=== PATIENT | female | born 1965 | race Caucasian/White ===

== ENCOUNTER 2024-09-30 13:30 | Inpatient (IN) ==
--- NOTE | 2024-09-30 13:38 | Emergency Department Note ---
Impression & Plan Recurrent carcinoma of endometrium, Ambulatory dysfunction, Candidal intertrigo, Colovaginal fistula ED Provider Note NAME: JULISA CHAVEZ AGE: 59 SEX: F : 1965 ARRIVES VIA: Walk-In INFORMANT: Patient, , daughter ED PROVIDER(S): James Chavez MD CHIEF COMPLAINT: Outpatient referral, weight gain, history of endometrial cancer MEDICAL DECISION MAKING: Patient presents due to concern for weakness fatigue and weight gain. IV was established and blood work was obtained. Reported bowel or bladder incontinence but this has been ongoing. The patient denies any current back pain he does not have any saddle anesthesia. The patient is able to move the bilateral lower extremities. CT abdomen pelvis as well as chest were performed and additional lumbar spine. Patient's blood work shows a white count of 10.8 with a hemoglobin of 9.9. The patient's platelet count is unremarkable. Kidney function with a creatinine 1.68. LFTs unremarkable. Urinalysis that showed concern for the possibility of infection. Patient was ordered IV Zosyn in light of the patient's CT abdomen pelvis which does show a colovaginal fistula. Also nonspecific wall thickening of the rectum with possible proctitis. Also hyperdense focus noted within the bladder which could be stone versus a lesion. I did inform the patient the patient's family bedside. Patient's lumbar CT negative. I did consider escalation of care and offered admission. After further discussion they would prefer inpatient care as they do not believe they are able to take care of her at home. There was to be discussion tomorrow about some additional in-home care/home health. I did speak the on-call hospitalist Harmony Branes PA-C and the patient was admitted by Dr. Valverde. Discussion w/ other healthcare providers: Harmony Barnes PA-C and Dr. Valverde inpatient medicine service Prior /Outside records reviewed: I reviewed part of a radiation treatment summary from [facility] dated from January 07, 2024. Patient with a history of stage I FIGO grade [id number] moderately differentiated adenocarcinoma of the endometrium status post ARISTEO/BSO with a local recurrence status post 3 cycles of chemo at that time. Patient had been seen by Dr. Raya at that time. Review of the patient's impression and plan from earlier today notes that the patient is on Lenvima and Keytruda should consider restaging stands and is established with palliative care as well as with urogynecology. They do believe the patient may have development of ascites and has had declining kidney function with a most recent creatinine 1.8. Patient also with reported bowel and bladder incontinence which has progressively gotten worse. Differential diagnosis: Infection, dehydration, metabolic abnormality, hypo/hyperglycemia, electrolyte imbalance, anemia, UTI, pneumonia, thyroid dysfunction among others were considered. Diagnostics, as interpreted by me: ECG: Normal sinus rhythm, rate of 75, normal intervals, normal axis no ST elevations, Q waves noted anteriorly. Cardiac monitoring: An order was placed for continuous cardiac monitoring. The monitor shows a rate of 77 with sinus rhythm. Patient was placed on pulse oximetry Medical decision rules: None Imaging studies: I informally interpreted the patient's chest x-ray does not show obvious pneumonia or pneumothorax with formal report to follow. HPI: Patient presents due to concern for outpatient referral secondary to weight gain lethargy shortness of breath. Patient does have a known history of endometrial carcinoma currently on Keytruda which she initiated about a week prior. Patient reports that she has had about a 20 pound weight gain in the last month. Patient was seen in the outpatient setting and then referred here for further evaluation and treatment after being seen by oncology today. Patient denies any chest pains but does have shortness of breath. The patient denies any falls or trauma. Family also reports that they were recently seen and placed on medication for fungal rash. Patient has noticed that she has had some skin breakdown to her abdominal and inguinal creases. Patient has had decreased mobility. PAST MEDICAL HISTORY: See Below PAST SURGICAL HISTORY: See Below SOCIAL HISTORY: See Below HOME MEDICATIONS: See Below ALLERGIES: See Below VITALS: See Below PHYSICAL EXAMINATION: GENERAL: NAD, non-toxic. Wearing glasses. EYE EXAM: Normal conjunctiva. PERRL, no anisocoria and EOM's grossly intact w/o pain. OROPHARYNX: Moist mucus membranes, grossly normal dentition. NECK: Trachea midline, no stridor. Supple, no nuchal rigidity, no adenopathy, non-tender. No signs of meningismus. FROM of the neck with good chin to chest and neck extension. LUNGS: Clear to auscultation. Normal chest wall mechanics. HEART: NSR, no MRG. ABDOMEN: Abdomen soft, right upper quadrant and epigastric pain, no lower abdominal pain, no masses, no rebound or guarding. BACK: No CVA TTP. SKIN: Significant intertriginous and moist rash noted over the folds of the lower pannus as well as the groin. UPPER EXTREMITIES: Upper extremities are grossly normal. LOWER EXTREMITIES: Grossly normal, no edema. NEURO EXAM: A&O x3, cranial nerves II-XII grossly intact, normal speech, moves all 4 extremities. Past Med/Surg History Problem List (Updated 09/30/24 @ 19:42 by James Chavez MD) Fecal incontinence Urinary incontinence Acute kidney injury superimposed on stage 3a chronic kidney disease Colovaginal fistula (Acute) Candidal intertrigo (Acute) Ambulatory dysfunction (Acute) Recurrent carcinoma of endometrium (Acute) Visual hallucinations Abnormal CT of the abdomen Hydroureteronephrosis Constipation Medical History Port-A-Cath in place Pseudotumor cerebri Iron deficiency anemia Stress incontinence Degenerative disc disease, cervical History of panic disorder Recurrent major depressive disorder hx Prediabetes per s record Hx of iron deficiency anemia Dyslipidemia Nausea and vomiting after administration of anesthetic agent w/ first Anxiety and depression History of endometrial cancer Diagnosed 12/28/21 Recurrence diagnosed on 08/06/23 Hx of migraines Sleep apnea non compliant w/device Blood in stool currently, "had been taking 10-200mg tablets per day until 06/21/23" Hypothyroidism Hypertension Restless legs syndrome Surgical History H/O tubal ligation Hx of arthroscopic knee surgery Bilateral H/O esophagogastroduodenoscopy History of arthroscopy of both knees Hx of section x2 Hx of colonoscopy [place] teeth removed Hx of total hysterectomy with removal of both tubes and ovaries laparoscopic 02/19/22 Family History Mother , in her 70s MVA (motor vehicle accident) Cancer "Throat cancer" - had larynx removed; Hypertension Father , in his 70s Myocardial infarction Prostate cancer Brother No problems noted. Brother No problems noted. Brother No problems noted. Sister No problems noted. Sister Lupus Daughter No problems noted. 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 How many Children do You have: 2 Feels Safe at Home: Yes Diet: regular caffeine: No during the past year weight has: remained stable Assistive Devices: Glasses Allergies Allergies Allergy/AdvReac Type Severity Reaction Status Date / Time gabapentin Allergy hallucinations, Verified 10/02/23 08:49 tachycardia, "arms started flying" Home Meds Home Medications Medication Instructions Recorded Confirmed ibuprofen 200 mg capsule 400 mg PO Q6H PRN Pain 06/24/23 09/30/24 lisinopril 5 mg tablet 5 mg PO QAM 06/24/23 09/30/24 docusate sodium 100 mg capsule 100 mg PO BID PRN Constipation 10/02/23 09/30/24 levothyroxine 200 mcg capsule 200 mcg PO QAM 10/02/23 09/30/24 nystatin 100,000 unit/gram topical 1 applic topical DAILY PRN Other 10/02/23 09/30/24 powder nystatin-triamcinolone 100,000 1 applic topical BID PRN Other 10/02/23 09/30/24 unit/g-0.1 % topical cream ondansetron HCl 8 mg tablet 8 mg PO Q8H PRN n/v 10/02/23 09/30/24 prochlorperazine maleate 10 mg 10 mg PO Q6H PRN n/v 10/02/23 09/30/24 tablet (Compazine) ropinirole 2 mg tablet 3 mg PO TID 10/02/23 09/30/24 B12 1 tab PO DAILY 09/30/24 09/30/24 Dilaudid 2 mg PO Q4H PRN Breakthrough Pain, 09/30/24 09/30/24 Severe clonazepam 0.5 mg tablet 0.5 - 1 mg PO HS 09/30/24 09/30/24 lenvatinib 20 mg/day (10 mg x 2) 20 mg PO DAILY 09/30/24 09/30/24 capsule (Lenvima) nortriptyline 50 mg capsule 50 mg PO HS 09/30/24 09/30/24 oxybutynin chloride 10 mg 20 mg PO DAILY 09/30/24 09/30/24 tablet,extended release 24 hr polyethylene glycol 3350 17 gram 17 g PO DAILY 09/30/24 09/30/24 oral powder packet (Miralax) urea 20 % topical cream 1 applic topical DAILY 09/30/24 09/30/24 Results & Data (ED) Vital Signs Vital Signs - 24 hr 09/30/24 13:32 09/30/24 14:36 09/30/24 14:36 Temperature 36.8 C Temperature Source Oral Pulse Rate 82 Pulse Rate from SpO2 Sensor Respiratory Rate 18 Blood Pressure 142/86 H 156/117 H 156/117 H Blood Pressure Mean 104 123 123 Pulse Oximetry 92 Oxygen Delivery Method Room Air Sepsis Recent Fever Within 48 Hours No Sepsis New/Unexplained Change in Mental Status No Sepsis Action Taken by Nursing No Action Required 09/30/24 14:36 09/30/24 14:36 09/30/24 14:36 Temperature Temperature Source Pulse Rate Pulse Rate from SpO2 Sensor Respiratory Rate Blood Pressure 156/117 H 156/117 H 156/117 H Blood Pressure Mean 123 123 123 Pulse Oximetry Oxygen Delivery Method Sepsis Recent Fever Within 48 Hours Sepsis New/Unexplained Change in Mental Status Sepsis Action Taken by Nursing 09/30/24 14:36 09/30/24 14:36 09/30/24 14:36 Temperature Temperature Source Pulse Rate Pulse Rate from SpO2 Sensor Respiratory Rate Blood Pressure 156/117 H 156/117 H 156/117 H Blood Pressure Mean 123 123 123 Pulse Oximetry Oxygen Delivery Method Sepsis Recent Fever Within 48 Hours Sepsis New/Unexplained Change in Mental Status Sepsis Action Taken by Nursing 09/30/24 14:36 09/30/24 14:36 09/30/24 14:36 Temperature Temperature Source Pulse Rate Pulse Rate from SpO2 Sensor Respiratory Rate Blood Pressure 156/117 H 156/117 H 156/117 H Blood Pressure Mean 123 123 123 Pulse Oximetry Oxygen Delivery Method Sepsis Recent Fever Within 48 Hours Sepsis New/Unexplained Change in Mental Status Sepsis Action Taken by Nursing 09/30/24 14:36 09/30/24 14:36 09/30/24 14:36 Temperature Temperature Source Pulse Rate Pulse Rate from SpO2 Sensor Respiratory Rate Blood Pressure 156/117 H 156/117 H 156/117 H Blood Pressure Mean 123 123 123 Pulse Oximetry Oxygen Delivery Method Sepsis Recent Fever Within 48 Hours Sepsis New/Unexplained Change in Mental Status Sepsis Action Taken by Nursing 09/30/24 14:36 09/30/24 14:36 09/30/24 14:36 Temperature Temperature Source Pulse Rate Pulse Rate from SpO2 Sensor Respiratory Rate Blood Pressure 156/117 H 156/117 H 156/117 H Blood Pressure Mean 123 123 123 Pulse Oximetry Oxygen Delivery Method Sepsis Recent Fever Within 48 Hours Sepsis New/Unexplained Change in Mental Status Sepsis Action Taken by Nursing 09/30/24 14:36 09/30/24 14:36 09/30/24 14:36 Temperature Temperature Source Pulse Rate Pulse Rate from SpO2 Sensor Respiratory Rate Blood Pressure 156/117 H 156/117 H 156/117 H Blood Pressure Mean 123 123 123 Pulse Oximetry Oxygen Delivery Method Sepsis Recent Fever Within 48 Hours Sepsis New/Unexplained Change in Mental Status Sepsis Action Taken by Nursing 09/30/24 14:36 09/30/24 14:36 09/30/24 14:41 Temperature Temperature Source Pulse Rate 69 Pulse Rate from SpO2 Sensor Respiratory Rate Blood Pressure 156/117 H 156/117 H Blood Pressure Mean 123 123 Pulse Oximetry Oxygen Delivery Method Sepsis Recent Fever Within 48 Hours Sepsis New/Unexplained Change in Mental Status Sepsis Action Taken by Nursing 09/30/24 14:42 09/30/24 15:00 09/30/24 15:05 Temperature Temperature Source Pulse Rate 76 92 H Pulse Rate from SpO2 Sensor 76 77 Respiratory Rate 27 H 24 Blood Pressure Blood Pressure Mean Pulse Oximetry 91 91 Oxygen Delivery Method Room Air Sepsis Recent Fever Within 48 Hours Sepsis New/Unexplained Change in Mental Status Sepsis Action Taken by Nursing 09/30/24 15:33 09/30/24 15:36 09/30/24 15:36 Temperature Temperature Source Pulse Rate 65 Pulse Rate from SpO2 Sensor 76 Respiratory Rate 22 Blood Pressure 120/85 120/85 Blood Pressure Mean 100 100 Pulse Oximetry 90 Oxygen Delivery Method Sepsis Recent Fever Within 48 Hours Sepsis New/Unexplained Change in Mental Status Sepsis Action Taken by Nursing 09/30/24 15:36 09/30/24 15:36 09/30/24 15:36 Temperature Temperature Source Pulse Rate 69 Pulse Rate from SpO2 Sensor 74 Respiratory Rate 23 Blood Pressure 120/85 120/85 Blood Pressure Mean 100 100 Pulse Oximetry 91 Oxygen Delivery Method Sepsis Recent Fever Within 48 Hours Sepsis New/Unexplained Change in Mental Status Sepsis Action Taken by Nursing 09/30/24 15:36 09/30/24 15:36 09/30/24 15:36 Temperature Temperature Source Pulse Rate Pulse Rate from SpO2 Sensor Respiratory Rate Blood Pressure 120/85 120/85 120/85 Blood Pressure Mean 100 100 100 Pulse Oximetry Oxygen Delivery Method Sepsis Recent Fever Within 48 Hours Sepsis New/Unexplained Change in Mental Status Sepsis Action Taken by Nursing 09/30/24 15:48 09/30/24 16:00 09/30/24 16:00 Temperature Temperature Source Pulse Rate 66 Pulse Rate from SpO2 Sensor 72 Respiratory Rate 19 Blood Pressure 137/81 137/81 Blood Pressure Mean 124 124 Pulse Oximetry 95 Oxygen Delivery Method Sepsis Recent Fever Within 48 Hours Sepsis New/Unexplained Change in Mental Status Sepsis Action Taken by Nursing 09/30/24 16:00 09/30/24 16:00 09/30/24 16:00 Temperature Temperature Source Pulse Rate Pulse Rate from SpO2 Sensor Respiratory Rate Blood Pressure 137/81 137/81 137/81 Blood Pressure Mean 124 124 124 Pulse Oximetry Oxygen Delivery Method Sepsis Recent Fever Within 48 Hours Sepsis New/Unexplained Change in Mental Status Sepsis Action Taken by Nursing 09/30/24 16:00 09/30/24 16:03 09/30/24 16:24 Temperature Temperature Source Pulse Rate 55 L 67 Pulse Rate from SpO2 Sensor 73 74 Respiratory Rate 24 16 Blood Pressure 137/81 129/80 Blood Pressure Mean 124 96 Pulse Oximetry 91 91 Oxygen Delivery Method Sepsis Recent Fever Within 48 Hours Sepsis New/Unexplained Change in Mental Status Sepsis Action Taken by Nursing 09/30/24 16:33 09/30/24 16:57 09/30/24 17:00 Temperature Temperature Source Pulse Rate 57 L 75 Pulse Rate from SpO2 Sensor 74 75 Respiratory Rate 24 28 H Blood Pressure 148/92 H Blood Pressure Mean 99 Pulse Oximetry 91 91 Oxygen Delivery Method Sepsis Recent Fever Within 48 Hours Sepsis New/Unexplained Change in Mental Status Sepsis Action Taken by Nursing 09/30/24 17:00 09/30/24 17:00 09/30/24 17:03 Temperature Temperature Source Pulse Rate 72 Pulse Rate from SpO2 Sensor 78 Respiratory Rate 27 H Blood Pressure 148/92 H 148/92 H Blood Pressure Mean 99 99 Pulse Oximetry 90 Oxygen Delivery Method Sepsis Recent Fever Within 48 Hours Sepsis New/Unexplained Change in Mental Status Sepsis Action Taken by [facility] Medications Current Medication List: was personally reviewed by me Laboratory Data Attestation: I reviewed the patient's lab results. 09/30/24 15:31 09/30/24 15:31 Lab Results 09/30/24 09/30/24 Range/Units 14:30 15:31 WBC 10.81 H (4.8-10.8) K/ul RBC 3.94 L (4.20-5.40) M/uL Hgb 9.9 L (12.0-16.0) g/dl Hct 32.4 L (37.0-47.0) % MCV 82.2 (80.0-100.0) fL MCH 25.1 (25.0-34.0) pg MCHC 30.6 L (32.0-36.0) g/dL RDW Std Deviation 54.3 H (36.4-46.3) fL RDW Coeff of Rodri 18.6 H (11.5-14.5) % Plt Count 268 (130-400) K/uL MPV 8.6 L (9.4-12.4) fL Immature Gran % (Auto) 0.6 % Neut % (Auto) 83.4 % Lymph % (Auto) 4.9 % [place] % (Auto) 10.2 % Eos % (Auto) 0.6 % Baso % (Auto) 0.3 % Neut # (Auto) 9.02 H (1.40-6.50) K/uL Lymph # (Auto) 0.53 L (1.20-3.40) K/uL [place] # (Auto) 1.10 H (0.11-0.59) K/uL Eos # (Auto) 0.07 (0.00-0.50) K/uL Baso # (Auto) 0.03 (0.00-0.20) K/uL Immature Gran # (Auto) 0.06 (0.01-0.20) K/uL PT 11.4 (9.0-12.0) Seconds INR 1.1 (0.9-1.1) Sodium 138 (136-145) mmol/L Potassium 4.8 (3.5-5.1) mmol/L Chloride 104 (98-107) mmol/L Carbon Dioxide 27 (21-32) mmol/L Anion Gap 7 (3-11) BUN 26 H (6-23) mg/dl Creatinine 1.68 H (0.6-1.2) mg/dl Est Cr Clr Drug Dosing Not Reportable eGFR 34.82 BUN/Creatinine Ratio 15.5 (10-20) Glucose 103 H (70-99(Fasting)) mg/dl Calcium 9.1 (8.6-10.3) mg/dl Magnesium 2.2 (1.7-2.4) mg/dl Total Bilirubin 0.7 (0.2-1.0) mg/dl AST 20 (13-39) U/L ALT 22 (7-52) U/L Alkaline Phosphatase 97 (34-104) U/L Total Protein 6.9 (6.0-8.3) gm/dl Albumin 3.5 (3.4-5.0) gm/dl Globulin 3.4 (2.5-4.0) gm/dl Albumin/Globulin Ratio 1.0 (0.9-2) TSH 2.832 (0.300-4.500) uIu/ml Urine Color Yellow Urine Appearance Cloudy A (Clear) Urine pH 5.5 (4.5-7.5) Ur Specific [place] 1.018 (1.000-1.030) Urine Protein 1+ H (Negative) Urine Glucose (UA) Negative (Negative) Urine Ketones Trace H (Negative) Urine Blood 2+ H (Negative) Urine Nitrite Negative (Negative) Urine Bilirubin Negative (Negative) Urine Urobilinogen Negative (Negative) Ur Leukocyte Esterase 3+ H (Negative) Urine WBC (Auto) >50 H (0-5) /hpf Urine RBC (Auto) 11-20 H (0-2) /hpf U Hyaline Cast (Auto) 3-5 H (0-2) /lpf U Epithel Cells (Auto) 6-10 H (0-2) /hpf Urine Bacteria (Auto) 3+ H (None Seen) Administered Medications Discontinued Medications Piperacillin Sod/Tazobactam Sod (Zosyn) 4.5 gm in 100 mls @ 200 mls/hr IV NOW ONE; Protocol Stop: 09/30/24 16:23 Last Infusion: 09/30/24 16:56 Dose: Infused Documented By: Admin: 09/30/24 16:24 Dose: 200 mls/hr Documented By: BS Imaging Data Radiologist's Impression: Abdomen/Pelvis CT 09/30/24 14:05 CT chest diagnostic wo con, CT abd pelvis wo con CLINICAL HISTORY: 59 years-old Female with SOB. Acute shortness of breath with history of endometrial carcinoma TECHNIQUE: Multiaxial CT images of the chest, abdomen and pelvis were performed without contrast. A dose lowering technique was utilized adhering to the principles of ALARA. COMPARISON: CT lumbar spine same day FINDINGS: CT CHEST: Unremarkable thyroid. Right IJ [id number] catheter distal tip terminates in the inferior SVC. Trace pericardial effusion. No lymphadenopathy. No pneumothorax, pleural effusion or airspace consolidation. Mild bibasilar atelectasis. Calcified granuloma of the left lower lobe. Central airways are patent. Unremarkable soft tissues. No acute fracture or destructive bone lesion. CT ABDOMEN AND PELVIS: No pneumatosis or pneumoperitoneum. Unremarkable spleen, pancreas and adrenal glands. Mildly distended gallbladder. Liver is within normal limits. Unremarkable left kidney. Moderate right-sided hydroureteronephrosis with dilation of the right ureter extending to the UVJ. No obstructing calculus or lesion identified. Decompressed urinary bladder with wall thickening. Hyperdense focus within the midline lower urinary bladder measures 1.4 cm. Atherosclerosis of the abdominal aorta. No pathologically enlarged lymph nodes. No bowel obstruction. Hysterectomy. Air-filled tract extending vaginal cuff towards the sigmoid colon image 28 series 7. Rectal wall thickening with perirectal stranding. Moderate fecal retention. Marked soft tissues. No acute or destructive bone lesion. IMPRESSION: 1. Moderate right-sided hydroureteronephrosis without obstructing stone or lesion identified. 2. Hyperdense focus within the dependent urinary bladder may represent a stone versus a mucosal lesion. Findings could be correlated with cystoscopy. 3. Prior hysterectomy with colovaginal fistula. 4. Nonspecific wall thickening of the rectum with perirectal stranding may represent a nonspecific proctitis. 5. No bowel obstruction or pneumoperitoneum. 6. No acute intrathoracic abnormality. ACT 112: Negative or not required by law. Electronically signed by: Sathya Gupta M.D. 09/30/2024 3:[address] 09/30/24 14:05 CT chest diagnostic wo con, CT abd pelvis wo con CLINICAL HISTORY: 59 years-old Female with SOB. Acute shortness of breath with history of endometrial carcinoma TECHNIQUE: Multiaxial CT images of the chest, abdomen and pelvis were performed without contrast. A dose lowering technique was utilized adhering to the principles of ALARA. COMPARISON: CT lumbar spine same day FINDINGS: CT CHEST: Unremarkable thyroid. Right IJ [id number] catheter distal tip terminates in the inferior SVC. Trace pericardial effusion. No lymphadenopathy. No pneumothorax, pleural effusion or airspace consolidation. Mild bibasilar atelectasis. Calcified granuloma of the left lower lobe. Central airways are patent. Unremarkable soft tissues. No acute fracture or destructive bone lesion. CT ABDOMEN AND PELVIS: No pneumatosis or pneumoperitoneum. Unremarkable spleen, pancreas and adrenal glands. Mildly distended gallbladder. Liver is within normal limits. Unremarkable left kidney. Moderate right-sided hydroureteronephrosis with dilation of the right ureter extending to the UVJ. No obstructing calculus or lesion identified. Decompressed urinary bladder with wall thickening. Hyperdense focus within the midline lower urinary bladder measures 1.4 cm. Atherosclerosis of the abdominal aorta. No pathologically enlarged lymph nodes. No bowel obstruction. Hysterectomy. Air-filled tract extending vaginal cuff towards the sigmoid colon image 28 series 7. Rectal wall thickening with perirectal stranding. Moderate fecal retention. Marked soft tissues. No acute or destructive bone lesion. IMPRESSION: 1. Moderate right-sided hydroureteronephrosis without obstructing stone or lesion identified. 2. Hyperdense focus within the dependent urinary bladder may represent a stone versus a mucosal lesion. Findings could be correlated with cystoscopy. 3. Prior hysterectomy with colovaginal fistula. 4. Nonspecific wall thickening of the rectum with perirectal stranding may represent a nonspecific proctitis. 5. No bowel obstruction or pneumoperitoneum. 6. No acute intrathoracic abnormality. ACT 112: Negative or not required by law. Electronically signed by: Sathya Gupta M.D. 09/30/2024 3:04 PM Chest X-Ray 09/30/24 14:05 XR chest 1V portable CLINICAL HISTORY: weakness COMPARISON STUDY: Chest CT earlier today FINDINGS: Stable right chest port. Stable mild cardiomegaly without pulmonary vascular congestion. No effusion, consolidation, or pneumothorax. IMPRESSION: No acute findings. ACT 112: Negative or not required by law. Electronically signed by: Kirby Avila M.D. 09/30/2024 3:[address] 09/30/24 14:25 CT lumbar spine wo con CLINICAL HISTORY: endometrial cancer/mass; incontinence COMPARISON STUDY: 07/22/2023. FINDINGS: There is attenuation artifact due to habitus. There is osteopenia. There is moderate degenerative disc disease at L4-5 and L5-S1. There is minimal grade 1 anterolisthesis of L4 on 5. No fracture seen. No severe central canal or neural foraminal narrowing seen. IMPRESSION: 1. No lumbar spine fracture seen. 2. Lower lumbar degenerative changes without severe central canal or neuroforaminal narrowing. ACT 112: Negative or not required by law. Electronically signed by: Kirby Avila M.D. 09/30/2024 2:55 PM Discharge Plan Visit Data Chief Complaint: Referred by Doctor Stated Complaint: ONCOLOGY REFERED ED Provider: James Chavez Discharge Problem: Recurrent carcinoma of endometrium, Ambulatory dysfunction, Candidal intertrigo, Colovaginal fistula Forms Stand Alone Forms: [employer] Prescriptions Prescriptions: No Action nystatin 100,000 unit/gram powder 1 applic topical DAILY PRN (Reason: Other) nystatin-triamcinolone 100,000-0.1 unit/g-% cream 1 applic topical BID PRN (Reason: Other) ropinirole 2 mg tablet 3 mg PO TID levothyroxine 200 mcg capsule 200 mcg PO QAM ondansetron HCl 8 mg tablet 8 mg PO Q8H PRN (Reason: n/v) prochlorperazine maleate [Compazine] 10 mg tablet 10 mg PO Q6H PRN (Reason: n/v) docusate sodium 100 mg capsule 100 mg PO BID PRN (Reason: Constipation) ibuprofen 200 mg Capsule 400 mg PO Q6H PRN (Reason: Pain) lisinopril 5 mg Tablet 5 mg PO QAM B12 1 tab PO DAILY oxybutynin chloride 10 mg Tablet Extended Release 24hr 20 mg PO DAILY urea 20 % Cream 1 applic TOPICAL DAILY Rx Instructions: Apply topically to affected area 2 times a day. Apply topically to hands and feet twice daily - Topical. clonazepam 0.5 mg Tablet 0.5 - 1 mg PO HS Rx Instructions: administer 30 minutes before bedtime nortriptyline 50 mg Capsule 50 mg PO HS Lenvima 20 mg/day (10 mg x 2) Capsule 20 mg PO DAILY Dilaudid 2 mg tablet 2 mg PO Q4H PRN (Reason: Breakthrough Pain, Severe) Rx Instructions: Take 1 Tablet by mouth every 4 hours as needed for Pain, Severe. polyethylene glycol 3350 [Miralax] 17 gram Powder In Packet 17 g PO DAILY Referrals Referrals: Lashawn Becker MD [Primary Care Provider] -
--- NOTE | 2024-09-30 14:56 | CT Scan Report ---
CT lumbar spine wo con CLINICAL HISTORY: endometrial cancer/mass; incontinence COMPARISON STUDY: 07/22/2023. FINDINGS: There is attenuation artifact due to habitus. There is osteopenia. There is moderate degene rative disc disease at L4-5 and L5-S1. There is minimal grade 1 anterolisthesis of L4 on 5. No fractu re seen. No severe central canal or neural foraminal narrowing seen. IMPRESSION: 1. No lumbar spine fracture seen. 2. Lower lumbar degenerative changes without severe central canal or neuroforaminal narrowing. ACT 112: Negative or not required by law. Electronically signed by: Kirby Avila M.D. 09/30/2024 2:55 PM
--- NOTE | 2024-09-30 15:06 | CT Scan Report ---
CT chest diagnostic wo con, CT abd pelvis wo con CLINICAL HISTORY: 59 years-old Female with SOB. Acute shortness of breath with history of endometria l carcinoma TECHNIQUE: Multiaxial CT images of the chest, abdomen and pelvis were performed without contrast. A dose lowering technique was utilized adhering to the principles of ALARA. COMPARISON: CT lumbar spine same day FINDINGS: CT CHEST: Unremarkable thyroid. Right IJ [id number] catheter distal tip terminates in the inferior SVC. Trace pericardial effusion. No lymphadenopathy. No pneumothorax, pleural effusion or airspace c onsolidation. Mild bibasilar atelectasis. Calcified granuloma of the left lower lobe. Central airways are patent. Unremarkable soft tissues. No acute fracture or destructive bone lesion. CT ABDOMEN AND PELVIS: No pneumatosis or pneumoperitoneum. Unremarkable spleen, pancreas and adrenal glands. Mildly distended gallbladder. Liver is within normal limits. Unremarkable left kidney. Modera te right-sided hydroureteronephrosis with dilation of the right ureter extending to the UVJ. No obstr ucting calculus or lesion identified. Decompressed urinary bladder with wall thickening. Hyperdense f ocus within the midline lower urinary bladder measures 1.4 cm. Atherosclerosis of the abdominal aorta . No pathologically enlarged lymph nodes. No bowel obstruction. Hysterectomy. Air-filled tract extending vaginal cuff towards the sigmoid colon image 28 series 7. Rectal wall thickening with perirectal stranding. Moderate fecal retention. Marke d soft tissues. No acute or destructive bone lesion. IMPRESSION: 1. Moderate right-sided hydroureteronephrosis without obstructing stone or lesion identified. 2. Hyperdense focus within the dependent urinary bladder may represent a stone versus a mucosal lesio n. Findings could be correlated with cystoscopy. 3. Prior hysterectomy with colovaginal fistula. 4. Nonspecific wall thickening of the rectum with perirectal stranding may represent a nonspecific pr octitis. 5. No bowel obstruction or pneumoperitoneum. 6. No acute intrathoracic abnormality. ACT 112: Negative or not required by law. Electronically signed by: Sathya Gupta M.D. 09/30/2024 3:04 PM
[2024-09-30 15:20] LABS: Appearance Urine Cloudy (Clear); Bacteria Urine Automated 3+ (None Seen); Bilirubin Urine Negative (Negative); Blood Urine 2+ (Negative); Color Urine Yellow; Glucose Urine UA Negative (Negative); Ketones Urine Trace (Negative); Leukocyte Esterase Urine 3+ (Negative); Nitrite Urine Negative (Negative); Protein Urine 1+ (Negative); Specific Gravity Urine 1.018 (1.000-1.030); Urobilinogen Urine Negative (Negative); WBC Urine Automated >50 /hpf (0-5); pH Urine 5.5 (4.5-7.5)
--- NOTE | 2024-09-30 15:29 | XRay Report ---
XR chest 1V portable CLINICAL HISTORY: weakness COMPARISON STUDY: Chest CT earlier today FINDINGS: Stable right chest port. Stable mild cardiomegaly without pulmonary vascular congestion. No effusion, consolidation, or pneumothorax. IMPRESSION: No acute findings. ACT 112: Negative or not required by law. Electronically signed by: Kirby Avila M.D. 09/30/2024 3:27 PM
[2024-09-30 15:46] LABS: Basophils # (auto) 0.03 K/uL (0.00-0.20); Basophils % (auto) 0.3 %; Eosinophils # (auto) 0.07 K/uL (0.00-0.50); Eosinophils % (auto) 0.6 %; Hematocrit (blood only) 32.4 % (37.0-47.0); Hemoglobin 9.9 g/dl (12.0-16.0); Immature Granulocytes # (auto) 0.06 K/uL (0.01-0.20); Immature Granulocytes % (auto) 0.6 %; Lymphocytes # (auto) 0.53 K/uL (1.20-3.40); Lymphocytes % (auto) 4.9 %; Mean Corpuscular Hemoglobin 25.1 pg (25.0-34.0); Mean Corpuscular Hgb Conc 30.6 g/dL (32.0-36.0); Mean Corpuscular Volume 82.2 fL (80.0-100.0); Mean Platelet Volume 8.6 fL (9.4-12.4); Monocytes % (auto) 10.2 %; Neutrophils # (auto) 9.02 K/uL (1.40-6.50); Neutrophils % (auto) 83.4 %; Platelet Count 268 K/uL (130-400); RDW Coefficient of Variation 18.6 % (11.5-14.5); RDW Standard Deviation 54.3 fL (36.4-46.3); Red Blood Count 3.94 M/uL (4.20-5.40); White Blood Count 10.81 K/ul (4.8-10.8)
[2024-09-30 16:10] LABS: Alanine Aminotransferase 22 U/L (7-52); Albumin Level 3.5 gm/dl (3.4-5.0); Alkaline Phosphatase 97 U/L (34-104); Anion Gap 7 (3-11); Aspartate Aminotransferase 20 U/L (13-39); BUN Creatinine Ratio 15.5 (10-20); Bilirubin,Total 0.7 mg/dl (0.2-1.0); Blood Urea Nitrogen 26 mg/dl (6-23); Calcium 9.1 mg/dl (8.6-10.3); Carbon Dioxide 27 mmol/L (21-32); Chloride 104 mmol/L (98-107); Globulin 3.4 gm/dl (2.5-4.0); Glucose 103 mg/dl (70-99(Fasting)); Magnesium 2.2 mg/dl (1.7-2.4); Potassium 4.8 mmol/L (3.5-5.1); Sodium 138 mmol/L (136-145); Total Protein 6.9 gm/dl (6.0-8.3)
[2024-09-30 16:23] LABS: INR 1.1 (0.9-1.1); Prothrombin Time 11.4 Seconds (9.0-12.0)
[2024-09-30 16:24] LABS: Thyroid Stimulating Hormone 2.832 uIu/ml (0.300-4.500)
[2024-09-30] MEDS: PIPERACILLIN/TAZOBACTAM 4.5 GM/100 ML BAG IV ONE (16:24)
--- NOTE | 2024-09-30 17:12 | History & Physical Report ---
Date of Service September 30, 2024 Assessment & Plan (1) Hydroureteronephrosis: (2) Ambulatory dysfunction: (3) Abnormal CT of the abdomen: (4) Recurrent carcinoma of endometrium: Plan: Lissette valentino 59y/o F with PMHx significant for hypothyroidism, HLD, HTN, prediabetes, CHON with intolerance to CPAP, vitamin B deficiency, vitamin D deficiency, severe obesity, recurrent endometrial cancer, iron deficiency anemia, CKD stage IIIa, urge incontinence of urine, restless leg syndrome, cervical DDD, pseudotumor cerebri syndrome, depression, anxiety and persistent insomnia who presented to the ED via referral by her outpatient oncologist for evaluation multiple complaints including increased generalized weakness, decrease in overall mobility, SOB, weight gain and worsening candidal intertrigo beneath her abdominal folds. Known recurrent endometrial cancer. Follows with Dr. Wilson of [facility] Hematology/Oncology. First diagnosed in December 2021 and she underwent robotic assisted total laparoscopic hysterectomy with bilateral salpingo-oophorectomy and bilateral sentinel pelvic lymph node dissection with pathology consistent with endometrioid adenocarcinoma. Postoperatively patient required no further treatment up until she experienced an episode of rectal bleeding and had a colonoscopy done in June 2023 which revealed ulcerated mucosa with stigmata of recent bleeding present in the sigmoid colon. Biopsy was positive for atypical glands most consistent with metastatic carcinoma of endometrial origin. Had both chest CT and CTAP done in July 2023 which revealed a heterogenous masslike enlargement of the uterus which extended to the endocervical canal highly concerning for neoplasm. The mass was noted to be inseparable from the urinary bladder anteriorly and sigmoid colon posteriorly subsequently raising concern for invasion. Core biopsy from the masses was positive for metastatic carcinoma favoring endometrial adenocarcinoma. She completed 3 cycles of chemotherapy including combination of Taxol and carboplatin and also completed radiation therapy. Postradiation therapy she received 3 cycles of single agent carboplatin. Because of neuropathy the Taxol was omitted. She received last dose of chemotherapy on 03/10/2024. Had subsequent follow-up CT chest and CTAP in August 2024 which revealed a mass that appeared to involve the vaginal cuff, posterior aspect of the urinary bladder and inferior aspect of the sigmoid colon measuring approximately 5.7 x 3.9 x 3.4 cm, previously 5.3 x 3.4 x 3.1 cm. Mass presumably reflects the patient's known recurrent endometrial cancer. Also noted new moderate right and mild left hydroureteronephrosis secondary to the mass. It was also noted that there was air present within the vaginal cuff which is nonspecific but raises the possibility of a colovaginal fistula. She is currently on a chemotherapy regimen consisting of Lenvima and Keytruda. Currently on day 14 of the Lenvima. Received dose of Keytruda today. Now with progressively worsening generalized weakness over the past month with significant decline in her overall mobility and 20lb weight gain. Recently saw [facility] Medicine yesterday. Started on fentanyl patch for long-acting pain relief and PRN oral Dilaudid 2mg every 4 hours for breakthrough pain. Repeat CTAP today with moderate right-sided hydroureteronephrosis without obstructing stone or lesion however there is noted hyperdense focus within the d ependent urinary bladder which may represent a stone versus mucosal lesion. Appreciate urology consult regarding this. Will keep patient NPO after midnight in anticipation for possible urological intervention tomorrow. UA appears infected with 3+ LE, >50 WBC and 3+ bacteria. CTAP also raise concern for nonspecific wall thickening of the rectum with perirectal stranding which may represent a nonspecific proctitis. Will ultimately cover with IV Zosyn plus po doxycycline for now. Follow urine and blood cultures. Bladder scan QS. Obtain PT/OT evaluations. (5) Visual hallucinations: Plan: Daughter endorses that she has been having some visual hallucinations over the past 2 weeks in addition to a "hard time coming up with words" occasionally. Given known recurrence of endometrial cancer, will obtain brain MRI with and without contrast to rule out the possibility of possible brain metastasis. (6) Acute kidney injury superimposed on stage 3a chronic kidney disease: Plan: Patient noted to have an TIMMY with Cr of 1.68 on admission in the setting of above postobstructive uropathy. Baseline Cr ~1.3-1.5 per chart review. Urology consult pending. Will ultimately hold off on IVF for now and repeat BMP in the AM. Avoid nephrotoxic medications when able. Renally dose medications when able. (7) Candidal intertrigo: Plan: Worsening candidal intertrigo beneath her abdominal folds/pannus - noted that previous clotrimazole cream has been ineffective. Appreciate wound care consult. Will obtain wound culture of this area. Give dose of oral fluconazole now. Continue topical coverage with nystatin powder and miconazole cream. (8) Colovaginal fistula: Plan: Noted on above imaging. Will need outpatient follow-up regarding this. Could possibly be contributing to contamination on UA and subsequent urine culture results. (9) Fecal incontinence: Plan: Lumbar spine CT with no evidence of fracture. Noted lower lumbar degenerative changes however no evidence of severe central canal or neuroforaminal narrowing to explain etiology of fecal incontinence. Denies any saddle anesthesia. 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 Other Chronic Medical Conditions: Hypothyroidism - TSH WNL. Continue levothyroxine. RLS - Continue ropinirole. LEFTY/Depression - Continue Klonopin HS to alleviate anxiety. Can also continue nortriptyline. HTN - Continue lisinopril with routine BP monitoring. DVT Prophylaxis: SCDs/TEDs for now in anticipation for possible urological procedure as per above. Code Status: FULL CODE PCP: Lashawn Becker MD Disposition: Admit to med/telemetry for further inpatient evaluation and management. Patient seen in collaboration with Dr. Valverde. Please see addendum. I spent a total of 65 minutes coordinating, documenting, and providing care for this patient excluding time spent in the performance of separately billed services or time spent by another provider/QHP. This included personally reviewing all current laboratories and imaging studies, medical reconciliation, outpatient chart review and discussion with specialists. This chart was completed in part utilizing Speech Voice Recognition Software. Grammatical errors, random word insertions, pronoun errors, and incomplete sentences are an occasional consequence of this system due to software limitations, ambient noise, and hardware issues. Any formal questions or concerns about the content, text, or information contained within the body of this dictation should be directly addressed to the provider for clarification. History of Present Illness Chief Complaint: Referred by julianne Heme/Onc: Increased Weakness, SOB, Weight Gain and Wound on Right Abdomen Primary Care Provider: Lashawn Becker MD Lissette Chavez a 59y/o F with PMHx significant for hypothyroidism, HLD, HTN, prediabetes, CHON with intolerance to CPAP, vitamin B deficiency, vitamin D deficiency, severe obesity, recurrent endometrial cancer, iron deficiency anemia, CKD stage IIIa, urge incontinence of urine, restless leg syndrome, cervical DDD, pseudotumor cerebri syndrome, depression, anxiety and persistent insomnia who presented to the ED via referral by her outpatient oncologist for evaluation multiple complaints including increased generalized weakness, decrease in overall mobility, SOB, weight gain and worsening candidal intertrigo beneath her abdominal folds. History obtained from the patient, daughter at bedside and associated chart review. Known recurrent endometrial cancer. Follows with Dr. Wilson of [facility] Hematology/Oncology. First diagnosed in December 2021 and she underwent robotic assisted total laparoscopic hysterectomy with bilateral salpingo-oophorectomy and bilateral sentinel pelvic lymph node dissection with pathology consistent with endometrioid adenocarcinoma. Postoperatively patient required no further treatment up until she experienced an episode of rectal bleeding and had a colonoscopy done in June 2023 which revealed ulcerated mucosa with stigmata of recent bleeding present in the sigmoid colon. Biopsy was positive for atypical glands most consistent with metastatic carcinoma of endometrial origin. Had both chest CT and CTAP done in July 2023 which revealed a heterogenous masslike enlargement of the uterus which extended to the endocervical canal highly concerning for neoplasm. The mass was noted to be inseparable from the urinary bladder anteriorly and sigmoid colon posteriorly subsequently raising c oncern for invasion. Core biopsy from the masses was positive for metastatic carcinoma favoring endometrial adenocarcinoma. She completed 3 cycles of chemotherapy including combination of Taxol and carboplatin and also completed radiation therapy. Postradiation therapy she received 3 cycles of single agent carboplatin. Because of neuropathy the Taxol was omitted. She received last dose of chemotherapy on 03/10/2024. Had subsequent follow-up CT chest and CTAP in August 2024 which revealed a mass that appeared to involve the vaginal cuff, posterior aspect of the urinary bladder and inferior aspect of the sigmoid colon measuring approximately 5.7 x 3.9 x 3.4 cm, previously 5.3 x 3.4 x 3.1 cm. Mass presumably reflects the patient's known recurrent endometrial cancer. Also noted new moderate right and mild left hydroureteronephrosis secondary to the mass. It was also noted that there was air present within the vaginal cuff which is nonspecific but raises the possibility of a colovaginal fistula. She is currently on a chemotherapy regimen consisting of Lenvima and Keytruda. Currently on day 14 of the Lenvima. Received dose of Keytruda today. Progressively worsening generalized weakness over the past month with significant decline in her overall mobility. Patient unable to walk even a few steps without significant assistance and feeling short of breath. Has been using a walker at home however can barely stand without assistance. Approximate weight gain of about 20 pounds in the last month or so. Also with worsening candidal intertrigo beneath her abdominal folds/pannus - noted that previous clotrimazole cream has been ineffective. Patient has been using nystatin powder without much improvement unfortunately and has a lot of pain with palpation of this area. Recently saw [facility] yesterday. Started on fentanyl patch for long-acting pain relief and PRN oral Dilaudid 2mg every 4 hours for breakthrough pain. Daughter endorses that she has been having some visual hallucinations over the past 2 weeks in addition to a "hard time coming up with words" occasionally. Also with bowel and urinary incontinence. Endorses that she now needs to wear incontinence briefs. No urinary burning or discomfort however did note hematuria today. Allergies Allergy/AdvReac Type Severity Reaction Status Date / Time gabapentin Allergy hallucinations, Verified 10/02/23 08:49 tachycardia, "arms started flying" Home Medications Medication Instructions Recorded Confirmed Type ibuprofen 200 mg capsule 400 mg PO Q6H PRN Pain 06/24/23 09/30/24 History lisinopril 5 mg tablet 5 mg PO QAM 06/24/23 09/30/24 History docusate sodium 100 mg capsule 100 mg PO BID PRN Constipation 10/02/23 09/30/24 History levothyroxine 200 mcg capsule 200 mcg PO QAM 10/02/23 09/30/24 History nystatin 100,000 unit/gram topical 1 applic topical DAILY PRN Other 10/02/23 09/30/24 History powder nystatin-triamcinolone 100,000 1 applic topical BID PRN Other 10/02/23 09/30/24 History unit/g-0.1 % topical cream ondansetron HCl 8 mg tablet 8 mg PO Q8H PRN n/v 10/02/23 09/30/24 History prochlorperazine maleate 10 mg 10 mg PO Q6H PRN n/v 10/02/23 09/30/24 History tablet (Compazine) ropinirole 2 mg tablet 3 mg PO TID 10/02/23 09/30/24 History B12 1 tab PO DAILY 09/30/24 09/30/24 History Dilaudid 2 mg PO Q4H PRN Breakthrough Pain, 09/30/24 09/30/24 History Severe clonazepam 0.5 mg tablet 0.5 - 1 mg PO HS 09/30/24 09/30/24 History lenvatinib 20 mg/day (10 mg x 2) 20 mg PO DAILY 09/30/24 09/30/24 History capsule (Lenvima) nortriptyline 50 mg capsule 50 mg PO HS 09/30/24 09/30/24 History oxybutynin chloride 10 mg 20 mg PO DAILY 09/30/24 09/30/24 History tablet,extended release 24 hr polyethylene glycol 3350 17 gram 17 g PO DAILY 09/30/24 09/30/24 History oral powder packet (Miralax) urea 20 % topical cream 1 applic topical DAILY 09/30/24 09/30/24 History Past Med/Surg History Problem List (Updated 09/30/24 @ 19:42 by James Chavez MD) Fecal incontinence Urinary incontinence Acute kidney injury superimposed on stage 3a chronic kidney disease Colovaginal fistula (Acute) Candidal intertrigo (Acute) Ambulatory dysfunction (Acute) Recurrent carcinoma of endometrium (Acute) Visual hallucinations Abnormal CT of the abdomen Hydroureteronephrosis Constipation Medical History Port-A-Cath in place Pseudotumor cerebri Iron deficiency anemia Stress incontinence Degenerative disc disease, cervical History of panic disorder Recurrent major depressive disorder hx Prediabetes per [facility] record Hx of iron deficiency anemia Dyslipidemia Nausea and vomiting after administration of anesthetic agent w/ first Anxiety and depression History of endometrial cancer Diagnosed 12/28/21 Recurrence diagnosed on 08/06/23 Hx of migraines Sleep apnea non compliant w/device Blood in stool currently, "had been taking 10-200mg tablets per day until 06/21/23" Hypothyroidism Hypertension Restless legs syndrome Surgical History H/O tubal ligation Hx of arthroscopic knee surgery Bilateral H/O esophagogastroduodenoscopy History of arthroscopy of both knees Hx of section x2 Hx of colonoscopy [place] teeth removed Hx of total hysterectomy with removal of both tubes and ovaries laparoscopic 02/19/22 Family History Mother , in her 70s MVA (motor vehicle accident) Cancer "Throat cancer" - had larynx removed; Hypertension Father , in his 70s Myocardial infarction Prostate cancer Brother No problems noted. Brother No problems noted. Brother No problems noted. Sister No problems noted. Sister Lupus Daughter No problems noted. 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 Physical Exam Physical Exam: Please refer to Dr. Valverde's addendum for physical examination findings. Results & Data Results & Data Vital Signs (Past 12 Hours) Vital Signs Temp Pulse Resp BP Pulse Ox O2 Del Method 09/30/24 16:33 57 L 24 91 09/30/24 16:24 67 16 129/80 91 09/30/24 16:03 55 L 24 91 09/30/24 16:00 137/81 09/30/24 16:00 137/81 09/30/24 16:00 137/81 09/30/24 16:00 137/81 09/30/24 16:00 137/81 09/30/24 16:00 137/81 09/30/24 15:48 66 19 95 09/30/24 15:36 120/85 09/30/24 15:36 120/85 09/30/24 15:36 120/85 09/30/24 15:36 120/85 09/30/24 15:36 120/85 09/30/24 15:36 69 23 91 09/30/24 15:36 120/85 09/30/24 15:36 120/85 09/30/24 15:33 65 22 90 09/30/24 15:05 Room Air 09/30/24 15:00 92 H 24 91 09/30/24 14:42 76 27 H 91 09/30/24 14:41 69 09/30/24 14:36 156/117 H 09/30/24 14:36 156/117 H 09/30/24 14:36 156/117 H 09/30/24 14:36 156/117 H 09/30/24 14:36 156/117 H 09/30/24 14:36 156/117 H 09/30/24 14:36 156/117 H 09/30/24 14:36 156/117 H 09/30/24 14:36 156/117 H 09/30/24 14:36 156/117 H 09/30/24 14:36 156/117 H 09/30/24 14:36 156/117 H 09/30/24 14:36 156/117 H 09/30/24 14:36 156/117 H 09/30/24 14:36 156/117 H 09/30/24 14:36 156/117 H 09/30/24 14:36 156/117 H 09/30/24 14:36 156/117 H 09/30/24 14:36 156/117 H 09/30/24 14:36 156/117 H 09/30/24 14:36 156/117 H 09/30/24 14:36 156/117 H 09/30/24 13:32 36.8 C 82 18 142/86 H 92 Room Air Laboratory Results Short CBC 09/30/24 Range/Units 15:31 WBC 10.81 H (4.8-10.8) K/ul Hgb 9.9 L (12.0-16.0) g/dl Hct 32.4 L (37.0-47.0) % Plt Count 268 (130-400) K/uL BMP 09/30/24 15:31 Sodium 138 Potassium 4.8 Chloride 104 Carbon Dioxide 27 BUN 26 H Creatinine 1.68 H Glucose 103 H Calcium 9.1 Liver Function 09/30/24 Range/Units 15:31 Total Bilirubin 0.7 (0.2-1.0) mg/dl AST 20 (13-39) U/L ALT 22 (7-52) U/L Alkaline Phosphatase 97 (34-104) U/L Albumin 3.5 (3.4-5.0) gm/dl Urine 09/30/24 Range/Units 14:30 Urine Color Yellow Urine Appearance Cloudy A (Clear) Urine pH 5.5 (4.5-7.5) Ur Specific [place] 1.018 (1.000-1.030) Urine Protein 1+ H (Negative) Urine Glucose (UA) Negative (Negative) Diagnostic Findings Abdomen/Pelvis CT 09/30/24 14:05 CT chest diagnostic wo con, CT abd pelvis wo con CLINICAL HISTORY: 59 years-old Female with SOB. Acute shortness of breath with history of endometrial carcinoma TECHNIQUE: Multiaxial CT images of the chest, abdomen and pelvis were performed without contrast. A dose lowering technique was utilized adhering to the principles of ALARA. COMPARISON: CT lumbar spine same day FINDINGS: CT CHEST: Unremarkable thyroid. Right IJ Upaiwo-a-[id number] catheter distal tip terminates in the inferior SVC. Trace pericardial effusion. No lymphadenopathy. No pneumothorax, pleural effusion or airspace consolidation. Mild bibasilar atelectasis. Calcified granuloma of the left lower lobe. Central airways are patent. Unremarkable soft tissues. No acute fracture or destructive bone lesion. CT ABDOMEN AND PELVIS: No pneumatosis or pneumoperitoneum. Unremarkable spleen, pancreas and adrenal glands. Mildly distended gallbladder. Liver is within normal limits. Unremarkable left kidney. Moderate right-sided hydroureteronep hrosis with dilation of the right ureter extending to the UVJ. No obstructing calculus or lesion identified. Decompressed urinary bladder with wall thickening. Hyperdense focus within the midline lower urinary bladder measures 1.4 cm. Atherosclerosis of the abdominal aorta. No pathologically enlarged lymph nodes. No bowel obstruction. Hysterectomy. Air-filled tract extending vaginal cuff towards the sigmoid colon image 28 series 7. Rectal wall thickening with perirectal stranding. Moderate fecal retention. Marked soft tissues. No acute or destructive bone lesion. IMPRESSION: 1. Moderate right-sided hydroureteronephrosis without obstructing stone or lesion identified. 2. Hyperdense focus within the dependent urinary bladder may represent a stone versus a mucosal lesion. Findings could be correlated with cystoscopy. 3. Prior hysterectomy with colovaginal fistula. 4. Nonspecific wall thickening of the rectum with perirectal stranding may represent a nonspecific proctitis. 5. No bowel obstruction or pneumoperitoneum. 6. No acute intrathoracic abnormality. ACT 112: Negative or not required by law. Electronically signed by: Sathya Gupta M.D. 09/30/2024 3:[address] 09/30/24 14:05 CT chest diagnostic wo con, CT abd pelvis wo con CLINICAL HISTORY: 59 years-old Female with SOB. Acute shortness of breath with history of endometrial carcinoma TECHNIQUE: Multiaxial CT images of the chest, abdomen and pelvis were performed without contrast. A dose lowering technique was utilized adhering to the principles of ALARA. COMPARISON: CT lumbar spine same day FINDINGS: CT CHEST: Unremarkable thyroid. Right IJ Tiseig-r-Wzdl catheter distal tip terminates in the inferior SVC. Trace pericardial effusion. No lymphadenopathy. No pneumothorax, pleural effusion or airspace consolidation. Mild bibasilar atelectasis. Calcified granuloma of the left lower lobe. Central airways are patent. Unremarkable soft tissues. No acute fracture or destructive bone lesion. CT ABDOMEN AND PELVIS: No pneumatosis or pneumoperitoneum. Unremarkable spleen, pancreas and adrenal glands. Mildly distended gallbladder. Liver is within normal limits. Unremarkable left kidney. Moderate right-sided hydroureteronephrosis with dilation of the right ureter extending to the UVJ. No obstructing calculus or lesion identified. Decompressed urinary bladder with wall thickening. Hyperdense focus within the midline lower urinary bladder measures 1.4 cm. Atherosclerosis of the abdominal aorta. No pathologically enlarged lymph nodes. No bowel obstruction. Hysterectomy. Air-filled tract extending vaginal cuff towards the sigmoid colon image 28 series 7. Rectal wall thickening with perirectal stranding. Moderate fecal retention. Marked soft tissues. No acute or destructive bone lesion. IMPRESSION: 1. Moderate right-sided hydroureteronephrosis without obstructing stone or lesion identified. 2. Hyperdense focus within the dependent urinary bladder may represent a stone versus a mucosal lesion. Findings could be correlated with cystoscopy. 3. Prior hysterectomy with colovaginal fistula. 4. Nonspecific wall thickening of the rectum with perirectal stranding may represent a nonspecific proctitis. 5. No bowel obstruction or pneumoperitoneum. 6. No acute intrathoracic abnormality. ACT 112: Negative or not required by law. Electronically signed by: Sathya Gupta M.D. 09/30/2024 3:04 PM Chest X-Ray 09/30/24 14:05 XR chest 1V portable CLINICAL HISTORY: weakness COMPARISON STUDY: Chest CT earlier today FINDINGS: Stable right chest port. Stable mild cardiomegaly without pulmonary vascular congestion. No effusion, consolidation, or pneumothorax. IMPRESSION: No acute findings. ACT 112: Negative or not required by law. Electronically signed by: Kirby Avila M.D. 09/30/2024 3:[address] 09/30/24 14:25 CT lumbar spine wo con CLINICAL HISTORY: endometrial cancer/mass; incontinence COMPARISON STUDY: 07/22/2023. FINDINGS: There is attenuation artifact due to habitus. There is osteopenia. There is moderate degenerative disc disease at L4-5 and L5-S1. There is minimal grade 1 anterolisthesis of L4 on 5. No fracture seen. No severe central canal or neural foraminal narrowing seen. IMPRESSION: 1. No lumbar spine fracture seen. 2. Lower lumbar degenerative changes without severe central canal or neuroforaminal narrowing. ACT 112: Negative or not required by law. Electronically signed by: Kirby Avila M.D. 09/30/2024 2:55 PM Medications Administered Discontinued Medications Piperacillin Sod/Tazobactam Sod (Zosyn) 4.5 gm in 100 mls @ 200 mls/hr IV NOW ONE; Protocol Stop: 09/30/24 16:23 Last Infusion: 09/30/24 16:56 Dose: Infused Documented By: Admin: 09/30/24 16:24 Dose: 200 mls/hr Documented By: USHA Code Status & VTE Plan Code Status FULL CODE Supervising Physician Co-Signing Physician Notes Patient is a 59-year-old female with history of recurrent endometrial cancer, hypothyroidism, CHON intolerant to CPAP, CKD stage III and other medical problems presents with history of generalized weakness, ambulatory dysfunction, abdominal wound with erythema, minimal discharge and intermittent confusion with hallucinations. History also obtained from patient's daughter at bedside. Patient gained about 20 pounds over 1 month duration. Patient has been having urinary and bowel incontinence. Patient also admits to have hematuria. Please review HPI for complete details of presentation. I personally reviewed blood work and imaging studies. Urinalysis suggestive of possible UTI. CT abdomen showed moderate white hydroureteronephrosis, hyperdense focus within urinary bladder suggestive of possible stone versus mucosal lesion, colovaginal fistula, thickening of rectum with perirectal stranding. Physical Exam: Vitals signs as noted above General Appearance: Morbidly obese, no apparent distress Head: normocephalic, Atraumatic Eyes: normal inspection, EOMI Neck: supple, Trachea midline Respiratory/Chest: Normal breath sounds, CTA, No accessory muscle use Cardiovascular: S1, S2, No murmur Abdomen/GI:Soft, Non tender, Bowel sounds present Extremities/Musculoskeletal:normal inspection, nonpitting edema Neurologic/Psych:AAOX3, grossly no focal neurological deficits Skin: normal color, warm,+ abdominal folds with erythema, small wounds, tenderness Obstructive uropathy Hydroureteronephrosis Likely due to malignancy H/O recurrent endometrial cancer Bowel and bladder incontinence Colovaginal fistula Abdominal wall cellulitis/wound/Brigette intertrigo Suspected UTI Chronic anemia CKD stage III Obstructive uropathy likely due to metastatic disease Consulted urology Bladder scan every shift Empirically started on antibiotics Blood cultures obtained 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 I have reviewed the advanced practitioner's documentation on the date of service referred in note and agree with plan. Patient's care is coordinated with Harmony Price PA-C. Please refer to the documentation above for details of patient's presentation and for discussion of other issues. I spent a total [id number] coordinating, documenting, and providing care for this patient excluding time spent in the performance of separately billed services or time spent by another provider/QHP. (9) Fecal incontinence Fecal incontinence type: unspecified Qualified Code(s): R15.9 - Full incontinence of feces
[2024-09-30] MEDS ORDERED: DOCUSATE SODIUM 100 MG CAP PO PRN (18:58)
[2024-09-30] MEDS: GADOBUTROL 65ML VIAL IV ONE (20:25)
[2024-09-30] MEDS ORDERED: ACETAMINOPHEN 325 MG TAB PO PRN (21:11)
[2024-09-30] MEDS ORDERED: POLYETHYLENE (MIRALAX) 17 GM PACK PO PRN (21:11)
[2024-09-30] MEDS ORDERED: MAGNESIUM HYDROXIDE SUSP 30 ML UDC PO PRN (21:11)
[2024-09-30] MEDS: Patient's HEIGHT &/or WEIGHT Needed STA (21:13)
[2024-09-30] MEDS: NORTRIPTYLINE HCL 25 MG CAP PO SCH (22:33)
[2024-09-30] MEDS: rOPINIRole HCL 1 MG TABLET PO SCH (22:34)
[2024-09-30] MEDS: clonazePAM 0.5 MG TAB PO SCH (22:35)
[2024-09-30] MEDS: PIPERACILLIN/TAZOBACTAM 4.5 GM/100 ML BAG IV SCH (22:36)
[2024-09-30] MEDS: MICONAZOLE NITRATE 2% CR 30 GM TUBE EXT SCH (22:36)
[2024-09-30] MEDS: NYSTATIN POWDER 15GM BTL EXT SCH (22:36)
[2024-09-30] MEDS: DOXYCYCLINE HYCLATE 100 MG CAP PO SCH (22:36)
[2024-09-30] MEDS: FLUCONAZOLE 50 MG TAB PO STA (22:45)
--- NOTE | 2024-09-30 23:16 | Magnetic Resonance Report ---
Exam(s): MRI HEAD W/WO Contrast IV Amt: 15 gadavist EXAM: MR Head Without and With Intravenous Contrast CLINICAL HISTORY: Reason for exam: Hallucinations, endometrial CA. TECHNIQUE: Magnetic resonance images of the head/brain without and with intravenous contrast in multiple planes. CONTRAST: Patient received 15 gadavist of IV contrast COMPARISON: No relevant prior studies available. FINDINGS: Brain: There is a tiny acute ischemic injury within the left cerebellum and left frontal lobe without evidence of hemorrhagic transformation possible tiny subacute ischemic injury in the right parietal lobe. Remote ischemic injury of the left cerebellum. There is abnormal leptomeningeal enhancement within the sulci of the left frontal lobe the dural venous sinuses are patent. Minimal nonspecific white matter changes. The flow voids at the base the brain are intact. No mass. No hemorrhage. Ventricles: Unremarkable. No ventriculomegaly. Bones/joints: There is loss of normal T1 bright bone marrow signal within the clivus and proximal cervical spine. No acute fracture. Sinuses: Unremarkable as visualized. No acute sinusitis. Mastoid air cells: Unremarkable as visualized. No mastoid effusion. Orbits: Unremarkable as visualized. IMPRESSION: There are 2 tiny foci of acute ischemic injury within the left cerebellum and left frontal lobe without evidence of hemorrhagic transformation concerning for embolic phenomena. 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 Communications: Verify Receipt Electronically signed by: Jazmyn Byres MD 09/30/24 23:15 PM
[2024-09-30] MEDS ORDERED: PHARMACIST DISCHARGE MED REC CONSULT PRN (23:35)
[2024-10-01] MEDS: ASPIRIN 81 MG CHEW PO STA (00:45)
[2024-10-01] MEDS: HYDROmorphone HCL 2 MG TAB PO PRN (00:45)
--- OUTSIDE RECORDS SUMMARY | 2024-10-01 03:22 | External Medical Summary | Summary of Care ---
Author Name Unknown Organization [facility] Address [address] [place] [address] Phone [phone] Care Team Providers Care Software Designer Name Role Phone Lashawn Mejia MD Primary Care Prov ider Reason for Referral * Evaluate & Treat - Unlimited Visits (Within 10 days (routine)) - Authorized Specialty Diagnoses / Procedures Referred By Radha santana Referred To Contact HOME CARE / Home Care Diagnoses Cancer related pain Endometrial cancer (HCC) Merced Way MD [address] [place] [address] Phone: tel: fax: Referral ID Status Reason Start Date Expiration Date Visits Requested Visits Authorized [id number] Authorized Specialty Services Required 09/29/2024 [id number] Question Answer Referral Priority Within 10 days (routine) Where should this appointment be scheduled? [facility] Comments Documentation of Eizp-pa-Hxlz Encounter Addendum Patient Name: Lissette CARY I certify that this patient is under my care and that I, or a nurse practitioner or physician's assistant tennis professional working with me, had a [id number] encounter that meets the physician qycp-sw-wrlp encounter requirements with this patient on: 09/29/2024 The encounter with the patient was in whole, or in part, for the following medical condition, which is the primary reason for home health care (List medical condition): Wound under abdomen, Endometrial CA, Ambulatory dysfunction I certify that, based on my findings, the following services are medically necessary home health services: Nursing, Physical Therapy, and Wound Care, and bath aide To provide the following care/treatments: (All hospitalists not following the patient after discharge should complete this section): Wound care Eval and tx, PT, OT eval and tx, Nursing assessment Primary Care Physician to follow home care plan of care after discharge: Lashawn Becker MD My clinical findings support the need for the above services because: Pt has recurrent endometrial cancer, worsening functional status, Further, I certify that my clinical findings support that this patient is homebound (i.e. Absences from home require considerable and taxing effort and are for medical reasons or christian services or infrequently or of short duration when for other reason) because: Has worsening ambulatory issues with cancer and pain. Physician Signature: Date of Signature: Physician Printed Name: Merced Way MD Reason for Visit * Reason Comments Consultation Endometrial Cancer * Evaluate & Treat - Unlimited Visits (Within 10 days (routine)) - Authorized Specialty Diagnoses / Procedures Referred By Radha t Referred To Contact Hospice and Palliative Medicine / Palliative Medicine Diagnoses Endometrial cancer (HCC) Flaquita Dumont MD [address] [place] [address] Phone: tel: fax: Referral ID Status Reason Start Date Expiration Date Visits Requested Visits Authorized [id number] Authorized Specialty Services Required 08/17/2024 [id number] Encounter Details Date Type Department Care Team (Late st Contact Info) Description 09/29/2024 9:00 AM EDT Office Visit Palliative Medicine [facility] [address] [place] [address] MD [address] [place] [address] [place] Torres [id number] Cancer related pain*; Constipation due to pain medication; Urge incontinence of urine; Endometrial cancer (HCC) Allergies Active Allergy Reactions Criticality Noted Date Comments Gabapentin Neuro complications (Please comment),Tachycardia 02/06/2023 Hallucinations documented as of this encounter (statuses as of 09/29/2024) Medications Levothyroxine Sodium 200 MCG Oral Tablet (Levoxyl)Indicatio ns:Acquired hypothyroidism Take 1 Tablet by mouth daily first thing in the morning. (at least 30 min prior to breakfast or other meds) 90 Tablet 1 01/01/20 24 Active buPROPion HCl ER (XL) 150 MG Oral Tablet Extended Release 24 Hour (Wellbutrin XL) Take 1 Tablet by mouth in the morning. 30 Tablet 5 04/28/20 24 Active Additional Information Patient not taking.Reported on 09/29/2024 rOPINIRole HCl 3 MG Oral TabletIndications: Restless legs syndrome Take 1 Tablet by mouth in the morning and 1 Tablet at noon and 1 Tablet in the evening and 1 Tablet before bedtime. 120 Tablet 3 08/20/19 25 Active clonazePAM 0.5 MG Oral Tablet (KlonoPIN)Indicati ons:RLS (restless legs syndrome) Take 1-2 tablets per mouth at bedtime. 60 Tablet 2 08/26/19 25 Active Lisinopril 5 MG Oral Tablet (Prinivil)Indicati ons:HTN, goal below 140/90 Take 1 Tablet by mouth in the morning. 90 Tablet 1 08/27/19 25 Active Ondansetron HCl 8 MG Oral Tablet (Zofran)Indication s:Endometrial cancer (HCC) Take 1 Tablet by mouth in the morning. 1 hour prior to administration of oral chemotherapy. 30 Tablet 3 08/30/19 25 Active Prochlorperazine Maleate 10 MG Oral Tablet (Compazine)Indicat ions:Endometrial cancer (HCC) Take 1 Tablet by mouth every 6 hours as needed for Nausea. 30 Tablet 3 08/30/19 25 Active Urea 20 % External Cream (Urea 20 Intensive Hydrating)Indicati ons:Endometrial cancer (HCC) Apply topically to affected area 2 times a day. Apply topically to hands and feet twice daily 228 g 3 08/30/19 25 Active Lenvatinib (20 MG Daily Dose) 2 x 10 MG Oral Capsule Therapy Pack (Lenvima 20 MG Daily Dose)Indications:E ndometrial cancer (HCC) Take 20 mg by mouth in the morning. 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 30 Capsule 5 09/02/19 25 Active oxyBUTYnin Chloride ER 10 MG Oral Tablet Extended Release 24 Hour (Ditropan XL)Indications:Urg e incontinence of urine,Urinary urgency,Nocturia Take 1 Tablet by mouth in the morning. 30 Tablet 11 09/03/19 25 Active oxyCODONE-Acetamin ophen 5-325 MG Oral Tablet (Percocet)Indicati ons:Endometrial cancer (HCC) Take 1 Tablet by mouth every 4 hours as needed for Pain, Moderate. 60 Tablet 09/14/19 25 Active Cefpodoxime Proxetil 200 MG Oral Tablet TAKE ONE TABLET BY MOUTH EVERY TWELVE HOURS FOR SEVEN DAYS 09/21/19 25 Active Clotrimazole 1 % External Cream (Lotrimin) APPLY TO THE AFFECTED AREA(S) TWICE DAILY 09/21/19 25 Active Fluconazole 150 MG Oral Tablet (Diflucan) TAKE ONE TABLET BY MOUTH NOW FOR ONE DOSE 09/21/19 25 Active Nystatin 984545 UNIT/GM External CreamIndications:Y east dermatitis Apply topically to affected area 2 times a day. To affacted area for two weeks. 30 g 2 09/28/19 25 Active Additional Information Patient not taking.Reported on 09/29/2024 Nystatin PowderIndications: Yeast dermatitis Apply to rash under skin folds twice daily 1 Each 3 09/28/19 25 Active Ketoconazole 2 % External Shampoo (Nizoral)Indicatio ns:Yeast dermatitis Apply topically to affected area every 3 days for 28 days. Shampoo twice a week 120 mL 1 09/28/19 25 025 Active fentaNYL 12 MCG/HR Transdermal Patch 72 Hour (Duragesic)Indicat ions:Cancer related pain Place 1 Patch over 72 hours topically on the skin every 3 days. 5 Patch 09/30/19 25 Active Polyethylene Glycol 3350 17 GM Oral Packet (Miralax)Indicatio ns:Constipation due to pain medication Take 1 Packet by mouth in the morning. 14 Each 09/30/19 25 Active Senna 8.6 MG Oral TabletIndications: Constipation due to pain medication Take 1 Tablet by mouth at bedtime. 09/30/19 25 Active HYDROmorphone HCl 2 MG Oral Tablet (Dilaudid)Indicati ons:Cancer related pain Take 1 Tablet by mouth every 4 hours as needed for Pain, Severe. 60 Tablet 09/30/19 25 Active documented as of this encounter (statuses as of 09/29/2024) Active Problems Problem Noted Date Diagnosed Date Encounter for antineoplastic chemotherapy 2023 Vulvar irritation 05/12/2023 Overview (05/12/2023): BIOPSY (05/06/2023) -- BENIGN A. Skin, right vulva, biopsy: Benign mature sebaceous glands with minimal inflammation. Negative for dysplasia and malignancy. Comment: The findings are non-specific, although sebaceous hyperplasia was considered. Clinical correlation is required to determine if the biopsy if inbound sales representative. B. Skin, left vulva, biopsy: Mild perifollicular lymphocytic inflammation with rare eosinophils. Negative for dysplasia and malignancy. Comment: A GMS stain for fungal elements is negative and multiple deeper levels were reviewed. The histologic findings are non-specific. The folliculocentric inflammatory infiltrate could represent folliculitis. There is no definitive evidence of lichen sclerosus. Clinical correlation is required. Class 3 severe obesity due t o excess calories with serious comorbidity and body mass index (BMI) of 50.0 to 59.9 in adult 12/25/2022 Chronic kidney disease, stage 3a 09/16/2022 Overview: Per CKD protocol Endometrial cancer 01/01/2022 Cancer Staging:Clinical stage from 02/19/2022:FIGO Stage IA(cT1a, cN0(sn), cM0) - Signed by Keegan Triplett MD on 02/22/2022 Moderate episode of recurrent major depressive d isorder 09/21/2020 Hypertension goal BP (blood pressure) < 140/90 0 09/21/2020 Prediabetes 01/20/2016 Iron deficiency anemia 02/25/2015 DDD (degenerative disc disease), cervical 2014 Overview (12/17/2014): mild DDD C5-6 and C6-7 CHON (obstructive sleep apnea) 01/03/2012 Overview (01/03/2012): Mild on PSG , AHI 8.0 Severe on PSG 01/2010, AHI 41.0, RDI 41 Urge incontinence of urine 12/05/2011 Dyslipidemia, goal LDL below 100 09/21/2010 Other allergic rhinitis 02/15/2009 Overview (04/29/2017): ICD-10 update of inactive term Restless legs syndrome 02/06/2007 ABN LIVER FUNCTION STUDY 08/22/2004 Persistent insomnia 05/04/2004 Panic disorder 05/06/2003 Anxiety state 05/06/2003 Acquired hypothyroidism 01/12/2003 Pseudotumor cerebri syndrome 03/30/2001 Vitamin B deficiency Vitamin D deficiency Female stress incontinence documented as of this encounter (statuses as of 09/29/2024) Resolved Problems Problem Noted Date Diagnosed Date Resolved Date Class 3 severe obesity in adult 01/01/2022 09/18/2022 Overview (01/01/2022): 51 Obesity, morbid (more than 1 00 lbs over ideal weight or BMI > 40) 08/24/2015 04/10/2017 Overview: Per Obesity protocol #1 Other iron deficiency anemia 03/27/2011 01/04/2013 Overview (04/07/2017): ICD-10 update of inactive term Adult body mass index 50.0-59.9 09/21/2010 01/16/2023 Obesity, morbid (more than 1 00 lbs over ideal weight or BMI > 40) 10/03/2009 09/21/2010 Overview (09/25/2015): Per Obesity Taxonomy ICD-10 update of inactive term EXTRAPYRAMIDAL DIS NEC 09/30/200509/27 Restless leg syndrome 09/30/20052006 ADVANCE DIRECTIVE INFORMATION 06/05/2005 05/10/2024 Overview (06/05/2005): No, Advance Directive brochure given to patient at prior appointment. Morbid obesity, BMI not known 05/04/2004 10/03/2009 Overview (10/03/2009): Per Obesity Taxonomy Obstructive sleep apnea of adult 02/16/2015 documented as of this encounter (statuses as of 09/29/2024) Immunizations Name Administration Dates Next Due Seasonal Influenza Vac., MDV, IM, 0.5 mL (Fluzon e) 05/14/2010 TDAP, Age 7 and older, IM (Adacel) 03/25/2008 documented as of this encounter Social History Tobacco Use Types Packs/Day Years Used Date Smoking Tobacco: Never Smokeless Tobacco: Never Alcohol Use Standard Drinks/Week Comments Yes 0 (1 standard drink = 0.6 oz pur e alcohol) occassional: very intermittent Hunger Vital Sign Answer Date Recorded Within the past 12 months, y ou worried that your food would run out before you got the money to buy more. Never true 04/27/20 24 Within the past 12 months, t he food you bought just didn't last and you didn't have money to get more. Never true 04/27/2024 Childcare Answer Date Recorded Do you feel overwhelmed with taking care of a child, family member or friend? No 04/27/2024 Does your family need help f inding childcare? (Household - for ages 0-17 years) Not on file 04/27/2024 Clothing Answer Date Recorded Have you been unable to get clothing when it was really needed? Yes 04/27/2024 Is your family able to get c lothes or diapers when needed? (Household - for ages 0-17 years) Not on file 04/27/2024 Personal Safety Answer Date Recorded Do you feel unsafe or have concerns for your saf ety? No 04/27/2024 Do you have concerns for you r family's safety? (Household - for ages 0-17 years) Not on file 04/27/2024 Utilities Answer Date Recorded Do you have trouble paying y our heating, water, or electric bill? No 04/27/2024 Is your family able to pay t he heat, water, or electric bill? (Household - for ages 0-17 years) Not on file 04/27/2024 Does your family have access to good internet? (Household - for ages 0-17 years) Not on file 04/27/2024 Employment Status Answer Date Recorded Are you unemployed or without regular income? No 04/27/2024 Does the household have a re lar source of income? (Household - for ages 0-17 years) Not on file 04/27/2024 Social Connections Answer Date Recorded How often do you feel lonely or isolated from those around you? Sometimes 04/27/2024 Financial Resource Strain Answer Date R ecorded Do you have any trouble payi ng for your medications, or do you think you might in the future? No 04/27/2024 Does your family have troubl e paying for medicine? (Household - for ages 0-17 years) Not on file 04/27/2024 Transportation Needs Answer Date Record ed Do you have trouble getting a ride to medical visits or work? (Adult - for ages 18 years and over) Not on file 04/27/2024 Does your family have a hard time getting a ride to doctors visits? (Household - for ages 0-17 years) Not on file 04/27/2024 Has lack of transportation k ept you from medical appointments, meetings, work, or from getting things needed for daily living? Check all that apply. No 04/27/2024 Do you (or your family) have trouble finding or paying for a ride (transportation)? (Household - for ages 0-17 years) Not on file 04/27/2024 Housing Stability Answer Date Recorded Do you currently live in a s helter or have no steady place to sleep at night? No 04/27/2024 Do you think you are at risk of becoming homeless? (Adult - for ages 18 years and over) Not on file 04/27/2024 Does your family worry about paying for your home or becoming homeless? (Household - for ages 0-17 years) Not on file 1 Are you homeless or worried that you might be in the future? No 04/27/2024 Are you (or your family) adriana eless or worried that you might be in the future? (Household - for ages 0-17 years) Not on file Food Insecurity Answer Date Recorded Do you need food for this week? No 04/27/2024 Are you able to get enough f ood for your family? (Household - for ages 0-17 years) Not on file 04/27/2024 Does your family need food t his week? (Household - for ages 0-17 years) Not on file 04/27/2024 Do you always have enough fo od for your family? (Household - for ages 0-17 years) Not on file 04/27/2024 Food Insecurity Answer Date Recorded Within the past 12 months, y ou worried that your food would run out before you got the money to buy more. Never true 04/27/20 24 Within the past 12 months, t he food you bought just didn't last and you didn't have money to get more. Never true 04/27/2024 Do you need food for this week? 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 Not on file Not on file Not on file documented as of this encounter Last Filed Vital Signs Vital Sign Reading Time Taken Comments Blood Pressure 129/85 09/29/2024 8:46 AM EDT Pulse 84 09/29/2024 8:46 AM EDT Temperature 36.8 C (98.3 F) 09/29/2024 8:46 AM ED T Respiratory Rate 16 09/29/2024 8:46 AM EDT Oxygen Saturation 92% 09/29/2024 8:46 AM EDT Inhaled Oxygen Concentration - - Weight - - Height - - Body Mass Index - - documented in this encounter Patient Instructions * Patient Instructions* Deepika Iverson LPN - 09/29/2024 8:45 AM EDT Our Palliative Medicine Clinic is available Friday through Friday during business hours, so we are unavailable on weekends and holidays. Please ensure that you request refills early in the week as itmay take 1-2 days for them to be addressed and filled, for authorizations to be approved, or for the pharmacy to order them if needed. You can contact our office at [phone], which is our clinic in [place], or you can message us on Xeko. If you have an emergency outside of these hours, we recommend calling your primary care clinic, Oncology office, or going to the ER if you have a medical emergency. documented in this encounter Progress Notes * Merced Way MD - 09/29/2024 8:57 AM EDT Images from the original note were not included. Palliative Medicine Outpatient Consult Note [facility] Palliative Medicine Outreach [address] [place] [address] Name: Lissette CARY Date: 09/29/2024 Referring Provider: Flaquita Dumont MD Reason for Consult: Goals of care; Pain and symptom management Patient accompanied by and daughter, history obtained from all 3. HPI: Lissette CARY is a 59 year old female with a primary diagnosis of endometrial cancer, withsuspected spread to the bladder and colon/rectum, as well as depression, significant mal infection, chronic urinary stress incontinence. She was initially diagnosed in 2021, went through surgery,and then later had chemo and thought she was in remission. Follow up CT scans showed a mass had increased in size and is pushing on the bladder. She met with Dr dumont in Aug and plan is to continue Keytruda and oral chemo. Referred to pallitaive care for pain management. Met with family today. They did go get a second opinion in [place], and the team there agreed with her tx plan. She has been struggling with pain, confusion, worsening rash under her breast, and poor appetite. Daughter works at a shelter and wondering about getting more help in the home. She does not have HH or any aides currently. Will be getting an evaluation from [facility] on Friday. Palliative symptoms: Pain: Located at: All over, in pelvis Currently taking: Percocet 5-325 q4h PRN, taking 2x/day, feels that's not helping much Quality: heavy Severity: 01/13 Duration: Constant Timing: Worse with movement Context: Known endometrial mass Modifying factors: nothing improves it, worse with movement Associated sx: cries in pain, emotional over it Nausea/Vomiting: no Appetite: POOR - limited overall - 3 pierogies last night, protein shake - for dinner, had a waffle/shake as well Constipation: just started moving again Confusion: YES - hallucinating - over last 2 weeks - talks to people who aren't there, she's not sure who it is. Grandson goes to visit, she called him by wrong name Sleep issues: YES - napping 45 min at a time, wakes up when wet herself Dyspnea: w/walking Mood issues: Yelling at /daugther a lot, Feels depressed over all the unknown Falls: no Other: Functional Status: - Palliative Performance Scale: 50% - Activities of Daily Living: (bolded items indicate areas of independence) 07/12 BADL (transfer, toilet, continence, bathe, dress self, feed self) 07/13 IADL (meds, transport, telephone, shop, housekeeping, meal prep, money management) - Ambulates: walking w/walker SHx: Family Support: Lives with , daughter Kimberly helps out a lot, grandson also helps Prior employment: [employer] Spiritual practice: Brother is a preacher, doesn't go to baptist Favorite activities: Used to love crafting, going for rides Smoking history: No PHYSICAL EXAMINATION: Constitutional: BP 129/85 (BP Site: Left Arm, BP Position: Sitting, BP Cuff Size: Large) | Pulse 84| Temp 36.8 C (98.3 F) (Tympanic) | Resp 16 | SpO2 92% , no acute distress HENT: normocephalic, atraumatic. Eyes: anicteric, sclera and conjunctiva normal. Neck: no stridor Chest: normal respiratory effort Abdominal: nondistended Extremities: no edema Neuro: alert, oriented to person, place, and time Psych: normal mood and affect Data Review: External notes reviewed: - Reviewed notes from Dr Dumont on 08/30, plan was to f/u in September, continue Venofer tx - Reviewed notes from [facility], Urogyn, she increased her Oxybutynin to 10mg daily Lab / Imaging Results: Cr 1.83, elevated, on 09/19/24 Information obtained from and daughter for collateral history Discussion with other team members: I discussed patient with Oncology team Decision-making Capacity: Does Patient have Decisional Capacity? y Does Patient have a Healthcare Agent? Y, /daughter Discussion with Patient & Family: Met with patient and family Introduced role of Outpatient Palliative Medicine team and reviewed symptoms as above. Reviewed patient's/family's understanding of current medical situation. They are confused about prognosis. Reviewed different levels of in home care, they are open to HH at this time. Introduced hospice care, but she is not eligible at this time. She would like to get a sense of prognosis first. Advanced Care Planning: Deferred ASSESSMENT/PLAN: Lissette CARY is a/an 59 year old female referred for consultation to Palliative Medicine with the primary diagnosis of: Recurrent endometrial CA, s/p hysterectomy, with persistent mass Bilateral hydronephrosis from above mass Cancer related pain Stress urinary incontinence Mal infection Ambulatory dysfunction Goals of care - obtain prognosis, improve function Recommendations: At this time, she is ok with continuing cancer directed therapy. She would however like to get a more clear prognosis if available. Will msg Oncology. For pain, will add fentanyl patch 12.5mcg/hr for long acting pain relief, and Dilaudid 2mg q4h PRN breakthrough pain. Controlled substance agreement reviewed and completed, signed by myself and patient. Copy given to patient and kept in office records. I have reviewed the patients controlled substance dispensing history in the Prescription Drug Monitoring Program in compliance with the [facility] regulations before prescribing a controlled substance. For bowels, Miralax daily and Senna 1-2 tab at night. HH referral today. Will discuss BH/SW referral at next visit. Follow up in 1-2 weeks, nurse call in 1 weeks. Pt is able to do video visits. Next visit with me. Thank you for this consult. We appreciate the opportunity to take part in the care of your patient. Note routed back to referring provider Flaquita Dumont MD and PCP Lashawn Becker MD I spent a total of 61 minutes on the date of service in preparation, delivery, and documentation ofthe care provided to Lissette CARY excluding any time spent in the performance of separately billed services. Merced Way MD [facility] Palliative Medicine [phone] * Selin Brown LPN - 09/29/2024 8:51 AM EDT Patient identifed by name and birthdate Do you have any concerns about pain management for today's visit? Yes. Patient instructed to discuss pain concerns with provider during the visit today Living Will or Advance Directive for Health Care as noted on the problem list. [facility] is a way you can talk to your provider on line through e-mail. Would you like to sign up? I can activate it for you? ALREADY ACTIVE Filed Vitals: 09/29/24 0846 BP: 129/85 Pulse: 84 Resp: 16 Temp: 36.8 C (98.3 F) TempSrc: Tympanic SpO2: 92% Patient was instructed to not get up on the exam table/exam chair until directed and assisted by their provider; patient is to remain seated in the chair/ wheelchair/ exam table/ exam chair for fall prevention and safety reasons. Patient is aware to have assistance to step down off exam table/exam chair with personnel. Patient voiced full comprehension of instructions. documented in this encounter Plan of Treatment Upcoming Encounters Date Type Department Care Team (Late st Contact Info) Description 09/30/2024 8:30 AM EDT Laboratory Laboratory State [facility] Stark [address] [place] [phone] Luis Ponce [address] [place] [phone] 09/30/2024 9:00 AM EDT Office Visit Hematology/Oncology [facility] [address] [phone] Belinda Christianson CRNP [address] [place], [place] [address] [address] 09/30/2024 9:30 AM EDT Hem/Onc Treatment Hematology/Oncology Treatment, [place] [address] [place] [phone] Rosario, Chair [address] Hem On[facility] Scen[facility] [address] [place] [address] 10/01/2024 9:00 AM EDT Scheduled Telephone Palliative Medicine, [facility] [address] [facility] 5th [place] [address] Ct, Nurse Palliative Medicine [facility] 5th [address] [place] [address] 10/06/2024 9:45 AM EDT Pharmacy Pharmacy Hematology Oncology [facility] [address] [place] [address] [facility] [place] Hem/Onc [address] [place] [address] 11/30/2024 9:00 AM EDT Office Visit Sleep Disorders Ctr [facility] [place] [address] [place] [phone] Silvia Holt CRNP [address] [place] [address] 02/09/2025 9:00 AM EDT Office Visit Family Medicine [address] [phone] Lashawn Mejia MD [address] [place] [address] [place] [phone] 03/02/2025 10:40 AM EDT Telemedicine Neurology [facility] [place] [address] [place] [phone] Clif Mckeon MD [address] [place] [address] Scheduled Procedures Name Priority Associated Diagnoses Date/Ti me SIGMOIDOSCOPY FLEXIBLE DIAGNOSTIC Recall Endometrial cancer (HCC) Scheduled Referrals Name Type Priority Associated Diagnoses Orde r Schedule HOME HEALTH REFERRAL OP Referral Within 10 days (routine) Cancer related pain Endometrial cancer (HCC) Ordered: 09/29/2024 Health Maintenance Due Date Last Done Comments COVID-19 Vaccine (#1) 1970 Hepatitis B Vaccine (1 of 3 - 19+ 3-dose series) 01/31/1984 Pneumococcal Vaccine: 50+ Years (1 of 2 - PCV) 01/31/1984 Cologuard 2010 Fecal Occult Blood Test 2010 Sigmoidoscopy 2010 Depression Monitoring 09/12/2016 09/13/2015 DTap/Tdap Vaccines (2 - Td or Tdap) 03/25/2018 03/25/2008 Mammogram 03/02/2021 03/02/2020, 09/04, 09/06/2011, Additional history exists PAP SMEAR-ANNUAL AGES 18-100 12/28/2022 12/28/2021, 12/05/2011, 12/05/2011, Additional history exists Albumin/Creatinine Ratio 12/26/2023 023, 12/14/2020, 10/21/2007 CKD PHOS USE SMARTSET 70962 12/26/20232 07/2022, 01/16/2016, 02/16/2015, Additional history exists HbA1c 12/26/2023 12/25/2022, 07/0 07/2021, 12/14/2020, Additional history exists Influenza Vaccine (FLU shot) (#1) 2024 05/14/2010 GFR 03/22/2025 09/19/2024, 03/0 09/2024, 08/30/2024, Additional history exists TSH 08/30/2025 08/30/2024, 03/07, 02/06/2023, Additional history exists CKD HGB USE SMARTSET 62282 09/19/202509/19, 09/13/2024, 09/13/2024, Additional history exists Lipid Panel 01/04/2027 01/04/2022, 09/04, 06/01/2016, Additional history exists Colonoscopy 07/13/2034 07/13/2024, 01/2025, 07/03/2023, Additional history exists Colorectal Cancer Screening 07/13/2034 Diabetic Eye Exam Discontinued 10/03/2020, , 10/24/2009, Additional history exists HPV (Gardasil) Vaccine Aged Out No lo nger eligible based on patient's age to complete this topic MENINGOCOCCAL (MENACTRA/MENVEO) Aged Out No longer eligible based on patient's age to complete this topic Meningitis B Vaccine (Bexsero/Trumemba) Aged Out No longer eligible based on patient's age to complete this topic Zoster Vaccines Discontinued documented as of this encounter Medical Devices Implanted Type Area Hardware Design Engineer Device Identifier Shelf Expiration Date Model / Serial / Lot Port Implant W8f Poly Cath - [id number] Implanted:Qty : 1 on 09/05/2023 by Orville Zendejas MD at [facility] Right: Chest CR BARD : PERIPHERAL VASCULAR [id number] 06/05/2024 [id number] / / [id number] documented as of this encounter Visit Diagnoses Diagnosis Cancer related pain- Primary Neoplasm related pain (acute) (chronic) Constipation due to pain medication Other constipation Urge incontinence of urine Urge incontinence Endometrial cancer (HCC) Malignant neoplasm of corpus uteri, except isthmus documented in this encounter Advance Directives * Full Code (Latest Code Status on File) Date Activated Date Inactivated Comments 02/19/2022 1:10 PM 02/19/2022 8:22 PM This order r eflects the patients wishes and were consensually agreed upon. Question Answer Comments Discussion of Advance Directives occurred with: Not Discussed Care Teams Software Designer Relationship Specialty Start Date End Date Lashawn Mejia MD [address] [place] [address] [place] [id number] PCP - General Family Medicine 09/22/20 documented as of this encounter"
--- OUTSIDE RECORDS SUMMARY | 2024-10-01 03:22 | External Medical Summary | Summary of Care ---
Author Name Unknown Organization [facility] Address [address] [place] [address] Phone [phone] Care Team Providers Care Help Desk Analyst Name Role Phone Lashawn Mejia MD Primary Care Prov ider Reason for Visit * Reason Comments Acute Encounter Details Date Type Department Care Team (Late st Contact Info) Description 09/27/2024 2:40 PM EDT Office Visit Family Medicine [address] [phone] Lashawn Mejia MD [address] [place] [phone] Acute cystitis with hematuria*; Yeast dermatitis; Moderate episode of recurrent major depressive disorder (HCC); Class 3 severe obesity due to excess calories with serious comorbidity and body mass index (BMI) of 50.0 to 59.9 in adult ([facility]); Chronic kidney disease, stage 3a ([facility]); Endometrial cancer ([facility]); Female stress incontinence; Urge incontinence of urine Allergies Active Allergy Reactions Criticality Noted Date Comments Gabapentin Neuro complications (Please comment),Tachycardia 02/06/2023 Hallucinations documented as of this encounter (statuses as of 09/28/2024) Medications Levothyroxine Sodium 200 MCG Oral Tablet (Levoxyl)Indicati ons:Acquired hypothyroidism Take 1 Tablet by mouth daily first thing in the morning. (at least 30 min prior to breakfast or other meds) 90 Tablet 1 024 Active buPROPion HCl ER (XL) 150 MG Oral Tablet Extended Release 24 Hour (Wellbutrin XL) Take 1 Tablet by mouth in the morning. 30 Tablet 5 024 Active rOPINIRole HCl 3 MG Oral TabletIndications :Restless legs syndrome Take 1 Tablet by mouth in the morning and 1 Tablet at noon and 1 Tablet in the evening and 1 Tablet before bedtime. 120 Tablet 3 025 Active clonazePAM 0.5 MG Oral Tablet (KlonoPIN)Indicat ions:RLS (restless legs syndrome) Take 1-2 tablets per mouth at bedtime. 60 Tablet 2 025 Active Lisinopril 5 MG Oral Tablet (Prinivil)Indicat ions:HTN, goal below 140/90 Take 1 Tablet by mouth in the morning. 90 Tablet 1 025 Active Ondansetron HCl 8 MG Oral Tablet (Zofran)Indicatio ns:Endometrial cancer (HCC) Take 1 Tablet by mouth in the morning. 1 hour prior to administration of oral chemotherapy. 30 Tablet 3 025 Active Prochlorperazine Maleate 10 MG Oral Tablet (Compazine)Indica tions:Endometrial cancer (HCC) Take 1 Tablet by mouth every 6 hours as needed for Nausea. 30 Tablet 025 Active Urea 20 % External Cream (Urea 20 Intensive Hydrating)Indicat ions:Endometrial cancer (HCC) Apply topically to affected area 2 times a day. Apply topically to hands and feet twice daily 228 g 025 Active Lenvatinib (20 MG Daily Dose) 2 x 10 MG Oral Capsule Therapy Pack (Lenvima 20 MG Daily Dose)Indications: Endometrial cancer (HCC) Take 20 mg by mouth in the morning. 60 Each 025 Active Nortriptyline HCl 50 MG Oral Capsule (Pamelor)Indicati ons:Chemotherapy- induced peripheral neuropathy (HCC) Take 1 Capsule by mouth at bedtime. 30 Capsule 5 025 Active oxyBUTYnin Chloride ER 10 MG Oral Tablet Extended Release 24 Hour (Ditropan XL)Indications:Ur ge incontinence of urine,Urinary urgency,Nocturia Take 1 Tablet by mouth in the morning. 30 Tablet 11 025 Active oxyCODONE-Acetami nophen 5-325 MG Oral Tablet (Percocet)Indicat ions:Endometrial cancer (HCC) Take 1 Tablet by mouth every 4 hours as needed for Pain, Moderate. 60 Tablet 025 Active Cefpodoxime Proxetil 200 MG Oral Tablet TAKE ONE TABLET BY MOUTH EVERY TWELVE HOURS FOR SEVEN DAYS 025 Active Clotrimazole 1 % External Cream (Lotrimin) APPLY TO THE AFFECTED AREA(S) TWICE DAILY 025 Active Fluconazole 150 MG Oral Tablet (Diflucan) TAKE ONE TABLET BY MOUTH NOW FOR ONE DOSE 025 Active Nystatin 486415 UNIT/GM External CreamIndications: Yeast dermatitis Apply topically to affected area 2 times a day. To affacted area for two weeks. 30 g 2 025 Active Nystatin PowderIndications :Yeast dermatitis Apply to rash under skin folds twice daily 1 Each 3 025 Active Ketoconazole 2 % External Shampoo (Nizoral)Indicati ons:Yeast dermatitis Apply topically to affected area every 3 days for 28 days. Shampoo twice a week 120 mL 1 025 2024 Active Ondansetron HCl 8 MG Oral TabletIndications :Endometrial cancer (HCC) Take 1 Tablet by mouth every 8 hours as needed for Nausea. 30 Tablet 024 2024 Disconti nued(Pat ient preferen ce/disco ntinuati on) Lidocaine-Priloca ine 2.5-2.5 % External Cream (Emla)Indications :Endometrial cancer (HCC) APPLY TO SKIN OVER MEDIPORT & COVER 1HR PRIOR TO ACCESSING. 30 g 1 024 2024 Disconti nued(Pat ient preferen ce/disco ntinuati on) Hydrocortisone Acetate 25 MG Rectal Suppository (Anusol HC) Administer 1 Suppository into the rectum at bedtime. 12 Suppository 3 025 2024 Disconti nued(Pat ient preferen ce/disco ntinuati on) documented as of this encounter (statuses as of 09/28/2024) Active Problems Problem Noted Date Diagnosed Date Encounter for antineoplastic chemotherapy 2023 Vulvar irritation 05/12/2023 Overview (05/12/2023): BIOPSY (05/06/2023) -- BENIGN A. Skin, right vulva, biopsy: Benign mature sebaceous glands with minimal inflammation. Negative for dysplasia and malignancy. Comment: The findings are non-specific, although sebaceous hyperplasia was considered. Clinical correlation is required to determine if the biopsy if loan servicing representative. B. Skin, left vulva, biopsy: Mild [...] as of this encounter (statuses as of 09/28/2024) Resolved Problems Problem Noted Date Diagnosed Date [...] as of this encounter (statuses as of 09/28/2024) Immunizations Name Administration Dates Next Due Seasonal [...] 04/27/2024 Does the household have a re gular source of income? 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 file Not on file Not on file documented as of this encounter Last Filed Vital Signs Vital Sign Reading Time Taken Comments Blood Pressure 134/78 09/27/2024 2:06 PM EDT Pulse 68 09/27/2024 2:06 PM EDT Temperature 36.2 C (97.1 F) 09/27/2024 2:06 PM ED T Respiratory Rate 16 09/27/2024 2:06 PM EDT Oxygen Saturation - - Inhaled Oxygen Concentration - - Weight 155.1 kg (342 lb) 09/27/2024 2:06 PM EDT Height - - Body Mass Index 60.6 07/13/2024 8:31 AM EST documented in this encounter Progress Notes * Piero Cano, Lashawn Becker MD - 09/27/2024 2:13 PM EDT Images from the original note were not included. Subjective Lissette CHAVEZ is a 59 year old female that presents for Acute History of Present Illness The patient, with a history of endometrial cancer treated with Lenvima, presents for follow-up after a recent ER visit for a skin yeast infection and a urinary tract infection. She reports that the skin infection, located in her skin folds, has not improved despite treatment with oral antifungals and topical creams. She describes the rash as 'disgusting' and 'gross,' and it is causing significant discomfort. She was unaware of the urinary tract infection as she had no symptoms such as dysuria. The patient also reports urinary incontinence, which she finds distressing and embarrassing. She has been prescribed oxybutynin by a urologist, but it has not been effective even after the dose was doubled. She also mentions significant weight gain over the past year and a half, which she believes is contributing to her health issues. She expresses frustration and distress over her declining health and quality of life. Objective BP 134/78 | Pulse 68 | Temp 97.1 F (36.2 C) | Resp 16 | Wt (!) 342 lb (155.1 kg) | BMI 60.60 kg/m | BSA 2.63 m Physical Exam SKIN: Large pendulous breasts and large pannus. Right breast fold with erythematous dermatitis. Pannus fold skin erythematous, consistent with mal infection, with open sores. Skin appears sore and wet. Results Assessment and Plan Assessment & Plan Intertrigo with Mal infection Persistent intertrigo with Mal infection exacerbated by moisture and skin folds. Previous clotrimazole ineffective. Nystatin considered more effective. Significant discomfort and hygiene difficulty. - Prescribe nystatin powder for abdominal skin fold. - Prescribe antifungal cream for under breasts. - Instruct on hygiene: wash daily, dry thoroughly, use business department chair with no heat before powder. - Prescribe antifungal shampoo for body wash in affected areas. - Advise follow-up if no improvement, consider wound clinic referral. Urinary incontinence Chronic stress incontinence exacerbated by obesity and possibly previous C- sections. Previous oxybutynin ineffective. Frequent episodes impact quality of life and contribute to skin issues. Discussedsling procedure feasibility. - Discuss with urogynecologist further management options, including sling procedure. Endometrial cancer Endometrial cancer with suspected spread to bladder and colon/rectum. Currently on Lenvima. Weight gain and mobility issues possibly related to treatment. No association between Lenvima and candidiasis. Discussed prognosis and goals of care with oncology team. - Coordinate with oncology team to clarify prognosis and goals of care. - Discuss potential weight loss options to improve quality of life. Depression Ongoing depression, not under psychiatric care. Significant distress related to health conditions and quality of life. - Encourage discussion of mental health with palliative care team during upcoming appointment. General Health Maintenance Significant weight increase contributing to health issues. Discussed potential benefits of weight loss for overall health improvement. Concerns about invasive procedures due to current health status. - Discuss weight loss options, including medication and less invasive surgical options. Follow-up Overwhelmed with appointments, prefers phone communication for follow-up. - Call after coordinating with healthcare team to discuss overall plan and new information. Wrap-Up I spent a total of 30-39 minutes (exact time 32 mins) on the date of service in preparation, delivery, and documentation of the care provided to Lissette CHAVEZ excluding any time spent in the performance of separately billed services. Text in this note was generated using an ambient documentation service. I discussed the use of a device to record and summarize our discussion today. All persons present during the encounter consented to its use. documented in this encounter Nursing Notes * Mariposa Cuevas RN - 09/27/2024 2:05 PM EDT Pt was in [facility] 09/19/24 for yeast infection in folds of abdomen and under breasts, given cream for this, but it is not helping. Pt was also told she has a UTI, given antibiotic for 7 days, she will finish up today She does not know the name of the medication documented in this encounter Plan of Treatment Upcoming Encounters Date Type Department Care Team (Late st Contact Info) Description 09/29/2024 9:00 AM EDT Office Visit Palliative [facility] [phone] MD [address] [place] [id number] 09/30/2024 8:30 AM EDT Laboratory Laboratory [address] [place] [phone] [facility] Lab [address] [place] [address] 09/30/2024 9:00 AM EDT Office Visit Hematology/Oncology [address] [place] [phone] Belinda Christianson CRNP [address] [place] [address] 09/30/2024 9:30 AM EDT Hem/Onc Treatment Hematology/Oncology Treatment, [place] [address] [place] [address] Rosario, Chair [address] Hem Onc Scenery [address] [facility] [address] 10/06/2024 9:45 AM EDT Pharmacy Pharmacy Hematology Oncology [facility] [address] [place] [address] [facility] Hem/Onc [address] [place] [address] 11/30/2024 9:00 AM EDT [facility] [address] [place] [phone] Silvia Holt CRNP [address] [place] [address] 02/09/2025 9:00 AM EDT Office Visit Family Medicine [address] [phone] Lashawn Mejia MD [address] [place] [address] [place] [phone] 03/02/2025 10:40 AM EDT Telemedicine Neurology [address] [place] [phone] Clif Mckeon MD [address] [place], [place] [phone] Scheduled Procedures Name Priority Associated Diagnoses Date/Ti me SIGMOIDOSCOPY FLEXIBLE DIAGNOSTIC Recall Endometrial cancer (HCC) Health Maintenance Due Date Last Done Comments [...] 023, 12/14/2020, 10/21/2007 CKD PHOS USE SMARTSET 69588 12/26/2023 062 07/2022, 01/16/2016, 02/16/2015, Additional history exists HbA1c 12/26/2023 12/25/2022, 07/0 07/2021, 12/14/2020, Additional history exists Influenza Vaccine (FLU shot) (#1) 2024 05/14/2010 GFR 03/22/2025 09/19/2024, 03/0 09/2024, 08/30/2024, Additional history exists TSH 08/30/2025 08/30/2024, 03/07, 02/06/2023, Additional history exists CKD HGB USE SMARTSET 57042 09/19/202509/19, 09/13/2024, 09/13/2024, Additional history exists Lipid [...] this encounter Medical Devices Implanted Type Area Engineering Technician Parking Device Identifier Shelf Expiration Date Model / Serial / Lot Port Implant W8f Poly Cath - [id number] Implanted:Qty : 1 on 09/05/2023 by Orville Zendejas MD at [facility] Right: Chest CR BARD : PERIPHERAL VASCULAR [id number] 06/05/2024 [id number] / [id number] documented as of this encounter Visit Diagnoses Diagnosis Acute cystitis with hematuria- Primary Acute cystitis Yeast dermatitis Candidiasis of skin and nails Moderate episode of recurrent major depressive disorder (HCC) Class 3 severe obesity due to excess calories with serious comorbidity and body mass index (BMI) of 50.0 to 59.9 in adult (HCC) Chronic kidney disease, stage 3a (HCC) Endometrial cancer (HCC) Malignant neoplasm of corpus uteri, except isthmus Female stress incontinence Urge incontinence of urine Urge incontinence documented in this encounter Advance Directives * Full Code (Latest Code Status on File) Date Activated Date Inactivated Comments 02/19/2022 1:10 PM 02/19/2022 8:22 PM This order r eflects the patients wishes and were consensually agreed upon. Question Answer Comments Discussion of Advance Directives occurred with: Not Discussed Care Teams Help Desk Analyst Relationship Specialty Start Date End Date Lashawn Mejia MD [address] [place] [address] [place] [phone] PCP - General Family Medicine 09/22/20 documented as of this encounter"
--- OUTSIDE RECORDS SUMMARY | 2024-10-01 03:22 | External Medical Summary | Summary of Care ---
Author Name Unknown Organization [facility] Address [address] [place] [address] Phone [phone] Care Team Providers Care Inventory Assistant Name Role Phone Lashawn Mejia MD Primary Care Prov ider Reason for Visit * Reason Comments Outpatient Testing Encounter Details Date Type Department Care Team (Late st Contact Info) Description 09/30/2024 8:30 AM EDT Laboratory Laboratory [facility] [place] [address] [place] [phone] [place], Lab Scenery [address] [place] [address] Anemia due to chronic blood loss; Endometrial cancer (HCC) Allergies Active Allergy Reactions Criticality Noted Date Comments Gabapentin Neuro complications (Please comment),Tachycardia 02/06/2023 Hallucinations documented as of this encounter (statuses as of 09/30/2024) Medications Levothyroxine Sodium 200 MCG Oral Tablet [...] to administration of oral chemotherapy. 30 Tablet 08/30/19 25 Active Prochlorperazine Maleate 10 MG Oral Tablet (Compazine)Indicat ions:Endometrial cancer (HCC) Take 1 Tablet by mouth every 6 hours as needed for Nausea. 30 Tablet 08/30/19 25 Active Urea 20 % External Cream (Urea 20 Intensive Hydrating)Indicati ons:Endometrial cancer (HCC) Apply topically to affected area 2 times a day. Apply topically to hands and feet twice daily 228 g 08/30/19 25 Active Lenvatinib (20 MG Daily Dose) 2 x 10 MG Oral Capsule Therapy Pack (Lenvima 20 MG Daily Dose)Indications:E ndometrial cancer (HCC) Take 20 mg by mouth in the morning. 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 30 Capsule 09/02/19 25 Active oxyBUTYnin Chloride ER 10 [...] TO THE AFFECTED AREA(S) TWICE DAILY 09/21/19 Active Fluconazole 150 MG Oral Tablet (Diflucan) TAKE ONE TABLET BY MOUTH NOW FOR ONE DOSE 09/21/19 Active Nystatin 234650 UNIT/GM External CreamIndications:Y east dermatitis Apply topically to affected area 2 times a day. To affacted area for two weeks. 30 g 2 09/28/19 25 Active Additional Information Patient not taking.Reported on 09/29/2024 Nystatin PowderIndications: Yeast dermatitis Apply to rash under skin folds twice daily 1 Each 3 09/28/19 Active Ketoconazole 2 % External Shampoo (Nizoral)Indicatio [...] as of this encounter (statuses as of 09/30/2024) Active Problems Problem Noted Date Diagnosed Date Encounter for antineoplastic chemotherapy 2023 Vulvar irritation 05/12/2023 Overview (05/12/2023): BIOPSY (05/06/2023) -- BENIGN A. Skin, right vulva, biopsy: Benign mature sebaceous glands with minimal inflammation. Negative for dysplasia and malignancy. Comment: The findings are non-specific, although sebaceous hyperplasia was considered. Clinical correlation is required to determine if the biopsy if business center representative. B. 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 Not on file Not on file documented as of this encounter Plan of Treatment Upcoming Encounters Date Type Department Care Team (Late st Contact Info) Description 09/30/2024 9:00 AM EDT Office Visit Hematology/Oncology [facility] [place] [address] [place] [phone] Belinda Christianson CRNP [address] [place] [address] Arrived 09/30/2024 9:30 AM EDT Hem/Onc Treatment Hematology/Oncology Treatment, [place] [address] [place] [phone] Rosario, Chair 11 Hem Onc Scenery 200 [facility] [place] [address] Arrived 10/01/2024 9:00 AM EDT Scheduled Telephone Palliative Medicine, [facility] [address] [facility] 5th [place] [address] [place], Nurse Palliative Medicine [facility] 5th [facility] [address] 10/06/2024 9:45 AM EDT Pharmacy Pharmacy Hematology Oncology [place] [address] [place] [address] [facility], [facility] Hem/Onc [address] [place] [address] 11/30/2024 9:00 AM EDT Office Visit Sleep Disorders Ctr Jett Belcher [place] [address] [place] [phone] Silvia Holt CRNP [address] [place] [address] 02/09/2025 9:00 AM EDT Office Visit Family Medicine [address] [place] [phone] Lashawn Mejia MD [address] [place] [address] [place] [address] 03/02/2025 10:40 AM EDT Telemedicine Neurology [address] [place] [phone] Clif Mckeon MD [address] [place] [address] Pending Results Name Type Priority Associated Diagnoses Date /Time TSH WITH FREE T4 IF INDICATED Lab STAT Endometrial cancer (HCC) 09/30/2024 8:20 AM EDT COMPREHENSIVE METABOLIC PANEL Lab STAT Endometrial cancer (HCC) 09/30/2024 8:20 AM EDT Scheduled Procedures Name Priority Associated Diagnoses Date/Ti [...] 023, 12/14/2020, 10/21/2007 CKD PHOS USE SMARTSET 32637 12/26/2023 0607/2022, 01/16/2016, 02/16/2015, Additional history exists HbA1c 12/26/2023 12/25/2022, 07/0 07/2021, 12/14/2020, Additional history exists Influenza Vaccine (FLU shot) (#1) 2024 05/14/2010 GFR 03/22/2025 09/19/2024, 030 09/2024, 08/30/2024, Additional history exists TSH 08/30/2025 08/30/2024, 03/07, 02/06/2023, Additional history exists CKD HGB USE SMARTSET 22717 09/30/202509/30, 09/30/2024, 09/19/2024, Additional history exists Lipid Panel 01/04/2027 01/04/2022, [...] this encounter Medical Devices Implanted Type Area Forest And Conservation Worker Device Identifier Shelf Expiration Date Model / Serial / Lot Port Implant W8f Poly Cath - [id number] Implanted:Qty : 1 on 09/05/2023 by Orville Zendejas MD at OR [facility] Right: Chest CR BARD : PERIPHERAL VASCULAR [id number] 06/05/2024 [id number] / / [id number] documented as of this encounter Procedures Procedure Name Priority Date/Time Associated Diagnosis Comments DIFFERENTIAL, AUTOMATED STAT 09/30/2024 8:20 AM EDT Anemia due to chronic blood loss CBC STAT 09/30/2024 8:20 AM EDT Anemia due to chronic blood loss CBC STAT 09/30/2024 8:20 AM EDT Anemia due to chronic blood loss documented in this encounter Results * (ABNORMAL) DIFFERENTIAL, AUTOMATED (09/30/2024 8:20 AM EDT) WBC 13.16(H) 4.00 - 10.80 K/uL 09/30/2024 8:29 AM EDT LAB[facility]ATORY [facility] 56-02 Neutrophils % 85.9(H) 40.0 - 75.0 % 09/30/2024 8:29 AM EDT [facility] [place] 56-02 Lymphocytes % 4.3(L) 18.0 - 42.0 % 09/30/2024 8:29 AM EDT [facility] [place] 56-02 Monocytes % 9.2 1.0 - 11.0 % 09/30/2024 8:29 AM EDT [facility] [place] 56-02 Eosinophils % 0.4 0.0 - 6.0 % 09/30/2024 8:29 AM EDT [facility] 56-02 Basophils % 0.2 0.0 - 2.0 % 09/30/2024 8:29 AM EDT [facility] [place] 56-02 Absolute Neutrophils 11.31(H) 1.80 - 7.70 K/uL 09/30/2024 8:29 AM EDT [facility] 56-02 Absolute Lymphocytes 0.57(L) 1.00 - 4.80 K/ul 09/30/2024 8:29 AM EDT [facility] [place] 56-02 Absolute Monocytes 1.21(H) 0.00 - 1.10 K/uL 09/30/2024 8:29 AM EDT [facility] 56-02 Absolute Eosinophils 0.05 0.00 - 0.70 K/uL 09/30/2024 8:29 AM EDT [facility] [place] 56-02 Absolute Basophils 0.02 0.00 - 0.20 K/uL 09/30/2024 8:29 AM EDT [facility] [place] 56-02 Blood Venous blood specimen / Unknown Venipuncture / Unknown 09/30/2024 8:20 AM EDT 09/30/2024 8:20 AM EDT us Lali MCKEON LAB BLOOD ORDERABLES Nemo l Result [facility] [address] [place], [place] [id number] * (ABNORMAL) CBC (09/30/2024 8:20 AM EDT) WBC 13.16(H) 4.00 - 10.80 K/uL 09/30/2024 8:29 AM EDT [facility] 56 RBC 4.14 3.85 - 5.15 M/uL 09/30/2024 8:29 AM EDT [address] HGB 10.5(L) 12.0 - 15.3 g/dL 09/30/2024 8:29 AM EDT [facility] HCT 34.8(L) 36.0 - 45.2 % 09/30/2024 8:29 AM EDT [facility] 56 MCV 84.1 81.5 - 97.5 fL 09/30/2024 8:29 AM EDT [facility] 56 MCH 25.4 27.0 - 34.0 pg 09/30/2024 8:29 AM EDT [facility] 56 MCHC 30.2 32.0 - 36.0 g/dL 09/30/2024 8:29 AM EDT [facility] 56 RDW 18.8 11.5 - 15.5 % 09/30/2024 8:29 AM EDT [facility] 56 PLT 312 140 - 400 K/uL 09/30/2024 8:29 AM EDT [facility] 56 MPV 8.8 6.6 - 11.1 fL 09/30/2024 8:29 AM EDT [facility] 56 Blood Venous blood specimen / Unknown Venipuncture / Unknown 09/30/2024 8:20 AM EDT 09/30/2024 8:20 AM EDT us Lali MCKEON LAB BLOOD ORDERABLES Nemo l Result [facility] 56-02 [address] [facility] [place] [address] documented in this encounter Visit Diagnoses Diagnosis Anemia due to chronic blood loss Iron deficiency anemia secondary to blood loss (chronic) Endometrial cancer (HCC) Malignant neoplasm of corpus uteri, except isthmus documented in this encounter Advance Directives * Full Code (Latest Code Status on File) Date Activated Date Inactivated Comments 02/19/2022 1:10 PM 02/19/2022 8:22 PM This order r eflects the patients wishes and were consensually agreed upon. Question Answer Comments Discussion of Advance Directives occurred with: Not Discussed Care Teams Inventory Assistant Relationship Specialty Start Date End Date Lashawn Mejia MD [address] [place] [address] [place] [address] PCP - General Family Medicine 09/22/20 documented as of this encounter
--- OUTSIDE RECORDS SUMMARY | 2024-10-01 03:22 | External Medical Summary ---
Author Name Unknown Address Unknown Organization K09:[facility] [place] [address] Laboratory Report Ordering Provider Test Date Status MEÑO QUAN 09/30/2024 08:20:22 Final Observation Date Value Abnormality Reference (Units ) Status SYNC LEUKOCYTES IN BLOOD BY AUTOMATED COUNT 09/30/2024 08:20:22 13.16 Above high normal 4.00-10.80 (K/uL) Final Segs 09/30/2024 08:20:22 85.9 Above high normal 40.0-75.0 (%) Final Lymphs % 09/30/2024 08:20:22 4.3 Below low normal 18.0-42.0 (%) Final Monos 09/30/2024 08:20:22 9.2 1.0-11.0 (%) Final Eosinophils 09/30/2024 08:20:22 0.4 0.0-6.0 (%) Final Basos 09/30/2024 08:20:22 0.2 0.0-2.0 (%) Final Absolute Segs 09/30/2024 08:20:22 11.31 Above high normal 1.80-7.70 (K/uL) Final Lymphs, absolute 09/30/2024 08:20:22 0.57 Below low normal 1.00-4.80 (K/ul) Final Monos, Abs 09/30/2024 08:20:22 1.21 Above high normal 0.00-1.10 (K/uL) Final Eos, Abs 09/30/2024 08:20:22 0.05 0.00-0.70 (K/uL) Final Basos, Abs 09/30/2024 08:20:22 0.02 0.00-0.20 (K/uL) Final Performing Location [facility] [place] [address]
--- OUTSIDE RECORDS SUMMARY | 2024-10-01 03:22 | External Medical Summary | Summary of Care ---
Author Name Unknown Organization [facility] Address [address] [place] [address] Phone [phone] Care Team Providers Care Agency Cashier Name Role Phone Lashawn Mejia MD Primary Care Prov ider Reason for Visit * Reason Onset Date Comments Outpatient Testing 09/30/2024 Her2 Encounter Details Date Type Department Care Team (Late st Contact Info) Description 09/30/2024 Telephone Hematology/Oncology Treatment, [place] [address] [place] [address] Belinda Christianson CRNP [address] [place] [address] Outpatient Testing (Her2) Allergies Active Allergy Reactions Criticality Noted Date [...] Active Additional Information Patient not taking.Reported on 09/30/2024 rOPINIRole HCl 3 MG Oral TabletIndications :Restless legs syndrome Take 1 Tablet by mouth in the morning and 1 Tablet at noon and 1 Tablet in the evening and 1 Tablet before bedtime. 120 Tablet 08/20/19 25 Active clonazePAM 0.5 MG Oral Tablet (KlonoPIN)Indicat ions:RLS (restless legs syndrome) Take 1-2 tablets per mouth at bedtime. 60 Tablet 2 08/26/19 25 Active Lisinopril 5 MG Oral Tablet (Prinivil)Indicat [...] bedtime. 30 Capsule 5 09/02/19 25 Active oxyCODONE-Acetami nophen 5-325 MG Oral Tablet (Percocet)Indicat ions:Endometrial cancer (HCC) Take 1 Tablet by mouth every 4 hours as needed for Pain, Moderate. 60 Tablet 09/14/19 25 Active Additional Information Patient not taking.Reported on 09/30/2024 Cefpodoxime Proxetil 200 MG Oral Tablet TAKE ONE TABLET BY MOUTH EVERY TWELVE HOURS FOR SEVEN DAYS 09/21/19 25 Active Clotrimazole 1 % External Cream (Lotrimin) APPLY TO THE AFFECTED AREA(S) TWICE DAILY 09/21/19 25 Active Fluconazole 150 MG Oral Tablet (Diflucan) TAKE ONE TABLET BY MOUTH NOW FOR ONE DOSE 09/21/19 25 Active Nystatin PowderIndications :Yeast dermatitis Apply to rash under skin folds twice daily 1 Each 3 09/28/19 25 Active Ketoconazole 2 % External Shampoo (Nizoral)Indicati ons:Yeast dermatitis Apply topically to affected area every 3 days for 28 days. Shampoo twice a week 120 mL 1 09/28/19 25 025 Active fentaNYL 12 MCG/HR Transdermal Patch 72 Hour (Duragesic)Indica tions:Cancer related pain Place 1 Patch over 72 hours topically on the skin every 3 days. 5 Patch 09/30/19 25 Active Polyethylene Glycol 3350 17 GM Oral Packet (Miralax)Indicati ons:Constipation due to pain medication Take 1 Packet by mouth in the morning. 14 Each 09/30/19 25 Active Senna 8.6 MG Oral TabletIndications :Constipation due to pain medication Take 1 Tablet by mouth at bedtime. 09/30/19 25 Active HYDROmorphone HCl 2 MG Oral Tablet (Dilaudid)Indicat ions:Cancer related pain Take 1 Tablet by mouth every 4 hours as needed for Pain, Severe. 60 Tablet 09/30/19 25 Active oxyBUTYnin Chloride ER 10 MG Oral Tablet Extended Release 24 Hour (Ditropan XL)Indications:Ur ge incontinence of urine,Urinary urgency,Nocturia Take 1 Tablet by mouth in the morning. 30 Tablet 11 09/03/19 25 025 Disconti nued(Ref ill) documented as of this encounter (statuses as [...] required to determine if the biopsy if outside sales representative. B. 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 Order placed, message sent to pathology. documented in this encounter Plan of Treatment Upcoming Encounters Date Type Department Care Team (Late st Contact Info) Description 10/01/2024 9:00 AM EDT Scheduled Telephone Palliative Medicine, [facility] [address] [facility] 5th [place] [address] [place], Nurse Palliative Medicine [address] [address] 10/06/2024 9:45 AM EDT Pharmacy Pharmacy Hematology Oncology [facility] [address] [place] [address] [facility], [facility] Hem/Onc [address] [place] [address] 11/30/2024 9:00 AM EDT Office Visit Sleep Disorders Ctr [facility] [address] [place] [phone] Silvia Holt CRNP [address] [place] [address] 02/09/2025 9:00 AM EDT Office Visit Family Medicine [address] [place] [phone] Lashawn Mejia MD [address] [place] [address] [place] [address] 03/02/2025 10:40 AM EDT Telemedicine Neurology [address] [place] [phone] Clif Mckeon MD [address] [place] [address] Pending Results Name Type Priority Associated Diagnoses Date /Time ANATOMIC PATHOLOGY (BM/SURGICAL/CYTOLOGY) ADD ON REQUEST Lab Routine Endometrial cancer (HCC) 09/30/2024 10:39 AM EDT Scheduled Procedures Name Priority Associated [...] 023, 12/14/2020, 10/21/2007 CKD PHOS USE SMARTSET 77589 12/26/2023 06/2 07/2022, 01/16/2016, 02/16/2015, Additional history exists HbA1c 12/26/2023 12/25/2022, 07/0 07/2021, 12/14/2020, Additional history exists Influenza Vaccine (FLU shot) (#1) 2024 05/14/2010 GFR 04/02/2025 09/30/2024, 09/04, 09/06/2024, Additional history exists TSH 08/30/2025 08/30/2024, 03/07, 02/06/2023, Additional history exists CKD HGB USE SMARTSET 85200 09/30/202509/30, 09/30/2024, 09/19/2024, Additional history exists Lipid [...] this encounter Medical Devices Implanted Type Area Gore Seamer Device Identifier Shelf Expiration Date Model / Serial / Lot Port Implant W8f Poly Cath - [id number] Implanted:Qty : 1 on 09/05/2023 by Orville Zendejas MD at OR [facility] Right: Chest CR BARD : PERIPHERAL VASCULAR [id number] 06/05/2024 [id number] / / [id number] documented as of this encounter Visit Diagnoses Diagnosis Endometrial cancer (HCC)- Primary Malignant neoplasm of corpus uteri, except isthmus documented in this encounter Advance Directives * Full Code (Latest Code Status on File) Date Activated Date Inactivated Comments 02/19/2022 1:10 PM 02/19/2022 8:22 PM This order r eflects the patients wishes and were consensually agreed upon. Question Answer Comments Discussion of Advance Directives occurred with: Not Discussed Care Teams Agency Cashier Relationship Specialty Start Date End Date Lashawn Mejia MD [address] [place] [address] [place] [address] PCP - General Family Medicine 09/22/20 documented as of this encounter
--- OUTSIDE RECORDS SUMMARY | 2024-10-01 03:22 | External Medical Summary | Summary of Care ---
Author Name Unknown Organization [facility] Address [address] [place] [address] Phone [phone] Care Team Providers Care Dental Internship Name Role Phone Lashawn Mejia MD Primary Care Prov ider Reason for Visit * Reason Onset Date Comments Palliative Care Follow-up 09/29/2024 Encounter Details Date Type Department Care Team (Late st Contact Info) Description 09/29/2024 Telephone Palliative Medicine, [address] 5th [place] [address] MD [address] [place] [address] Palliative Care Follow-up Allergies Active Allergy Reactions Criticality Noted Date [...] needed for Pain, Moderate. 60 Tablet 09/14/19 Active Cefpodoxime Proxetil 200 MG Oral Tablet TAKE ONE TABLET BY MOUTH EVERY TWELVE HOURS FOR SEVEN DAYS 09/21/19 Active Clotrimazole 1 % External Cream (Lotrimin) APPLY TO THE AFFECTED AREA(S) TWICE DAILY 09/21/19 Active Fluconazole 150 MG Oral Tablet (Diflucan) TAKE ONE TABLET BY MOUTH NOW FOR ONE DOSE 09/21/19 Active Nystatin 217851 UNIT/GM External CreamIndications:Y east dermatitis Apply topically [...] required to determine if the biopsy if manufacturers representative. B. Skin, left vulva, biopsy: Mild [...] encounter Miscellaneous Notes * Telephone Encounter - Deepika Iverson LPN - 09/29/2024 1:35 PM EDT Call back from [facility] They do not accept patient's insurance Call to [facility] They do not service patient's area Call to [facility] [phone] They do service patients area and are able to provide all the needs on the referral All info faxed to them at [phone] * Telephone Encounter - Deepika Iverson LPN - 09/29/2024 10:54 AM EDT Call to [facility] [phone] They do service patients area However, unsure if they will be able to provide all disciplines that order is requesting She is asking we fax everything to them, and caddie supervisor will review and let us know either way Referral, notes, insurance info, and demographics faxed to [facility] at [phone] documented in this encounter Plan of Treatment Upcoming Encounters Date Type Department Care Team (Late st Contact Info) Description 09/30/2024 8:30 AM EDT Laboratory Laboratory [facility] [place] [address] [place] [address] [phone] Luis Pnoce [address] [place] [address] 09/30/2024 9:00 AM EDT Office Visit Hematology/Oncology [facility] [place] [address] [place] [phone] Belinda Christianson CRNP [address] [place] [address] 09/30/2024 9:30 AM EDT Hem/Onc Treatment Hematology/Oncology Treatment, [place] [address] [facility] [place] [address] [place], Chair 11 Hem Onc [address] [place] [address] 10/01/2024 9:00 AM EDT Scheduled Telephone Palliative Medicine, [facility] 400 [facility] 5th Floor [place] [address] [place], Nurse Palliative Medicine [facility] 5th [address] [place] [address] 10/06/2024 9:45 AM EDT Pharmacy Pharmacy Hematology Oncology [place] [address] [place] [address] [facility] Hem/Onc [facility] [place] [address] 11/30/2024 9:00 AM EDT Office Visit Sleep Disorders Ctr Jett Belcher [place] [address] [place] [phone] Silvia Holt CRNP [address] [place] [address] 02/09/2025 9:00 AM EDT Office Visit Family Medicine [address] [place] [phone] Lashawn Mejia MD [address] [place] [address] [place] [address] 03/02/2025 10:40 AM EDT Telemedicine Neurology [address] [place] [phone] Clif Mckeon MD [address] [facility] [place] [address] Scheduled Procedures Name Priority Associated Diagnoses Date/Ti [...] 023, 12/14/2020, 10/21/2007 CKD PHOS USE SMARTSET 33933 12/26/2023 06/2 07/2022, 01/16/2016, 02/16/2015, Additional history exists HbA1c 12/26/2023 12/25/2022, 07/0 07/2021, 12/14/2020, Additional history exists Influenza Vaccine (FLU shot) (#1) 2024 05/14/2010 GFR 03/22/2025 09/19/2024, 03/0 09/2024, 08/30/2024, Additional history exists TSH 08/30/2025 08/30/2024, 03/07, 02/06/2023, Additional history exists CKD HGB USE SMARTSET 35361 09/19/202509/19, 09/13/2024, 09/13/2024, Additional history exists Lipid [...] this encounter Medical Devices Implanted Type Area Manager Quality Systems Device Identifier Shelf Expiration Date Model / Serial / Lot Port Implant W8f Poly Cath - [id number] Implanted:Qty : 1 on 09/05/2023 by Orville Zendejas MD at [facility] Right: Chest CR BARD : PERIPHERAL VASCULAR [id number] 06/05/2024 [id number] / / [id number] documented as of this encounter Advance Directives * Full Code (Latest Code Status on File) Date Activated Date Inactivated Comments 02/19/2022 1:10 PM 02/19/2022 8:22 PM This order r eflects the patients wishes and were consensually agreed upon. Question Answer Comments Discussion of Advance Directives occurred with: Not Discussed Care Teams Dental Internship Relationship Specialty Start Date End Date Lashawn Mejia MD [address] [place] [address] [place] [address] PCP - General Family Medicine 09/22/20 documented as of this encounter
--- OUTSIDE RECORDS SUMMARY | 2024-10-01 03:22 | External Medical Summary ---
Author Name Unknown Address Unknown Organization K09:[facility] [address] [place] [address] Laboratory Report Ordering Provider Test Date Status BROCK BURNHAM 09/30/2024 08:20:22 Final Observation Date Value Abnormality Reference (Units ) Status BUN 09/30/2024 08:20:22 27 Above high normal 6-20 (mg/dL) Final Creatinine 09/30/2024 08:20:22 1.8 Above high normal 0.5-1.0 (mg/dL) Final Glomerular filtration rate/1.73 sq M.predicted [Volume Rate/Area] in Serum, Plasma or Blood by Creatinine-based formula (CKD-EPI) 09/30/2024 08:20:22 32 Below low normal >=60 (mL/min) Final eGFR is calculated based on the CKD-EPI 2020 equation. Sodium 09/30/2024 08:20:22 136 135-146 (m mol/L) Final Potassium 09/30/2024 08:20:22 4.6 3.5-5.1 (m mol/L) Final Cl 09/30/2024 08:20:22 100 98-107 (mm ol/L) Final CO2 09/30/2024 08:20:22 24 22-32 (mmo l/L) Final Anion gap 09/30/2024 08:20:22 12 7-15 (mmol /L) Final Glucose 09/30/2024 08:20:22 107 70-120 (mg /dL) Final Albumin 09/30/2024 08:20:22 3.6 Below low normal 3.8 -5.0 (g/dL) Final AST (Aspartate aminotransferase) 09/30/2024 08:20:22 28 10-35 (U/L) Fin al Alk Phos 09/30/2024 08:20:22 126 35-130 (U/ L) Final Bilirubin, Total 09/30/2024 08:20:22 0.6 <=1 .2 (mg/dL) Final Calcium 09/30/2024 08:20:22 9.6 8.4-10.2 ( mg/dL) Final Protein 09/30/2024 08:20:22 7.4 6.0-8.3 (g /dL) Final ALT (Alanine aminotransferase) 09/30/2024 08:20:22 28 10-35 (U/L) Fermin burden Performing Location [facility] [address] [place] [address]
--- OUTSIDE RECORDS SUMMARY | 2024-10-01 03:22 | External Medical Summary | Summary of Care ---
Author Name Unknown Organization [facility] Address [address] [place] [address] Phone [phone] Care Team Providers Care Inspector Bullet Slugs Name Role Phone Lashawn Mejia MD Primary Care Prov ider Reason for Visit * Reason Onset Date Comments Palliative Care Follow-up 09/29/2024 Encounter Details Date Type Department Care Team (Late st Contact Info) Description 09/29/2024 Telephone Palliative Medicine, [address] 5th [place] [address] MD [address] [place] [address] Palliative Care Follow-up Allergies Active Allergy [...] NOW FOR ONE DOSE 09/21/19 Active Nystatin [id number] UNIT/GM External CreamIndications:Y east dermatitis Apply topically [...] required to determine if the biopsy if manufacturer's service representative. B. 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 Not on file Not on file documented as of this encounter Miscellaneous Notes * Telephone Encounter - Deepika Iverson LPN - 09/29/2024 1:35 PM EDT Call back from [facility] They do not accept patient's insurance Call to [facility] They do not service patient's area Call to [facility] [phone] They do service patients area and are able to provide all the needs on the referral All info faxed to them at [phone] * Telephone Encounter - Deepika Iverson LPN - 09/29/2024 10:54 AM EDT Call to [facility] [phone] They do service patients area However, unsure if they will be able to provide all disciplines that order is requesting She is asking we fax everything to them, and supervisor continuous weld pipe mill will review and let us know either way Referral, notes, insurance info, and demographics faxed to [facility] at [phone] documented in this encounter Plan of Treatment Upcoming Encounters Date Type Department Care Team (Late st Contact Info) Description 09/30/2024 8:30 AM EDT Laboratory Laboratory [place] Amy Stark [address] [place] [phone] Luis Ponce [address] [place] [address] 09/30/2024 9:00 AM EDT Office Visit Hematology/Oncology [place] [facility] Stark [address] [phone] Belinda Christianson CRNP [address] [place] [address] 09/30/2024 9:30 AM EDT Hem/Onc Treatment Hematology/Oncology Treatment, [place] [address] [facility] [place] [address] Park, Chair 11 Hem Onc [place] [address] [place] [address] 10/01/2024 9:00 AM EDT Scheduled Telephone Palliative Medicine, [facility] [address] [facility] 5th Floor [place] [address] Sc, Nurse Palliative Medicine [facility] 5th [address] [place] [address] 10/06/2024 9:45 AM EDT Pharmacy Pharmacy Hematology Oncology [place] [address] [place] [address] [facility] Hem/[place]c [place] [address] 11/30/2024 9:00 AM EDT Office Visit Sleep Disorders Ctr Jett Belcher [place] [address] [place] [phone] Silvia Holt CRNP [address] [place] [address] 02/09/2025 9:00 AM EDT Office Visit Family Medicine [address] [place] [phone] Lashawn Mejia MD [address] [place] [address] [place] [address] 03/02/2025 10:40 AM EDT Telemedicine Neurology T[address] [place] [phone] Clif Mckeon MD [address] [facility] [place] [address] Scheduled Procedures Name Priority [...] 023, 12/14/2020, 10/21/2007 CKD PHOS USE SMARTSET 02790 12/26/2023 06/2 07/2022, 01/16/2016, 02/16/2015, Additional history exists HbA1c 12/26/2023 12/25/2022, 07/0 07/2021, 12/14/2020, Additional history exists Influenza Vaccine (FLU shot) (#1) 2024 05/14/2010 GFR 03/22/2025 09/19/2024, 03/0 09/2024, 08/30/2024, Additional history exists TSH 08/30/2025 08/30/2024, 03/07, 02/06/2023, Additional history exists CKD HGB USE SMARTSET 65379 09/19/202509/19, 09/13/2024, 09/13/2024, Additional history exists Lipid [...] this encounter Medical Devices Implanted Type Area [employer] Specialist Device Identifier Shelf Expiration Date Model / Serial / Lot Port Implant W8f Poly Cath - [id number] Implanted:Qty : 1 on 09/05/2023 by Orville Zendejas MD at [facility] Right: Chest CR BARD : PERIPHERAL VASCULAR [id number] 06/05/2024 [id number] / / [id number] documented as of this encounter Advance Directives * Full Code (Latest Code Status on File) Date Activated Date Inactivated Comments 02/19/2022 1:10 PM 02/19/2022 8:22 PM This order r eflects the patients wishes and were consensually agreed upon. Question Answer Comments Discussion of Advance Directives occurred with: Not Discussed Care Teams Inspector Bullet Slugs Relationship Specialty Start Date End Date Lashawn Mejia MD [address] [place] [address] [place] [address] PCP - General Family Medicine 09/22/20 documented as of this encounter
--- OUTSIDE RECORDS SUMMARY | 2024-10-01 03:22 | External Medical Summary ---
Author Name Unknown Address Unknown Organization K09:[facility] [address] Laboratory Report Ordering Provider Test Date Status MEÑO QUAN 09/30/2024 08:20:22 Final Observation Date Value Abnormality Reference (Units ) Status WBC, Total 09/30/2024 08:20:22 13.16 Above high normal 4 .00-10.80 (K/uL) Final RBC 09/30/2024 08:20:22 4.14 3.85-5.15 (M/uL) Final Hemoglobin 09/30/2024 08:20:22 10.5 Below low normal 12 .0-15.3 (g/dL) Final HCT 09/30/2024 08:20:22 34.8 Below low normal 36. 0-45.2 (%) Final MCV 09/30/2024 08:20:22 84.1 81.5-97.5 (fL) Final MCH 09/30/2024 08:20:22 25.4 27.0-34.0 (pg) Final MCHC 09/30/2024 08:20:22 30.2 32.0-36.0 (g/dL) Final RDW 09/30/2024 08:20:22 18.8 11.5-15.5 (%) Final Platelets 09/30/2024 08:20:22 312 140-400 (K /uL) Final MPV 09/30/2024 08:20:22 8.8 6.6-11.1 ( fL) Final Performing Location [facility] [place] [address]
--- OUTSIDE RECORDS SUMMARY | 2024-10-01 03:23 | External Medical Summary | Summary of Care ---
Author Name Unknown Organization [facility] Address [address] [place] [address] Phone [phone] Care Team Providers Care Solid Waste Disposal Manager Name Role Phone Lashawn Mejia MD Primary Care Prov ider Encounter Details Date Type Department Care Team (Late st Contact Info) Description 09/19/2024 Result Scan Unspecified Department <No scans attached> Allergies Active Allergy Reactions Criticality Noted Date Comments Gabapentin Neuro complications (Please comment),Tachycardia 02/06/2023 Hallucinations documented as of this encounter (statuses as of 09/22/2024) Medications Ondansetron HCl 8 MG Oral TabletIndications :Endometrial cancer (HCC) Take 1 Tablet by mouth every 8 hours as needed for Nausea. 30 Tablet Active Additional Information Patient not taking.Reported on 07/13/2024 Lidocaine-Priloca ine 2.5-2.5 % External Cream (Emla)Indications :Endometrial cancer (HCC) APPLY TO SKIN OVER MEDIPORT & COVER 1HR PRIOR TO ACCESSING. 30 g 1 Active Additional Information Patient not taking.Reported on 07/13/2024 Levothyroxine Sodium 200 MCG Oral Tablet (Levoxyl)Indicati ons:Acquired hypothyroidism Take 1 Tablet by mouth daily first thing in the morning. (at least 30 min prior to breakfast or other meds) 90 Tablet 1 Active buPROPion HCl ER (XL) 150 MG Oral Tablet Extended Release 24 Hour (Wellbutrin XL) Take 1 Tablet by mouth in the morning. 30 Tablet 5 024 Active Additional Information Patient not taking.Reported on 07/13/2024 Hydrocortisone Acetate 25 MG Rectal Suppository (Anusol HC) Administer 1 Suppository into the rectum at bedtime. 12 Suppository 3 025 Active Additional Information Patient not taking.Reported on 08/27/2024 rOPINIRole HCl 3 MG Oral TabletIndications :Restless [...] as needed for Nausea. 30 Tablet 3 025 Active Urea 20 % External Cream (Urea 20 Intensive Hydrating)Indicat ions:Endometrial cancer (HCC) Apply topically to affected area 2 times a day. Apply topically to hands and feet twice daily 228 g 3 025 Active Lenvatinib (20 MG Daily Dose) [...] for Pain, Moderate. 60 Tablet 025 Active documented as of this encounter (statuses as of 09/22/2024) Active Problems Problem Noted Date Diagnosed Date Encounter for antineoplastic chemotherapy 2023 Vulvar irritation 05/12/2023 Overview (05/12/2023): BIOPSY (05/06/2023) -- BENIGN A. Skin, right vulva, biopsy: Benign mature sebaceous glands with minimal inflammation. Negative for dysplasia and malignancy. Comment: The findings are non-specific, although sebaceous hyperplasia was considered. Clinical correlation is required to determine if the biopsy if field service representative. B. 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 Not on file documented as of this encounter Plan of Treatment Upcoming Encounters Date Type Department Care Team (Late st Contact Info) Description 09/27/2024 9:45 AM EDT Pharmacy Pharmacy Hematology Oncology [address] [address] Gm, [facility] Hem/Onc [address] [place] [address] 09/29/2024 9:00 AM EDT Office Visit Palliative Medicine [place] [address] [place] [phone] MD [address] [place] [address] [place] [address] 09/30/2024 8:30 AM EDT Laboratory Laboratory [place] [address] [place] [phone] Luis Ponce [place] [address] [place] [address] 09/30/2024 9:00 AM EDT Office Visit Hematology/Oncology [facility] [place] [address] [place] [phone] Belinda Christianson CRNP [address] [place], [place] [phone] 09/30/2024 9:30 AM EDT Hem/Onc Treatment Hematology/Oncology Treatment, [place] [address] [place] [phone] Rosario, Chair 11 Hem Onc [facility] [address] [facility] [place] [address] 11/30/2024 9:00 AM EDT Office Visit Sleep Disorders Ctr [facility] [place] [address] [facility] [place] [phone] Silvia Holt CRNP [address] [place] [facility] [address] 02/09/2025 9:00 AM EDT Office Visit Family [address] [phone] Lashawn Mejia MD [address] [place] [address] [place] [address] 03/02/2025 10:40 AM EDT Telemedicine Neurology [address] [place] [phone] Clif Mckeon MD [address] [facility] [place] [address] Scheduled Procedures Name [...] 023, 12/14/2020, 10/21/2007 CKD PHOS USE SMARTSET 07361 12/26/202312/06, 01/16/2016, 02/16/2015, Additional history exists HbA1c 12/26/2023 12/25/2022, 070 07/2021, 12/14/2020, Additional history exists Influenza Vaccine (FLU shot) (#1) 2024 05/14/2010 GFR 03/22/2025 09/19/2024, 03/0 09/2024, 08/30/2024, Additional history exists TSH 08/30/2025 08/30/2024, 03/07, 02/06/2023, Additional history exists CKD HGB USE SMARTSET 09693 09/19/202509/19, 09/13/2024, 09/13/2024, Additional history exists Lipid [...] this encounter Medical Devices Implanted Type Area [employer] Planter Device Identifier Shelf Expiration Date Model / Serial / Lot Port Implant W8f Poly Cath - [id number] Implanted:Qty : 1 on 09/05/2023 by Orville Zendejas MD at [facility] Right: Chest CR BARD : PERIPHERAL VASCULAR [id number] 06/05/2024 [id number] / / [id number] documented as of this encounter Procedures Procedure Name Priority Date/Time Associated Diagnosis Comments OUTSIDE LAB RESULTS 09/19/2024 documented in this encounter Results * OUTSIDE LAB RESULTS (09/19/2024) 09/19/2024 us No Physician Data Unknown LABORATORY Final Result documented in this encounter Advance Directives * Full Code (Latest Code Status on File) Date Activated Date Inactivated Comments 02/19/2022 1:10 PM 02/19/2022 8:22 PM This order r eflects the patients wishes and were consensually agreed upon. Question Answer Comments Discussion of Advance Directives occurred with: Not Discussed Care Teams Solid Waste Disposal Manager Relationship Specialty Start Date End Date Lashawn Mejia MD [address] [place] [address] [place] [phone] PCP - General Family Medicine 09/22/20 documented as of this encounter
--- OUTSIDE RECORDS SUMMARY | 2024-10-01 03:23 | External Medical Summary | Summary of Care ---
Author Name Unknown Organization [facility] Address [address] [place] [address] Phone [phone] Care Team Providers Care Tank Farm Operator Name Role Phone Lashawn Mejia MD Primary Care Prov ider Reason for Visit * Reason Comments Chemotherapy C1/D1 - Keytruda IV Therapy Venofer 07/10 * Episode Based Medications (Routine) - Authorized Specialty Diagnoses / Procedures Referred By Contac t Referred To Contact Diagnoses Encounter for antineoplastic chemotherapy Endometrial cancer (HCC) Procedures IN INJ PEMBROLIZUMAB Flaquita Wilson MD [address] [place] [phone] Phone: tel: fax: Hematology/Oncology Treatment, [address] [address] Phone: tel: fax: Referral ID Status Reason Start Date Expiration Date V isits Requested Visits Authorized [id number] Authorized 08/19/2024 02/14/[phone] Encounter Details Date Type Department Care Team (Latest Contact Info) Description 08/30/2024 10:00 AM EST Hem/Onc Treatment Hematology/Oncolog y Treatment, [address] [address] Rosario, Chair 2 Hem On[address] [place] [address] Encounter for antineoplastic chemotherapy*; Endometrial cancer (HCC); Iron deficiency anemia due to chronic blood loss Allergies Active Allergy Reactions Criticality Noted Date Comments Gabapentin Neuro complications (Please comment),Tachycardia 02/06/2023 Hallucinations documented as of this encounter (statuses as of 09/15/2024) Medications Ondansetron HCl 8 MG Oral TabletIndications :Endometrial cancer (HCC) Take 1 Tablet by mouth every 8 hours as needed for Nausea. 30 Tablet 08/26/19 24 Active Additional Information Patient not taking.Reported on 07/13/2024 Lidocaine-Priloca ine 2.5-2.5 % External Cream (Emla)Indications :Endometrial cancer (HCC) APPLY TO SKIN OVER MEDIPORT & COVER 1HR PRIOR TO ACCESSING. 30 g 1 09/08/19 24 Active Additional Information Patient not taking.Reported [...] the rectum at bedtime. 12 Suppository 3 07/21/19 25 Active Additional Information Patient not taking.Reported [...] morning. 90 Tablet 1 08/27/19 25 Active Nortriptyline HCl 25 MG Oral Capsule (Pamelor)Indicati ons:Chemotherapy- induced peripheral neuropathy (HCC) Take 1 Capsule by mouth at bedtime. Do not start before May 06, 2024. 30 Capsule 5 05/06/20 24 025 Disconti nued(Med ication/ Dose Changed) oxyBUTYnin Chloride ER 5 MG Oral Tablet Extended Release 24 Hour (Ditropan XL) Take 1 Tablet by mouth in the morning. 30 Tablet 11 07/01/20 24 025 Disconti nued(Med ication/ Dose Changed) oxyCODONE-Acetami nophen 5-325 MG Oral Tablet (Percocet)Indicat ions:Endometrial cancer (HCC) Take 1 Tablet by mouth every 4 hours as needed for Pain, Moderate. 60 Tablet 08/26/19 25 025 Disconti nued(Ref ill) documented as of this encounter (statuses as of 09/15/2024) Active Problems Problem Noted Date Diagnosed Date Encounter for antineoplastic chemotherapy 2023 Vulvar irritation 05/12/2023 Overview (05/12/2023): BIOPSY (05/06/2023) -- BENIGN A. Skin, right vulva, biopsy: Benign mature sebaceous glands with minimal inflammation. Negative for dysplasia and malignancy. Comment: The findings are non-specific, although sebaceous hyperplasia was considered. Clinical correlation is required to determine if the biopsy if sales training representative. B. 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 Not on file Not on file documented as of this encounter Last Filed Vital Signs Vital Sign Reading Time Taken Comments Blood Pressure 115/74 08/30/2024 10:01 AM EST Pulse 90 08/30/2024 10:01 AM EST Temperature 36.4 C (97.6 F) 08/30/2024 10:[address] Respiratory Rate 18 08/30/2024 10:01 AM EST Oxygen Saturation 93% 08/30/2024 10:01 AM EST Inhaled Oxygen Concentration - - Weight 147.4 kg (325 lb) 08/30/2024 10:01 AM EST Height - - Body Mass Index 57.59 07/13/2024 8:31 AM EST documented in this encounter Nursing Notes * Tia Camp RN - 08/30/2024 3:46 PM EST Goals: Patient will remain free from injury. Possible barriers to meeting goals: ambulating with IV pole Stability of the patient: Moderately stable - low risk of patient condition declining or worsening Summary regarding today's goals: Met: pt remained free of harm today Patient tolerated treatment well without any acute issues or problems. Patient left facility in stable condition and denied any further needs. * Tia Camp RN - 08/30/2024 11:36 AM EST Chair 10. Port accessed without difficulty. Blood return noted with second 10 ml NSS flush. Patient presents today for first cycle of Keytruda. Patient was educated about establishing IV access, giving premeds, taking PRN home medications, process of getting medication from pharmacy, layoutof treatment room, use of call krishna, etc. Patient communicated understanding and denied any furtherquestions, concerns, needs. Patient had previously had chemo in the past, then had been coming here for port flushes. Patient here with today. Hgb 8.4 Cr 1.5. Labs reviewed with Dr. Wilson - patient states she has been eating a drinking well, feels she drinksa lot of water daily and meets at least 64 oz daily. Patient on lisinopril but had been on the samedose for several years. Patient does have vaginal bleeding and has noticed more clots coming out lately. Hgb started down trending in the last 4 weeks and 8.4 is lowest it has been. Cr has usually been slightly elevated but more elevated now. Ferritin and iron levels have been checked in the last 4weeks or so - per Dr. Wilson, will order 4 doses of Venofer once per week. Pt to receive 1st Venoferinfusion today while here for Keytruda. Will proceed with Keytruda tx as well today. Will recheck CBCD and BMP with port access before next week's Venofer. Chemotherapy/Immunotherapy agents: KEYTRUDA Consent for chemotherapy drug treatment complete, dated, and signed? yes, date - 08/17/2024 Treatment lab parameters met? Yes Has treatment weight changed > than 10%? No Treatment preauthorized? Yes VITALS Filed Vitals: 08/30/24 1001 BP: 115/74 Pulse: 90 Resp: 18 Temp: 36.4 C (97.6 F) TempSrc: Tympanic SpO2: 93% Weight: (!) 147.4 kg (325 lb) BP Readings from Last 2 Encounters: 08/30/24 115/74 08/17/24 117/80 Pulse Readings from Last 2 Encounters: 08/30/24 90 08/17/24 84 Resp Readings from Last 2 Encounters: 08/30/24 18 08/17/24 16 SpO2 Readings from Last 2 Encounters: 08/30/24 93% 08/17/24 94% Temp Readings from Last 2 Encounters: 08/30/24 36.4 C (97.6 F) (Tympanic) 08/17/24 36.5 C (97.7 F) (Tympanic) Urine protein: N/A Patient education completed for treatment? Yes Blood transfusion consent signed and complete? NA Return appointment scheduled? Yes Patient had provider visit today? No - If no provider visit must complete Pretreatment Assessment Functional Status: Functional status at today's visit: Restricted in physically strenuous activity but ambulatory and able to carry out work on a light orsedentary nature, e.g. light house work, office work The drug name, dose, infusion volume, rate and route of administration, expiration date and time, appearance and physical integrity of the drug and rate set on the pump and sequencing of drug administration (as applicable) were verified by me and second sign-in RN. Patient was assessed for symptoms or adverse side effects during treatment. Patient Education: Patient instructed on use of heat and massage functions where applicable. Patient shown how to operate the heat function of the chair and to alert nursing staff if the chair feels too warm. Patient instructed on the risk of potential cole while using the heat function. PRE-TREATMENT ASSESSMENT: NEURO: numbness or tingling: baseline now from previous chemo tx CV/RESP: denies symptoms GI/: denies symptoms OTHER: denies any additional symptoms PAIN: 0 Safety and Risk for Injury Patient will remain free from injury. Ensure appropriate safety devices are available. Provide and maintain safe environment. documented in this encounter Plan of Treatment Upcoming Encounters Date Type Department Care Team (Late st Contact Info) Description 09/15/2024 7:45 AM EDT Telemedicine Genetics HemOnc, [facility] [address] [facility] [place] [address] Tessa Padilla, [place] [address] [address] 09/16/2024 9:45 AM EDT Pharmacy Pharmacy Hematology Oncology [address] [address] c, [facility] Hem/Onc [address] [place] [address] 09/20/2024 7:50 AM EDT Laboratory Laboratory [facility] [place] [address] [facility] [place] [address] Rosario, Lab [address] [place] [address] 09/20/2024 8:30 AM EDT Office Visit Hematology/Oncology [facility] [place] [address] [facility] [place] [address] Belinda Christianson CRNP 400 [place] [address] 09/20/2024 9:00 AM EDT Hem/Onc Treatment [facility], [place] [facility] [address] Rosario, Chair 6 Hem Onc [address] [place] [address] 09/29/2024 9:00 AM EDT Office Visit Palliative Medicine [facility] [address] [place] [address] MD 400 [facility] [place] [address] 11/30/2024 9:00 AM EDT Office Visit Sleep Disorders Ctr [facility] [address] [place] [phone] Silvia Holt CRNP [address] [place] [address] 02/09/2025 9:00 AM EDT Office Visit Family Medicine [address] [phone] Lashawn Mejia MD [address] [place] [address] 03/02/2025 10:40 AM EDT Telemedicine Neurology [facility] [place] [address] [place] [address] Clif Mckeon MD [address] [place] [address] Scheduled Procedures Name Priority Associated Diagnoses [...] 023, 12/14/2020, 10/21/2007 CKD PHOS USE SMARTSET 31420 12/26/202312/06, 01/16/2016, 02/16/2015, Additional history exists HbA1c 12/26/2023 12/25/2022, 0707/2021, 12/14/2020, Additional history exists Influenza Vaccine (FLU shot) (#1) 2024 05/14/2010 GFR 03/09/2025 09/06/2024, 08/08, 08/17/2024, Additional history exists TSH 08/30/2025 08/30/2024, 03/07, 02/06/2023, Additional history exists CKD HGB USE SMARTSET 96641 09/13/202509/13, 09/13/2024, 09/06/2024, Additional history exists Lipid Panel 01/04/2027 01/04/2022, [...] this encounter Medical Devices Implanted Type Area Neurosurgery Spine Physician Device Identifier Shelf Expiration Date Model / Serial / Lot Port Implant W8f Poly Cath - [id number] Implanted:Qty : 1 on 09/05/2023 by Orville Zendejas MD at [facility] Right: Chest CR BARD : PERIPHERAL VASCULAR [id number] 06/05/2024 [id number] / / [id number] documented as of this encounter Visit Diagnoses Diagnosis Encounter for antineoplastic chemotherapy- Primary Endometrial cancer (HCC) Malignant neoplasm of corpus uteri, except isthmus Iron deficiency anemia due to chronic blood loss Iron deficiency anemia secondary to blood loss (chronic) documented in this encounter Administered Medications Inactive Administered Medications - up to 3 most recent administrations Medication Order MAR Action Action Date Dose Rate Site Iron Sucrose (Venofer) 300 mg in NSS 250 mL ivpb 300 mg, IV Piggyback, ONCE, 1 dose, On Fri08/30/24 at 1245, Administer over 90 MinutesIndications:Endometri al cancer (HCC),Iron deficiency anemia due to chronic blood loss Start Infusion 08/30/2024 11:49 AM EST 300 mg 180 mL/hr NSS infusion Intravenous, at 50 mL/hr, PRN, Starting on Fri08/30/24 at 1130, Until Fri08/30/24 at 2009, Maintenance lineIndications:Encounter for antineoplastic chemotherapy,Endometrial cancer (HCC) Start Infusion 08/30/2024 10:40 AM EST 50 mL/hr Pembrolizumab (Keytruda) 200 mg in NSS 100 mL infusion 200 mg, IV Piggyback, ONCE, 1 dose, On Fri08/30/24 at 1130, Administer over 30 Minutes, Infuse through 0.2 micron filter.Indications:Encounter for antineoplastic chemotherapy,Endometrial cancer (HCC) Start Infusion 08/30/2024 11:14 AM EST 200 mg 226 mL/hr sodium chloride 0.9 % flush/inj 20 mL 20 mL, IV Push, PRN IV Flush and Lock, Starting on Fri08/30/24 at 1021, Until Fri08/30/24 at 2009, Do not flush if lock, PICC, or central line not in place; IV infusing or unable to flush. For midlines and central lines. For IV Flush and Lock, IVAD is flushed with a total of 20 mL Normal Saline, 10 mL of Normal Saline Flush with 10 mL of Normal Saline acting as IV LOCK.Indications:Encounter for antineoplastic chemotherapy,Endometrial cancer (HCC) Given 08/30/2024 1:34 PM EST 20 mL documented in this encounter Advance Directives * Full Code (Latest Code Status on File) Date Activated Date Inactivated Comments 02/19/2022 1:10 PM 02/19/2022 8:22 PM This order reflects the patients wishes and were consensually agreed upon. Question Answer Comments Discussion of Advance Directives occurred with: Not Discussed Care Teams Tank Farm Operator Relationship Specialty Start Date End Date Lashawn Mejia MD [address] [place] [address] [place] [id number] PCP - General Family Medicine 09/22/20 documented as of this encounter
--- OUTSIDE RECORDS SUMMARY | 2024-10-01 03:23 | External Medical Summary | Summary of Care ---
Author Name Unknown Organization [facility] Address [address] [place] [address] Phone [phone] Care Team Providers Care Surveillance Systems Analyst Name Role Phone Lashawn Mejia MD Primary Care Prov ider Encounter Details Date Type Department Care Team (Late st Contact Info) Description 09/20/2024 Orders Only Family Medicine [address] [phone] Lashawn Mejia MD [address] [place] [address] Allergies Active Allergy Reactions Criticality Noted Date Comments Gabapentin Neuro complications (Please comment),Tachycardia 02/06/2023 Hallucinations documented as of this encounter (statuses as of 09/20/2024) Medications Ondansetron HCl 8 MG Oral TabletIndications :Endometrial cancer (HCC) Take 1 Tablet by mouth every 8 hours as needed for Nausea. 30 Tablet 024 Active Additional Information Patient not taking.Reported on 07/13/2024 Lidocaine-Priloca ine 2.5-2.5 % External Cream (Emla)Indications :Endometrial cancer (HCC) APPLY TO SKIN OVER MEDIPORT & COVER 1HR PRIOR TO ACCESSING. 30 g 1 024 Active Additional Information Patient not taking.Reported [...] mouth in the morning. 60 Each 5 025 Active Nortriptyline HCl 50 MG Oral [...] as of this encounter (statuses as of 09/20/2024) Active Problems Problem Noted Date Diagnosed Date Encounter for antineoplastic chemotherapy 2023 Vulvar irritation 05/12/2023 Overview (05/12/2023): BIOPSY (05/06/2023) -- BENIGN A. Skin, right vulva, biopsy: Benign mature sebaceous glands with minimal inflammation. Negative for dysplasia and malignancy. Comment: The findings are non-specific, although sebaceous hyperplasia was considered. Clinical correlation is required to determine if the biopsy if enrollment representative. B. 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 Not on file documented as of this encounter Plan of Treatment Upcoming Encounters Date Type Department Care Team (Late st Contact Info) Description 09/27/2024 9:45 AM EDT Pharmacy Pharmacy Hematology Oncology [place] [address] [place] [address] [facility], [facility] Hem/Onc [address] [place] [address] 09/29/2024 9:00 AM EDT Office Visit Palliative Medicine [facility] [address] [place] [address] MD [address] [place] [address] [place] [address] 09/30/2024 8:30 AM EDT Laboratory Laboratory [facility] [address] [place] [address] Rosario, Lab [facility] 200 [facility] [place] [address] 09/30/2024 9:00 AM EDT Office Visit Hematology/Oncology [facility] [address] [place] [phone] Belinda Christianson CRNP 400 [facility] [place] [phone] 09/30/2024 9:30 AM EDT Hem/Onc Treatment [facility]ematology[facility] [address] Rosario, Chair 11 Hem Onc [facility] 200 [facility] [place] [address] 11/30/2024 9:00 AM EDT Office Visit [facility] [phone] Silvia Holt CRNP 132 [facility] [place] [address] 02/09/2025 9:00 AM EDT Office Visit Family [address] [phone] Lashawn Mejia MD [address] [place] [address] [place] [address] 03/02/2025 10:40 AM EDT Telemedicine Neurology [address] [place], [place] [address] Clif Mckeon MD [address] [facility] [place] [id number] Scheduled Procedures Name Priority Associated Diagnoses Date/Ti [...] 023, 12/14/2020, 10/21/2007 CKD PHOS USE SMARTSET 87592 12/26/2023 06/2 07/2022, 01/16/2016, 02/16/2015, Additional history exists HbA1c 12/26/2023 12/25/2022, 07/0 07/2021, 12/14/2020, Additional history exists Influenza Vaccine (FLU shot) (#1) 2024 05/14/2010 GFR 03/22/2025 09/19/2024, 03/0 09/2024, 08/30/2024, Additional history exists TSH 08/30/2025 08/30/2024, 03/07, 02/06/2023, Additional history exists CKD HGB USE SMARTSET 71168 09/19/202509/19, 09/13/2024, 09/13/2024, Additional history exists Lipid Panel 01/04/2027 01/04/2022, 09/04, 06/01/2016, Additional history exists Colonoscopy 07/13/2034 07/13/2024, 01/0 01/2025, 07/03/2023, Additional history exists Colorectal Cancer [...] this encounter Medical Devices Implanted Type Area Tin Flipper Device Identifier Shelf Expiration Date Model / Serial / Lot Port Implant W8f Poly Cath - [id number] Implanted:Qty : 1 on 09/05/2023 by Orville Zendejas MD at [facility] Right: Chest CR BARD : PERIPHERAL VASCULAR [id number] 06/05/2024 [id number] / / [id number] documented as of this encounter Procedures Procedure Name Priority Date/Time Associated Diagnosis Comments CHEMISTRY-OUTSIDE Routine 09/19/2024 documented in this encounter Results * (ABNORMAL) CHEMISTRY-OUTSIDE (09/19/2024) Not all results display below - see scan for full detail OUTSIDE LAB (SEE SCANNED REPORT) Comment:SEE SCAN - CBC, UA, CMP CREATININE 1.83(A) 0.55 - 1.02 MG/DL OUTSIDE LAB (SEE SCANNED REPORT) EGFR 31 ML/MIN OUTSIDE LA B (SEE SCANNED REPORT) POTASSIUM 4.3 3.5 - 5.1 MMOL/L OUTSIDE LAB (SEE SCANNED REPORT) GLUCOSE 104 70 - 110 MG/DL OUTSIDE LAB (SEE SCANNED REPORT) HOURS FASTING OUTSID E LAB (SEE SCANNED REPORT) TRIGLYCERIDES-OUT SIDE LAB OUTSIDE LAB (SEE SCANNED REPORT) CHOLESTEROL-OUTSI DE LAB OUTSIDE LAB (SEE SCANNED REPORT) HDL-OUTSIDE LAB OUTS AMY LAB (SEE SCANNED REPORT) CHOL/HDL RATIO-OUTSIDE LAB OUTSIDE LA B (SEE SCANNED REPORT) LDL (CALCULATED)-OUTS AMY LAB OUTSIDE LAB (SEE SCANNED REPORT) LDL (DIRECT MEASURE)-OUTSIDE LAB OUTSIDE LAB (SEE SCANNED REPORT) HEMOGLOBIN, D5L-YPXDAEE LAB OUTSIDE LAB (SEE SCANNED REPORT) PHOSPHORUS-OUTSID E LAB OUTSIDE LAB (SEE SCANNED REPORT) PTH-OUTSIDE LAB OUTS AMY LAB (SEE SCANNED REPORT) MICROALBUMIN RATIO-OUTSIDE LAB OUTSIDE LA B (SEE SCANNED REPORT) PROTEIN, UA-OUTSIDE LAB OUTSIDE LAB (SEE SCANNED REPORT) HGB 9.4(A) 12.0 - 16.0 G/DL OUTSIDE LAB (SEE SCANNED REPORT) 09/19/2024 us History Per Patient LABORATORY Final Result OUTSIDE LAB (SEE SCANNED REPORT) documented in this encounter Advance Directives * Full Code (Latest Code Status on File) Date Activated Date Inactivated Comments 02/19/2022 1:10 PM 02/19/2022 8:22 PM This order r eflects the patients wishes and were consensually agreed upon. Question Answer Comments Discussion of Advance Directives occurred with: Not Discussed Care Teams Surveillance Systems Analyst Relationship Specialty Start Date End Date Lashawn Mejia MD [address] [place] [address] [place] [phone] PCP - General Family Medicine 09/22/20 documented as of this encounter
--- OUTSIDE RECORDS SUMMARY | 2024-10-01 03:23 | External Medical Summary | Summary of Care ---
Author Name Unknown Organization [facility] Address [address] [place] [address] Phone [phone] Care Team Providers Care Telephone Installer Name Role Phone Lashawn Mejia MD Primary Care Prov ider Encounter Details Date Type Department Care Team (Late st Contact Info) Description 09/21/2024 Orders Only Hematology/Oncology [facility] [place] [address] [place] [phone] Flaquita Wilson MD [address] [place] [address] Allergies Active Allergy Reactions Criticality Noted Date Comments Gabapentin Neuro complications (Please comment),Tachycardia 02/06/2023 Hallucinations documented as of this encounter (statuses as of 09/21/2024) Medications Ondansetron HCl 8 MG Oral TabletIndications [...] as of this encounter (statuses as of 09/21/2024) Active Problems Problem Noted Date Diagnosed Date Encounter for antineoplastic chemotherapy 2023 Vulvar irritation 05/12/2023 Overview (05/12/2023): BIOPSY (05/06/2023) -- BENIGN A. Skin, right vulva, biopsy: Benign mature sebaceous glands with minimal inflammation. Negative for dysplasia and malignancy. Comment: The findings are non-specific, although sebaceous hyperplasia was considered. Clinical correlation is required to determine if the biopsy if sales representative printing. B. 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 Not on file documented as of this encounter Plan of Treatment Upcoming Encounters Date Type Department Care Team (Late st Contact Info) Description 09/27/2024 9:45 AM EDT Pharmacy Pharmacy Hematology Oncology [place] [address] [place] [address] Gm, [facility] Hem/Onc [address] [place] [address] 09/29/2024 9:00 AM EDT Office Visit Palliative Medicine [facility] [address] [place] [address] MD [address] [place] [address] [place] [address] 09/30/2024 8:30 AM EDT Laboratory Laboratory [facility] [address] [place] [address] Rosario, Lab Scenery 200 [facility] [place] [address] 09/30/2024 9:00 AM EDT Office Visit Hematology/Oncology [facility] [address] [facility] [phone] Belinda Christianson CRNP 400 [facility] [place] [phone] 09/30/2024 9:30 AM EDT Hem/Onc Treatment Hematology/Oncology [facility] 200 [place] [address] Rosario, Chair 11 Hem Onc [facility] 200 [facility] [place] [phone] 11/30/2024 9:00 AM EDT Office Visit [facility] Disorders Ctr [facility] [place] [facility] [phone] Silvia Holt CRNP 132 [facility] [address] 02/09/2025 9:00 AM EDT Office Visit Family Medicine [address] [phone] Lashawn Mejia MD [address] [place] [address] [place] [address] 03/02/2025 10:40 AM EDT Telemedicine Neurology [address] [place] [phone] Clif Mckeon MD 100 [address] [facility] [place] [address] Scheduled Procedures Name Priority Associated Diagnoses Date/Ti [...] 023, 12/14/2020, 10/21/2007 CKD PHOS USE SMARTSET 22706 12/26/2023 06/2 07/2022, 01/16/2016, 02/16/2015, Additional history exists HbA1c 12/26/2023 12/25/2022, 07/0 07/2021, 12/14/2020, Additional history exists Influenza Vaccine (FLU shot) (#1) 2024 05/14/2010 GFR 03/22/2025 09/19/2024, 03/0 09/2024, 08/30/2024, Additional history exists TSH 08/30/2025 08/30/2024, 03/07, 02/06/2023, Additional history exists CKD HGB USE SMARTSET 35161 09/19/202509/19, 09/13/2024, 09/13/2024, Additional history exists Lipid [...] this encounter Medical Devices Implanted Type Area Polygraph Examiner Device Identifier Shelf Expiration Date Model / Serial / Lot Port Implant W8f Poly Cath - [id number] Implanted:Qty : 1 on 09/05/2023 by Orville Zendejas MD at [facility] Right: Chest CR BARD : PERIPHERAL VASCULAR [id number] 06/05/2024 [id number] / / [id number] documented as of this encounter Advance Directives * Full Code (Latest Code Status on File) Date Activated Date Inactivated Comments 02/19/2022 1:10 PM 02/19/2022 8:22 PM This order r eflects the patients wishes and were consensually agreed upon. Question Answer Comments Discussion of Advance Directives occurred with: Not Discussed Care Teams Telephone Installer Relationship Specialty Start Date End Date Lashawn Mejia MD [address] [place] [address] [place] [address] PCP - General Family Medicine 09/22/20 documented as of this encounter
--- OUTSIDE RECORDS SUMMARY | 2024-10-01 03:23 | External Medical Summary | Summary of Care ---
Author Name Unknown Organization [facility] Address [address] [place] [address] Phone [phone] Care Team Providers Care Payroll Machine Operator Name Role Phone Lashawn Mejia MD Primary Care Prov ider Reason for Visit * Reason Comments Medication Management Encounter Details Date Type Department Care Team (Late st Contact Info) Description 09/16/2024 9:45 AM EDT Pharmacy Pharmacy Hematology Oncology [facility] [address] [place] [address] [facility], [facility] Hem/Onc [address] [place] [address] Endometrial cancer (HCC)* Allergies Active Allergy Reactions Criticality Noted Date Comments Gabapentin Neuro complications (Please comment),Tachycardia 02/06/2023 Hallucinations documented as of this encounter (statuses as of 09/16/2024) Medications Ondansetron HCl 8 MG Oral TabletIndications [...] as of this encounter (statuses as of 09/16/2024) Active Problems Problem Noted Date Diagnosed Date Encounter for antineoplastic chemotherapy 2023 Vulvar irritation 05/12/2023 Overview (05/12/2023): BIOPSY (05/06/2023) -- BENIGN A. Skin, right vulva, biopsy: Benign mature sebaceous glands with minimal inflammation. Negative for dysplasia and malignancy. Comment: The findings are non-specific, although sebaceous hyperplasia was considered. Clinical correlation is required to determine if the biopsy if renewals representative. B. Skin, left vulva, biopsy: Mild [...] as of this encounter (statuses as of 09/16/2024) Resolved Problems Problem Noted Date Diagnosed Date [...] as of this encounter (statuses as of 09/16/2024) Immunizations Name Administration Dates Next Due Seasonal [...] money to buy more. Never true 04/27/20 Within the past 12 months, t he [...] on file documented as of this encounter Progress Notes * Dinorah Garcia, [place] [facility] - 09/16/2024 2:42 PM EDT MEDICATION THERAPY MANAGEMENT LENVATINIB TREATMENT PROGRESS NOTE Lissette CARY [id number] Patient Phone Numbers [employer] [phone] Preferred Lab: [facility] or [facility] Specialty Pharmacy: [facility] Specialty Communication: Spoke to: Patient Treatment: Medication: Lenvatinib (Lenvima) Indication/Staging/Diagnosis Code: endometrial cancer / C54.1 Dose: 20mg daily Administration: +/- food Start Date: 09/13/24 Primary Assistant Portfolio Manager/Oncologist: Dr. Steve Additional Therapy: Pembrolizumab - started 08/30/24 Supportive Care Meds: Ondansetron Prochlorperazine Prophylactic Meds: Urea cream Relevant Chronic Medications: Category Medications Pertinent Notes Antihypertensives Lisinopril 5mg daily Per PCP Thyroid Levothyroxine 200mcg daily Per PCP Treatment History: 2021: ARISTEO and BSO 09/2023-03/2024: Paclitaxel/Carboplatin/RT Treatment Dose Adjustment/Hold History: N/A Interval History: Confirms start date as above Reports decreased BP since starting treatment. States lowest value 112/70. States HR increases on occasion Confirms applying urea cream and denies HFS Reports constipation resolved with docusate Confirms taking ondansetron before lenvatinib. Reports breakthrough nausea but denies additional antiemetic use. States she has decreased appetite due to nausea Reports increased urination/urgency and bladder incontinence Per MyG 09/15/24, pt to complete urinalysis If negative will increase oxybutinin ER to 15mg daily Continues to endorse rash under breasts resolved with Neosporin or A&D ointment No other concerns Changes to medication list since last visit? No Drug interaction assessment: Treatment plan and current medication list evaluated for drug-drug interactions. No clinically significant drug interaction identified Assessment and Plan: Advised pt to continue BP monitoring and contact PCP if BP < 100/60 or elevated HR accompanied by dizziness. Pt states she will keep log and discuss at upcoming OV Continue urea cream for HFS ppx Re-educated pt on ondansetron-induced constipation. Advised pt to change morning antiemetic to prochlorperazine and use ondansetron if needed for breakthrough nausea Advised pt it is not good to have unintended weight loss due to nausea and important to take something for breakthrough nausea Advised pt to continue docusate as needed for constipation Pt replied with understanding Advised pt bladder incontinence unreported side effect of lenvatinib. Encouraged pt to complete UA and follow up with PCP Continue current treatment for rash under breasts Continue current treatment Repeat labs with OV Assessment of compliance: compliant Assessment of adverse effects attributed to drug therapy: HTN - absent Edema- absent Hand-foot syndrome - absent Diarrhea -absent Nausea/Vomiting - present Stomatitis - absent Dose adjustment needed based on lab or adverse drug reaction? No Follow up: 09/20 OV/labs; 09/27 MTM Dinorah Garcia, PharmD, BCOP Clinical Pharmacist, [facility] Oral Chemotherapy [facility] 09/16/2024, 3:17 PM Monitoring Parameters: Estimated CrCl Serum creatinine: 1.4 mg/dL (H) 09/06/24 1438 Estimated creatinine clearance: 61.7 mL/min (A) Hepatitis panel Latest Reference Range & Units 08/27/23 13:52 Hepatitis B Surface Antigen Negative Negative Hepatitis B Surface Antibody, Quantitative mIU/mL <3.5 HEPATITIS B SURFACE ANTIBODY Rpt Hepatitis B Surface Antibody, Interpretation NOT immune to Hepatitis B Virus Hepatitis B Surface Antibody, Qualitative Negative Hepatitis B Core Antibodies IgG and IgM Negative Negative test N/A - ARISTEO and BSO 2021 Suggested lab monitoring Suggested lab monitoring: LFTs baseline, q2wk x 2mo, then qmo; TSH/BMP/renal fxn (including Ca) qmo; Proteinuria baseline, then q3- 4mo; BP baseline, 1 week of initiation, q2wk x 2 mo, then qmo; EKG (in patients with congenital long QTc, CHF, bradyarrhythmias, or concurrent QT prolonging meds) BP Readings from Last 3 Encounters: 09/13/24 116/78 09/06/24 112/76 08/30/24 115/74 Date QTc 01/10/23 334 ms Date LVEF 09/29/20 55% Treatment Parameters Pertinent labs: N/A Time Spent on Encounter: 21 - 25 minutes Encounter Group: Oncology Encounter Interventions Item Category: Oral Chemotherapy Lenvatinib Problem/Rationale: Safety: Needs additional monitoring - Medication Requires monitoring Pharmacist Intervention(s): Non-pharmacological intervention provided and Toxicity monitoring Magnitude of Intervention: Monitoring with direction (Level 1) Second Item Second Item Category: Topicals Urea Problem/Rationale: Effectiveness: Needs additional monitoring - Medication Requires monitoring Pharmacist Intervention(s): Toxicity monitoring Magnitude of Intervention: Monitoring with direction (Level 1) Third Item Third Item Category: Anti-Emetic Ondansetron Problem/Rationale: Safety: Adverse medication event - Undesirable effect Pharmacist Intervention(s): Medication held and Toxicity monitoring Magnitude of Intervention: Modification of medications for symtomatic patients (Level 3) Fourth Item Fourth Item Category: Anti-Emetic Prochlorperazine Problem/Rationale: Indication: Needs additional medication therapy - Untreated condition Education: Re-education Pharmacist Intervention(s): Education provided, Medication resumed, and Toxicity monitoring Magnitude of Intervention: Modification of medications for symtomatic patients (Level 3) documented in this encounter Plan of Treatment Upcoming Encounters Date Type Department Care Team (Late st Contact Info) Description 09/20/2024 7:50 AM EDT Laboratory Laboratory [facility] 200 [facility] [place] [facility] [place] [phone] Rosario Lab [facility] 200 [facility] [place] [address] 09/20/2024 8:30 AM EDT Office Visit Hematology/Oncology [facility] [place] 200 [facility] [place] [phone] Belinda Christianson CRNP [facility] [place] [address] 09/20/2024 9:00 AM EDT Hem/Onc Treatment Hematology/[facility]cology Treatment, [place] 200 [facility] [phone] Rosario, Chair 6 Hem On[address] [place] [phone] 09/27/2024 9:45 AM EDT Pharmacy Pharmacy Hematology Oncology [place] [address] [place] [address] [facility], [facility] Hem/Onc [address] [place] [address] 09/29/2024 9:00 AM EDT Office Visit Palliative Medicine [facility] [place] [facility] [phone] MD 400 [facility] [place] [address] 11/30/2024 9:00 AM EDT Office Visit Sleep Disorders Ctr Jett Belcher [place] 132 [facility] [place] [phone] Silvia Holt CRNP [address] [place] [address] 02/09/2025 9:00 AM EDT Office Visit Family Medicine [address] [place] [phone] Lashawn Mejia MD [address] [place] [address] [place] [address] 03/02/2025 10:40 AM EDT Telemedicine Neurology [place] [place] [address] [place] [phone] Clif Mckeon MD 100 N [facility] [place] [address] Scheduled Procedures [...] 023, 12/14/2020, 10/21/2007 CKD PHOS USE SMARTSET 61803 12/26/2023 06/2 07/2022, 01/16/2016, 02/16/2015, Additional history exists HbA1c 12/26/2023 12/25/2022, 07/2, 12/14/2020, Additional history exists Influenza Vaccine (FLU shot) (#1) 2024 05/14/2010 GFR 03/09/2025 09/06/2024, 08/08, 08/17/2024, Additional history exists TSH 08/30/2025 08/30/2024, 03/07, 02/06/2023, Additional history exists CKD HGB USE SMARTSET 33146 09/13/202509/13, 09/13/2024, 09/06/2024, Additional history exists Lipid [...] this encounter Medical Devices Implanted Type Area Motor Generator Set Operator Device Identifier Shelf Expiration Date Model / Serial / Lot Port Implant W8f Poly Cath - [id number] Implanted:Qty : 1 on 09/05/2023 by Orville Zendejas MD at [facility] Right: Chest CR BARD : PERIPHERAL VASCULAR [id number] 06/05/2024 [id number] / / [id number] documented as of this encounter Visit Diagnoses [...] Directives occurred with: Not Discussed Care Teams Payroll Machine Operator Relationship Specialty Start Date End Date Lashawn Mejia MD [address] [place] [address] [place] [phone] PCP - General Family Medicine 09/22/20 documented as of this encounter
--- OUTSIDE RECORDS SUMMARY | 2024-10-01 03:24 | External Medical Summary | Summary of Care ---
Author Name Unknown Organization [facility] Address [address] [place] [address] Phone [phone] Care Team Providers Care [employer] Sales Consultant Name Role Phone Lashawn Mejia MD Primary Care Prov ider Encounter Details Date Type Department Care Team (Late st Contact Info) Description 09/08/2024 Orders Only Hematology/Oncology, [facility] [address] [place], [place] [phone] Flaquita Wilson MD 200 [place] [address] Allergies Active Allergy Reactions Criticality Noted Date Comments Gabapentin Neuro complications (Please comment),Tachycardia 02/06/2023 Hallucinations documented as of this encounter (statuses as of 09/09/2024) Medications Ondansetron HCl 8 MG Oral TabletIndications [...] at bedtime. 60 Tablet 2 025 Active oxyCODONE-Acetami nophen 5-325 MG Oral Tablet (Percocet)Indicat ions:Endometrial cancer (HCC) Take 1 Tablet by mouth every 4 hours as needed for Pain, Moderate. 60 Tablet 025 Active Lisinopril 5 MG Oral Tablet [...] by mouth in the morning. 30 Tablet 025 Active documented as of this encounter (statuses as of 09/09/2024) Active Problems Problem Noted Date Diagnosed Date Encounter for antineoplastic chemotherapy 2023 Vulvar irritation 05/12/2023 Overview (05/12/2023): BIOPSY (05/06/2023) -- BENIGN A. Skin, right vulva, biopsy: Benign mature sebaceous glands with minimal inflammation. Negative for dysplasia and malignancy. Comment: The findings are non-specific, although sebaceous hyperplasia was considered. Clinical correlation is required to determine if the biopsy if front desk representative. B. Skin, left vulva, biopsy: Mild [...] as of this encounter (statuses as of 09/09/2024) Resolved Problems Problem Noted Date Diagnosed Date [...] as of this encounter (statuses as of 09/09/2024) Immunizations Name Administration Dates Next Due Seasonal [...] Care Team (Late st Contact Info) Description 09/13/2024 8:45 AM EDT Hem/Onc Treatment Hematology/Oncology Treatment, [place] [address] [place] [phone] Rosario, Chair 9 Hem Onc [place] [address] [place] [address] 09/15/2024 7:45 AM EDT Telemedicine Genetics HemOnc, [facility] 1000 [facility] [place] [address] Tessa Padilla, [place] [address] [place] [address] 09/16/2024 9:45 AM EDT Pharmacy Pharmacy Hematology Oncology [facility] [address] [place] [address] [facility], [facility] Hem/Onc [address] [place] [address] 09/20/2024 7:50 AM EDT Laboratory Laboratory [address] [place], [place] [phone] Rosario, Lab [address] [place], [place] [address] 09/20/2024 8:30 AM EDT Office Visit Hematology/Oncology [address], [place] [phone] Belinda Christianson CRNP 400 [facility] [place] [address] 09/20/2024 9:00 AM EDT [facility] 200 [facility], [place] [phone] Rosario, Chair 6 Hem Onc [address], [place] [address] 09/29/2024 9:00 AM EDT Office Visit Palliative Medicine [address], [place] [phone] [address] MD 400 [facility] [place] [address] 11/30/2024 9:00 AM EDT Office Visit Sleep Disorders Ctr [facility] 132 [place] [phone] Silvia Holt CRNP 132 [place] [address] 02/09/2025 9:00 AM EDT Office Visit Family Medicine [address] [phone] Lashawn Mejia MD [address] [place] [address] [place] [address] 03/02/2025 10:40 AM EDT Telemedicine Neurology [address] [place] [phone] Clif Mckeon MD 100 [address] [facility] [place] [address] Scheduled Procedures [...] 023, 12/14/2020, 10/21/2007 CKD PHOS USE SMARTSET 32841 12/26/202312/06, 01/16/2016, 02/16/2015, Additional history exists HbA1c 12/26/2023 12/25/2022, 07/0 07/2021, 12/14/2020, Additional history exists Influenza Vaccine (FLU shot) (#1) 2024 05/14/2010 GFR 03/09/2025 09/06/2024, 08/08, 08/17/2024, Additional history exists TSH 08/30/2025 08/30/2024, 03/07, 02/06/2023, Additional history exists CKD HGB USE SMARTSET 90422 09/06/202509/06, 09/06/2024, 08/30/2024, Additional history exists Lipid Panel 01/04/2027 01/04/2022, [...] this encounter Medical Devices Implanted Type Area Ice Scraper Device Identifier Shelf Expiration Date Model / Serial / Lot Port Implant W8f Poly Cath - [id number] Implanted:Qty : 1 on 09/05/2023 by Orville Zendejas MD at [facility] Right: Chest CR BARD : PERIPHERAL VASCULAR [id number] 06/05/2024 [id number] / / [id number] documented as of this encounter Advance Directives * Full Code (Latest Code Status on File) Date Activated Date Inactivated Comments 02/19/2022 1:10 PM 02/19/2022 8:22 PM This order r eflects the patients wishes and were consensually agreed upon. Question Answer Comments Discussion of Advance Directives occurred with: Not Discussed Care Teams [employer] Sales Consultant Relationship Specialty Start Date End Date Lashawn Mejia MD [address] [place] [address] [place] [address] PCP - General Family Medicine 09/22/20 documented as of this encounter
--- OUTSIDE RECORDS SUMMARY | 2024-10-01 03:24 | External Medical Summary | Summary of Care ---
Author Name Unknown Organization [facility] Address [address] [place] [address] Phone [phone] Care Team Providers Care Motion Picture Critic Name Role Phone Lashawn Mejia MD Primary Care Prov ider Reason for Visit * Reason Comments Medication Management Encounter Details Date Type Department Care Team (Late st Contact Info) Description 09/08/2024 9:45 AM [facility] Pharmacy Pharmacy Hematology Oncology [facility] ([facility] [address] [place] [address] [facility], [facility] Hem/Onc [address] [place] [address] Endometrial cancer (HCC)* Allergies Active Allergy Reactions Criticality Noted Date Comments Gabapentin Neuro complications (Please comment),Tachycardia 02/06/2023 Hallucinations documented as of this encounter (statuses as of 09/08/2024) Medications Ondansetron HCl 8 MG Oral TabletIndications [...] the morning. 30 Tablet 11 025 Active documented as of this encounter (statuses as of 09/08/2024) Active Problems Problem Noted Date Diagnosed Date Encounter for antineoplastic chemotherapy 2023 Vulvar irritation 05/12/2023 Overview (05/12/2023): BIOPSY (05/06/2023) -- BENIGN A. Skin, right vulva, biopsy: Benign mature sebaceous glands with minimal inflammation. Negative for dysplasia and malignancy. Comment: The findings are non-specific, although sebaceous hyperplasia was considered. Clinical correlation is required to determine if the biopsy if telephone service representative. B. 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 Not on file Not on file documented as of this encounter Progress Notes * Dinorah Garcia, [facility] - 09/08/2024 1:12 PM EST MEDICATION THERAPY MANAGEMENT LENVATINIB TREATMENT EDUCATION NOTE Lissette CARY [phone] Patient Phone Numbers Preferred Lab: [facility] or [facility] Specialty Pharmacy: [facility] Specialty ([facility] copy below into specialty comments) Treatment consent complete: yes Date: 08/17/24 Precertification complete: yes Date: 08/25/24 Communication: Spoke to: Patient Treatment: Medication: Lenvatinib (Lenvima) Indication/Staging/Diagnosis Code: endometrial cancer / C54.1 Dose: 20mg daily Administration: +/- food Start Date: 09/13/24 Primary Hvac Service Tech/Oncologist: Dr. Wilson Additional Therapy: Pembrolizumab - started 08/30/24 Supportive Care Meds: Ondansetron Prochlorperazine Prophylactic Meds: Urea cream Relevant Chronic Medications: Category Medications Pertinent Notes Antihypertensives Lisinopril 5mg daily Per PCP Thyroid Levothyroxine 200mcg daily Per PCP Treatment History: 2021: ARISTEO and BSO 09/2023-03/2024: Paclitaxel/Carboplatin/RT Medication education: Confirmed pt has received information regarding goals and duration of therapy: yes Reviewed dosing and administration: yes Reviewed importance of medication compliance (document recommendations if barriers identified): yes Reviewed appropriate storage conditions: yes Reviewed handling precautions: yes Reviewed handling body fluids and waste: yes Reviewed side effects, monitoring, and supportive care measures: yes HTN This medication can increase your blood pressure You can monitor your blood pressure at home 2-3 times per week (daily if uncontrolled HTN) Home monitoring blood pressure devices can be purchased through your local pharmacy. Take your blood pressure at the same time of the day, preferably prior to intake of any caffeine, nicotine, or stimulants Keep a log of your BP readings to share with your oncologist and oncology pharmacist If BP > 140/90, try to relax for 5 - 10 min and repeat your blood pressure. If BP remains > 140/90, call clinic Edema This medication may cause swelling and fluid accumulation. This occurs most frequently in the legs,but can also occur in the lungs. Avoid standing for long periods of time Advised to elevate legs above chest level when laying down Use of compression stockings When to call clinic: If symptoms persist, > 5 lb weight gain in one week, SOB develops. A medication called a diuretic may be prescribed to manage this side effect. Hand-foot syndrome This medication can cause blisters, peeling and burning of the skin on the palms of your hands and the soles of your feet Avoid wearing tight-fitting shoes, as well as rigorous exercise, as they can increase friction on the soles of your feet Use luke warm water when taking a shower, washing your hands, washing the dishes Apply Udderly Smooth Extra Care (urea 20% cream) to hands and feet twice daily When to call clinic: If you develop pain/burning, redness, peeling, or blistering Diarrhea This medication can cause loose stools You can purchase OTC loperamide (Imodium A-D) to help manage this side effect (4 mg x 1, followed by 2 mg Q4H or after every loose stool, not to exceed 16 mg/day) Drink plenty of fluids to prevent dehydration, ideally 8-10 glasses per day (unless a healthcare provider has instructed you to limit your fluid intake due to other health conditions) Dietary modifications: eat bland, low fiber foods such as bananas, rice, applesauce, and toast (BRAT diet), avoid dairy, avoid spicy, greasy or fatty foods When to call clinic: If approaching maximum dose of loperamide and still having diarrhea or if you have any s/sx of dehydration; if there is a concern for infectious diarrhea (especially in setting of neutropenia) Nausea/Vomiting This medication may cause nausea or vomiting Moderate/high emetic risk: Zofran 30 minutes prior to chemotherapy and q8h PRN. Compazine for breakthrough N/V Dietary modifications: avoid spicy, greasy, fatty foods If vomiting, increase water intake to avoid dehydration When to call clinic: N/V refractory to antiemetics or if unable to keep up with oral intake Stomatitis This medication can cause mouth soreness or sores Maintain good oral hygiene: use a soft bristle toothbrush; rinse mouth after meals and at bedtime with a non-alcohol based mouthwash Salt water/baking soda rinse: 1/8 tsp salt + tsp baking soda + 8 oz warm water; swish and spit PRN If sore develop, continue supportive care above. Also avoid spicy, acidic, citrus foods When to call clinic: If sores become painful or affecting oral intake Wound healing impairment This medication may affect your body's ability to heal, specifically after a surgery or procedure Please inform the clinic of any upcoming surgeries of procedures, including dental work like extractions or root canals. We will provide you with instructions on how long to hold your chemotherapy. Confirmed pt has received written information about drug therapy: yes Changes to medication list since last visit: no Drug interaction assessment: Treatment plan and current medication list evaluated for drug-drug interactions. No clinically significant drug interaction identified Does patient rely on caregiver for medication management? Yes, Assessment and plan: Pt verbalized understanding to information provided. All questions answered to the patient's satisfaction Pt was educated about role of Oral Chemotherapy Clinic and pharmacist in medication management, andplan for follow up. Per TE 09/01/24 addendum 09/06/24, lenvatinib to be delivered 09/08/24 States she has not received lenvatinib yet Advised to delay start until office reopens 09/13/24 MTM to follow up in 1 week to confirm start date and assess tolerability Follow up: 1 week Dinorah Garcia, PharmD, BCOP Clinical Pharmacist, [facility] Oral Chemotherapy [facility] 09/08/2024, 1:31 PM Monitoring Parameters: Estimated CrCl Serum creatinine: [...] meds) BP Readings from Last 3 Encounters: 09/06/24 112/76 08/30/24 115/74 08/17/24 117/80 Date QTc 01/10/23 334 ms Date LVEF 09/29/20 55% Treatment Parameters Pertinent labs: N/A Time Spent on Encounter: 16 - 20 minutes Encounter Group: Oncology Encounter Interventions Item Category: Oral Chemotherapy Lenvatinib Problem/Rationale: Indication: Needs additional medication therapy - Untreated condition, - Synergistic therapy Education: Initial education Pharmacist Intervention(s): Education provided Magnitude of Intervention: Monitoring with direction (Level 1) Second Item Second Item Category: Topicals Urea Problem/Rationale: Indication: Needs additional medication therapy - Preventive therapy Education: Initial education Pharmacist Intervention(s): Education provided Magnitude of Intervention: Monitoring with direction (Level 1) Third Item Third Item Category: Anti-Emetic Ondansetron Problem/Rationale: Indication: Needs additional medication therapy - Preventive therapy Education: Initial education Pharmacist Intervention(s): Education provided Magnitude of Intervention: Monitoring with direction (Level 1) documented in this encounter Plan of Treatment Upcoming Encounters Date Type Department Care Team (Late st Contact Info) Description 09/13/2024 8:45 AM EDT Hem/Onc Treatment Hematology/Oncology Treatment, [place] [address] [place] [phone] Rosario, Chair 9 Hem Onc [facility] [address] [facility] [address] 09/15/2024 7:45 AM EDT Telemedicine Genetics [facility], [place] [address] [facility] [place] [address] Tessa Padilla, [place] [address] [address] 09/16/2024 9:45 AM EDT Pharmacy Pharmacy Hematology Oncology [facility] [address] [place] [address] [facility], [facility] Hem/Onc [address] [place] [address] 09/20/2024 7:50 AM EDT Laboratory Laboratory Emy Ponce [place] [address] [place] [phone] Rosario Lab [facility] [address] [place] [address] 09/20/2024 8:30 AM EDT Office Visit Hematology/Oncology [employer] [address] [place] [phone] Belinda Christianson CRNP [address] [place] [address] 09/20/2024 9:00 AM EDT Hem/Onc Treatment Hematology/Oncology Treatment, [place] 200 [place] [address] Rosario, Chair 6 Hem Onc [address] [address] 09/29/2024 9:00 AM EDT Office Visit Palliative Medicine [facility] Rosario [place] [address] [place] [address] MD [address] [place] [address] [place] [address] 11/30/2024 9:00 AM EDT Office Visit Sleep Disorders Ctr [facility] [address] [place] [address] Silvia Holt CRNP [address] [place] [address] 02/09/2025 9:00 AM EDT Office Visit Family [address] [address] Lashawn Mejia MD [address] [place] [address] [place] [address] 03/02/2025 10:40 AM EDT Telemedicine Neurology [address] [place] [address] Clif Mckeon MD [address] [facility] [place], [place] [phone] Scheduled Procedures Name Priority Associated Diagnoses Date/Ti [...] 023, 12/14/2020, 10/21/2007 CKD PHOS USE SMARTSET 99573 12/26/202312/06, 01/16/2016, 02/16/2015, Additional history exists HbA1c 12/26/2023 12/25/2022, 0707/2021, 12/14/2020, Additional history exists Influenza Vaccine (FLU shot) (#1) 2024 05/14/2010 GFR 03/09/2025 09/06/2024, 08/08, 08/17/2024, Additional history exists TSH 08/30/2025 08/30/2024, 03/07, 02/06/2023, Additional history exists CKD HGB USE SMARTSET 25869 09/06/202509/06, 09/06/2024, 08/30/2024, Additional history exists Lipid [...] this encounter Medical Devices Implanted Type Area Patient Care Assistant Device Identifier Shelf Expiration Date Model / Serial / Lot Port Implant W8f Poly Cath - [id number] Implanted:Qty : 1 on 09/05/2023 by Orville Zendejas MD at [facility] Right: Chest CR BARD : PERIPHERAL VASCULAR [id number] 06/05/2024 [id number] / / [id number] documented as of this encounter Visit Diagnoses [...] Directives occurred with: Not Discussed Care Teams Motion Picture Critic Relationship Specialty Start Date End Date Lashawn Mejia MD [address] [place] [address] [place] [address] PCP - General Family Medicine 09/22/20 documented as of this encounter
--- OUTSIDE RECORDS SUMMARY | 2024-10-01 03:24 | External Medical Summary | Summary of Care ---
Author Name Unknown Organization [facility] Address [address] [place] [address] Phone [phone] Care Team Providers Care Manager Council Name Role Phone Lashawn Mejia MD Primary Care Prov ider Reason for Visit * Reason Comments IV Therapy Venofer / Encounter Details Date Type Department Care Team (Latest Contact Info) Description 09/13/2024 8:45 AM EDT Hem/Onc Treatment Hematology/Oncology Treatment, [address] [phone] Rosario, Chair [address] Hem On[address] [phone] Endometrial cancer (HCC)*; Iron deficiency anemia due to chronic blood loss; Anemia due to chronic blood loss Allergies Active Allergy Reactions Criticality Noted Date Comments Gabapentin Neuro complications (Please comment),Tachycardia 02/06/2023 Hallucinations documented as of this encounter (statuses as of 09/14/2024) Medications Ondansetron HCl 8 MG Oral TabletIndications [...] needed for Pain, Moderate. 60 Tablet 025 2024 Disconti nued(Ref ill) documented as of this encounter (statuses as of 09/14/2024) Active Problems Problem Noted Date Diagnosed Date Encounter for antineoplastic chemotherapy 2023 Vulvar irritation 05/12/2023 Overview (05/12/2023): BIOPSY (05/06/2023) -- BENIGN A. Skin, right vulva, biopsy: Benign mature sebaceous glands with minimal inflammation. Negative for dysplasia and malignancy. Comment: The findings are non-specific, although sebaceous hyperplasia was considered. Clinical correlation is required to determine if the biopsy if medical sales representative. B. 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 Port needle flushed with 10 ml NSS, blood return noted, and port locked with additional 10 ml NSS. Staton needle removed, intact, gauze dressing applied. Goals: Pt will remain free from injury. Possible barriers to meeting goals: ambulation with IV pole/pt is a high fall risk Stability of the patient: Moderately stable - low risk of patient condition declining or worsening Summary regarding today's goals: Met: . Pt remained free from injury during treatment today. Discharged in stable condition. * Danielle Lau RN - 09/13/2024 9:31 AM EDT Chair 9, Venofer 3/. Pt presents to clinic via w/c with spouse. Pt has no acute concerns/symptoms to report since previous treatment. Pt stated she started her oral chemo pill today. VAD accessed; specimen collected for ordered labs. Venofer infusing. Safety and Risk for Injury Patient will remain free from injury. Ensure appropriate safety devices are available. Provide and maintain safe environment. Patient instructed on use of heat and massage functions where applicable. Patient shown how to operate the heat function of the chair and to alert nursing staff if the chair feels too warm. Patient instructed on the risk of potential cole while using the heat function. documented in this encounter Plan of Treatment Upcoming Encounters Date Type Department Care Team (Late st Contact Info) Description 09/15/2024 7:45 AM EDT Telemedicine Genetics HemOnc, [facility] [address] [facility] [place] [address] Tessa Padilla, [place] [address] [address] 09/16/2024 9:45 AM EDT Pharmacy Pharmacy Hematology Oncology [address] [address] [facility] Hem/Onc [address] [place] [address] 09/20/2024 7:50 AM EDT Laboratory Laboratory [facility] 200 [facility] [place] [phone] Rosario, Lab [facility] 200 [facility] [place], [place] [address] 09/20/2024 8:30 AM EDT Office Visit Hematology/Oncology [facility] 200 [facility] [place] [phone] Belinda Christianson CRNP [address] [place], [place] [phone] 09/20/2024 9:00 AM EDT Hem/Onc Treatment Hematology/Oncology Treatment, [address] [place] [phone] Rosario, Chair 6 Hem Onc [address] [place], [place] [address] 09/29/2024 9:00 AM EDT Office Visit Palliative Medicine [address] [place] [phone] MD [address] [place], [place] [phone] 11/30/2024 9:00 AM EDT Office Visit Sleep Disorders Ctr [facility] [address] [place] [address] Silvia Holt CRNP [address] [place] [address] 02/09/2025 9:00 AM EDT Office Visit [address] [address] Lashawn Mejia MD [address] [place] [address] [place] [address] 03/02/2025 10:40 AM EDT Telemedicine Neurology [address] [place], [place] [address] Clif Mckeon MD [address] [facility] [place] [address] Scheduled Procedures Name [...] 023, 12/14/2020, 10/21/2007 CKD PHOS USE SMARTSET 83781 12/26/202312/06, 01/16/2016, 02/16/2015, Additional history exists HbA1c 12/26/2023 12/25/2022, 07/0 07/2021, 12/14/2020, Additional history exists Influenza Vaccine (FLU shot) (#1) 2024 05/14/2010 GFR 03/09/2025 09/06/2024, 08/08, 08/17/2024, Additional history exists TSH 08/30/2025 08/30/2024, 03/07, 02/06/2023, Additional history exists CKD HGB USE SMARTSET 58650 09/13/202509/13, 09/13/2024, 09/06/2024, Additional history exists Lipid [...] this encounter Medical Devices Implanted Type Area Objects Conservator Device Identifier Shelf Expiration Date Model / Serial / Lot Port Implant W8f Poly Cath - [id number] Implanted:Qty : 1 on 09/05/2023 by Orville Zendejas MD at [facility] Right: Chest CR BARD : PERIPHERAL VASCULAR [id number] 06/05/2024 [id number] / / [id number] documented as of this encounter Procedures Procedure Name Priority Date/Time Associated Diagnosis Comments DIFFERENTIAL, AUTOMATED STAT 09/13/2024 8:45 AM EDT Anemia due to chronic blood loss CBC STAT 09/13/2024 8:45 AM EDT Anemia due to chronic blood loss CBC STAT 09/13/2024 8:45 AM EDT Anemia due to chronic blood loss DIFFERENTIAL, TECHNOLOGIST REVIEW Routine 09/13/2024 8:45 AM EDT Anemia due to chronic blood loss documented in this encounter Results * DIFFERENTIAL, TECHNOLOGIST REVIEW (09/13/2024 8:45 AM EDT) [facility] 09/13/2024 9:22 AM EDT [facility] 56-02 Blood Blood sample taken from central line / Unknown Central Line / Unknown 09/13/2024 8:45 AM EDT 09/13/2024 9:00 AM EDT us Lali Martinez MI[facility] LAB BLOOD ORDERABLES Nemo l Result [facility] [address] [place] [address] * (ABNORMAL) DIFFERENTIAL, AUTOMATED (09/13/2024 8:45 AM EDT) WBC 7.70 4.00 - 10.80 K/uL 09/13/2024 9:22 AM EDT [facility] 56-02 Neutrophils % 80.4(H) 40.0 - 75.0 % 09/13/2024 9:22 AM EDT [facility] 56-02 Lymphocytes % 7.4(L) 18.0 - 42.0 % 09/13/2024 9:22 AM EDT [facility] 56-02 Monocytes % 9.6 1.0 - 11.0 % 09/13/2024 9:22 AM EDT [facility] 56-02 Eosinophils % 2.3 0.0 - 6.0 % 09/13/2024 9:22 AM EDT [facility] 56-02 Basophils % 0.3 0.0 - 2.0 % 09/13/2024 9:22 AM EDT [facility] 56-02 Absolute Neutrophils 6.19 1.80 - 7.70 K/uL 09/13/2024 9:22 AM EDT [facility] 56-02 Absolute Lymphocytes 0.57(L) 1.00 - 4.80 K/ul 09/13/2024 9:22 AM EDT [facility] 56-02 Absolute Monocytes 0.74 0.00 - 1.10 K/uL 09/13/2024 9:22 AM EDT [facility] 56-02 Absolute Eosinophils 0.18 0.00 - 0.70 K/uL 09/13/2024 9:22 AM EDT [facility] 56-02 Absolute Basophils 0.02 0.00 - 0.20 K/uL 09/13/2024 9:22 AM EDT [facility] 56 Blood Blood sample taken from central line / Unknown Central Line / Unknown 09/13/2024 8:45 AM EDT 09/13/2024 9:00 AM EDT us Lali Sellersseun [facility] LAB BLOOD ORDERABLES Nemo l Result [place] [address] [place] [address] * (ABNORMAL) CBC (09/13/2024 8:45 AM EDT) WBC 7.70 4.00 - 10.80 K/uL 09/13/2024 9:[address]T [address] RBC 3.16 3.85 - 5.15 M/uL 09/13/2024 9:22 AM EDT [address] HGB 8.0(L) 12.0 - 15.3 g/dL 09/13/2024 9:22 AM EDT [facility] 56 HCT 27.0(L) 36.0 - 45.2 % 09/13/2024 9:22 AM EDT [facility] 56 MCV 85.4 81.5 - 97.5 fL 09/13/2024 9:22 AM EDT [facility] 56 MCH 25.3 27.0 - 34.0 pg 09/13/2024 9:22 AM EDT [facility] 56 MCHC 29.6 32.0 - 36.0 g/dL 09/13/2024 9:22 AM EDT [facility] 56 RDW 17.5 11.5 - 15.5 % 09/13/2024 9:22 AM EDT [facility] 56 PLT 424(H) 140 - 400 K/uL 09/13/2024 9:22 AM EDT [facility] 56 MPV 8.3 6.6 - 11.1 fL 09/13/2024 9:22 AM EDT [facility] 56 Blood Blood sample taken from central line / Unknown Central Line / Unknown 09/13/2024 8:45 AM EDT 09/13/2024 9:00 AM EDT us Lali [facility] LAB BLOOD ORDERABLES Nemo brito Result [facility] [place] [address] [place] [address] documented in this encounter Visit Diagnoses Diagnosis Endometrial cancer (HCC)- Primary Malignant neoplasm of corpus uteri, except isthmus Iron deficiency anemia due to chronic blood loss Iron deficiency anemia secondary to blood loss (chronic) Anemia due to chronic blood loss Iron deficiency anemia secondary to blood loss (chronic) documented in this encounter Administered Medications Inactive Administered Medications - up to 3 most recent administrations Medication Order MAR Action Action Date Dose Rate Site Iron Sucrose (Venofer) 300 mg in NSS 250 mL ivpb 300 mg, IV Piggyback, ONCE, 1 dose, On Fri09/13/24 at 1015, Administer over 90 MinutesIndications:Endomet rial cancer (HCC),Iron deficiency anemia due to chronic blood loss Start Infusion 09/13/2024 8:44 AM EDT 300 mg 180 mL/hr NSS infusion 500 mL, Intravenous, at 50 mL/hr, CONTINUOUS, Starting on Fri09/13/24 at 0945, Until Fri09/13/24 at 1944Indications:Endometria l cancer (HCC),Iron deficiency anemia due to chronic blood loss Start Infusion 09/13/2024 8:43 AM EDT 500 mL 50 mL/hr sodium chloride 0.9 % flush/inj 20 mL 20 mL, IV Push, PRN IV Flush and Lock, Starting on Fri09/13/24 at 0842, Until Fri09/13/24 at 1957, Do not flush if lock, PICC, or central line not in place; IV infusing or unable to flush. For midlines and central lines. For IV Flush and Lock, IVAD is flushed with a total of 20 mL Normal Saline, 10 mL of Normal Saline Flush with 10 mL of Normal Saline acting as IV LOCK.Indications:Endometri al cancer (HCC),Iron deficiency anemia due to chronic blood loss Given 09/13/2024 10:28 AM EDT 20 mL documented in this encounter Advance Directives * Full Code (Latest Code Status on File) Date Activated Date Inactivated Comments 02/19/2022 1:10 PM 02/19/2022 8:22 PM This order r eflects the patients wishes and were consensually agreed upon. Question Answer Comments Discussion of Advance Directives occurred with: Not Discussed Care Teams Manager Council Relationship Specialty Start Date End Date Lashawn Mejia MD [address] [place] [address] [place] [phone] PCP - General Family Medicine 09/22/20 documented as of this encounter
--- OUTSIDE RECORDS SUMMARY | 2024-10-01 03:24 | External Medical Summary ---
Author Name Unknown Address Unknown Organization K09:[facility] [place] [address] Laboratory Report Ordering Provider Test Date Status MEÑO QUAN 09/13/2024 08:45:46 Final Observation Date Value Abnormality Reference (Units ) Status SYNC LEUKOCYTES IN BLOOD BY AUTOMATED COUNT 09/13/2024 08:45:46 7.70 4.00-10.80 (K/uL) Final Segs 09/13/2024 08:45:46 80.4 Above high normal 40.0-75.0 (%) Final Lymphs % 09/13/2024 08:45:46 7.4 Below low normal 18.0-42.0 (%) Final Monos 09/13/2024 08:45:46 9.6 1.0-11.0 (%) Final Eosinophils 09/13/2024 08:45:46 2.3 0.0-6.0 (%) Final Basos 09/13/2024 08:45:46 0.3 0.0-2.0 (%) Final Absolute Segs 09/13/2024 08:45:46 6.19 1.80-7.70 (K/uL) Final Lymphs, absolute 09/13/2024 08:45:46 0.57 Below low normal 1.00-4.80 (K/ul) Final Monos, Abs 09/13/2024 08:45:46 0.74 0.00-1.10 (K/uL) Final Eos, Abs 09/13/2024 08:45:46 0.18 0.00-0.70 (K/uL) Final Basos, Abs 09/13/2024 08:45:46 0.02 0.00-0.20 (K/uL) Final Performing Location [facility] [place] [address]
--- OUTSIDE RECORDS SUMMARY | 2024-10-01 03:24 | External Medical Summary | Summary of Care ---
Author Name Unknown Organization [facility] Address [address] [place] [address] Phone [phone] Care Team Providers Care Logistics Lead Name Role Phone Lashawn Mejia MD Primary Care Prov ider Reason for Visit * Reason Onset Date Comments Forms Request 09/06/2024 Js Spencer Encounter Details Date Type Department Care Team (Late st Contact Info) Description 09/06/2024 Telephone Hematology/Oncology [facility] [address] [place] [phone] Flaquita Wilson MD 200 [place] [address] Forms Request (Js Spencer) Allergies Active Allergy Reactions Criticality Noted Date [...] to determine if the biopsy if outside dealer sales representative. B. 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 * Telephone Encounter - Selin Brown LPN - 09/07/2024 12:00 PM EST Form completed, fax confirmation page will be scanned into the chart with the form. * Telephone Encounter - Selin Brown LPN - 09/06/2024 3:26 PM EST Patient dropped off completed form with copy of her insurance bill. Will fax once form is completed. documented in this encounter Plan of Treatment Upcoming Encounters Date Type Department Care Team (Late st Contact Info) Description 09/08/2024 9:45 AM EST Pharmacy Pharmacy Hematology Oncology [facility]3] [address] [place] [address] [facility], [facility] Hem/Onc [address] [place] [address] 09/13/2024 8:45 AM EDT Hem/Onc Treatment Hematology/Oncology [address] [place] [phone] Rosario, Chair 9 Hem Onc Scenery [address] [facility] [place] [address] 09/20/2024 7:50 AM EDT Laboratory Laboratory [facility] [address] [place] [phone] Rosario, Lab [facility] [address] [facility] [place] [address] 09/20/2024 8:30 AM EDT Office Visit Hematology/Oncology [facility] [place] [address] [facility] [place] [address] Belinda Christianson CRNP 400 [facility] [address] 09/20/2024 9:00 AM EDT Hem/Onc Treatment Hemat[facility], [place] 200 [facility] [phone] Rosario, Chair 6 Hem Onc Scenery [address] [facility] [place] [address] 09/29/2024 9:00 AM EDT Office Visit Palliative Medicine [facility] [address] [place] [address] MD 400 [facility] [place] [address] 11/16/2024 8:45 AM EDT Telemedicine Genetics HemOnc, [facility] [address] [place] [address] Nat Perez, [place] 1000 [address] [facility] [place] [address] 11/30/2024 9:00 AM EDT Office Visit Sleep Disorders Ctr [facility] [address] [facility] [place] [phone] Silvia Holt CRNP [address] [place] [address] 02/09/2025 9:00 AM EDT Office Visit Family Medicine [address] [phone] Lashawn Mejia MD [address] [place] [address] [place] [address] 03/02/2025 10:40 AM EDT Telemedicine Neurology [address] [place] [address] Clif Mckeon MD [address] [place] [address] Scheduled Procedures Name Priority Associated [...] 023, 12/14/2020, 10/21/2007 CKD PHOS USE SMARTSET 86353 12/26/202312/06, 01/16/2016, 02/16/2015, Additional history exists HbA1c 12/26/2023 12/25/2022, 07/0 07/2021, 12/14/2020, Additional history exists Influenza Vaccine (FLU shot) (#1) 2024 05/14/2010 GFR 03/09/2025 09/06/2024, 08/08, 08/17/2024, Additional history exists TSH 08/30/2025 08/30/2024, 03/07, 02/06/2023, Additional history exists CKD HGB USE SMARTSET 70911 09/06/202509/06, 09/06/2024, 08/30/2024, Additional history exists Lipid [...] this encounter Medical Devices Implanted Type Area Institution Librarian Device Identifier Shelf Expiration Date Model / Serial / Lot Port Implant W8f Poly Cath - [id number] Implanted:Qty : 1 on 09/05/2023 by Orville Zendejas MD at [facility] Right: Chest CR BARD : PERIPHERAL VASCULAR [id number] 06/05/2024 [id number] / / [id number] documented as of this encounter Advance Directives * Full Code (Latest Code Status on File) Date Activated Date Inactivated Comments 02/19/2022 1:10 PM 02/19/2022 8:22 PM This order r eflects the patients wishes and were consensually agreed upon. Question Answer Comments Discussion of Advance Directives occurred with: Not Discussed Care Teams Logistics Lead Relationship Specialty Start Date End Date Lashawn Mejia MD [address] [place] [address] [place] [address] PCP - General Family Medicine 09/22/20 documented as of this encounter
--- OUTSIDE RECORDS SUMMARY | 2024-10-01 03:24 | External Medical Summary ---
Author Name Unknown Address Unknown Organization K09:[facility] [place] [address] Laboratory Report Ordering Provider Test Date Status MEÑO QUAN 09/13/2024 08:45:46 Final Observation Date Value Abnormality Reference (Units ) Status WBC, Total 09/13/2024 08:45:46 7.70 4.00-10.8 0 (K/uL) Final RBC 09/13/2024 08:45:46 3.16 3.85-5.15 (M/uL) Final Hemoglobin 09/13/2024 08:45:46 8.0 Below low normal 12 .0-15.3 (g/dL) Final HCT 09/13/2024 08:45:46 27.0 Below low normal 36. 0-45.2 (%) Final MCV 09/13/2024 08:45:46 85.4 81.5-97.5 (fL) Final MCH 09/13/2024 08:45:46 25.3 27.0-34.0 (pg) Final MCHC 09/13/2024 08:45:46 29.6 32.0-36.0 (g/dL) Final RDW 09/13/2024 08:45:46 17.5 11.5-15.5 (%) Final Platelets 09/13/2024 08:45:46 424 Above high normal 14 0-400 (K/uL) Final MPV 09/13/2024 08:45:46 8.3 6.6-11.1 ( fL) Final Performing Location [facility] [place] [address]
--- OUTSIDE RECORDS SUMMARY | 2024-10-01 03:24 | External Medical Summary | Summary of Care ---
Author Name Unknown Organization [facility] Address [address] [place] [address] Phone [phone] Care Team Providers Care Dredge Worker Name Role Phone Lashawn Mejia MD Primary Care Prov ider Encounter Details Date Type Department Care Team (Late st Contact Info) Description 09/14/2024 Orders Only Hematology/Oncology [facility] [place] [address] [place] [phone] Flaquita Wilson MD [address] [place] [address] Allergies Active Allergy Reactions Criticality Noted Date [...] required to determine if the biopsy if community health representative. B. 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 Not on file documented as of this encounter Plan of Treatment Upcoming Encounters Date Type Department Care Team (Late st Contact Info) Description 09/15/2024 7:45 AM EDT Telemedicine Genetics HemOnc, [facility] 1000 [facility] [place] [address] Tessa Padilla, [place] [address] [address] 09/16/2024 9:45 AM EDT Pharmacy Pharmacy Hematology Oncology [facility] [address] [place] [address] [facility], [facility] Hem/Onc [address] [place] [address] 09/20/2024 7:50 AM EDT Laboratory Laboratory [address] [place] [phone] Rosario, Lab [address], [place] [address] 09/20/2024 8:30 AM EDT Office Visit Hematology/Oncology [address], [place] [phone] Belinda Christianson CRNP [address] [place], [place] [phone] 09/20/2024 9:00 AM EDT Hem/Onc Treatment Hematology/Oncology [address] [place] [phone] Rosario, Chair 6 Hem Onc [address] [address] 09/29/2024 9:00 AM EDT Office Visit Palliative Medicine [address] [place] [address] MD 400 [place], [place] [phone] 11/30/2024 9:00 AM EDT Office Visit Sleep Disorders [facility] [address] [phone] Silvia Holt CRNP [address] [address] 02/09/2025 9:00 AM EDT Office Visit Family Medicine [address] [place] [phone] Lashawn Mejia MD [address] [place] [address] [place] [address] 03/02/2025 10:40 AM EDT Telemedicine Neurology [address] [place] [address] Clif Mckeon MD 100 N [facility] [place] [address] Scheduled Procedures [...] 023, 12/14/2020, 10/21/2007 CKD PHOS USE SMARTSET 25099 12/26/202312/06, 01/16/2016, 02/16/2015, Additional history exists HbA1c 12/26/2023 12/25/2022, 07/0 07/2021, 12/14/2020, Additional history exists Influenza Vaccine (FLU shot) (#1) 2024 05/14/2010 GFR 03/09/2025 09/06/2024, 08/08, 08/17/2024, Additional history exists TSH 08/30/2025 08/30/2024, 03/07, 02/06/2023, Additional history exists CKD HGB USE SMARTSET 84194 09/13/202509/13, 09/13/2024, 09/06/2024, Additional history exists Lipid [...] this encounter Medical Devices Implanted Type Area Experience Specialist Device Identifier Shelf Expiration Date Model / Serial / Lot Port Implant W8f Poly Cath - [id number] Implanted:Qty : 1 on 09/05/2023 by Orville Zendejas MD at [facility] Right: Chest CR BARD : PERIPHERAL VASCULAR [id number] 06/05/2024 [id number] / / [id number] documented as of this encounter Advance Directives * Full Code (Latest Code Status on File) Date Activated Date Inactivated Comments 02/19/2022 1:10 PM 02/19/2022 8:22 PM This order r eflects the patients wishes and were consensually agreed upon. Question Answer Comments Discussion of Advance Directives occurred with: Not Discussed Care Teams Dredge Worker Relationship Specialty Start Date End Date Lashawn Mejia MD [address] [place] [address] [place] [address] PCP - General Family Medicine 09/22/20 documented as of this encounter
--- OUTSIDE RECORDS SUMMARY | 2024-10-01 03:24 | External Medical Summary ---
Author Name Unknown Address Unknown Organization K09:[facility] [place] [address] Laboratory Report Ordering Provider Test Date Status MEÑO QUAN 09/13/2024 08:45:46 Final Observation Date Value Abnormality Reference (Units ) Status Nucleated erythrocytes/100 leukocytes [Ratio] in Blood by Automated count 09/13/2024 08:45:46 Final Performing Location [facility] [place] [address]
--- OUTSIDE RECORDS SUMMARY | 2024-10-01 03:24 | External Medical Summary | Summary of Care ---
Author Name Unknown Organization [facility] Address [address] [place] [address] Phone [phone] Care Team Providers Care Licensed Staff Mft Name Role Phone Lashawn Mejia MD Primary Care Prov ider Reason for Visit * Reason Onset Date Comments Forms Request 09/06/2024 Js Spencer Encounter Details Date Type Department Care Team (Late st Contact Info) Description 09/06/2024 Telephone Hematology/Oncology [facility] [address] [place] [phone] Flaquita Wilson MD 200 [place] [address] Forms Request (Js Spencer) Allergies Active Allergy Reactions Criticality Noted Date Comments Gabapentin Neuro complications (Please comment),Tachycardia 02/06/2023 Hallucinations documented as of this encounter (statuses as of 09/13/2024) Medications Ondansetron HCl 8 MG Oral TabletIndications [...] as of this encounter (statuses as of 09/13/2024) Active Problems Problem Noted Date Diagnosed Date Encounter for antineoplastic chemotherapy 2023 Vulvar irritation 05/12/2023 Overview (05/12/2023): BIOPSY (05/06/2023) -- BENIGN A. Skin, right vulva, biopsy: Benign mature sebaceous glands with minimal inflammation. Negative for dysplasia and malignancy. Comment: The findings are non-specific, although sebaceous hyperplasia was considered. Clinical correlation is required to determine if the biopsy if sales representative rural power. B. Skin, left vulva, biopsy: Mild perifollicular [...] as of this encounter (statuses as of 09/13/2024) Resolved Problems Problem Noted Date Diagnosed Date [...] as of this encounter (statuses as of 09/13/2024) Immunizations Name Administration Dates Next Due Seasonal [...] Miscellaneous Notes * Telephone Encounter - Selin Brown LPN - 09/13/2024 8:36 AM EDT Email received from Mary Beth Lagos at [facility], patient "was approved on 09/08/2024" for her application. My G sent. * Telephone Encounter - Selin Brown LPN - 09/09/2024 10:28 AM EST Per chart review, patient read My G message on 09/08/2024 at 3:24 pm. Form and insurance bill placedin envelope out at the front desk associate unless patient will notify office otherwise. * Telephone Encounter - Selin Brown LPN - 09/08/2024 7:54 AM EST My [...] Description 09/15/2024 7:45 AM EDT Telemedicine Genetics HemOn, [facility] 1000 [facility] [place] [address] Tessa Padilla, [place] [address] [address] 09/16/2024 9:45 AM EDT Pharmacy Pharmacy Hematology Oncology [facility] [address] [place] [address] [facility] Hem/Onc [address] [place] [address] 09/20/2024 7:50 AM EDT Laboratory Laboratory [facility] [place] [address] [place] [address] Rosario, Lab Scenery 200 [facility] [place], [place] [address] 09/20/2024 8:30 AM EDT Office Visit Hematology/Oncology [facility] 200 [place] [phone] Belinda Christianson CRNP 400 [place], [place] [phone] 09/20/2024 9:00 AM EDT Hem/Onc Treatment Hematology/Oncology Treatment, [place] 200 [place] [address] Rosario, Chair 6 Hem Onc [facility] 200 [facility] [address] 09/29/2024 9:00 AM EDT Office Visit Palliative Medicine [facility] 200 [facility] [address] MD 400 [facility] [place] [phone] 11/30/2024 9:00 AM EDT Office Visit Sleep Disorders [facility] 132 [facility] [place] [phone] Silvia Holt CRNP 132 [facility] [place] [address] 02/09/2025 9:00 AM EDT Office Visit Family Medicine [address] [place] [address] Lashawn Mejia MD [address] [place] [address] [place] [address] 03/02/2025 10:40 AM EDT Telemedicine Neurology [address] [place] [address] Clif Mckeon MD 100 N [facility] [place] [address] Scheduled Procedures Name [...] 023, 12/14/2020, 10/21/2007 CKD PHOS USE SMARTSET 85233 12/26/202312/06, 01/16/2016, 02/16/2015, Additional history exists HbA1c 12/26/2023 12/25/2022, 07/0 07/2021, 12/14/2020, Additional history exists Influenza Vaccine (FLU shot) (#1) 2024 05/14/2010 GFR 03/09/2025 09/06/2024, 08/08, 08/17/2024, Additional history exists TSH 08/30/2025 08/30/2024, 03/07, 02/06/2023, Additional history exists CKD HGB USE SMARTSET 79430 09/13/202509/13, 09/13/2024, 09/06/2024, Additional history exists Lipid [...] this encounter Medical Devices Implanted Type Area Orthodontic Lab Technician Device Identifier Shelf Expiration Date Model / Serial / Lot Port Implant W8f Poly Cath - [id number] Implanted:Qty : 1 on 09/05/2023 by Orville Zendejas MD at [facility] Right: Chest CR BARD : PERIPHERAL VASCULAR [id number] 06/05/2024 [id number] / / [id number] documented as of this encounter Advance Directives * Full Code (Latest Code Status on File) Date Activated Date Inactivated Comments 02/19/2022 1:10 PM 02/19/2022 8:22 PM This order r eflects the patients wishes and were consensually agreed upon. Question Answer Comments Discussion of Advance Directives occurred with: Not Discussed Care Teams Licensed Staff Mft Relationship Specialty Start Date End Date Lashawn Mejia MD [address] [place] [address] [place] [address] PCP - General Family Medicine 09/22/20 documented as of this encounter
--- OUTSIDE RECORDS SUMMARY | 2024-10-01 03:24 | External Medical Summary | Summary of Care ---
Author Name Unknown Organization [facility] Address [address] [place] [address] Phone [phone] Care Team Providers Care Employee Representative Name Role Phone Lashawn Mejia MD Primary Care Prov ider Reason for Visit * Reason Onset Date Comments Test Results Lab 09/07/2024 Encounter Details Date Type Department Care Team (Late st Contact Info) Description 09/07/2024 Telephone Hematology/Oncology [facility] 200 [facility] [place] [address] Flaquita Wilson MD 200 [place] [address] Test Results Lab Allergies Active Allergy Reactions Criticality Noted Date Comments Gabapentin Neuro complications (Please comment),Tachycardia 02/06/2023 Hallucinations documented as of this encounter (statuses as of 09/07/2024) Medications Ondansetron HCl 8 MG Oral TabletIndications [...] as of this encounter (statuses as of 09/07/2024) Active Problems Problem Noted Date Diagnosed Date Encounter for antineoplastic chemotherapy 2023 Vulvar irritation 05/12/2023 Overview (05/12/2023): BIOPSY (05/06/2023) -- BENIGN A. Skin, right vulva, biopsy: Benign mature sebaceous glands with minimal inflammation. Negative for dysplasia and malignancy. Comment: The findings are non-specific, although sebaceous hyperplasia was considered. Clinical correlation is required to determine if the biopsy if technical sales representative. B. 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 Wilson: Patients results from today shows iron level of 25 with TSAT 10%, anything further needed at this time? * Telephone Encounter - Selin Brown LPN - 09/07/2024 3:27 PM EST My G sent. * Telephone Encounter - Selin Brown LPN - 09/07/2024 3:23 PM EST ----- Message from Flaquita Wilson MD sent at 09/07/2024 12:24 PM EST ----- Vitamin B12 level has decreased to 192. Recommended to take the vitamin-B12 tablets on daily basis and repeat the level in 3 weeks documented in this encounter Plan of Treatment Upcoming Encounters Date Type Department Care Team (Late st Contact Info) Description 09/08/2024 9:45 AM EST Pharmacy Pharmacy Hematology Oncology [place] [address] [place] [address] [facility], [facility] Hem/Onc [facility] [place] [address] 09/08/2024 11:00 AM EST Office Visit Palliative Medicine [address] [place] [phone] MD [address] [place] [address] 09/13/2024 8:45 AM EDT Hem/Onc Treatment Hematology/Oncology Treatment, [address], [place] [address] Rosario, Chair 9 Hem Onc [address], [place] [address] 09/20/2024 7:50 AM EDT Laboratory Laboratory [facility] [address] [place] [phone] Rosario, Lab [place] [address] Emy [address] [place], [place] [address] 09/20/2024 8:30 AM EDT Office Visit Hematology/Oncology [facility] [address] [place] [address] Belinda Christianson CRNP 400 [facility] [phone] 09/20/2024 9:00 AM EDT Hem/Onc Treatment Hematology/Oncology Treatment, [place] [address] [place] [address] Park, Chair 6 Hem Onc Scenery [address] [place] [phone] 11/16/2024 8:45 AM EDT Telemedicine Genetics HemOnc, [facility] [address] [place] [phone] Nat Perez, [place] [address] [facility] [place] [address] 11/30/2024 9:00 AM EDT Office Visit [facility] Disorders [facility] [place] [phone] Silvia Holt CRNP 132 [facility] [address] 02/09/2025 9:00 AM EDT Office Visit Family [address] [phone] Lashawn Mejia MD [address] [place] [address] [place] [address] 03/02/2025 10:40 AM EDT Telemedicine Neurology [address] [place] [address] Clif Mckeon MD 100 [address] [facility] [place] [address] Scheduled Orders Name Type Priority Associated Diagnoses Orde r Schedule VITAMIN B12 Lab Routine Anemia, unspecified type Expected: 09/28/2024 (Approximate), Expires: 09/07/2025 Scheduled Procedures Name Priority Associated Diagnoses Date/Ti [...] 023, 12/14/2020, 10/21/2007 CKD PHOS USE SMARTSET 36474 12/26/202312/06, 01/16/2016, 02/16/2015, Additional history exists HbA1c 12/26/2023 12/25/2022, 07/0 07/2021, 12/14/2020, Additional history exists Influenza Vaccine (FLU shot) (#1) 2024 05/14/2010 GFR 03/09/2025 09/06/2024, 08/08, 08/17/2024, Additional history exists TSH 08/30/2025 08/30/2024, 03/07, 02/06/2023, Additional history exists CKD HGB USE SMARTSET 98409 09/06/202509/06, 09/06/2024, 08/30/2024, Additional history exists Lipid [...] this encounter Medical Devices Implanted Type Area Tannery Gummer Device Identifier Shelf Expiration Date Model / Serial / Lot Port Implant W8f Poly Cath - [id number] Implanted:Qty : 1 on 09/05/2023 by Orville Zendejas MD at [facility] Right: Chest CR BARD : PERIPHERAL VASCULAR [id number] 06/05/2024 [id number] / / [id number] documented as of this encounter Visit Diagnoses Diagnosis Anemia, unspecified type- Primary documented in this encounter Advance Directives * Full Code (Latest Code Status on File) Date Activated Date Inactivated Comments 02/19/2022 1:10 PM 02/19/2022 8:22 PM This order r eflects the patients wishes and were consensually agreed upon. Question Answer Comments Discussion of Advance Directives occurred with: Not Discussed Care Teams Employee Representative Relationship Specialty Start Date End Date Lashawn Mejia MD [address] [place] [address] [place] [address] PCP - General Family Medicine 09/22/20 documented as of this encounter
--- OUTSIDE RECORDS SUMMARY | 2024-10-01 03:24 | External Medical Summary | Summary of Care ---
Author Name Unknown Organization [facility] Address [address] [place] [address] Phone [phone] Care Team Providers Care Car Rider Name Role Phone Lashawn Mejia MD Primary Care Prov ider Reason for Visit * Reason Onset Date Comments Forms Request 09/06/2024 Js Spencer Encounter Details Date Type Department Care Team (Late st Contact Info) Description 09/06/2024 Telephone Hematology/Oncology [facility] [address] [place] [phone] Flaquita Wilson MD [address] [place] [address] Forms Request (Js Spencer) Allergies Active Allergy [...] required to determine if the biopsy if personnel representative. B. 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 Form and insurance bill placedin envelope out at the manager service desk unless patient will notify office otherwise. * [...] 8:45 AM EDT Hem/Onc Treatment Hematology/Oncology Treatment, [place] [address] [facility] [place] [phone] Rosario, Chair 9 Hem On[address] [place] [address] 09/15/2024 7:45 AM EDT Telemedicine Genetics [facility], [facility] [address] [place] [address] Tessa Padilla, [place] [address] [address] 09/16/2024 9:45 AM EDT Pharmacy Pharmacy Hematology Oncology [facility] [address] [place] [address] [facility], [facility] Hem/Onc [address] [place] [address] 09/20/2024 7:50 AM EDT Laboratory Laboratory [facility] [place] [address] [place] [phone] [place], [address] [place] [address] 09/20/2024 8:30 AM EDT Office Visit Hematology/Oncology [facility] 200 [place] [phone] Belinda Christianson CRNP [address] [place], [place] [phone] 09/20/2024 9:00 AM EDT Hem/Onc Treatment Hematology/Oncology Treatment, [address] [place] [phone] Rosario, Chair 6 Hem Onc [address] [place] [address] 09/29/2024 9:00 AM EDT Office Visit Palliative Medicine [address] [place] [address] MD 400 [place], [place] [phone] 11/30/2024 9:00 AM EDT Office Visit Sleep Disorders [facility] [address] [facility] [phone] Silvia Holt CRNP 132 [facility] [place] [address] 02/09/2025 9:00 AM EDT Office Visit Family [address] [place] [address] Lashawn Mejia MD [address] [place] [address] [place] [address] 03/02/2025 10:40 AM EDT Telemedicine Neurology [address] [address] [place] [phone] Clif Mckeon MD [address] [place] [address] Scheduled Procedures Name Priority Associated Diagnoses Date/Ti [...] 023, 12/14/2020, 10/21/2007 CKD PHOS USE SMARTSET 97029 12/26/202312/06, 01/16/2016, 02/16/2015, Additional history exists HbA1c 12/26/2023 12/25/2022, 07/0 07/2021, 12/14/2020, Additional history exists Influenza Vaccine (FLU shot) (#1) 2024 05/14/2010 GFR 03/09/2025 09/06/2024, 08/08, 08/17/2024, Additional history exists TSH 08/30/2025 08/30/2024, 03/07, 02/06/2023, Additional history exists CKD HGB USE SMARTSET 62068 09/06/202509/06, 09/06/2024, 08/30/2024, Additional history exists Lipid Panel 01/04/2027 01/04/2022, 09/04, 06/01/2016, Additional history exists Colonoscopy 07/13/2034 07/13/2024, 0 01/2025, 07/03/2023, Additional history exists Colorectal Cancer [...] this encounter Medical Devices Implanted Type Area Calibration Laboratory Technician Device Identifier Shelf Expiration Date Model / Serial / Lot Port Implant W8f Poly Cath - [id number] Implanted:Qty : 1 on 09/05/2023 by Orville Zendejas MD at [facility] Right: Chest CR BARD : PERIPHERAL VASCULAR [id number] 06/05/2024 [id number] / / [id number] documented as of this encounter Advance Directives * Full Code (Latest Code Status on File) Date Activated Date Inactivated Comments 02/19/2022 1:10 PM 02/19/2022 8:22 PM This order r eflects the patients wishes and were consensually agreed upon. Question Answer Comments Discussion of Advance Directives occurred with: Not Discussed Care Teams Car Rider Relationship Specialty Start Date End Date Lashawn Mejia MD [address] [place] [address] [place] [phone] PCP - General Family Medicine 09/22/20 documented as of this encounter
--- OUTSIDE RECORDS SUMMARY | 2024-10-01 03:24 | External Medical Summary | Summary of Care ---
Author Name Unknown Organization [facility] Address [address] [place] [address] Phone [phone] Care Team Providers Care Cabinetmaker Maintenance Name Role Phone Lashawn Mejia MD Primary Care Prov ider Reason for Visit * Reason Onset Date Comments Medication Refill 09/11/2024 Encounter Details Date Type Department Care Team (Late st Contact Info) Description 09/11/2024 Refill Hematology/Oncology [facility] 200 [facility] [phone] Flaquita Wilson MD 200 [place] [address] Endometrial cancer (HCC) Allergies Active Allergy Reactions [...] for Pain, Moderate. 60 Tablet 025 Active oxyCODONE-Acetami nophen 5-325 MG Oral [...] required to determine if the biopsy if self pay representative. B. 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 * Telephone Encounter - Selin Brown LPN - 09/13/2024 7:11 AM EDT Refill request for Oxycodone-Acetaminophen 5-325 mg pended below: Last Refill: 08/26/2024 PDMP reviewed per [facility] regulations. "Patient not found in PDMP database" 8:42 am: Spoke with Renee in the pharmacy, Renee verbally verified the patient last filled the oxycodone-acetaminophen 5-325 mg on 08/26/2024, patient picked up the prescription on 08/27/2024 for the 60 tablets. Last seen: 08/30/2024 Next Appt.: 09/20/2024 documented in this encounter Plan of Treatment Upcoming Encounters Date Type Department Care Team (Late st Contact Info) Description 09/15/2024 7:45 AM EDT Telemedicine Genetics HemOnc, [facility] 1000 [facility] [place] [address] T[place] Padilla, [place] [address] [address] 09/16/2024 9:45 AM EDT Pharmacy Pharmacy Hematology Oncology [address] [place] [address] [address] [facility], [facility] Hem/Onc [address] [place] [address] 09/20/2024 7:50 AM EDT Laboratory Laboratory [address] [place], [place] [phone] Rosario, Lab [facility] 200 [facility] [place] [address] 09/20/2024 8:30 AM EDT Office Visit Hematology/Oncology [facility] 200 [place] [phone] Belinda Christianson CRNP [address] [place], [place] [phone] 09/20/2024 9:00 AM EDT Hem/Onc Treatment Hematology/Oncology Treatment, [address] [place] [phone] Rosario, Chair 6 Hem Onc [address] [place] [address] 09/29/2024 9:00 AM EDT Office Visit Palliative Medicine [address] [place] [phone] MD 400 [place], [place] [phone] 11/30/2024 9:00 AM EDT Office Visit Sleep Disorders Ctr [facility] [place] [phone] Silvia Holt CRNP 132 [place] [address] 02/09/2025 9:00 AM EDT Office Visit Family Medicine [address] [place] [address] Lashawn Mejia MD [address] [place] [address] [place] [address] 03/02/2025 10:40 AM EDT Telemedicine Neurology [address] [address] [place] [phone] Clif Mckeon MD [address] [facility] [place] [address] Scheduled Procedures Name [...] 023, 12/14/2020, 10/21/2007 CKD PHOS USE SMARTSET 24496 12/26/202312/06, 01/16/2016, 02/16/2015, Additional history exists HbA1c 12/26/2023 12/25/2022, 07/0 07/2021, 12/14/2020, Additional history exists Influenza Vaccine (FLU shot) (#1) 2024 05/14/2010 GFR 03/09/2025 09/06/2024, 08/08, 08/17/2024, Additional history exists TSH 08/30/2025 08/30/2024, 03/07, 02/06/2023, Additional history exists CKD HGB USE SMARTSET 56187 09/13/202509/13, 09/13/2024, 09/06/2024, Additional history exists Lipid [...] this encounter Medical Devices Implanted Type Area Tacker Off Device Identifier Shelf Expiration Date Model / Serial / Lot Port Implant W8f Poly Cath - [id number] Implanted:Qty : 1 on 09/05/2023 by Orville Zendejas MD at [facility] Right: Chest CR BARD : PERIPHERAL VASCULAR [id number] 06/05/2024 [id number] / / [id number] documented as of this encounter Visit Diagnoses Diagnosis Endometrial cancer (HCC) Malignant neoplasm of corpus uteri, except isthmus documented in this encounter Advance Directives * Full Code (Latest Code Status on File) Date Activated Date Inactivated Comments 02/19/2022 1:10 PM 02/19/2022 8:22 PM This order r eflects the patients wishes and were consensually agreed upon. Question Answer Comments Discussion of Advance Directives occurred with: Not Discussed Care Teams Cabinetmaker Maintenance Relationship Specialty Start Date End Date Lashawn Mejia MD [address] [place] [address] [place] [address] PCP - General Family Medicine 09/22/20 documented as of this encounter
--- OUTSIDE RECORDS SUMMARY | 2024-10-01 03:25 | External Medical Summary ---
Author Name Unknown Address Unknown Organization K09:[facility] [address] [place] [address] Laboratory Report Ordering Provider Test Date Status BROCK BURNHAM 09/06/2024 14:38:44 Final Observation Date Value Abnormality Reference (Units ) Status BUN 09/06/2024 14:38:44 24 Above high normal 6-20 (mg/dL) Final Creatinine 09/06/2024 14:38:44 1.4 Above high normal 0.5-1.0 (mg/dL) Final Glomerular filtration rate/1.73 sq M.predicted [Volume Rate/Area] in Serum, Plasma or Blood by Creatinine-based formula (CKD-EPI) 09/06/2024 14:38:44 42 Below low normal >=60 (mL/min) Final eGFR is calculated based on the CKD-EPI 2020 equation. Sodium 09/06/2024 14:38:44 140 135-146 (m mol/L) Final Potassium 09/06/2024 14:38:44 4.0 3.5-5.1 (m mol/L) Final Cl 09/06/2024 14:38:44 106 98-107 (mm ol/L) Final CO2 09/06/2024 14:38:44 23 22-32 (mmo l/L) Final Anion gap 09/06/2024 14:38:44 11 7-15 (mmol /L) Final Glucose 09/06/2024 14:38:44 111 70-120 (mg /dL) Final Albumin 09/06/2024 14:38:44 3.7 Below low normal 3.8 -5.0 (g/dL) Final AST (Aspartate aminotransferase) 09/06/2024 14:38:44 12 10-35 (U/L) Fin al Alk Phos 09/06/2024 14:38:44 75 35-130 (U/ L) Final Bilirubin, Total 09/06/2024 14:38:44 0.2 <=1 .2 (mg/dL) Final Calcium 09/06/2024 14:38:44 9.1 8.4-10.2 ( mg/dL) Final Protein 09/06/2024 14:38:44 6.8 6.0-8.3 (g /dL) Final ALT (Alanine aminotransferase) 09/06/2024 14:38:44 14 10-35 (U/L) Fermin burden Performing Location [facility] [address] [place] [address]
--- OUTSIDE RECORDS SUMMARY | 2024-10-01 03:25 | External Medical Summary ---
Author Name Unknown Address Unknown Organization K01[facility] - [address] [place] [address] Laboratory Report Ordering Provider Test Date Status BROCK BURNHAM 09/06/2024 14:38:44 Final Observation Date Value Abnormality Reference (Units ) Status LDH 09/06/2024 14:38:44 146 <=250 (U/L ) Final Performing Location [facility] - [address] [place] [address]
--- OUTSIDE RECORDS SUMMARY | 2024-10-01 03:25 | External Medical Summary ---
Author Name Unknown Address Unknown Organization K09:[facility] [address] [place] [address] Laboratory Report Ordering Provider Test Date Status BROCK BURNHAM 09/06/2024 14:38:44 Final Observation Date Value Abnormality Reference (Units ) Status SYNC LEUKOCYTES IN BLOOD BY AUTOMATED COUNT 09/06/2024 14:38:44 7.72 4.00-10.80 (K/uL) Final Segs 09/06/2024 14:38:44 83.4 Above high normal 40.0-75.0 (%) Final Lymphs % 09/06/2024 14:38:44 6.1 Below low normal 18.0-42.0 (%) Final Monos 09/06/2024 14:38:44 8.3 1.0-11.0 (%) Final Eosinophils 09/06/2024 14:38:44 1.9 0.0-6.0 (%) Final Basos 09/06/2024 14:38:44 0.3 0.0-2.0 (%) Final Absolute Segs 09/06/2024 14:38:44 6.44 1.80-7.70 (K/uL) Final Lymphs, absolute 09/06/2024 14:38:44 0.47 Below low normal 1.00-4.80 (K/ul) Final Monos, Abs 09/06/2024 14:38:44 0.64 0.00-1.10 (K/uL) Final Eos, Abs 09/06/2024 14:38:44 0.15 0.00-0.70 (K/uL) Final Basos, Abs 09/06/2024 14:38:44 0.02 0.00-0.20 (K/uL) Final Performing Location [facility] [address] [place] [address]
--- OUTSIDE RECORDS SUMMARY | 2024-10-01 03:25 | External Medical Summary | Summary of Care ---
Author Name Unknown Organization [facility] Address [address] [place] [address] Phone [phone] Care Team Providers Care Testing Projects Administrator Name Role Phone Lashawn Mejia MD Primary Care Prov ider Encounter Details Date Type Department Care Team (Late st Contact Info) Description 09/06/2024 Orders Only Hematology/Oncology, [facility] 400 [place] [address] Flaquita Wilson MD 200 [place], [place] [phone] Endometrial cancer (HCC)* Allergies Active Allergy Reactions [...] mouth in the morning. 30 Tablet 11 Active documented as of this encounter (statuses [...] required to determine if the biopsy if uniforms sales representative. B. 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 Not on file documented as of this encounter Plan of Treatment Upcoming Encounters Date Type Department Care Team (Late st Contact Info) Description 09/08/2024 9:45 AM EST Pharmacy Pharmacy Hematology Oncology [facility] [address] [place] [address] [facility] Hem[facility]Onc [address] [place] [address] 09/08/2024 11:00 AM EST Office Visit Palliative Medicine [facility] 200 [place] [address] MD [address] [place] [address] 09/13/2024 8:45 AM EDT Hem[facility] 200 [facility], [place] [phone] Rosario, Chair 9 Hem Onc [address] [place], [place] [address] 09/20/2024 7:50 AM EDT Laboratory Laboratory [facility] [address] [place], [place] [phone] Rosraio, Lab [facility] 200 [facility] [place], [place] [address] 09/20/2024 8:30 AM EDT Office Visit Hematology/Oncology [facility] [address] [place], [place] [phone] Belinda Christianson CRNP [address] [place] [address] 09/20/2024 9:00 AM EDT Hem/Onc Treatment Hematology/Oncology [facility] 200 [facility], [place] [phone] Rosario, Chair 6 Hem Onc [facility] 200 [facility] [place], [place] [address] 11/16/2024 8:45 AM EDT Telemedicine Genetics HemOnc, [facility] [address] [place] [address] Nat Perez, [place] [address] [facility] [place] [address] 11/30/2024 9:00 AM EDT Office Visit Sleep Disorders Ctr [facility] [address] [place] [phone] Silvia Holt CRNP [address] [place] [address] 02/09/2025 9:00 AM EDT Office Visit Family Medicine [address] [place] [phone] Lashawn Mejia MD [address] [place] [address] [place] [address] 03/02/2025 10:40 AM EDT Telemedicine Neurology [place] [address] [place] [phone] Clif Mckeon MD 100 [address] [facility] [place] [address] Pending Results Name Type Priority Associated Diagnoses Date /Time FERRITIN Lab Routine Endometrial cancer (HCC) 09/06/2024 2:38 PM EST FOLIC ACID Lab Routine Endometrial cancer (HCC) 09/06/2024 2:38 PM EST VITAMIN B12 Lab Routine Endometrial cancer (HCC) 09/06/2024 2:38 PM EST Scheduled Procedures Name Priority Associated Diagnoses Date/Ti [...] 023, 12/14/2020, 10/21/2007 CKD PHOS USE SMARTSET 21377 12/26/202312/06, 01/16/2016, 02/16/2015, Additional history exists HbA1c 12/26/2023 12/25/2022, 07/0 07/2021, 12/14/2020, Additional history exists Influenza Vaccine (FLU shot) (#1) 2024 05/14/2010 GFR 03/09/2025 09/06/2024, 08/08, 08/17/2024, Additional history exists TSH 08/30/2025 08/30/2024, 03/07, 02/06/2023, Additional history exists CKD HGB USE SMARTSET 90290 09/06/202509/06, 09/06/2024, 08/30/2024, Additional history exists Lipid [...] this encounter Medical Devices Implanted Type Area Loom Technician Device Identifier Shelf Expiration Date Model / Serial / Lot Port Implant W8f Poly Cath - [id number] Implanted:Qty : 1 on 09/05/2023 by rOville Zendejas MD at [facility] Right: Chest CR BARD : PERIPHERAL VASCULAR [id number] 06/05/2024 [id number] / / [id number] documented as of this encounter Procedures Procedure Name Priority Date/Time Associated Diagnosis Comments RETICULOCYTE PANEL Routine 09/06/2024 2: 38 PM EST Endometrial cancer (HCC) IRON SCREEN, INCLUDING TIBC Routine 09/06/2024 2:38 PM EST Endometrial cancer (HCC) LD Routine 09/06/2024 2:38 PM EST Endometrial cancer (HCC) documented in this encounter Results * (ABNORMAL) IRON SCREEN, INCLUDING TIBC (09/06/2024 2:38 PM EST) Iron 25(L) 33 - 151 ug/dL 09/06/2024 10:38 PM EST [facility] Iron Binding Capacity 253 250 - 425 ug/dL 09/06/2024 10:38 PM EST [facility] Transferrin Saturation Percent 10(L) 15 - 55 % 09/06/2024 10:38 PM EST [facility] Blood Venous blood specimen / Unknown Central Line / Unknown 09/06/2024 2:38 PM EST 09/06/2024 2:52 PM EST Flaquita Wilson MD LAB BLOOD ORDERABLES Fin al Result [facility] [address] [place] [address] * (ABNORMAL) RETICULOCYTE PANEL (09/06/2024 2:38 PM EST) Pathologist [facility] Reticulocyte Percent 2.92(H) 0.80 - 1.90 % 09/07/2024 12:15 AM EST [facility] Absolute Reticulocyte 90.5 31.3 - 100.1 K/uL 09/07/2024 12:15 AM EST [facility] Immature Reticuloctye Fraction 38.0(H) 2.5 - 20.6 % 09/07/2024 12:15 AM EST [facility] Reticulocyte Hemoglobin 24.4(L) 29.7 - 37.4 pg 09/07/2024 12:15 AM EST [facility] Blood Venous blood specimen / Unknown Central Line / Unknown 09/06/2024 2:38 PM EST 09/06/2024 2:52 PM EST Flaquita Wilson MD LAB BLOOD ORDERABLES Fin al Result Performing Organization Address City/[facility]/ZIP Co de Phone Number [facility] [address] [place] [address] * LD (09/06/2024 2:38 PM EST) LD 146 <=250 U/L 09/06/2024 10:38 PM EST [facility] Blood Venous blood specimen / Unknown Central Line / Unknown 09/06/2024 2:38 PM EST 09/06/2024 2:52 PM EST Sams HernanWallace MD LAB BLOOD ORDERABLES Fin al Result Performing Organization Address [facility] Co de Phone Number [facility] [address] [place] [address] documented in this encounter Visit Diagnoses Diagnosis [...] Directives occurred with: Not Discussed Care Teams Testing Projects Administrator Relationship Specialty Start Date End Date Lashawn Mejia MD [address] [place] [address] [place] [address] PCP - General Family Medicine 09/22/20 documented as of this encounter
--- OUTSIDE RECORDS SUMMARY | 2024-10-01 03:25 | External Medical Summary | Summary of Care ---
Author Name Unknown Organization [facility] Address [address] [place] [address] Phone [phone] Care Team Providers Care Branding Machine Tender Name Role Phone Lashawn Mejia MD Primary Care Prov ider Reason for Visit * Reason Comments Infusion Venofer Encounter Details Date Type Department Care Team (Latest Contact Info) Description 09/06/2024 2:30 PM EST Hem/Onc Treatment Hematology/Oncology Treatment, [address] [phone] Park, Chair 2 Hem Onc [address] [address] Endometrial cancer (HCC)*; Iron deficiency anemia due [...] Capsule by mouth at bedtime. 30 Capsule 025 Active oxyBUTYnin Chloride ER 10 MG [...] required to determine if the biopsy if territory sales representative. B. 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 Port accessed with brisk blood return and labs drawn. Patient instructed on use of heat in chair. Patient shown how to operate the heat function of the chair and to alert nursing staff if the chair feels too warm. Patient instructed on the risk of potential cole while using the heat function. Safety and Risk for Injury Patient will remain free from injury. Ensure appropriate safety devices are available. Provide and maintain safe environment. documented in this encounter Miscellaneous Notes * Result Encounter Note - Flaquita Wilson MD - 09/06/2024 4:06 PM EST Anemia workup requested to be added documented in this encounter Plan of Treatment Upcoming Encounters Date Type Department Care Team (Late st Contact Info) Description 09/08/2024 9:45 AM EST Pharmacy Pharmacy Hematology Oncology [facility] [address] [place] [address] [facility] Hem/Onc [address] [place] [address] 09/08/2024 11:00 AM EST Office Visit Palliative Medicine [facility] [address] [phone] MD [address] [place] [address] 09/13/2024 8:45 AM EDT Hem/Onc Treatment Hematology/Oncology Treatment, [place] [facility] [phone] Rosario, Chair 9 Hem Onc [place] [address] [place] [address] 09/20/2024 7:50 AM EDT Laboratory Laboratory [facility] [address] [place] [phone] [address] [place] [address] 09/20/2024 8:30 AM EDT Office Visit Hematology/Oncology Scenery [facility] [address] [place] [address] Belinda Christianson CRNP 400 [place] [address] 09/20/2024 9:00 AM EDT Hem/Onc Treatment Hematology/Oncology Treatment, [place] [address] [place], [place] [address] Rosario, Chair 6 Hem Onc Scenery 200 [facility] [place] [address] 11/16/2024 8:45 AM EDT Telemedicine Genetics HemOnc, [facility] [address] [place] [address] Nat Perez, [place] [address] [facility] [place] [address] 11/30/2024 9:00 AM EDT Office Visit Sleep Disorders [facility] 132 [facility] [place] [phone] Silvia Holt CRNP 132 [facility] [place] [address] 02/09/2025 9:00 AM EDT Office Visit Family Medicine [address] [place] [address] Lashawn Mejia MD [address] [place] [address] [place] [address] 03/02/2025 10:40 AM EDT Telemedicine Neurology [address] [place] [phone] Clif Mckeon MD [address] [place] [address] Scheduled Procedures Name Priority Associated Diagnoses Date/Ti [...] 023, 12/14/2020, 10/21/2007 CKD PHOS USE SMARTSET 05516 12/26/202312/06, 01/16/2016, 02/16/2015, Additional history exists HbA1c 12/26/2023 12/25/2022, 07/0 07/2021, 12/14/2020, Additional history exists Influenza Vaccine (FLU shot) (#1) 2024 05/14/2010 GFR 03/09/2025 09/06/2024, 08/08, 08/17/2024, Additional history exists TSH 08/30/2025 08/30/2024, 03/07, 02/06/2023, Additional history exists CKD HGB USE SMARTSET 46639 09/06/202509/06, 09/06/2024, 08/30/2024, Additional history exists Lipid [...] this encounter Medical Devices Implanted Type Area Forming Yardage Control Operator Device Identifier Shelf Expiration Date Model / Serial / Lot Port Implant W8f Poly Cath - [id number] Implanted:Qty : 1 on 09/05/2023 by Orville Zendejas MD at [facility] Right: Chest CR BARD : PERIPHERAL VASCULAR [id number] 06/05/2024 [id number] / / [id number] documented as of this encounter Procedures Procedure Name Priority Date/Time Associated Diagnosis Comments DIFFERENTIAL, AUTOMATED STAT 09/06/2024 2:38 PM EST Endometrial cancer (HCC) COMPREHENSIVE METABOLIC PANEL STAT 09/06/2024 2:38 PM EST Endometrial cancer (HCC) CBC STAT 09/06/2024 2:38 PM EST Endometrial cancer (HCC) CBC STAT 09/06/2024 2:38 PM EST Endometrial cancer (HCC) documented in this encounter Results * (ABNORMAL) DIFFERENTIAL, AUTOMATED (09/06/2024 2:38 PM EST) WBC 7.72 4.00 - 10.80 K/uL 09/06/2024 2:55 PM EST [facility] 56-02 Neutrophils % 83.4(H) 40.0 - 75.0 % 09/06/2024 2:55 PM EST [facility] 56-02 Lymphocytes % 6.1(L) 18.0 - 42.0 % 09/06/2024 2:55 PM EST [facility] 56-02 Monocytes % 8.3 1.0 - 11.0 % 09/06/2024 2:55 PM EST [facility] 56 Eosinophils % 1.9 0.0 - 6.0 % 09/06/2024 2:55 PM EST [facility] 56 Basophils % 0.3 0.0 - 2.0 % 09/06/2024 2:55 PM EST [facility] 56 Absolute Neutrophils 6.44 1.80 - 7.70 K/uL 09/06/2024 2:55 PM EST [facility] 56 Absolute Lymphocytes 0.47(L) 1.00 - 4.80 K/ul 09/06/2024 2:55 PM EST [facility] 56 Absolute Monocytes 0.64 0.00 - 1.10 K/uL 09/06/2024 2:55 PM EST [facility] Absolute Eosinophils 0.15 0.00 - 0.70 K/uL 09/06/2024 2:55 PM EST [facility] Absolute Basophils 0.02 0.00 - 0.20 K/uL 09/06/2024 2:55 PM [facility] Blood Venous blood specimen / Unknown Central Line / Unknown 09/06/2024 2:38 PM EST 09/06/2024 2:52 PM EST us Flaquita Wilson MD LAB BLOOD ORDERABLES Fin al Result [facility] [address] [place] [address] * (ABNORMAL) CBC (09/06/2024 2:38 PM EST) Pathologist [facility] WBC 7.72 4.00 - 10.80 K/uL 09/06/2024 2:55 PM EST [facility] RBC 3.10 3.85 - 5.15 M/uL 09/06/2024 2:55 PM EST [facility] HGB 8.0(L) 12.0 - 15.3 g/dL 09/06/2024 2:55 PM EST [facility] HCT 26.6(L) 36.0 - 45.2 % 09/06/2024 2:55 PM EST [facility] 56 MCV 85.8 81.5 - 97.5 fL 09/06/2024 2:55 PM EST [facility] 56 MCH 25.8 27.0 - 34.0 pg 09/06/2024 2:55 PM EST [facility] MCHC 30.1 32.0 - 36.0 g/dL 09/06/2024 2:55 PM EST [facility] 56 RDW 16.9 11.5 - 15.5 % 09/06/2024 2:55 PM EST [facility] 56 PLT 376 140 - 400 K/uL 09/06/2024 2:55 PM EST [facility] MPV 8.3 6.6 - 11.1 fL 09/06/2024 2:55 PM EST [facility] Blood Venous blood specimen / Unknown Central Line / Unknown 09/06/2024 2:38 PM EST 09/06/2024 2:52 PM EST Flaquita Wilson MD LAB BLOOD ORDERABLES Fin al Result [facility] [address] [place] [address] * (ABNORMAL) COMPREHENSIVE METABOLIC PANEL (09/06/2024 2:38 PM EST) BUN 24(H) 6 - 20 mg/dL 09/06/2024 3:18 PM [facility] CREATININE 1.4(H) 0.5 - 1.0 mg/dL 09/06/2024 3:18 PM [facility] EGFR 42(L) >=60 mL/min 09/06/2024 3:18 PM [facility] 56 Comment:eGFR is calculated b ased on the CKD-EPI 2020 equation. SODIUM 140 135 - 146 mmol/L 09/06/2024 3:18 PM [facility] POTASSIUM 4.0 3.5 - 5.1 mmol/L 09/06/2024 3:18 PM [facility] 56 CHLORIDE 106 98 - 107 mmol/L 09/06/2024 3:18 PM [facility] 56 CO2 23 22 - 32 mmol/L 09/06/2024 3:18 PM [facility] 56 ANION GAP 11 7 - 15 mmol/L 09/06/2024 3:18 PM [facility] 56 GLUCOSE 111 70 - 120 mg/dL 09/06/2024 3:18 PM [facility] 56 Albumin 3.7(L) 3.8 - 5.0 g/dL 09/06/2024 3:18 PM [facility] 56 AST 12 10 - 35 U/L 09/06/2024 3:18 PM [facility] 56 Alkaline Phosphatase 75 35 - 130 U/L 09/06/2024 3:18 PM [facility] 56 Bilirubin, Total 0.2 <=1.2 mg/dL 09/06/2024 3:18 PM [facility] 56 CALCIUM 9.1 8.4 - 10.2 mg/dL 09/06/2024 3:18 PM [facility] 56 Protein 6.8 6.0 - 8.3 g/dL 09/06/2024 3:18 PM [facility] 56 ALT 14 10 - 35 U/L 09/06/2024 3:18 PM [facility] 56 Blood Venous blood specimen / Unknown Central Line / Unknown 09/06/2024 2:38 PM EST 09/06/2024 2:52 PM EST us Flaquita Wilson MD LAB BLOOD ORDERABLES Fin al Result [facility] [address]- [address] [place] [address] documented in this encounter Visit Diagnoses Diagnosis [...] mg, IV Piggyback, ONCE, 1 dose, On Fri09/06/24 at 1615, Administer over 90 MinutesIndications:Endomet rial cancer (HCC),Iron deficiency anemia due to chronic blood loss Start Infusion 09/06/2024 2:51 PM EST 300 mg 180 mL/hr NSS infusion 500 mL, Intravenous, at 50 mL/hr, CONTINUOUS, Starting on Fri09/06/24 at 1545, Until Fri09/06/24 at 204Indications:Endometria l cancer (HCC),Iron deficiency anemia due to chronic blood loss Start Infusion 09/06/2024 2:51 PM EST 50 mL/hr sodium chloride 0.9 % flush/inj 20 mL 20 mL, IV Push, PRN IV Flush and Lock, Starting on Fri09/06/24 at 1433, Until Fri09/06/24 at 2039, Do not flush if lock, PICC, or [...] anemia due to chronic blood loss Given 09/06/2024 4:32 PM EST 20 mL documented in this encounter Advance Directives * Full Code (Latest Code Status on File) Date Activated Date Inactivated Comments 02/19/2022 1:10 PM 02/19/2022 8:22 PM This order r eflects the patients wishes and were consensually agreed upon. Question Answer Comments Discussion of Advance Directives occurred with: Not Discussed Care Teams Branding Machine Tender Relationship Specialty Start Date End Date Lashawn Mejia MD [address] [place] [address] [place] [phone] PCP - General Family Medicine 09/22/20 documented as of this encounter
--- OUTSIDE RECORDS SUMMARY | 2024-10-01 03:25 | External Medical Summary | Summary of Care ---
Author Name Unknown Organization [facility] Address [address] [place] [address] Phone [phone] Care Team Providers Care Rubber Flap Tuber Machine Operator Name Role Phone Lashawn Mejia MD Primary Care Prov ider Reason for Visit * Reason Onset Date Comments Test Results Lab 09/07/2024 Encounter Details Date Type Department Care Team (Late st Contact Info) Description 09/07/2024 Telephone Hematology/Oncology [facility] 200 [facility] [place] [phone] Flaquita Wilson MD 200 [place] [address] Test Results Lab Allergies Active Allergy Reactions [...] required to determine if the biopsy if marketing development representative. B. 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 [...] 9:45 AM EST Pharmacy Pharmacy Hematology Oncology [place] [address] [place] [address] [facility] Hem/Onc [facility] [place] [address] 09/08/2024 11:00 AM EST Office Visit Palliative Medicine [address] [place] [phone] MD [address] [place] [address] 09/13/2024 8:45 AM EDT Hem/Onc Treatment Hematology/Oncology Treatment, [address], [place] [phone] Rosario, Chair 9 Hem Onc [address], [place] [address] 09/20/2024 7:50 AM EDT Laboratory Laboratory [facility] [place] [address] [place] [phone] Rosario, Lab [place] [address] [address] SU[place], [place] [address] 09/20/2024 8:30 AM EDT Office Visit Hematology/Oncology [facility] [place] [address] [place] [address] Belinda Christianson CRNP 400 [facility] [place] [phone] 09/20/2024 9:00 AM EDT Hem/Onc Treatment Hematology/Oncology Treatment, [place] [address] [place] [address] Park, Chair 6 Hem Onc Scenery [address] [place] [phone] 11/16/2024 8:45 AM EDT Telemedicine Genetics HemOnc, [facility] [address] [place] [phone] Nat Perez, [place] [address] [facility] [place] [address] 11/30/2024 9:00 AM EDT Office Visit [facility] [place] [phone] Silvia Holt CRNP 132 [facility] [address] 02/09/2025 9:00 AM EDT Office Visit Family [address] [phone] Lashawn Mejia MD [address] [place] [address] [place] [address] 03/02/2025 10:40 AM EDT Telemedicine Neurology [address] [place] [phone] Clif Mckeon MD 100 [address] [facility] [place] [address] Scheduled Orders Name Type Priority Associated Diagnoses [...] 023, 12/14/2020, 10/21/2007 CKD PHOS USE SMARTSET 00697 12/26/202312/06, 01/16/2016, 02/16/2015, Additional history exists HbA1c 12/26/2023 12/25/2022, 07/0 07/2021, 12/14/2020, Additional history exists Influenza Vaccine (FLU shot) (#1) 2024 05/14/2010 GFR 03/09/2025 09/06/2024, 08/08, 08/17/2024, Additional history exists TSH 08/30/2025 08/30/2024, 03/07, 02/06/2023, Additional history exists CKD HGB USE SMARTSET 27004 09/06/202509/06, 09/06/2024, 08/30/2024, Additional history exists Lipid [...] this encounter Medical Devices Implanted Type Area Application Integration Specialist Device Identifier Shelf Expiration Date Model / Serial / Lot Port Implant W8f Poly Cath - [id number] Implanted:Qty : 1 on 09/05/2023 by Orville Zendejas MD at [facility] Right: Chest CR BARD : PERIPHERAL VASCULAR [id number] 06/05/2024 [id number] / / [id number] documented as of this encounter Visit Diagnoses Diagnosis Anemia, unspecified type- Primary documented in this encounter Advance Directives * Full Code (Latest Code Status on File) Date Activated Date Inactivated Comments 02/19/2022 1:10 PM 02/19/2022 8:22 PM This order r eflects the patients wishes and were consensually agreed upon. Question Answer Comments Discussion of Advance Directives occurred with: Not Discussed Care Teams Rubber Flap Tuber Machine Operator Relationship Specialty Start Date End Date Lashawn Mejia MD [address] [place] [address] [place] [address] PCP - General Family Medicine 09/22/20 documented as of this encounter
--- OUTSIDE RECORDS SUMMARY | 2024-10-01 03:25 | External Medical Summary | Summary of Care ---
Author Name Unknown Organization [facility] Address [address] [place] [address] Phone [phone] Care Team Providers Care Healthcare Interpreter Name Role Phone Lashawn Mejia MD Primary Care Prov ider Reason for Visit * Reason Onset Date Comments Forms Request 09/06/2024 Js Spencer Encounter Details Date Type Department Care Team (Late st Contact Info) Description 09/06/2024 Telephone Hematology/Oncology [facility] 200 [place] [phone] Flaquita Wilson MD 200 [place] [address] Forms Request (Js Spencer) Allergies Active Allergy [...] required to determine if the biopsy if technology sales representative. B. 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 [place], [place] [phone] Rosario, Lab [facility] 200 [facility] [place], [place] [address] 09/20/2024 8:30 AM EDT Office Visit Hematology/Oncology [facility] [address] [place], [place] [phone] Belinda Christianson CRNP 400 [place] [address] 09/20/2024 9:00 AM EDT Hem/Onc Treatment Hematology/Oncology [address] [place] [phone] Rosario, Chair 6 Hem Onc [address]enery [address] [place] [address] 11/16/2024 8:45 AM EDT Telemedicine Genetics HemOnc, [facility] [address] [place] [address] Nat Perez, [place] [address] [place] [address] 11/30/2024 9:00 AM EDT Office Visit Sleep Disorders Ctr Jett Belcher [place] [address] [place] [phone] Silvia Holt CRNP [address] [place] [address] 02/09/2025 9:00 AM EDT Office Visit Family [address] [phone] Lashawn Mejia MD [address] [place] [address] [place] [address] 03/02/2025 10:40 AM EDT Telemedicine Neurology [place] [address] [place] [phone] Clif Mckeon MD [address] [place] [address] Scheduled Procedures Name Priority Associated Diagnoses [...] 023, 12/14/2020, 10/21/2007 CKD PHOS USE SMARTSET 13182 12/26/202312/06, 01/16/2016, 02/16/2015, Additional history exists HbA1c 12/26/2023 12/25/2022, 0707/2021, 12/14/2020, Additional history exists Influenza Vaccine (FLU shot) (#1) 2024 05/14/2010 GFR 03/09/2025 09/06/2024, 08/08, 08/17/2024, Additional history exists TSH 08/30/2025 08/30/2024, 03/07, 02/06/2023, Additional history exists CKD HGB USE SMARTSET 00179 09/06/202509/06, 09/06/2024, 08/30/2024, Additional history exists Lipid [...] this encounter Medical Devices Implanted Type Area Traffic Engineering Technician Device Identifier Shelf Expiration Date Model / Serial / Lot Port Implant W8f Poly Cath - [id number] Implanted:Qty : 1 on 09/05/2023 by Orville Zendejas MD at [facility] Right: Chest CR BARD : PERIPHERAL VASCULAR [id number] 06/05/2024 [id number] / / [id number] documented as of this encounter Advance Directives * Full Code (Latest Code Status on File) Date Activated Date Inactivated Comments 02/19/2022 1:10 PM 02/19/2022 8:22 PM This order r eflects the patients wishes and were consensually agreed upon. Question Answer Comments Discussion of Advance Directives occurred with: Not Discussed Care Teams Healthcare Interpreter Relationship Specialty Start Date End Date Lashawn Mejia MD [address] [place] [address] [place] [phone] PCP - General Family Medicine 09/22/20 documented as of this encounter
--- OUTSIDE RECORDS SUMMARY | 2024-10-01 03:25 | External Medical Summary ---
Author Name Unknown Address Unknown Organization K01:LABORATORY [facility] - [address] [facility] [address] Laboratory Report Ordering Provider Test Date Status BROCK BURNHAM 09/06/2024 14:38:44 Final Observation Date Value Abnormality Reference (Units ) Status Ferritin 09/06/2024 14:38:44 145 13-150 (ng /mL) Final Postmenopausal women have hi gher ferritin levels than pre-menopausal women. The above reference interval is based on pre-menopausal women. Performing Location [facility] [address] [facility] [facility] [address]
--- OUTSIDE RECORDS SUMMARY | 2024-10-01 03:25 | External Medical Summary ---
Author Name Unknown Address Unknown Organization K01:[facility] [place] [facility] [address] [facility] [facility] [address] Laboratory Report Ordering Provider Test Date Status BROCK BURNHAM 09/06/2024 14:38:44 Final Observation Date Value Abnormality Reference (Units ) Status Folic Acid 09/06/2024 14:38:44 8.7 >4.5 (ng/ mL) Final Performing Location LABORATORY [facility] - [address] [place] [address]
--- OUTSIDE RECORDS SUMMARY | 2024-10-01 03:25 | External Medical Summary ---
Author Name Unknown Address Unknown Organization K01:[facility]ORY [facility] - [address] [place] [address] Laboratory Report Ordering Provider Test Date Status BROCK BURNHAM 09/06/2024 14:38:44 Final Observation Date Value Abnormality Reference (Units ) Status Iron 09/06/2024 14:38:44 25 Below low normal 33-151 (ug/dL) Final Iron-binding capacity 09/06/2024 14:38:44 253 250-425 (ug/dL) Final Transferrin Sat % 09/06/2024 14:38:44 10 Below low normal 15-55 (%) Final Performing Location [facility] [place] [place] - [address] [place] [address]
--- OUTSIDE RECORDS SUMMARY | 2024-10-01 03:25 | External Medical Summary | Summary of Care ---
Author Name Unknown Organization [facility] Address [address] [place] [address] Phone [phone] Care Team Providers Care Space Physicist Name Role Phone Lashawn Mejia MD Primary Care Prov ider Reason for Visit * Reason Onset Date Comments Precert Future 08/17/2024 Keytruda/Lenvima Encounter Details Date Type Department Care Team (Late st Contact Info) Description 08/17/2024 Telephone Hematology/Oncology [facility] [address] [place] [phone] Flaquita Wilson MD [address] [place] [address] Precert Future (Keytruda/Lenvima ) Allergies Active Allergy Reactions Criticality Noted Date [...] PRIOR TO ACCESSING. 30 g 1 09/08/19 Active Additional Information Patient not taking.Reported on [...] rectum at bedtime. 12 Suppository 3 07/21/19 Active Additional Information Patient not taking.Reported on 08/27/2024 Lisinopril 5 MG Oral Tablet (Prinivil)Indicat ions:HTN, goal below 140/90 Take by mouth 1 Tablet in the morning. 90 Tablet 1 12/19/19 23 025 Disconti nued(Ref ill) dexAMETHasone 4 MG Oral TabletIndications :Endometrial cancer (HCC) Take 5 tab (20 mg) 12 and 6 hours before chemo 60 Tablet 08/26/19 24 025 Disconti nued(Med ication List Clean Up) Nortriptyline HCl 25 MG Oral Capsule (Pamelor)Indicati ons:Chemotherapy- induced peripheral neuropathy (HCC) Take 1 Capsule by mouth at bedtime. Do not start before May 06, 2024. 30 Capsule 5 05/06/20 24 025 Disconti nued(Med ication/ Dose Changed) clonazePAM 0.5 MG Oral Tablet (KlonoPIN)Indicat ions:RLS (restless legs syndrome) Take 1-2 tablets per mouth at bedtime. 60 Tablet 2 04/29/20 24 025 Disconti nued(Ref ill) Nitrofurantoin Monohyd Macro 100 MG Oral Capsule (Macrobid) Take 1 Capsule by mouth in the morning and 1 Capsule before bedtime. Do all this for 7 days. With food until gone. 14 Capsule 04/29/20 24 025 Disconti nued(Med ication List Clean Up) Ciprofloxacin HCl 250 MG Oral Tablet (Cipro) Take 1 Tablet by mouth in the morning and 1 Tablet before bedtime. Do all this for 5 days. 10 Tablet 05/20/20 24 025 Disconti nued(Med ication List Clean Up) Nitrofurantoin Monohyd Macro 100 MG Oral Capsule (Macrobid)Indicat ions:Urine frequency,Mixed incontinence urge and stress (male)(female),He maturia, unspecified type Take 1 Capsule by mouth in the morning and 1 Capsule before bedtime. Do all this for 7 days. With food until gone. 14 Capsule 06/08/20 24 025 Disconti nued(Med ication List Clean Up) oxyBUTYnin Chloride ER 5 MG Oral Tablet Extended Release 24 Hour (Ditropan XL) Take 1 Tablet by mouth in the morning. 30 Tablet 11 07/01/20 24 025 Disconti nued(Med ication/ Dose Changed) rOPINIRole HCl 3 MG Oral TabletIndications :Restless legs syndrome Take 1 Tablet by mouth in the morning and 1 Tablet at noon and 1 Tablet in the evening and 1 Tablet before bedtime. 120 Tablet 3 07/29/19 25 025 Disconti nued(Ref ill) oxyCODONE-Acetami nophen 5-325 MG Oral Tablet (Percocet)Indicat ions:Endometrial cancer (HCC) Take 1 Tablet by mouth every 4 hours as needed for Pain, Moderate. 30 Tablet 08/17/19 25 025 Disconti nued(Ref ill) documented as [...] required to determine if the biopsy if packaging sales representative. B. 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 * Telephone Encounter - Bouchra Webster RN - 08/30/2024 9:00 AM EST Referral entered, lenvima can be filled at [facility] Specialty. * Telephone Encounter - Bouchra Webster RN - 08/30/2024 7:32 AM EST Lenvima auth still in process. * Telephone Encounter - Anabella Rene OSA - 08/27/2024 1:57 PM EST Pt is on the schedule for Friday and is aware * Telephone Encounter - Bouchra Webster RN - 08/27/2024 1:40 PM EST [facility] spoke to patient- she would like to be scheduled. Scheduling: please contact patient to schedule - labs "CBCd, CMP, TSH/T4"- can be day of or day prior - 2 hour appt "C1D1 keytruda" (Steve) Thanks! * Telephone Encounter - Ginette Carias OSA - 08/27/2024 1:28 PM EST Was sent to [facility] yesterday. MAC assistance completed * Telephone Encounter - Ginette Carias OSA - 08/26/2024 12:56 PM EST Assistance was applied for with Tim on 08/24-still in progress. When complete we can send to [facility] * Telephone Encounter - Bouchra Webster RN - 08/26/2024 10:56 AM EST Nurse education complete. Echo/ EKG today. Patient would like to know OOP costs before scheduling keytruda. Copay assistance in process. [facility]: can you please advise? Was patient approved for copay assistance? What is OOP cost estimate? Thanks! * Telephone Encounter - Bouchra Webster RN - 08/25/2024 8:33 AM EST Note from [facility] not available. Called patient- she states that her visit went well, they agreed withplan for keytruda/ lenvima. * Telephone Encounter - Chris Bazzi RN - 08/23/2024 3:59 PM EST Referral entered. * Telephone Encounter - Chris Bazzi RN - 08/17/2024 12:19 PM EST Orders received, plan built and routed. Pt is going for 2nd opinion at [facility] on 08/24 -- need to follow up on office visit note to see if they are in agreeable with the current plan. Awaiting auth. [facility] regarding orders for Lenvima. -Chemo Consent: 08/17/24 -Chemo Education: Not Scheduled- pt is having second opinion on 08/24. -Port Placement: Already placed -Standing Lab orders placed: CBCD,CMP,TSH/T4 -Medications Pended: Pt previously prescribed Zofran -Hep B Labs: Completed 08/27/23 documented in this encounter Plan of Treatment Upcoming Encounters Date Type Department Care Team (Late st Contact Info) Description 09/08/2024 9:45 AM EST Pharmacy Pharmacy Hematology Oncology [facility] [address] [place] [address] [facility] Hem/Onc [facility] [place] [address] 09/08/2024 11:00 AM EST Office Visit Palliative Medicine [address] [place] [phone] MD [address] [place] [address] 09/13/2024 8:45 AM EDT Hem/Onc Treatment Hematology/Oncology Treatment, [address], [place] [phone] Rosario, Chair 9 Hem Onc [address] [address] 09/20/2024 7:50 AM EDT Laboratory Laboratory [facility] [address] [place] [phone] Rosario, Lab [address] [place], [place] [address] 09/20/2024 8:30 AM EDT Office Visit Hematology/Oncology [address] [place] [phone] Belinda Christianson CRNP [address] [place], [place] [phone] 09/20/2024 9:00 AM EDT Hem/Onc Treatment Hematology/Oncology Treatment, [place] [address] [place] [address] Rosario, Chair 6 Hem Onc [address]en[address] [facility] [address] 11/16/2024 8:45 AM EDT Telemedicine Genetics HemOnc, [facility] [address] [place] [address] Nat Perez, [place] [address] [place] [id number] 11/30/2024 9:00 AM EDT Office Visit Sleep Disorders Ctr [facility] [address] [place] [address] Silvia Holt CRNP [address] [place] [address] 02/09/2025 9:00 AM EDT Office Visit Family Medicine [address] [phone] Lashawn Mejia MD [address] [place] [address] [place] [address] 03/02/2025 10:40 AM EDT Telemedicine Neurology Titi [...] 023, 12/14/2020, 10/21/2007 CKD PHOS USE SMARTSET 79554 12/26/202312/06, 01/16/2016, 02/16/2015, Additional history exists HbA1c 12/26/2023 12/25/2022, 07/07/2021, 12/14/2020, Additional history exists Influenza Vaccine (FLU shot) (#1) 2024 05/14/2010 GFR 03/09/2025 09/06/2024, 08/08, 08/17/2024, Additional history exists TSH 08/30/2025 08/30/2024, 03/07, 02/06/2023, Additional history exists CKD HGB USE SMARTSET 07274 09/06/202509/06, 09/06/2024, 08/30/2024, Additional history exists Lipid [...] this encounter Medical Devices Implanted Type Area Sand Mixer Device Identifier Shelf Expiration Date Model / Serial / Lot Port Implant W8f Poly Cath - [id number] Implanted:Qty : 1 on 09/05/2023 by Orville Zendejas MD at [facility] Right: Chest CR BARD : PERIPHERAL VASCULAR [id number] 06/05/2024 [id number] / / [id number] documented as of this encounter Advance Directives * Full Code (Latest Code Status on File) Date Activated Date Inactivated Comments 02/19/2022 1:10 PM 02/19/2022 8:22 PM This order r eflects the patients wishes and were consensually agreed upon. Question Answer Comments Discussion of Advance Directives occurred with: Not Discussed Care Teams Space Physicist Relationship Specialty Start Date End Date Lashawn Mejia MD [address] [place] [address] [place] [phone] PCP - General Family Medicine 09/22/20 documented as of this encounter
--- OUTSIDE RECORDS SUMMARY | 2024-10-01 03:25 | External Medical Summary ---
Author Name Unknown Address Unknown Organization K01:LAB[facility]ATORY [facility] - [address] [facility] [address] Laboratory Report Ordering Provider Test Date Status BROCK BURNHAM 09/06/2024 14:38:44 Final Observation Date Value Abnormality Reference (Units ) Status Retic, % (auto) 09/06/2024 14:38:44 2.92 Above high normal 0.80-1.90 (%) Final Reticulocytes, Absolute 09/06/2024 14:38:44 90.5 31.3-100.1 (K/uL) Final Reticulocyte fraction, immature 09/06/2024 14:38:44 38.0 Above high normal 2.5-20.6 (%) Final Reticulocyte HGB 09/06/2024 14:38:44 24.4 Below low normal 29.7-37.4 (pg) Final Performing Location LAB[facility] - [address] [facility] [address]
--- OUTSIDE RECORDS SUMMARY | 2024-10-01 03:25 | External Medical Summary | Summary of Care ---
Author Name Unknown Organization [facility] Address [address] [place] [address] Phone [phone] Care Team Providers Care Electrical Logging Engineer Name Role Phone Lashawn Mejia MD Primary Care Prov ider Encounter Details Date Type Department Care Team (Late st Contact Info) Description 09/06/2024 Documentation Genetics HemOnc, [facility] [address] [place] [address] Kae Louis, [place] [address] [place] [address] Genetic screening* Allergies Active Allergy Reactions Criticality Noted Date Comments Gabapentin Neuro complications (Please comment),Tachycardia 02/06/2023 Hallucinations documented as of this encounter (statuses as of 09/06/2024) Medications Ondansetron HCl 8 MG Oral TabletIndications [...] as of this encounter (statuses as of 09/06/2024) Active Problems Problem Noted Date Diagnosed Date Encounter for antineoplastic chemotherapy 2023 Vulvar irritation 05/12/2023 Overview (05/12/2023): BIOPSY (05/06/2023) -- BENIGN A. Skin, right vulva, biopsy: Benign mature sebaceous glands with minimal inflammation. Negative for dysplasia and malignancy. Comment: The findings are non-specific, although sebaceous hyperplasia was considered. Clinical correlation is required to determine if the biopsy if u.s. representative. B. Skin, left vulva, biopsy: Mild [...] as of this encounter (statuses as of 09/06/2024) Resolved Problems Problem Noted Date Diagnosed Date [...] as of this encounter (statuses as of 09/06/2024) Immunizations Name Administration Dates Next Due Seasonal [...] as of this encounter Progress Notes * Kae Louis, MS - 09/06/2024 11:02 AM EST Cancer Genetics Risk Assessment Clinic at [facility] E-Consult: Review of Tumor Sequencing for Germline Testing Candidates Summary & Recommendation: Genetics evaluation scheduled 11/2024 . While no variants on this test were reported suggestive of inherited cancer risk, some findings maybe filtered out based on population frequency, reversion to WT, or allelic dropout among other technical limitations common with NGS. Up to 15% of BRCA1/2 and up to 33% of Paul variants are not detectable through NGS technology and may be missed on this testing. Per Chart Review HPI: Lissette is a 59 year old female with a diagnosis of FIGO 2 endometrial adenocarcinoma in 2021 - The malignancy is MSI-Stable, Intact Mismatch Repair Proteins, and Low TMB. - Prior Germline Testing: No - There is a family history of cancer, but is not suggestive of an inherited cancer syndrome. Family History Problem Relation Name Age of Onset Cancer Mother laryngeal Cancer Father prostate Cancer Mother noemi san MyGenVar Tumor Sequencing Panel was completed in 08/2024. Note: Review for germline workup is only performed on findings with an associated hereditary cancersyndrome. In general, copy number variation >2 is not of germline concern. Gene Variant Name VAF% Variant Classification ARID1A E2246* 30.80% Tier 2: Potential significance CTNNB1 D32Y 35.40% Tier 2: Potential significance PIK3CA Y8566F 36.50% Tier 2: Potential significance ERBB2 ERBB2 CN 8.9 Tier 2: Potential significance ATR X1202W 32.80% Tier 3: Unknown clinical significance ARID1A ARID1A CN 6 Tier 3: Unknown clinical significance FANCF FANCF CN 11.8 Tier 3: Unknown clinical significance Unless highlighted in red, the above findings were reviewed and not of germline concern. Kae Louis MS, [facility] - Licensed, Certified Genetic Counselor 09/06/2024, 11:02 AM documented in this encounter Plan of Treatment Upcoming Encounters Date Type Department Care Team (Late st Contact Info) Description 09/08/2024 11:00 AM EST Office Visit Palliative Medicine [facility] [address] [place] [phone] MD [address] [place] [address] [place] [address] 09/13/2024 8:45 AM EDT Hem/Onc Treatment Hematology/Oncology Treatment, [address] [place] [phone] Rosario, Chair 9 Hem On[address] [place] [address] 09/20/2024 7:50 AM EDT Laboratory Laboratory [facility] [address] [place] [phone] Luis Ponce [address] [place] [address] 09/20/2024 8:30 AM EDT Office Visit Hematology/Oncology [facility] [place] [address] [place] [phone] Belinda Christianson CRNP [address] [facility] [place] [address] 09/20/2024 9:00 AM EDT Hem/Onc Treatment Hematology/Oncology Treatment, [place] [address] [place], [place] [address] Rosario, Chair 6 Hem Onc [address] [place] [address] 11/16/2024 8:45 AM EDT Telemedicine Genetics HemOnc, [facility] [address] [place] [address] Nat Perez, [place] [address] [facility] [place] [address] 11/30/2024 9:00 AM EDT Office Visit [facility] Disorders C[facility] [place] [phone] Silvia Holt CRNP 132 [facility] [place] [address] 02/09/2025 9:00 AM EDT Office Visit Family Medicine [address] [place] [phone] Lashawn Mejia MD [address] [place] [address] [place] [address] 03/02/2025 10:40 AM EDT Telemedicine Neurology [address] [place] [phone] Clif Mckeon MD [address] [place] [address] Scheduled Procedures Name Priority Associated Diagnoses Date/Ti [...] 023, 12/14/2020, 10/21/2007 CKD PHOS USE SMARTSET 91429 12/26/202312/06, 01/16/2016, 02/16/2015, Additional history exists HbA1c 12/26/2023 12/25/2022, 07/0 07/2021, 12/14/2020, Additional history exists Influenza Vaccine (FLU shot) (#1) 2024 05/14/2010 GFR 03/09/2025 09/06/2024, 08/08, 08/17/2024, Additional history exists TSH 08/30/2025 08/30/2024, 03/07, 02/06/2023, Additional history exists CKD HGB USE SMARTSET 20725 09/06/202509/06, 09/06/2024, 08/30/2024, Additional history exists Lipid [...] this encounter Medical Devices Implanted Type Area Drum Stenciler Device Identifier Shelf Expiration Date Model / Serial / Lot Port Implant W8f Poly Cath - [id number] Implanted:Qty : 1 on 09/05/2023 by Orville Zendejas MD at [facility] Right: Chest CR BARD : PERIPHERAL VASCULAR [id number] 06/05/2024 [id number] / / [id number] documented as of this encounter Visit Diagnoses Diagnosis Genetic screening- Primary Other genetic screening documented in this encounter Advance Directives * Full Code (Latest Code Status on File) Date Activated Date Inactivated Comments 02/19/2022 1:10 PM 02/19/2022 8:22 PM This order r eflects the patients wishes and were consensually agreed upon. Question Answer Comments Discussion of Advance Directives occurred with: Not Discussed Care Teams Electrical Logging Engineer Relationship Specialty Start Date End Date Lashawn Mejia MD [address] [place] [address] [place] [address] PCP - General Family Medicine 09/22/20 documented as of this encounter
--- OUTSIDE RECORDS SUMMARY | 2024-10-01 03:25 | External Medical Summary | Summary of Care ---
Author Name Unknown Organization [facility] Address [address] [place] [address] Phone [phone] Care Team Providers Care Sample Grinder Name Role Phone Lashawn Mejia MD Primary Care Prov ider Reason for Visit * Reason Onset Date Comments Forms Request 09/06/2024 Js Spencer Encounter Details Date Type Department Care Team (Late st Contact Info) Description 09/06/2024 Telephone Hematology/Oncology [facility] [address] [place] [phone] Flaquita Wilson MD [address] [place] [address] Forms Request (Js Spencer) Allergies Active Allergy [...] required to determine if the biopsy if key account representative. B. 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 [...] 9:45 AM EST Pharmacy Pharmacy Hematology Oncology [address] [address] [facility] Hem/Onc [address] [place] [address] 09/08/2024 11:00 AM EST Office Visit Palliative Medicine [address] [place] [phone] [address] MD [address] [place] [address] 09/13/2024 8:45 AM EDT Hem/Onc Treatment Hematology/Oncology [address], [place] [phone] Rosario, Chair 9 Hem Onc [address] [place] [address] 09/20/2024 7:50 AM EDT Laboratory Laboratory [address] [place] [phone] Rosario, Lab [address] [place], [place] [address] 09/20/2024 8:30 AM EDT Office Visit Hematology/Oncology [address] [place] [phone] Belinda Christianson CRNP [address] [place] [address] 09/20/2024 9:00 AM EDT Hem/Onc Treatment Hematology/Oncology Treatment, [address], [place] [phone] Rosario, Chair 6 Hem Onc [address] [place] [address] 11/16/2024 8:45 AM EDT Telemedicine Genetics HemOnc, [facility] [address] [facility] [place] [address] Nat Perez, [place] [address] [facility] [place] [address] 11/30/2024 9:00 AM EDT Office Visit Sleep Disorders Ctr [facility] [address] [place] [phone] Silvia Holt CRNP [address] [place] [address] 02/09/2025 9:00 AM EDT Office Visit Family Medicine [address] [place] [phone] Lashawn Mejia MD [address] [place] [address] [place] [address] 03/02/2025 10:40 AM EDT Telemedicine Neurology [address] [address] [place] [address] [place] [address] Clif Mckeon MD [address] [facility] [place] [id number] Scheduled Procedures Name Priority Associated Diagnoses Date/Ti [...] 023, 12/14/2020, 10/21/2007 CKD PHOS USE SMARTSET 21739 12/26/202312/06, 01/16/2016, 02/16/2015, Additional history exists HbA1c 12/26/2023 12/25/2022, 07/0 07/2021, 12/14/2020, Additional history exists Influenza Vaccine (FLU shot) (#1) 2024 05/14/2010 GFR 03/09/2025 09/06/2024, 08/08, 08/17/2024, Additional history exists TSH 08/30/2025 08/30/2024, 03/07, 02/06/2023, Additional history exists CKD HGB USE SMARTSET 77443 09/06/202509/06, 09/06/2024, 08/30/2024, Additional history exists Lipid [...] this encounter Medical Devices Implanted Type Area Splunk Developer Device Identifier Shelf Expiration Date Model / Serial / Lot Port Implant W8f Poly Cath - [id number] Implanted:Qty : 1 on 09/05/2023 by Orville Zendejas MD at [facility] Right: Chest CR BARD : PERIPHERAL VASCULAR [id number] 06/05/2024 [id number] / / [id number] documented as of this encounter Advance Directives * Full Code (Latest Code Status on File) Date Activated Date Inactivated Comments 02/19/2022 1:10 PM 02/19/2022 8:22 PM This order r eflects the patients wishes and were consensually agreed upon. Question Answer Comments Discussion of Advance Directives occurred with: Not Discussed Care Teams Sample Grinder Relationship Specialty Start Date End Date Lashawn Mjeia MD [address] [place] [address] [place] [phone] PCP - General Family Medicine 09/22/20 documented as of this encounter
--- OUTSIDE RECORDS SUMMARY | 2024-10-01 03:25 | External Medical Summary | Summary of Care ---
Author Name Unknown Organization [facility] Address [address] [place] [address] Phone [phone] Care Team Providers Care Contract Designer Name Role Phone Lashawn Mejia MD Primary Care Prov ider Reason for Visit * Reason Onset Date Comments Medication Update 09/01/2024 Encounter Details Date Type Department Care Team (Late st Contact Info) Description 09/01/2024 Telephone Hematology/Oncology, [facility] [address] [place] [address] Flaquita Wislon MD [address] [place], [place] [phone] Medication Update Allergies Active Allergy Reactions Criticality Noted Date [...] 60 Each 5 025 Active Nortriptyline HCl 25 MG Oral Capsule (Pamelor)Indicati ons:Chemotherapy- induced peripheral neuropathy (HCC) Take 1 Capsule by mouth at bedtime. Do not start before May 06, 2024. 30 Capsule 5 024 2024 Disconti nued(Med ication/ Dose Changed) oxyBUTYnin Chloride ER 5 MG Oral Tablet Extended Release 24 Hour (Ditropan XL) Take 1 Tablet by mouth in the morning. 30 Tablet 11 024 2024 Disconti nued(Med ication/ Dose Changed) documented as of this encounter (statuses as [...] required to determine if the biopsy if patient accounting representative. B. 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 Not on file Not on file documented as of this encounter Miscellaneous Notes * Telephone Encounter - Michelle Antoine OSA - 09/06/2024 2:19 PM EST Spoke with [facility] Medication is scheduled to be delivered on 09/08 [facility] [employer] Technician Pharmacy Hematology Oncology Oral Chemotherapy Clinic Medication Therapy Disease Management [facility] 09/06/24 2:19 PM * Telephone Encounter - Michelle Antoine OSA - 09/01/2024 11:05 AM EST MEDICATION THERAPY MANAGEMENT LENVATINIB TREATMENT STATUS NOTE Lissette CARY [phone] Patient Phone Numbers Communication: Specialty Pharmacy Update Treatment: Medication: Lenvatinib (Lenvima) Indication/Staging/Diagnosis Code: endometrial cancer / C54.1 Dose: 20mg daily Administration: +/- food Start Date: TBD Primary Hat Forming Machine Feeder/Oncologist: Dr. Wilson Lenvima 20mg order is scheduled for delivery at this time; shipment pending. [facility] Online Provider Portal [facility] [employer] Technician Pharmacy Hematology Oncology Oral Chemotherapy Clinic Medication Therapy Disease Management [facility] 09/01/24 11:06 AM Time Spent on Encounter: < 5 minutes documented in this encounter Plan of Treatment Upcoming Encounters Date Type Department Care Team (Late st Contact Info) Description 09/08/2024 9:45 AM EST Pharmacy Pharmacy Hematology Oncology [facility] [address] [place] [address] [facility] Hem/Onc [address] [place] [address] 09/08/2024 11:00 AM EST Office Visit Palliative Medicine [facility] [address] [place] [address] MD [address] [place] [address] 09/13/2024 8:45 AM EDT Hem/Onc Treatment Hematology/Oncology Treatment, [address] [address] Rosario, Chair 9 Hem Onc [address] [place] [address] 09/20/2024 7:50 AM EDT Laboratory Laboratory [address] [place] [address] Rosario, Lab Scenery [address] [facility] [place] [address] 09/20/2024 8:30 AM EDT Office Visit Hematology/Oncology [facility] [address] [place] [phone] Belinda Christianson CRNP 400 [facility] [place] [address] 09/20/2024 9:00 AM EDT Hem/Onc Treatment Hematology/Oncology Treatment, [place] [facility] [address] Rosario, Chair 6 Hem Onc Scenery [address] [place] [address] 11/16/2024 8:45 AM EDT Telemedicine Genetics HemOnc, [facility] [address] [place] [address] [place], [place] [address] [place] [address] 11/30/2024 9:00 AM EDT Office Visit Sleep Disorders Ctr [facility] 132 [facility] [place] [phone] Silvia Holt CRNP 132 [facility] [place] [address] 02/09/2025 9:00 AM EDT Office Visit Family Medicine [address] [place] [phone] Lashawn Mejia MD [address] [place] [address] [place] [address] 03/02/2025 10:40 AM EDT Telemedicine Neurology [place] [phone] Clif Mckeon MD [address] [facility] [place] [address] Scheduled Procedures Name [...] 023, 12/14/2020, 10/21/2007 CKD PHOS USE SMARTSET 25985 12/26/202312/06, 01/16/2016, 02/16/2015, Additional history exists HbA1c 12/26/2023 12/25/2022, 07/0 07/2021, 12/14/2020, Additional history exists Influenza Vaccine (FLU shot) (#1) 2024 05/14/2010 GFR 03/09/2025 09/06/2024, 08/08, 08/17/2024, Additional history exists TSH 08/30/2025 08/30/2024, 03/07, 02/06/2023, Additional history exists CKD HGB USE SMARTSET 43891 09/06/202509/06, 09/06/2024, 08/30/2024, Additional history exists Lipid [...] encounter Medical Devices Implanted Type Area Manager Rail Device Identifier Shelf Expiration Date Model / Serial / Lot Port Implant W8f Poly Cath - [id number] Implanted:Qty : 1 on 09/05/2023 by Orville Zendejas MD at [facility] Right: Chest CR BARD : PERIPHERAL VASCULAR [id number] 06/05/2024 [id number] / / [id number] documented as of this encounter Advance Directives * Full Code (Latest Code Status on File) Date Activated Date Inactivated Comments 02/19/2022 1:10 PM 02/19/2022 8:22 PM This order r eflects the patients wishes and were consensually agreed upon. Question Answer Comments Discussion of Advance Directives occurred with: Not Discussed Care Teams Contract Designer Relationship Specialty Start Date End Date Lashawn Mejia MD [address] [place] [address] [place] [address] PCP - General Family Medicine 09/22/20 documented as of this encounter
--- OUTSIDE RECORDS SUMMARY | 2024-10-01 03:25 | External Medical Summary ---
Author Name Unknown Address Unknown Organization K01:[facility] [place] [address] [place] [address] Laboratory Report Ordering Provider Test Date Status BROCK BURNHAM 09/06/2024 14:38:44 Final Observation Date Value Abnormality Reference (Units ) Status Vitamin B12 09/06/2024 14:38:44 192 Below low normal 2 32-1245 (pg/mL) Final Performing Location LABORATORY C - [address] [place] [address]
--- OUTSIDE RECORDS SUMMARY | 2024-10-01 03:25 | External Medical Summary ---
Author Name Unknown Address Unknown Organization K09:[facility]ORY [place] [address] Laboratory Report Ordering Provider Test Date Status BROCK BURNHAM 09/06/2024 14:38:44 Final Observation Date Value Abnormality Reference (Units ) Status WBC, Total 09/06/2024 14:38:44 7.72 4.00-10.8 0 (K/uL) Final RBC 09/06/2024 14:38:44 3.10 3.85-5.15 (M/uL) Final Hemoglobin 09/06/2024 14:38:44 8.0 Below low normal 12 .0-15.3 (g/dL) Final HCT 09/06/2024 14:38:44 26.6 Below low normal 36. 0-45.2 (%) Final MCV 09/06/2024 14:38:44 85.8 81.5-97.5 (fL) Final MCH 09/06/2024 14:38:44 25.8 27.0-34.0 (pg) Final MCHC 09/06/2024 14:38:44 30.1 32.0-36.0 (g/dL) Final RDW 09/06/2024 14:38:44 16.9 11.5-15.5 (%) Final Platelets 09/06/2024 14:38:44 376 140-400 (K /uL) Final MPV 09/06/2024 14:38:44 8.3 6.6-11.1 ( fL) Final Performing Location [facility] [place] [address]
--- OUTSIDE RECORDS SUMMARY | 2024-10-01 03:26 | External Medical Summary | Summary of Care ---
Author Name Unknown Organization [facility] Address [address] [place] [address] Phone [phone] Care Team Providers Care Propellant Charge Loader Name Role Phone Lashawn Mejia MD Primary Care Prov ider Encounter Details Date Type Department Care Team (Late st Contact Info) Description 09/05/2024 Orders Only Hematology/Oncology, [facility] [address] [place], [place] [phone] Flaquita Wilson MD [address] [place] [address] Allergies Active Allergy Reactions Criticality Noted Date Comments Gabapentin Neuro complications (Please comment),Tachycardia 02/06/2023 Hallucinations documented as of this encounter (statuses as of 09/05/2024) Medications Ondansetron HCl 8 MG Oral TabletIndications [...] as of this encounter (statuses as of 09/05/2024) Active Problems Problem Noted Date Diagnosed Date Encounter for antineoplastic chemotherapy 2023 Vulvar irritation 05/12/2023 Overview (05/12/2023): BIOPSY (05/06/2023) -- BENIGN A. Skin, right vulva, biopsy: Benign mature sebaceous glands with minimal inflammation. Negative for dysplasia and malignancy. Comment: The findings are non-specific, although sebaceous hyperplasia was considered. Clinical correlation is required to determine if the biopsy if abrasives sales representative. B. Skin, left vulva, biopsy: [...] as of this encounter (statuses as of 09/05/2024) Resolved Problems Problem Noted Date Diagnosed Date [...] as of this encounter (statuses as of 09/05/2024) Immunizations Name Administration Dates Next Due Seasonal [...] Team (Late st Contact Info) Description 09/06/2024 1:15 PM EST Pharmacy Pharmacy Hematology Oncology [place] [address] [place] [address] [facility] Hem/Onc [address] [place] [address] 09/06/2024 2:30 PM EST Hem/Onc Treatment Hematology/Oncology Treatment, [place] [address] [place] [address] Rosario, Chair 2 Hem Onc Scenery [address] [place] [address] 09/08/2024 11:00 AM EST Office Visit Palliative Medicine [facility] [place] 200 [facility], [place] [phone] MD [address] [place], [place] [phone] 09/13/2024 8:45 AM EDT Hem/Onc Treatment Hematology/Oncology [address], [place] [phone] Rosario, Chair 9 Hem Onc [address] [place] [address] 09/20/2024 7:50 AM EDT Laboratory Laboratory [facility] [address] [place] [phone] Rosario, Lab [address] [facility] [place] [address] 09/20/2024 8:30 AM EDT Office Visit Hematology/Oncology [address] [place], [place] [phone] Belinda Christianson CRNP [address] [place], [place] [phone] 09/20/2024 9:00 AM EDT Hem/Onc Treatment Hematology/Oncology [address], [place] [phone] Rosario, Chair 6 Hem Onc [address] [place], [place] [address] 11/16/2024 8:45 AM EDT Telemedicine Genetics HemOnc, [facility] [address] [place] [address] Nat Perez, [place] [address] [facility] [place] [address] 11/30/2024 9:00 AM EDT Office Visit Sleep Disorders Ctr [facility] [address] [place] [address] Silvia Holt CRNP [address] [place] [address] 02/09/2025 9:00 AM EDT Office Visit Family Medicine [address] [phone] Lashawn Mejia MD [address] [place] [address] [place] [address] 03/02/2025 10:40 AM EDT Telemedicine Neurology [place] [address] [place] [address] Clif Mckeon MD [address] [facility] [place] [address] Scheduled Procedures Name Priority Associated Diagnoses [...] 023, 12/14/2020, 10/21/2007 CKD PHOS USE SMARTSET 97688 12/26/202312/062023, 01/16/2016, 02/16/2015, Additional history exists HbA1c 12/26/2023 12/25/2022, 0707/2021, 12/14/2020, Additional history exists Influenza Vaccine (FLU shot) (#1) 2024 05/14/2010 GFR 02/27/2025 08/30/2024, 08/07, 08/04/2024, Additional history exists CKD HGB USE SMARTSET 61149 08/30/202508/30, 08/30/2024, 08/17/2024, Additional history exists TSH 08/30/2025 08/30/2024, 03/07, 02/06/2023, Additional history exists Lipid Panel 01/04/2027 01/04/2022, [...] this encounter Medical Devices Implanted Type Area Specification Writer Device Identifier Shelf Expiration Date Model / Serial / Lot Port Implant W8f Poly Cath - [id number] Implanted:Qty : 1 on 09/05/2023 by Orville Zendejas MD at OR [facility] Right: Chest CR BARD : PERIPHERAL VASCULAR [id number] 06/05/2024 [id number] / / [id number] documented as of this encounter Advance Directives * Full Code (Latest Code Status on File) Date Activated Date Inactivated Comments 02/19/2022 1:10 PM 02/19/2022 8:22 PM This order r eflects the patients wishes and were consensually agreed upon. Question Answer Comments Discussion of Advance Directives occurred with: Not Discussed Care Teams Propellant Charge Loader Relationship Specialty Start Date End Date Lashawn Mejia MD [address] [place] [address] [place] [address] PCP - General Family Medicine 09/22/20 documented as of this encounter
--- OUTSIDE RECORDS SUMMARY | 2024-10-01 03:26 | External Medical Summary | Summary of Care ---
Author Name Unknown Organization [facility] Address [address] [place] [address] Phone [phone] Care Team Providers Care Stock Speculator Name Role Phone Lashawn Mejia MD Primary Care Prov ider Reason for Visit * Reason Comments Chemotherapy C1/D1 - Keytruda IV Therapy Venofer 07/10 * Episode Based Medications (Routine) - Authorized Specialty Diagnoses / Procedures Referred By Contac t Referred To Contact Diagnoses Encounter for antineoplastic chemotherapy Endometrial cancer (HCC) Procedures RI INJ PEMBROLIZUMAB Flaquita Wilson MD [address] [place] [address] Phone: tel: fax: Hematology/Oncology Treatment, [address] [address] Phone: tel: fax: Referral ID Status Reason Start Date Expiration Date V isits Requested Visits Authorized [id number] Authorized 08/19/2024 02/14/[phone] Encounter Details Date Type Department Care Team (Latest Contact Info) Description 08/30/2024 10:00 AM EST Hem/Onc Treatment Hematology/Oncolog y Treatment, [address] [phone] Rosario, Chair 2 Hem On[address] [place] [address] Encounter for antineoplastic chemotherapy*; Endometrial cancer (HCC); Iron deficiency anemia due to chronic blood loss Allergies Active Allergy Reactions Criticality Noted Date Comments Gabapentin Neuro complications (Please comment),Tachycardia 02/06/2023 Hallucinations documented as of this encounter (statuses as of 08/31/2024) Medications Ondansetron HCl 8 MG Oral TabletIndications: Endometrial cancer (HCC) Take 1 Tablet by mouth every 8 hours as needed for Nausea. 30 Tablet 08/26/19 24 Active Additional Information Patient not taking.Reported on 07/13/2024 Lidocaine-Prilocai ne 2.5-2.5 % External Cream (Emla)Indications: Endometrial cancer (HCC) APPLY TO SKIN OVER MEDIPORT & COVER 1HR PRIOR TO ACCESSING. 30 g 1 09/08/19 24 Active Additional Information Patient not taking.Reported on 07/13/2024 Levothyroxine Sodium 200 MCG Oral Tablet (Levoxyl)Indicatio [...] Additional Information Patient not taking.Reported on 07/13/2024 Nortriptyline HCl 25 MG Oral Capsule (Pamelor)Arpitao ns:Chemotherapy-in duced peripheral neuropathy (HCC) Take 1 Capsule by mouth at bedtime. Do not start before May 06, 2024. 30 Capsule 5 05/06/20 24 Active oxyBUTYnin Chloride ER 5 MG Oral Tablet Extended Release 24 Hour (Ditropan XL) Take 1 Tablet by mouth in the morning. 30 Tablet 11 07/01/20 24 Active Hydrocortisone Acetate 25 MG Rectal Suppository (Anusol HC) Administer 1 Suppository into the rectum at bedtime. 12 Suppository 3 07/21/19 25 Active Additional Information Patient not taking.Reported on 08/27/2024 rOPINIRole HCl 3 MG Oral TabletIndications: Restless legs syndrome Take 1 Tablet by mouth in the morning and 1 Tablet at noon and 1 Tablet in the evening and 1 Tablet before bedtime. 120 Tablet 3 08/20/19 25 Active clonazePAM 0.5 MG Oral Tablet (KlonoPIN)Indicati ons:RLS (restless legs syndrome) Take 1-2 tablets per mouth at bedtime. 60 Tablet 2 08/26/19 25 Active oxyCODONE-Acetamin ophen 5-325 MG Oral Tablet (Percocet)Indicati ons:Endometrial cancer (HCC) Take 1 Tablet by mouth every 4 hours as needed for Pain, Moderate. 60 Tablet 08/26/19 25 Active Lisinopril 5 MG Oral Tablet (Prinivil)Indicati ons:HTN, goal below 140/90 Take 1 Tablet by mouth in the morning. 90 Tablet 1 08/27/19 25 Active documented as of this encounter (statuses as of 08/31/2024) Active Problems Problem Noted Date Diagnosed Date Encounter for antineoplastic chemotherapy 2023 Vulvar irritation 05/12/2023 Overview (05/12/2023): BIOPSY (05/06/2023) -- BENIGN A. Skin, right vulva, biopsy: Benign mature sebaceous glands with minimal inflammation. Negative for dysplasia and malignancy. Comment: The findings are non-specific, although sebaceous hyperplasia was considered. Clinical correlation is required to determine if the biopsy if account services representative. B. Skin, left vulva, biopsy: Mild [...] as of this encounter (statuses as of 08/31/2024) Resolved Problems Problem Noted Date Diagnosed Date [...] as of this encounter (statuses as of 08/31/2024) Immunizations Name Administration Dates Next Due Seasonal [...] Team (Late st Contact Info) Description 09/01/2024 10:00 AM EST Office Visit Palliative Medicine [place] 200 [place] [address] MD [address] [place], [place] [phone] 09/01/2024 1:15 PM EST Pharmacy Pharmacy Hematology Oncology [facility] [address] [place] [address] [facility] Hem/Onc [address] [place] [address] 09/02/2024 9:20 AM EST Telemedicine Neurology [place] [address] [place] [address] Clif Mckeon MD [address] [place], [place] [phone] 09/03/2024 3:50 PM EST Telemedicine BALLROOM DANCE INSTRUCTOR Urology [facility] [address] [place], [place] [phone] Shanti Cummings PA-C [address] [place] [address] 09/06/2024 2:30 PM EST Hem/Onc Treatment Hematology/Oncology Treatment, [address] [place] [address] Rosario, Chair 2 Hem Onc [place] [address] [place] [address] 09/13/2024 8:45 AM EDT Hem/Onc Treatment Hematology/Oncology Treatment, [address], [place] [address] Rosario, Chair 9 Hem Onc [facility] [address] [place] [address] [place] [address] 09/20/2024 7:50 AM EDT Laboratory Laboratory [facility] [place] [address] [place] [phone] Rosario, Lab [facility] 200 [facility] [place] [address] 09/20/2024 8:30 AM EDT Office Visit Hematology/Oncology [facility] [place] 200 [facility] [place] [phone] Belinda Christianson CRNP 400 [facility] [place] [id number] 09/20/2024 9:00 AM EDT Hem/Onc Treatment Hematology/Oncology Treatment, [address], [place] [phone] Rosario, Chair 4 Hem Onc [address] [place] [address] 09/22/2024 2:45 PM EDT Nurse Only Hematology/Oncology Treatment, [address], [place] [phone] Rosario, Chair 11 Hem Onc [facility] 200 [facility] [place] [address] 11/16/2024 8:45 AM EDT Telemedicine Genetics HemOnc, [facility] [address] [place] [address] [place] Perez, [place] [address] [facility] [place] [address] 11/30/2024 9:00 AM EDT Office Visit Sleep Disorders Ctr [facility] [place] [address] [place] [address] Silvia Holt CRNP [address] [place] [address] 02/09/2025 9:00 AM EDT Office Visit Family Medicine [address] [place] [phone] Lashawn Mejia MD [address] [place] [address] [place] [address] Scheduled Procedures Name Priority Associated Diagnoses Date/Ti [...] 023, 12/14/2020, 10/21/2007 CKD PHOS USE SMARTSET 08977 12/26/2023 06/07/2022, 01/16/2016, 02/16/2015, Additional history exists HbA1c 12/26/2023 12/25/2022, 07/0 07/2021, 12/14/2020, Additional history exists Influenza Vaccine (FLU shot) (#1) 2024 05/14/2010 TSH 03/21/2024 08/30/2024, 03/07, 02/06/2023, Additional history exists GFR 02/27/2025 08/30/2024, 08/07, 08/04/2024, Additional history exists CKD HGB USE SMARTSET 17536 08/30/202508/30, 08/30/2024, 08/17/2024, Additional history exists Lipid Panel 01/04/2027 01/04/2022, [...] this encounter Medical Devices Implanted Type Area Hammersmith Helper Device Identifier Shelf Expiration Date Model / Serial / Lot Port Implant W8f Poly Cath - [id number] Implanted:Qty : 1 on 09/05/2023 by Orville Zendejas MD at OR [facility] Right: Chest CR BARD : PERIPHERAL VASCULAR [id number] 06/05/2024 [id number] / / [id number] documented as of this encounter Visit Diagnoses [...] on Fri08/30/24 at 1130, Until Fri08/30/24 at 2010, Maintenance lineIndications:Encounter for antineoplastic chemotherapy,Endometrial cancer (HCC) [...] on Fri08/30/24 at 1021, Until Fri08/30/24 at 2010, Do not flush if lock, PICC, or [...] Directives occurred with: Not Discussed Care Teams Stock Speculator Relationship Specialty Start Date End Date Lashawn Mejia MD [address] [place] [address] [place] [address] PCP - General Family Medicine 09/22/20 documented as of this encounter
--- OUTSIDE RECORDS SUMMARY | 2024-10-01 03:26 | External Medical Summary | Summary of Care ---
Author Name Unknown Organization [facility] Address [address] [place] [address] Phone [phone] Care Team Providers Care Coffee Sommelier Name Role Phone Lashawn Mejia MD Primary Care Prov ider Reason for Visit * Reason Onset Date Comments Information 08/31/2024 Check in after C 1D1 keytruda Encounter Details Date Type Department Care Team (Late st Contact Info) Description 08/31/2024 Telephone Hematology/Oncology Treatment, [place] [address] [place] [address] Flaquita Wilson MD [address] [place] [address] Information (Check in after C1D1 keytruda) Allergies Active Allergy Reactions Criticality Noted Date Comments Gabapentin Neuro complications (Please comment),Tachycardia 02/06/2023 Hallucinations documented as of this encounter (statuses as of 08/31/2024) Medications Ondansetron HCl 8 MG Oral TabletIndications [...] 07/13/2024 Nortriptyline HCl 25 MG Oral Capsule (Pamelor)Indicati ons:Chemotherapy- induced peripheral neuropathy (HCC) Take 1 Capsule by mouth at bedtime. Do not start before May 06, 2024. 30 Capsule 5 024 Active oxyBUTYnin Chloride ER 5 MG Oral Tablet Extended Release 24 Hour (Ditropan XL) Take 1 Tablet by mouth in the morning. 30 Tablet 11 024 Active Hydrocortisone Acetate 25 MG Rectal Suppository [...] mouth in the morning. 60 Each 5 Active documented as of this encounter (statuses [...] Telephone Encounter - Bouchra Webster RN - 08/31/2024 8:58 AM EST HEMATOLOGY/ONCOLOGY INITIAL CHEMO FOLLOW-UP Patient received C1D1 keytruda 08/30/24. Post chemo side effects: Left message for patient to return call. Advised in message I would also send MyG. Additional information: Lenvima can be filled through [facility]. documented in this encounter Plan of Treatment Upcoming Encounters Date Type Department Care Team (Caroline melgar Contact Info) Description 09/01/2024 10:00 AM EST Office Visit Palliative Medicine [facility] [place] [address] [place] [address] MD [address] [place], [place] [id number] 09/01/2024 1:15 PM EST Pharmacy Pharmacy Hematology Oncology [facility] [address] [place] [address] [facility] Hem/Onc [address], [place] [id number] 09/02/2024 9:20 AM EST [facility]medicine [facility] [address] [place] [address] Clif Mckeon MD [address], [place] [id number] 09/03/2024 3:50 PM EST Telemedicine SMALL BUSINESS REPRESENTATIVE Urology [facility] [address] [place] [address] Shanti Cummigns PA-C [address] [place] [address] 09/06/2024 2:30 PM EST Hem/Onc Treatment Hematology/Oncology Treatment, [place] [address] [facility], [place] [phone] Rosario, Chair [address] Hem On[address] [place] [address] 09/13/2024 8:45 AM EDT Hem/Onc Treatment Hematology/Oncology Treatment, [address] [place] [phone] Rosario, Chair 9 Hem Onc Scenery [address] [place] [address] 09/20/2024 7:50 AM EDT Laboratory Laboratory [facility] [place] [address] [facility] [place] [phone] Rosario, Lab [address] [facility] [place], [place] [address] 09/20/2024 8:30 AM EDT Office Visit Hematology/Oncology [facility] [place] [address] [place] [phone] Belinda Christianson CRNP [address] [facility] [place] [address] 09/20/2024 9:00 AM EDT Hem/Onc Treatment Hematology/Oncology Treatment, [address], [place] [phone] Rosario, Chair [address] Hem Onc [address] [place] [address] 09/22/2024 2:45 PM EDT Nurse Only Hematology/Oncology Treatment, [address], [place] [phone] Rosario, Chair [address] Hem On[address] [place], [place] [address] 11/16/2024 8:45 AM EDT Telemedicine Genetics HemOnc, [facility] [address] [place] [address] Nat Perez, [place] [address] [facility] [place] [address] 11/30/2024 9:00 AM EDT Office Visit Sleep Disorders Ctr Jett Belcher [place] [address] [phone] Silvia Holt CRNP [address] [place] [address] 02/09/2025 9:00 AM EDT Office Visit Family Medicine [address] [place] [phone] Lashawn Mejia MD [address] [place] [address] [place] [address] Scheduled Procedures Name Priority Associated Diagnoses Date/Ti [...] 023, 12/14/2020, 10/21/2007 CKD PHOS USE SMARTSET 48105 12/26/2023/2 07/2022, 01/16/2016, 02/16/2015, Additional history exists HbA1c 12/26/2023 12/25/2022, 07/0 07/2021, 12/14/2020, Additional history exists Influenza Vaccine (FLU shot) (#1) 2024 05/14/2010 GFR 02/27/2025 08/30/2024, 08/07, 08/04/2024, Additional history exists CKD HGB USE SMARTSET 20265 08/30/202508/30, 08/30/2024, 08/17/2024, Additional history exists TSH [...] this encounter Medical Devices Implanted Type Area Ticket Speculator Device Identifier Shelf Expiration Date Model / Serial / Lot Port Implant W8f Poly Cath - [id number] Implanted:Qty : 1 on 09/05/2023 by Orville Zendejas MD at [facility] Right: Chest CR BARD : PERIPHERAL VASCULAR [id number] 06/05/2024 [id number] / / [id number] documented as of this encounter Advance Directives * Full Code (Latest Code Status on File) Date Activated Date Inactivated Comments 02/19/2022 1:10 PM 02/19/2022 8:22 PM This order r eflects the patients wishes and were consensually agreed upon. Question Answer Comments Discussion of Advance Directives occurred with: Not Discussed Care Teams Coffee Sommelier Relationship Specialty Start Date End Date Lashawn Mejia MD [address] [place] [address] [place] [address] PCP - General Family Medicine 09/22/20 documented as of this encounter
--- OUTSIDE RECORDS SUMMARY | 2024-10-01 03:26 | External Medical Summary | Summary of Care ---
Author Name Unknown Organization [facility] Address [address] [place] [address] Phone [phone] Care Team Providers Care General Foreman Name Role Phone Lashawn Mejia MD Primary Care Prov ider Reason for Visit * Reason Onset Date Comments Information 08/31/2024 Check in after C 1D1 keytruda Encounter Details Date Type Department Care Team (Late st Contact Info) Description 08/31/2024 Telephone Hematology/Oncology Treatment, [place] [address] [place] [address] Flaquita Wilson MD [address] [place] [address] Information (Check in after C1D1 keytruda) Allergies [...] required to determine if the biopsy if computer help desk representative. B. 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 Not on file Not [...] 10:00 AM EST Office Visit Palliative Medicine [facility] [place] [address] [place] [address] MD [address] [place], [place] [phone] 09/01/2024 1:15 PM EST Pharmacy Pharmacy Hematology Oncology [facility] [address] [place] [address] [facility] Hem/Onc [address], [place] [phone] 09/02/2024 9:20 AM EST [facility] [address] [place] [address] Clif Mckeon MD [address] [place], [place] [phone] 09/03/2024 3:50 PM EST Telemedicine SAUSAGE GRINDER Urology [facility] [address] [place] [address] Shanti Cummings PA-C [address] [place] [address] 09/06/2024 2:30 PM EST Hem/Onc Treatment Hematology/Oncology Treatment, [place] [address] [facility], [place] [phone] Rosario, Chair 2 Hem Onc [address] [place] [address] 09/13/2024 8:45 AM EDT Hem/Onc Treatment Hematology/Oncology Treatment, [address] [place] [phone] Rosario, Chair 9 Hem Onc Scenery 200 [facility] [place] [address] 09/20/2024 7:50 AM EDT Laboratory Laboratory [facility] [place] [address] [facility] [place] [phone] Rosario, Lab [address] [facility] [place], [place] [address] 09/20/2024 8:30 AM EDT Office Visit Hematology/Oncology [facility] [place] [address] [facility] [place] [phone] Belinda Christianson CRNP [address] [facility] [place] [address] 09/20/2024 9:00 AM EDT Hem/Onc Treatment Hematology/Oncology Treatment, [address], [place] [phone] Rosario, Chair 4 Hem Onc [address] [place] [address] 09/22/2024 2:45 PM EDT Nurse Only Hematology/Oncology Treatment, [address], [place] [phone] Rosario, Chair 11 Hem Onc [address] [place], [place] [address] 11/16/2024 8:45 AM EDT Telemedicine Genetics HemOnc, [facility] [address] [place] [address] Nat Perez, [place] [address] [facility] [place] [address] 11/30/2024 9:00 AM EDT Office Visit Sleep Disorders Ctr Jett Belcher [place] [address] [address] [phone] Silvia Holt CRNP [address] [place] [address] 02/09/2025 9:00 AM EDT Office Visit Family Medicine [address] [place] [phone] Lashawn Mejia MD [address] [place] [address] [place] [address] Scheduled Procedures Name Priority [...] 023, 12/14/2020, 10/21/2007 CKD PHOS USE SMARTSET 58655 12/26/2023/2 07/2022, 01/16/2016, 02/16/2015, Additional history exists HbA1c 12/26/2023 12/25/2022, 07/0 07/2021, 12/14/2020, Additional history exists Influenza Vaccine (FLU shot) (#1) 2024 05/14/2010 GFR 02/27/2025 08/30/2024, 08/07, 08/04/2024, Additional history exists CKD HGB USE SMARTSET 90537 08/30/202508/30, 08/30/2024, 08/17/2024, Additional history exists TSH [...] this encounter Medical Devices Implanted Type Area Select [employer]er Device Identifier Shelf Expiration Date Model / Serial / Lot Port Implant W8f Poly Cath - [id number] Implanted:Qty : 1 on 09/05/2023 by Orville Zendejas MD at [facility] Right: Chest CR BARD : PERIPHERAL VASCULAR [id number] 06/05/2024 [id number] / / [id number] documented as of this encounter Advance Directives * Full Code (Latest Code Status on File) Date Activated Date Inactivated Comments 02/19/2022 1:10 PM 02/19/2022 8:22 PM This order r eflects the patients wishes and were consensually agreed upon. Question Answer Comments Discussion of Advance Directives occurred with: Not Discussed Care Teams General Foreman Relationship Specialty Start Date End Date Lashawn Mejia MD [address] [place] [address] [place] [address] PCP - General Family Medicine 09/22/20 documented as of this encounter
--- OUTSIDE RECORDS SUMMARY | 2024-10-01 03:26 | External Medical Summary | Summary of Care ---
Author Name Unknown Organization [facility] Address [address] [place] [address] Phone [phone] Care Team Providers Care Babbitter Name Role Phone Lashawn Mejia MD Primary Care Prov ider Encounter Details Date Type Department Care Team (Late st Contact Info) Description 09/02/2024 9:20 AM EST Telemedicine Neurology [address] [place] [address] [place] [address] Clif Mckeon MD [address] [place] [address] RLS (restless legs syndrome)*; Chemotherapy-induced peripheral neuropathy (HCC); Obstructive sleep apnea of adult Allergies Active Allergy Reactions Criticality Noted Date Comments Gabapentin Neuro complications (Please comment),Tachycardia 02/06/2023 Hallucinations documented as of this encounter (statuses as of 09/02/2024) Medications Ondansetron HCl 8 MG Oral TabletIndications [...] Additional Information Patient not taking.Reported on 07/13/2024 oxyBUTYnin Chloride ER 5 MG Oral Tablet [...] at bedtime. 30 Capsule 5 025 Active Nortriptyline HCl 25 MG Oral Capsule (Pamelor)Indicati ons:Chemotherapy- induced peripheral neuropathy (HCC) Take 1 Capsule by mouth at bedtime. Do not start before May 06, 2024. 30 Capsule 5 024 2024 Disconti nued(Med ication/ Dose Changed) documented as of this encounter (statuses as of 09/02/2024) Active Problems Problem Noted Date Diagnosed Date Encounter for antineoplastic chemotherapy 2023 Vulvar irritation 05/12/2023 Overview (05/12/2023): BIOPSY (05/06/2023) -- BENIGN A. Skin, right vulva, biopsy: Benign mature sebaceous glands with minimal inflammation. Negative for dysplasia and malignancy. Comment: The findings are non-specific, although sebaceous hyperplasia was considered. Clinical correlation is required to determine if the biopsy if underwriting account representative. B. 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 I was not in a hospital or clinic location. After connecting through televideo, patient was verified with two unique identifiers. Patient (or authorized legal underwriting account representative) was then informed that this was a Telemedicine visit and being conducted confidentially over secure lines. Methods to assure confidentiality were taken. Patient acknowledged consent and understanding of privacy and security of the Telemedicine visit. The patient agreed to participate. 09/02/2024 9:44 AM Lissette CARY 59 year old female REF: LASHAWN MEJIA [address] [place] [address] [place] [id number] (office) [phone] (fax) Asked by Lashawn Becker MD to render opinion regarding restless legs syndrome CC: No chief complaint on file. HPI: The patient has last seen 4 months ago. She has medically refractory restless legs syndrome and likely augmentation from high dose dopamine agonists. She also was having iron-deficiency and lasttime we recommended iron infusions as well as a trial of tonic water. I put her on low-dose clonazepam up to 1 milligram at bedtime. She does have significant sensory disturbances from chemotherapy-induced peripheral neuropathy. I trialed her on low-dose nortriptyline last time and send her to Sleep Medicine to help with sleep apnea which I suspected was responsible for daytime fatigue and minor cognitive issues. She is down to 2-3 Ropinirole per day. First dose is in the morning, second at supper time, last atnight time. She won't see sleep medicine until November. Next week will be starting the chemo again. She was diagnosed recurrence of her endometrial cancer.She found out 2 weeks. PAST MEDICAL HISTORY: Patient Active Problem List Diagnosis Date Noted Encounter for antineoplastic chemotherapy [Z51.11] 08/26/2023 Vulvar irritation [N90.89] 05/12/2023 BIOPSY (05/06/2023) -- BENIGN A. Skin, right vulva, biopsy: Benign mature sebaceous glands with minimal inflammation. Negative for dysplasia and malignancy. Comment: The findings are non-specific, although sebaceous hyperplasia was considered. Clinical correlation is required to determine if the biopsy if underwriting account representative. B. Skin, left vulva, biopsy: Mild perifollicular lymphocytic inflammation with rare eosinophils. Negative for dysplasia and malignancy. Comment: A GMS stain for fungal elements is negative and multiple deeper levels were reviewed. The histologic findings are non-specific. The folliculocentric inflammatory infiltrate could represent folliculitis. There is no definitive evidence of lichen sclerosus. Clinical correlation is required. Class 3 severe obesity due to excess calories with serious comorbidity and body mass index (BMI) of50.0 to 59.9 in adult (HCC) [E66.813, Z68.43, E66.01] 12/25/2022 Chronic kidney disease, stage 3a (HCC) [N18.31] 09/16/2022 Per CKD protocol Endometrial cancer (HCC) [C54.1] 01/01/2022 Moderate episode of recurrent major depressive disorder (HCC) [F33.1] 09/21/2020 Hypertension goal BP (blood pressure) < 140/90 [I10] 09/21/2020 Prediabetes [R73.03] 01/20/2016 Iron deficiency anemia [D50.9] 02/25/2015 DDD (degenerative disc disease), cervical [M50.30] 12/16/2014 mild DDD C5-6 and C6-7 CHON (obstructive sleep apnea) [G47.33] 01/03/2012 Mild on PSG , AHI 8.0 Severe on PSG 01/2010, AHI 41.0, RDI 41 Urge incontinence of urine [N39.41] 12/05/2011 Dyslipidemia, goal LDL below 100 [E78.5] 09/21/2010 Female stress incontinence [N39.3] Vitamin B deficiency [E53.9] Vitamin D deficiency [E55.9] Other allergic rhinitis [J30.89] 02/15/2009 ICD-10 update of inactive term Restless legs syndrome [G25.81] 02/06/2007 ABN LIVER FUNCTION STUDY [R94.5] 08/22/2004 Persistent insomnia [G47.00] 05/04/2004 Panic disorder [F41.0] 05/06/2003 Anxiety state [F41.1] 05/06/2003 Acquired hypothyroidism [E03.9] 01/12/2003 Pseudotumor cerebri syndrome [G93.2] 03/30/2001 MEDICATIONS: Current Outpatient Medications Medication Sig Dispense Refill Ondansetron HCl 8 MG Oral Tablet Take 1 Tablet by mouth every 8 hours as needed for Nausea. (Patient not taking: Reported on 07/13/2024) 30 Tablet 0 Lidocaine-Prilocaine 2.5-2.5 % External Cream (Emla) APPLY TO SKIN OVER MEDIPORT & COVER 1HR PRIOR TO ACCESSING. (Patient not taking: Reported on 07/13/2024) 30 g 1 Levothyroxine Sodium 200 MCG Oral Tablet (Levoxyl) Take 1 Tablet by mouth daily first thing in the morning. (at least 30 min prior to breakfast or other meds) 90 Tablet 1 buPROPion HCl ER (XL) 150 MG Oral Tablet Extended Release 24 Hour (Wellbutrin XL) Take 1 Tablet by mouth in the morning. (Patient not taking: Reported on 07/13/2024) 30 Tablet 5 Nortriptyline HCl 25 MG Oral Capsule (Pamelor) Take 1 Capsule by mouth at bedtime. Do not start before May 06, 2024. 30 Capsule 5 oxyBUTYnin Chloride ER 5 MG Oral Tablet Extended Release 24 Hour (Ditropan XL) Take 1 Tablet by mouth in the morning. 30 Tablet 11 Hydrocortisone Acetate 25 MG Rectal Suppository (Anusol HC) Administer 1 Suppository into the rectum at bedtime. (Patient not taking: Reported on 08/27/2024) 12 Suppository 3 rOPINIRole HCl 3 MG Oral Tablet Take 1 Tablet by mouth in the morning and 1 Tablet at noon and 1 Tablet in the evening and 1 Tablet before bedtime. 120 Tablet 3 clonazePAM 0.5 MG Oral Tablet (KlonoPIN) Take 1-2 tablets per mouth at bedtime. 60 Tablet 2 oxyCODONE-Acetaminophen 5-325 MG Oral Tablet (Percocet) Take 1 Tablet by mouth every 4 hours as needed for Pain, Moderate. 60 Tablet 0 Lisinopril 5 MG Oral Tablet (Prinivil) Take 1 Tablet by mouth in the morning. 90 Tablet 1 Ondansetron HCl 8 MG Oral Tablet (Zofran) Take 1 Tablet by mouth in the morning. 1 hour prior to administration of oral chemotherapy. 30 Tablet 3 Prochlorperazine Maleate 10 MG Oral Tablet (Compazine) Take 1 Tablet by mouth every 6 hours as needed for Nausea. 30 Tablet 3 Urea 20 % External Cream (Urea 20 Intensive Hydrating) Apply topically to affected area 2 times a day. Apply topically to hands and feet twice daily 228 g 3 Lenvatinib (20 MG Daily Dose) 2 x 10 MG Oral Capsule Therapy Pack (Lenvima 20 MG Daily Dose) Take 20 mg by mouth in the morning. 60 Each 5 No current facility-administered medications for this visit. 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 (Adult - for ages 18 years and over): No Does your family have trouble paying for medicine? (Household - for ages 0-17 years): Not on file Food Insecurity: No Food Insecurity (04/27/2024) Food Insecurity Worried About Running Out of Food in the Last Year: Never true Ran Out of Food in the Last Year: Never true Do you need food for this week? (Adult - for ages 18 years and over): No Transportation Needs: No Transportation Needs (04/27/2024) Transportation Needs Do you have trouble getting a ride to medical visits or work? (Adult - for ages 18 years and over):Not on file Does your family have a hard time getting a ride to doctors visits? (Household - for ages 0-17 years): Not on file Has lack of transportation kept you from medical appointments, meetings, work, or from getting things needed for daily living? Check all that apply. (Adult - for ages 18 years and over): No Do you (or your family) have trouble finding or paying for a ride (transportation)? (Household - for ages 0-17 years): Not on file Social Connections: Socially Integrated (04/27/2024) Social Connections How often do you feel lonely or isolated from those around you? (Adult - for ages 18 years and over): Sometimes Housing Stability: Low Risk (04/27/2024) Housing Stability Do you currently live in a care home or have no steady place to sleep at night? (Adult - for ages 18 years and over): No Do you think you are at risk of becoming homeless? (Adult - for ages 18 years and over): Not on file Does your family worry about paying for your home or becoming homeless? (Household - for ages 0-17 years): Not on file Are you homeless or worried that you might be in the future? (Adult - for ages 18 years and over): No Are you (or your family) homeless or worried that you might be in the future? (Household - for ages0-17 years): Not on file Occupation: HIV risk factors: None FAMILY HISTORY Family History Problem Relation Name Age of Onset Hypertension Mother Cancer Mother laryngeal Cancer Father prostate Thyroid Disorder Sister Other (Lupus) Sister Thyroid Disorder Sister Half sister Cancer Mother lachelle mena Thyroid Disorder Mother lachelle sonithor Hypertension Mother lachelle plubethor Arthritis Grandmother (Maternal) Thyroid Disorder Sister [employer] Family Status Relation Status Mo Alive HTN & cancer of larynx (smoker) - Lachelle Ferrara Fa Alive unkown Sis Alive SLE Sis Alive Bro Alive Bro Alive Bro Alive Elvin Alive Elvin Alive Sis (Not Specified) Sis (Not Specified) Sis (Not Specified) Mo (Not Specified) MGMA (Not Specified) Sis (Not Specified) REVIEW OF SYSTEMS: The patient denies new cardiac, lung, kidney, liver, skin, thyroid, bladder, or digestive problems.The patient also denies acute changes in hearing or vision. Otherwise, all other systems are negative or as noted above. There were no vitals taken for this visit. The patient is a 59 year old female who is well developed and appears to be their stated age. NEUROLOGIC EXAMINATION: Mental status: Intact higher integrative functions. Orientated to person, place, and time. Recent and remote memory functions are intact. Attention, concentration, language, and fund of knowledge arenormal. Judgment and insight are intact. Mood and affect are normal. No neurologic interval changes. IMPRESSION: The patient has medically refractory restless legs syndrome and neuropathy from previous chemotherapy. She is able to slightly reduce the dose of ropinirole with the help of clonazepam. She may benefit from the new FDA approved therapy which is nonmedical and comes in the form of a tonic peroneal nerve stimulator. She should also benefit from a higher dose of nortriptyline as she has not had muchimprovement on the 25 milligram dose but also had no side effects. RECOMMENDATIONS: I wrote a prescription for the tonic peroneal nerve stimulator from [facility]. She will continue on clonazepam and cut down on ropinirole if possible if she experiences relief with the stimulator. I am also increasing her dose of nortriptyline to 50 milligrams at bedtime. She will also follow through with a Sleep Medicine referral. Next follow up in 6 months. Thank-you for letting me participate in the care of this patient. Clif Mckeon MD [place]rology [place] [address] [facility] [address] Please send copy to requesting physician, Lashawn Becker MD documented in this encounter Plan of Treatment Upcoming Encounters Date Type Department Care Team (Late st Contact Info) Description 09/03/2024 1:15 PM EST Pharmacy Pharmacy Hematology Oncology [facility] [address] [place] [address] [facility] Hem/Onc [facility] [place] [address] 09/03/2024 3:50 PM EST Telemedicine [facility] [address] [address] Shanti Cummings PA-C [address] [place] [address] 09/06/2024 2:30 PM EST Hem/Onc Treatment Hematology/Oncology [address], [address] [phone] Rosario, Chair 2 Hem Onc [address] [address] 09/08/2024 11:00 AM EST Office Visit Palliative Medicine [facility] Rosario [address] [phone] MD [address] [place], [place] [address] [place] [address] 09/13/2024 8:45 AM EDT Hem[facility] [address] [facility] [place], [place] [phone] Rosario, Chair 9 Hem Onc Scenery [address] [place], [place] [address] 09/20/2024 7:50 AM EDT Laboratory [facility] [address] [place] [phone] Rosario, Lab [facility] [address] [facility] [place], [place] [address] 09/20/2024 8:30 AM EDT Office Visit Hematology/Oncology [facility] [address] [place], [place] [phone] Belinda Christianson CRNP [address] [facility] [address] [address] 09/20/2024 9:00 AM EDT Hem/Onc Treatment Hematology/Oncology [facility] [address] [facility] [place], [place] [phone] Rosario, Chair 6 Hem Onc [facility] [address] [facility] [place], [place] [address] 11/16/2024 8:45 AM EDT Telemedicine Genetics HemOnc, [facility] [address] [place] [address] Nat Perez, [place] [address] [place] [address] 11/30/2024 9:00 AM EDT [facility] [address] [place] [phone] Silvia Holt CRNP [address] [place] [address] 02/09/2025 9:00 AM EDT Office Visit Family Medicine [address] [place] [phone] Lashawn Mejia MD [address] [place] [address] [place] [address] 03/02/2025 10:40 AM EDT Telemedicine Neurology [address] [place] [phone] Clif Mckeon MD [address] [place] [address] Scheduled Procedures Name Priority [...] 023, 12/14/2020, 10/21/2007 CKD PHOS USE SMARTSET 88538 12/26/2023/07/2022, 01/16/2016, 02/16/2015, Additional history exists HbA1c 12/26/2023 12/25/2022, 07/0 07/2021, 12/14/2020, Additional history exists Influenza Vaccine (FLU shot) (#1) 2024 05/14/2010 GFR 02/27/2025 08/30/2024, 08/07, 08/04/2024, Additional history exists CKD HGB USE SMARTSET 04133 08/30/202508/30, 08/30/2024, 08/17/2024, Additional history exists TSH [...] this encounter Medical Devices Implanted Type Area Anesthesiologist And Critical Care Device Identifier Shelf Expiration Date Model / Serial / Lot Port Implant [id number] Poly Cath - [id number] Implanted:Qty : 1 on 09/05/2023 by Orville Zendejas MD at OR [facility] Right: Chest CR BARD : PERIPHERAL VASCULAR [id number] 06/05/2024 [id number] / / [id number] documented as of this encounter Visit Diagnoses Diagnosis RLS (restless legs syndrome)- Primary Restless legs syndrome (RLS) Chemotherapy-induced peripheral neuropathy (HCC) Obstructive sleep apnea of adult Obstructive sleep apnea (adult) (pediatric) documented in this encounter Advance Directives * Full Code (Latest Code Status on File) Date Activated Date Inactivated Comments 02/19/2022 1:10 PM 02/19/2022 8:22 PM This order r eflects the patients wishes and were consensually agreed upon. Question Answer Comments Discussion of Advance Directives occurred with: Not Discussed Care Teams Babbitter Relationship Specialty Start Date End Date Lashawn Mejia MD [address] [place] [address] [place] [phone] PCP - General Family Medicine 09/22/20 documented as of this encounter
--- OUTSIDE RECORDS SUMMARY | 2024-10-01 03:26 | External Medical Summary | Summary of Care ---
Author Name Unknown Organization [facility] Address [address] [place] [address] Phone [phone] Care Team Providers Care Fbi Profiler Name Role Phone Lashawn Mejia MD Primary Care Prov ider Encounter Details Date Type Department Care Team (Late st Contact Info) Description 07/21/2024 Telephone [facility] Gastroenterology [address] [facility] [place] [address] Fer Rogers MD [address] [place] [address] Allergies Active Allergy Reactions Criticality Noted Date Comments Gabapentin Neuro complications (Please comment),Tachycardia 02/06/2023 Hallucinations documented as of this encounter (statuses as of 08/31/2024) Medications Ondansetron HCl 8 MG Oral TabletIndication s:Endometrial cancer (HCC) Take 1 Tablet by mouth every 8 hours as needed for Nausea. 30 Tablet Active Additional Information Patient not taking.Reported on 07/13/2024 Lidocaine-Priloc raj 2.5-2.5 % External Cream (Emla)Indication s:Endometrial cancer (HCC) APPLY TO SKIN OVER MEDIPORT & COVER 1HR PRIOR TO ACCESSING. 30 g 1 024 Active Additional Information Patient not taking.Reported on 07/13/2024 Levothyroxine Sodium 200 MCG Oral Tablet (Levoxyl)Indicat ions:Acquired hypothyroidism Take 1 Tablet by mouth daily first thing in the morning. (at least 30 min prior to breakfast or other meds) 90 Tablet 1 Active buPROPion HCl ER (XL) 150 MG Oral Tablet Extended Release 24 Hour (Wellbutrin XL) Take 1 Tablet by mouth in the morning. 30 Tablet 5 Active Additional Information Patient not taking.Reported on 07/13/2024 Nortriptyline HCl 25 MG Oral Capsule (Pamelor)Indicat ions:Chemotherap y-induced peripheral neuropathy (HCC) Take 1 Capsule by [...] on 08/27/2024 Lisinopril 5 MG Oral Tablet (Prinivil)Indica tions:HTN, goal below 140/90 Take by mouth 1 Tablet in the morning. 90 Tablet 1 023 2024 Discontinued(R efill) dexAMETHasone 4 MG Oral TabletIndication s:Endometrial cancer (HCC) Take 5 tab (20 mg) 12 and 6 hours before chemo 60 Tablet 024 2024 Discontinued(M edication List Clean Up) rOPINIRole HCl 3 MG Oral TabletIndication s:Restless legs syndrome Take 1 Tablet by mouth in the morning and 1 Tablet at noon and 1 Tablet in the evening and 1 Tablet before bedtime. 120 Tablet 3 024 2024 Discontinued clonazePAM 0.5 MG Oral Tablet (KlonoPIN)Indica tions:RLS (restless legs syndrome) Take 1-2 tablets per mouth at bedtime. 60 Tablet 2 024 2024 Discontinued(R efill) Nitrofurantoin Monohyd Macro 100 MG Oral Capsule (Macrobid) Take 1 Capsule by mouth in the morning and 1 Capsule before bedtime. Do all this for 7 days. With food until gone. 14 Capsule 024 2024 Discontinued(M edication List Clean Up) Ciprofloxacin HCl 250 MG Oral Tablet (Cipro) Take 1 Tablet by mouth in the morning and 1 Tablet before bedtime. Do all this for 5 days. 10 Tablet 024 2024 Discontinued(M edication List Clean Up) Nitrofurantoin Monohyd Macro 100 MG Oral Capsule (Macrobid)Indica tions:Urine frequency,Mixed incontinence urge and stress (male)(female),H ematuria, unspecified type Take 1 Capsule by mouth in the morning and 1 Capsule before bedtime. Do all this for 7 days. With food until gone. 14 Capsule 024 2024 Discontinued(M edication List Clean Up) documented as of this encounter (statuses as [...] required to determine if the biopsy if career services representative. B. Skin, left vulva, biopsy: [...] encounter Miscellaneous Notes * Telephone Encounter - Summer Morgan OSA - 08/30/2024 4:32 PM EST See TE, flex sig cancelled for now. * Telephone Encounter - Summer Morgan OSA - 07/22/2024 11:14 AM EST Called and spoke to pt, des'sariah flex sig 09/16/24 at [facility] with Dr. Alberto. What kind of prep do you want for her? Also it states to send her for rectal therapy for hemorrhoids. Do you want to put in an order for this? * Telephone Encounter - Fer Rogers MD - 07/21/2024 1:31 PM EST I called to discuss pathology from recent endoscopies with Ms. Cary. Upper endoscopy was unremarkable in regards to pathology, colonoscopy showed a couple of tubular adenomas but revealed very similar endoscopic picture to previous colonoscopy at which time biopsies revealed metastatic endometrial carcinoma. On the biopsies obtained from this examination there was no evidence of any metastatic carcinoma, however due to the endoscopic appearance of the that I would like to have close follow-up with a flexsig in 4 to 6 weeks. We will also send a script for rectal therapy for hemorrhoids and assess her rectal bleeding at that time. She understood these recommendations, scheduled as can you help arrange a follow-up flex sig with myself or Dr. Alberto if possible who is taking care of her in the past. Fer Rogers MD' documented in this encounter Plan of Treatment Upcoming Encounters Date Type Department Care Team (Late st Contact Info) Description 09/01/2024 10:00 AM EST Office Visit Palliative Medicine [facility] [address] [place] [address] MD [address] [place] [address] 09/01/2024 1:15 PM EST Pharmacy Pharmacy Hematology [facility] [place] [address] [place] [address] [facility] [place] Hem/Onc [address] [place] [address] 09/02/2024 9:20 AM EST Telemedicine Neurology [place] [address] [place] [phone] Clif Mckeon MD [address] [facility] [place] [address] 09/03/2024 3:50 PM EST Telemedicine SENIOR MECHANICAL ENGINEER Urology [facility] [place] [address] [facility] [place] [address] Shanti Cummings PA-C [address] [place] [address] 09/06/2024 2:30 PM EST Hem/Onc Treatment Hematology/Oncology Treatment, [place] [address] [facility] [phone] Rosario, Chair 2 Hem Onc Scenery [address] [place] [address] 09/13/2024 8:45 AM EDT Hem/Onc Treatment Hematology/Oncology Treatment, [place] [address] [facility] [phone] Rosario, Chair 9 Hem Onc Scenery [address] [place] [address] 09/20/2024 7:50 AM EDT Laboratory Laboratory [facility] [place] [address] [place] [address] Rosario, Lab Scenery [address] [place] [address] 09/20/2024 8:30 AM EDT Office Visit Hematology/Oncology Scenery [place] [address] [place] [address] Belinda Christianson CRNP [address] [facility] [id number] 09/20/2024 9:00 AM EDT Hem/Onc Treatment Hematology/Oncology Treatment [place] [address] [facility] [phone] Rosario, Chair 4 Hem Onc Scenery [address] [place] [address] 09/22/2024 2:45 PM EDT Nurse Only Hematology/Oncology Treatment, [place] [address] [place] [address] Rosario, Chair 11 Hem Onc Scenery [address] [place] [address] 11/16/2024 8:45 AM EDT Telemedicine Genetics HemOn, [facility] [address] [place] [address] Nat Perez, [place] [address] [facility] [place] [address] 11/30/2024 9:00 AM EDT Office Visit Sleep Disorders Ctr [facility] [place] [address] [place] [phone] Silvia Holt CRNP [address] [place] [address] 02/09/2025 9:00 AM EDT Office Visit Family Medicine [address] [phone] Lashawn Mejia MD [address] [place] [address] [place] [address] Scheduled Orders Name Type Priority Associated Diagnoses Orde r Schedule FLEX SIG Gastro Lower Routine Endometrial cancer (HCC) Ordered: 07/21/2024 Scheduled Procedures Name Priority Associated Diagnoses Date/Ti [...] 023, 12/14/2020, 10/21/2007 CKD PHOS USE SMARTSET 33814 12/26/2023 0607/2022, 01/16/2016, 02/16/2015, Additional history exists HbA1c 12/26/2023 12/25/2022, 0707/2021, 12/14/2020, Additional history exists Influenza Vaccine (FLU shot) (#1) 2024 05/14/2010 TSH 03/21/2024 08/30/2024, 03/07, 02/06/2023, Additional history exists GFR 02/27/2025 08/30/2024, 08/07, 08/04/2024, Additional history exists CKD HGB USE SMARTSET 46919 08/30/202508/30, 08/30/2024, 08/17/2024, Additional history exists Lipid [...] this encounter Medical Devices Implanted Type Area Tool Designer Apprentice Device Identifier Shelf Expiration Date Model / Serial / Lot Port Implant W8f Poly Cath - [id number] Implanted:Qty : 1 on 09/05/2023 by Orville Zendejas MD at [facility] Right: Chest CR BARD : PERIPHERAL VASCULAR [id number] 06/05/2024 [id number] / / [id number] documented as of this encounter Visit Diagnoses [...] Directives occurred with: Not Discussed Care Teams Fbi Profiler Relationship Specialty Start Date End Date Lashawn Mejia MD [address] [place] [address] [place] [address] PCP - General Family Medicine 09/22/20 documented as of this encounter
--- OUTSIDE RECORDS SUMMARY | 2024-10-01 03:26 | External Medical Summary | Summary of Care ---
Author Name Unknown Organization [facility] Address [address] [place] [address] Phone [phone] Care Team Providers Care Associate Program Manager Name Role Phone Lashawn Mejia MD Primary Care Prov ider Reason for Visit * Reason Onset Date Comments Information 08/31/2024 Check in after C 1D1 keytruda Encounter Details Date Type Department Care Team (Late st Contact Info) Description 08/31/2024 Telephone Hematology/Oncology Treatment, [place] [address] [place] [address] Flaquita Wilson MD 200 [place] [address] Information (Check in after C1D1 keytruda) Allergies Active Allergy Reactions Criticality Noted Date Comments Gabapentin Neuro complications (Please comment),Tachycardia 02/06/2023 Hallucinations documented as of this encounter (statuses as of 09/01/2024) Medications Ondansetron HCl 8 MG Oral TabletIndications [...] as of this encounter (statuses as of 09/01/2024) Active Problems Problem Noted Date Diagnosed Date Encounter for antineoplastic chemotherapy 2023 Vulvar irritation 05/12/2023 Overview (05/12/2023): BIOPSY (05/06/2023) -- BENIGN A. Skin, right vulva, biopsy: Benign mature sebaceous glands with minimal inflammation. Negative for dysplasia and malignancy. Comment: The findings are non-specific, although sebaceous hyperplasia was considered. Clinical correlation is required to determine if the biopsy if cash applications representative. B. 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 Mailed [employer] application to home address. * Telephone Encounter - Bouchra Webster RN [...] Team (Late st Contact Info) Description 09/01/2024 1:15 PM EST Pharmacy Pharmacy Hematology [facility]cology [facility] [address] [place] [address] [facility] Hem/Onc [address] [place] [address] 09/02/2024 9:20 AM EST [facility] [address] [place] [address] Clif Mckeon MD [address] [place], [place] [phone] 09/03/2024 3:50 PM EST Telemedicine PAIN MANAGEMENT NURSE Urology [facility] [address] [place] [address] Shanti Cummings PA-C [address] [place] [address] 09/06/2024 2:30 PM EST Hem/Onc Treatment Hematology/Oncology Treatment, [address] [address] Rosario, Chair 2 Hem On[address] [place] [address] 09/08/2024 11:00 AM EST Office Visit Palliative Medicine [address] [address] MD [address] [place], [place] [phone] 09/13/2024 8:45 AM EDT Hem/Onc Treatment Hematology/Oncology Treatment, [place] 200 [facility], [place] [phone] Rosario, Chair 9 Hem Onc Scenery 200 [facility] [place], [place] [address] 09/20/2024 7:50 AM EDT Laboratory Laboratory [facility] Rosario [place] [address] [place] [phone] Rosario, Lab [facility] 200 [facility] [place], [place] [address] 09/20/2024 8:30 AM EDT Office Visit Hematology/Oncology [facility] [place] 200 [facility] [place], [place] [phone] Belinda Christianson CRNP 400 [place] [address] 09/20/2024 9:00 AM EDT Hem/Onc Treatment Hematology/Oncology Treatment, [address], [place] [phone] Rosario, Chair 4 Hem Onc [facility] 200 [facility] [place], [place] [address] 09/22/2024 2:45 PM EDT Nurse Only Hematology/Oncology [address], [place] [phone] Rosario, Chair 11 Hem Onc [facility] 200 [facility] [place], [place] [address] 11/16/2024 8:45 AM EDT Telemedicine Genetics HemOnc, [facility] [address] [place] [address] [place] Perez, [place] [address] [place] [address] 11/30/2024 9:00 AM EDT Office Visit Sleep Disorders Ctr [facility] 132 [place] [phone] Silvia Holt CRNP [address] [place] [address] 02/09/2025 9:00 AM EDT Office Visit Family Medicine [address] [place] [address] Lashawn Mejia MD [address] [place] [address] [place] [address] Scheduled Procedures Name Priority Associated Diagnoses Date/Ti [...] 023, 12/14/2020, 10/21/2007 CKD PHOS USE SMARTSET 60878 12/26/202312/06, 01/16/2016, 02/16/2015, Additional history exists HbA1c 12/26/2023 12/25/2022, 07/0 07/2021, 12/14/2020, Additional history exists Influenza Vaccine (FLU shot) (#1) 2024 05/14/2010 GFR 02/27/2025 08/30/2024, 08/07, 08/04/2024, Additional history exists CKD HGB USE SMARTSET 65789 08/30/202508/30, 08/30/2024, 08/17/2024, Additional history exists TSH [...] this encounter Medical Devices Implanted Type Area Medicaid Nurse Device Identifier Shelf Expiration Date Model / Serial / Lot Port Implant W8f Poly Cath - [id number] Implanted:Qty : 1 on 09/05/2023 by Orville Zendejas MD at [facility] Right: Chest CR BARD : PERIPHERAL VASCULAR [id number] 06/05/2024 [id number] / / [id number] documented as of this encounter Advance Directives * Full Code (Latest Code Status on File) Date Activated Date Inactivated Comments 02/19/2022 1:10 PM 02/19/2022 8:22 PM This order r eflects the patients wishes and were consensually agreed upon. Question Answer Comments Discussion of Advance Directives occurred with: Not Discussed Care Teams Associate Program Manager Relationship Specialty Start Date End Date Lashawn Mejia MD [address] [place] [address] [place] [address] PCP - General Family Medicine 09/22/20 documented as of this encounter
--- OUTSIDE RECORDS SUMMARY | 2024-10-01 03:26 | External Medical Summary | Summary of Care ---
Author Name Unknown Organization [facility] Address [address] [place] [address] Phone [phone] Care Team Providers Care Clinical Trial Assistant Name Role Phone Lashawn Mejia MD Primary Care Prov ider Encounter Details Date Type Department Care Team (Late st Contact Info) Description 09/03/[address] [place] [address] Specified, Z[facility] No Resource [address] [place] [address] Allergies Active Allergy Reactions Criticality Noted Date Comments Gabapentin Neuro complications (Please comment),Tachycardia 02/06/2023 Hallucinations documented as of this encounter (statuses as of 09/03/2024) Medications Ondansetron HCl 8 MG Oral TabletIndications [...] at bedtime. 30 Capsule 5 025 Active documented as of this encounter (statuses as of 09/03/2024) Active Problems Problem Noted Date Diagnosed Date Encounter for antineoplastic chemotherapy 2023 Vulvar irritation 05/12/2023 Overview (05/12/2023): BIOPSY (05/06/2023) -- BENIGN A. Skin, right vulva, biopsy: Benign mature sebaceous glands with minimal inflammation. Negative for dysplasia and malignancy. Comment: The findings are non-specific, although sebaceous hyperplasia was considered. Clinical correlation is required to determine if the biopsy if insurance claim representative. B. 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 Form has been completed and faxed to [phone]. Form has been given to Rosa Lara. [employer] message has been sent to patient. documented in this encounter Plan of Treatment Upcoming Encounters Date Type Department Care Team (Late st Contact Info) Description 09/03/2024 1:15 PM EST Pharmacy Pharmacy Hematology Oncology [address] [address] [facility] [place] Hem/Onc [address] [place] [facility] [place] [address] 09/03/2024 3:50 PM EST Telemedicine PAINT FACTORY WORKER [facility] 400 [facility] [place] [address] Shanti Cummings PA-Jamar [address] [place] [address] 09/06/2024 2:30 PM EST Hem/Onc Treatment Hematology/Oncology Treatment[address] [place] [phone] Rosario, Chair [address] Hem On[address] [place], [place] [address] 09/08/2024 11:00 AM EST Office Visit Palliative Medicine [address], [place] [phone] [address] MD 400 [place] [address] 09/13/2024 8:45 AM EDT Hem/Onc Treatment Hematology/Oncology Treatment[address], [place] [address] Rosario, Chair 9 Hem Onc [facility] [address] [place] [address] [place], [place] [address] 09/20/2024 7:50 AM EDT Laboratory Laboratory [facility] [address] [place], [place] [phone] Rosario, Lab [facility] 200 [facility] [place], [place] [address] 09/20/2024 8:30 AM EDT Office Visit Hematology/Oncology [facility] [address] [place], [place] [phone] Belinda Christianson CRNP 400 [place] [address] 09/20/2024 9:00 AM EDT Hem/Onc Treatment Hematology/Oncology Treatment, [place] [address] [place] [address] Rosario, Chair 6 Hem Onc Scenery [address] [place] [address] 11/16/2024 8:45 AM EDT Telemedicine Genetics HemOnc, [facility] [address] [place] [address] [place] Perez, [place] [address] [place] [address] 11/30/2024 9:00 AM EDT Office Visit Sleep Disorders Ctr [facility] [address] [place] [address] Silvia Holt CRNP [address] [place] [address] 02/09/2025 9:00 AM EDT Office Visit Family Medicine [address] [address] Lashawn Mejia MD [address] [place] [address] [place] [address] 03/02/2025 10:40 AM EDT Telemedicine Neurology [address] [place] [address] Clif Mckeon MD 100 [address] [facility] [place] [address] Scheduled Procedures [...] 023, 12/14/2020, 10/21/2007 CKD PHOS USE SMARTSET 81464 12/26/202312/06, 01/16/2016, 02/16/2015, Additional history exists HbA1c 12/26/2023 12/25/2022, 07/0 07/2021, 12/14/2020, Additional history exists Influenza Vaccine (FLU shot) (#1) 2024 05/14/2010 GFR 02/27/2025 08/30/2024, 08/07, 08/04/2024, Additional history exists CKD HGB USE SMARTSET 89282 08/30/202508/30, 08/30/2024, 08/17/2024, Additional history exists TSH [...] this encounter Medical Devices Implanted Type Area Residential Real Estate Agent Device Identifier Shelf Expiration Date Model / Serial / Lot Port Implant W8f Poly Cath - [id number] Implanted:Qty : 1 on 09/05/2023 by Orville Zendejas MD at [facility] Right: Chest CR BARD : PERIPHERAL VASCULAR [id number] 06/05/2024 [id number] / / [id number] documented as of this encounter Advance Directives * Full Code (Latest Code Status on File) Date Activated Date Inactivated Comments 02/19/2022 1:10 PM 02/19/2022 8:22 PM This order r eflects the patients wishes and were consensually agreed upon. Question Answer Comments Discussion of Advance Directives occurred with: Not Discussed Care Teams Clinical Trial Assistant Relationship Specialty Start Date End Date Lashawn Mejia MD [address] [place] [address] [place] [address] PCP - General Family Medicine 09/22/20 documented as of this encounter
--- OUTSIDE RECORDS SUMMARY | 2024-10-01 03:26 | External Medical Summary | Summary of Care ---
Author Name Unknown Organization [facility] Address [address] [place] [address] Phone [phone] Care Team Providers Care Menhaden Vessel Pilot Name Role Phone Lashawn Mejia MD Primary Care Prov ider Reason for Visit * Reason Onset Date Comments Medication Update 09/01/2024 Encounter Details Date Type Department Care Team (Late st Contact Info) Description 09/01/2024 Telephone Hematology/Oncology, [facility] [address] [place] [address] Flaquita Wilson MD [address] [place], [place] [phone] Medication Update Allergies Active Allergy Reactions Criticality [...] administration of oral chemotherapy. 30 Tablet 3 Active Prochlorperazine Maleate 10 MG Oral Tablet (Compazine)Indica tions:Endometrial cancer (HCC) Take 1 Tablet by mouth every 6 hours as needed for Nausea. 30 Tablet 3 025 Active Urea 20 % External Cream (Urea 20 Intensive Hydrating)Indicat ions:Endometrial cancer (HCC) Apply topically to affected area 2 times a day. 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 Steve Garciama 20mg order is scheduled for delivery at this time; shipment pending. [facility] Online Provider Portal CHON Morejon Transformation Architect Pharmacy Hematology Oncology Oral Chemotherapy Clinic Medication Therapy Disease Management [facility] 09/01/24 11:06 AM Time Spent on Encounter: < 5 minutes documented in this encounter Plan of Treatment Upcoming Encounters Date Type Department Care Team (Late st Contact Info) Description 09/02/2024 9:20 AM EST Telemedicine Neurology Catal[facility] Ort[facility] [place] [address] [place] [address] Clif Mckeon MD [address] [place] [address] 09/03/2024 1:15 PM EST Pharmacy Pharmacy Hematology Oncology [facility] [address] [place] [address] [facility] Hem/Onc [address] [place] [address] 09/03/2024 3:50 PM EST Telemedicine HOUSE CALLS NURSE Urology [facility] [place] 400 [facility] [place], [place] [phone] Shanti Cummings PA-C [address] [place] [address] 09/06/2024 2:30 PM EST Hem/Onc Treatment Hematology/Oncology Treatment, [address] [address] Rosario, Chair 2 Hem Onc [address] [address] 09/08/2024 11:00 AM EST Office Visit Palliative Medicine [facility] [address] [address] MD 400 [place], [place] [phone] 09/13/2024 8:45 AM EDT Hem/Onc Treatment Hematology/Oncology Treatment, [place] 200 [facility], [place] [phone] Rosario, Chair 9 Hem Onc Scenery 200 [facility] [place] [address] 09/20/2024 7:50 AM EDT Laboratory Laboratory [facility] Rosario [place] [address] [place] [phone] Rosario, Lab [facility] 200 [facility] [place], [place] [address] 09/20/2024 8:30 AM EDT Office Visit Hematology/Oncology [facility] [place] 200 [facility] [place], [place] [phone] Belinda Christianson CRNP [address] [place] [address] 09/20/2024 9:00 AM EDT Hem/Onc Treatment Hematology/Oncology Treatment, [place] 200 [facility], [place] [address] Rosario, Chair 4 Hem Onc [facility] 200 [facility] [place], [place] [address] 09/22/2024 2:45 PM EDT Nurse Only Hematology/Oncology Treatment[address], [place] [phone] Rosario, Chair 11 Hem Onc Scenery 200 [facility] [place], [place] [address] 11/16/2024 8:45 AM EDT Telemedicine Genetics HemOnc, [facility] [address] [place] [address] Nat Perez, [place] [address] [place] [address] 11/30/2024 9:00 AM EDT Office Visit Sleep Disorders Ctr [facility] 132 [facility] [place] [phone] Silvia Holt CRNP [address] [place] [address] 02/09/2025 9:00 AM EDT Office Visit Family [address] [place] [address] Lashawn Mejia MD [address] [place] [address] [place] [address] Scheduled Procedures Name Priority Associated Diagnoses Date/Ti [...] 023, 12/14/2020, 10/21/2007 CKD PHOS USE SMARTSET 93689 12/26/202312/06, 01/16/2016, 02/16/2015, Additional history exists HbA1c 12/26/2023 12/25/2022, 07/07/2021, 12/14/2020, Additional history exists Influenza Vaccine (FLU shot) (#1) 2024 05/14/2010 GFR 02/27/2025 08/30/2024, 08/07, 08/04/2024, Additional history exists CKD HGB USE SMARTSET 73595 08/30/202508/30, 08/30/2024, 08/17/2024, Additional history exists TSH [...] this encounter Medical Devices Implanted Type Area Train Operations Supervisor Device Identifier Shelf Expiration Date Model / Serial / Lot Port Implant W8f Poly Cath - [id number] Implanted:Qty : 1 on 09/05/2023 by Orville Zendejas MD at [facility] Right: Chest CR BARD : PERIPHERAL VASCULAR [id number] 06/05/2024 [id number] / / [id number] documented as of this encounter Advance Directives * Full Code (Latest Code Status on File) Date Activated Date Inactivated Comments 02/19/2022 1:10 PM 02/19/2022 8:22 PM This order r eflects the patients wishes and were consensually agreed upon. Question Answer Comments Discussion of Advance Directives occurred with: Not Discussed Care Teams Menhaden Vessel Pilot Relationship Specialty Start Date End Date Lashawn Mejia MD [address] [place] [address] [place] [address] PCP - General Family Medicine 09/22/20 documented as of this encounter
--- OUTSIDE RECORDS SUMMARY | 2024-10-01 03:26 | External Medical Summary | Summary of Care ---
Author Name Unknown Organization [facility] Address [address] [place] [address] Phone [phone] Care Team Providers Care Digital Producer Name Role Phone Lashawn Mejia MD Primary Care Prov ider Encounter Details Date Type Department Care Team (Late st Contact Info) Description 09/03/2024 3:50 PM EST Telemedicine SUPER[facility]OR [facility] Urology [place] Elana Posadas 400 [facility] [place] [address] Shanti Cummings PA-C [address] [place] [address] Urge incontinence of urine*; Urinary urgency; Nocturia Allergies Active Allergy Reactions Criticality Noted Date [...] the morning. 30 Tablet 11 025 Active oxyBUTYnin Chloride ER 5 MG Oral [...] to determine if the biopsy if territory representative. B. 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 I was in a hospital or clinic location. After connecting through televideo,patient was verified with two unique identifiers. Patient (or authorized legal territory representative) was then informed that this was a Telemedicine visit and being conducted confidentially over secure lines. Methods to assure confidentiality were taken. Patient acknowledged consent and understanding of pr ivacy and security of the Telemedicine visit. The patient agreed to participate. Lissette CARY presents for a follow up visit at [facility]. She was previously seen for (N39.41) Urge incontinence of urine (primary encounter diagnosis) (R39.15) Urinary urgency (R35.1) Nocturia Since last seen, Lissette has been taking oxybutynin ER 5mg daily. Urge incontinence is improved. Daytime frequency every 1.5 hours with urgency. Nocturia 4x nightly. Denies sense of incomplete bladder emptying. Bowels moving well. Denies side effects. She would like to discuss increase dose. Review of patient's allergies indicates: Allergen Reactions Gabapentin Neuro complications (Please comment) and Tachycardia Hallucinations Current Outpatient Medications Medication Sig Dispense Refill [...] taking: Reported on 07/13/2024) 30 Tablet 5 oxyBUTYnin Chloride ER 5 MG Oral [...] mouth in the morning. 60 Each 5 Nortriptyline HCl 50 MG Oral Capsule (Pamelor) Take 1 Capsule by mouth at bedtime. 30 Capsule 5 No current facility-administered medications for this visit. ROS: Per HPI Impression: This is a 59 year old with (N39.41) Urge incontinence of urine (primary encounter diagnosis) (R39.15) Urinary urgency (R35.1) Nocturia Plan: Discussed increase dose of oxybutynin ER to 10mg daily. Continue limiting caffeine intake and practicing daily kegel exercises. RTC in 3 months or sooner as needed. I spent a total of 10-19 minutes (exact time 15 mins) on the date of service in preparation, delivery, and documentation of the care provided to Lissette CARY excluding any time spent in the performance of separately billed services. Shanti Cummings PA-C 09/03/2024 3:57 PM Shanti Cummings PA-C SUPERVISOR CYTOGEN[facility] LABORATORY Urology Elana Wu [address] [place] [address] documented in this encounter Plan of Treatment Upcoming Encounters Date Type Department Care Team (Late st Contact Info) Description 09/06/2024 1:15 PM EST Pharmacy Pharmacy Hematology Oncology [facility] [address] [place] [address] [facility] Hem/Onc [address] [place] [address] 09/06/2024 2:30 PM EST [facility] 200 [place] [phone] Rosario, Chair 2 Hem Onc [facility] 200 [facility] [place] [address] 09/08/2024 11:00 AM EST Office Visit Palliative Medicine [address] [place] [phone] [address] MD 400 [place], [place] [phone] 09/13/2024 8:45 AM EDT Hem/Onc Treatment Hematology/Oncology Treatment[address] [place] [phone] Rosario, Chair 9 Hem Onc [facility] 200 [facility] [place], [place] [address] 09/20/2024 7:50 AM EDT Laboratory Laboratory [facility] Rosario [place] [address] [place], [place] [phone] Rosario, Lab [address] [place], [place] [address] 09/20/2024 8:30 AM EDT Office Visit Hematology/Oncology [facility] [place] [address] [place], [place] [phone] Belinda Christianson CRNP [address] [place], [place] [phone] 09/20/2024 9:00 AM EDT Hem/Onc Treatment Hematology/Oncology Treatment, [place] [address] [place] [address] Park, Chair 6 Hem Onc Scenery [address] [place] [address] 11/16/2024 8:45 AM EDT Telemedicine Genetics HemOnc, [facility] [address] [place] [phone] Nat Perez, [place] [address] [place] [address] 11/30/2024 9:00 AM EDT Office Visit [facility] [address] Silvia Holt CRNP [facility] [address] 02/09/2025 9:00 AM EDT Office Visit Family Medicine [address] [phone] Lashawn Mejia MD [address] [place] [address] [place] [address] 03/02/2025 10:40 AM EDT Telemedicine Neurology [address] [place] [address] Clif Mckeon MD 100 N [facility] [place] [phone] Scheduled Procedures Name Priority Associated Diagnoses Date/Ti [...] 023, 12/14/2020, 10/21/2007 CKD PHOS USE SMARTSET 85078 12/26/2023 0607/2022, 01/16/2016, 02/16/2015, Additional history exists HbA1c 12/26/2023 12/25/2022, 0707/2021, 12/14/2020, Additional history exists Influenza Vaccine (FLU shot) (#1) 2024 05/14/2010 GFR 02/27/2025 08/30/2024, 08/07, 08/04/2024, Additional history exists CKD HGB USE SMARTSET 99663 08/30/202508/30, 08/30/2024, 08/17/2024, Additional history exists TSH [...] this encounter Medical Devices Implanted Type Area Custodial Manager Device Identifier Shelf Expiration Date Model / Serial / Lot Port Implant W8f Poly Cath - [id number] Implanted:Qty : 1 on 09/05/2023 by Orville Zendejas MD at [facility] Right: Chest CR BARD : PERIPHERAL VASCULAR [id number] 06/05/2024 [id number] / / [id number] documented as of this encounter Visit Diagnoses Diagnosis Urge incontinence of urine- Primary Urge incontinence Urinary urgency Urgency of urination Nocturia documented in this encounter Advance Directives * Full Code (Latest Code Status on File) Date Activated Date Inactivated Comments 02/19/2022 1:10 PM 02/19/2022 8:22 PM This order r eflects the patients wishes and were consensually agreed upon. Question Answer Comments Discussion of Advance Directives occurred with: Not Discussed Care Teams Digital Producer Relationship Specialty Start Date End Date Lashawn Mejia MD [address] [place] [address] [place] [phone] PCP - General Family Medicine 09/22/20 documented as of this encounter
--- OUTSIDE RECORDS SUMMARY | 2024-10-01 03:27 | External Medical Summary | Summary of Care ---
Author Name Unknown Organization [facility] Address [address] [place] [address] Phone [phone] Care Team Providers Care Auto Servicer Name Role Phone Lashawn Mejia MD Primary Care Prov ider Reason for Visit * Reason Comments Medication Management * Evaluate & Treat - Unlimited Visits (Within 10 days (routine)) - Authorized Specialty Diagnoses / Procedures Referred By Radha santana Referred To Contact Pharmacist / Pharmacy Diagnoses Endometrial cancer (HCC) Dinorah Garcia, [facility] [address] [place] [address] Phone: tel: fax: Referral ID Status Reason Start Date Expiration Date Visits Requested Visits Authorized [id number] Authorized Specialty Services Required 08/30/2024 99 99 Encounter Details Date Type Department Care Team (Late st Contact Info) Description 08/30/2024 1:30 PM [facility] Pharmacy Pharmacy Hematology Oncology [facility] [address] [place] [address] [place] Hem/Onc [address] [place] [address] Endometrial cancer (HCC)* Allergies Active Allergy Reactions Criticality Noted Date Comments Gabapentin Neuro complications (Please comment),Tachycardia 02/06/2023 Hallucinations documented as of this encounter (statuses as of 08/30/2024) Medications Ondansetron HCl 8 MG Oral TabletIndications [...] the morning. 60 Each 5 025 Active documented as of this encounter (statuses as of 08/30/2024) Active Problems Problem Noted Date Diagnosed Date Encounter for antineoplastic chemotherapy 2023 Vulvar irritation 05/12/2023 Overview (05/12/2023): BIOPSY (05/06/2023) -- BENIGN A. Skin, right vulva, biopsy: Benign mature sebaceous glands with minimal inflammation. Negative for dysplasia and malignancy. Comment: The findings are non-specific, although sebaceous hyperplasia was considered. Clinical correlation is required to determine if the biopsy if ambulatory service representative. B. Skin, left vulva, biopsy: [...] as of this encounter (statuses as of 08/30/2024) Resolved Problems Problem Noted Date Diagnosed Date [...] as of this encounter (statuses as of 08/30/2024) Immunizations Name Administration Dates Next Due Seasonal [...] No 04/27/2024 Does the household have a [facility] new[facility] joy hospitalr source of income? 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 - 08/30/2024 12:56 PM EST Deontevatinib RX sent to [facility] Specialty Urea cream, ondansetron, and prochlorperazine [facility] up in 2 days to assess RX status Dinorah Garcia PharmD, OP Clinical Pharmacist, [facility] Oral Chemotherapy [facility] 08/30/2024, 12:57 PM Time Spent on Encounter: 6 - 10 minutes Encounter Group: Oncology Encounter Interventions Item Category: Oral Chemotherapy Lenvatinib Problem/Rationale: Dorado Plan Review: Clinical Review Pharmacist Intervention(s): Medication prescribed Magnitude of Intervention: Modification of medication for asymtomatic patients (Level 2) * Sosa Tineo PHARM Tech - 08/30/2024 11:50 AM EST MEDICATION THERAPY MANAGEMENT LENVATINIB TREATMENT STATUS NOTE Lissette CRAY [id number] Patient Phone Numbers Communication: Chart review Treatment: Medication: Lenvatinib (Lenvima) Indication/Staging/Diagnosis Code: endometrial cancer / C54.1 Dose: 20mg daily Administration: +/- food Start Date: TBD Primary Base Loader/Oncologist: Dr. Wilson Assessment and Plan: Per OV 08/17/24, pt has 2nd opinion appt at [facility] [place] 08/24/24 Per discussion with STEPHEN Shook, [facility] and pt agreeable with current treatment plan Yes/no Date Action Taken Dorado plan entered? yes 08/25/24 Consent completed? yes 08/17/24 Intro/med rec completed? yes 08/27/24 Precert completed? yes 08/25/24 Test claim completed? yes 08/25/24 Rx to [facility] Financial assistance needed? N/A Physician signature? yes Rx released? Education completed? [facility] will contact patient once med shipped/received to complete medication education Please refer to initial intake note for detailed review of regimen and patient- specific education points Sosa Tineo, erosion control coordinator [employer] Hematology Oncology Oral Chemotherapy Clinic Medication Therapy Disease Management [facility] 08/30/24,12:06 PM Time Spent on Encounter: < 5 minutes documented in this encounter Plan of Treatment Upcoming Encounters Date Type Department Care Team (Late st Contact Info) Description 09/01/2024 10:00 AM EST Office Visit Palliative Medicine [place] Rosario [place] 200 [facility] [place] [address] MD 400 [place], [place] [phone] 09/01/2024 1:15 PM EST Pharmacy Pharmacy Hematology Oncology [facility] [address] [place] [address] [place] Hem/Onc [address] [place] [address] 09/02/2024 9:20 AM EST Telemedicine Neurology [place] [address] [place] [address] Clif Mckeon MD [address] [place] [address] 09/03/2024 3:50 PM EST Telemedicine BORING MACHINE OPERATOR HELPER Urology [facility] 400 [place], [place] [phone] Shanti Cummings PA-C [address] [place] [address] 09/06/2024 2:30 PM EST Hem/Onc Treatment Hematology/Oncology Treatment, [address] [place] [address] Rosario, Chair 2 Hem Onc [place] [address] [address] [place] [address] 09/13/2024 8:45 AM EDT Hem/Onc Treatment Hematology/Oncology Treatment, [address], [place] [address] Rosario, Chair 9 Hem Onc Scenery [address] [place] [address] 09/20/2024 7:50 AM EDT Laboratory Laboratory [facility] [place] [address] [place] [phone] Rosario, Lab [facility] 200 [facility] [place], [place] [address] 09/20/2024 8:30 AM EDT Office Visit Hematology/Oncology [facility] [place] [address] [place] [phone] Belinda Christianson CRNP 400 [facility] [phone] 09/20/2024 9:00 AM EDT Hem/Onc Treatment Hematology/Oncology Treatment, [address], [place] [phone] Rosario, Chair 4 Hem Onc [facility] 200 [facility] [place], [place] [address] 09/22/2024 2:45 PM EDT Nurse Only Hematology/Oncology Treatment, [address], [place] [phone] Rosario, Chair 11 [facility] 200 [facility] [place], [place] [address] 11/16/2024 8:45 AM EDT Telemedicine Genetics HemOnc, [facility] [address] [place] [address] Nat Perez, [place] [address] [place] [address] 11/30/2024 9:00 AM EDT Office Visit Sleep Disorders Ctr [facility] 132 [facility] [place] [phone] Silvia Holt CRNP 132 [facility] [place] [address] 02/09/2025 9:00 AM EDT Office Visit Family Medicine [address] [place] [address] Lashawn Mejia MD [address] [place] [address] [place] [address] Scheduled Procedures Name Priority Associated Diagnoses Date/Ti me SIGMOIDOSCOPY FLEXIBLE DIAGNOSTIC Recall Endometrial cancer (HCC) Scheduled Referrals Name Type Priority Associated Diagnoses Orde r Schedule PHARMACIST MEDS THERAPY MGMT REFERRAL OP Referral Within 10 days (routine) Endometrial cancer (HCC) Ordered: 08/30/2024 Health Maintenance Due Date Last Done Comments [...] 023, 12/14/2020, 10/21/2007 CKD PHOS USE SMARTSET 69324 12/26/2023 06/2 07/2022, 01/16/2016, 02/16/2015, Additional history exists HbA1c 12/26/2023 12/25/2022, 07/0 07/2021, 12/14/2020, Additional history exists Influenza Vaccine (FLU shot) (#1) 2024 05/14/2010 TSH 03/21/2024 03/21/2023, 08/0 09/2022, 12/25/2022, Additional history exists GFR 02/27/2025 08/30/2024, 08/07, 08/04/2024, Additional history exists CKD HGB USE SMARTSET 31505 08/30/202508/30, 08/30/2024, 08/17/2024, Additional history exists Lipid [...] this encounter Medical Devices Implanted Type Area Speed Winder Device Identifier Shelf Expiration Date Model / Serial / Lot Port Implant W8f Poly Cath - [id number] Implanted:Qty : 1 on 09/05/2023 by Orville Zendejas MD at [facility] Right: Chest CR BARD : PERIPHERAL VASCULAR [id number] 06/05/2024 [id number] / / [id number] documented as of this encounter Visit Diagnoses [...] Directives occurred with: Not Discussed Care Teams Auto Servicer Relationship Specialty Start Date End Date Lashawn Mejia MD [address] [place] [address] [place] [phone] PCP - General Family Medicine 09/22/20 documented as of this encounter
--- OUTSIDE RECORDS SUMMARY | 2024-10-01 03:27 | External Medical Summary | Summary of Care ---
Author Name Unknown Organization [facility] Address [address] [place] [address] Phone [phone] Care Team Providers Care Aquatics Specialist Name Role Phone Lashawn Mejia MD Primary Care Prov ider Reason for Referral * Evaluate & Treat - Unlimited Visits (Within 10 days (routine)) - Authorized Specialty Diagnoses / Procedures Referred By Radha santana Referred To Contact Pharmacist / Pharmacy Diagnoses Endometrial cancer (HCC) Mavis Garcia, [facility] [address] [place] [address] Phone: tel: fax: Referral ID Status Reason Start Date Expiration Date Visits Requested Visits Authorized [id number] Authorized Specialty Services Required 08/30/2024 99 99 Question Answer Referral Priority Within 10 days (routine) Where should this appointment be scheduled? Yolanda Referring Provider Role: Specialist Specialty: Heme/Onc Reason for Referral: Oral Chemo Has consent been obtained for new oral chemo agent(s)? Yes Comments ORAL CHEMOTHERAPY MTDM MONITORING REFERRAL This patient is being referred to the Oral Chemotherapy Clinic for medication co-management. The planned duration of treatment is: Until disease progression/toxicity Please start oral chemotherapy: Once therapy has arrived from specialty pharmacy Oral Chemotherapy Monitoring will continue until one of the following discharge criteria has been met. The provider will be informed if any of these occur. 1. Disease progression. 2. Patient non-compliance 3. Compliance and tolerating treatment well without major toxicities with routine provider follow up. 4. Completion of therapy. Additional Comments: N/A By my signature, I understand that my patient will have their medication therapy managed by the [facility] Medication Therapy Disease Management [facility] ([facility]) per established policies, procedures, and protocols. I also certify that this referral may serve as an initiation of service for the management of drug therapy in the above noted patient. [facility] providers will be responsible for scheduling patient visits, obtaining appropriate laboratory studies, and adjusting medication management therapy per patient's need, in addition to those roles spelled out in the clinic policy, procedures, and drug management protocols. I understand that the service provided by the [facility] Clinic is voluntary and have informed patient that they can refuse the service at their discretion. I am aware that the [facility] Clinic will provide me with a copy of the patient encounter via my [employer]. I authorize the [facility] to carry out these activities on my behalf. I consider this program to be a necessary part of the patient's medical care. * Precert (Diagnostic Medical) (Within 10 days (routine)) - Closed Specialty Diagnoses / Procedures Referred By Contac t Referred To Contact Cardiac Studies Diagnoses Endometrial cancer (HCC) Procedures ECHO, COMPLETE (2D), TRANS-THORACIC Mavis Garcia, [facility] [address] [place] [address] Phone: tel: fax: Referral ID Status Reason Start Date Expiration Date V isits Requested Visits Authorized [id number] Closed Precert 09/01/2024 1 1 Encounter Details Date Type Department Care Team (Late st Contact Info) Description 08/25/2024 Orders Only Hematology/Oncology State Amy Stark [address] [place] [address] [phone] Flaquita Wilson MD [address] [place] [address] Endometrial cancer (HCC)* Allergies Active Allergy Reactions [...] before bedtime. 120 Tablet 3 025 Active Ondansetron HCl 8 MG Oral [...] the morning. 60 Each 5 025 Active Lisinopril 5 MG Oral Tablet (Prinivil)Indicat ions:HTN, goal below 140/90 Take by mouth 1 Tablet in the morning. 90 Tablet 1 023 2024 Disconti nued(Ref ill) clonazePAM 0.5 MG Oral Tablet (KlonoPIN)Indicat ions:RLS (restless legs syndrome) Take 1-2 tablets per mouth at bedtime. 60 Tablet 2 024 2024 Disconti nued(Ref ill) oxyCODONE-Acetami nophen 5-325 MG Oral Tablet (Percocet)Indicat ions:Endometrial cancer (HCC) Take 1 Tablet by mouth every 4 hours as needed for Pain, Moderate. 30 Tablet 025 2024 Disconti nued(Ref ill) documented [...] required to determine if the biopsy if industrial relations representative. B. 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 Not on file Not on file documented as of this encounter Miscellaneous Notes * Addendum Note - Mavis Garcia RPh - 08/30/2024 12:56 PM ESTAddended by: MAVIS GARCIA on: 08/30/2024 12:56 PM Modules accepted: Orders documented in this encounter Plan of Treatment Upcoming Encounters Date Type Department Care Team (Late st Contact Info) Description 09/01/2024 10:00 AM EST Office Visit Palliative Medicine [facility] [address] [place] [address] MD [address] [facility] [place] [phone] 09/01/2024 1:15 PM EST Pharmacy Pharmacy Hematology Oncology [facility] [address] [place] [address] [facility] Hem[facility]Onc [address] [place] [address] 09/02/2024 9:20 AM EST Telemedicine Neurology Catalino Ortiz [place] [address] [place] [address] Clif Mckeon MD [address] [place] [address] 09/03/2024 3:50 PM EST Telemedicine MANAGER [facility] [address] [place] [phone] Shanti Cummings PA-C [address] [place] [address] 09/06/2024 2:30 PM EST Hem/Onc Treatment Hematology/Oncology Treatment, [place] 200 [facility], [place] [phone] Rosario, Chair 2 Hem Onc Scenery [address] [place], [place] [address] 09/13/2024 8:45 AM EDT Hem/Onc Treatment Hematology/Oncology Treatment, [place] 200 [facility] Domitila [place], [place] [phone] Rosario, Chair 9 Hem Onc Scenery [address] [place], [place] [address] 09/20/2024 7:50 AM EDT Laboratory Laboratory [facility] Rosario [place] [address] [place] [phone] Rosario, Lab Scenery [address] [facility] [place] [address] 09/20/2024 8:30 AM EDT Office Visit Hematology/Oncology Scenery Rosario [place] [address] [place], [place] [phone] Belinda Christianson CRNP [address] [facility] [address] 09/20/2024 9:00 AM EDT Hem/Onc Treatment Hematology/Oncology Treatment, [place] 200 [facility], [place] [phone] Rosario, Chair 4 Hem Onc Scenery [address] [place], [place] [address] 09/22/2024 2:45 PM EDT Nurse Only Hematology/Oncology Treatment, [place] [address] [facility], [place] [phone] Rosario, Chair 11 Hem Onc Scenery [address] [place], [place] [address] 11/16/2024 8:45 AM EDT Telemedicine Genetics HemOnc, [facility] [address] [facility] [place] [address] Nat Perez, [place] [address] [facility] [place] [address] 11/30/2024 9:00 AM EDT Office Visit Sleep Disorders Ctr [facility] [address] [place] [phone] Silvia Holt CRNP [address] [place] [address] 02/09/2025 9:00 AM EDT Office Visit Family [address] [place] [phone] Lashawn Mejia MD [address] [place] [address] [place] [phone] Scheduled Orders Name Type Priority Associated Diagnoses Orde r Schedule EKG EKG Routine Endometrial cancer (HCC) Expected: 08/26/2024 (Approximate), Expires: 09/22/2024 TSH WITH FREE T4 IF INDICATED Lab STAT Endometrial cancer (HCC) Other, Please specify in Comments field for 13 Occurrences starting 08/30/2024 until 08/30/2025 COMPREHENSIVE METABOLIC PANEL Lab STAT Endometrial cancer (HCC) Every 3 Weeks for 15 Occurrences starting 08/30/2024 until 08/30/2025 URINALYSIS, REFLEX TO MICROSCOPIC Lab STAT Endometrial cancer (HCC) Every 3 Months for 4 Occurrences starting 08/30/2024 until 08/30/2025 BLOOD PRESSURE Procedures STAT Endometrial cancer (HCC) Other, Please specify in Comments field for 17 Occurrences starting 08/30/2024 until 08/30/2025 Scheduled Procedures Name Priority Associated Diagnoses Date/Ti [...] 023, 12/14/2020, 10/21/2007 CKD PHOS USE SMARTSET 74092 12/26/20232 07/2022, 01/16/2016, 02/16/2015, Additional history exists HbA1c 12/26/2023 12/25/2022, 07/0 07/2021, 12/14/2020, Additional history exists Influenza Vaccine (FLU shot) (#1) 2024 05/14/2010 TSH 03/21/2024 03/21/2023, 08/0 09/2022, 12/25/2022, Additional history exists GFR 02/27/2025 08/30/2024, 08/07, 08/04/2024, Additional history exists CKD HGB USE SMARTSET 05503 08/30/202508/30, 08/30/2024, 08/17/2024, Additional history exists Lipid [...] this encounter Medical Devices Implanted Type Area Sales Analytics Manager Device Identifier Shelf Expiration Date Model / Serial / Lot Port Implant [id number] Poly Cath - [id number] Implanted:Qty : 1 on 09/05/2023 by Orville Zendejas MD at [facility] Right: Chest CR BARD : PERIPHERAL VASCULAR [id number] 06/05/2024 [id number] / / [id number] documented as of this encounter Results * ECHO, COMPLETE (2D), TRANS-THORACIC (08/26/2024 12:17 PM EST) LEFT VENTRICULAR EJECTION FRACTION 60 % [facility] 08/26/2024 11:0 0 AM EST Flaquita Wilson MD ECHOCARDIOLOGY Final Re sult [facility] documented in this encounter Visit Diagnoses Diagnosis [...] Directives occurred with: Not Discussed Care Teams Aquatics Specialist Relationship Specialty Start Date End Date Lashawn Mejia MD [address] [place] [address] [place] [address] PCP - General Family Medicine 09/22/20 documented as of this encounter
--- OUTSIDE RECORDS SUMMARY | 2024-10-01 03:27 | External Medical Summary | Summary of Care ---
Author Name Unknown Organization [facility] Address [address] [place] [address] Phone [phone] Care Team Providers Care Network Lead Name Role Phone Lashawn Mejia MD Primary Care Prov ider Encounter Details Date Type Department Care Team (Late st Contact Info) Description 08/30/2024 11:00 AM EST Office Visit Hematology/Oncology [facility] [place] [address] [facility] [place] [address] Flaquita [place] MD [address] [place] [address] Endometrial cancer (HCC)*; Other iron deficiency anemia Allergies Active Allergy Reactions Criticality Noted Date Comments Gabapentin Neuro complications (Please comment),Tachycardia 02/06/2023 Hallucinations documented as of this encounter (statuses as of 08/30/2024) Medications Ondansetron HCl 8 MG Oral TabletIndications: Endometrial cancer (HCC) Take 1 Tablet by mouth every 8 hours as needed for Nausea. 30 Tablet 08/26/19 Active Additional Information Patient not taking.Reported on 07/13/2024 Lidocaine-Prilocai ne 2.5-2.5 % External Cream (Emla)Indications: Endometrial cancer (HCC) APPLY TO SKIN OVER MEDIPORT & COVER 1HR PRIOR TO ACCESSING. 30 g 1 03/04/20 24 Active Additional Information Patient not taking.Reported [...] 07/13/2024 Nortriptyline HCl 25 MG Oral Capsule (Pamelor)Indicatio ns:Chemotherapy-in duced peripheral [...] to determine if the biopsy if patient representative. B. Skin, left vulva, biopsy: Mild [...] as of this encounter Progress Notes * Steve, Flaquita Becerra MD - 08/30/2024 11:28 AM EST Outpatient Consult Note Data Source: Patient, Epic record. Data Source: Patient, Epic record. 08/30/2024 11:28 AM Lissette CARY [id number] 59 year old Patient Encounter: HEMATOLOGY/ONCOLOGY [facility] Cancer Diagnosis: Recurrent endometrial cancer Current Treatment: lenvatinib and pembrolizumab Previous Treatment: 12/2021 - underwent robotic assisted total laparoscopic hysterectomy with bilateral salpingo-oophorectomy for uterus and bilateral sentinel pelvic lymph node dissection. 3 cycles of combination chemotherapy including combination of carboplatin plus paclitaxel followed by the radiation therapy and 3 more cycles after the completion of radiation therapy. She received 3 cycles of chemotherapy and received radiation therapy. She completed radiation therapy on 01/02/2024. Postradiation chemotherapy started Taxol/Carbo combination. Because of the significant neuropathy despite dose reduction Taxol was omitted and was treated with single agent carboplatin. She received last chemotherapy on 03/10/2024. Oncologic History : 59-year-old female with a history of multiple medical problems including dyslipidemia, obesity, hypertension was referred with the above diagnosis. Patient presented to [facility] 12/[facility]/2021 with complaints of postmenopausal bleeding intermittently for 3months accompanied by pelvic pain. She saw her PCP with similar complaints at which time a TVUS wasordered showing a 4mm polyp and 12mm endometrial lining. At her [facility] cutter hand appointment, an endometrial biopsy weas obtained revealing FIGO 2 endometrioid adenocarcinoma. She underwent robotic assisted totallaparoscopic hysterectomy with bilateral salpingo-oophorectomy for uterus and bilateral sentinel pelvic lymph node dissection. Pathology was consistent with endometrioid adenocarcinoma, FIGO 2 with focal squamous differentiation and superficial myometrium invasion, 1 mm/17 mm of myometrium, microsatellite stability was negative. Patient has stage pT1a pN0 disease. A. Left pelvic lymph nodes: One lymph node negative for metastasis (0/1). B. Right pelvic lymph nodes: One lymph node negative for metastasis (0/1). C. Uterus, cervix, bilateral tubes and ovaries: - Uterus: Endometrioid adenocarcinoma, FIGO 2, with focal squamous differentiation, mostly polypoid. Superficial myometrium invasion (1 mm/in 17 mm of myometrium). Focally extending to anterior lower uterine segment. Endometrial menstrual polyps. Leiomyomata, submucosal and intramural. Microsatellite instability: Negative. - Cervix: Negative for adenocarcinoma. - Bilateral ovaries: Negative for adenocarcinoma. - Bilateral fallopian tubes: Negative for adenocarcinoma. Hysterectomy Type: Laparoscopic, robotic-assisted Specimen Integrity: Intact Tumor Site: Endometrium Tumor Size: Greatest dimension in Centimeters (cm): 3.4cm Histologic Type: Endometrioid carcinoma, NOS Histologic Grade: FIGO grade 2 Myometrial Invasion: Present Depth of Myometrial Invasion: 1mm Myometrial Thickness: 17mm Regional Lymph Nodes: All regional lymph nodes negative for tumor cells Total Number of Pelvic Nodes Examined: 2 pT Category: pT1a: Tumor limited to endometrium or invading less than half the myometrium pN Category: pN0: No regional lymph node metastasis FIGO Stage (2018 FIGO Cancer Report): IA: No or less than half myometrial invasion Postoperatively, the patient requires no further treatment. She would episode of rectal bleeding and had colonoscopy done on 07/03/2023 which revealed Ulcerated mucosa with stigmata of recent bleeding were present in the sigmoid colon. Biopsy was positive foratypical glands most consistent with metastatic carcinoma of endometrial origin. FINAL DIAGNOSIS Colon, sigmoid (biopsy of a cratered ulcerated mucosa): - Atypical glands most consistent with metastatic carcinoma of endometrial origin, in light of the patient's clinical history of resected endometrial carcinoma. She had a CT scan of chest abdomen pelvis done on 07/22/2023 which revealed heterogeneous masslike enlargement of the uterus which extends to the endocervical canal highly concerning for neoplasm, the mass is inseparable from the urinary bladder anteriorly and sigmoid colon posteriorly concerning for invasion, there was 1 cm right common iliac lymph node which is stable without any new lymphadenopathy. Core biopsy from the masses positive for metastatic carcinoma favor endometrial adenocarcinoma. Final Diagnosis A. Pelvis, CT/US guided core needle biopsy: Adequacy: Satisfactory for evaluation. Category: Malignant. Interpretation: Metastatic carcinoma, favor endometrial adenocarcinoma Patient was seen by Dr. Triplett and he recommend sandwich therapy including 3 cycles of combination chemotherapy including combination of carboplatin plus paclitaxel followed by the radiation therapy and 3 more cycles after the completion of radiation therapy. She is complaining of vaginal and rectal bleeding she is also complaining of abdominal discomfort and pain specially lower abdomen. Patient denies smoking or drinking. Family history significant for mother was diagnosed of throat cancer and he was smoker. Father was diagnosed of prostate cancer. Her own daughter is diagnosed of brain tumor. Interval History: She is here to receive 1st dose of Keytruda today. She is complaining of generalized weakness, lightheadedness and continued to bleed. CBC done today shows hemoglobin 8.4 creatinine has increased to 1.5. Rest of the electrolytes and LFTs are within normal limit. Ferritin was 62 and trending downward with a low iron and transferrin saturation. LABS/IMAGING: Results for orders placed or performed in visit on 08/30/24 COMPREHENSIVE METABOLIC PANEL Result Value Ref Range BUN 29 (H) 6 - 20 mg/dL CREATININE 1.5 (H) 0.5 - 1.0 mg/dL EGFR 41 (L) >=60 mL/min SODIUM 141 135 - 146 mmol/L POTASSIUM 4.3 3.5 - 5.1 mmol/L CHLORIDE 106 98 - 107 mmol/L CO2 24 22 - 32 mmol/L ANION GAP 11 7 - 15 mmol/L GLUCOSE 104 70 - 120 mg/dL Albumin 3.9 3.8 - 5.0 g/dL AST 12 10 - 35 U/L Alkaline Phosphatase 82 35 - 130 U/L Bilirubin, Total 0.2 <=1.2 mg/dL CALCIUM 9.2 8.4 - 10.2 mg/dL Protein 7.0 6.0 - 8.3 g/dL ALT 10 10 - 35 U/L CBC Result Value Ref Range WBC 8.54 4.00 - 10.80 K/uL RBC 3.29 3.85 - 5.15 M/uL HGB 8.4 (L) 12.0 - 15.3 g/dL HCT 28.5 (L) 36.0 - 45.2 % MCV 86.6 81.5 - 97.5 fL MCH 25.5 27.0 - 34.0 pg MCHC 29.5 32.0 - 36.0 g/dL RDW 16.3 11.5 - 15.5 % PLT 395 140 - 400 K/uL MPV 7.9 6.6 - 11.1 fL DIFFERENTIAL, AUTOMATED Result Value Ref Range WBC 8.54 4.00 - 10.80 K/uL Neutrophils % 82.4 (H) 40.0 - 75.0 % Lymphocytes % 7.1 (L) 18.0 - 42.0 % Monocytes % 8.7 1.0 - 11.0 % Eosinophils % 1.6 0.0 - 6.0 % Basophils % 0.2 0.0 - 2.0 % Absolute Neutrophils 7.03 1.80 - 7.70 K/uL Absolute Lymphocytes 0.61 (L) 1.00 - 4.80 K/ul Absolute Monocytes 0.74 0.00 - 1.10 K/uL Absolute Eosinophils 0.14 0.00 - 0.70 K/uL Absolute Basophils 0.02 0.00 - 0.20 K/uL *Note: Due to a large number of results and/or encounters for the requested time period, some results have not been displayed. A complete set of results can be found in Results Review. REVIEW OF SYSTEMS: General: No Fever, chills, night sweats, or weight loss. HEENT: No change in visual acuity, blurred or double vision. No epistaxis, facial pain, nasal discharge or change in hearing. Denies dysphagia, no muscosal ulceration, or sores noted. Cardiovascular: No chest pain, MAHONEY, or palpitations Respiratory: No shortness of breath, cough, hemoptysis, or pleuritic chest pain Gastrointestinal: No abdominal pain, nausea, vomiting, diarrhea, rectal pain or bleeding Genitourinary: Denies Hematuria or dysuria Musculoskeletal: No bone pain Psychiatric: No vegetative signs of depression Endocrine: No symptoms of hypothyroidism or hyperglycemia Hematologic: No bleeding or lymph nodes noted As mentioned above, all of the systems were reviewed in full and are unremarkable. Past Medical History: Diagnosis Date Adult body mass index 50.0-59.9 (HCC) 09/21/2010 DDD (degenerative disc disease), cervical 12/16/2014 mild DDD C5-6 and C6-7 Dyslipidemia, goal LDL below 100 09/21/2010 Female stress incontinence Iron deficiency anemia Obesity, morbid (more than 100 lbs over ideal weight or BMI > 40) ([facility]) 08/24/2015 Other organic sleep apnea PONV (postoperative nausea and vomiting) Prediabetes 01/20/2016 Pseudotumor cerebri 05/09/2000 Restless legs syndrome Urge incontinence of urine 12/05/2011 Vitamin B deficiency Vitamin D deficiency Current Outpatient Medications Medication Sig Dispense Refill [...] mouth in the morning. 90 Tablet 1 No current facility-administered medications for this visit. Facility-Administered Medications Ordered in Other Visits Medication Dose Route Frequency Provider Last Rate Last Admin NSS infusion Intravenous PRN Flaquita [place] MD 50 mL/hr at 08/30/24 1040 Start Infusion at 08/30/24 1040 sodium chloride 0.9 % flush/inj 10 mL 10 mL IV Push PRN Flaquita [place] MD sodium chloride 0.9 % flush/inj 20 mL 20 mL IV Push PRN Flaquita [place] MD Pembrolizumab (Keytruda) 200 mg in NSS 100 mL infusion 200 mg IV Piggyback Once Flaquita [place] MD 226 mL/hr at 08/30/24 1114 200 mg at 08/30/24 1114 diphenhydrAMINE (Benadryl) inj 50 mg 50 mg IV Push Once PRN Flaquita [place] MD Hydrocortisone Sod Suc (PF) (Solu-Cortef) inj 100 mg 100 mg IV Push Once PRN Flaquita [place] MD EPINEPHrine 1 MG/ML inj 0.3 mg 0.3 mg Intramuscular Once PRN Flaquita [place] MD oxygen GAS Inhalation Oxygen Flaquita [place] MD NSS infusion 500 mL Intravenous Continuous Flaquita [place] MD hEParin 100 UNIT/ML Lock Flush inj 500 Units 5 mL IV Lock PRN Flaquita [place] MD sodium chloride 0.9 % flush central line 10 mL 10 mL IV Push PRN Flaquita [place] MD Iron Sucrose (Venofer) 300 mg in NSS 250 mL ivpb 300 mg IV Piggyback Once Flaquita [place] MD diphenhydrAMINE (Benadryl) inj 50 mg 50 mg IV Push Once PRN Flaquita [place] MD Hydrocortisone Sod Suc (PF) (Solu-Cortef) inj 100 mg 100 mg IV Push Once PRN Flaquita [place] MD EPINEPHrine 1 MG/ML inj 0.3 mg 0.3 mg Intramuscular Once PRN Flaquita [place] MD oxygen GAS Inhalation Oxygen Flaquita [place] MD Social History Tobacco Use Smoking status: Never Smokeless tobacco: Never Vaping Use Vaping status: Never Used Substance Use Topics Alcohol use: Yes Comment: occassional: very intermittent Drug use: No Review of patient's allergies indicates: Allergen Reactions Gabapentin Neuro complications (Please comment) and Tachycardia Hallucinations PHYSICAL EXAMINATION: General Appearance: Healthy appearing patient in no acute distress There were no vitals taken for this visit. Vitals reviewed. ASSESSMENT: 59-year-old female was referred with a diagnosis of recurrent endometrial cancer. She was initiallydiagnosed in 12/28/2021 when she presented with complaints of postmenopausal bleeding , an endometrial biopsy was obtained revealing FIGO 2 endometrioid adenocarcinoma. She underwent robotic assisted total laparoscopic hysterectomy with bilateral salpingo-oophorectomy for uterus and bilateral sentinel pelvic lymph node dissection. Pathology was consistent with endometrioid adenocarcinoma, FIGO 2 with focal squamous differentiation and superficial myometrium invasion, 1 mm/17 mm of myometrium, microsatellite stability was negative. Patient has stage pT1a pN0 disease. Postoperatively, the patient requires no further treatment. She continues to have issues with the vaginal and rectal bleeding. She had colonoscopy done which revealed ulcerated mucosa, the biopsy was consistent with metastatic carcinoma of endometrial origin.Follow-up CT scan revealed masslike enlargement which extending to the endocervical canal in the biopsies positive for recurrent endometrial carcinoma. CT scan of chest was negative. Patient was seen by [facility] hand Oncology Dr. Triplett who recommend chemotherapy and radiation therapy. Recommendation is 3 cycles of chemo followed by the radiation followed by 3 more cycles of chemo. She completed 3 cycles of chemotherapy including combination of Taxol and carboplatin and also completed radiation therapy. Postradiation therapy she received 3 cycles of single agent carboplatin. Because of the neuropathy Taxol was omitted. She received last dose of chemotherapy on 03/10/2024 She had a follow-up CT scan done on 08/13/2023 which revealed increase in the size of the mass measures approximately 5.7 x 3.9 x 3.4 cm, previously 5.3 x 3.4 x 3.1 cm when remeasured similarly, increased in size. This mass presumably reflects the patient's known recurrent endometrial cancer, new moderate right and mild left hydroureteronephrosis secondary to the mass. She has progressive disease after completion of chemotherapy and the radiation therapy. She is scheduled to receive 1st dose of Keytruda. She is complaining generalized weakness and fatigue. She continues to bleed and there is a decrease in the hemoglobin level. Ferritin level is trending downward with a low iron and transferrin saturation. She will benefit with the iron infusion. Discussed with the patient about diagnosis and reviewed the benefit, risk and side effects of the treatment. After discussion she agreed to proceed with Venofer weekly treatment for 4 weeks. PLAN: As above. She has follow-up appointment on 09/22/2024 The patient voiced understanding of all of the above. All questions and concerns were addressed in an apparently satisfactory manner. Flaquita [place] MD (This note was completed using the dictation program Fluency Direct. As such, there may be misspellings, word substitutions, or other variations that should not change the essence of the clinical content of this encounter note. If there is need for further clarification, please direct questions to me.) documented in this encounter Plan of Treatment Upcoming Encounters Date Type Department Care Team (Late st Contact Info) Description 09/01/2024 10:00 AM EST Office Visit Palliative Medicine [facility] [address] [place] [address] MD [address] [place] [phone] 09/01/2024 1:15 PM EST Pharmacy Pharmacy Hematology Oncology [facility] [address] [place] [address] [facility] Hem[facility]Onc [address] [place] [address] 09/02/2024 9:20 AM EST Telemedicine Neurology [facility] [address] [place] [address] Clif Mckeon MD [address] [place] [address] 09/03/2024 3:50 PM EST Telemedicine [facility] [place] Elana Posadas [address] [place] [address] Shanti Cummings PA-C [address] [place] [address] 09/06/2024 2:30 PM EST Hem/Onc Treatment Hematology/Oncology Treatment, [address], [place] [phone] Rosario, Chair 2 Hem Onc Scenery [address] [place], [place] [address] 09/13/2024 8:45 AM EDT Hem/Onc Treatment Hematology/Oncology Treatment, [place] [address] [facility], [place] [phone] Rosario, Chair 9 Hem Onc Scenery [address] [place], [place] [address] 09/20/2024 7:50 AM EDT Laboratory Laboratory [facility] [place] [address] [place] [address] Rosario, Lab Scenery [address] [facility], [place] [address] 09/20/2024 8:30 AM EDT Office Visit Hematology/Oncology [facility] [place] [address] [place] [phone] Belinda Christianson CRNP [address] [facility] [address] 09/20/2024 9:00 AM EDT Hem/Onc Treatment Hematology/Oncology Treatment, [address], [place] [phone] Rosario, Chair 4 Hem Onc Scenery [address] [place] [address] 09/22/2024 2:45 PM EDT Nurse Only Hematology/Oncology Treatment, [place] [address] [place] [phone] Rosario, Chair 11 Hem Onc Scenery [address] [facility] [address] 11/16/2024 8:45 AM EDT Telemedicine Genetics [facility], [facility] [address] [place] [address] Nat Perez, [place] [address] [place] [address] 11/30/2024 9:00 AM EDT Office Visit [facility] Disorders [facility] [place] [facility] [place] [phone] Silvia Holt CRNP [address] [place] [address] 02/09/2025 9:00 AM EDT Office Visit Family Medicine [address] [phone] Lashawn Mejia MD [address] [place] [address] [place] [address] Scheduled Procedures Name Priority Associated Diagnoses Date/Ti [...] 023, 12/14/2020, 10/21/2007 CKD PHOS USE SMARTSET 31097 12/26/2023 06/2 07/2022, 01/16/2016, 02/16/2015, Additional history exists HbA1c 12/26/2023 12/25/2022, 07/0 07/2021, 12/14/2020, Additional history exists Influenza Vaccine (FLU shot) (#1) 2024 05/14/2010 TSH 03/21/2024 03/21/2023, 08/0 09/2022, 12/25/2022, Additional history exists GFR 02/27/2025 08/30/2024, 08/07, 08/04/2024, Additional history exists CKD HGB USE SMARTSET 02478 08/30/202508/30, 08/30/2024, 08/17/2024, Additional history exists Lipid [...] this encounter Medical Devices Implanted Type Area Telecasting Engineer Device Identifier Shelf Expiration Date Model / Serial / Lot Port Implant [id number] Poly Cath - [id number] Implanted:Qty : 1 on 09/05/2023 by Orville Zendejas MD at OR [facility] Right: Chest CR BARD : PERIPHERAL VASCULAR [id number] 06/05/2024 [id number] / / [id number] documented as of this encounter Visit Diagnoses Diagnosis Endometrial cancer (HCC)- Primary Malignant neoplasm of corpus uteri, except isthmus Other iron deficiency anemia documented in this encounter Advance Directives * Full Code (Latest Code Status on File) Date Activated Date Inactivated Comments 02/19/2022 1:10 PM 02/19/2022 8:22 PM This order r eflects the patients wishes and were consensually agreed upon. Question Answer Comments Discussion of Advance Directives occurred with: Not Discussed Care Teams Network Lead Relationship Specialty Start Date End Date Lashawn Mejia MD [address] [place] [address] [place] [phone] PCP - General Family Medicine 09/22/20 documented as of this encounter
--- OUTSIDE RECORDS SUMMARY | 2024-10-01 03:27 | External Medical Summary | Summary of Care ---
Author Name Unknown Organization [facility] Address [address] [place] [address] Phone [phone] Care Team Providers Care Infection Control Coordinator Name Role Phone Lashawn Mejia MD Primary Care Prov ider Encounter Details Date Type Department Care Team (Late st Contact Info) Description 08/30/2024 Orders Only Hematology/Oncology, [facility] [address] [place], [place] [phone] Flaquita Wilson MD [address] [place] [address] Allergies Active Allergy Reactions Criticality [...] required to determine if the biopsy if junior sales representative. B. 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 Not on file Not on file Not on file documented as of this encounter Plan of Treatment Upcoming Encounters Date Type Department Care Team (Late st Contact Info) Description 09/01/2024 10:00 AM EST Office Visit Palliative Medicine [facility] [address] [place] [address] MD 400 [facility] [place], [place] [phone] 09/01/2024 1:15 PM EST Pharmacy Pharmacy [facility] [address] [place] [address] [facility] Hem[facility]Onc [address] [place] [address] 09/02/2024 9:20 AM EST Telemedicine Neurology Catalino Ortiz [place] [address] [place] [address] Clif Mckeon MD [address] [place] [address] 09/03/2024 3:50 PM EST Telemedicine OPERATIONAL METEOROLOGIST Urology [place] Elana Posadas 400 [facility] [phone] Shanti Cummings PA-C [address] [place] [address] 09/06/2024 2:30 PM EST Hem/Onc Treatment Hematology/Oncology [address] [place] [phone] Rosario, Chair 2 Hem Onc Scenery [address] [place] [address] 09/13/2024 8:45 AM EDT Hem/Onc Treatment Hematology/Oncology Treatment, [address] [place] [phone] Rosario, Chair 9 Hem Onc Scenery [address] [place] [address] 09/16/2024 Hospital Encounter ENDO GECL, Endoscopy [address] [phone] Anabella Alberto, DO [address] [place] [address] 09/20/2024 7:50 AM EDT Laboratory Laboratory [facility] [place] 200 [facility] [place] [phone] Rosario, Lab Scenery 200 [facility] [place] [address] 09/20/2024 8:30 AM EDT Office Visit Hematology/Oncology [facility] [place] 200 [facility] [place] [phone] Belinda Christianson CRNP 400 [facility] [place] [address] 09/20/2024 9:00 AM EDT Hem/Onc Treatment Hematology/Oncology Treatment, [address] [place] [phone] Rosario, Chair 4 Hem Onc Scenery 200 [facility] [place] [address] 09/22/2024 2:45 PM EDT Nurse Only Hematology/Oncology Treatment, [address] [place] [address] Rosario, Chair 11 Hem Onc Scenery [address] [place] [address] 11/16/2024 8:45 AM EDT Telemedicine Genetics HemOnc, [facility] [address] [place] [address] Nat Perez, [place] [address] [place] [phone] 11/30/2024 9:00 AM EDT Office Visit Sleep Disorders Ctr Jett Belcher [place] [address] [place] [phone] Silvia Holt CRNP [address] [place] [address] 02/09/2025 9:00 AM EDT Office Visit Family Medicine [address] [phone] Lashawn Mejia MD [address] [place] [address] [place] [address] Scheduled Procedures Name Priority Associated Diagnoses Date/Ti [...] 023, 12/14/2020, 10/21/2007 CKD PHOS USE SMARTSET 46894 12/26/20232 07/2022, 01/16/2016, 02/16/2015, Additional history exists HbA1c 12/26/2023 12/25/2022, 07/0 07/2021, 12/14/2020, Additional history exists Influenza Vaccine (FLU shot) (#1) 2024 05/14/2010 TSH 03/21/2024 03/21/2023, 08/0 09/2022, 12/25/2022, Additional history exists GFR 02/27/2025 08/30/2024, 08/07, 08/04/2024, Additional history exists CKD HGB USE SMARTSET 50159 08/30/202508/30, 08/30/2024, 08/17/2024, Additional history exists Lipid [...] this encounter Medical Devices Implanted Type Area Receiving Operator Device Identifier Shelf Expiration Date Model / Serial / Lot Port Implant W8f Poly Cath - [id number] Implanted:Qty : 1 on 09/05/2023 by Orville Zendejas MD at OR [facility] Right: Chest CR BARD : PERIPHERAL VASCULAR [id number] 06/05/2024 [id number] / / [id number] documented as of this encounter Advance Directives * Full Code (Latest Code Status on File) Date Activated Date Inactivated Comments 02/19/2022 1:10 PM 02/19/2022 8:22 PM This order r eflects the patients wishes and were consensually agreed upon. Question Answer Comments Discussion of Advance Directives occurred with: Not Discussed Care Teams Infection Control Coordinator Relationship Specialty Start Date End Date Lashawn Mejia MD [address] [place] [address] [place] [phone] PCP - General Family Medicine 09/22/20 documented as of this encounter
--- OUTSIDE RECORDS SUMMARY | 2024-10-01 03:27 | External Medical Summary | Summary of Care ---
Author Name Unknown Organization [facility] Address [address] [place] [address] Phone [phone] Care Team Providers Care It Program Manager Name Role Phone Lashawn Mejia MD Primary Care Prov ider Reason for Visit * Reason Comments Outpatient Testing Encounter Details Date Type Department Care Team (Late st Contact Info) Description 08/30/2024 8:50 AM EST Laboratory Laboratory [facility] [place] [address] [place] [phone] [place], Lab Scenery [address] [place] [address] Endometrial cancer (HCC); Encounter for antineoplastic chemotherapy; Blood in stool, abena; Anemia due to chronic blood loss Allergies [...] determine if the biopsy if sales representative raw fibers. B. Skin, left vulva, biopsy: Mild perifollicular [...] 10:00 AM EST Office Visit Palliative Medicine [facility] 200 [place] [address] MD 400 [facility] [place], [place] [phone] 09/01/2024 1:15 PM EST Pharmacy [facility]acy [facility] [address] [place] [address] [facility], [facility] Hem/Onc [address] [place] [address] 09/02/2024 9:20 AM EST Telemedicine Neurology Catalino Ortiz [place] [address] [place] [address] Clif Mckeon MD [address] [place] [address] 09/03/2024 3:50 PM EST Telemedicine PARTS TECHNICIAN Urology [place] Elana Posadas 400 [facility] [phone] Shanti Cummings PA-C [address] [place] [address] 09/06/2024 2:30 PM EST Hem/Onc Treatment Hematology/Oncology Treatment, [place] 200 [place] [phone] Rosario, Chair 2 Hem Onc Scenery [address] [place], [place] [address] 09/13/2024 8:45 AM EDT Hem/Onc Treatment Hematology/Oncology Treatment, [place] 200 [facility], [place] [phone] Rosario, Chair 9 Hem Onc Scenery [address] [place] [address] 09/20/2024 7:50 AM EDT Laboratory Laboratory [facility] [place] [address] [place], [place] [phone] Rosario, Lab Scenery [address] [place], [place] [address] 09/20/2024 8:30 AM EDT Office Visit Hematology/Oncology [facility] [place] [address] [place], [place] [phone] Belinda Christianson CRNP 400 [facility] [phone] 09/20/2024 9:00 AM EDT Hem/Onc Treatment Hematology/Oncology Treatment, [address], [place] [phone] Rosario, Chair 4 Hem Onc Scenery [address] [place] [address] 09/22/2024 2:45 PM EDT Nurse Only Hematology/Oncology Treatment, [place] 200 [facility], [place] [phone] Rosario, Chair 11 Hem Onc Scenery [address] [place] [address] 11/16/2024 8:45 AM EDT Telemedicine Genetics [facility]Onc, [facility] 1000 [facility] [place] [address] Nat Perez, [place] [address] [place] [address] 11/30/2024 9:00 AM EDT Office Visit Sleep Disorders Ctr [facility] [address] [place] [phone] Silvia Holt CRNP [address] [place] [address] 02/09/2025 9:00 AM EDT Office Visit Family Medicine [address] [phone] Lashawn Mejia MD [address] [place] [address] [place] [phone] Pending Results Name Type Priority Associated Diagnoses Date /Time TSH WITH FREE T4 IF INDICATED Lab STAT Endometrial cancer (HCC) 08/30/2024 8:40 AM EST Scheduled Procedures Name Priority Associated Diagnoses [...] 023, 12/14/2020, 10/21/2007 CKD PHOS USE SMARTSET 66278 12/26/2023 06/2 07/2022, 01/16/2016, 02/16/2015, Additional history exists HbA1c 12/26/2023 12/25/2022, 07/0 07/2021, 12/14/2020, Additional history exists Influenza Vaccine (FLU shot) (#1) 2024 05/14/2010 TSH 03/21/2024 03/21/2023, 08/0 09/2022, 12/25/2022, Additional history exists GFR 02/27/2025 08/30/2024, 08/07, 08/04/2024, Additional history exists CKD HGB USE SMARTSET 72421 08/30/202508/30, 08/30/2024, 08/17/2024, Additional history exists Lipid [...] this encounter Medical Devices Implanted Type Area Telegraphic Typewriter Mechanic Device Identifier Shelf Expiration Date Model / Serial / Lot Port Implant W8f Poly Cath - [id number] Implanted:Qty : 1 on 09/05/2023 by Orville Zendejas MD at OR [facility] Right: Chest CR BARD : PERIPHERAL VASCULAR [id number] 06/05/2024 [id number] / / [id number] documented as of this encounter Procedures Procedure Name Priority Date/Time Associated Diagnosis Comments DIFFERENTIAL, AUTOMATED STAT 08/30/2024 8:40 AM EST Blood in stool, abena COMPREHENSIVE METABOLIC PANEL STAT 08/30/2024 8:40 AM EST Endometrial cancer (HCC) Encounter for antineoplastic chemotherapy CBC STAT 08/30/2024 8:40 AM EST Blood in stool, abena CBC STAT 08/30/2024 8:40 AM EST Blood in stool, abena documented in this encounter Results * (ABNORMAL) DIFFERENTIAL, AUTOMATED (08/30/2024 8:40 AM EST) WBC 8.54 4.00 - 10.80 K/uL 08/30/2024 8:47 AM EST LAB[facility]ORY [place] 56-02 Neutrophils % 82.4(H) 40.0 - 75.0 % 08/30/2024 8:47 AM EST [facility] [place] 56-02 Lymphocytes % 7.1(L) 18.0 - 42.0 % 08/30/2024 8:47 AM EST [facility]02 Monocytes % 8.7 1.0 - 11.0 % 08/30/2024 8:47 AM EST [facility]02 Eosinophils % 1.6 0.0 - 6.0 % 08/30/2024 8:47 AM EST [facility]02 Basophils % 0.2 0.0 - 2.0 % 08/30/2024 8:47 AM EST [facility] 56-02 Absolute Neutrophils 7.03 1.80 - 7.70 K/uL 08/30/2024 8:47 AM EST [facility]02 Absolute Lymphocytes 0.61(L) 1.00 - 4.80 K/ul 08/30/2024 8:47 AM EST [facility]02 Absolute Monocytes 0.74 0.00 - 1.10 K/uL 08/30/2024 8:47 AM EST [facility] 56[facility]02 Absolute Eosinophils 0.14 0.00 - 0.70 K/uL 08/30/2024 8:47 AM EST [facility] 56-02 Absolute Basophils 0.02 0.00 - 0.20 K/uL 08/30/2024 8:47 AM EST [facility] 56-02 Blood Venous blood specimen / Unknown Venipuncture / Unknown 08/30/2024 8:40 AM EST 08/30/2024 8:40 AM EST Lali MCKEON LAB BLOOD ORDERABLES Nemo l Result [facility] 56-[address] [place] [address] * (ABNORMAL) CBC (08/30/2024 8:40 AM EST) [facility] WBC 8.54 4.00 - 10.80 K/uL 08/30/2024 8:47 AM EST [facility] 56- RBC 3.29 3.85 - 5.15 M/uL 08/30/2024 8:47 AM [facility] 56- HGB 8.4(L) 12.0 - 15.3 g/dL 08/30/2024 8:47 AM [facility] 56- HCT 28.5(L) 36.0 - 45.2 % 08/30/2024 8:47 AM [facility] 56- MCV 86.6 81.5 - 97.5 fL 08/30/2024 8:47 AM [facility] 56-02 MCH 25.5 27.0 - 34.0 pg 08/30/2024 8:47 AM [facility] 56-02 MCHC 29.5 32.0 - 36.0 g/dL 08/30/2024 8:47 AM [facility] 56-02 RDW 16.3 11.5 - 15.5 % 08/30/2024 8:47 AM [facility] 56-02 PLT 395 140 - 400 K/uL 08/30/2024 8:47 AM [facility] 56-02 MPV 7.9 6.6 - 11.1 fL 08/30/2024 8:47 AM [facility] 56-02 Blood Venous blood specimen / Unknown Venipuncture / Unknown 08/30/2024 8:40 AM EST 08/30/2024 8:40 AM EST Lali S Juan DESIGN DRAFTSMAN LAB BLOOD ORDERABLES Nemo brito Result [facility] [address] [place] [address] * (ABNORMAL) COMPREHENSIVE METABOLIC PANEL (08/30/2024 8:40 AM EST) BUN 29(H) 6 - 20 mg/dL 08/30/2024 9:13 AM [facility] CREATININE 1.5(H) 0.5 - 1.0 mg/dL 08/30/2024 9:13 AM [facility] 56 EGFR 41(L) >=60 mL/min 08/30/2024 9:13 AM [facility] Comment:eGFR is calculated b ased on the CKD-EPI 2020 equation. SODIUM 141 135 - 146 mmol/L 08/30/2024 9:13 AM [facility] POTASSIUM 4.3 3.5 - 5.1 mmol/L 08/30/2024 9:13 AM [facility] CHLORIDE 106 98 - 107 mmol/L 08/30/2024 9:13 AM [facility] CO2 24 22 - 32 mmol/L 08/30/2024 9:13 AM [facility] ANION GAP 11 7 - 15 mmol/L 08/30/2024 9:13 AM [facility] GLUCOSE 104 70 - 120 mg/dL 08/30/2024 9:13 AM [facility] Albumin 3.9 3.8 - 5.0 g/dL 08/30/2024 9:13 AM [facility] 56 AST 12 10 - 35 U/L 08/30/2024 9:13 AM [facility] 56- Alkaline Phosphatase 82 35 - 130 U/L 08/30/2024 9:13 AM [facility] 56 Bilirubin, Total 0.2 <=1.2 mg/dL 08/30/2024 9:13 AM [facility] 56 CALCIUM 9.2 8.4 - 10.2 mg/dL 08/30/2024 9:13 AM [facility] 56 Protein 7.0 6.0 - 8.3 g/dL 08/30/2024 9:13 AM EST [facility] [place] 56-02 ALT 10 10 - 35 U/L 08/30/2024 9:13 AM EST [facility] 56- Blood Venous blood specimen / Unknown Venipuncture / Unknown 08/30/2024 8:40 AM EST 08/30/2024 8:40 AM EST Lali MCKEON LAB BLOOD ORDERABLES Nemo l Result [facility] 56- [address] [place] [address] documented in this encounter Visit Diagnoses Diagnosis Endometrial cancer (HCC) Malignant neoplasm of corpus uteri, except isthmus Encounter for antineoplastic chemotherapy Blood in stool, abena Blood in stool Anemia due to chronic blood loss Iron deficiency anemia secondary to blood loss (chronic) documented in this encounter Advance Directives * Full Code (Latest Code Status on File) Date Activated Date Inactivated Comments 02/19/2022 1:10 PM 02/19/2022 8:22 PM This order r eflects the patients wishes and were consensually agreed upon. Question Answer Comments Discussion of Advance Directives occurred with: Not Discussed Care Teams It Program Manager Relationship Specialty Start Date End Date Lashawn Mejia MD [address] [place] [address] [place] [address] PCP - General Family Medicine 09/22/20 documented as of this encounter
--- OUTSIDE RECORDS SUMMARY | 2024-10-01 03:28 | External Medical Summary | Summary of Care ---
Author Name Unknown Organization [facility] Address [address] [place] [address] Phone [phone] Care Team Providers Care Geometry Professor Name Role Phone Lashawn Mejia MD Primary Care Prov ider Reason for Visit * Reason Onset Date Comments Precert Future 08/17/2024 Keytruda/Lenvima Encounter Details Date Type Department Care Team (Late st Contact Info) Description 08/17/2024 Telephone Hematology/Oncology [facility] [address] [place] [phone] Flaquita Wilson MD [address] [place] [address] Precert Future (Keytruda/Lenvima ) Allergies Active Allergy [...] 025 Disconti nued(Med ication List Clean Up) clonazePAM 0.5 MG Oral Tablet (KlonoPIN)Indicat ions:RLS [...] 025 Disconti nued(Med ication List Clean Up) rOPINIRole HCl 3 MG Oral TabletIndications :Restless [...] to determine if the biopsy if sales promotion representative. B. 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 * Telephone Encounter - Bouchra Webster RN - 08/30/2024 7:32 AM EST Lenvima auth still in process. * Telephone Encounter - Anabella Rene OSA - 08/27/2024 1:57 PM EST Pt is on the schedule for Friday and is aware * Telephone Encounter - Bouchra Webster RN - 08/27/2024 1:40 PM EST [facility] spoke to patient- she would like to be scheduled. Scheduling: please contact patient to schedule - labs "CBCd, CMP, TSH/T4"- can be day of or day prior - 2 hour appt "C1D1 keytruda" (Steve) Thanks! * Telephone Encounter - Ginette Carias OSA - 08/27/2024 1:28 PM EST Was sent to [facility] yesterday. MAC assistance completed * Telephone Encounter - Ginette Carias OSA - 08/26/2024 12:56 PM EST Assistance was applied for with Tim on 08/24-still in progress. When complete we can send to [facility] * Telephone Encounter - Bouchra Webster RN - 08/26/2024 10:56 AM EST Nurse education complete. Echo/ EKG today. Patient would like to know OOP costs before scheduling keytruda. Copay assistance in process. PRC/PFC: can you please advise? Was patient approved for copay assistance? What is OOP cost estimate? Thanks! * Telephone Encounter - Bouchra Webster RN - 08/25/2024 8:33 AM EST Note from [facility] not available. Called patient- she states that her visit went well, they agreed withplan for keytruda/ lenvima. * Telephone Encounter - Chris Bazzi RN - 08/23/2024 3:59 PM EST Referral entered. * Telephone Encounter - Chris Bazzi RN - 08/17/2024 12:19 PM EST Orders received, plan built and routed. Pt is going for 2nd opinion at [facility] on 08/24 -- need to follow up on office visit note to see if they are in agreeable with the current plan. Awaiting auth. [facility]- fyi regarding orders for Lenvima. -Chemo Consent: 08/17/24 [...] 08/30/2024 11:00 AM EST Office Visit Hematology/Oncology [place] [address] [place] [address] Flaquita Wilson MD [address] [facility] [place] [address] Arrived 08/30/2024 1:30 PM EST Pharmacy Pharmacy Hematology Oncology [facility] [address] [place] [address] [facility] Hem/Onc [address] [place] [address] 09/01/2024 10:00 AM EST Office Visit Palliative Medicine [facility] [address] [place] [phone] MD [address] [place] [address] 09/02/2024 9:20 AM EST Telemedicine Neurology [place], [place] [address] [place] [address] Clif Mckeon MD [address] [place], [place] [phone] 09/06/2024 8:20 AM EST Office Visit Family Medicine [address] [place] [address] MD [address] [place] [address] [place] [phone] 09/15/2024 7:30 AM EDT Laboratory Laboratory [address] [place] [phone] [facility] [address] [place] [address] 09/16/2024 Hospital Encounter ENDO GECL, Endoscopy [address] [place] [address] Anabella Alberto DO [address] [place] [address] 09/22/2024 2:15 PM EDT Office Visit Hematology/Oncology [facility] [address] [place] [address] Flaquita Wilson MD [address] [place] [address] 09/22/2024 2:45 PM EDT Nurse Only Hematology/Oncology Treatment, [place] [address] [facility] [address] [place] [address] Rosario, Chair 11 Hem Onc [facility] 200 [facility] [place] [address] 11/16/2024 8:45 AM EDT Telemedicine Genetics HemOnc, [facility] [address] [place] [address] Nat Perez, [place] [address] [facility] [place] [address] 11/30/2024 9:00 AM EDT Office Visit [facility] C[facility] [place] [phone] Silvia Holt CRNP [address] [place] [address] 02/09/2025 9:00 AM EDT Office Visit Family Medicine [address] [place] [phone] Lashawn Mejia MD [address] [place] [address] [place] [address] Scheduled Procedures Name Priority Associated Diagnoses Date/Ti me SIGMOIDOSCOPY FLEXIBLE DIAGNOSTIC Recall Endometrial cancer (HCC) Health Maintenance Due Date Last Done Comments Hepatitis B Vaccine (1 of 3 - [...] 023, 12/14/2020, 10/21/2007 CKD PHOS USE SMARTSET 78015 12/26/202[address] 07/2022, 01/16/2016, 02/16/2015, Additional history exists HbA1c 12/26/2023 12/25/2022, 07/0 07/2021, 12/14/2020, Additional history exists COVID-19 Vaccine ( season) 2024 Influenza Vaccine (FLU shot) (#1) 2024 05/14/2010 TSH 03/21/2024 03/21/2023, 08/0 09/2022, 12/25/2022, Additional history exists GFR 02/27/2025 08/30/2024, 08/07, 08/04/2024, Additional history exists CKD HGB USE SMARTSET 09864 08/30/202508/30, 08/30/2024, 08/17/2024, Additional history exists Lipid Panel 01/04/2027 01/04/2022, 09/04, 06/01/2016, Additional history exists Colonoscopy 07/13/2034 07/13/2024, 0101/2025, 07/03/2023, Additional history exists Colorectal Cancer Screening [...] this encounter Medical Devices Implanted Type Area Metrology Technician Device Identifier Shelf Expiration Date Model / Serial / Lot Port Implant W8f Poly Cath - [id number] Implanted:Qty : 1 on 09/05/2023 by Orville Zendejas MD at [facility] Right: Chest CR BARD : PERIPHERAL VASCULAR [id number] 06/05/2024 [id number] / / [id number] documented as of this encounter Advance Directives * Full Code (Latest Code Status on File) Date Activated Date Inactivated Comments 02/19/2022 1:10 PM 02/19/2022 8:22 PM This order r eflects the patients wishes and were consensually agreed upon. Question Answer Comments Discussion of Advance Directives occurred with: Not Discussed Care Teams Geometry Professor Relationship Specialty Start Date End Date Lashawn Mejia MD [address] [place] [address] [place] [phone] PCP - General Family Medicine 09/22/20 documented as of this encounter
--- OUTSIDE RECORDS SUMMARY | 2024-10-01 03:28 | External Medical Summary | Summary of Care ---
Author Name Unknown Organization [facility] Address [address] [place] [address] Phone [phone] Care Team Providers Care Drywall Hanger Helper Name Role Phone Lashawn Mejia MD Primary Care Prov ider Reason for Visit * Reason Comments Medication Management Encounter Details Date Type Department Care Team (Late st Contact Info) Description 08/27/2024 1:15 PM [facility] Pharmacy Pharmacy Hematology Oncology [facility] [address] [place] [address] [facility], [facility] Hem/Onc [address] [place] [address] Endometrial cancer (HCC)* Allergies Active Allergy Reactions Criticality Noted Date Comments Gabapentin Neuro complications (Please comment),Tachycardia 02/06/2023 Hallucinations documented as of this encounter (statuses as of 08/27/2024) Medications Ondansetron HCl 8 MG Oral TabletIndications: [...] as of this encounter (statuses as of 08/27/2024) Active Problems Problem Noted Date Diagnosed Date Encounter for antineoplastic chemotherapy 2023 Vulvar irritation 05/12/2023 Overview (05/12/2023): BIOPSY (05/06/2023) -- BENIGN A. Skin, right vulva, biopsy: Benign mature sebaceous glands with minimal inflammation. Negative for dysplasia and malignancy. Comment: The findings are non-specific, although sebaceous hyperplasia was considered. Clinical correlation is required to determine if the biopsy if quality control representative. B. 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 Wilson Provider has consented patient: Yes Patient was introduced to Oral Chemotherapy Clinic: OCC is a free service for patients receiving oral chemo therapy. We are Pharmacists & Pharmacy Technicians, who are a part of hematology & oncology care across the [facility] system offering telephone based appointments from the comfort of your own home. Pharmacists are available Friday-Friday from 8am - 4:30pm. After 4:30pm, non- urgent messages can be left on the pharmacist voicemail, and urgent calls/questions/concerns should be directed to their oncologist office directly (number provided). In case of an emergency, patient is awareto call 911 or travel to nearest emergency department. Communicated to patient: Pharmacists will provide education about your medication, manage oral chemotherapy side effects & review labs. All information will be shared & available to your oncologist. Explained to patient: once they decide on a treatment with their Oncologist, a Pharmacist will review the treatment plan to ensure correct dosing, review labs & medications to prevent any interactions. Medication authorization is submitted to your insurance. Once approved, your Rx will be sent to the Pharmacy determined by your insurance plan. Specialty Pharmacy will contact you to arrange delivery & discuss co-payment and any assistance options, if required. A Pharmacist will contact you to provide medication education, follow up periodically to review lab results & to assess/manage side effects. Patient was reassured the process to obtain medication can take several days-weeks. Patient was informed that hepatitis B screening must be completed prior to initiation of treatment.- Completed Patient has given verbal consent that staff from the Oral Chemotherapy Clinic can speak to Patient and daughter Kimberly Wahl regarding their treatment Patient has given verbal consent that staff from the Oral Chemotherapy Clinic can leave a voicemailwith treatment-related information: Yes This information can be left on Cell Performed medication reconciliation with patient; pharmacist will be in touch if there are any druginteractions with oral chemo. New medications: No medications added to med list Does patient rely on caregiver for medication management: No, Patient voiced understanding on all accounts. She had no questions or concerns today Patient is identified as needing additional education support: Penny Parikh Software Qa System Specialist III / Oral Chemotherapy Clinic [facility] 08/27/2024 2:36 PM Time Spent on Encounter: 11 - 15 minutes documented in this encounter Plan of Treatment Upcoming Encounters Date Type Department Care Team (Late st Contact Info) Description 08/30/2024 8:50 AM EST Laboratory Laboratory [facility] [place] [address] [facility] [place] [phone] [place], Lab [facility] [address] [facility] [place] [address] 08/30/2024 10:00 AM EST Hem/Onc Treatment Hematology/Oncology Treatment, [place] [address] [facility] [place] [phone] Rosario, Chair 2 Hem Onc [facility] [address] [place] [address] 08/30/2024 1:30 PM EST Pharmacy Pharmacy Hematology Oncology [address] [address] [facility], [facility] Hem/Onc [address] [place] [address] 09/01/2024 10:00 AM EST Office Visit Palliative Medicine [place] Rosario [place] [address] [facility] [address] [place] [phone] MD [address] [place] [phone] 09/02/2024 9:20 AM EST Telemedicine Neurology Catalino Ortiz [place] [address] [place] [address] Clif Mckeon MD [address] [place] [address] 09/06/2024 8:20 AM EST Office Visit Family Medicine [address] [phone] MD [address] [place] [address] [place] [phone] 09/15/2024 7:30 AM EDT Laboratory Laboratory [address] [place] [phone] [place], Lab [address] [place] [address] 09/16/2024 Hospital Encounter ENDO GECL, Endoscopy [address] [phone] Anabella Alberto DO [address] [place] [address] 09/22/2024 2:15 PM EDT Office Visit [facility]ematology[facility]Oncology [facility] [address] Flaquita Wilson MD [address] [place] [address] 09/22/2024 2:45 PM EDT Nurse Only Hematology/Oncology Treatment, [place] [address] [place] [phone] Park, Chair 11 Hem Onc [address] [place] [address] 11/16/2024 8:45 AM EDT Telemedicine Genetics HemOn, [facility] [address] [place] [address] Nat Perez, [place] [address] [place] [address] 11/30/2024 9:00 AM EDT Office Visit Sleep Disorders Ctr [facility] [address] [place] [phone] Silvia Holt CRNP [address] [place] [address] 02/09/2025 9:00 AM EDT Office Visit Family Medicine [address] [phone] Lashawn Mejia MD [address] [place] [address] [place] [address] Scheduled Procedures Name Priority Associated Diagnoses Date/Ti [...] 023, 12/14/2020, 10/21/2007 CKD PHOS USE SMARTSET 61748 12/26/202312/06, 01/16/2016, 02/16/2015, Additional history exists HbA1c 12/26/2023 12/25/2022, 07/0 07/2021, 12/14/2020, Additional history exists COVID-19 Vaccine ( season) 2024 Influenza Vaccine (FLU shot) (#1) 2024 05/14/2010 TSH 03/21/2024 03/21/2023, 08/0 09/2022, 12/25/2022, Additional history exists GFR 02/14/2025 08/17/2024, 07/08, 06/07/2024, Additional history exists CKD HGB USE SMARTSET 61557 08/17/202508/17, 08/17/2024, 08/04/2024, Additional history exists Lipid Panel 01/04/2027 01/04/2022, [...] this encounter Medical Devices Implanted Type Area Welding Machine Operator Device Identifier Shelf Expiration Date Model / Serial / Lot Port Implant W8f Poly Cath - [id number] Implanted:Qty : 1 on 09/05/2023 by Orville Zendejas MD at OR [facility] Right: Chest CR BARD : PERIPHERAL VASCULAR [id number] 06/05/2024 [id number] / / [id number] documented as of this encounter Visit Diagnoses [...] Directives occurred with: Not Discussed Care Teams Drywall Hanger Helper Relationship Specialty Start Date End Date Lashawn Mejia MD [address] [place] [address] [place] [phone] PCP - General Family Medicine 09/22/20 documented as of this encounter
--- OUTSIDE RECORDS SUMMARY | 2024-10-01 03:28 | External Medical Summary ---
Author Name Unknown Address Unknown Organization K09:[facility] - [address] [place] [address] Laboratory Report Ordering Provider Test Date Status MEÑO QUAN 08/30/2024 08:40:19 Final Observation Date Value Abnormality Reference (Units ) Status BUN 08/30/2024 08:40:19 29 Above high normal 6-20 (mg/dL) Final Creatinine 08/30/2024 08:40:19 1.5 Above high normal 0.5-1.0 (mg/dL) Final Glomerular filtration rate/1.73 sq M.predicted [Volume Rate/Area] in Serum, Plasma or Blood by Creatinine-based formula (CKD-EPI) 08/30/2024 08:40:19 41 Below low normal >=60 (mL/min) Final eGFR is calculated based on the CKD-EPI 2020 equation. Sodium 08/30/2024 08:40:19 141 135-146 (m mol/L) Final Potassium 08/30/2024 08:40:19 4.3 3.5-5.1 (m mol/L) Final Cl 08/30/2024 08:40:19 106 98-107 (mm ol/L) Final CO2 08/30/2024 08:40:19 24 22-32 (mmo l/L) Final Anion gap 08/30/2024 08:40:19 11 7-15 (mmol /L) Final Glucose 08/30/2024 08:40:19 104 70-120 (mg /dL) Final Albumin 08/30/2024 08:40:19 3.9 3.8-5.0 (g /dL) Final AST (Aspartate aminotransferase) 08/30/2024 08:40:19 12 10-35 (U/L) Final Alk Phos 08/30/2024 08:40:19 82 35-130 (U/ L) Final Bilirubin, Total 08/30/2024 08:40:19 0.2 <=1 .2 (mg/dL) Final Calcium 08/30/2024 08:40:19 9.2 8.4-10.2 ( mg/dL) Final Protein 08/30/2024 08:40:19 7.0 6.0-8.3 (g /dL) Final ALT (Alanine aminotransferase) 08/30/2024 08:40:19 10 10-35 (U/L) Final Performing Location [facility] - [address] [place] [address]
--- OUTSIDE RECORDS SUMMARY | 2024-10-01 03:28 | External Medical Summary ---
Author Name Unknown Address Unknown Organization K01:[facility] - [facility] [address] [facility] [address] [facility] [address] Laboratory Report Ordering Provider Test Date Status BROCK BURNHAM 08/30/2024 08:40:19 Final Observation Date Value Abnormality Reference (Units ) Status TSH 08/30/2024 08:40:19 8.31 Above high normal 0. 27-4.20 (uIU/mL) Final Performing Location [facility] - [address] [facility] [address]
--- OUTSIDE RECORDS SUMMARY | 2024-10-01 03:28 | External Medical Summary | Summary of Care ---
Author Name Unknown Organization [facility] Address [address] [place] [address] Phone [phone] Care Team Providers Care Early Childhood Teacher Name Role Phone Lashawn Mejia MD Primary Care Prov ider Reason for Visit * Reason Comments Outpatient Testing Encounter Details Date Type Department Care Team (Late st Contact Info) Description 08/30/2024 8:50 AM EST Laboratory [facility] [place] [address] [place] [phone] [place], Lab [address] [place] [address] Endometrial cancer (HCC); Encounter for antineoplastic chemotherapy; [...] required to determine if the biopsy if ocean import representative. B. 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 Not on file Not on file documented as of this encounter Plan of Treatment Upcoming Encounters Date Type Department Care Team (Late st Contact Info) Description 08/30/2024 11:00 AM EST Office Visit Hematology/Oncology [facility] [address] [place] [phone] Flaquita Wilson MD [address] [place] [address] Arrived 08/30/2024 1:30 PM EST Pharmacy Pharmacy Hematology Oncology [facility] [place] [address] [place] [address] [facility] Hem/Onc [address] [place] [address] 09/01/2024 10:00 AM EST Office Visit Palliative Medicine [facility] [address] [facility] [place] [phone] [address] MD [address] [facility] [place] [address] 09/02/2024 9:20 AM EST [facility]medicine [facility] [address] [place] [phone] Clif Mckeon MD [address] [place] [address] 09/06/2024 8:20 AM EST Office Visit Family Medicine [address] [place] [phone] MD [address] [place] [address] [place] [address] 09/15/2024 7:30 AM EDT Laboratory Laboratory [address] [place] [address] [facility] [address] [place] [address] 09/16/2024 Hospital Encounter ENDO GE[facility], Endoscopy [address] [place] [address] Anabella Alberto, [address] [place] [address] 09/22/2024 2:15 PM EDT Office Visit Hematology/Oncology [facility] [place] [address] [place] [address] Flaquita Wilson MD [address] [place] [address] 09/22/2024 2:45 PM EDT Nurse Only Hematology/Oncology Treatment, [place] [address] [facility] [place] [address] Rosario, Chair 11 Hem Onc [facility] [address] [facility] [place] [address] 11/16/2024 8:45 AM EDT Telemedicine Genetics HemOnc, [facility] [address] [facility] [place] [address] Nat Perez, [place] [address] [facility] [place] [phone] 11/30/2024 9:00 AM EDT Office Visit Sleep Disorders Ctr [facility] [address] [place] [phone] Silvia Holt CRNP [address] [place] [address] 02/09/2025 9:00 AM EDT Office Visit Family Medicine [address] [place] [phone] Lashawn Mejia MD [address] [place] [address] [place] [address] Scheduled Procedures Name Priority Associated Diagnoses Date/Ti [...] 023, 12/14/2020, 10/21/2007 CKD PHOS USE SMARTSET 48312 12/26/2023/07/2022, 01/16/2016, 02/16/2015, Additional history exists HbA1c 12/26/2023 12/25/2022, 07/0 07/2021, 12/14/2020, Additional history exists COVID-19 Vaccine ( - season) 2024 Influenza Vaccine (FLU shot) (#1) 2024 05/14/2010 TSH 03/21/2024 03/21/2023, 080 09/2022, 12/25/2022, Additional history exists GFR 02/27/2025 08/30/2024, 08/07, 08/04/2024, Additional history exists CKD HGB USE SMARTSET 33944 08/30/202508/30, 08/30/2024, 08/17/2024, Additional history exists Lipid [...] this encounter Medical Devices Implanted Type Area Water Taxi Operator Device Identifier Shelf Expiration Date Model / Serial / Lot Port Implant W8f Poly Cath - [id number] Implanted:Qty : 1 on 09/05/2023 by Orville Zendejas MD at OR [facility] Right: Chest CR BARD : PERIPHERAL VASCULAR [id number] 06/05/2024 [id number] / / [id number] documented as of this encounter Procedures Procedure [...] 4.00 - 10.80 K/uL 08/30/2024 8:47 AM [facility]02 Neutrophils % 82.4(H) 40.0 - 75.0 % 08/30/2024 8:47 AM [facility]-02 Lymphocytes % 7.1(L) 18.0 - 42.0 % 08/30/2024 8:47 AM [facility]-02 Monocytes % 8.7 1.0 - 11.0 % 08/30/2024 8:47 AM [facility]-02 Eosinophils % 1.6 0.0 - 6.0 % 08/30/2024 8:47 AM [facility]-02 Basophils % 0.2 0.0 - 2.0 % 08/30/2024 8:47 AM [facility] 56-02 Absolute Neutrophils 7.03 1.80 - 7.70 K/uL 08/30/2024 8:47 AM [facility] 56-02 Absolute Lymphocytes 0.61(L) 1.00 - 4.80 K/ul 08/30/2024 8:47 AM [facility] 56-02 Absolute Monocytes 0.74 0.00 - 1.10 K/uL 08/30/2024 8:47 AM [facility]-02 Absolute Eosinophils 0.14 0.00 - 0.70 K/uL 08/30/2024 8:47 AM [facility]-02 Absolute Basophils 0.02 0.00 - 0.20 K/uL 08/30/2024 8:47 AM [facility]-02 Blood Venous blood specimen / Unknown Venipuncture / Unknown 08/30/2024 8:40 AM EST 08/30/2024 8:40 AM EST us Lali MCKEON LAB BLOOD ORDERABLES Nemo brito Result [facility] [place] [address] * (ABNORMAL) CBC (08/30/2024 8:40 AM EST) Pathologist [facility] WBC 8.54 4.00 - 10.80 K/uL 08/30/2024 8:47 AM [facility] 56- RBC 3.29 3.85 - 5.15 M/uL 08/30/2024 8:47 AM [facility] 56- HGB 8.4(L) 12.0 - 15.3 g/dL 08/30/2024 8:47 AM [facility] 56- HCT 28.5(L) 36.0 - 45.2 % 08/30/2024 8:47 AM [facility] 56- MCV 86.6 81.5 - 97.5 fL 08/30/2024 8:47 AM [facility] 56- MCH 25.5 27.0 - 34.0 pg 08/30/2024 8:47 AM [facility] 56- MCHC 29.5 32.0 - 36.0 g/dL 08/30/2024 8:47 AM [facility] 56- RDW 16.3 11.5 - 15.5 % 08/30/2024 8:47 AM [facility]-02 PLT 395 140 - 400 K/uL 08/30/2024 8:47 AM [facility]-02 MPV 7.9 6.6 - 11.1 fL 08/30/2024 8:47 AM [facility]-02 Blood Venous blood specimen / Unknown Venipuncture / Unknown 08/30/2024 8:40 AM EST 08/30/2024 8:40 AM EST us Lali MCKEON LAB BLOOD ORDERABLES Nemo l Result [facility] [place] [address] * (ABNORMAL) COMPREHENSIVE METABOLIC PANEL (08/30/2024 8:40 AM EST) [facility] BUN 29(H) 6 - 20 mg/dL 08/30/2024 9:13 AM [facility] 56- CREATININE 1.5(H) 0.5 - 1.0 mg/dL 08/30/2024 9:13 AM [facility] 56- EGFR 41(L) >=60 mL/min 08/30/2024 9:13 AM [facility] 56- Comment:eGFR is calculated b ased on the CKD-EPI 2020 equation. SODIUM 141 135 - 146 mmol/L 08/30/2024 9:13 AM [facility] 56- POTASSIUM 4.3 3.5 - 5.1 mmol/L 08/30/2024 9:13 AM [facility] 56- CHLORIDE 106 98 - 107 mmol/L 08/30/2024 9:13 AM [facility] 56- CO2 24 22 - 32 mmol/L 08/30/2024 9:13 AM [facility] 56- ANION GAP 11 7 - 15 mmol/L 08/30/2024 9:13 AM [facility] 56- GLUCOSE 104 70 - 120 mg/dL 08/30/2024 9:13 AM [facility] 56- Albumin 3.9 3.8 - 5.0 g/dL 08/30/2024 9:13 AM [facility] 56- AST 12 10 - 35 U/L 08/30/2024 9:13 AM [facility] 56- Alkaline Phosphatase 82 35 - 130 U/L 08/30/2024 9:13 AM [facility] 56- Bilirubin, Total 0.2 <=1.2 mg/dL 08/30/2024 9:13 AM [facility] 56- CALCIUM 9.2 8.4 - 10.2 mg/dL 08/30/2024 9:13 AM [facility] 56- Protein 7.0 6.0 - 8.3 g/dL 08/30/2024 9:13 AM [facility] 56- ALT 10 10 - 35 U/L 08/30/2024 9:13 AM [facility] 56- Blood Venous blood specimen / Unknown Venipuncture / Unknown 08/30/2024 8:40 AM EST 08/30/2024 8:40 AM EST us Lali Martinez MIKE LAB BLOOD ORDERABLES Nemo l Result [facility] [place] [facility] [place] [address] documented in this encounter Visit Diagnoses Diagnosis [...] Directives occurred with: Not Discussed Care Teams Early Childhood Teacher Relationship Specialty Start Date End Date Lashawn Mejia MD [address] [place] [address] [place] [phone] PCP - General Family Medicine 09/22/20 documented as of this encounter
--- OUTSIDE RECORDS SUMMARY | 2024-10-01 03:28 | External Medical Summary | Summary of Care ---
Author Name Unknown Organization [facility] Address [address] [place] [address] Phone [phone] Care Team Providers Care Tableau Analyst Name Role Phone Lashawn Mejia MD Primary Care Prov ider Reason for Visit * Reason Onset Date Comments Precert Future 08/17/2024 Keytruda/Lenvima Encounter Details Date Type Department Care Team (Late st Contact Info) Description 08/17/2024 Telephone Hematology/Oncology [facility] [address] [place] [phone] Flaquita Wilson MD [address] [place] [address] Precert Future (Keytruda/Lenvima ) Allergies Active Allergy Reactions Criticality Noted Date Comments Gabapentin Neuro complications (Please comment),Tachycardia 02/06/2023 Hallucinations documented as of this encounter (statuses as of 08/27/2024) Medications Ondansetron HCl 8 MG Oral TabletIndications [...] bedtime. 12 Suppository 3 07/21/19 25 Active Lisinopril 5 MG Oral Tablet [...] required to determine if the biopsy if accounts receivable representative. B. Skin, left vulva, biopsy: Mild [...] encounter Miscellaneous Notes * Telephone Encounter - Anabella Rene OSA - 08/27/2024 1:57 PM EST Pt is on the schedule for Friday and is aware * Telephone Encounter - Bouchra [place] RN - 08/27/2024 1:40 PM EST [facility] spoke to patient- she would like to be scheduled. Scheduling: please contact patient to schedule - labs "CBCd, CMP, TSH/T4"- can be day of or day prior - 2 hour appt "C1D1 keytruda" (Steve) Thanks! * Telephone Encounter - Ginette Carias OSA - 08/27/2024 1:28 PM EST Was sent to [facility] yesterday. MAC assistance completed * Telephone Encounter - Ginette Carias OSA - 08/26/2024 12:56 PM EST Assistance was applied for with Tim on 08/24-still in progress. When complete we can send to [facility] * Telephone Encounter - Bouchra [place] RN - 08/26/2024 10:56 AM EST Nurse education complete. Echo/ EKG today. Patient would like to know OOP costs before scheduling keytruda. Copay assistance in process. [facility]: can you please advise? Was patient approved for copay assistance? What is OOP cost estimate? Thanks! * Telephone Encounter - Bouchra [place] RN - 08/25/2024 8:33 AM EST Note from [facility] not available. Called patient- she states that her visit went well, they agreed withplan for keytruda/ lenvima. * Telephone Encounter - Chris Bazzi RN - 08/23/2024 3:59 PM EST Referral entered. * Telephone Encounter - Chris Bazzi RN - 08/17/2024 12:19 PM EST Orders received, plan built and routed. Pt is going for 2nd opinion at [facility] on 08/24 -- need to follow up on office visit note to see if they are in agreeable with the current plan. Awaiting auth. [facility]- fyi regarding orders for Lenvima. -Chemo [...] Description 08/30/2024 8:50 AM EST Laboratory Laboratory [facility] [place] [address] [facility] [place] [phone] Rosario, Lab [address] [facility] [place] [address] 08/30/2024 10:00 AM EST Hem/Onc Treatment Hematology/Oncology Treatment, [place] [address] [facility] [place] [phone] Rosario, Chair 2 Hem Onc [facility] 200 [place] [address] 08/30/2024 1:30 PM EST Pharmacy Pharmacy Hematology Oncology [address] [place] [address] [facility] [place] Hem/Onc [address] [place] [address] 09/01/2024 10:00 AM EST Office Visit Palliative Medicine [place] [address] [facility] [address] [place] [address] MD [address] [place] [address] [place], [place] [address] 09/02/2024 9:20 AM EST Telemedicine Neurology [place], [place] [address] [place] [address] Clif Mckeon MD [address] [place] [address] 09/06/2024 8:20 AM EST Office Visit Family Medicine [address] [phone] MD [address] [place] [address] [place] [phone] 09/15/2024 7:30 AM EDT Laboratory Laboratory [address] [place] [address] [place] [address] 09/16/2024 Hospital Encounter ENDO GECL, Endoscopy [address] [place] [address] Anabella Alberto DO [address] [place] [address] 09/22/2024 2:15 PM EDT Office Visit Hematology/Oncology [facility] 200 [facility] [place] [phone] Flaquita Wilson MD [address] [place] [address] 09/22/2024 2:45 PM EDT Nurse Only Hematology/Oncology Treatment, [place] [address] [place] [phone] Park, Chair 11 Hem Onc Scene [address] [place] [address] 11/16/2024 8:45 AM EDT Telemedicine Genetics HemOnc, [facility] [address] [place] [address] Nat Perez, [place] [address] [place] [address] 11/30/2024 9:00 AM EDT Office Visit Sleep Disorders Ctr [facility] [place] [address] [place] [phone] Silvia Holt CRNP [address] [place] [address] 02/09/2025 9:00 AM EDT Office Visit Family Medicine [address] [phone] Lashawn Mejia MD [address] [place] [address] [place] [address] Scheduled Procedures Name Priority Associated Diagnoses Date/Ti [...] 023, 12/14/2020, 10/21/2007 CKD PHOS USE SMARTSET 56492 12/26/202312/06, 01/16/2016, 02/16/2015, Additional history exists HbA1c 12/26/2023 12/25/2022, 07/0 07/2021, 12/14/2020, Additional history exists COVID-19 Vaccine ( season) 2024 Influenza Vaccine (FLU shot) (#1) 2024 05/14/2010 TSH 03/21/2024 03/21/2023, 08/0 09/2022, 12/25/2022, Additional history exists GFR 02/14/2025 08/17/2024, 2 03/2025, 06/07/2024, Additional history exists CKD HGB USE SMARTSET 00343 08/17/202508/17, 08/17/2024, 08/04/2024, Additional history exists Lipid [...] this encounter Medical Devices Implanted Type Area Invoice Clerk Device Identifier Shelf Expiration Date Model / Serial / Lot Port Implant W8f Poly Cath - [id number] Implanted:Qty : 1 on 09/05/2023 by Orville Zendejas MD at [facility] Right: Chest CR BARD : PERIPHERAL VASCULAR [id number] 06/05/2024 [id number] / / [id number] documented as of this encounter Advance Directives * Full Code (Latest Code Status on File) Date Activated Date Inactivated Comments 02/19/2022 1:10 PM 02/19/2022 8:22 PM This order r eflects the patients wishes and were consensually agreed upon. Question Answer Comments Discussion of Advance Directives occurred with: Not Discussed Care Teams Tableau Analyst Relationship Specialty Start Date End Date Lashawn Mejia MD [address] [place] [address] [place] [address] PCP - General Family Medicine 09/22/20 documented as of this encounter
--- OUTSIDE RECORDS SUMMARY | 2024-10-01 03:28 | External Medical Summary ---
Author Name Unknown Address Unknown Organization K01:[facility] - [address] [facility] [address] Laboratory Report Ordering Provider Test Date Status [place] 08/30/2024 08:40:19 Final Observation Date Value Abnormality Reference (Units ) Status T4, Free 08/30/2024 08:40:19 1.5 0.9-1.7 (n g/dL) Final Performing Location [facility] - [address] [facility] [address]
--- OUTSIDE RECORDS SUMMARY | 2024-10-01 03:28 | External Medical Summary | Summary of Care ---
Author Name Unknown Organization [facility] Address [address] [place] [address] Phone [phone] Care Team Providers Care Hide Puller Name Role Phone Lashawn Mejia MD Primary Care Prov ider Reason for Visit * Reason Onset Date Comments Information 08/26/2024 Encounter Details Date Type Department Care Team (Late st Contact Info) Description 08/26/2024 Telephone Hematology/Oncology Treatment, [place] [address] [place] [phone] Flaquita Wilson MD [address] [place] [address] Information Allergies Active Allergy Reactions Criticality Noted Date Comments Gabapentin Neuro complications (Please comment),Tachycardia 02/06/2023 Hallucinations documented as of this encounter (statuses as of 08/28/2024) Medications Ondansetron HCl 8 MG Oral TabletIndications [...] bedtime. 12 Suppository 3 07/21/19 25 Active rOPINIRole HCl 3 MG Oral TabletIndications :Restless legs syndrome Take 1 Tablet by mouth in the morning and 1 Tablet at noon and 1 Tablet in the evening and 1 Tablet before bedtime. 120 Tablet 3 08/20/19 25 Active oxyCODONE-Acetami nophen 5-325 MG Oral Tablet (Percocet)Indicat ions:Endometrial cancer (HCC) Take 1 Tablet by mouth every 4 hours as needed for Pain, Moderate. 60 Tablet 08/26/19 25 Active Lisinopril 5 MG Oral Tablet (Prinivil)Indicat ions:HTN, goal below 140/90 Take by mouth 1 Tablet in the morning. 90 Tablet 1 12/19/19 23 025 Disconti nued(Ref ill) clonazePAM 0.5 MG Oral Tablet (KlonoPIN)Indicat ions:RLS (restless legs syndrome) Take 1-2 tablets per mouth at bedtime. 60 Tablet 2 04/29/20 24 025 Disconti nued(Ref ill) documented as of this encounter (statuses as of 08/28/2024) Active Problems Problem Noted Date Diagnosed Date Encounter for antineoplastic chemotherapy 2023 Vulvar irritation 05/12/2023 Overview (05/12/2023): BIOPSY (05/06/2023) -- BENIGN A. Skin, right vulva, biopsy: Benign mature sebaceous glands with minimal inflammation. Negative for dysplasia and malignancy. Comment: The findings are non-specific, although sebaceous hyperplasia was considered. Clinical correlation is required to determine if the biopsy if cordage sales representative. B. 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 Faxed request to them. * Telephone Encounter - Bouchra [place] RN - 08/26/2024 10:[address] Wilson's routing comment: "Where is consult note migdalia Julien? Not able find. Please can you print and give me on Friday. No need for sigmoidoscopy and stent at this point. " Attempted to call patient. Left message that I would send MyG, asked that she either check MyG or return call. Scheduling: please contact [facility] to have office note faxed/ scanned into chart. Please route to Dr Wilson once scanned in Gastro: per Dr Wilson, patient does not need sigmoidoscopy in September Thanks! * Telephone Encounter - Bouchra [place] RN - 08/26/2024 9:41 AM EST Patient here for education 1) Sigmoidoscopy scheduled 09/16/24. Since we are starting treatment, is this still needed? 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 " Had discussed with patient that she may need a stent in the future for this. Does she need to see a specialist for this at this time? Dr Wilson: please advise on above. Thanks! documented in this encounter Plan of Treatment Upcoming Encounters Date Type Department Care Team (Late st Contact Info) Description 08/30/2024 8:50 AM EST Laboratory Laboratory [facility] [place] 200 [facility] [place] [phone] Rosario, Lab [address] [facility] [place] [address] 08/30/2024 10:00 AM EST Hem/Onc Treatment Hematology/Oncology Treatment, [place] [address] [place] [phone] Rosraio, Chair 2 Hem Onc [facility] 200 [facility] [address] 08/30/2024 1:30 PM EST Pharmacy Pharmacy Hematology Oncology [place] [address] [place] [address] [facility] [place] [facility] Hem/Onc [facility] [place] [address] 09/01/2024 10:00 AM EST Office Visit Palliative Medicine [facility] [phone] MD 400 [facility] [place] [address] 09/02/2024 9:20 AM EST Telemedicine Neurology [place] [address] [place] [phone] Clif Mckeon MD 100 [facility] [address] 09/06/2024 8:20 AM EST Office Visit Family Medicine [address] [phone] MD [address] [place] [address] [place] [phone] 09/15/2024 7:30 AM EDT Laboratory Laboratory [address] [place] [phone] [facility] Lab [address] [place] [address] 09/16/2024 Hospital Encounter ENDO GECL, Endoscopy [address] [address] Anabella Alberto DO [address] [place] [address] 09/22/2024 2:15 PM EDT Office Visit Hematology/Oncology [address] [place] [address] Flaquita Wilson MD 200 [facility] [place] [address] 09/22/2024 2:45 PM EDT Nurse Only Hematology/Oncology Treatment, [address] [place] [address] Rosario, Chair 11 Hem Onc [place] [address] [facility] [address] 11/16/2024 8:45 AM EDT Telemedicine Genetics HemOnc, [facility] [address] [place] [address] [place] Perez, [place] [address] [place] [address] 11/30/2024 9:00 AM EDT Office Visit Sleep Disorders Ctr Jett Belcher [place] [address] [place] [phone] Silvia Holt CRNP [address] [place] [address] 02/09/2025 9:00 AM EDT Office Visit Family Medicine [address] [phone] Lashawn Mejia MD [address] [place] [address] [place] [address] Scheduled Procedures Name Priority Associated Diagnoses Date/Ti [...] 023, 12/14/2020, 10/21/2007 CKD PHOS USE SMARTSET 28204 12/26/202312/06, 01/16/2016, 02/16/2015, Additional history exists HbA1c 12/26/2023 12/25/2022, 07/2021, 12/14/2020, Additional history exists COVID-19 Vaccine ( season) 2024 Influenza Vaccine (FLU shot) (#1) 2024 05/14/2010 TSH 03/21/2024 03/21/2023, 09/2022, 12/25/2022, Additional history exists GFR 02/14/2025 08/17/2024, 07/08, 06/07/2024, Additional history exists CKD HGB USE SMARTSET 35427 08/17/202508/17, 08/17/2024, 08/04/2024, Additional history exists Lipid [...] this encounter Medical Devices Implanted Type Area Feed Weigher Device Identifier Shelf Expiration Date Model / Serial / Lot Port Implant W8f Poly Cath - [id number] Implanted:Qty : 1 on 09/05/2023 by Orville Zendejas MD at [facility] Right: Chest CR BARD : PERIPHERAL VASCULAR [id number] 06/05/2024 [id number] / / [id number] documented as of this encounter Advance Directives * Full Code (Latest Code Status on File) Date Activated Date Inactivated Comments 02/19/2022 1:10 PM 02/19/2022 8:22 PM This order r eflects the patients wishes and were consensually agreed upon. Question Answer Comments Discussion of Advance Directives occurred with: Not Discussed Care Teams Hide Puller Relationship Specialty Start Date End Date Lashawn Mejia MD [address] [place] [address] [place] [address] PCP - General Family Medicine 09/22/20 documented as of this encounter
--- OUTSIDE RECORDS SUMMARY | 2024-10-01 03:28 | External Medical Summary ---
Author Name Unknown Address Unknown Organization K09:[facility] [place] [address] Laboratory Report Ordering Provider Test Date Status MEÑO QUAN 08/30/2024 08:40:19 Final Observation Date Value Abnormality Reference (Units ) Status SYNC LEUKOCYTES IN BLOOD BY AUTOMATED COUNT 08/30/2024 08:40:19 8.54 4.00-10.80 (K/uL) Final Segs 08/30/2024 08:40:19 82.4 Above high normal 40.0-75.0 (%) Final Lymphs % 08/30/2024 08:40:19 7.1 Below low normal 18.0-42.0 (%) Final Monos 08/30/2024 08:40:19 8.7 1.0-11.0 (%) Final Eosinophils 08/30/2024 08:40:19 1.6 0.0-6.0 (%) Final Basos 08/30/2024 08:40:19 0.2 0.0-2.0 (%) Final Absolute Segs 08/30/2024 08:40:19 7.03 1.80-7.70 (K/uL) Final Lymphs, absolute 08/30/2024 08:40:19 0.61 Below low normal 1.00-4.80 (K/ul) Final Monos, Abs 08/30/2024 08:40:19 0.74 0.00-1.10 (K/uL) Final Eos, Abs 08/30/2024 08:40:19 0.14 0.00-0.70 (K/uL) Final Basos, Abs 08/30/2024 08:40:19 0.02 0.00-0.20 (K/uL) Final Performing Location [facility] [place] [address]
--- OUTSIDE RECORDS SUMMARY | 2024-10-01 03:28 | External Medical Summary ---
Author Name Unknown Address Unknown Organization K09:[facility] [place] [address] Laboratory Report Ordering Provider Test Date Status MEÑO QUAN 08/30/2024 08:40:19 Final Observation Date Value Abnormality Reference (Units ) Status WBC, Total 08/30/2024 08:40:19 8.54 4.00-10.8 0 (K/uL) Final RBC 08/30/2024 08:40:19 3.29 3.85-5.15 (M/uL) Final Hemoglobin 08/30/2024 08:40:19 8.4 Below low normal 12 .0-15.3 (g/dL) Final HCT 08/30/2024 08:40:19 28.5 Below low normal 36. 0-45.2 (%) Final MCV 08/30/2024 08:40:19 86.6 81.5-97.5 (fL) Final MCH 08/30/2024 08:40:19 25.5 27.0-34.0 (pg) Final MCHC 08/30/2024 08:40:19 29.5 32.0-36.0 (g/dL) Final RDW 08/30/2024 08:40:19 16.3 11.5-15.5 (%) Final Platelets 08/30/2024 08:40:19 395 140-400 (K /uL) Final MPV 08/30/2024 08:40:19 7.9 6.6-11.1 ( fL) Final Performing Location [facility] [place] [address]
--- OUTSIDE RECORDS SUMMARY | 2024-10-01 03:28 | External Medical Summary | Summary of Care ---
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 Scheduling: please contact patient to schedule - labs "CBCd, CMP, TSH/T4"- can be day of or day prior - 2 hour appt "C1D1 keytruda" (Steve) Thanks! * Telephone Encounter - Ginette Carias OSA - 08/27/2024 1:28 PM EST Was sent to [facility] yesterday. MAC assistance completed * Telephone Encounter - Ginette Carias OSA - 08/26/2024 12:56 PM EST Assistance was applied for with Tim on 08/24-still in progress. When complete we can send to [facility] * Telephone Encounter - Bouchra [place] RN - 08/26/2024 10:56 AM EST Nurse education complete. Echo/ EKG today. Patient would like to know OOP costs before scheduling keytruda. Copay assistance in process. [facility]: can you please advise? Was patient approved for copay assistance? What is OOP cost estimate? Thanks! * Telephone Encounter - Bouchra [place] RN - 08/25/2024 8:33 AM EST Note from [facility] not available. Called patient- she states that her visit went well, they agreed withplan for keytruda/ lenvima. * Telephone Encounter - Chris Bazzi RN - 08/23/2024 3:59 PM EST Referral entered. * Telephone Encounter - Chris Bazzi RN - 08/17/2024 12:19 PM EST Orders received, plan built and routed. Pt is going for 2nd opinion at [facility] on 08/24 -- need to follow up on office visit note to see if they are in agreeable with the current plan. Awaiting auth. [facility]- fyi regarding orders for Lenvima. -Chemo Consent: [...] Description 08/30/2024 8:50 AM EST Laboratory Laboratory [facility] 200 [facility] [place] [phone] Rosario, Lab [address] [facility] [place] [address] 08/30/2024 10:00 AM EST Hem/Onc Treatment Hematology/Oncology Treatment, [place] [address] [facility] [place] [phone] Rosario, Chair [address] [facility] 200 [place] [address] 08/30/2024 1:30 PM EST Pharmacy Pharmacy Hematology Oncology [address] [place] [address] [facility] [place] Hem/Onc [address] [place] [address] 09/01/2024 10:00 AM EST Office Visit Palliative Medicine [place] [address] [facility] [address] [place] [address] MD [address] [place] [address] [place], [place] [phone] 09/02/2024 9:20 AM EST Telemedicine Neurology [place], [place] [address] [place] [address] Clif Mckeon MD [address] [place] [address] 09/06/2024 8:20 AM EST Office Visit Family Medicine [address] [phone] MD [address] [place] [address] [place] [phone] 09/15/2024 7:30 AM EDT Laboratory Laboratory [address] [place] [phone] [place] [address] 09/16/2024 Hospital Encounter ENDO GECL, Endoscopy [address] [place] [address] Anabella Alberto DO [address] [place] [address] 09/22/2024 2:15 PM EDT Office Visit Hematology/Oncology [facility] 200 [facility] [place] [phone] Flaquita Wilson MD [address] [place] [address] 09/22/2024 2:45 PM EDT Nurse Only Hematology/Oncology Treatment, [place] [address] [place] [phone] Park, Chair 11 Hem Onc Scene [address] [place] [address] 11/16/2024 8:45 AM EDT Telemedicine Genetics HemOnc, [facility] [address] [place] [address] [place] Perez, [place] [address] [place] [address] 11/30/2024 9:00 AM EDT Office Visit Sleep Disorders Ctr [facility] [place] [address] [place] [phone] Silvia Holt CRNP [address] [place] [address] 02/09/2025 9:00 AM EDT Office Visit Family Medicine [address] [phone] Lashawn Mejia MD [address] [place] [address] [place] [address] Scheduled Procedures Name Priority Associated Diagnoses Date/Ti [...] 023, 12/14/2020, 10/21/2007 CKD PHOS USE SMARTSET 91577 12/26/202312/06, 01/16/2016, 02/16/2015, Additional history exists HbA1c 12/26/2023 12/25/2022, 07/0 07/2021, 12/14/2020, Additional history exists COVID-19 Vaccine ( season) 2024 Influenza Vaccine (FLU shot) (#1) 2024 05/14/2010 TSH 03/21/2024 03/21/2023, 08/0 09/2022, 12/25/2022, Additional history exists GFR 02/14/2025 08/17/2024, 2 03/2025, 06/07/2024, Additional history exists CKD HGB USE SMARTSET 73104 08/17/202508/17, 08/17/2024, 08/04/2024, Additional history exists Lipid [...] this encounter Medical Devices Implanted Type Area Customer Service Receptionist Device Identifier Shelf Expiration Date Model / Serial / Lot Port Implant W8f Poly Cath - [id number] Implanted:Qty : 1 on 09/05/2023 by Orville Zendejas MD at [facility] Right: Chest CR BARD : PERIPHERAL VASCULAR [id number] 06/05/2024 [id number] / / [id number] documented as of this encounter Advance Directives * Full Code (Latest Code Status on File) Date Activated Date Inactivated Comments 02/19/2022 1:10 PM 02/19/2022 8:22 PM This order r eflects the patients wishes and were consensually agreed upon. Question Answer Comments Discussion of Advance Directives occurred with: Not Discussed Care Teams Hospice Plan Administrator Relationship Specialty Start Date End Date Lashawn Mejia MD [address] [place] [address] [place] [address] PCP - General Family Medicine 09/22/20 documented as of this encounter
--- OUTSIDE RECORDS SUMMARY | 2024-10-01 03:28 | External Medical Summary | Summary of Care ---
Author Name Unknown Organization [facility] Address [address] [place] [address] Phone [phone] Care Team Providers Care Clinical Trial Manager Name Role Phone Lashawn Mejia MD Primary Care Prov ider Reason for Visit * Reason Onset Date Comments Precert Future 08/17/2024 Keytruda/Lenvima Encounter Details Date Type Department Care Team (Late st Contact Info) Description 08/17/2024 Telephone Hematology/Oncology [facility] [address] [place] [phone] Flaquita Wilson MD [address] [place] [address] Precert Future (Keytruda/Lenvima ) Allergies Active Allergy [...] required to determine if the biopsy if dental sales representative. B. 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 * Telephone Encounter - Anabella Rene OSA - 08/27/2024 1:57 PM EST Pt is on the schedule for Friday and is aware * Telephone Encounter - Bouchra Webster RN - 08/27/2024 1:40 PM EST [facility] spoke to patient- she would like to be scheduled. Scheduling: please contact patient to schedule - labs "CBCd, CMP, TSH/T4"- can be day of or day prior - 2 hour appt "C1D1 keytruda" (Steve) Thanks! * Telephone Encounter - Ginette Carias OSA - 08/27/2024 1:28 PM EST Was sent to [facility] yesterday. MAC assistance completed * Telephone Encounter - Ginette Carias OSA - 08/26/2024 12:56 PM EST Assistance was applied for with Tim on 08/24-still in progress. When complete we can send to [facility] * Telephone Encounter - Bouchra Webster RN - 08/26/2024 10:56 AM EST Nurse education complete. Echo/ EKG today. Patient would like to know OOP costs before scheduling keytruda. Copay assistance in process. [facility]: can you please advise? Was patient approved for copay assistance? What is OOP cost estimate? Thanks! * Telephone Encounter - Bouchra Webster RN - 08/25/2024 8:33 AM EST Note from [facility] not available. Called patient- she states that her visit went well, they agreed withplan for keytruda/ lenvima. * Telephone Encounter - Chris Bazzi RN - 08/23/2024 3:59 PM EST Referral entered. * Telephone Encounter - Chris Bazzi RN - 08/17/2024 12:19 PM EST Orders received, plan built and routed. Pt is going for 2nd opinion at [facility] on 08/24 -- need to follow up on office visit note to see if they are in agreeable with the current plan. Awaiting auth. [facility]- i regarding orders for Lenvima. -Chemo Consent: 08/17/24 -Chemo Education: Not Scheduled- pt is having second opinion on 08/24. -Port Placement: Already placed -Standing Lab orders placed: CBCD,CMP,TSH/T4 -Medications Pended: Pt previously prescribed Zofran -Hep B Labs: Completed 08/27/23 documented in this encounter Plan of Treatment Upcoming Encounters Date Type Department Care Team (Late st Contact Info) Description 08/30/2024 8:50 AM EST Laboratory Laboratory [facility] [place] [address] [place] [phone] Ros[facility] Lab Scenery [address] ON LICENSE OF [facility] [place] [address] 08/30/2024 10:00 AM EST Hem/Onc Treatment Hematology/Oncology Treatment, [place] 200 [place] [address] Rosario, Chair 2 Hem Onc [facility] [address] 08/30/2024 1:30 PM EST Pharmacy Pharmacy Hematology Oncology [facility] [address] [place] [address] [facility], [facility] Hem/Onc [address] [place] [address] 09/01/2024 10:00 AM EST Office Visit Palliative Medicine [facility] [place] 200 [place] [address] MD [address] [place] [address] 09/02/2024 9:20 AM EST Telemedicine Neurology [facility] [place] [address] [place] [address] Clif Mckeon MD [address] [place] [address] 09/06/2024 8:20 AM EST Office Visit Family Medicine [address] [address] MD [address] [place] [address] [place] [address] 09/15/2024 7:30 AM EDT Laboratory Laboratory [address] [place] [address] [place], Lab [address] [place] [address] 09/16/2024 Hospital Encounter ENDO GECL, Endoscopy [address] [phone] Anabella Alberto DO [address] [place] [address] 09/22/2024 2:15 PM EDT Office Visit Hematology/Oncology [facility] [address] [place] [address] Flaquita Wilson MD [address] [place] [address] 09/22/2024 2:45 PM EDT Nurse Only Hematology/Oncology Treatment, [place] [address] [facility] [address] [place] [address] Rosario, Chair 11 Hem Onc [facility] 200 [facility] [place] [address] 11/16/2024 8:45 AM EDT Telemedicine Genetics HemOnc, [facility] [address] [place] [address] Nat Perez, [place] [address] [place] [address] 11/30/2024 9:00 AM EDT Office Visit Sleep Disorders Ctr [facility] [address] [place] [address] Silvia Holt CRNP [address] [place] [address] 02/09/2025 9:00 AM EDT Office Visit Family Medicine [address] [place] [phone] Lashawn Mejia MD [address] [place] [address] [place] [address] Scheduled Procedures Name Priority Associated Diagnoses Date/Ti [...] 023, 12/14/2020, 10/21/2007 CKD PHOS USE SMARTSET 12242 12/26/20232 07/2022, 01/16/2016, 02/16/2015, Additional history exists HbA1c 12/26/2023 12/25/2022, 07/0 07/2021, 12/14/2020, Additional history exists COVID-19 Vaccine ( season) 2024 Influenza Vaccine (FLU shot) (#1) 2024 05/14/2010 TSH 03/21/2024 03/21/2023, 08/0 09/2022, 12/25/2022, Additional history exists GFR 02/14/2025 08/17/2024, 2 03/2025, 06/07/2024, Additional history exists CKD HGB USE SMARTSET 02087 08/17/202508/17, 08/17/2024, 08/04/2024, Additional history exists Lipid [...] this encounter Medical Devices Implanted Type Area Cull Grader Device Identifier Shelf Expiration Date Model / Serial / Lot Port Implant W8f Poly Cath - [id number] Implanted:Qty : 1 on 09/05/2023 by Orville Zendejas MD at OR [facility] Right: Chest CR BARD : PERIPHERAL VASCULAR [id number] 06/05/2024 [id number] / / [id number] documented as of this encounter Advance Directives * Full Code (Latest Code Status on File) Date Activated Date Inactivated Comments 02/19/2022 1:10 PM 02/19/2022 8:22 PM This order r eflects the patients wishes and were consensually agreed upon. Question Answer Comments Discussion of Advance Directives occurred with: Not Discussed Care Teams Clinical Trial Manager Relationship Specialty Start Date End Date Lashawn Mejia MD [address] [place] [address] [place] [phone] PCP - General Family Medicine 09/22/20 documented as of this encounter
--- OUTSIDE RECORDS SUMMARY | 2024-10-01 03:28 | External Medical Summary | Summary of Care ---
Author Name Unknown Organization [facility] Address [address] [place] [address] Phone [phone] Care Team Providers Care Wirer Maintenance Name Role Phone Lashawn Mejia MD Primary Care Prov ider Reason for Visit * Reason Onset Date Comments Precert Future 08/17/2024 Keytruda/Lenvima Encounter Details Date Type Department Care Team (Late st Contact Info) Description 08/17/2024 Telephone Hematology/Oncology [facility] [address] [place] [phone] Flaquita Wilson MD [address] [place] [address] Precert Future (Keytruda/Lenvima ) Allergies Active Allergy [...] required to determine if the biopsy if internet sales representative. B. Skin, left vulva, biopsy: [...] RN - 08/27/2024 1:40 PM EST [facility] spoke to patient- she would like to be scheduled. Scheduling: please contact patient to schedule - labs "CBCd, CMP, TSH/T4"- can be day of or day prior - 2 hour appt "C1D1 keytruda" (Steve) Thanks! * Telephone Encounter - Ginette Carias OSA - 08/27/2024 1:28 PM EST Was sent to [facility] yesterday. MAC assistance completed * Telephone Encounter - Ginette Carias OSA - 08/26/2024 12:56 PM EST Assistance was applied for with Tim on 08/24-still in progress. When complete we can send to [facility] * Telephone Encounter - Bouchra Webster RN - 08/26/2024 10:56 AM EST Nurse education complete. Echo/ EKG today. Patient would like to know OOP costs before scheduling keytruda. Copay assistance in process. [facility]: can you please advise? Was patient approved for copay assistance? What is OOP cost estimate? Thanks! * Telephone Encounter - Bouchra Webster RN - 08/25/2024 8:33 AM EST Note from [facility] not available. Called patient- she states that her visit went well, they agreed withplan for keytruda/ lenvima. * Telephone Encounter - Chris Bazzi RN - 08/23/2024 3:59 PM EST Referral entered. * Telephone Encounter - Chris Bazzi RN - 08/17/2024 12:19 PM EST Orders received, plan built and routed. Pt is going for 2nd opinion at [facility] on 08/24 -- need to follow up on office visit note to see if they are in agreeable with the current plan. Awaiting auth. [facility]- fyi regarding orders for Lenvima. -Chemo Consent: [...] Description 08/30/2024 8:50 AM EST Laboratory Laboratory [facility] [place] 200 [facility] [place] [phone] [place], Lab [address] [facility] [place] [address] 08/30/2024 10:00 AM EST Hem/Onc Treatment Hematology/Oncology Treatment, [place] [address] [facility] [place] [phone] Rosario, Chair 2 Hem Onc [facility] 200 [facility] [place] [address] 08/30/2024 1:30 PM EST Pharmacy Pharmacy Hematology Oncology [address] [place] [address] [facility], [facility] Hem/Onc [address] [place] [address] 09/01/2024 10:00 AM EST Office Visit Palliative Medicine [place] [address] [facility] [address] [place] [address] MD [address] [place] [address] [place], [place] [phone] 09/02/2024 9:20 AM EST Telemedicine Neurology [address], [place] [address] [place] [address] Clif cMkeon MD [address] [place] [address] 09/06/2024 8:20 AM EST Office Visit Family Medicine [address] [address] MD [address] [place] [address] [place] [address] 09/15/2024 7:30 AM EDT Laboratory Laboratory [address] [place] [address] [place] [address] 09/16/2024 Hospital Encounter ENDO GECL, Endoscopy [address] [place] [address] Anabella Alberto DO [address] [place] [address] 09/22/2024 2:15 PM EDT Office Visit Hematology/Oncology [facility] 200 [facility] [place] [address] Flaquita Wilson MD [address] [place] [address] 09/22/2024 2:45 PM EDT Nurse Only Hematology/Oncology Treatment, [place] [address] [place] [phone] [place], Chair 11 Hem Onc [place] [address] [place] [address] 11/16/2024 8:45 AM EDT Telemedicine Genetics HemOnc, [facility] [address] [address] Nat Perez, [place] [address] [place] [address] 11/30/2024 9:00 AM EDT Office Visit Sleep Disorders Ctr [facility] [place] [address] [place] [phone] Silvia Holt CRNP [address] [place] [address] 02/09/2025 9:00 AM EDT Office Visit Family Medicine [address] [phone] Lashawn Mejia MD [address] [place] [address] [place] [address] Scheduled Procedures Name Priority Associated Diagnoses Date/Ti [...] 023, 12/14/2020, 10/21/2007 CKD PHOS USE SMARTSET 00089 12/26/202312/06, 01/16/2016, 02/16/2015, Additional history exists HbA1c 12/26/2023 12/25/2022, 07/0 07/2021, 12/14/2020, Additional history exists COVID-19 Vaccine ( season) 2024 Influenza Vaccine (FLU shot) (#1) 2024 05/14/2010 TSH 03/21/2024 03/21/2023, 08/0 09/2022, 12/25/2022, Additional history exists GFR 02/14/2025 08/17/2024, 2 03/2025, 06/07/2024, Additional history exists CKD HGB USE SMARTSET 25866 08/17/202508/17, 08/17/2024, 08/04/2024, Additional history exists Lipid [...] this encounter Medical Devices Implanted Type Area Side Show Entertainer Device Identifier Shelf Expiration Date Model / Serial / Lot Port Implant W8f Poly Cath - [id number] Implanted:Qty : 1 on 09/05/2023 by Orville Zendejas MD at [facility] Right: Chest CR BARD : PERIPHERAL VASCULAR [id number] 06/05/2024 [id number] / / [id number] documented as of this encounter Advance Directives * Full Code (Latest Code Status on File) Date Activated Date Inactivated Comments 02/19/2022 1:10 PM 02/19/2022 8:22 PM This order r eflects the patients wishes and were consensually agreed upon. Question Answer Comments Discussion of Advance Directives occurred with: Not Discussed Care Teams Wirer Maintenance Relationship Specialty Start Date End Date Lashawn Mejia MD [address] [place] [address] [place] [address] PCP - General Family Medicine 09/22/20 documented as of this encounter
--- OUTSIDE RECORDS SUMMARY | 2024-10-01 03:28 | External Medical Summary | Summary of Care ---
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 Not on file documented as of this encounter Plan of Treatment Upcoming Encounters Date Type Department Care Team (Late st Contact Info) Description 09/01/2024 10:00 AM EST Office Visit Palliative Medicine [facility] 200 [place] [address] MD [address] [place] [address] 09/01/2024 1:15 PM EST Pharmacy Pharmacy Hematology Oncology [facility] [address] [place] [address] [facility] Hem/Onc [address] [place] [address] 09/02/2024 9:20 AM EST Telemedicine Neurology [address] [place] [address] [place] [address] Clif Mckeon MD [address] [place] [address] 09/06/2024 8:20 AM EST Office Visit Family Medicine [address] [address] MD [address] [place] [address] [place] [phone] 09/06/2024 2:30 PM EST Hem/Onc Treatment Hematology/Oncology Treatment, [place] 200 [facility] [place] [phone] Rosario, Chair 2 Hem Onc [address] [place] [address] 09/13/2024 8:45 AM EDT Hem/Onc Treatment Hematology/Oncology Treatment, [address] [place] [phone] Rosario, Chair 9 Hem Onc [address] [place] [address] 09/16/2024 Hospital Encounter ENDO GECL, [address]oscopy [address] [address] Anabella Alberto, DO [address] [place] [address] 09/20/2024 7:50 AM EDT Laboratory Laboratory [facility] [place] [address] [place] [phone] Rosario, Lab [facility] 200 [facility] [place] [address] 09/20/2024 8:30 AM EDT Office Visit Hematology/Oncology [facility] [place] 200 [facility] [place] [phone] Belinda Christianson CRNP 400 [facility] [place] [address] 09/20/2024 9:00 AM EDT Hem/Onc Treatment Hematology/Oncology Treatment, [address] [place] [phone] Rosario, Chair 4 Hem Onc [address]en[address] 200 [facility] [place] [address] 09/22/2024 2:45 PM EDT Nurse Only Hematology/Oncology Treatment, [address] [place] [address] Rosario, Chair 11 Hem Onc Scenery [address] [facility] [address] 11/16/2024 8:45 AM EDT Telemedicine Genetics HemOnc, [facility] [address] [facility] [place] [address] Nat Perez, [place] [address] [place] [address] 11/30/2024 9:00 AM EDT Office Visit Sleep Disorders Ctr [facility] [place] [address] [place] [phone] Silvia Holt CRNP [address] [place] [address] 02/09/2025 9:00 AM EDT Office Visit Family Medicine [address] [phone] Lashawn Mejia MD [address] [place] [address] [place] [phone] Scheduled Procedures Name Priority Associated Diagnoses Date/Ti [...] 023, 12/14/2020, 10/21/2007 CKD PHOS USE SMARTSET 00336 12/26/2023 06/2 07/2022, 01/16/2016, 02/16/2015, Additional history exists HbA1c 12/26/2023 12/25/2022, 07/0 07/2021, 12/14/2020, Additional history exists Influenza Vaccine (FLU shot) (#1) 2024 05/14/2010 TSH 03/21/2024 03/21/2023, 08/0 09/2022, 12/25/2022, Additional history exists GFR 02/27/2025 08/30/2024, 08/07, 08/04/2024, Additional history exists CKD HGB USE SMARTSET 38832 08/30/202508/30, 08/30/2024, 08/17/2024, Additional history exists Lipid [...] this encounter Medical Devices Implanted Type Area Assembler Fishing Floats Device Identifier Shelf Expiration Date Model / Serial / Lot Port Implant W8f Poly Cath - [id number] Implanted:Qty : 1 on 09/05/2023 by Orville Zendejas MD at OR [facility] Right: Chest CR BARD : PERIPHERAL VASCULAR [id number] 06/05/2024 [id number] / / [id number] documented as of this encounter Visit Diagnoses [...] Directives occurred with: Not Discussed Care Teams High Pressure Kettle Operator Relationship Specialty Start Date End Date Lashawn Mejia MD [address] [place] [address] [place] [phone] PCP - General Family Medicine 09/22/20 documented as of this encounter
--- OUTSIDE RECORDS SUMMARY | 2024-10-01 03:29 | External Medical Summary | Summary of Care ---
Author Name Unknown Organization [facility] Address [address] [place] [address] Phone [phone] Care Team Providers Care Fusion Operator Name Role Phone Lashawn Mejia MD Primary Care Prov ider Reason for Visit * Reason Onset Date Comments Medication Refill 08/26/2024 Encounter Details Date Type Department Care Team (Late st Contact Info) Description 08/26/2024 Refill Neurology [facility] [address] [place] [address] Clif Mckeon MD [address] [place] [address] RLS (restless legs syndrome) Allergies Active Allergy Reactions Criticality Noted Date Comments Gabapentin Neuro complications (Please comment),Tachycardia 02/06/2023 Hallucinations documented as of this encounter (statuses as of 08/26/2024) Medications Lisinopril 5 MG Oral Tablet (Prinivil)Indicat ions:HTN, goal below 140/90 Take by mouth 1 Tablet in the morning. 90 Tablet 1 12/19/19 23 Active Ondansetron HCl 8 MG Oral TabletIndications [...] bedtime. 60 Tablet 2 08/26/19 25 Active clonazePAM 0.5 MG Oral Tablet (KlonoPIN)Indicat ions:RLS (restless legs syndrome) Take 1-2 tablets per mouth at bedtime. 60 Tablet 2 04/29/20 24 025 Disconti nued(Ref ill) documented as of this encounter (statuses as of 08/26/2024) Active Problems Problem Noted Date Diagnosed Date Encounter for antineoplastic chemotherapy 2023 Vulvar irritation 05/12/2023 Overview (05/12/2023): BIOPSY (05/06/2023) -- BENIGN A. Skin, right vulva, biopsy: Benign mature sebaceous glands with minimal inflammation. Negative for dysplasia and malignancy. Comment: The findings are non-specific, although sebaceous hyperplasia was considered. Clinical correlation is required to determine if the biopsy if business development representative. B. Skin, left vulva, biopsy: [...] as of this encounter (statuses as of 08/26/2024) Resolved Problems Problem Noted Date Diagnosed Date [...] as of this encounter (statuses as of 08/26/2024) Immunizations Name Administration Dates Next Due Seasonal [...] encounter Miscellaneous Notes * Telephone Encounter - Clif Mckeon MD - 08/26/2024 12:37 PM ESTSigned Prescriptions: Disp Refills clonazePAM 0.5 MG Oral Tablet (KlonoPIN) 60 Tab*2 Sig: Take 1-2 tablets per mouth at bedtime. Authorizing Provider: CLIF MCKEON * Telephone Encounter - Rosa Valentino LPN - 08/26/2024 8:53 AM EST Pending Prescriptions: Disp Refills clonazePAM 0.5 MG Oral Tablet (KlonoPIN) 60 Tab*2 Sig: Take 1-2tablets per mouth at bedtime. documented in this encounter Plan of Treatment Upcoming Encounters Date Type Department Care Team (Latest Contact Info) Description 08/27/2024 1:15 PM EST Pharmacy Pharmacy Hematology Oncology [address] [address] [facility] Hem/Onc [address] [place] [address] 08/30/2024 1:30 PM EST Pharmacy Pharmacy Hematology Oncology [facility] [address] [place] [address] [facility] Hem/Onc [address] [place] [address] 09/01/2024 10:00 AM EST Office Visit Palliative Medicine [facility] [address] [place] [address] MD [address] [place] [address] 09/02/2024 9:20 AM EST Telemedicine Neurology [facility] [place] [address] [place] [phone] Clif Mckeon MD [address] [place] [address] 09/06/2024 8:20 AM EST Office Visit Family Medicine [address] [phone] MD [address] [place] [address] [place] [phone] 09/15/2024 7:30 AM EDT Laboratory Laboratory [address] [place] [phone] [place] [address] 09/16/2024 2:41 PM EDT Hospital Encounter OR [facility], Operating Room, [facility] - 4th Floor [address] [place] [phone] Anabella Alberto, [address] [place] [address] 09/16/2024 2:41 PM EDT - 09/16/2024 3:11 PM EDT Surgery OR [facility], Operating Room, [facility] - 4th Floor [address] [place] [phone] Anabella Alberto, [address] [place] [address] SIGMOIDOSCOPY FLEXIBLE DIAGNOSTIC 09/22/2024 2:15 PM EDT Office Visit Hematology/Oncolog y Scenery Rosario [place] [address] [place] [phone] Flaquita [place] MD [address] [place] [address] 09/22/2024 2:45 PM EDT Nurse Only Hematology/Oncolog y Treatment, [place] [address] [place] [address] Rosario, Chair 11 Hem Onc Scenery [address] [place] [address] 11/16/2024 8:45 AM EDT Telemedicine Genetics HemOnc, [facility] [address] [place] [address] [place], [place] [address] [place] [address] 11/30/2024 9:00 AM EDT Office Visit Sleep Disorders Ctr Jett [facility] [place] 132 [facility] [place] [phone] Silvia Holt CRNP 132 [facility] [place] [address] 02/09/2025 9:00 AM EDT Office Visit Family Medicine [address] [place] [phone] Lashawn Mejia MD [address] [place] [address] [place] [address] Scheduled Procedures Name Priority Associated Diagnoses Date/Ti me SIGMOIDOSCOPY FLEXIBLE DIAGNOSTIC Endometrial cancer (HCC) 09/16/2024 2:41 PM EDT Health Maintenance Due Date Last Done Comments [...] 023, 12/14/2020, 10/21/2007 CKD PHOS USE SMARTSET 58133 12/26/202312/06, 01/16/2016, 02/16/2015, Additional history exists HbA1c 12/26/2023 12/25/2022, 07/0 07/2021, 12/14/2020, Additional history exists COVID-19 Vaccine ( season) 2024 Influenza Vaccine (FLU shot) (#1) 2024 05/14/2010 TSH 03/21/2024 03/21/2023, 08/0 09/2022, 12/25/2022, Additional history exists GFR 02/14/2025 08/17/2024, 07/08, 06/07/2024, Additional history exists CKD HGB USE SMARTSET 66061 08/17/202508/17, 08/17/2024, 08/04/2024, Additional history exists Lipid [...] this encounter Medical Devices Implanted Type Area Solar Installation Supervisor Device Identifier Shelf Expiration Date Model / Serial / Lot Port Implant W8f Poly Cath - [id number] Implanted:Qty : 1 on 09/05/2023 by Orville Zendejas MD at OR [facility] Right: Chest CR BARD : PERIPHERAL VASCULAR [id number] 06/05/2024 [id number] / / [id number] documented as of this encounter Visit Diagnoses Diagnosis RLS (restless legs syndrome) Restless legs syndrome (RLS) Endometrial cancer (HCC) Malignant neoplasm of corpus uteri, except isthmus documented in this encounter Advance Directives * Full Code (Latest Code Status on File) Date Activated Date Inactivated Comments 02/19/2022 1:10 PM 02/19/2022 8:22 PM This order r eflects the patients wishes and were consensually agreed upon. Question Answer Comments Discussion of Advance Directives occurred with: Not Discussed Care Teams Fusion Operator Relationship Specialty Start Date End Date Lashawn Mejia MD [address] [place] [address] [place] [address] PCP - General Family Medicine 09/22/20 documented as of this encounter
--- OUTSIDE RECORDS SUMMARY | 2024-10-01 03:29 | External Medical Summary | Summary of Care ---
Author Name Unknown Organization [facility] Address [address] [place] [address] Phone [phone] Care Team Providers Care Community Health Coordinator Name Role Phone Lashawn Mejia MD Primary Care Prov ider Reason for Visit * Reason Onset Date Comments Information 08/26/2024 Encounter Details Date Type Department Care Team (Late st Contact Info) Description 08/26/2024 Telephone Hematology/Oncology Treatment, [place] [address] [place] [phone] Flaquita [place] MD [address] [place] [address] Information Allergies Active Allergy Reactions Criticality Noted [...] required to determine if the biopsy if telemarketing representative. B. 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 Scheduling: please contact [facility] to have office note faxed/ scanned into [...] st Contact Info) Description 08/27/2024 1:15 PM EST Pharmacy Pharmacy Hematology Oncology [address] [address] [facility] Hem/Onc [address] [place] [address] 08/30/2024 1:30 PM EST Pharmacy Pharmacy Hematology Oncology [address] [address] [facility] Hem/Onc [address] [place] [address] 09/01/2024 10:00 AM EST Office Visit Palliative Medicine [facility] [address] [place] [address] MD [address] [place], [place] [address] [address] 09/02/2024 9:20 AM EST Telemedicine Neurology Titi Ortiz [address] [place], [place] [address] Clif Mckeon MD [address] [facility] [place] [phone] 09/06/2024 8:20 AM EST Office Visit Family Medicine [address] [place] [phone] MD [address] [place] [address] [place] [phone] 09/15/2024 7:30 AM EDT Laboratory Laboratory [address] [place] [phone] [place], Lab [address] [place] [address] 09/16/2024 Hospital Encounter ENDO [facility], Endoscopy [address] [address] Anabella Alberto DO [address] [place] [address] 09/22/2024 2:15 PM EDT Office Visit Hematology/Oncology [facility] Rosario [place] [address] [place] [address] Flaquita [place] MD [address] [place] [address] 09/22/2024 2:45 PM EDT Nurse Only Hematology/Oncology Treatment, [place] 200 [facility] [place] [address] Rosario, Chair 11 Hem Onc Scenery [address] [place] [address] 11/16/2024 8:45 AM EDT Telemedicine Genetics HemOnc, [facility] [address] [place] [address] [place], [place] [address] [place] [address] 11/30/2024 9:00 AM EDT Office Visit Sleep Disorders Ctr [facility] [address] [place] [phone] Silvia Holt CRNP [address] [place] [address] 02/09/2025 9:00 AM EDT Office Visit Family Medicine [address] [phone] Lashawn Mejia MD [address] [place] [address] [place], [place] [phone] Scheduled Procedures Name Priority Associated Diagnoses Date/Ti [...] 023, 12/14/2020, 10/21/2007 CKD PHOS USE SMARTSET 72104 12/26/202312/06, 01/16/2016, 02/16/2015, Additional history exists HbA1c 12/26/2023 12/25/2022, 07/0 07/2021, 12/14/2020, Additional history exists COVID-19 Vaccine ( season) 2024 Influenza Vaccine (FLU shot) (#1) 2024 05/14/2010 TSH 03/21/2024 03/21/2023, 08/0 09/2022, 12/25/2022, Additional history exists GFR 02/14/2025 08/17/2024, 07/08, 06/07/2024, Additional history exists CKD HGB USE SMARTSET 54172 08/17/202508/17, 08/17/2024, 08/04/2024, Additional history exists Lipid [...] this encounter Medical Devices Implanted Type Area Photographer Motion Picture Device Identifier Shelf Expiration Date Model / Serial / Lot Port Implant W8f Poly Cath - [id number] Implanted:Qty : 1 on 09/05/2023 by Orville Zendejas MD at OR [facility] Right: Chest CR BARD : PERIPHERAL VASCULAR [id number] 06/05/2024 [id number] / / [id number] documented as of this encounter Advance Directives * Full Code (Latest Code Status on File) Date Activated Date Inactivated Comments 02/19/2022 1:10 PM 02/19/2022 8:22 PM This order r eflects the patients wishes and were consensually agreed upon. Question Answer Comments Discussion of Advance Directives occurred with: Not Discussed Care Teams Community Health Coordinator Relationship Specialty Start Date End Date Lashawn Mejia MD [address] [place] [address] [place] [phone] PCP - General Family Medicine 09/22/20 documented as of this encounter
--- OUTSIDE RECORDS SUMMARY | 2024-10-01 03:29 | External Medical Summary | Summary of Care ---
Author Name Unknown Organization [facility] Address [address] [place] [address] Phone [phone] Care Team Providers Care Party Bus Driver Name Role Phone Lashawn Mejia MD Primary Care Prov ider Reason for Visit * Reason Comments Education Encounter Details Date Type Department Care Team (Late st Contact Info) Description 08/26/2024 9:30 AM EST Pt Ed by Nurse Hematology/Oncology [facility] [place] [address] [place] [address] Rosario, Nurse Hem Onc [facility] 200 [facility] [place] [address] Allergies Active Allergy Reactions Criticality Noted Date [...] 2 04/29/20 24 025 Disconti nued(Ref ill) Hospital, Clinic, or Other Facility Administered Medication Ordered Dose Route Frequency Start Date End Date Status perflutren lipid microsphere inj SUSP 1.956 mgIndications:Endometrial cancer (HCC) 1.956 mg IV ONCE PRN 08/26/2024 08/26/2024 Ended documented as of this encounter (statuses as [...] required to determine if the biopsy if commissary representative. B. Skin, left vulva, biopsy: Mild [...] 1:15 PM EST Pharmacy Pharmacy Hematology Oncology [address] [address] [facility] Hem/Onc [address] [place] [address] 08/30/2024 1:30 PM EST Pharmacy Pharmacy Hematology Oncology [address] [address] [facility] Hem/Onc [address] [place] [address] 09/01/2024 10:00 AM EST Office Visit Palliative Medicine [facility] [address] [place] [address] Merced Wya MD [address] [place] [phone] 09/02/2024 9:20 AM EST Telemedicine Neurology [place] [address] Clif Mckeon MD [address] [place] [address] 09/06/2024 8:20 AM EST Office Visit Family Medicine [address] [place] [address] MD [address] [place] [address] [place] [phone] 09/15/2024 7:30 AM EDT Laboratory Laboratory [address] [place] [address] [facility] Lab [address] [place] [address] 09/16/2024 2:41 PM EDT Hospital Encounter OR GL, Operating Room, [facility] - 4th Floor 400 [facility] [place] [phone] Anabella Alberto DO [address] [place] [address] 09/16/2024 2:41 PM EDT - 09/16/2024 3:11 PM EDT Surgery OR [facility], Operating Room, [facility] - 4th Floor [address] [place] [phone] Anabella Alberto DO [address] [place] [address] SIGMOIDOSCOPY FLEXIBLE DIAGNOSTIC 09/22/2024 2:15 PM EDT Office Visit Hematology/Oncolog y [facility] Rosario [place] 200 [facility] [place] [phone] Flaquita [place] MD [address] [place] [address] 09/22/2024 2:45 PM EDT Nurse Only Hematology/Oncolog y [employer] [address] [place] [address] Rosario, Chair 11 Hem Onc Scenery [address] [place] [address] 11/16/2024 8:45 AM EDT Telemedicine Genetics HemOnc, [facility] [address] [place] [address] Nat [place], [place] [address] [place] [address] 11/30/2024 9:00 AM EDT Office Visit Sleep Disorders Ctr [facility] [address] [place] [phone] Silvia Holt CRNP [address] [place] [address] 02/09/2025 9:00 AM EDT Office Visit [address] [place] [phone] Lashawn Mejia MD [address] [place] [address] [place] [address] Scheduled Procedures Name Priority Associated Diagnoses Date/Ti [...] 023, 12/14/2020, 10/21/2007 CKD PHOS USE SMARTSET 43452 12/26/202312/06, 01/16/2016, 02/16/2015, Additional history exists HbA1c 12/26/2023 12/25/2022, 07/0 07/2021, 12/14/2020, Additional history exists COVID-19 Vaccine ( season) 2024 Influenza Vaccine (FLU shot) (#1) 2024 05/14/2010 TSH 03/21/2024 03/21/2023, 080 09/2022, 12/25/2022, Additional history exists GFR 02/14/2025 08/17/2024, 07/08, 06/07/2024, Additional history exists CKD HGB USE SMARTSET 80162 08/17/202508/17, 08/17/2024, 08/04/2024, Additional history exists Lipid [...] this encounter Medical Devices Implanted Type Area Blanket Winder Helper Device Identifier Shelf Expiration Date Model / Serial / Lot Port Implant W8f Poly Cath - [id number] Implanted:Qty : 1 on 09/05/2023 by Orville Zendejas MD at [facility] Right: Chest CR BARD : PERIPHERAL VASCULAR [id number] 06/05/2024 [id number] / / [id number] documented as of this encounter Advance Directives * Full Code (Latest Code Status on File) Date Activated Date Inactivated Comments 02/19/2022 1:10 PM 02/19/2022 8:22 PM This order r eflects the patients wishes and were consensually agreed upon. Question Answer Comments Discussion of Advance Directives occurred with: Not Discussed Care Teams Party Bus Driver Relationship Specialty Start Date End Date Lashawn Mejia MD [address] [place] [address] [place] [phone] PCP - General Family Medicine 09/22/20 documented as of this encounter
--- OUTSIDE RECORDS SUMMARY | 2024-10-01 03:29 | External Medical Summary | Summary of Care ---
Author Name Unknown Organization [facility] Address [address] [place] [address] Phone [phone] Care Team Providers Care Blade Boner Name Role Phone Lashawn Mejia MD Primary Care Prov ider Reason for Visit * Reason Onset Date Comments Information 08/26/2024 Encounter Details Date Type Department Care Team (Late st Contact Info) Description 08/26/2024 Telephone Hematology/Oncology Treatment, [place] [address] [place] [phone] Flaquita [place] MD 200 [place] [address] Information Allergies Active Allergy Reactions Criticality Noted [...] Pain, Moderate. 60 Tablet 08/26/19 25 Active clonazePAM 0.5 MG Oral Tablet (KlonoPIN)Indicat ions:RLS (restless legs syndrome) Take 1-2 tablets per mouth at bedtime. 60 Tablet 2 04/29/20 24 025 Disconti nued(Ref ill) documented as of this encounter (statuses as of 08/26/2024) Active Problems Problem Noted Date Diagnosed Date Encounter for antineoplastic chemotherapy 02/20/ 2024 Vulvar irritation 05/12/2023 Overview (05/12/2023): BIOPSY (05/06/2023) -- BENIGN A. Skin, right vulva, biopsy: Benign mature sebaceous glands with minimal inflammation. Negative for dysplasia and malignancy. Comment: The findings are non-specific, although sebaceous hyperplasia was considered. Clinical correlation is required to determine if the biopsy if community health program representative. B. 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 Scheduling: please contact [facility] to have office note faxed/ scanned into [...] 1:15 PM EST Pharmacy Pharmacy Hematology Oncology [address] [address] [facility] Hem/Onc [address] [place] [address] 08/30/2024 1:30 PM EST Pharmacy Pharmacy Hematology Oncology [place] [address] [place] [address] [facility] Hem/Onc [address] [place] [address] 09/01/2024 10:00 AM EST Office Visit Palliative Medicine [facility] [address] [place] [address] MD [address] [place] [phone] 09/02/2024 9:20 AM EST Telemedicine Neurology Titi [address] [place] [address] Clif Mckeno MD [facility] [place] [address] 09/06/2024 8:20 AM EST Office Visit Family Medicine [address] [phone] MD [address] [place] [address] [place] [address] 09/15/2024 7:30 AM EDT Laboratory Laboratory [address] [place] [phone] [place], Lab [address] [place] [address] 09/16/2024 2:41 PM EDT Hospital Encounter OR GL, Operating Room, [facility] - 4th Floor [address] [place] [phone] Anabella Alberto DO [address] [place] [address] 09/16/2024 2:41 PM EDT - 09/16/2024 3:[address] PM EDT Surgery [facility], Operating Room, [facility] - 4th Floor [address] [place] [phone] Anabella Alberto DO [address] [place] [address] SIGMOIDOSCOPY FLEXIBLE DIAGNOSTIC 09/22/2024 2:15 PM EDT Office Visit Hematology/Oncolog y Scen[place] Rosario [place] [address] [place] [phone] Flaquita [place] MD [address] [place] [address] 09/22/2024 2:45 PM EDT Nurse Only Hematology/Oncolog y Treatment, [place] [address] [place] [phone] Rosario, Chair 11 Hem Onc Scenery [address] [place] [address] 11/16/2024 8:45 AM EDT Telemedicine Genetics HemOnc, [facility] 1000 [facility] [place] [address] [place], [place] [address] E [facility] [place] [phone] 11/30/2024 9:00 AM EDT Office Visit Sleep Disorders Ctr [facility] [address] [place] [address] Silvia Holt CRNP [address] [place] [address] 02/09/2025 9:00 AM EDT Office Visit Family Medicine [address] [place] [phone] Lashawn Mejia MD [address] [place] [address] [place] [phone] Scheduled Procedures Name Priority Associated Diagnoses Date/Ti [...] 023, 12/14/2020, 10/21/2007 CKD PHOS USE SMARTSET 28797 12/26/2023/07/2022, 01/16/2016, 02/16/2015, Additional history exists HbA1c 12/26/2023 12/25/2022, 07/0 07/2021, 12/14/2020, Additional history exists COVID-19 Vaccine ( season) 2024 Influenza Vaccine (FLU shot) (#1) 2024 05/14/2010 TSH 03/21/2024 03/21/2023, 09/2022, 12/25/2022, Additional history exists GFR 02/14/2025 08/17/2024, 07/08, 06/07/2024, Additional history exists CKD HGB USE SMARTSET 94475 08/17/202508/17, 08/17/2024, 08/04/2024, Additional history exists Lipid [...] this encounter Medical Devices Implanted Type Area Die Repair Machinist Device Identifier Shelf Expiration Date Model / Serial / Lot Port Implant W8f Poly Cath - [id number] Implanted:Qty : 1 on 09/05/2023 by Orville Zendejas MD at [facility] Right: Chest CR BARD : PERIPHERAL VASCULAR [id number] 06/05/2024 [id number] / / [id number] documented as of this encounter Advance Directives * Full Code (Latest Code Status on File) Date Activated Date Inactivated Comments 02/19/2022 1:10 PM 02/19/2022 8:22 PM This order r eflects the patients wishes and were consensually agreed upon. Question Answer Comments Discussion of Advance Directives occurred with: Not Discussed Care Teams Blade Boner Relationship Specialty Start Date End Date Lashawn Mejia MD [address] [place] [address] [place] [address] PCP - General Family Medicine 09/22/20 documented as of this encounter
--- OUTSIDE RECORDS SUMMARY | 2024-10-01 03:29 | External Medical Summary | Summary of Care ---
Author Name Unknown Organization [facility] Address [address] [place] [address] Phone [phone] Care Team Providers Care Landscape Photographer Name Role Phone Lashawn Mejia MD Primary Care Prov ider Reason for Visit * Reason Onset Date Comments Precert Future 08/17/2024 Keytruda/Lenvima ac Encounter Details Date Type Department Care Team (Late st Contact Info) Description 08/17/2024 Telephone Hematology/Oncology [facility] [place] 200 [place] [phone] Flaquita Wilson MD [address] [facility] [place] [address] Precert Future (Keytruda/Lenvima ac) Allergies Active Allergy Reactions Criticality Noted Date [...] bedtime. 12 Suppository 3 07/21/19 25 Active dexAMETHasone 4 MG Oral TabletIndications :Endometrial cancer [...] required to determine if the biopsy if hospital insurance representative. B. 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 When complete we can send to [facility] * Telephone Encounter - Bouchra Webster RN - 08/26/2024 10:56 AM EST Nurse education complete. Echo/ EKG today. Patient would like to know OOP costs before scheduling keytruda. Copay assistance in process. [facility]: can you please advise? Was patient approved for copay assistance? What is OOP cost estimate? Thanks! * Telephone Encounter - Bouchra Webster RN - 08/25/2024 8:33 AM EST Note from [facility] not available. Called patient- she states that her visit went well, they agreed withplan for keytruda/ lenvima. * Telephone Encounter - Chris Bazzi RN - 08/23/2024 3:59 PM EST Referral entered. * Telephone Encounter - Chris Bazzi RN - 08/17/2024 12:19 PM EST Orders received, plan built and routed. Pt is going for 2nd opinion at [facility] on 08/24 -- need to follow up on office visit note to see if they are in agreeable with the current plan. Awaiting auth. [facility]- i regarding orders for Lenvima. -Chemo Consent: [...] 1:15 PM EST Pharmacy Pharmacy Hematology Oncology [facility] [address] [place] [address] [facility] Hem/[place] [address] 08/30/2024 1:30 PM EST Pharmacy Pharmacy Hematology Oncology [place] [address] [place] [address] [facility] Hem/[place]c [place] [address] 09/01/2024 10:00 AM EST Office Visit Palliative Medicine [facility] 200 [place] [address] MD [address] [place] [address] [phone] 09/02/2024 9:20 AM EST Telemedicine Neurology Catalino Ortiz [place] [address] [place] [address] Clif Mckeon MD [address] [place], [place] [phone] 09/06/2024 8:20 AM EST Office Visit Family Medicine [address] [place] [address] MD [address] [place] [address] [place] [address] 09/15/2024 7:30 AM EDT Laboratory Laboratory [address] [place] [phone] [place] [address] 09/16/2024 2:41 PM EDT Hospital Encounter OR GL, Operating Room, [facility] - 4th Floor [address] [place] [phone] Anabella Alberto, [address] [place] [address] 09/16/2024 2:41 PM EDT - 09/16/2024 3:11 PM EDT Surgery OR [facility], Operating Room, [facility] - 4th Floor [address] [place] [phone] Anabella Alberto DO [address] [place] [address] SIGMOIDOSCOPY FLEXIBLE DIAGNOSTIC 09/22/2024 2:15 PM EDT Office Visit Hematology/Oncolog y Scenery [facility] [place] [address] [place] [phone] Flaquita Wilson MD [address] [place] [address] 09/22/2024 2:45 PM EDT Nurse Only Hematology[facility]olog [facility] [place] [address] [place] [address] Rosario, Chair 11 Hem Onc Scenery [address] [place] [address] 11/16/2024 8:45 AM EDT Telemedicine Genetics HemOnc, [facility] [address] [place] [address] [place], [place] [address] [facility] [place] [address] 11/30/2024 9:00 AM EDT Office Visit Sleep Disorders Ctr [facility] [address] [place] [phone] Silvia Holt CRNP [address] [place] [address] 02/09/2025 9:00 AM EDT Office Visit Family [address] [place] [address] Lashawn Mejia MD [address] [place] [address] [place] [address] Scheduled Procedures Name Priority Associated Diagnoses Date/Ti [...] 023, 12/14/2020, 10/21/2007 CKD PHOS USE SMARTSET 27034 12/26/2023 06/07/2022, 01/16/2016, 02/16/2015, Additional history exists HbA1c 12/26/2023 12/25/2022, 07/0 07/2021, 12/14/2020, Additional history exists COVID-19 Vaccine ( season) 2024 Influenza Vaccine (FLU shot) (#1) 2024 05/14/2010 TSH 03/21/2024 03/21/2023, 0 09/2022, 12/25/2022, Additional history exists GFR 02/14/2025 08/17/2024, 07/08, 06/07/2024, Additional history exists CKD HGB USE SMARTSET 50020 08/17/202508/17, 08/17/2024, 08/04/2024, Additional history exists Lipid [...] this encounter Medical Devices Implanted Type Area Shear Grinder Operator Device Identifier Shelf Expiration Date Model / Serial / Lot Port Implant W8f Poly Cath - [id number] Implanted:Qty : 1 on 09/05/2023 by Orville Zendejas MD at [facility] Right: Chest CR BARD : PERIPHERAL VASCULAR [id number] 06/05/2024 [id number] / / [id number] documented as of this encounter Advance Directives * Full Code (Latest Code Status on File) Date Activated Date Inactivated Comments 02/19/2022 1:10 PM 02/19/2022 8:22 PM This order r eflects the patients wishes and were consensually agreed upon. Question Answer Comments Discussion of Advance Directives occurred with: Not Discussed Care Teams Landscape Photographer Relationship Specialty Start Date End Date Lashawn Mejia MD [address] [place] [address] [place] [phone] PCP - General Family Medicine 09/22/20 documented as of this encounter
--- OUTSIDE RECORDS SUMMARY | 2024-10-01 03:29 | External Medical Summary | Summary of Care ---
Author Name Unknown Organization [facility] Address [address] [place] [address] Phone [phone] Care Team Providers Care Music Supervisor Name Role Phone Lashawn Mejia MD Primary Care Prov ider Reason for Visit * Reason Onset Date Comments Information 08/26/2024 Encounter Details Date Type Department Care Team (Late st Contact Info) Description 08/26/2024 Telephone Hematology/Oncology Treatment, [place] [address] [place] [phone] Flaquita Wilson MD 200 [place] [address] Information Allergies Active Allergy Reactions Criticality Noted [...] required to determine if the biopsy if tax compliance representative. B. 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 Scheduling: please contact [facility] to have office note faxed/ scanned [...] 1:15 PM EST Pharmacy Pharmacy Hematology Oncology [address] [address] [facility] Hem/Onc [address] [place] [address] 08/30/2024 1:30 PM EST Pharmacy Pharmacy Hematology Oncology [address] [address] [facility] Hem/Onc [address] [place] [address] 09/01/2024 10:00 AM EST Office Visit Palliative Medicine [facility] [address] [place] [address] MD [address] [place] [address] [address] 09/02/2024 9:20 AM EST Telemedicine Neurology Titi Ortiz [address] [place], [place] [address] Clif Mckeon MD [address] [facility] [place] [phone] 09/06/2024 8:20 AM EST Office Visit Family Medicine [address] [place] [phone] MD [address] [place] [address] [place] [phone] 09/15/2024 7:30 AM EDT Laboratory Laboratory [address] [place] [phone] [place], Lab [address] [place] [address] 09/16/2024 Hospital Encounter ENDO [facility], Endoscopy [address] [address] Anabella Alberto DO [address] [place] [address] 09/22/2024 2:15 PM EDT Office Visit Hematology/Oncology [facility] [place] [address] [place] [address] Flaquita Wilson MD [address] [place] [address] 09/22/2024 2:45 PM EDT Nurse Only Hematology/Oncology Treatment, [place] 200 [facility] [place] [address] Rosario, Chair 11 Hem Onc Scenery [address] [place] [address] 11/16/2024 8:45 AM EDT Telemedicine Genetics HemOnc, [facility] [address] [place] [address] [place], [place] [address] [place] [address] 11/30/2024 9:00 AM EDT Office Visit Sleep Disorders Ctr [facility] [address] [place] [phone] Silvia Holt CRNP [address] [place] [address] 02/09/2025 9:00 AM EDT Office Visit Family Medicine [address] [address] Lashawn Mejia MD [address] [place] [address] [place], [place] [phone] Scheduled Procedures Name Priority Associated Diagnoses Date/Ti [...] 023, 12/14/2020, 10/21/2007 CKD PHOS USE SMARTSET 63884 12/26/202312/06, 01/16/2016, 02/16/2015, Additional history exists HbA1c 12/26/2023 12/25/2022, 07/0 07/2021, 12/14/2020, Additional history exists COVID-19 Vaccine ( season) 2024 Influenza Vaccine (FLU shot) (#1) 2024 05/14/2010 TSH 03/21/2024 03/21/2023, 08/0 09/2022, 12/25/2022, Additional history exists GFR 02/14/2025 08/17/2024, 07/08, 06/07/2024, Additional history exists CKD HGB USE SMARTSET 41869 08/17/202508/17, 08/17/2024, 08/04/2024, Additional history exists Lipid [...] this encounter Medical Devices Implanted Type Area Television Producer Device Identifier Shelf Expiration Date Model / Serial / Lot Port Implant W8f Poly Cath - [id number] Implanted:Qty : 1 on 09/05/2023 by Orville Zendejas MD at [facility] Right: Chest CR BARD : PERIPHERAL VASCULAR [id number] 06/05/2024 [id number] / / [id number] documented as of this encounter Advance Directives * Full Code (Latest Code Status on File) Date Activated Date Inactivated Comments 02/19/2022 1:10 PM 02/19/2022 8:22 PM This order r eflects the patients wishes and were consensually agreed upon. Question Answer Comments Discussion of Advance Directives occurred with: Not Discussed Care Teams Music Supervisor Relationship Specialty Start Date End Date Lashawn Mejia MD [address] [place] [address] [place] [phone] PCP - General Family Medicine 09/22/20 documented as of this encounter
--- OUTSIDE RECORDS SUMMARY | 2024-10-01 03:29 | External Medical Summary | Summary of Care ---
Author Name Unknown Organization [facility] Address [address] [place] [address] Phone [phone] Care Team Providers Care Local Sales Manager Name Role Phone Lashawn Mejia MD Primary Care Prov ider Reason for Visit * Reason Onset Date Comments Information 08/26/2024 Encounter Details Date Type Department Care Team (Late st Contact Info) Description 08/26/2024 Telephone Hematology/Oncology Treatment, [place] [address] [place] [phone] Flaquita Wilson MD 200 [place] [address] Information Allergies Active Allergy Reactions Criticality Noted [...] to determine if the biopsy if patient intake representative. B. Skin, left vulva, biopsy: Mild [...] MyG or return call. Scheduling: please contact [facility] to have office note faxed/ scanned [...] Description 08/30/2024 8:50 AM EST Laboratory Laboratory [facility] [place] 200 [facility] [place] [phone] Rosario, Lab [address] [facility] [place] [address] 08/30/2024 10:00 AM EST Hem/Onc Treatment Hematology/Oncology Treatment, [place] [address] [place] [address] Rosario, Chair 2 Hem Onc [facility] 200 [facility] [place] [address] 08/30/2024 1:30 PM EST Pharmacy Pharmacy Hematology Oncology [place] [address] [place] [address] [facility] [place] Hem/Onc [facility] [place] [address] 09/01/2024 10:00 AM EST Office Visit Palliative Medicine [facility] 200 [facility] [phone] MD 400 [place] [address] 09/02/2024 9:20 AM EST Telemedicine Neurology [place] [address] [place] [address] Clif Mckeon MD 100 [facility] [place] [address] 09/06/2024 8:20 AM EST Office Visit Family Medicine [address] [phone] MD [address] [place] [address] [place] [phone] 09/15/2024 7:30 AM EDT Laboratory Laboratory [address] [place] [phone] [facility] Lab [address] [place] [address] 09/16/2024 Hospital Encounter ENDO [facility], Endoscopy [address] [address] Anabella Alberto DO [address] [place] [address] 09/22/2024 2:15 PM EDT Office Visit Hematology/Oncology [address] [place] [address] Flaquita Wilson MD 200 [facility] [place] [address] 09/22/2024 2:45 PM EDT Nurse Only Hematology/Oncology Treatment, [address] [place] [address] Rosario, Chair 11 Hem Onc Scenery [address] [facility] [address] 11/16/2024 8:45 AM EDT Telemedicine Genetics HemOnc, [facility] [address] [place] [address] [place], [place] [address] [place] [address] 11/30/2024 9:00 AM EDT Office Visit Sleep Disorders Ctr Jett Belcher [place] [address] [place] [phone] Silvia Holt CRNP [address] [place] [address] 02/09/2025 9:00 AM EDT Office Visit Family Medicine [address] [phone] Lashawn Mejia MD [address] [place] [address] [place] [address] Scheduled Procedures Name Priority Associated Diagnoses Date/Ti [...] 023, 12/14/2020, 10/21/2007 CKD PHOS USE SMARTSET 79270 12/26/202312/06, 01/16/2016, 02/16/2015, Additional history exists HbA1c 12/26/2023 12/25/2022, 07/2021, 12/14/2020, Additional history exists COVID-19 Vaccine ( season) 2024 Influenza Vaccine (FLU shot) (#1) 2024 05/14/2010 TSH 03/21/2024 03/21/2023, 09/2022, 12/25/2022, Additional history exists GFR 02/14/2025 08/17/2024, 07/08, 06/07/2024, Additional history exists CKD HGB USE SMARTSET 86116 08/17/202508/17, 08/17/2024, 08/04/2024, Additional history exists Lipid [...] this encounter Medical Devices Implanted Type Area It Lead Device Identifier Shelf Expiration Date Model / Serial / Lot Port Implant W8f Poly Cath - [id number] Implanted:Qty : 1 on 09/05/2023 by Orville Zendejas MD at OR [facility] Right: Chest CR BARD : PERIPHERAL VASCULAR [id number] 06/05/2024 [id number] / / [id number] documented as of this encounter Advance Directives * Full Code (Latest Code Status on File) Date Activated Date Inactivated Comments 02/19/2022 1:10 PM 02/19/2022 8:22 PM This order r eflects the patients wishes and were consensually agreed upon. Question Answer Comments Discussion of Advance Directives occurred with: Not Discussed Care Teams Local Sales Manager Relationship Specialty Start Date End Date Lashawn Mejia MD [address] [place] [address] [place] [address] PCP - General Family Medicine 09/22/20 documented as of this encounter
--- OUTSIDE RECORDS SUMMARY | 2024-10-01 03:29 | External Medical Summary | Summary of Care ---
Author Name Unknown Organization [facility] Address [address] [place] [address] Phone [phone] Care Team Providers Care Capsule Inspector Name Role Phone Lashawn Mejia MD Primary Care Prov ider Reason for Visit * Reason Onset Date Comments Precert Future 08/17/2024 Keytruda/Lenvima ac Encounter Details Date Type Department Care Team (Late st Contact Info) Description 08/17/2024 Telephone Hematology/Oncology [facility] [place] 200 [facility] [place] [phone] Flaquita Wilson MD [address] [facility] [place] [address] Precert Future (Keytruda/Lenvima ac) Allergies Active Allergy [...] required to determine if the biopsy if goodwill representative. B. 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 When complete we can send to [facility] * Telephone Encounter - Bouchra Webster RN - 08/26/2024 10:56 AM EST Nurse education complete. Echo/ EKG today. Patient would like to know OOP costs before scheduling keytruda. Copay assistance in process. [facility]: can you please advise? Was patient [...] Pt is going for 2nd opinion at [facility] on 08/24 -- need to follow up on office visit note to see if they are in agreeable with the current plan. Awaiting auth. [facility]- i regarding orders for Lenvima. -Chemo [...] Hematology Oncology [facility] [address] [place] [address] [facility] Hem/Onc [facility] [place] [address] 08/30/2024 1:30 PM EST Pharmacy Pharmacy Hematology Oncology [place] [address] [place] [address] [facility], [facility] Hem/Onc [facility] [place] [address] 09/01/2024 10:00 AM EST Office Visit Palliative Medicine [facility] 200 [place] [address] MD [address] [place] [phone] 09/02/2024 9:20 AM EST Telemedicine Neurology Catalino Ortiz [place] [address] [place] [address] Clif Mckeon MD [address] [place], [place] [phone] 09/06/2024 8:20 AM EST Office Visit Family Medicine [address] [place] [address] MD [address] [place] [address] [place] [address] 09/15/2024 7:30 AM EDT Laboratory Laboratory [address] [place] [phone] [place] [address] 09/16/2024 2:41 PM EDT Hospital Encounter OR GL, Operating Room, [facility] - 4th Floor [address] [place] [phone] Anabella Alberto, [address] [place] [address] 09/16/2024 2:41 PM EDT - 09/16/2024 3:11 PM EDT Surgery [facility], Operating Room, [facility] - 4th Floor [address] [place] [phone] Anabella Alberto DO [address] [place] [address] SIGMOIDOSCOPY FLEXIBLE DIAGNOSTIC 09/22/2024 2:15 PM EDT Office Visit Hematology/Oncolog y Scenery Rosario [place] [address] [place] [phone] Flaquita Wilson MD [address] [place] [address] 09/22/2024 2:45 PM EDT Nurse Only Hematology/Oncolog y [facility] [place] [address] [place] [address] Rosario, Chair 11 Hem Onc Scenery [address] [place] [address] 11/16/2024 8:45 AM EDT Telemedicine Genetics HemOnc, [facility] [address] [place] [address] [place], [place] [address] [facility] [place] [address] 11/30/2024 9:00 AM EDT Office Visit Sleep Disorders Ctr [facility] [address] [place] [phone] Silvia Holt CRNP [address] [place] [address] 02/09/2025 9:00 AM EDT Office Visit Family [address] [place] [address] Lashawn Mejia MD [address] [place] [address] [place] [address] Scheduled Procedures Name Priority Associated Diagnoses Date/Ti [...] 023, 12/14/2020, 10/21/2007 CKD PHOS USE SMARTSET 60446 12/26/2023 06/07/2022, 01/16/2016, 02/16/2015, Additional history exists HbA1c 12/26/2023 12/25/2022, 07/0 07/2021, 12/14/2020, Additional history exists COVID-19 Vaccine ( season) 2024 Influenza Vaccine (FLU shot) (#1) 2024 05/14/2010 TSH 03/21/2024 03/21/2023, 0 09/2022, 12/25/2022, Additional history exists GFR 02/14/2025 08/17/2024, 07/08, 06/07/2024, Additional history exists CKD HGB USE SMARTSET 07505 08/17/202508/17, 08/17/2024, 08/04/2024, Additional history exists Lipid [...] this encounter Medical Devices Implanted Type Area Concert Manager Device Identifier Shelf Expiration Date Model / Serial / Lot Port Implant W8f Poly Cath - [id number] Implanted:Qty : 1 on 09/05/2023 by Orville Zendejas MD at [facility] Right: Chest CR BARD : PERIPHERAL VASCULAR [id number] 06/05/2024 [id number] / / [id number] documented as of this encounter Advance Directives * Full Code (Latest Code Status on File) Date Activated Date Inactivated Comments 02/19/2022 1:10 PM 02/19/2022 8:22 PM This order r eflects the patients wishes and were consensually agreed upon. Question Answer Comments Discussion of Advance Directives occurred with: Not Discussed Care Teams Capsule Inspector Relationship Specialty Start Date End Date Lashawn Mejia MD [address] [place] [address] [place] [phone] PCP - General Family Medicine 09/22/20 documented as of this encounter
--- OUTSIDE RECORDS SUMMARY | 2024-10-01 03:29 | External Medical Summary | Summary of Care ---
Author Name Unknown Organization [facility] Address [address] [place] [address] Phone [phone] Care Team Providers Care Spinning Machine Tender Name Role Phone Lashawn Mejia MD Primary Care Prov ider Reason for Visit * Reason Onset Date Comments Medication Refill 08/26/2024 Encounter Details Date Type Department Care Team (Late st Contact Info) Description 08/26/2024 Refill Family Medicine [address] [phone] Lashawn Mejia MD [address] [place] [address] [phone] HTN, goal below 140/90 Allergies Active Allergy Reactions Criticality Noted Date [...] bedtime. 60 Tablet 2 08/26/19 25 Active oxyCODONE-Acetami nophen 5-325 MG Oral Tablet (Percocet)Indicat ions:Endometrial cancer (HCC) Take 1 Tablet by mouth every 4 hours as needed for Pain, Moderate. 60 Tablet 08/26/19 25 Active Lisinopril 5 MG Oral Tablet (Prinivil)Indicat ions:HTN, goal below 140/90 Take 1 Tablet by mouth in the morning. 90 Tablet 1 08/27/19 25 Active Lisinopril 5 MG Oral Tablet (Prinivil)Indicat ions:HTN, goal below 140/90 Take by mouth 1 Tablet in the morning. 90 Tablet 1 12/19/19 23 025 Disconti nued(Ref ill) documented as of [...] to determine if the biopsy if technical service representative. B. 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 Not on file documented as of this encounter Miscellaneous Notes * Telephone Encounter - Dave Ortiz [facility] - 08/27/2024 8:51 AM ESTSigned Prescriptions: Disp Refills Lisinopril 5 MG Oral Tablet (Prinivil) 90 Tab*1 Sig: Take 1 Tablet by mouth in the morning.Authorizing Provider: LASHAWN MEJIA User: DAVE LAW documented in this encounter Plan of Treatment Upcoming Encounters Date Type Department Care Team (Late st Contact Info) Description 08/27/2024 1:15 PM EST Pharmacy Pharmacy Hematology Oncology [address] [address] [facility] Hem/Onc [address] [place] [address] 08/30/2024 1:30 PM EST Pharmacy Pharmacy Hematology Oncology [address] [place] [address] [facility] Hem/Onc [address] [place] [address] 09/01/2024 10:00 AM EST Office Visit Palliative Medicine [place] [facility] [place] [address] [facility] [address] MD [address] [place], [place] [address] [place] [id number] 09/02/2024 9:20 AM EST Telemedicine Neurology [place], [place] [address] [place] [address] Clif Mckeon MD [address] [place] [address] 09/06/2024 8:20 AM EST Office Visit Family Medicine [address] [phone] MD [address] [place] [address] [place] [address] 09/15/2024 7:30 AM EDT Laboratory Laboratory [address] [place] [address] [facility] [address] [place] [address] 09/16/2024 Hospital Encounter ENDO [facility], Endoscopy [address] [address] Anabella Alberto DO [address] [place] [address] 09/22/2024 2:15 PM EDT Office Visit Hematology/Oncology [facility] 200 [facility] [address] [place] [address] Flaquita Wilson MD [address] [place] [address] 09/22/2024 2:45 PM EDT Nurse Only Hematology/Oncology Treatment, [place] [address] [place] [phone] Park, Chair 11 Hem Onc Scenery [address] [place] [address] 11/16/2024 8:45 AM EDT Telemedicine Genetics HemOnc, [facility] [address] [place] [address] Nat Perez, [place] [address] [facility] [place] [address] 11/30/2024 9:00 AM EDT Office Visit Sleep Disorders Ctr [facility] [address] [place] [phone] Silvia Holt CRNP [address] [place] [address] 02/09/2025 9:00 AM EDT Office Visit Family Medicine [address] [phone] Lashawn Mejia MD [address] [place] [address] [place] [address] Scheduled Procedures Name Priority Associated Diagnoses Date/Ti [...] 023, 12/14/2020, 10/21/2007 CKD PHOS USE SMARTSET 27080 12/26/202312/06, 01/16/2016, 02/16/2015, Additional history exists HbA1c 12/26/2023 12/25/2022, 07/0 07/2021, 12/14/2020, Additional history exists COVID-19 Vaccine ( season) 2024 Influenza Vaccine (FLU shot) (#1) 2024 05/14/2010 TSH 03/21/2024 03/21/2023, 08/0 09/2022, 12/25/2022, Additional history exists GFR 02/14/2025 08/17/2024, 2 03/2025, 06/07/2024, Additional history exists CKD HGB USE SMARTSET 11826 08/17/202508/17, 08/17/2024, 08/04/2024, Additional history exists Lipid [...] this encounter Medical Devices Implanted Type Area Search Marketing Specialist Device Identifier Shelf Expiration Date Model / Serial / Lot Port Implant W8f Poly Cath - [id number] Implanted:Qty : 1 on 09/05/2023 by Orville Zendejas MD at [facility] Right: Chest CR BARD : PERIPHERAL VASCULAR [id number] 06/05/2024 [id number] / / [id number] documented as of this encounter Visit Diagnoses Diagnosis HTN, goal below 140/90 Unspecified essential hypertension documented in this encounter Advance Directives * Full Code (Latest Code Status on File) Date Activated Date Inactivated Comments 02/19/2022 1:10 PM 02/19/2022 8:22 PM This order r eflects the patients wishes and were consensually agreed upon. Question Answer Comments Discussion of Advance Directives occurred with: Not Discussed Care Teams Spinning Machine Tender Relationship Specialty Start Date End Date Lashawn Mejia MD [address] [place] [address] [place] [phone] PCP - General Family Medicine 09/22/20 documented as of this encounter
--- OUTSIDE RECORDS SUMMARY | 2024-10-01 03:29 | External Medical Summary | Summary of Care ---
Author Name Unknown Organization [facility] Address [address] [place] [address] Phone [phone] Care Team Providers Care Fancy Wire Drawer Name Role Phone Lashawn Mejia MD Primary Care Prov ider Reason for Visit * Reason Onset Date Comments Information 08/26/2024 Encounter Details Date Type Department Care Team (Late st Contact Info) Description 08/26/2024 Telephone Hematology/Oncology Treatment, [place] [address] [place] [phone] Flaquita Wilson MD 200 [place] [address] Information Allergies Active Allergy Reactions Criticality Noted [...] required to determine if the biopsy if malt liquors sales representative. B. 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 Not able find. Please can you print and give me on Friday. No need for sigmoidoscopy and stent at this point. " Attempted to call patient. Left message that I would send MyG, asked that she either check MyG or return call. Scheduling: please contact [facility] to have office note faxed/ scanned [...] 1:15 PM EST Pharmacy Pharmacy Hematology Oncology [address] [address] [facility] Hem/Onc [address] [place] [address] 08/30/2024 1:30 PM EST Pharmacy Pharmacy Hematology Oncology [address] [address] [facility] Hem/Onc [address] [place] [address] 09/01/2024 10:00 AM EST Office Visit Palliative Medicine [facility] [address] [place] [address] MD [address] [place] [address] 09/02/2024 9:20 AM EST Telemedicine Neurology [place] [address] Clif Mckeon MD [address] [place] [address] 09/06/2024 8:20 AM EST Office Visit Family Medicine [address] [place] [phone] MD [address] [place] [address] [place] [phone] 09/15/2024 7:30 AM EDT Laboratory Laboratory [address] [place] [address] [facility] [address] [place] [address] 09/16/2024 2:41 PM EDT Hospital Encounter OR GL, Operating Room, [facility] - 4th Floor 400 [facility] [place] [phone] Anabella Alberto DO [address] [place] [address] 09/16/2024 2:41 PM EDT - 09/16/2024 3:11 PM EDT [facility], Operating Room, [facility] - 4th Floor [address] [facility] [place] [phone] Anabella Alberto DO [address] [place] [address] SIGMOIDOSCOPY FLEXIBLE DIAGNOSTIC 09/22/2024 2:15 PM EDT Office Visit Hematology/Oncolog y [facility] Amy Ponce [address] [place] [phone] Flaquita Wilson MD [address] [place] [address] 09/22/2024 2:45 PM EDT Nurse Only Hematology/Oncolog y [facility] [employer] [address] [place] [address] Rosario, Chair 11 Hem Onc Scenery [address] [place] [address] 11/16/2024 8:45 AM EDT Telemedicine Genetics HemOnc, [facility] [address] [place] [address] Nat Perez, [place] [address] [place] [address] 11/30/2024 9:00 AM EDT [facility] [address] [place] [phone] Silvia Holt CRNP [address] [place] [address] 02/09/2025 9:00 AM EDT Office Visit Family [address] [place] [phone] Lashawn Mejia MD [address] [place] [address] [place] [address] Scheduled Procedures Name Priority Associated Diagnoses Date/Ti [...] 023, 12/14/2020, 10/21/2007 CKD PHOS USE SMARTSET 20823 12/26/20232 07/2022, 01/16/2016, 02/16/2015, Additional history exists HbA1c 12/26/2023 12/25/2022, 07/0 07/2021, 12/14/2020, Additional history exists COVID-19 Vaccine ( season) 2024 Influenza Vaccine (FLU shot) (#1) 2024 05/14/2010 TSH 03/21/2024 03/21/2023, 08/0 09/2022, 12/25/2022, Additional history exists GFR 02/14/2025 08/17/2024, 07/08, 06/07/2024, Additional history exists CKD HGB USE SMARTSET 51172 08/17/202508/17, 08/17/2024, 08/04/2024, Additional history exists Lipid [...] this encounter Medical Devices Implanted Type Area Emissions Engineer Device Identifier Shelf Expiration Date Model / Serial / Lot Port Implant W8f Poly Cath - [id number] Implanted:Qty : 1 on 09/05/2023 by Orville Zendejas MD at [facility] Right: Chest CR BARD : PERIPHERAL VASCULAR [id number] 06/05/2024 [id number] / / [id number] documented as of this encounter Advance Directives * Full Code (Latest Code Status on File) Date Activated Date Inactivated Comments 02/19/2022 1:10 PM 02/19/2022 8:22 PM This order r eflects the patients wishes and were consensually agreed upon. Question Answer Comments Discussion of Advance Directives occurred with: Not Discussed Care Teams Fancy Wire Drawer Relationship Specialty Start Date End Date Lashawn Mejia MD [address] [place] [address] [place] [phone] PCP - General Family Medicine 09/22/20 documented as of this encounter
--- OUTSIDE RECORDS SUMMARY | 2024-10-01 03:30 | External Medical Summary | Summary of Care ---
Author Name Unknown Organization [facility] Address [address] [place] [address] Phone [phone] Care Team Providers Care Technical Operations Specialist Name Role Phone Lashawn Mejia MD Primary Care Prov ider Reason for Visit * Reason Onset Date Comments Precert Future 08/17/2024 Keytruda/Lenvima Encounter Details Date Type Department Care Team (Late st Contact Info) Description 08/17/2024 Telephone Hematology/Oncology [facility] [address] [place] [phone] Flaquita Wilson MD [address] [place] [address] Precert Future (Keytruda/Lenvima) Allergies Active Allergy Reactions Criticality Noted Date Comments Gabapentin Neuro complications (Please comment),Tachycardia 02/06/2023 Hallucinations documented as of this encounter (statuses as of 08/25/2024) Medications Lisinopril 5 MG Oral Tablet (Prinivil)Indicat [...] 2024. 30 Capsule 5 05/06/20 24 Active clonazePAM 0.5 MG Oral Tablet (KlonoPIN)Indicat ions:RLS (restless legs syndrome) Take 1-2 tablets per mouth at bedtime. 60 Tablet 2 04/29/20 24 Active oxyBUTYnin Chloride ER 5 MG Oral Tablet Extended Release 24 Hour (Ditropan XL) Take 1 Tablet by mouth in the morning. 30 Tablet 11 07/01/20 24 Active Hydrocortisone Acetate 25 MG Rectal Suppository (Anusol HC) Administer 1 Suppository into the rectum at bedtime. 12 Suppository 3 07/21/19 25 Active oxyCODONE-Acetami nophen 5-325 MG Oral Tablet (Percocet)Indicat ions:Endometrial cancer (HCC) Take 1 Tablet by mouth every 4 hours as needed for Pain, Moderate. 30 Tablet 08/17/19 25 Active dexAMETHasone 4 MG Oral TabletIndications [...] 3 07/29/19 25 025 Disconti nued(Ref ill) documented as of this encounter (statuses as of 08/25/2024) Active Problems Problem Noted Date Diagnosed Date Encounter for antineoplastic chemotherapy 2023 Vulvar irritation 05/12/2023 Overview (05/12/2023): BIOPSY (05/06/2023) -- BENIGN A. Skin, right vulva, biopsy: Benign mature sebaceous glands with minimal inflammation. Negative for dysplasia and malignancy. Comment: The findings are non-specific, although sebaceous hyperplasia was considered. Clinical correlation is required to determine if the biopsy if administrative representative. B. Skin, left vulva, biopsy: Mild [...] as of this encounter (statuses as of 08/25/2024) Resolved Problems Problem Noted Date Diagnosed Date [...] as of this encounter (statuses as of 08/25/2024) Immunizations Name Administration Dates Next Due Seasonal [...] No 04/27/2024 Does the household have a [facility] source of income? (Household - for [...] Miscellaneous Notes * Telephone Encounter - Bouchra Webster, RN - 08/25/2024 8:33 AM EST Note from [facility] not available. Called patient- she states that her visit went well, they agreed withplan for keytruda/ lenvima. * Telephone Encounter - Chris Bazzi RN - 08/23/2024 3:59 PM EST Referral entered. * Telephone Encounter - Chris Bazzi RN - 08/17/2024 12:19 PM EST Orders received, plan built and routed. Pt is going for 2nd opinion at [facility] on 08/24 -- need to follow up on office visit note to see if they are in agreeable with the current plan. Awaiting auth. [facility] regarding orders for Lenvima. -Chemo Consent: 08/17/24 -Chemo Education: Not Scheduled- pt is having second opinion on 08/24. -Port Placement: Already placed -Standing Lab orders placed: CBCD,CMP,TSH/T4 -Medications Pended: Pt previously prescribed Zofran -Hep B Labs: Completed 08/27/23 documented in this encounter Plan of Treatment Upcoming Encounters Date Type Department Care Team (Latest Contact Info) Description 08/25/2024 9:45 AM EST Pharmacy Pharmacy Hematology Oncology [facility] [address] [place] [address] [facility] Hem/Onc [address] [place] [address] 08/26/2024 10:00 AM EST Pt Ed by Nurse Hematology/Oncolog y State Amy Stark [address] [place] [address] Nurse Rosario Hem Onc Scenery [address] [place] [address] 09/01/2024 8:00 AM EST Office Visit Family Medicine [address] [phone] MD [address] [place] [address] [place] [phone] 09/01/2024 8:30 AM EST Laboratory Laboratory [address] [place] [phone] [place] [address] 09/01/2024 10:00 AM EST Office Visit Palliative Medicine [facility] 200 [place] [address] MD 400 [place] [address] 09/02/2024 9:20 AM EST Telemedicine Neurology [address] [place] [address] Clif Mckeon MD 100 [facility] [place] [address] 09/15/2024 7:30 AM EDT Laboratory Laboratory [address] [place] [phone] [place] [address] 09/16/2024 2:41 PM EDT Hospital Encounter OR [facility], Operating Room, [facility] - 4th Floor [address] [place] [phone] Anabella Alberto DO [address] [place] [address] 09/16/2024 2:41 PM EDT - 09/16/2024 3:11 PM EDT Surgery OR [facility], Operating Room, [facility] - 4th Floor [address] [place] [address] Anabella Alberto DO [address] [place] [address] SIGMOIDOSCOPY FLEXIBLE DIAGNOSTIC 09/22/2024 2:15 PM EDT Office Visit Hematology/Oncolog y Scenery Rosario [place] [address] [place] [address] Flaquita Wilson MD [address] [place] [address] 09/22/2024 2:45 PM EDT Nurse Only Hematology/Oncolog y Treatment, [place] [address] [place] [address] Rosario, Chair 11 Hem Onc Scenery [address] [place] [address] 11/16/2024 8:45 AM EDT Telemedicine Genetics HemOnc, [facility] [address] [facility] [place] [address] Nat Perez, [place] [address] [place] [address] 11/30/2024 9:00 AM EDT Office Visit Sleep Disorders Ctr [facility] [place] [address] [place] [phone] Silvia Holt CRNP [address] [place] [address] 02/09/2025 9:00 AM EDT Office Visit Family Medicine [address] [phone] Lashawn Mejia MD [address] [place] [address] [place] [address] Scheduled Procedures Name Priority Associated Diagnoses Date/Ti [...] 023, 12/14/2020, 10/21/2007 CKD PHOS USE SMARTSET 33562 12/26/202[address] 07/2022, 01/16/2016, 02/16/2015, Additional history exists HbA1c 12/26/2023 12/25/2022, 07/0 07/2021, 12/14/2020, Additional history exists COVID-19 Vaccine ( season) 2024 Influenza Vaccine (FLU shot) (#1) 2024 05/14/2010 TSH 03/21/2024 03/21/2023, 08/0 09/2022, 12/25/2022, Additional history exists GFR 02/14/2025 08/17/2024, 01/2 03/2025, 06/07/2024, Additional history exists CKD HGB USE SMARTSET 60279 08/17/202508/17, 08/17/2024, 08/04/2024, Additional history exists Lipid [...] this encounter Medical Devices Implanted Type Area Associate Material Handler Device Identifier Shelf Expiration Date Model / Serial / Lot Port Implant W8f Poly Cath - [id number] Implanted:Qty : 1 on 09/05/2023 by Orville Zendejas MD at [facility] Right: Chest CR BARD : PERIPHERAL VASCULAR [id number] 06/05/2024 [id number] / / [id number] documented as of this encounter Advance Directives * Full Code (Latest Code Status on File) Date Activated Date Inactivated Comments 02/19/2022 1:10 PM 02/19/2022 8:22 PM This order r eflects the patients wishes and were consensually agreed upon. Question Answer Comments Discussion of Advance Directives occurred with: Not Discussed Care Teams Technical Operations Specialist Relationship Specialty Start Date End Date Lashawn eMjia MD [address] [place] [address] [place] [address] PCP - General Family Medicine 09/22/20 documented as of this encounter
--- OUTSIDE RECORDS SUMMARY | 2024-10-01 03:30 | External Medical Summary | Summary of Care ---
Author Name Unknown Organization [facility] Address [address] [place] [address] Phone [phone] Care Team Providers Care Associate Pathologist Name Role Phone Lashawn Mejia MD Primary Care Prov ider Reason for Visit * Reason Onset Date Comments Encounter Created in Error 08/18/2024 Encounter Details Date Type Department Care Team (Late st Contact Info) Description 08/18/2024 Telephone Hematology/Oncology Treatment, [place] [address] [place] [address] Flaquita Wilson MD 200 [place] [address] Encounter Created in Error Allergies Active Allergy Reactions Criticality Noted Date Comments Gabapentin Neuro complications (Please comment),Tachycardia 02/06/2023 Hallucinations documented as of this encounter (statuses as of 08/19/2024) Medications Lisinopril 5 MG Oral Tablet (Prinivil)Indicati ons:HTN, goal below 140/90 Take by mouth 1 Tablet in the morning. 90 Tablet 1 12/19/19 23 Active Ondansetron HCl 8 MG Oral TabletIndications: Endometrial [...] 24 Active clonazePAM 0.5 MG Oral Tablet (KlonoPIN)Indicati [...] 25 Active rOPINIRole HCl 3 MG Oral TabletIndications: Restless legs syndrome Take 1 Tablet by mouth in the morning and 1 Tablet at noon and 1 Tablet in the evening and 1 Tablet before bedtime. 120 Tablet 3 07/29/19 25 Active oxyCODONE-Acetamin ophen 5-325 MG Oral Tablet (Percocet)Indicati ons:Endometrial cancer (HCC) Take 1 Tablet by mouth every 4 hours as needed for Pain, Moderate. 30 Tablet 08/17/19 25 Active documented as of this encounter (statuses as of 08/19/2024) Active Problems Problem Noted Date Diagnosed Date Encounter for antineoplastic chemotherapy 2023 Vulvar irritation 05/12/2023 Overview (05/12/2023): BIOPSY (05/06/2023) -- BENIGN A. Skin, right vulva, biopsy: Benign mature sebaceous glands with minimal inflammation. Negative for dysplasia and malignancy. Comment: The findings are non-specific, although sebaceous hyperplasia was considered. Clinical correlation is required to determine if the biopsy if wire rope sales representative. B. 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 file documented as of this encounter Plan of Treatment Upcoming Encounters Date Type Department Care Team (Latest Contact Info) Description 08/25/2024 9:45 AM EST Pharmacy Pharmacy Hematology Oncology [facility] [address] [place] [address] [facility] Hem[facility]Onc [address] [place] [address] 08/26/2024 10:00 AM EST Pt Ed by Nurse Hematology/Oncolog y Emy Ponce [place] [address] [place] [address] Rosario Nurse Hem Onc [facility] [address] [place] [address] 09/01/2024 8:00 AM EST Office Visit Family Medicine [address] [place] [phone] MD [address] [place] [address] [place] [address] 09/01/2024 8:30 AM EST Laboratory Laboratory [address] [place] [address] [place], Lab [address] [place] [address] 09/01/2024 10:00 AM EST Office Visit Palliative Medicine Emy Ponce [address] [place] [address] MD [address] [place] [address] 09/02/2024 9:20 AM EST Telemedicine Neurology [address] [place] [phone] Clif Mckeon MD 100 [facility] [place] [phone] 09/15/2024 7:30 AM EDT Laboratory Laboratory [address] [place] [phone] [place], [address] [place] [address] 09/16/2024 2:41 PM EDT Hospital Encounter OR [place], Operating Room, [facility] - 4th Floor 400 [place] [phone] Anabella Alberto DO [address] [place] [address] 09/16/2024 2:41 PM EDT - 09/16/2024 3:11 PM EDT Surgery OR [facility], Operating Room, [facility] Floor 400 [facility] [place] [phone] Anabella Alberto DO [address] [place] [address] SIGMOIDOSCOPY FLEXIBLE DIAGNOSTIC 09/22/2024 2:15 PM EDT Office Visit Hematology/Oncolog y [facility] Rosario [place] [address] [place] [address] Flaquita Wilson MD [address] [place] [address] 09/22/2024 2:45 PM EDT Nurse Only Hematology/Oncolog y Treatment, [place] [address] [place] [address] Rosario, Chair 11 Hem Onc Sc[place] [address] [place] [address] 11/16/2024 8:45 AM EDT Telemedicine Genetics HemOnc, [facility] [address] [place] [address] Nat Perez, [place] [address] [place] [address] 11/30/2024 9:00 AM EDT Office Visit Sleep Disorders Ctr [facility] [address] [place] [phone] Silvia Holt CRNP [address] [place] [address] 02/09/2025 9:00 AM EDT Office Visit Family Medicine [address] [phone] Lashawn Mejia MD [address] [place] [address] [place] [address] Scheduled Procedures Name Priority Associated Diagnoses Date/Ti [...] 023, 12/14/2020, 10/21/2007 CKD PHOS USE SMARTSET 81009 12/26/202312/06, 01/16/2016, 02/16/2015, Additional history exists HbA1c 12/26/2023 12/25/2022, 07/0 07/2021, 12/14/2020, Additional history exists COVID-19 Vaccine ( season) 2024 Influenza Vaccine (FLU shot) (#1) 2024 05/14/2010 TSH 03/21/2024 03/21/2023, 08/0 09/2022, 12/25/2022, Additional history exists GFR 02/14/2025 08/17/2024, 07/08, 06/07/2024, Additional history exists CKD HGB USE SMARTSET 12771 08/17/202508/17, 08/17/2024, 08/04/2024, Additional history exists Lipid [...] this encounter Medical Devices Implanted Type Area Pelts Skinner Device Identifier Shelf Expiration Date Model / Serial / Lot Port Implant W8f Poly Cath - [id number] Implanted:Qty : 1 on 09/05/2023 by Orville Zendejas MD at [facility] Right: Chest CR BARD : PERIPHERAL VASCULAR [id number] 06/05/2024 [id number] / / [id number] documented as of this encounter Advance Directives * Full Code (Latest Code Status on File) Date Activated Date Inactivated Comments 02/19/2022 1:10 PM 02/19/2022 8:22 PM This order r eflects the patients wishes and were consensually agreed upon. Question Answer Comments Discussion of Advance Directives occurred with: Not Discussed Care Teams Associate Pathologist Relationship Specialty Start Date End Date Lashawn Mejia MD [address] [place] [address] [place] [address] PCP - General Family Medicine 09/22/20 documented as of this encounter
--- OUTSIDE RECORDS SUMMARY | 2024-10-01 03:30 | External Medical Summary | Summary of Care ---
Author Name Unknown Organization [facility] Address [address] [place] [address] Phone [phone] Care Team Providers Care Private Investigator Surveillance Name Role Phone Lashawn Mejia MD Primary Care Prov ider Reason for Visit * Reason Onset Date Comments Encounter Created in Error 08/18/2024 Encounter Details Date Type Department Care Team (Late st Contact Info) Description 08/18/2024 Telephone Hematology/Oncology Treatment, [place] [address] [place] [phone] Flaquita Wilson MD 200 [place] [address] Encounter Created in Error Allergies Active Allergy [...] Pain, Moderate. 30 Tablet 08/17/19 25 Active rOPINIRole HCl 3 MG Oral [...] determine if the biopsy if technical sales representatives. B. Skin, left vulva, biopsy: Mild perifollicular [...] Department Care Team (Latest Contact Info) Description 08/26/2024 9:30 AM EST Pt Ed by Nurse Hematology/Oncolog y Emy Ponce [place] [address] [place] [phone] Rosario Nurse Hem Onc [place] [address] [place] [address] 08/26/2024 11:00 AM EST Cardiac Studies Cardiac Studies, [facility] 132 [facility] [place] [address] 08/27/2024 1:15 PM EST Pharmacy Pharmacy Hematology Oncology [address] [address] [facility], [facility] Hem/Onc [address] [place] [address] 08/30/2024 1:30 PM EST Pharmacy Pharmacy Hematology Oncology [address] [address] [facility], [facility] Hem/Onc [address] [place] [address] 09/01/2024 8:00 AM EST Office Visit [address] [phone] MD [address] [place] [address] [place] [address] 09/01/2024 8:30 AM EST Laboratory Laboratory [address] [place] [phone] [place] [address] 09/01/2024 10:00 AM EST Office Visit Palliative Medicine [facility] [address] [place] [address] MD 400 [place], [place] [phone] 09/02/2024 9:20 AM EST Telemedicine Neurology Catalino Ortiz [place] [address] [place] [address] Clif Mckeon MD 100 [place] [address] 09/15/2024 7:30 AM EDT Laboratory Laboratory [address] [place] [phone] [place] [address] 09/16/2024 2:41 PM EDT Hospital Encounter OR GL, Operating Room, [facility] - 4th Floor 400 [place] [facility] [address] Anabella Alberto DO [address] [place] [address] 09/16/2024 2:41 PM EDT - 09/16/2024 3:11 PM EDT Surgery OR [facility], Operating Room, [facility] - 4th Floor 400 [facility] [place] [address] Anabella Alberto DO [address] [place] [address] SIGMOIDOSCOPY FLEXIBLE DIAGNOSTIC 09/22/2024 2:15 PM EDT Office Visit Hematology/Oncolog y Scenery [facility] [address] [place] [phone] Flaquita Wilson MD [address] [place] [address] 09/22/2024 2:45 PM EDT Nurse Only Hematology/Oncolog y [facility] [address] [place] [address] Rosario, Chair 11 Hem Onc [place] [address] [place] [address] 11/16/2024 8:45 AM EDT Telemedicine Genetics HemOnc, [facility] [address] [place] [address] Nat Perez, [place] [address] [facility] [place] [address] 11/30/2024 9:00 AM EDT Office Visit Sleep Disorders Ctr [facility] [address] [place] [address] Silvia Holt CRNP [address] [place] [address] 02/09/2025 9:00 AM EDT Office Visit Family Medicine [address] [place] [phone] Lashawn Mejia MD [address] [place] [address] [place] [address] Scheduled Procedures Name Priority Associated Diagnoses Date/Ti [...] 023, 12/14/2020, 10/21/2007 CKD PHOS USE SMARTSET 24839 12/26/202312/06, 01/16/2016, 02/16/2015, Additional history exists HbA1c 12/26/2023 12/25/2022, 07/0 07/2021, 12/14/2020, Additional history exists COVID-19 Vaccine ( season) 2024 Influenza Vaccine (FLU shot) (#1) 2024 05/14/2010 TSH 03/21/2024 03/21/2023, 08/0 09/2022, 12/25/2022, Additional history exists GFR 02/14/2025 08/17/2024, 2 03/2025, 06/07/2024, Additional history exists CKD HGB USE SMARTSET 76907 08/17/202508/17, 08/17/2024, 08/04/2024, Additional history exists Lipid Panel 01/04/2027 01/04/2022, 09/04, 06/01/2016, Additional history exists Colonoscopy 07/13/2034 07/13/2024, 010 01/2025, 07/03/2023, Additional history exists Colorectal Cancer [...] this encounter Medical Devices Implanted Type Area Appointment Coordinator Device Identifier Shelf Expiration Date Model / Serial / Lot Port Implant W8f Poly Cath - [id number] Implanted:Qty : 1 on 09/05/2023 by Orville Zendejas MD at [facility] Right: Chest CR BARD : PERIPHERAL VASCULAR [id number] 06/05/2024 [id number] / / [id number] documented as of this encounter Advance Directives * Full Code (Latest Code Status on File) Date Activated Date Inactivated Comments 02/19/2022 1:10 PM 02/19/2022 8:22 PM This order r eflects the patients wishes and were consensually agreed upon. Question Answer Comments Discussion of Advance Directives occurred with: Not Discussed Care Teams Private Investigator Surveillance Relationship Specialty Start Date End Date Lashawn Mejia MD [address] [place] [address] [place] [phone] PCP - General Family Medicine 09/22/20 documented as of this encounter
--- OUTSIDE RECORDS SUMMARY | 2024-10-01 03:30 | External Medical Summary | Summary of Care ---
Author Name Unknown Organization [facility] Address [address] [place] [address] Phone [phone] Care Team Providers Care Money Order Clerk Name Role Phone Lashawn Mejia MD Primary Care Prov ider Reason for Visit * Reason Onset Date Comments Medication Refill 08/18/2024 Encounter Details Date Type Department Care Team (Late st Contact Info) Description 08/18/2024 Refill Family Medicine [address] [phone] Lashawn Mejia MD [address] [place] [phone] Restless legs syndrome Allergies Active Allergy Reactions Criticality Noted Date Comments Gabapentin Neuro complications (Please comment),Tachycardia 02/06/2023 Hallucinations documented as of this encounter (statuses as of 08/20/2024) Medications Lisinopril 5 MG Oral Tablet (Prinivil)Indicat [...] bedtime. 120 Tablet 3 08/20/19 25 Active rOPINIRole HCl 3 MG Oral TabletIndications :Restless legs syndrome Take 1 Tablet by mouth in the morning and 1 Tablet at noon and 1 Tablet in the evening and 1 Tablet before bedtime. 120 Tablet 3 07/29/19 25 025 Disconti nued(Ref ill) documented as of this encounter (statuses as of 08/20/2024) Active Problems Problem Noted Date Diagnosed Date Encounter for antineoplastic chemotherapy 2023 Vulvar irritation 05/12/2023 Overview (05/12/2023): BIOPSY (05/06/2023) -- BENIGN A. Skin, right vulva, biopsy: Benign mature sebaceous glands with minimal inflammation. Negative for dysplasia and malignancy. Comment: The findings are non-specific, although sebaceous hyperplasia was considered. Clinical correlation is required to determine if the biopsy if sales and service representative. B. 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 Authorizing Provider: LASHAWN MEJIA * Telephone Encounter - Yoly Nails CMA - 08/19/2024 7:53 AM ESTPending Prescriptions: Disp Refills rOPINIRole HCl 3 MG Oral Tablet 120 Ta*3 Sig: Take 1 Tablet by mouth in the morning and 1 Tablet at noon and 1 Tablet in the evening and 1 Tablet before bedtime. * Telephone Encounter - Yoly Nails CMA - 08/19/2024 7:52 AM EST Pending Prescriptions: Disp Refills rOPINIRole HCl 3 MG Oral Tablet 120 Ta*3 Sig: Take 1 Tablet by mouth in the morning and 1 Tablet at noon and 1 Tablet in the evening and 1 Tablet before bedtime. 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 Restless legs syndrome Other allergic rhinitis Vitamin B deficiency Vitamin D deficiency Female stress incontinence Dyslipidemia, goal LDL below 100 Urge incontinence of urine CHON (obstructive sleep apnea) DDD (degenerative disc disease), cervical Iron deficiency anemia Prediabetes Moderate episode of recurrent major depressive disorder (HCC) Hypertension goal BP (blood pressure) < 140/90 Endometrial cancer (HCC) Chronic kidney disease, stage 3a (HCC) Class 3 severe obesity due to excess calories with serious comorbidity and body mass index (BMI) of50.0 to 59.9 in adult (HCC) Vulvar irritation Encounter for antineoplastic chemotherapy Labs: Lab Results Component Value Date/Time CREATININE - [facility] 1.4 (H) 08/17/2024 08:33 AM CREATININE - [facility] 1.58 (A) 01/10/2023 12:00 AM CREATININE - [facility] 1.5 (H) 09/24/2013 08:43 AM CREATININE, RANDOM URINE - [facility] 167 12/25/2022 10:41 AM CREATININE, RANDOM URINE - [facility] 226 10/21/2007 09:38 AM Lab Results Component Value Date/Time POTASSIUM - [facility] 4.2 08/17/2024 08:33 AM POTASSIUM - [facility] 4.2 01/10/2023 12:00 AM POTASSIUM - [facility] 4.4 09/24/2013 08:43 AM Lab Results Component Value Date/Time TSH - [facility] 0.37 03/21/2023 10:39 AM TSH - [facility] 3.38 06/03/2014 09:48 AM Lab Results Component Value Date/Time LDL (CALCULATED) 99 01/16/2016 12:00 AM LDL (CALCULATED)-OUTSIDE LAB 132 (A) 06/01/2016 12:00 AM LDL (CALCULATED)-OUTSIDE LAB 139 (A) 02/16/2015 12:00 AM LDL CHOLESTEROL (CALCULATED) - [facility] 116 01/04/2022 11:25 AM LDL CHOLESTEROL (CALCULATED) - [facility] 129 09/21/2020 10:12 AM LDL CHOLESTEROL (CALCULATED) - [facility] 116 (H) 02/09/2010 09:10 AM LDL CHOLESTEROL (CALCULATED) - [facility] 113 (H) 10/21/2007 09:38 AM LDL CHOLESTEROL (DIRECT MEASURE) - [facility] 153 (H) 10/06/2009 11:22 AM LDL CHOLESTEROL (DIRECT MEASURE) - [facility] 101 (H) 02/15/2009 02:35 PM Lab Results Component Value Date/Time ALT - [facility] 5 (L) 08/17/2024 08:33 AM ALT - [facility] 34 09/06/2011 08:15 AM ALT-OUTSIDE LAB 17 08/03/2016 12:00 AM Hemoglobin AIC Results: Lab Results Component Value Date/Time HEMOGLOBIN A1C - [facility] 5.8 (H) 12/25/2022 10:41 AM HEMOGLOBIN A1C - [facility] 5.4 01/04/2022 11:25 AM HEMOGLOBIN A1C - [facility] 6.0 (H) 12/14/2020 10:39 AM * Telephone Encounter - Chris Heard - 08/18/2024 7:31 PM ESTPending Prescriptions: Disp Refills rOPINIRole HCl 3 MG Oral Tablet 120 Ta*3 Sig: Take 1 Tablet bymouth in the morning and 1 Tablet at noon and 1 Tablet in the evening and 1 Tablet before bedtime.-- documented in this encounter Plan of Treatment Upcoming Encounters Date Type Department Care Team (Latest Contact Info) Description 08/25/2024 9:45 AM EST Pharmacy Pharmacy Hematology Oncology [facility] [address] [place] [address] [facility] Hem[facility]Onc [address] [place] [address] 08/26/2024 10:00 AM EST Pt Ed by Nurse Hematology/Oncolog y Emy Ponce [place] 200 [facility] [place] [address] Rosario Nurse Hem Onc [facility] 200 [facility] [place] [address] 09/01/2024 8:00 AM EST Office Visit Family Medicine [address] [phone] MD [address] [place] [address] [place] [phone] 09/01/2024 8:30 AM EST Laboratory Laboratory [address] [place] [phone] [place], Lab [address] [place] [address] 09/01/2024 10:00 AM EST Office Visit Palliative Medicine Emy Ponce [place] [address] [facility] [address] MD [address] [place] [address] [place], [place] [phone] 09/02/2024 9:20 AM EST Telemedicine Neurology [place] [address] [place] [address] [place] [address] Clif Mckeon MD [address] [place] [address] 09/15/2024 7:30 AM EDT Laboratory Laboratory [address] [place] [phone] [place], Lab [address] [place] [address] 09/16/2024 2:41 PM EDT Hospital Encounter OR [facility], Operating Room, [facility] - 4th Floor 400 [facility] [phone] Anabella Alberto DO [address] [place] [address] 09/16/2024 2:41 PM EDT - 09/16/2024 3:11 PM EDT Surgery OR [facility], Operating Room, [facility] - 4th Floor 400 [facility] [place] [phone] Anabella Alberto DO [address] [place] [address] SIGMOIDOSCOPY FLEXIBLE DIAGNOSTIC 09/22/2024 2:15 PM EDT Office Visit Hematology/Oncolog y [place] Rosario [place] [address] [place] [address] Flaquita Wilson MD [address] [place] [address] 09/22/2024 2:45 PM EDT Nurse Only Hematology/Oncolog y Treatment, [place] [address] [place] [address] Rosario, Chair 11 Hem Onc [place] [address] [place] [address] 11/16/2024 8:45 AM EDT Telemedicine Genetics HemOnc, [facility] [address] [place] [address] Nat Perez, [place] [address] [place] [address] 11/30/2024 9:00 AM EDT Office Visit Sleep Disorders Ctr [facility] [address] [place] [phone] Silvia Holt CRNP [address] [place] [address] 02/09/2025 9:00 AM EDT Office Visit Family Medicine [address] [phone] Lashawn Mejia MD [address] [place] [address] [place] [address] Scheduled Procedures Name Priority Associated Diagnoses Date/Ti [...] 023, 12/14/2020, 10/21/2007 CKD PHOS USE SMARTSET 14721 12/26/202312/06, 01/16/2016, 02/16/2015, Additional history exists HbA1c 12/26/2023 12/25/2022, 07/0 07/2021, 12/14/2020, Additional history exists COVID-19 Vaccine ( season) 2024 Influenza Vaccine (FLU shot) (#1) 2024 05/14/2010 TSH 03/21/2024 03/21/2023, 080 09/2022, 12/25/2022, Additional history exists GFR 02/14/2025 08/17/2024, 07/08, 06/07/2024, Additional history exists CKD HGB USE SMARTSET 75689 08/17/202508/17, 08/17/2024, 08/04/2024, Additional history exists Lipid [...] this encounter Medical Devices Implanted Type Area Waistline Joiner Device Identifier Shelf Expiration Date Model / Serial / Lot Port Implant W8f Poly Cath - [id number] Implanted:Qty : 1 on 09/05/2023 by Orville Zendejas MD at [facility] Right: Chest CR BARD : PERIPHERAL VASCULAR [id number] 06/05/2024 [id number] / / [id number] documented as of this encounter Visit Diagnoses Diagnosis Restless legs syndrome Restless legs syndrome (RLS) Endometrial cancer (HCC) [...] Directives occurred with: Not Discussed Care Teams Money Order Clerk Relationship Specialty Start Date End Date Lashawn Mejia MD [address] [place] [address] [place] [phone] PCP - General Family Medicine 09/22/20 documented as of this encounter
--- OUTSIDE RECORDS SUMMARY | 2024-10-01 03:30 | External Medical Summary | Summary of Care ---
Author Name Unknown Organization [facility] Address [address] [place] [address] Phone [phone] Care Team Providers Care Petroleum Refining Firer Name Role Phone Lashawn Mejia MD Primary Care Prov ider Reason for Visit * Reason Comments Medication Management Encounter Details Date Type Department Care Team (Late st Contact Info) Description 08/25/2024 9:45 AM [facility] Pharmacy Pharmacy Hematology Oncology [facility] [address] [place] [address] [facility] Hem/Onc [address] [place] [address] Endometrial cancer (HCC)* Allergies Active Allergy Reactions Criticality Noted Date Comments Gabapentin Neuro complications (Please comment),Tachycardia 02/06/2023 Hallucinations documented as of this encounter (statuses as of 08/25/2024) Medications Lisinopril 5 MG Oral Tablet (Prinivil)Indicati [...] bedtime. 12 Suppository 3 07/21/19 25 Active oxyCODONE-Acetamin ophen 5-325 MG Oral [...] bedtime. 120 Tablet 3 08/20/19 25 Active documented as of this encounter [...] required to determine if the biopsy if senior outside sales representative. B. Skin, left vulva, [...] as of this encounter Progress Notes * Garcia Dinorah Esmer, [facility] - 08/25/2024 8:35 AM EST MEDICATION THERAPY MANAGEMENT LENVATINIB TREATMENT STATUS NOTE Lissette CARY [phone] Patient Phone Numbers Communication: Chart review Treatment: Medication: Lenvatinib (Lenvima) Indication/Staging/Diagnosis Code: endometrial cancer / C54.1 Dose: 20mg daily Administration: +/- food Start Date: Primary Picking Belt Operator/Oncologist: Dr. Wilson Additional Therapy: Pembrolizumab Supportive Care Meds: Ondansetron Prochlorperazine (to be ordered in beacon plan) Prophylactic Meds: Urea cream (to be ordered in beacon plan) Relevant Chronic Medications: Category Medications Pertinent Notes Antihypertensives Lisinopril 5mg daily Per PCP Thyroid Levothyroxine 200mcg daily Per PCP Review of therapy: Line of therapy: second Previous therapy: 2021: ARISTEO and BSO 09/2023-03/2024: Paclitaxel/Carboplatin/RT Reviewed dosage prescribed for appropriateness (based on indication, hepatic function,renal function, etc): no changes Are appropriate supportive care medications prescribed? No, additional antiemetic to be ordered in beacon plan Are appropriate prophylactic medications prescribed? No, HFS ppx to be ordered in beacon plan Have baseline labs/tests been obtained? No, baseline EKG and ECHO ordered and staff message sent toscheduling Has hepatitis B screening been completed? Yes Potential drug-drug drug-herbal, drug-food, drug-disease interactions: Yes, Nortriptyline / Lenvatinib: may enhance the QTc-prolonging effect of QT- prolonging Agents Recommendation: Monitor for QTc interval prolongation and ventricular arrhythmias (including torsades de pointes) when these drugs are combined. Patients with other risk factors (eg, older age, female sex, bradycardia, hypokalemia, hypomagnesemia, heart disease, and higher drug concentrations) are likely at greater risk for these potentially life-threatening toxicities Action: Will obtain repeat EKG and assess for arrhythmias The Hematology/Oncology Oral Chemotherapy Clinic will assess medication compliance at each patient encounter Assessment and Plan: Per OV 08/17/24, pt has 2nd opinion appt at [facility] [place] 08/24/24 Per discussion with STEPHEN Shook, [facility] and pt agreeable with current treatment plan [place] plan uploaded and sent to Dr. Wilson for signature MTM to follow up in 2 days for intro/med rec and 3 days to assess beacon plan signature and auth status Yes/no Date Action Taken [place] plan entered? yes 08/25/24 Consent completed? yes 08/17/24 Intro/med rec completed? Precert completed? Test claim completed? Financial assistance needed? Physician signature? Rx released? Education completed? Follow up: 2 and 3 days Dinorah Garcia, PharmD, BCOP Clinical Pharmacist, [facility] Oral Chemotherapy [facility] 08/25/2024, 8:44 AM Monitoring Parameters: Estimated CrCl Serum creatinine: 1.4 mg/dL (H) 08/17/24 0833 Estimated creatinine clearance: 61.7 mL/min (A) Hepatitis [...] meds) BP Readings from Last 3 Encounters: 08/17/24 117/80 08/04/24 120/78 07/13/24 145/86 Date QTc 01/10/23 334 ms Date LVEF 09/29/20 55% Treatment Parameters Pertinent labs: N/A Time Spent on Encounter: 11 - 15 minutes Encounter Group: Oncology Encounter Interventions Item Category: Oral Chemotherapy Lenvatinib Problem/Rationale: Indication: Needs additional medication therapy - Untreated condition, - Synergistic therapy [place] Plan Review: Initial Plan/upload Pharmacist Intervention(s): Care coordination, Discussed patient with nursing, Orders labs, and Referral review Magnitude of Intervention: Monitoring with direction (Level 1) documented in this encounter Plan of Treatment Upcoming Encounters Date Type Department Care Team (Latest Contact Info) Description 08/26/2024 10:00 AM EST Pt Ed by Nurse Hematology/Oncolog y Emy Ponce [place] [address] [place] [phone] Rosario Nurse Hem Onc [facility] [address] [place] [address] 08/27/2024 1:15 PM EST Pharmacy Pharmacy Hematology Oncology [address] [address] [facility] Hem/Onc [facility] [place] [address] 08/30/2024 1:30 PM EST Pharmacy Pharmacy Hematology Oncology [place] [address] [place] [address] [facility] Hem/Onc [address] [place] [address] 09/01/2024 8:00 AM EST Office Visit Family Medicine [address] [place] [address] MD [address] [place] [address] [place] [phone] 09/01/2024 8:30 AM EST Laboratory Laboratory [address] [place] [phone] [place] [address] 09/01/2024 10:00 AM EST Office Visit Palliative Medicine [facility] [address] [place] [address] MD [address] [place] [address] 09/02/2024 9:20 AM EST Telemedicine Neurology [place] [address] Clif Mckeon MD [address] [place], [place] [phone] 09/15/2024 7:30 AM EDT Laboratory Laboratory [address] [place] [phone] [place] [address] 09/16/2024 2:41 PM EDT Hospital Encounter OR [facility], Operating Room, [facility] - 4th Floor [address] [place] [address] Anabella Alberto DO [address] [place] [address] 09/16/2024 2:41 PM EDT - 09/16/2024 3:11 PM EDT Surgery OR [facility], Operating Room, [facility] - 4th Floor 400 [place] [phone] Anabella Alberto DO [address] [place] [address] SIGMOIDOSCOPY FLEXIBLE DIAGNOSTIC 09/22/2024 2:15 PM EDT Office Visit Hematology/Oncolog y Scenery Rosario [place] [address] [place] [address] Flaquita Wilson MD [address] [place] [address] 09/22/2024 2:45 PM EDT Nurse Only Hematology/Oncolog y Treatment, [place] [address] [place] [address] Rosario, Chair 11 Hem Onc Scenery [address] [place] [address] 11/16/2024 8:45 AM EDT Telemedicine Genetics HemOnc, [facility] [address] [place] [address] Nat Perez, [place] [address] [place] [address] 11/30/2024 9:00 AM EDT [facility] [place] 132 [facility] [place] [address] Silvia Holt CRNP [address] [place] [address] 02/09/2025 9:00 AM EDT Office Visit Family Medicine [address] [phone] Lashawn Mejia MD [address] [place] [address] [place] [address] Scheduled Procedures Name Priority Associated Diagnoses Date/Ti [...] 023, 12/14/2020, 10/21/2007 CKD PHOS USE SMARTSET 03533 12/26/20232 07/2022, 01/16/2016, 02/16/2015, Additional history exists HbA1c 12/26/2023 12/25/2022, 07/0 07/2021, 12/14/2020, Additional history exists COVID-19 Vaccine ( season) 2024 Influenza Vaccine (FLU shot) (#1) 2024 05/14/2010 TSH 03/21/2024 03/21/2023, 08/0 09/2022, 12/25/2022, Additional history exists GFR 02/14/2025 08/17/2024, 07/08, 06/07/2024, Additional history exists CKD HGB USE SMARTSET 20477 08/17/202508/17, 08/17/2024, 08/04/2024, Additional history exists Lipid [...] this encounter Medical Devices Implanted Type Area Farm Management Professor Device Identifier Shelf Expiration Date Model / Serial / Lot Port Implant W8f Poly Cath - [id number] Implanted:Qty : 1 on 09/05/2023 by Orville Zendejas MD at [facility] Right: Chest CR BARD : PERIPHERAL VASCULAR [id number] 06/05/2024 [id number] / / [id number] documented as of this encounter Visit Diagnoses Diagnosis Endometrial cancer (HCC)- Primary Malignant neoplasm of corpus uteri, except isthmus Endometrial cancer (HCC) Malignant neoplasm of corpus uteri, except isthmus documented in this encounter Advance Directives * Full Code (Latest Code Status on File) Date Activated Date Inactivated Comments 02/19/2022 1:10 PM 02/19/2022 8:22 PM This order r eflects the patients wishes and were consensually agreed upon. Question Answer Comments Discussion of Advance Directives occurred with: Not Discussed Care Teams Petroleum Refining Firer Relationship Specialty Start Date End Date Lashawn Mejia MD [address] [place] [address] [place] [address] PCP - General Family Medicine 09/22/20 documented as of this encounter
--- OUTSIDE RECORDS SUMMARY | 2024-10-01 03:30 | External Medical Summary | Summary of Care ---
Author Name Unknown Organization [facility] Address [address] [place] [address] Phone [phone] Care Team Providers Care Structural Steel Worker Name Role Phone Lashawn Mejia MD Primary Care Prov ider Reason for Referral * Precert (Diagnostic Medical) (Within 10 days (routine)) - Authorized Specialty Diagnoses / Procedures Referred By Contac t Referred To Contact Cardiac Studies Diagnoses Endometrial cancer (HCC) Procedures ECHO, COMPLETE (2D), TRANS-THORACIC Dinorah Garcia, [facility] [address] [place], [place] [address] Phone: tel: fax: Referral ID Status Reason Start Date Expiration Date V isits Requested Visits Authorized [id number] Authorized Precert 09/01/2024 1 1 Encounter Details Date Type Department Care Team (Late st Contact Info) Description 08/25/2024 Orders Only Hematology/Oncology [facility] [place] [address] [place] [address] [phone] Flaquita Wilson MD [address] [place] [address] Endometrial cancer (HCC)* Allergies Active Allergy Reactions [...] the rectum at bedtime. 12 Suppository 3 01/15/20 25 Active oxyCODONE-Acetamin ophen 5-325 MG Oral [...] required to determine if the biopsy if electronics parts sales representative. B. Skin, left vulva, biopsy: [...] 9:45 AM EST Pharmacy Pharmacy Hematology Oncology [address] [address] [facility] Hem/Onc [address] [place] [address] Endometrial cancer (HCC)* 08/26/2024 10:00 AM EST Pt Ed by Nurse Hematology/Oncolog y [place] [address] [place] [address] Nurse Rosario Hem Onc E[place] [address] [place] [address] 08/27/2024 1:15 PM EST Pharmacy Pharmacy Hematology Oncology [address] [address] [facility], [facility] Hem/Onc [address] [place] [address] 08/30/2024 1:30 PM EST Pharmacy Pharmacy Hematology Oncology [facility] [address] [place] [address] [facility], [facility] Hem/Onc [address] [place] [address] 09/01/2024 8:00 AM EST Office Visit Family Medicine [address] [place] [address] MD [address] [place] [address] [place] [phone] 09/01/2024 8:30 AM EST Laboratory Laboratory [address] [place] [phone] [place] [phone] 09/01/2024 10:00 AM EST Office Visit Palliative Medicine [facility] [address] [place] [address] MD [address] [place] [address] 09/02/2024 9:20 AM EST Telemedicine Neurology Catalino Ortiz [place] [address] [place] [address] Clif Mckeon MD [address] [place] [address] 09/15/2024 7:30 AM EDT Laboratory Laboratory [address] [place] [phone] [place] [address] 09/16/2024 2:41 PM EDT Hospital Encounter OR [facility], Operating Room, [facility] - 4th Floor [address] [place] [phone] Anabella Alberto, [address] [place] [address] 09/16/2024 2:41 PM EDT - 09/16/2024 3:11 PM EDT Surgery OR [facility], Operating Room, [facility] - 4th Floor [address] [place] [phone] Anabella Alberto, [address] [place] [address] SIGMOIDOSCOPY FLEXIBLE DIAGNOSTIC 09/22/2024 2:15 PM EDT Office Visit [facility]ematology[facility]olog y [facility] [place] [address] [place] [address] Flaquita Wilson MD [address] [place] [address] 09/22/2024 2:45 PM EDT Nurse Only Hematology/Oncolog y [facility] [place] [address] [place] [phone] Rosario, Chair 11 Hem Onc Scenery [address] [place] [address] 11/16/2024 8:45 AM EDT Telemedicine Genetics HemOnc, [facility] [address] [place] [address] Nat Perez, [place] [address] [facility] [place] [address] 11/30/2024 9:00 AM EDT [facility] [place] [address] [place] [phone] Silvia Holt CRNP [address] [place] [address] 02/09/2025 9:00 AM EDT Office Visit Family [address] [place] [phone] Lashawn Mejia MD [address] [place] [address] [place] [address] Scheduled Orders Name Type Priority Associated Diagnoses Orde r Schedule EKG EKG Routine Endometrial cancer (HCC) Expected: 08/26/2024 (Approximate), Expires: 09/22/2024 ECHO, COMPLETE (2D), TRANS-THORACIC Echocardiology Routine Endometrial cancer (HCC) Expected: 09/01/2024 (Approximate), Expires: 10/23/2024 Scheduled Procedures Name Priority Associated Diagnoses Date/Ti [...] 023, 12/14/2020, 10/21/2007 CKD PHOS USE SMARTSET 42314 12/26/2023/07/2022, 01/16/2016, 02/16/2015, Additional history exists HbA1c 12/26/2023 12/25/2022, 07/0 07/2021, 12/14/2020, Additional history exists COVID-19 Vaccine ( season) 2024 Influenza Vaccine (FLU shot) (#1) 2024 05/14/2010 TSH 03/21/2024 03/21/2023, 080 09/2022, 12/25/2022, Additional history exists GFR 02/14/2025 08/17/2024, 07/08, 06/07/2024, Additional history exists CKD HGB USE SMARTSET 35175 08/17/202508/17, 08/17/2024, 08/04/2024, Additional history exists Lipid [...] this encounter Medical Devices Implanted Type Area Hospital Unit Clerk Device Identifier Shelf Expiration Date Model / Serial / Lot Port Implant W8f Poly Cath - [id number] Implanted:Qty : 1 on 09/05/2023 by Orville Zendejas MD at OR [facility] Right: Chest CR BARD : PERIPHERAL VASCULAR [id number] 06/05/2024 [id number] / / [id number] documented as of this encounter Visit Diagnoses Diagnosis Endometrial cancer (HCC)- Primary Malignant neoplasm of corpus uteri, except isthmus Endometrial cancer (HCC)- Primary Malignant neoplasm of [...] Directives occurred with: Not Discussed Care Teams Structural Steel Worker Relationship Specialty Start Date End Date Lashawn Mejia MD [address] [place] [address] [place] [phone] PCP - General Family Medicine 09/22/20 documented as of this encounter
--- OUTSIDE RECORDS SUMMARY | 2024-10-01 03:30 | External Medical Summary | Summary of Care ---
Author Name Unknown Organization [facility] Address [address] [place] [address] Phone [phone] Care Team Providers Care Radon Inspector Name Role Phone Lashawn Mejia MD Primary Care Prov ider Encounter Details Date Type Department Care Team (Late st Contact Info) Description 08/25/2024 Orders Only Hematology/Oncology [facility] [place] [address] [place] [phone] Flaquita Wilson MD [address] [place] [address] Allergies Active Allergy Reactions Criticality Noted Date [...] required to determine if the biopsy if disability representative. B. 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 Not on file documented as of this encounter Plan of Treatment Upcoming Encounters Date Type Department Care Team (Latest Contact Info) Description 08/26/2024 9:30 AM EST Pt Ed by Nurse Hematology[facility]Oncolog y [facility] [address] [place] [phone] Rosario Nurse Hem Onc Scenery [address] [place] [address] 08/26/2024 11:00 AM EST Cardiac Studies Cardiac Studies, [facility] [address] [place] [address] 08/27/2024 1:15 PM EST Pharmacy Pharmacy Hematology Oncology [address] [address] [facility], [facility] Hem/Onc [address] [place] [address] 08/30/2024 1:30 PM EST Pharmacy Pharmacy Hematology Oncology [address] [address] [facility] Hem/Onc [address] [place] [address] 09/01/2024 8:00 AM EST Office Visit Family Medicine [address] [place] [address] MD [address] [place] [address] [place] [phone] 09/01/2024 8:30 AM EST Laboratory Laboratory [address] [place] [address] [place] [address] 09/01/2024 10:00 AM EST Office Visit Palliative Medicine [facility] [address] [place] [address] MD [address] [place], [place] [phone] 09/02/2024 9:20 AM EST Telemedicine Neurology Catalino Ortiz [place] [address] [place] [address] Clif Mckeon MD [address] [place], [place] [phone] 09/15/2024 7:30 AM EDT Laboratory Laboratory [address] [place] [address] [place] [address] 09/16/2024 2:41 PM EDT Hospital Encounter OR [facility], Operating Room, [facility] - 4th Floor 400 [place] [phone] Anabella Alberto DO [address] [place] [address] 09/16/2024 2:41 PM EDT - 09/16/2024 3:11 PM EDT Surgery OR [facility], Operating Room, [facility] - 4th Floor 400 [place] [phone] Anabella Alberto DO [address] [place] [address] SIGMOIDOSCOPY FLEXIBLE DIAGNOSTIC 09/22/2024 2:15 PM EDT Office Visit Hematology/Oncolog y [place] [address] [place] [address] Flaquita Wilson MD [address] [place] [address] 09/22/2024 2:45 PM EDT Nurse Only Hematology/Oncolog y Treatment, [place] [address] [place] [address] Rosario, Chair 11 Hem Onc Scenery [address] [place] [address] 11/16/2024 8:45 AM EDT Telemedicine Genetics HemOnc, [facility] [address] [place] [address] Nat Perez, [place] 1000 [address] [facility] [place] [address] 11/30/2024 9:00 AM EDT Office Visit Sleep Disorders Ctr [facility] [place] 132 [facility] [place] [phone] Silvia Holt CRNP 132 [facility] [place] [address] 02/09/2025 9:00 AM EDT Office Visit Family Medicine [address] [place] [phone] Lashawn Mejia MD [address] [place] [address] [place] [phone] Scheduled Procedures Name Priority Associated Diagnoses Date/Ti [...] 023, 12/14/2020, 10/21/2007 CKD PHOS USE SMARTSET 54108 12/26/202312/06, 01/16/2016, 02/16/2015, Additional history exists HbA1c 12/26/2023 12/25/2022, 07/0 07/2021, 12/14/2020, Additional history exists COVID-19 Vaccine ( season) 2024 Influenza Vaccine (FLU shot) (#1) 2024 05/14/2010 TSH 03/21/2024 03/21/2023, 08/0 09/2022, 12/25/2022, Additional history exists GFR 02/14/2025 08/17/2024, 07/08, 06/07/2024, Additional history exists CKD HGB USE SMARTSET 30714 08/17/202508/17, 08/17/2024, 08/04/2024, Additional history exists Lipid [...] this encounter Medical Devices Implanted Type Area Trout Farmer Device Identifier Shelf Expiration Date Model / Serial / Lot Port Implant W8f Poly Cath - [id number] Implanted:Qty : 1 on 09/05/2023 by Orville Zendejas MD at [facility] Right: Chest CR BARD : PERIPHERAL VASCULAR [id number] 06/05/2024 [id number] / / [id number] documented as of this encounter Advance Directives * Full Code (Latest Code Status on File) Date Activated Date Inactivated Comments 02/19/2022 1:10 PM 02/19/2022 8:22 PM This order r eflects the patients wishes and were consensually agreed upon. Question Answer Comments Discussion of Advance Directives occurred with: Not Discussed Care Teams Radon Inspector Relationship Specialty Start Date End Date Lashawn Mejia MD [address] [place] [address] [place] [phone] PCP - General Family Medicine 09/22/20 documented as of this encounter
--- OUTSIDE RECORDS SUMMARY | 2024-10-01 03:30 | External Medical Summary | Summary of Care ---
Author Name Unknown Organization [facility] Address [address] [place] [address] Phone [phone] Care Team Providers Care Adjudication Specialist Name Role Phone Lashawn Mejia MD Primary Care Prov ider Reason for Visit * Reason Onset Date Comments Medication Refill 08/26/2024 Encounter Details Date Type Department Care Team (Late st Contact Info) Description 08/26/2024 Refill Hematology/Oncology [facility] 200 [facility] [place] [address] Flaquita Gutiérrez MD 200 [place] [address] Endometrial cancer (HCC) Allergies Active Allergy Reactions [...] Pain, Moderate. 60 Tablet 08/26/19 25 Active oxyCODONE-Acetami nophen 5-325 MG [...] to determine if the biopsy if marketing representative. B. Skin, left vulva, biopsy: Mild [...] Telephone Encounter - Selin Brown LPN - 08/26/2024 10:00 AM ESTSigned Prescriptions: Disp Refills oxyCODONE-Acetaminophen 5-325 MG Oral Tabl*60 Tab*0 Sig: Take 1 Tablet by mouth every 4 hours as needed for Pain, Moderate.Authorizing Provider: FLAQUITA GUTIÉRREZ * Telephone Encounter - Selin Brown LPN - 08/26/2024 9:53 AM EST Spoke with the Pharmacist at [facility]. She verbally verified that the patient picked up the refill for the Oxycodone-Acetaminophen 5-325 mg on 08/17/2024 for the full amount, 30 pills. She is not requesting an authorization. * Telephone Encounter - Bouchra Webster RN - 08/26/2024 9:36 AM EST Patient requesting refill. Requesting more tablets as this rx does not last long with her needing to take it frequently. Changed rx to 60 tabs (this had been what she was previously prescribed as well) 30 tablets had been prescribed with last rx; however, pharmacy only filled 28. Tyler: can you please follow up with pharmacy- do they need prior auth to fill total rx? documented in this encounter Plan of Treatment Upcoming Encounters Date Type Department Care Team (Latest Contact Info) Description 08/27/2024 1:15 PM EST Pharmacy Pharmacy Hematology Oncology [address] [address] [facility] [place] Hem/Onc [address] [place] [address] 08/30/2024 1:30 PM EST Pharmacy Pharmacy Hematology Oncology [address] [address] [facility] [place] Hem/Onc [address] [place] [address] 09/01/2024 8:00 AM EST Office Visit Family Medicine [address] [phone] MD [address] [place] [address] [place] [address] 09/01/2024 8:30 AM EST Laboratory Laboratory [address] [place] [address] [place] [address] 09/01/2024 10:00 AM EST Office Visit [facility] Medicine [facility] [address] [place] [address] MD 400 [facility] [place] [address] 09/02/2024 9:20 AM EST Telemedicine Neurology [address] [place] [address] Clif Mckeon MD 100 [facility] [place], [place] [phone] 09/15/2024 7:30 AM EDT Laboratory Laboratory [address] [place] [phone] [facility], [address] [place] [address] 09/16/2024 2:41 PM EDT Hospital Encounter OR GL, Operating Room, [facility] - 4th Floor 400 [place] [phone] Anabella Alberto, [address] [place] [address] 09/16/2024 2:41 PM EDT - 09/16/2024 3:11 PM EDT Surgery OR [facility], Operating Room, [facility] - [facility] Floor 400 [facility] [place] [phone] Anabella Alberto DO [address] [place] [address] SIGMOIDOSCOPY FLEXIBLE DIAGNOSTIC 09/22/2024 2:15 PM EDT Office Visit Hematology/Oncolog y Emy Ponce [place] [address] [place] [address] Flaquita Gutiérrez MD [address] [place] [address] 09/22/2024 2:45 PM EDT Nurse Only Hematology/Oncolog y Treatment, [place] [address] [place] [address] Rosario, Chair 11 Hem Onc Scenery [address] [facility] [address] 11/16/2024 8:45 AM EDT Telemedicine Genetics HemOnc, [facility] [address] [place] [address] Nat Perez, [place] [address] [place] [address] 11/30/2024 9:00 AM EDT [facility] [address] [place] [phone] Silvia Holt CRNP [address] [place] [address] 02/09/2025 9:00 AM EDT Office Visit Family Medicine [address] [phone] Lashawn Mejia MD [address] [place] [address] [place] [address] Scheduled Procedures Name Priority Associated Diagnoses Date/Ti [...] 023, 12/14/2020, 10/21/2007 CKD PHOS USE SMARTSET 92973 12/26/202312/06, 01/16/2016, 02/16/2015, Additional history exists HbA1c 12/26/2023 12/25/2022, 07/0 07/2021, 12/14/2020, Additional history exists COVID-19 Vaccine ( season) 2024 Influenza Vaccine (FLU shot) (#1) 2024 05/14/2010 TSH 03/21/2024 03/21/2023, 08/0 09/2022, 12/25/2022, Additional history exists GFR 02/14/2025 08/17/2024, 07/08, 06/07/2024, Additional history exists CKD HGB USE SMARTSET 49554 08/17/202508/17, 08/17/2024, 08/04/2024, Additional history exists Lipid [...] this encounter Medical Devices Implanted Type Area Aluminum Hydroxide Process Operator Device Identifier Shelf Expiration Date Model / Serial / Lot Port Implant W8f Poly Cath - [id number] Implanted:Qty : 1 on 09/05/2023 by Orville Zendejas MD at OR [facility] Right: Chest CR BARD : PERIPHERAL VASCULAR [id number] 06/05/2024 [id number] / / [id number] documented as of this encounter Visit Diagnoses [...] Directives occurred with: Not Discussed Care Teams Adjudication Specialist Relationship Specialty Start Date End Date Lashawn Mejia MD [address] [place] [address] [place] [address] PCP - General Family Medicine 09/22/20 documented as of this encounter
--- OUTSIDE RECORDS SUMMARY | 2024-10-01 03:30 | External Medical Summary | Summary of Care ---
Author Name Unknown Organization [facility] Address [address] [place] [address] Phone [phone] Care Team Providers Care Mixing Machine Tender Name Role Phone Lashawn Mejia MD Primary Care Prov ider Reason for Visit * Reason Onset Date Comments Precert Future 08/17/2024 Keytruda/Lenvima Encounter Details Date Type Department Care Team (Late st Contact Info) Description 08/17/2024 Telephone Hematology/Oncology [facility] [address] [place] [phone] Flaquita Wilson MD [address] [facility] [place] [address] Precert Future (Keytruda/Lenvima) Allergies Active Allergy Reactions Criticality Noted Date Comments Gabapentin Neuro complications (Please comment),Tachycardia 02/06/2023 Hallucinations documented as of this encounter (statuses as of 08/24/2024) Medications Lisinopril 5 MG Oral Tablet (Prinivil)Indicat [...] as of this encounter (statuses as of 08/24/2024) Active Problems Problem Noted Date Diagnosed Date Encounter for antineoplastic chemotherapy 2023 Vulvar irritation 05/12/2023 Overview (05/12/2023): BIOPSY (05/06/2023) -- BENIGN A. Skin, right vulva, biopsy: Benign mature sebaceous glands with minimal inflammation. Negative for dysplasia and malignancy. Comment: The findings are non-specific, although sebaceous hyperplasia was considered. Clinical correlation is required to determine if the biopsy if customer response representative. B. Skin, left vulva, biopsy: Mild [...] as of this encounter (statuses as of 08/24/2024) Resolved Problems Problem Noted Date Diagnosed Date [...] as of this encounter (statuses as of 08/24/2024) Immunizations Name Administration Dates Next Due Seasonal [...] No 04/27/2024 Does the household have a [facility] source of income? 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 * Telephone Encounter - Chris Bazzi RN - 08/17/2024 12:19 PM EST Orders received, plan built and routed. Pt is going for 2nd opinion at [facility] on 08/24 -- need to follow up on office visit note to see if they are in agreeable with the current plan. Awaiting auth. [facility] regarding orders for Lenvima. -Chemo Consent: 08/17/24 [...] 9:45 AM EST Pharmacy Pharmacy Hematology Oncology [place] [address] [place] [address] [facility] [place] Hem/Onc [facility] [place] [address] 08/26/2024 10:00 AM EST Pt Ed by Nurse Hematology/Oncolog y State Amy Stark [address] [place] [address] Rosario Nurse Hem Onc Scenery [address] [place] [address] 09/01/2024 8:00 AM EST Office Visit Family Medicine [address] [place] [phone] MD [address] [place] [address] [place] [phone] 09/01/2024 8:30 AM EST Laboratory Laboratory [address] [place] [address] [place] [address] 09/01/2024 10:00 AM EST Office Visit Palliative Medicine [facility] [address] [place] [phone] MD 400 [place], [place] [phone] 09/02/2024 9:20 AM EST Telemedicine Neurology [address] [place] [address] Clif Mckeon MD 100 [place], [place] [phone] 09/15/2024 7:30 AM EDT Laboratory Laboratory [address] [place] [address] [place] [address] 09/16/2024 2:41 PM EDT Hospital Encounter OR [facility], Operating Room, [facility] - 4th Floor 400 [place] [phone] Anabella Alberto DO [address] [place] [address] 09/16/2024 2:41 PM EDT - 09/16/2024 3:11 PM EDT Surgery OR [facility], Operating Room, [facility] - 4th Floor 400 [facility] [place] [address] Anabella Alberto DO [address] [place] [address] SIGMOIDOSCOPY FLEXIBLE DIAGNOSTIC 09/22/2024 2:15 PM EDT Office Visit Hematology/Oncolog y [facility] [place] [address] [place], [place] [address] Flaquita Wilson MD [address] [place] [address] 09/22/2024 2:45 PM EDT Nurse Only Hematology/Oncolog y Treatment, [place] [address] [place] [address] Rosario, Chair 11 Hem Onc Scenery [address] [place] [address] 11/16/2024 8:45 AM EDT Telemedicine Genetics HemOn, [facility] [address] [place] [phone] Nat Perez, [place] [address] [facility] [place] [address] 11/30/2024 9:00 AM EDT Office Visit [facility] [address] [place] [phone] Silvia Holt CRNP [address] [place] [address] 02/09/2025 9:00 AM EDT Office Visit Family Medicine [address] [phone] Lashawn Mejia MD [address] [place] [address] [place] [address] Scheduled Procedures Name Priority Associated Diagnoses Date/Ti [...] 023, 12/14/2020, 10/21/2007 CKD PHOS USE SMARTSET 33982 12/26/202312/06, 01/16/2016, 02/16/2015, Additional history exists HbA1c 12/26/2023 12/25/2022, 07/0 07/2021, 12/14/2020, Additional history exists COVID-19 Vaccine ( season) 2024 Influenza Vaccine (FLU shot) (#1) 2024 05/14/2010 TSH 03/21/2024 03/21/2023, 08/0 09/2022, 12/25/2022, Additional history exists GFR 02/14/2025 08/17/2024, 07/08, 06/07/2024, Additional history exists CKD HGB USE SMARTSET 88857 08/17/202508/17, 08/17/2024, 08/04/2024, Additional history exists Lipid [...] this encounter Medical Devices Implanted Type Area Practice Administrator Device Identifier Shelf Expiration Date Model / Serial / Lot Port Implant W8f Poly Cath - [id number] Implanted:Qty : 1 on 09/05/2023 by Orville Zendejas MD at [facility] Right: Chest CR BARD : PERIPHERAL VASCULAR [id number] 06/05/2024 [id number] / / [id number] documented as of this encounter Advance Directives * Full Code (Latest Code Status on File) Date Activated Date Inactivated Comments 02/19/2022 1:10 PM 02/19/2022 8:22 PM This order r eflects the patients wishes and were consensually agreed upon. Question Answer Comments Discussion of Advance Directives occurred with: Not Discussed Care Teams Mixing Machine Tender Relationship Specialty Start Date End Date Lashawn Mejia MD [address] [place] [address] [place] [phone] PCP - General Family Medicine 09/22/20 documented as of this encounter
--- OUTSIDE RECORDS SUMMARY | 2024-10-01 03:31 | External Medical Summary ---
Author Name Unknown Address Unknown Organization [facility] [address] [place] [address] Laboratory Report Ordering Provider Test Date Status MEÑO QUAN 08/17/2024 08:33:31 Final Observation Date Value Abnormality Reference (Units ) Status SYNC LEUKOCYTES IN BLOOD BY AUTOMATED COUNT 08/17/2024 08:33:31 7.94 4.00-10.80 (K/uL) Final Segs 08/17/2024 08:33:31 84.1 Above high normal 40.0-75.0 (%) Final Lymphs % 08/17/2024 08:33:31 5.5 Below low normal 18.0-42.0 (%) Final Monos 08/17/2024 08:33:31 7.6 1.0-11.0 (%) Final Eosinophils 08/17/2024 08:33:31 2.5 0.0-6.0 (%) Final Basos 08/17/2024 08:33:31 0.3 0.0-2.0 (%) Final Absolute Segs 08/17/2024 08:33:31 6.68 1.80-7.70 (K/uL) Final Lymphs, absolute 08/17/2024 08:33:31 0.44 Below low normal 1.00-4.80 (K/ul) Final Monos, Abs 08/17/2024 08:33:31 0.60 0.00-1.10 (K/uL) Final Eos, Abs 08/17/2024 08:33:31 0.20 0.00-0.70 (K/uL) Final Basos, Abs 08/17/2024 08:33:31 0.02 0.00-0.20 (K/uL) Final Performing Location [facility] [address] [place] [address]
--- OUTSIDE RECORDS SUMMARY | 2024-10-01 03:31 | External Medical Summary ---
Author Name Unknown Address Unknown Organization K[facility] [place] [address] Laboratory Report Ordering Provider Test Date Status MEÑO QAUN 08/17/2024 08:33:31 Final Observation Date Value Abnormality Reference (Units ) Status WBC, Total 08/17/2024 08:33:31 7.94 4.00-10.8 0 (K/uL) Final RBC 08/17/2024 08:33:31 3.66 3.85-5.15 (M/uL) Final Hemoglobin 08/17/2024 08:33:31 9.5 Below low normal 12 .0-15.3 (g/dL) Final HCT 08/17/2024 08:33:31 31.7 Below low normal 36. 0-45.2 (%) Final MCV 08/17/2024 08:33:31 86.6 81.5-97.5 (fL) Final MCH 08/17/2024 08:33:31 26.0 27.0-34.0 (pg) Final MCHC 08/17/2024 08:33:31 30.0 32.0-36.0 (g/dL) Final RDW 08/17/2024 08:33:31 15.1 11.5-15.5 (%) Final Platelets 08/17/2024 08:33:31 402 Above high normal 14 0-400 (K/uL) Final MPV 08/17/2024 08:33:31 7.9 6.6-11.1 ( fL) Final Performing Location [facility] [place] [address]
--- OUTSIDE RECORDS SUMMARY | 2024-10-01 03:31 | External Medical Summary ---
Author Name Unknown Address Unknown Organization K[facility] [place] [facility] [address] [place] [address] Laboratory Report Ordering Provider Test Date Status BROCK BURNHAM 08/17/2024 12:08:59 Final Observation Date Value Abnormality Reference (Units ) Status COMMENT 08/17/2024 12:08:59 Rcvd request,slides @ [facility](msg. To SZ) 08/17/24 lmt Final COMMENT 08/17/2024 12:08:59 SZ ordered 08/17/24 lmt Final COMMENT 08/17/2024 12:08:59 Testing to be performed in house Final Performing Location [facility] [facility] [address] [place] [address]
--- OUTSIDE RECORDS SUMMARY | 2024-10-01 03:31 | External Medical Summary | Summary of Care ---
Author Name Unknown Organization [facility] Address [address] [place] [address] Phone [phone] Care Team Providers Care Powder Hand Name Role Phone Lashawn Mejia MD Primary Care Prov ider Encounter Details Date Type Department Care Team (Late st Contact Info) Description 08/18/2024 Orders Only Hematology/Oncology [facility] [place] [address] [place] [address] Flaquita Wilson MD [address] [place] [address] Allergies Active Allergy Reactions Criticality Noted Date [...] required to determine if the biopsy if home furnishings sales representative. B. 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 Not on file documented as of this encounter Plan of Treatment Upcoming Encounters Date Type Department Care Team (Latest Contact Info) Description 08/25/2024 9:45 AM EST Pharmacy Pharmacy Hematology Oncology [facility] [address] [place] [address] [facility] [place] Hem/Onc [address] [place] [address] 08/26/2024 10:00 AM EST Pt Ed by Nurse Hematology/Oncolog y Emy Ponce [place] [address] [place] [phone] Rosario Nurse Hem Onc [facility] 200 [place] [address] 09/01/2024 8:00 AM EST Office Visit Family Medicine [address] [address] MD [address] [place] [address] [place] [address] 09/01/2024 8:30 AM EST Laboratory Laboratory [address] [place] [address] [facility] [address] [place] [address] 09/01/2024 10:00 AM EST Office Visit Palliative Medicine Emy Ponce [place] 200 [facility] [place] [phone] MD 400 [place] [address] 09/02/2024 9:20 AM EST Telemedicine Neurology [address] [place] [phone] Clif Mckeon MD 100 [address] [facility] [place], [place] [phone] 09/15/2024 7:30 AM EDT Laboratory Laboratory [address] [place] [phone] [place], [address] [place] [address] 09/16/2024 2:41 PM EDT Hospital Encounter OR [facility], Operating Room, [facility] - 4th Floor 400 [place] [address] Anabella Alberto DO [address] [place] [address] 09/16/2024 2:41 PM EDT - 09/16/2024 3:11 PM EDT Surgery OR [facility], Operating Room, [facility] Floor 400 [facility] [place] [address] Anabella Alberto DO [address] [place] [address] SIGMOIDOSCOPY FLEXIBLE DIAGNOSTIC 09/22/2024 2:15 PM EDT Office Visit Hematology/Oncolog y State Amy Stark [address] [place], [place] [phone] Flaquita Wilson MD [address] [place] [address] 09/22/2024 2:45 PM EDT Nurse Only Hematology/Oncolog y Treatment, [place] [address] [place] [address] Rosario, Chair 11 Hem Onc Scenery [address] [place] [address] 11/16/2024 8:45 AM EDT Telemedicine Genetics HemOnc, [facility] [address] [place] [address] Nat Perez, [place] [address] [place] [address] 11/30/2024 9:00 AM EDT [facility] [place] [facility] [place] [phone] Silvia Holt CRNP [address] [place] [address] 02/09/2025 9:00 AM EDT Office Visit Family Medicine [address] [phone] Lashawn Mejia MD [address] [place] [address] [place] [address] Scheduled Procedures Name Priority Associated Diagnoses Date/Ti [...] 023, 12/14/2020, 10/21/2007 CKD PHOS USE SMARTSET 72852 12/26/202312/06, 01/16/2016, 02/16/2015, Additional history exists HbA1c 12/26/2023 12/25/2022, 070 07/2021, 12/14/2020, Additional history exists COVID-19 Vaccine ( season) 2024 Influenza Vaccine (FLU shot) (#1) 2024 05/14/2010 TSH 03/21/2024 03/21/2023, 080 09/2022, 12/25/2022, Additional history exists GFR 02/14/2025 08/17/2024, 07/08, 06/07/2024, Additional history exists CKD HGB USE SMARTSET 29964 08/17/202508/17, 08/17/2024, 08/04/2024, Additional history exists Lipid [...] this encounter Medical Devices Implanted Type Area Oil And Gas Recruiter Device Identifier Shelf Expiration Date Model / Serial / Lot Port Implant W8f Poly Cath - [id number] Implanted:Qty : 1 on 09/05/2023 by Orville Zendejas MD at OR [facility] Right: Chest CR BARD : PERIPHERAL VASCULAR [id number] 06/05/2024 [id number] / / [id number] documented as of this encounter Advance Directives * Full Code (Latest Code Status on File) Date Activated Date Inactivated Comments 02/19/2022 1:10 PM 02/19/2022 8:22 PM This order r eflects the patients wishes and were consensually agreed upon. Question Answer Comments Discussion of Advance Directives occurred with: Not Discussed Care Teams Powder Hand Relationship Specialty Start Date End Date Lashawn Mejia MD [address] [place] [address] [place] [phone] PCP - General Family Medicine 09/22/20 documented as of this encounter
--- OUTSIDE RECORDS SUMMARY | 2024-10-01 03:31 | External Medical Summary | Summary of Care ---
Author Name Unknown Organization [facility] Address [address] [place] [address] Phone [phone] Care Team Providers Care Developmental Behavioral Physician Name Role Phone Lashawn Mejia MD Primary Care Prov ider Reason for Visit * Reason Comments Medication Management Encounter Details Date Type Department Care Team (Late st Contact Info) Description 08/17/2024 1:00 PM [facility] Pharmacy Pharmacy Hematology Oncology [facility] [address] [place] [address] [facility] [place] Hem/Onc [address] [place] [address] Endometrial cancer (HCC)* Allergies Active Allergy Reactions Criticality Noted Date Comments Gabapentin Neuro complications (Please comment),Tachycardia 02/06/2023 Hallucinations documented as of this encounter (statuses as of 08/18/2024) Medications Lisinopril 5 MG Oral Tablet (Prinivil)Indicat [...] bedtime. 120 Tablet 3 07/29/19 25 Active oxyCODONE-Acetami nophen 5-325 MG Oral [...] 025 Disconti nued(Med ication List Clean Up) documented as of this encounter (statuses as of 08/18/2024) Active Problems Problem Noted Date Diagnosed Date Encounter for antineoplastic chemotherapy 2023 Vulvar irritation 05/12/2023 Overview (05/12/2023): BIOPSY (05/06/2023) -- BENIGN A. Skin, right vulva, biopsy: Benign mature sebaceous glands with minimal inflammation. Negative for dysplasia and malignancy. Comment: The findings are non-specific, although sebaceous hyperplasia was considered. Clinical correlation is required to determine if the biopsy if truck sales representative. B. Skin, left vulva, biopsy: [...] as of this encounter (statuses as of 08/18/2024) Resolved Problems Problem Noted Date Diagnosed Date [...] as of this encounter (statuses as of 08/18/2024) Immunizations Name Administration Dates Next Due Seasonal [...] this encounter Progress Notes * Dinorah Garcia, [facility] - 08/18/2024 8:19 AM EST MEDICATION THERAPY MANAGEMENT LENVATINIB INITIAL INTAKE NOTE Lissette CARY [id number] Patient Phone Numbers Communication: Chart review Treatment: Medication: Lenvatinib (Lenvima) Indication/Staging/Diagnosis Code: endometrial cancer / C54.1 Dose: 20mg daily Administration: +/- food Start Date: TBD Primary Webbing Seamer Pound Net/Oncologist: Dr. Wilson Additional Therapy: Pembrolizumab Supportive Care [...] been obtained? No, baseline EKG and ECHO will be ordered if [facility] agreeablewith treatment plan Has hepatitis B screening been completed? Yes [...] 08/17/24, pt has 2nd opinion appt at [facility] Anaya 08/24/24 MTM to follow up after 2nd opinion to confirm treatment plan and upload beacon plan Yes/no Date Action Taken Barnhart plan entered? Consent completed? yes 08/17/24 Intro/med rec completed? Precert completed? Test claim completed? Financial assistance needed? Physician signature? Rx released? Education completed? Follow up: 08/25 Dinorah Garcia, PharmD, BCOP Clinical Pharmacist, [facility] Oral Chemotherapy [facility] 08/18/2024, 8:32 AM Monitoring Parameters: Estimated CrCl Serum creatinine: [...] LVEF 09/29/20 55% Treatment Parameters Pertinent labs: Latest Reference Range & Units 08/17/24 08:33 Albumin 3.8 - 5.0 g/dL 3.8 AST 10 - 35 U/L 10 ALT 10 - 35 U/L 5 (L) Alkaline Phosphatase 35 - 130 U/L 84 Bilirubin, Total <=1.2 mg/dL 0.2 Latest Reference Range & Units 03/21/23 10:39 TSH 0.27 - 4.20 uIU/mL 0.37 Latest Reference Range & Units 07/01/24 10:11 Protein, Urine Negative mg/dL 100 ! Time Spent on Encounter: 16 - 20 minutes Encounter Group: Oncology Encounter Interventions Item Category: Oral Chemotherapy Lenvatinib Problem/Rationale: Indication: Needs additional medication therapy - Untreated condition, - Synergistic therapy Pharmacist Intervention(s): Drug Interaction Screen, Lab monitoring, and Referral review Magnitude of Intervention: Monitoring with direction (Level 1) documented in this encounter Plan of Treatment Upcoming Encounters Date Type Department Care Team (Latest Contact Info) Description 08/25/2024 9:45 AM EST Pharmacy Pharmacy Hematology Oncology [facility] [address] [place] [address] [facility] [place] Hem/Onc [address] [place] [address] 08/26/2024 10:00 AM EST Pt Ed by Nurse Hematology/Oncolog y Scenery [place] [address] [place] [phone] Nurse Rosario Hem Onc Scenery [address] [place] [address] 09/01/2024 8:00 AM EST Office Visit Family Medicine [address] [place] [phone] MD [address] [place] [address] [place] [address] 09/01/2024 8:30 AM EST Laboratory Laboratory [address] [place] [phone] [place] [address] 09/02/2024 9:20 AM EST Telemedicine Neurology Catalino Ortiz [place] [address] [place] [phone] Clif Mckeon MD [address] [facility] [place] [address] 09/15/2024 7:30 AM EDT Laboratory Laboratory [address] [place] [phone] [place] [address] 09/16/2024 2:41 PM EDT Hospital Encounter OR [facility], Operating Room, [facility] - 4th Floor [address] [place] [phone] Anabella Alberto DO [address] [place] [address] 09/16/2024 2:41 PM EDT - 09/16/2024 3:11 PM EDT Surgery OR GL, Operating Room, [facility] - 4th Floor [address] [place] [address] Anabella Alberto, [address] [place] [address] SIGMOIDOSCOPY FLEXIBLE DIAGNOSTIC 09/22/2024 2:15 PM EDT Office Visit Hematology/Oncolog y [facility] Rosario [place] [address] [place] [phone] Flaquita Wilson MD [address] [place] [address] 09/22/2024 2:45 PM EDT Nurse Only Hematology/Oncolog y Treatment, [place] [address] [place] [phone] Rosario, Chair 11 Hem Onc Scenery [address] [place] [address] 11/30/2024 9:00 AM EDT Office Visit Sleep Disorders Ctr Jett Belcher [place] [address] [place] [phone] Silvia Holt CRNP [address] [place] [address] 02/09/2025 9:00 AM EDT Office Visit Family [address] [place] [phone] Lashawn Mejia MD [address] [place] [address] [place] [address] Scheduled Procedures Name Priority Associated Diagnoses Date/Ti [...] 023, 12/14/2020, 10/21/2007 CKD PHOS USE SMARTSET 14023 12/26/202312/06, 01/16/2016, 02/16/2015, Additional history exists HbA1c 12/26/2023 12/25/2022, 07/0 07/2021, 12/14/2020, Additional history exists COVID-19 Vaccine ( season) 2024 Influenza Vaccine (FLU shot) (#1) 2024 05/14/2010 TSH 03/21/2024 03/21/2023, 08/0 09/2022, 12/25/2022, Additional history exists GFR 02/14/2025 08/17/2024, 07/08, 06/07/2024, Additional history exists CKD HGB USE SMARTSET 55152 08/17/202508/17, 08/17/2024, 08/04/2024, Additional history exists Lipid [...] this encounter Medical Devices Implanted Type Area Bottom Saw Operator Device Identifier Shelf Expiration Date Model / Serial / Lot Port Implant W8f Poly Cath - [id number] Implanted:Qty : 1 on 09/05/2023 by Orville Zendejas MD at [facility] Right: Chest CR BARD : PERIPHERAL VASCULAR [id number] 06/05/2024 [id number] / / [id number] documented as of this encounter Visit Diagnoses [...] Directives occurred with: Not Discussed Care Teams Developmental Behavioral Physician Relationship Specialty Start Date End Date Lashawn Mejia MD [address] [place] [address] [place] [address] PCP - General Family Medicine 09/22/20 documented as of this encounter
--- OUTSIDE RECORDS SUMMARY | 2024-10-01 03:31 | External Medical Summary ---
Author Name Unknown Address Unknown Organization K09:[facility] [place] [address] Laboratory Report Ordering Provider Test Date Status MEÑO QUAN 08/17/2024 08:33:31 Final Observation Date Value Abnormality Reference (Units ) Status BUN 08/17/2024 08:33:31 27 Above high normal 6-20 (mg/dL) Final Creatinine 08/17/2024 08:33:31 1.4 Above high normal 0.5-1.0 (mg/dL) Final Glomerular filtration rate/1.73 sq M.predicted [Volume Rate/Area] in Serum, Plasma or Blood by Creatinine-based formula (CKD-EPI) 08/17/2024 08:33:31 43 Below low normal >=60 (mL/min) Final eGFR is calculated based on the CKD-EPI 2020 equation. Sodium 08/17/2024 08:33:31 140 135-146 (m mol/L) Final Potassium 08/17/2024 08:33:31 4.2 3.5-5.1 (m mol/L) Final Cl 08/17/2024 08:33:31 105 98-107 (mm ol/L) Final CO2 08/17/2024 08:33:31 24 22-32 (mmo l/L) Final Anion gap 08/17/2024 08:33:31 11 7-15 (mmol /L) Final Glucose 08/17/2024 08:33:31 119 70-120 (mg /dL) Final Albumin 08/17/2024 08:33:31 3.8 3.8-5.0 (g /dL) Final AST (Aspartate aminotransferase) 08/17/2024 08:33:31 10 10-35 (U/L) Fin al Alk Phos 08/17/2024 08:33:31 84 35-130 (U/ L) Final Bilirubin, Total 08/17/2024 08:33:31 0.2 <=1 .2 (mg/dL) Final Calcium 08/17/2024 08:33:31 9.4 8.4-10.2 ( mg/dL) Final Protein 08/17/2024 08:33:31 7.3 6.0-8.3 (g /dL) Final ALT (Alanine aminotransferase) 08/17/2024 08:33:31 5 Below low normal 10-35 (U/L) Final Performing Location [facility]- 02 - [address] [place] [address]
--- OUTSIDE RECORDS SUMMARY | 2024-10-01 03:31 | External Medical Summary | Summary of Care ---
Author Name Unknown Organization [facility] Address [address] [place] [address] Phone [phone] Care Team Providers Care Jordan Man Name Role Phone Lashawn Mejia MD Primary Care Prov ider Reason for Visit * Reason Onset Date Comments Precert Future 08/17/2024 Keytruda/Lenvima Encounter Details Date Type Department Care Team (Late st Contact Info) Description 08/17/2024 Telephone Hematology/Oncology [facility] [address] [place] [phone] Flaquita Wilson MD [address] [place] [facility] [address] Precert Future (Keytruda/Lenvima) Allergies Active Allergy Reactions Criticality Noted Date Comments Gabapentin Neuro complications (Please comment),Tachycardia 02/06/2023 Hallucinations documented as of this encounter (statuses as of 08/17/2024) Medications Lisinopril 5 MG Oral Tablet (Prinivil)Indicati ons:HTN, goal below 140/90 Take by mouth 1 Tablet in the morning. 90 Tablet 1 12/19/19 23 Active dexAMETHasone 4 MG Oral TabletIndications: Endometrial cancer (HCC) Take 5 tab (20 mg) 12 and 6 hours before chemo 60 Tablet 08/26/19 24 Active Additional Information Patient not taking.Reported on 07/13/2024 Ondansetron HCl 8 MG Oral TabletIndications: Endometrial [...] as of this encounter (statuses as of 08/17/2024) Active Problems Problem Noted Date Diagnosed Date Encounter for antineoplastic chemotherapy 2023 Vulvar irritation 05/12/2023 Overview (05/12/2023): BIOPSY (05/06/2023) -- BENIGN A. Skin, right vulva, biopsy: Benign mature sebaceous glands with minimal inflammation. Negative for dysplasia and malignancy. Comment: The findings are non-specific, although sebaceous hyperplasia was considered. Clinical correlation is required to determine if the biopsy if sales representative girls' apparel. B. Skin, left vulva, biopsy: Mild perifollicular [...] as of this encounter (statuses as of 08/17/2024) Resolved Problems Problem Noted Date Diagnosed Date [...] as of this encounter (statuses as of 08/17/2024) Immunizations Name Administration Dates Next Due Seasonal [...] agreeable with the current plan. Awaiting auth. [facility]- fyi regarding orders for Lenvima. -Chemo [...] y State Amy Stark [address] [place] [phone] Nurse Rosario Hem Onc Scenery [address] [place] [address] 09/01/2024 8:00 AM EST Office Visit Family Medicine [address] [place] [phone] MD [address] [place] [address] [place] [phone] 09/01/2024 8:30 AM EST Laboratory Laboratory [address] [place] [phone] [place] [address] 09/02/2024 9:20 AM EST Telemedicine Neurology Titi [address]iz Dr [address] [place] [phone] Clif Mckeon MD [address] [place] [facility] [place] [id number] 09/15/2024 7:30 AM EDT Laboratory Laboratory [address] [place] [phone] [place] [address] 09/16/2024 2:41 PM EDT Hospital Encounter OR [facility], Operating Room, [facility] - 4th Floor [address] [facility] [place] [phone] Anabella Alberto DO [address] [place] [address] 09/16/2024 2:41 PM EDT - 09/16/2024 3:11 PM EDT Surgery OR [facility], Operating Room, [facility] - 4th Floor 400 [facility] [place] [phone] Anabella Alberto DO [address] [place] [address] SIGMOIDOSCOPY FLEXIBLE DIAGNOSTIC 09/22/2024 2:15 PM EDT Office Visit Hematology/Oncolog y Scenery Rosario [place] [address] [place] [phone] Flaquita Wilson MD [address] [place] [address] 09/22/2024 2:45 PM EDT Nurse Only Hematology/Oncolog y Treatment, [place] [address] [place] [phone] Rosario, Chair 11 Hem Onc Scenery [address] [place] [address] 11/30/2024 9:00 AM EDT Office Visit Sleep Disorders Ctr [facility] [address] [facility] [place] [phone] Silvia Holt CRNP [address] [facility] [place] [address] 02/09/2025 9:00 AM EDT Office Visit Family Medicine [address] [phone] Lashawn Mejia MD [address] [place] [address] [place] [id number] Scheduled Procedures Name Priority Associated Diagnoses Date/Ti [...] 023, 12/14/2020, 10/21/2007 CKD PHOS USE SMARTSET 68156 12/26/202312/06, 01/16/2016, 02/16/2015, Additional history exists HbA1c 12/26/2023 12/25/2022, 07/0 07/2021, 12/14/2020, Additional history exists COVID-19 Vaccine ( season) 2024 Influenza Vaccine (FLU shot) (#1) 2024 05/14/2010 TSH 03/21/2024 03/21/2023, 08/0 09/2022, 12/25/2022, Additional history exists GFR 02/14/2025 08/17/2024, 07/08, 06/07/2024, Additional history exists CKD HGB USE SMARTSET 08703 08/17/202508/17, 08/17/2024, 08/04/2024, Additional history exists Lipid [...] this encounter Medical Devices Implanted Type Area Conflict Resolution Professional Device Identifier Shelf Expiration Date Model / Serial / Lot Port Implant W8f Poly Cath - [id number] Implanted:Qty : 1 on 09/05/2023 by Orville Zendejas MD at OR [facility] Right: Chest CR BARD : PERIPHERAL VASCULAR [id number] 06/05/2024 [id number] / / [id number] documented as of this encounter Advance Directives * Full Code (Latest Code Status on File) Date Activated Date Inactivated Comments 02/19/2022 1:10 PM 02/19/2022 8:22 PM This order r eflects the patients wishes and were consensually agreed upon. Question Answer Comments Discussion of Advance Directives occurred with: Not Discussed Care Teams Jordan Man Relationship Specialty Start Date End Date Lashawn Mejia MD [address] [place] [address] [place] [phone] PCP - General Family Medicine 09/22/20 documented as of this encounter
--- OUTSIDE RECORDS SUMMARY | 2024-10-01 03:31 | External Medical Summary | Summary of Care ---
Author Name Unknown Organization [facility] Address [address] [place] [address] Phone [phone] Care Team Providers Care Polisher Numeral Name Role Phone Lashawn Mejia MD Primary Care Prov ider Reason for Visit * Reason Comments Outpatient Testing Encounter Details Date Type Department Care Team (Late st Contact Info) Description 08/17/2024 8:30 AM EST Laboratory Laboratory Sc[place] [address] [place] [phone] [place], Lab Scenery [address] [place] [address] Endometrial cancer (HCC) Allergies Active Allergy Reactions [...] bedtime. 120 Tablet 3 07/29/19 25 Active documented as of this encounter [...] required to determine if the biopsy if airport representative. B. 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 Not on file Not on file documented as of this encounter Plan of Treatment Upcoming Encounters Date Type Department Care Team (Latest Contact Info) Description 09/01/2024 8:00 AM EST Office Visit Family Medicine [address] [place] [phone] MD [address] [place] [address] [place] [phone] 09/01/2024 8:30 AM EST Laboratory Laboratory [address] [place] [phone] [place] [address] 09/02/2024 9:20 AM EST Telemedicine Neurology Titi [address] [place] [phone] Clif Mckeon MD [address] [facility] [place] [address] 09/15/2024 7:30 AM EDT Laboratory Laboratory [address] [place] [phone] [place] [address] 09/16/2024 2:41 PM EDT Hospital Encounter OR [facility], Operating Room, [facility] - 4th Floor [address] [place] [address] [place] [phone] Anabella Alberto DO [address] [place] [address] 09/16/2024 2:41 PM EDT - 09/16/2024 3:11 PM EDT Surgery OR [facility], Operating Room, [facility] - 4th Floor [address] [place] [phone] Anabella Alberto DO [address] [place] [address] SIGMOIDOSCOPY FLEXIBLE DIAGNOSTIC 09/22/2024 2:15 PM EDT Office Visit [facility] [facility] [place] [address] [place] [phone] Flaquita Wilson MD [address] [place] [address] 09/22/2024 2:45 PM EDT Nurse Only Hematology/Oncolog y Treatment, [place] [address] [place] [phone] Rosario, Chair 11 Hem Onc Scenery [address] [place] [address] 11/30/2024 9:00 AM EDT Office Visit Sleep Disorders Ctr [facility] [place] [address] [place] [phone] Silvia Holt CRNP [address] [place] [address] 02/09/2025 9:00 AM EDT Office Visit Family Medicine [address] [place] [phone] Lashawn Mejia MD [address] [place] [address] [place] [address] Scheduled Procedures Name Priority Associated Diagnoses Date/Ti [...] 023, 12/14/2020, 10/21/2007 CKD PHOS USE SMARTSET 22479 12/26/202[address] 07/2022, 01/16/2016, 02/16/2015, Additional history exists HbA1c 12/26/2023 12/25/2022, 07/0 07/2021, 12/14/2020, Additional history exists COVID-19 Vaccine ( season) 2024 Influenza Vaccine (FLU shot) (#1) 2024 05/14/2010 TSH 03/21/2024 03/21/2023, 08/0 09/2022, 12/25/2022, Additional history exists GFR 02/14/2025 08/17/2024, 2 03/2025, 06/07/2024, Additional history exists CKD HGB USE SMARTSET 85187 08/17/202508/17, 08/17/2024, 08/04/2024, Additional history exists Lipid [...] this encounter Medical Devices Implanted Type Area Industrial Engineering Device Identifier Shelf Expiration Date Model / Serial / Lot Port Implant W8f Poly Cath - [id number] Implanted:Qty : 1 on 09/05/2023 by Orville Zendejas MD at OR [facility] Right: Chest CR BARD : PERIPHERAL VASCULAR [id number] 06/05/2024 [id number] / / [id number] documented as of this encounter Procedures Procedure Name Priority Date/Time Associated Diagnosis Comments DIFFERENTIAL, AUTOMATED STAT 08/17/2024 8:33 AM EST Endometrial cancer (HCC) COMPREHENSIVE METABOLIC PANEL STAT 08/17/2024 8:33 AM EST Endometrial cancer (HCC) CBC STAT 08/17/2024 8:33 AM EST Endometrial cancer (HCC) CBC STAT 08/17/2024 8:33 AM EST Endometrial cancer (HCC) documented in this encounter Results * (ABNORMAL) DIFFERENTIAL, AUTOMATED (08/17/2024 8:33 AM EST) WBC 7.94 4.00 - 10.80 K/uL 08/17/2024 8:39 AM EST [facility] 56-02 Neutrophils % 84.1(H) 40.0 - 75.0 % 08/17/2024 8:39 AM EST [facility] 56-02 Lymphocytes % 5.5(L) 18.0 - 42.0 % 08/17/2024 8:39 AM EST [facility] 56-02 Monocytes % 7.6 1.0 - 11.0 % 08/17/2024 8:39 AM EST [facility] 56-02 Eosinophils % 2.5 0.0 - 6.0 % 08/17/2024 8:39 AM EST [facility] 56 Basophils % 0.3 0.0 - 2.0 % 08/17/2024 8:39 AM [facility] 56- Absolute Neutrophils 6.68 1.80 - 7.70 K/uL 08/17/2024 8:39 AM [facility] 56 Absolute Lymphocytes 0.44(L) 1.00 - 4.80 K/ul 08/17/2024 8:39 AM [facility] 56 Absolute Monocytes 0.60 0.00 - 1.10 K/uL 08/17/2024 8:39 AM [facility] 56 Absolute Eosinophils 0.20 0.00 - 0.70 K/uL 08/17/2024 8:39 AM [facility] 56- Absolute Basophils 0.02 0.00 - 0.20 K/uL 08/17/2024 8:39 AM [facility] 56 Blood Venous blood specimen / Unknown Venipuncture / Unknown 08/17/2024 8:33 AM EST 08/17/2024 8:33 AM EST us Lali MCKEON LAB BLOOD ORDERABLES Nemo brito Result [facility] 56 [address] [place] [address] * (ABNORMAL) CBC (08/17/2024 8:33 AM EST) WBC 7.94 4.00 - 10.80 K/uL 08/17/2024 8:39 AM [facility] 56 RBC 3.66 3.85 - 5.15 M/uL 08/17/2024 8:39 AM [facility] 56 HGB 9.5(L) 12.0 - 15.3 g/dL 08/17/2024 8:39 AM [facility] 56 HCT 31.7(L) 36.0 - 45.2 % 08/17/2024 8:39 AM [facility] 56 MCV 86.6 81.5 - 97.5 fL 08/17/2024 8:39 AM [facility] 56 MCH 26.0 27.0 - 34.0 pg 08/17/2024 8:39 AM [facility] MCHC 30.0 32.0 - 36.0 g/dL 08/17/2024 8:39 AM [facility] 56 RDW 15.1 11.5 - 15.5 % 08/17/2024 8:39 AM [facility] 56 PLT 402(H) 140 - 400 K/uL 08/17/2024 8:39 AM [facility] 56 MPV 7.9 6.6 - 11.1 fL 08/17/2024 8:39 AM [facility] 56 Blood Venous blood specimen / Unknown Venipuncture / Unknown 08/17/2024 8:33 AM EST 08/17/2024 8:33 AM EST us Lali MCKEON LAB BLOOD ORDERABLES Nemo brito Result Performing Organization Address City/State/[facility] Co de Phone Number [facility] [address] [place] [address] * (ABNORMAL) COMPREHENSIVE METABOLIC PANEL (08/17/2024 8:33 AM EST) BUN 27(H) 6 - 20 mg/dL 08/17/2024 8:59 AM [facility] CREATININE 1.4(H) 0.5 - 1.0 mg/dL 08/17/2024 8:59 AM [facility] 56 EGFR 43(L) >=60 mL/min 08/17/2024 8:59 AM [facility] 56 Comment:eGFR is calculated b ased on the CKD-EPI 2020 equation. SODIUM 140 135 - 146 mmol/L 08/17/2024 8:59 AM [facility] 56 POTASSIUM 4.2 3.5 - 5.1 mmol/L 08/17/2024 8:59 AM [facility] 56 CHLORIDE 105 98 - 107 mmol/L 08/17/2024 8:59 AM [facility] 56 CO2 24 22 - 32 mmol/L 08/17/2024 8:59 AM [facility] 56 ANION GAP 11 7 - 15 mmol/L 08/17/2024 8:59 AM [facility] 56- GLUCOSE 119 70 - 120 mg/dL 08/17/2024 8:59 AM [facility] 56- Albumin 3.8 3.8 - 5.0 g/dL 08/17/2024 8:59 AM EST [facility] 56- AST 10 10 - 35 U/L 08/17/2024 8:59 AM [facility] 56- Alkaline Phosphatase 84 35 - 130 U/L 08/17/2024 8:59 AM [facility] 56- Bilirubin, Total 0.2 <=1.2 mg/dL 08/17/2024 8:59 AM [facility] 56- CALCIUM 9.4 8.4 - 10.2 mg/dL 08/17/2024 8:59 AM [facility] 56- Protein 7.3 6.0 - 8.3 g/dL 08/17/2024 8:59 AM [facility] 56- ALT 5(L) 10 - 35 U/L 08/17/2024 8:59 AM [facility] 56- Blood Venous blood specimen / Unknown Venipuncture / Unknown 08/17/2024 8:33 AM EST 08/17/2024 8:33 AM EST Lali MCKEON LAB BLOOD ORDERABLES Nemo l Result [facility] 56- [address] [place] [address] documented in this encounter Visit Diagnoses Diagnosis [...] Directives occurred with: Not Discussed Care Teams Polisher Numeral Relationship Specialty Start Date End Date Lashawn Mejia MD [address] [place] [address] [place] [address] PCP - General Family Medicine 09/22/20 documented as of this encounter
--- OUTSIDE RECORDS SUMMARY | 2024-10-01 03:31 | External Medical Summary | Summary of Care ---
Author Name Unknown Organization [facility] Address [address] [place] [address] Phone [phone] Care Team Providers Care Medical Data Analyst Name Role Phone Lashawn Mejia MD Primary Care Prov ider Reason for Visit * Reason Onset Date Comments Order Request 08/17/2024 NGS, PDL1 Encounter Details Date Type Department Care Team (Late st Contact Info) Description 08/17/2024 Telephone Hematology/Oncology [facility] [address] [place] [phone] Flaquita Wilson MD [address] [place] [address] Order Request (NGS, PDL1) Allergies Active Allergy Reactions Criticality Noted Date [...] required to determine if the biopsy if data entry representative. B. 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 Wilson, would like NGS and PDL1 added to Cytology from 08/06/23 [id number]. Order placed, message sent to Path. documented in this encounter Plan of Treatment Upcoming Encounters Date Type Department Care Team (Latest Contact Info) Description 08/26/2024 10:00 AM EST Pt Ed by Nurse Hematology/Oncolog y [facility] Amy Ponce [address] [place] [phone] Rosario Nurse Hem Onc Scenery [address] [place] [address] 09/01/2024 8:00 AM EST Office Visit Family Medicine [address] [place] [address] MD [address] [place] [address] [place] [phone] 09/01/2024 8:30 AM EST Laboratory Laboratory [address] [place] [phone] [address] [place] [address] 09/02/2024 9:20 AM EST Telemedicine Neurology Catalino Ortiz [place] [address] [place] [phone] Clif Mckeon MD 100 [facility] [place] [id number] 09/15/2024 7:30 AM EDT Laboratory Laboratory [address] [place] [address] [place] [address] 09/16/2024 2:41 PM EDT Hospital Encounter OR [facility], Operating Room, [facility] Floor [address] [place] [phone] Anabella Alberto DO [address] [place] [address] 09/16/2024 2:41 PM EDT - 09/16/2024 3:11 PM EDT Surgery OR [facility], Operating Room, [facility] Floor [address] [place] [phone] Anabella Alberto DO [address] [place] [address] SIGMOIDOSCOPY FLEXIBLE DIAGNOSTIC 09/22/2024 2:15 PM EDT Office Visit Hematology/Oncolog y [place] [facility] Amy Ponce [address] [place] [phone] Flaquita Wilson MD [address] [place] [address] 09/22/2024 2:45 PM EDT Nurse Only Hematology/Oncolog y Treatment, [place] [address] [place] [address] Rosario, Chair 11 Hem Onc Scenery [address] [facility] [address] 11/30/2024 9:00 AM EDT Office Visit Sleep Disorders Ctr Jett Belcher [place] [address] [place] [phone] Silvia Holt CRNP [address] [place] [address] 02/09/2025 9:00 AM EDT Office Visit Family Medicine [address] [phone] Lashawn Mejia MD [address] [place] [address] [place] [address] Scheduled Procedures Name Priority Associated Diagnoses Date/Ti [...] 023, 12/14/2020, 10/21/2007 CKD PHOS USE SMARTSET 89804 12/26/202312/06, 01/16/2016, 02/16/2015, Additional history exists HbA1c 12/26/2023 12/25/2022, 07/0 07/2021, 12/14/2020, Additional history exists COVID-19 Vaccine ( season) 2024 Influenza Vaccine (FLU shot) (#1) 2024 05/14/2010 TSH 03/21/2024 03/21/2023, 080 09/2022, 12/25/2022, Additional history exists GFR 02/14/2025 08/17/2024, 07/08, 06/07/2024, Additional history exists CKD HGB USE SMARTSET 99527 08/17/202508/17, 08/17/2024, 08/04/2024, Additional history exists Lipid [...] this encounter Medical Devices Implanted Type Area Technology Analyst Device Identifier Shelf Expiration Date Model / Serial / Lot Port Implant W8f Poly Cath - [id number] Implanted:Qty : 1 on 09/05/2023 by Orville Zendejas MD at OR [facility] Right: Chest CR BARD : PERIPHERAL VASCULAR [id number] 06/05/2024 [id number] / / [id number] documented as of this encounter Procedures Procedure Name Priority Date/Time Associated Diagnosis Comments ANATOMIC PATHOLOGY (BM/SURGICAL/CYTOLO GY) ADD ON REQUEST Routine 08/17/2024 12:08 PM EST Endometrial cancer (HCC) documented in this encounter Results * ANATOMIC PATHOLOGY (BM/SURGICAL/CYTOLOGY) ADD ON REQUEST (08/17/2024 12:08 PM EST) 08/17/2024 12:0 8 PM EST 08/17/2024 12:08 PM EST Narrative [facility] - 08/17/2024 2:14 PM EST Rcvd request,slides @ [facility](msg. To SZ) 08/17/24 lmt SZ ordered 08/17/24 lmt Testing to be performed in house Flaquita Wilson MD LAB BLOOD ORDERABLES Fin al Result [facility] [address] [facility] [address] documented in this encounter Visit Diagnoses Diagnosis [...] Directives occurred with: Not Discussed Care Teams Medical Data Analyst Relationship Specialty Start Date End Date Lashawn Mejia MD [address] [place] [address] [place] [address] PCP - General Family Medicine 09/22/20 documented as of this encounter
--- OUTSIDE RECORDS SUMMARY | 2024-10-01 03:31 | External Medical Summary | Summary of Care ---
Author Name Unknown Organization [facility] Address [address] [place] [address] Phone [phone] Care Team Providers Care Preschool Teacher Name Role Phone Lashawn Mejia MD Primary Care Prov ider Reason for Visit * Reason Onset Date Comments Appointment 08/06/2024 RAIL SIGNAL MECHANIC/ONCOLOGY Encounter Details Date Type Department Care Team (Late st Contact Info) Description 08/06/2024 Telephone Family Medicine [address] [phone] Lashawn Mejia MD [address] [place] [address] Appointment (RAIL SIGNAL MECHANIC/ONCOLOGY) Allergies Active Allergy Reactions Criticality Noted Date Comments Gabapentin Neuro complications (Please comment),Tachycardia 02/06/2023 Hallucinations documented as of this encounter (statuses as of 08/06/2024) Medications Lisinopril 5 MG Oral Tablet (Prinivil)Indicati [...] as of this encounter (statuses as of 08/06/2024) Active Problems Problem Noted Date Diagnosed Date [...] as of this encounter (statuses as of 08/06/2024) Resolved Problems Problem Noted Date Diagnosed Date [...] as of this encounter (statuses as of 08/06/2024) Immunizations Name Administration Dates Next Due Seasonal [...] ages 0-17 years) Not on file 04/27/2024 Comments No Sex and Gender Information [...] encounter Miscellaneous Notes * Telephone Encounter - Tono Diop OSA - 08/06/2024 11:06 AM EST Pt is scheduled for an appointment on Friday08/24/24 at 1:[address] Maryan Burrows. The address is: [facility] [address], [address] (FIRST FLOOR) [place] [address] PHONE # [phone] FAX #[phone] i faxed referral and records. documented in this encounter Plan of Treatment Upcoming Encounters Date Type Department Care Team (Latest Contact Info) Description 08/12/2024 8:30 AM EST Imaging Radiology [facility] [address] [facility], [place] [address] [place] [phone] 08/18/2024 8:00 AM EST Office Visit Family Medicine [address] [place] [phone] MD [address] [place] [address] [place] [address] 08/18/2024 8:30 AM EST Laboratory Laboratory [address] [place] [address] [place] [address] 09/02/2024 9:20 AM EST Telemedicine Neurology Titi Ortiz [address] [place] [phone] Clif Mckeon MD 100 [address] [facility] [place] [id number] 09/15/2024 7:30 AM EDT Laboratory Laboratory [address] [place] [phone] [place], Lab [address] [place] [address] 09/16/2024 2:41 PM EDT Hospital Encounter OR [facility], Operating Room, [facility] - 4th Floor [address] [place] [phone] Anabella Alberto, [address] [place] [address] 09/16/2024 2:41 PM EDT - 09/16/2024 3:11 PM EDT Surgery OR [facility], Operating Room, [facility] - 4th Floor [address] [place] [phone] Anabella Alberto DO [address] [place] [address] SIGMOIDOSCOPY FLEXIBLE DIAGNOSTIC 09/22/2024 2:15 PM EDT Office Visit Hematology/Oncolog y [facility] Rosario [place] [address] [place] [phone] Flaquita Wilson MD [address] [place] [address] 09/22/2024 2:45 PM EDT Nurse Only Hematology/Oncolog y Treatment, [place] [address] [place] [phone] Rosario, Chair 11 Hem Onc Scenery [address] [place] [address] 11/30/2024 9:00 AM EDT Office Visit Sleep Disorders Ctr Jett Belcher [place] [address] [place] [phone] Silvia Holt CRNP [address] [place] [address] 02/09/2025 9:00 AM EDT Office Visit Family Medicine [address] [place] [phone] Lashawn Mejia MD [address] [place] [address] [place] [address] Scheduled Procedures Name Priority Associated Diagnoses Date/Ti [...] 023, 12/14/2020, 10/21/2007 CKD PHOS USE SMARTSET 22029 12/26/20232 07/2022, 01/16/2016, 02/16/2015, Additional history exists HbA1c 12/26/2023 12/25/2022, 07/0 07/2021, 12/14/2020, Additional history exists COVID-19 Vaccine ( season) 2024 Influenza Vaccine (FLU shot) (#1) 2024 05/14/2010 TSH 03/21/2024 03/21/2023, 08/0 09/2022, 12/25/2022, Additional history exists GFR 02/01/2025 08/04/2024, 08/2023, 04/09/2024, Additional history exists CKD HGB USE SMARTSET 32841 08/04/202508/04, 08/04/2024, 06/07/2024, Additional history exists Lipid Panel 01/04/2027 01/04/2022, [...] this encounter Medical Devices Implanted Type Area Air Brush Decorator Device Identifier Shelf Expiration Date Model / Serial / Lot Port Implant W8f Poly Cath - [id number] Implanted:Qty : 1 on 09/05/2023 by Orville Zendejas MD at OR [facility] Right: Chest CR BARD : PERIPHERAL VASCULAR [id number] 06/05/2024 [id number] / / [id number] documented as of this encounter Advance Directives * Full Code (Latest Code Status on File) Date Activated Date Inactivated Comments 02/19/2022 1:10 PM 02/19/2022 8:22 PM This order r eflects the patients wishes and were consensually agreed upon. Question Answer Comments Discussion of Advance Directives occurred with: Not Discussed Care Teams Preschool Teacher Relationship Specialty Start Date End Date Lashawn Mejia MD [address] [place] [address] [place] [phone] PCP - General Family Medicine 09/22/20 documented as of this encounter
--- OUTSIDE RECORDS SUMMARY | 2024-10-01 03:31 | External Medical Summary | Summary of Care ---
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 B. 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 Not on file documented as of this encounter Plan of Treatment Upcoming Encounters Date Type Department Care Team (Latest Contact Info) Description 08/26/2024 10:00 AM EST Pt Ed by Nurse Hematology/Oncolog y [facility] Rosario [place] [address] [place] [phone] Nurse Rosario Hem Onc Scenery [address] [place] [address] 09/01/2024 8:00 AM EST Office Visit Family Medicine [address] [place] [address] MD [address] [place] [address] [place] [address] 09/01/2024 8:30 AM EST Laboratory Laboratory [address] [place] [phone] [place], Lab [address] [place] [address] 09/02/2024 9:20 AM EST Telemedicine Neurology Titi Ortiz [address] [place] [phone] Clif Mckeon MD 100 [address] [facility] [place] [address] 09/15/2024 7:30 AM EDT Laboratory Laboratory [address] [place] [phone] [place] [address] 09/16/2024 2:41 PM EDT Hospital Encounter OR [facility], Operating Room, [facility] - 4th Floor [address] [place] [phone] Anabella Alberto, [address] [place] [address] 09/16/2024 2:41 PM EDT - 09/16/2024 3:11 PM EDT Surgery OR [facility], Operating Room, [facility] - 4th Floor [address] [place] [phone] Anabella Alberto, [address] [place] [address] SIGMOIDOSCOPY FLEXIBLE DIAGNOSTIC 09/22/2024 2:15 PM EDT Office Visit Hematology/Oncolog y Scenery [place] [address] [place] [phone] Flaquita Wilson MD [address] [place] [address] 09/22/2024 2:45 PM EDT Nurse Only Hematology/Oncolog y Treatment, [place] [address] [place] [address] Rosario, Chair 11 Hem Onc Scenery [address] [place] [address] 11/30/2024 9:00 AM EDT Office Visit Sleep Disorders Ctr Jett Belcher [place] [address] [place] [phone] Silvia Holt CRNP [address] [place] [address] 02/09/2025 9:00 AM EDT Office Visit Family Medicine [address] [place] [phone] Lashawn Mejia MD [address] [place] [address] [place] [address] Scheduled Procedures Name Priority Associated Diagnoses Date/Ti [...] 023, 12/14/2020, 10/21/2007 CKD PHOS USE SMARTSET 11332 12/26/2023 062 07/2022, 01/16/2016, 02/16/2015, Additional history exists HbA1c 12/26/2023 12/25/2022, 07/0 07/2021, 12/14/2020, Additional history exists COVID-19 Vaccine ( - season) 2024 Influenza Vaccine (FLU shot) (#1) 2024 05/14/2010 TSH 03/21/2024 03/21/2023, 08/0 09/2022, 12/25/2022, Additional history exists GFR 02/14/2025 08/17/2024, 07/08, 06/07/2024, Additional history exists CKD HGB USE SMARTSET 12085 08/17/202508/17, 08/17/2024, 08/04/2024, Additional history exists Lipid [...] this encounter Medical Devices Implanted Type Area Acid Dipper Device Identifier Shelf Expiration Date Model / Serial / Lot Port Implant W8f Poly Cath - [id number] Implanted:Qty : 1 on 09/05/2023 by Orville Zendejas MD at OR [facility] Right: Chest CR BARD : PERIPHERAL VASCULAR [id number] 06/05/2024 [id number] / / [id number] documented as of this encounter Advance Directives * Full Code (Latest Code Status on File) Date Activated Date Inactivated Comments 02/19/2022 1:10 PM 02/19/2022 8:22 PM This order r eflects the patients wishes and were consensually agreed upon. Question Answer Comments Discussion of Advance Directives occurred with: Not Discussed Care Teams Director Of Golf Relationship Specialty Start Date End Date Lashawn Mejia MD [address] [place] [address] [place] [phone] PCP - General Family Medicine 09/22/20 documented as of this encounter
--- OUTSIDE RECORDS SUMMARY | 2024-10-01 03:31 | External Medical Summary | Summary of Care ---
Author Name Unknown Organization [facility] Address [address] [place] [address] Phone [phone] Care Team Providers Care Key Cutter Name Role Phone Lashawn Mejia MD Primary Care Prov ider Reason for Referral * Evaluate & Treat - Unlimited Visits (Within 10 days (routine)) - Authorized Specialty Diagnoses / Procedures Referred By Radha santana Referred To Contact Hospice and Palliative Medicine / Palliative Medicine Diagnoses Endometrial cancer (HCC) Flaquita Wilson MD [address] [place] [address] Phone: tel: fax: Referral ID Status Reason Start Date Expiration Date Visits Requested Visits Authorized [id number] Authorized Specialty Services Required 08/17/2024 [id number] Question Answer Referral Priority Within 10 days (routine) Where should this appointment be scheduled? [facility] Reason for Referral: Cancer Palliative Medicine To Address: Pain & Symptom Management Referral Location Office * Evaluate & Treat - Unlimited Visits (Within 10 days (routine)) - Authorized Specialty Diagnoses / Procedures Referred By Radha santana Referred To Contact Medical Genetics / Hematology Oncology Diagnoses Endometrial cancer (HCC) Flaquita Wilson MD [address] [place] [address] Phone: tel: fax: Referral ID Status Reason Start Date Expiration Date Visits Requested Visits Authorized [id number] Authorized Specialty Services Required 08/17/[id number] Question Answer Referral Priority Within 10 days (routine) Where should this appointment be scheduled? [facility] Is this referral request related to one of the following genetics sub-specialties? If unsure of category, use Medical Genetics Ask-A-Doc. Cancer Personal history of cancer? Yes Type of cancer and age at diagnosis: endometrial cva Family history of cancer? 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 Data Source: Patient, Epic record. 08/17/2024 9:28 AM Lissette Sal CARY [id number] 59 year old Patient Encounter: HEMATOLOGY/ONCOLOGY [facility] Cancer Diagnosis: Recurrent endometrial cancer Current Treatment: Plan was sandwich therapy including 3 cycles of combination [...] agent carboplatin. She received last chemotherapy on 03/10/2024 Previous Treatment: 12/2021 - underwent robotic assisted total laparoscopic hysterectomy with bilateral salpingo-oophorectomy for uterus and bilateral sentinel pelvic lymph node dissection. Oncologic History : 59-year-old female with a history of multiple medical problems including dyslipidemia, obesity, hypertension was referred with the above diagnosis. Patient presented to [facility]/2021 with complaints of postmenopausal bleeding intermittently for 3months accompanied by pelvic pain. She saw her PCP with similar complaints at which time a TVUS wasordered showing a 4mm polyp and 12mm endometrial lining. At her obstetrics gynecology physician appointment, an endometrial biopsy weas obtained revealing [...] diagnosed of brain tumor. Interval History: She had a follow-up CT scan done on 08/13/2023 which revealed mass which appears to involve the vaginal cuff, posterior aspect of the urinary bladder, and inferior aspect of the sigmoid colon measures approximately 5.7 x 3.9 x 3.4 cm, previously 5.3 x 3.4 x 3.1 cm when remeasured similarly, increased in size, Air is present within the vaginal cuff, which is nonspecific but raises the possibility of a colovaginal fistula. She is complaining of increasing lower abdominal pain with the episode of bleeding. She denies any headache, dizziness, chest pain palpitation, nausea, vomiting. LABS/IMAGING: Results for orders placed or performed in visit on 08/17/24 COMPREHENSIVE METABOLIC PANEL Result Value Ref Range BUN 27 (H) 6 - 20 mg/dL CREATININE 1.4 (H) 0.5 - 1.0 mg/dL EGFR 43 (L) >=60 mL/min SODIUM 140 135 - 146 mmol/L POTASSIUM 4.2 3.5 - 5.1 mmol/L CHLORIDE 105 98 - 107 mmol/L CO2 24 22 - 32 mmol/L ANION GAP 11 7 - 15 mmol/L GLUCOSE 119 70 - 120 mg/dL Albumin 3.8 3.8 - 5.0 g/dL AST 10 10 - 35 U/L Alkaline Phosphatase 84 35 - 130 U/L Bilirubin, Total 0.2 <=1.2 mg/dL CALCIUM 9.4 8.4 - 10.2 mg/dL Protein 7.3 6.0 - 8.3 g/dL ALT 5 (L) 10 - 35 U/L CBC Result Value Ref Range WBC 7.94 4.00 - 10.80 K/uL RBC 3.66 3.85 - 5.15 M/uL HGB 9.5 (L) 12.0 - 15.3 g/dL HCT 31.7 (L) 36.0 - 45.2 % MCV 86.6 81.5 - 97.5 fL MCH 26.0 27.0 - 34.0 pg MCHC 30.0 32.0 - 36.0 g/dL RDW 15.1 11.5 - 15.5 % PLT 402 (H) 140 - 400 K/uL MPV 7.9 6.6 - 11.1 fL DIFFERENTIAL, AUTOMATED Result Value Ref Range WBC 7.94 4.00 - 10.80 K/uL Neutrophils % 84.1 (H) 40.0 - 75.0 % Lymphocytes % 5.5 (L) 18.0 - 42.0 % Monocytes % 7.6 1.0 - 11.0 % Eosinophils % 2.5 0.0 - 6.0 % Basophils % 0.3 0.0 - 2.0 % Absolute Neutrophils 6.68 1.80 - 7.70 K/uL Absolute Lymphocytes 0.44 (L) 1.00 - 4.80 K/ul Absolute Monocytes 0.60 0.00 - 1.10 K/uL Absolute Eosinophils 0.20 0.00 - 0.70 K/uL Absolute Basophils 0.02 0.00 - 0.20 K/uL *Note: Due to a large number of results and/or encounters for the requested time period, some results have not been displayed. A complete set of results can be found in Results Review. She had blood test done today shows WBC count of 7.94, hemoglobin 9.5 and platelet count 402. Creatinine is 1.4 and the rest of the electrolytes and LFTs are within normal range. REVIEW OF SYSTEMS: General: No Fever, chills, night sweats, or weight loss. HEENT: No change in visual acuity, blurred or double vision. No epistaxis, facial pain, nasal discharge or change in hearing. Denies dysphagia, no muscosal ulceration, or sores noted. Cardiovascular: No chest pain, MAHONEY, or palpitations Respiratory: No shortness of breath, cough, hemoptysis, or pleuritic chest pain Gastrointestinal: Complaining of lower abdominal pain, No nausea, vomiting, diarrhea, rectal pain or bleeding Neurologic: No numbness, weakness, neuropathic pain or change in cognitive function Psychiatric: No vegetative signs of depression Endocrine: No symptoms of hypothyroidism or hyperglycemia Hematologic: No bleeding or lymph nodes noted As mentioned above, all of the systems were reviewed in full and are unremarkable. Past Medical History: Diagnosis Date Adult body mass index 50.0-59.9 ([facility]) 09/21/2010 DDD (degenerative disc disease), cervical 12/16/2014 mild DDD C5-6 and C6-7 Dyslipidemia, goal LDL below 100 09/21/2010 Female stress incontinence Iron deficiency anemia Obesity, morbid (more than 100 lbs over ideal weight or BMI > 40) ([facility]) 08/24/2015 Other organic sleep apnea PONV (postoperative nausea and vomiting) Prediabetes 01/20/2016 Pseudotumor cerebri 05/09/2000 Restless legs syndrome Urge incontinence of urine 12/05/2011 Vitamin B deficiency Vitamin D deficiency Current Outpatient Medications Medication Sig Dispense Refill Lisinopril 5 MG Oral Tablet (Prinivil) Take by mouth 1 Tablet in the morning. 90 Tablet 1 Levothyroxine Sodium 200 MCG Oral Tablet (Levoxyl) Take 1 Tablet by mouth daily first thing in the morning. (at least 30 min prior to breakfast or other meds) 90 Tablet 1 Nortriptyline HCl 25 MG Oral Capsule (Pamelor) Take 1 Capsule by mouth at bedtime. Do not start before May 06, 2024. 30 Capsule 5 clonazePAM 0.5 MG Oral Tablet (KlonoPIN) Take 1-2 tablets per mouth at bedtime. 60 Tablet 2 oxyBUTYnin Chloride ER 5 MG Oral Tablet Extended Release 24 Hour (Ditropan XL) Take 1 Tablet by mouth in the morning. 30 Tablet 11 rOPINIRole HCl 3 MG Oral Tablet Take 1 Tablet by mouth in the morning and 1 Tablet at noon and 1 Tablet in the evening and 1 Tablet before bedtime. 120 Tablet 3 dexAMETHasone 4 MG Oral Tablet Take 5 tab (20 mg) 12 and 6 hours before chemo (Patient not taking: Reported on 07/13/2024) 60 Tablet 0 Ondansetron HCl 8 MG Oral Tablet Take 1 Tablet by mouth every 8 hours as needed for Nausea. (Patient not taking: Reported on 07/13/2024) 30 Tablet 0 Lidocaine-Prilocaine 2.5-2.5 % External Cream (Emla) APPLY TO SKIN OVER MEDIPORT & COVER 1HR PRIOR TO ACCESSING. (Patient not taking: Reported on 07/13/2024) 30 g 1 buPROPion HCl ER (XL) 150 MG Oral Tablet Extended Release 24 Hour (Wellbutrin XL) Take 1 Tablet by mouth in the morning. (Patient not taking: Reported on 07/13/2024) 30 Tablet 5 Hydrocortisone Acetate 25 MG Rectal Suppository (Anusol HC) Administer 1 Suppository into the rectum at bedtime. 12 Suppository 3 No current facility-administered medications for this visit. Social History Tobacco Use Smoking status: Never Smokeless tobacco: Never Vaping Use Vaping status: Never Used Substance Use Topics Alcohol use: Yes Comment: occassional: very intermittent Drug use: No Review of patient's allergies indicates: Allergen Reactions Gabapentin Neuro complications (Please comment) and Tachycardia Hallucinations PHYSICAL EXAMINATION: General Appearance: Healthy appearing patient in no acute distress BP 117/80 (BP Site: Left Arm, BP Position: Sitting, BP Cuff Size: Large) | Pulse 84 | Temp 36.5 C(97.7 F) (Tympanic) | Resp 16 | SpO2 94% Vitals reviewed. HEENT: No oral or pharyngeal masses, ulceration or thrush noted, no sinus tenderness. Neck is supple with no thyromegaly or JVD noted. Lymph Nodes: No lymphadenopathy noted in the occipital, pre and post auricular, cervical, supra andinfraclavicular, axillary, epitrochlear, inguinal, and popliteal region. Lungs/Thorax: Clear to auscultation, no accessory muscles of respiration being used. Heart: Regular rate and rhythm, normal S1, S2 Abdomen: Soft, tenderness lower abdomen with no rigidity or rebound., bowel sounds present, no appreciable hepatosplenomegaly, no palpable masses Extremeties: Good pulses bilaterally, no peripheral edema. ASSESSMENT: 59-year-old female was referred with a [...] chest was negative. Patient was seen by obstetrics gynecology physician Oncology Dr. Triplett who recommend chemotherapy and [...] completion of chemotherapy and the radiation therapy. Discussed with the patient and the family including and daughter in detail about diagnosis and prognosis and reviewed all the available blood tests and CT scan finding with them. She can benefit with second-line treatment including combination of lenvatinib and pembrolizumab. Discussed with her about the benefit, side effects, toxicity and the risk of treatment. After detailed discussion she agreed to proceed with treatment signed the consent form. She is also going to [facility] for 2[facility] opinion and she has appointment on 08/24/2024. Because of the pain I will refer her to Palliative Care for symptomatic management. I also send theprescription for Percocet to the pharmacy. Also refer her to Genetics for further testing. PLAN: As above. She will return clinic for follow-up in 3 weeks after receiving 1st dose of Keytruda. Decision about proceeding with the treatment will depend on the recommendation from [facility] physician. The patient voiced understanding of all of [...] questions to me.) documented in this encounter Nursing Notes * Jaimie Enciso LPN - 08/17/2024 9:12 AM EST Patient identifed by name and birthdate Do you have any concerns about pain management for today's visit? Yes. Patient instructed to discuss pain concerns with provider during the visit today Living Will or Advance Directive for Health Care as noted on the problem list. [facility] is a way you can talk to your provider on line through e-mail. Would you like to sign up? I can activate it for you? ALREADY ACTIVE Filed Vitals: 08/17/24 0910 BP: 117/80 Pulse: 84 Resp: 16 Temp: 36.5 C (97.7 F) TempSrc: Tympanic SpO2: 94% Patient was instructed to not get up on the exam table/exam chair until directed and assisted by their provider; patient is to remain seated in the chair/ wheelchair/ exam table/ exam chair for fall prevention and safety reasons. Patient is aware to have assistance to step down off exam table/exam chair with personnel. Patient voiced full comprehension of instructions. NOTE: Patient refused request to get a weight. documented in this encounter Miscellaneous Notes * Oncology Pathways Update - Flaquita Wilson MD - 08/17/2024 9:33 AM EST START ON PATHWAY REGIMEN - Uterine [id number]: Lenvatinib 20 mg Daily + Pembrolizumab 200 mg q21 Days Until Progression or Unacceptable Toxicity or up to 24 Months A cycle is every 21 days: Lenvatinib (Lenvima) 20 mg flat dose orally once daily on days 1 through 21 Pembrolizumab (Keytruda) 200 mg flat dose IV once on day 1 The committee recommends an initial lenvatinib dose of 10-14 mg with escalation to full dose if tolerated. Always confirm dose/schedule in your pharmacy ordering system Citations: -Santi Fleming, Joao N, Luis Ribeiro A, et al. Lenvatinib plus Pembrolizumab for Advanced Endometrial Cancer. N Engl J Med. Published online July 25, 2021. doi:10.1056/[id number] URL: https://pubmed.ncbi.nlm.nih.gov/72170730/ -Santi Fleming, Teena BECK, Ga Roldan, et al. Lenvatinib Plus Pembrolizumab in Patients With Advanced Endometrial Cancer. J Clin Oncol. 2020;38(26):9820-4597. doi:10.1200/JCO.19.32882. URL: https://pubmed.ncbi.nlm.nih.gov/90739775/ Patient Characteristics: Endometrioid, Recurrent/Progressive Disease, Second Line - Distant Recurrence, CLEM/pMMR, Relapse < 12 Months from Prior Therapy Histology: Endometrioid Therapeutic Status: Recurrent or Progressive Disease Microsatellite/Mismatch Repair Status: CLEM/pMMR Line of Therapy: Second Line - Distant Recurrence Time to Recurrence: Relapse < 12 Months From Prior Therapy Intent of Therapy: Non-Curative / Palliative Intent, Discussed with Patient * Oncology Pathways Notification - Flaquita Wilson MD - 08/17/2024 9:33 AM EST A new patient decision has been made in [facility]Path. Details of this patient have been provided below: Patient Information: Name: Lissette CARY : 1965 Insurance Provider: ALICE KERR Insurance Insurance Plan ID: [id number] Provider Name: Flaquita Wilson Disease: Uterine Pathway Followed: Uterine, Endometrioid, Recurrent/Progressive Disease, Second Line - Distant Recurrence, CLEM/pMMR, Relapse < 12 Months from Prior Therapy Patient Characteristics: Endometrioid, Recurrent/Progressive Disease, Second Line - Distant Recurrence, CLEM/pMMR, Relapse < 12 Months from Prior Therapy Histology: Endometrioid Therapeutic Status: Recurrent or Progressive Disease Microsatellite/Mismatch Repair Status: CLEM/pMMR Line of Therapy: Second Line - Distant Recurrence Time to Recurrence: Relapse < 12 Months From Prior Therapy Intent of Therapy: Non-Curative / Palliative Intent, Discussed with PatientTreatment Details: START ON PATHWAY REGIMEN [id number]: Lenvatinib 20 mg Daily + Pembrolizumab 200 mg q21 Days Until Progression or Unacceptable Toxicity or up to 24 Months A cycle is every 21 days: Lenvatinib (Lenvima) 20 mg flat dose orally once daily on days 1 through 21 Pembrolizumab (Keytruda) 200 mg flat dose IV once on day 1 The committee recommends an initial lenvatinib dose of 10-14 mg with escalation to full dose if tolerated. Always confirm dose/schedule in your pharmacy ordering system Citations: -Santi Fleming, Joao N, Luis Ribeiro A, et al. Lenvatinib plus Pembrolizumab for Advanced Endometrial Cancer. N Engl J Med. Published online July 25, 2021. doi:10.1056/[id number] URL: https://pubmed.ncbi.nlm.nih.gov/10839655/ -Teena Murray, Ga Roldan, et al. Lenvatinib Plus Pembrolizumab in Patients With Advanced Endometrial Cancer. J Clin Oncol. 2020;38(26):2081-1438. doi:10.1200/JCO.19.11859. URL: https://pubmed.ncbi.nlm.nih.gov/27010928/ documented in this encounter Plan of Treatment Upcoming Encounters Date Type Department Care Team (Latest Contact Info) Description 08/26/2024 10:00 AM EST Pt Ed by Nurse Hematology/Oncolog y [place] [place] Amy [facility]once [address] [place] [phone] Nurse Rosario Hem Onc [place] [address] [place] [address] 09/01/2024 8:00 AM EST Office Visit Family Medicine [address] [place] [phone] MD [address] [place] [address] [place] [phone] 09/01/2024 8:30 AM EST Laboratory Laboratory [address] [place] [phone] [place] [address] 09/02/2024 9:20 AM EST Telemedicine Neurology Titi [address] [place] [phone] Clif Mckeon MD [address] [facility] [place] [address] 09/15/2024 7:30 AM EDT Laboratory Laboratory [address] [place] [phone] [place] [address] 09/16/2024 2:41 PM EDT Hospital Encounter OR GL, Operating Room, [facility] - 4th Floor [address] [facility] [place] [phone] Anabella Alberto DO [address] [place] [address] 09/16/2024 2:41 PM EDT - 09/16/2024 3:11 PM EDT Surgery OR GLH, Operating Room, [facility] - 4th Floor [address] [place] [phone] Anabella Alberto DO [address] [place] [address] SIGMOIDOSCOPY FLEXIBLE DIAGNOSTIC 09/22/2024 2:15 PM EDT Office [facility] [address] [place] [phone] Flaquita Wilson MD [address] [place] [address] 09/22/2024 2:45 PM EDT Nurse Only Hematology/Oncolog y Treatment, [place] [address] [place] [phone] Rosario, Chair [address] [facility] [place] [address] 11/30/2024 9:00 AM EDT Office Visit [facility] Disorders [facility] [address] [place] [phone] Silvia Holt CRNP [address] [place] [address] 02/09/2025 9:00 AM EDT Office Visit [address] Medicine [address] [phone] Lashawn Mejia MD [address] [place] [address] [place] [address] Scheduled Procedures Name Priority Associated Diagnoses Date/Ti me SIGMOIDOSCOPY FLEXIBLE DIAGNOSTIC Endometrial cancer (HCC) 09/16/2024 2:41 PM EDT Scheduled Referrals Name Type Priority Associated Diagnoses Orde r Schedule GENETICS REFERRAL OP Referral Within 10 d ays (routine) Endometrial cancer (HCC) Ordered: 08/17/2024 PALLIATIVE CARE REFERRAL OP Referral Within 10 days (routine) Endometrial cancer (HCC) Ordered: 08/17/2024 Health Maintenance Due Date Last Done Comments [...] 023, 12/14/2020, 10/21/2007 CKD PHOS USE SMARTSET 40779 12/26/202312/06, 01/16/2016, 02/16/2015, Additional history exists HbA1c 12/26/2023 12/25/2022, 07/0 07/2021, 12/14/2020, Additional history exists COVID-19 Vaccine ( season) 2024 Influenza Vaccine (FLU shot) (#1) 2024 05/14/2010 TSH 03/21/2024 03/21/2023, 08/0 09/2022, 12/25/2022, Additional history exists GFR 02/14/2025 08/17/2024, 2 03/2025, 06/07/2024, Additional history exists CKD HGB USE SMARTSET 43428 08/17/202508/17, 08/17/2024, 08/04/2024, Additional history exists Lipid [...] this encounter Medical Devices Implanted Type Area Blue Line Operator Device Identifier Shelf Expiration Date Model / Serial / Lot Port Implant [id number] Poly Cath - [id number] Implanted:Qty : 1 on 09/05/2023 by Orville Zendejas MD at [facility] Right: Chest CR BARD : PERIPHERAL VASCULAR [id number] 06/05/2024 [id number] / / [id number] documented as of this encounter Visit Diagnoses [...] Directives occurred with: Not Discussed Care Teams Key Cutter Relationship Specialty Start Date End Date Lashawn Mejia MD [address] [place] [address] [place] [address] PCP - General Family Medicine 09/22/20 documented as of this encounter"
--- OUTSIDE RECORDS SUMMARY | 2024-10-01 03:32 | External Medical Summary | Summary of Care ---
Author Name Unknown Organization [facility] Address [address] [place] [address] Phone [phone] Care Team Providers Care Material Expediter Name Role Phone Lashawn Mejia MD Primary Care Prov ider Encounter Details Date Type Department Care Team (Late st Contact Info) Description 07/05/2024 Orders Only Hematology/Oncology, [facility] [address] [place], [place] [phone] Lali Martinez CRNP [address] [place] [address] Blood in stool, abena* Allergies Active Allergy Reactions Criticality Noted Date Comments Gabapentin Neuro complications (Please comment),Tachycardia 02/06/2023 Hallucinations documented as of this encounter (statuses as of 07/05/2024) Medications Lisinopril 5 MG Oral Tablet (Prinivil)Indicati ons:HTN, goal below 140/90 Take by mouth 1 Tablet in the morning. 90 Tablet 1 12/19/19 23 Active dexAMETHasone 4 MG Oral TabletIndications: Endometrial cancer (HCC) Take 5 tab (20 mg) 12 and 6 hours before chemo 60 Tablet 08/26/19 24 Active Additional Information Patient not taking.Reported on 07/01/2024 Ondansetron HCl 8 MG Oral TabletIndications: Endometrial cancer (HCC) Take 1 Tablet by mouth every 8 hours as needed for Nausea. 30 Tablet 08/26/19 24 Active Additional Information Patient not taking.Reported on 06/23/2024 Lidocaine-Prilocai ne 2.5-2.5 % External Cream (Emla)Indications: Endometrial cancer (HCC) APPLY TO SKIN OVER MEDIPORT & COVER 1HR PRIOR TO ACCESSING. 30 g 1 09/08/19 Active Additional Information Patient not taking.Reported on 06/23/2024 Pregabalin 50 MG Oral Capsule (Lyrica)Indication s:Endometrial cancer (HCC) Take 1 Capsule by mouth in the morning and 1 Capsule before bedtime. 60 Capsule 11/20/19 Active Additional Information Patient not taking.Reported on 06/23/2024 Levothyroxine Sodium 200 MCG Oral Tablet (Levoxyl)Indicatio ns:Acquired hypothyroidism Take 1 Tablet by mouth daily first thing in the morning. (at least 30 min prior to breakfast or other meds) 90 Tablet 1 01/01/20 Active oxyCODONE-Acetamin ophen 5-325 MG Oral Tablet (Percocet)Indicati ons:Endometrial cancer (HCC) Take 1 Tablet by mouth every 4 hours as needed for Pain, Moderate. 60 Tablet 01/27/20 Active Additional Information Patient not taking.Reported on 06/23/2024 rOPINIRole HCl 3 MG Oral TabletIndications: Restless legs syndrome Take 1 Tablet by mouth in the morning and 1 Tablet at noon and 1 Tablet in the evening and 1 Tablet before bedtime. 120 Tablet 3 04/20/20 24 Active buPROPion HCl ER (XL) 150 MG Oral Tablet Extended Release 24 Hour (Wellbutrin XL) Take 1 Tablet by mouth in the morning. 30 Tablet 5 04/28/20 24 Active Additional Information Patient not taking.Reported on 07/01/2024 Nortriptyline HCl 25 MG Oral Capsule (Pamelor)Indicatio [...] morning. 30 Tablet 11 07/01/20 24 Active documented as of this encounter (statuses as of 07/05/2024) Active Problems Problem Noted Date Diagnosed Date Encounter for antineoplastic chemotherapy 2023 Vulvar irritation 05/12/2023 Overview (05/12/2023): BIOPSY (05/06/2023) -- BENIGN A. Skin, right vulva, biopsy: Benign mature sebaceous glands with minimal inflammation. Negative for dysplasia and malignancy. Comment: The findings are non-specific, although sebaceous hyperplasia was considered. Clinical correlation is required to determine if the biopsy if labor representative. B. Skin, left vulva, biopsy: Mild [...] as of this encounter (statuses as of 07/05/2024) Resolved Problems Problem Noted Date Diagnosed Date [...] as of this encounter (statuses as of 07/05/2024) Immunizations Name Administration Dates Next Due Seasonal [...] Department Care Team (Latest Contact Info) Description 07/06/2024 7:40 AM EST Laboratory Laboratory [address] [place] [phone] [place], Lab [address] [place] [address] 07/09/2024 1:00 PM EST Office Visit Urology Elana Galicia [address] [place] [address] Cee Henley PA-C [address] [place] [address] 07/13/2024 2:23 PM EST Hospital Encounter OR [facility], Operating Room, [facility] - 4th Floor [address] [place] [address] Fer Rogers MD [address] [place] [address] 07/13/2024 2:23 PM EST - 07/13/2024 3:07 PM EST Surgery OR [facility], Operating Room, [facility] - 4th Floor [address] [place] [phone] Fer Rogers MD [address] [place] [address] COLONOSCOPY FLEXIBLE PROXIMAL DIAGNOSTIC 08/04/2024 10:00 AM EST Nurse Only Hematology/Oncolog y Treatment, [place] [address] [place], [place] [address] Rosario, Chair [address] [place] [address] 08/13/2024 11:40 AM EST Office Visit Urogynecology Alicia Simpsons [address] [place] [address] Shanti Cummings PA-C [address] [place] [address] 09/02/2024 9:20 AM EST Telemedicine Neurology Catalino Ortiz [place] [address] [place] [address] Clif Mckeon MD [address] [facility] [place] [address] 09/15/2024 7:30 AM EDT Laboratory Laboratory [address] [place] [phone] [place], [address] [place] [address] 09/22/2024 2:15 PM EDT Office Visit Hematology/Oncolog y Scenery Rosario [place] [address] [place] [address] Flaquita Wilson MD [address] [place] [address] 09/22/2024 2:45 PM EDT Nurse Only Hematology/[facility]olog y Treatment, [place] [facility] [place] [address] Rosario, Chair [address] Hem Onc Sc[address] [place] [address] 11/30/2024 9:00 AM EDT [facility] [address] [place] [phone] Silvia Holt CRNP [address] [place] [address] Scheduled Orders Name Type Priority Associated Diagnoses Orde r Schedule UPPER GI ENDOSCOPY Gastro Upper Routine Blood in stool, abena Ordered: 07/05/2024 Scheduled Procedures Name Priority Associated Diagnoses Date/Ti me COLONOSCOPY FLEXIBLE PROXIMA L DIAGNOSTIC Blood in stool, abena 07/13/2024 2:23 PM EST Health Maintenance Due Date Last Done Comments Hepatitis B Vaccine (1 of 3 - 19+ 3-dose series) 01/31/1984 Cologuard 2010 Fecal Occult Blood Test 2010 Sigmoidoscopy 2010 Pneumococcal Vaccine: 50+ Years (1 of 1 - PCV) 2015 Depression Monitoring 09/12/2016 09/13/2015 DTap/Tdap Vaccines (2 - Td or Tdap) 03/25/2018 03/25/2008 Mammogram 03/02/2021 03/02/2020, 09/04, 09/06/2011, Additional history exists PAP SMEAR-ANNUAL AGES 18-100 12/28/2022 12/28/2021, 12/05/2011, 12/05/2011, Additional history exists Albumin/Creatinine Ratio 12/26/2023 023, 12/14/2020, 10/21/2007 CKD PHOS USE SMARTSET 16940 12/26/2023 06/2 07/2022, 01/16/2016, 02/16/2015, Additional history exists HbA1c 12/26/2023 12/25/2022, 07/0 07/2021, 12/14/2020, Additional history exists COVID-19 Vaccine ( season) 2024 Influenza Vaccine (FLU shot) (#1) 2024 05/14/2010 TSH 03/21/2024 03/21/2023, 080 09/2022, 12/25/2022, Additional history exists GFR 12/06/2024 06/07/2024, 100 10/2023, 03/10/2024, Additional history exists CKD HGB USE SMARTSET 46491 06/07/202506/07, 06/07/2024, 03/10/2024, Additional history exists Lipid Panel 01/04/2027 01/04/2022, 09/04, 06/01/2016, Additional history exists Colonoscopy 07/03/2033 07/03/2023, 09/25/2017 Colorectal Cancer Screening 07/03/2033 Diabetic Eye Exam Discontinued 10/03/2020, , 10/24/2009, Additional history exists HPV (Gardasil) Vaccine Aged Out No lo nger eligible based on patient's age to complete this topic MENINGOCOCCAL (MENACTRA/MENVEO) Aged Out No longer eligible based on patient's age to complete this topic Zoster Vaccines Discontinued documented as of this encounter Medical Devices Implanted Type Area Circular Ripsaw Operator Device Identifier Shelf Expiration Date Model / Serial / Lot Port Implant [id number] Poly Cath - [id number] Implanted:Qty : 1 on 09/05/2023 by Orville Zendejas MD at [facility] Right: Chest CR BARD : PERIPHERAL VASCULAR [id number] 06/05/2024 [id number] / / [id number] documented as of this encounter Visit Diagnoses Diagnosis Blood in stool, abena- Primary Blood in stool Blood in stool, abena Blood in stool documented in this encounter Advance Directives * Full Code (Latest Code Status on File) Date Activated Date Inactivated Comments 02/19/2022 1:10 PM 02/19/2022 8:22 PM This order r eflects the patients wishes and were consensually agreed upon. Question Answer Comments Discussion of Advance Directives occurred with: Not Discussed Care Teams Material Expediter Relationship Specialty Start Date End Date Lashawn Mejia MD [address] [place] [address] [place] [phone] PCP - General Family Medicine 09/22/20 documented as of this encounter
--- OUTSIDE RECORDS SUMMARY | 2024-10-01 03:32 | External Medical Summary ---
Author Name Unknown Address Unknown Organization K01:LABORATORY [facility] - [address] [place] [address] Laboratory Report Ordering Provider Test Date Status MEÑO QUAN 08/04/2024 10:13:17 Final Observation Date Value Abnormality Reference (Units ) Status Creatinine 08/04/2024 10:13:17 1.3 Above high normal 0.5-1.0 (mg/dL) Final Glomerular filtration rate/1.73 sq M.predicted [Volume Rate/Area] in Serum, Plasma or Blood by Creatinine-based formula (CKD-EPI) 08/04/2024 10:13:17 49 Below low normal >=60 (mL/min) Final eGFR is calculated based on the CKD-EPI 2020 equation. Performing Location LABORATORY [facility] - [address] [place] [address]
--- OUTSIDE RECORDS SUMMARY | 2024-10-01 03:32 | External Medical Summary ---
Author Name Unknown Address Unknown Organization K01:[facility] [address] [facility] [address] Laboratory Report Ordering Provider Test Date Status MEÑO QUAN 08/04/2024 10:13:17 Final Observation Date Value Abnormality Reference (Units ) Status Ferritin 08/04/2024 10:13:17 62 13-150 (ng /mL) Final Postmenopausal women have hi gher ferritin levels than pre-menopausal women. The above reference interval is based on pre-menopausal women. Performing Location LABORATORY [facility] - [address] [place] [address]
--- OUTSIDE RECORDS SUMMARY | 2024-10-01 03:32 | External Medical Summary ---
Author Name Unknown Address Unknown Organization K01[facility] [address] [facility] [facility] [address] Laboratory Report Ordering Provider Test Date Status MEÑO QUAN 08/04/2024 10:13:17 Final Observation Date Value Abnormality Reference (Units ) Status Cancer Ag 125 08/04/2024 10:13:17 21.5 <=38.1 (U/mL) Final Performing Location LAB[facility]AT[facility] - [address] [place] [address]
--- OUTSIDE RECORDS SUMMARY | 2024-10-01 03:32 | External Medical Summary | Summary of Care ---
Author Name Unknown Organization [facility] Address [address] [place] [address] Phone [phone] Care Team Providers Care Inspection Supervisor Name Role Phone Lashawn Mejia MD Primary Care Prov ider Reason for Visit * Reason Onset Date Comments Health Maintenance 07/08/2024 Encounter Details Date Type Department Care Team (Late st Contact Info) Description 07/08/2024 Telephone Family Medicine [address] [phone] Lashawn Mejia MD [address] [place] [address] Health Maintenance Allergies Active Allergy Reactions Criticality Noted Date Comments Gabapentin Neuro complications (Please comment),Tachycardia 02/06/2023 Hallucinations documented as of this encounter (statuses as of 07/08/2024) Medications Lisinopril 5 MG Oral Tablet (Prinivil)Indicati [...] 1 Capsule before bedtime. 60 Capsule 11/20/19 24 Active Additional Information Patient not taking.Reported on 06/23/2024 Levothyroxine Sodium 200 MCG Oral Tablet (Levoxyl)Indicatio ns:Acquired hypothyroidism Take 1 Tablet by mouth daily first thing in the morning. (at least 30 min prior to breakfast or other meds) 90 Tablet 1 01/01/20 24 Active oxyCODONE-Acetamin ophen 5-325 MG Oral Tablet [...] 07/01/2024 Nortriptyline HCl 25 MG Oral Capsule (Pamelor)Hayleytio [...] as of this encounter (statuses as of 07/08/2024) Active Problems Problem Noted Date Diagnosed Date Encounter for antineoplastic chemotherapy 2023 Vulvar irritation 05/12/2023 Overview (05/12/2023): BIOPSY (05/06/2023) -- BENIGN A. Skin, right vulva, biopsy: Benign mature sebaceous glands with minimal inflammation. Negative for dysplasia and malignancy. Comment: The findings are non-specific, although sebaceous hyperplasia was considered. Clinical correlation is required to determine if the biopsy if personal banking representative. B. 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 Not on file Not on file documented as of this encounter Miscellaneous Notes * Telephone Encounter - Madelyn Butler LPN - 07/08/2024 1:20 PM EST Care Gaps Comprehensive Care Outreach Last Office/Telemedicine Visit: 03/21/2023 (in office), 04/28/2024 (telemedicine) Next Office Visit: Visit date not found Hemoglobin AIC Results: Lab Results Component Value Date/Time HEMOGLOBIN A1C - [facility] 5.8 (H) 12/25/2022 10:41 AM HEMOGLOBIN A1C - [facility] 5.4 01/04/2022 11:25 AM HEMOGLOBIN A1C - [facility] 6.0 (H) 12/14/2020 10:39 AM BP Readings from Last 1 Encounters: 07/01/24 158/96 Reviewed Health Maintenance below: Health Maintenance Topic Date Due Hepatitis B Vaccine (1 of 3 - 19+ 3-dose series) Never done Pneumococcal Vaccine: 50+ Years (1 of 1 - PCV) Never done Depression Monitoring 09/12/2016 DTap/Tdap Vaccines (2 - Td or Tdap) 03/25/2018 Mammogram 03/02/2021 PAP SMEAR-ANNUAL AGES 18-100 12/28/2022 Albumin/Creatinine Ratio 12/26/2023 HbA1c 12/26/2023 CKD PHOS USE SMARTSET 40930 12/26/2023 Ov scheduled Mamm declined Pap hyster Labs add lipid Care Gap Outreach Action Taken: Spoke to patient Labs ordered that are due. I pended her lipid panel. Last done 2021. Please review and sign if appropriate documented in this encounter Plan of Treatment Upcoming Encounters Date Type Department Care Team (Latest Contact Info) Description 07/09/2024 1:00 PM EST Office Visit Urology Elana Galicia [address] [place] [address] Cee Henley PA-C [address] [place] [address] 07/13/2024 1:30 PM EST Hospital Encounter OR [place], Operating Room, [facility] - 4th Floor [address] [facility] [place] [phone] Fer Rogers MD [address] [place] [address] 07/13/2024 1:30 PM EST - 07/13/2024 2:23 PM EST Surgery OR [facility], Operating Room, [facility] - 4th Floor [address] [facility] [place] [phone] Fer Rogers MD [address] [place] [address] COLONOSCOPY FLEXIBLE PROXIMAL DIAGNOSTIC 08/04/2024 10:00 AM EST Nurse Only Hematology/Oncolog y Treatment, [address] [phone] Rosario, Chair [address] Hem Onc Scenery [address] [place] [address] 08/13/2024 11:40 AM EST Office Visit Urogynecology [facility] [address] [place] [address] Shanti Cummings PA-C [address] [place] [address] 08/18/2024 8:00 AM EST Office Visit [address] [phone] MD [address] [place] [address] [place] [phone] 08/18/2024 8:30 AM EST Laboratory Laboratory [address] [place] [address] [place] [address] 09/02/2024 9:20 AM EST Telemedicine Neurology [address] [place] [address] Clif Mckeon MD [address] [facility] [place] [address] 09/15/2024 7:30 AM EDT Laboratory Laboratory [address] [place] [phone] [address] [place] [address] 09/22/2024 2:15 PM EDT Office Visit Hematology/[facility]colog y [facility] [place] [address] [place] [address] Flaquita Wilson MD [address] [place] [address] 09/22/2024 2:45 PM EDT Nurse Only Hematology/Oncolog y Treatment, [place] [address] [place] [address] Rosario, Chair [address] [place] [address] 11/30/2024 9:00 AM EDT [facility] [place] [address] [place] [phone] Silvia Holt CRNP [address] [place] [address] 02/09/2025 9:00 AM EDT Office Visit Family Medicine [address] [place] [address] Lashawn Mejia MD [address] [place] [address] [place] [address] Scheduled Orders Name Type Priority Associated Diagnoses Orde r Schedule HEMOGLOBIN A1C Lab Routine Diabetes mellitus (HCC) Expected: 07/08/2024, Expires: 07/08/2025 ALBUMIN / CREATININE RATIO, URINE Lab Routine Screening for nephropathy Expected: 07/08/2024, Expires: 07/08/2025 PHOSPHORUS Lab Routine Chronic kidney disease, unspecified CKD stage Expected: 07/08/2024, Expires: 07/08/2025 LIPID PANEL WITH DIRECT LDL IF TG IS HIGH Lab Routine Dyslipidemia, goal LDL below 100 Expected: 07/08/2024, Expires: 07/08/2025 Scheduled Procedures Name Priority Associated Diagnoses Date/Ti me COLONOSCOPY FLEXIBLE PROXIMA L DIAGNOSTIC Blood in stool, abena 07/13/2024 1:30 PM EST ESOPHAGOGASTRODUODENOSCOPY ( EGD), FLEXIBLE, TRANSORAL, DIAGNOSTIC Blood in stool, abena 07/13/2024 1:30 PM EST Health Maintenance Due Date Last [...] 023, 12/14/2020, 10/21/2007 CKD PHOS USE SMARTSET 74348 12/26/2023 06/2 07/2022, 01/16/2016, 02/16/2015, Additional history exists HbA1c 12/26/2023 12/25/2022, 07/0 07/2021, 12/14/2020, Additional history exists COVID-19 Vaccine ( season) 2024 Influenza Vaccine (FLU shot) (#1) 2024 05/14/2010 TSH 03/21/2024 03/21/2023, 08/0 09/2022, 12/25/2022, Additional history exists GFR 12/06/2024 06/07/2024, 10/0 10/2023, 03/10/2024, Additional history exists CKD HGB USE SMARTSET 80808 06/07/202506/07, 06/07/2024, 03/10/2024, Additional history exists Lipid [...] this encounter Medical Devices Implanted Type Area Carcass Washer Device Identifier Shelf Expiration Date Model / Serial / Lot Port Implant W8f Poly Cath - [id number] Implanted:Qty : 1 on 09/05/2023 by Orville Zendejas MD at OR [facility] Right: Chest CR BARD : PERIPHERAL VASCULAR [id number] 06/05/2024 [id number] / / [id number] documented as of this encounter Visit Diagnoses Diagnosis Diabetes mellitus (HCC)- Primary Type II or unspecified type diabetes mellitus without mention of complication, not stated as uncontrolled Screening for nephropathy Chronic kidney disease, unspecified CKD stage Dyslipidemia, goal LDL below 100 Other and unspecified hyperlipidemia Blood in stool, abena Blood in stool documented in this encounter Advance Directives * Full Code (Latest Code Status on File) Date Activated Date Inactivated Comments 02/19/2022 1:10 PM 02/19/2022 8:22 PM This order r eflects the patients wishes and were consensually agreed upon. Question Answer Comments Discussion of Advance Directives occurred with: Not Discussed Care Teams Inspection Supervisor Relationship Specialty Start Date End Date Lashawn Mejia MD [address] [place] [address] [place] [phone] PCP - General Family Medicine 09/22/20 documented as of this encounter
--- OUTSIDE RECORDS SUMMARY | 2024-10-01 03:32 | External Medical Summary | Summary of Care ---
Author Name Unknown Organization [facility] Address [address] [place] [address] Phone [phone] Care Team Providers Care Hedis Abstractor Name Role Phone Lashawn Mejia MD Primary Care Prov ider Reason for Visit * Auth/Cert Specialty Diagnoses / Procedures Referred By Contromeo t Referred To Contact Diagnoses Blood in stool, abena Blood in stool, abena [K92.1] Procedures COLONOSCOPY, DIAGNOSTIC (RECTUM) EGD, FLEXIBLE, DIAGNOSTIC COLONOSCOPY FLEXIBLE PROXIMAL DIAGNOSTIC ESOPHAGOGASTRODUODENOSCOPY (EGD), FLEXIBLE, TRANSORAL, DIAGNOSTIC Pillo Wilder DO [address] [place] [address] Phone: tel: fax: [facility] [address] [place] [address] Phone: tel: Referral ID Status Reason Start Date Expiration Date Visits Re quested Visits Authorized [id number] Encounter Details Date Type Department Care Team (Latest Contact Info) Description 07/13/2024 8:07 AM EST - 07/13/2024 10:59 AM EST Hospital Encounter OR [facility], Operating Room, [facility] Floor [address] [place] [address] Fer Rogers MD [address] [place] [id number] Upper GI Endoscopy Discharge Disposition: Home - Self Care Allergies Active Allergy Reactions Criticality Noted Date Comments Gabapentin Neuro complications (Please comment),Tachycardia 02/06/2023 Hallucinations documented as of this encounter (statuses as of 07/13/2024) Medications Lisinopril 5 MG Oral Tablet (Prinivil)Indicati [...] meds) 90 Tablet 1 01/01/20 24 Active rOPINIRole HCl 3 MG Oral TabletIndications: [...] morning. 30 Tablet 11 07/01/20 24 Active Pregabalin 50 MG Oral Capsule (Lyrica)Indication s:Endometrial cancer (HCC) Take 1 Capsule by mouth in the morning and 1 Capsule before bedtime. 60 Capsule 11/20/19 24 025 Discontin ued(Patie nt preferenc e/discont inuation) oxyCODONE-Acetamin ophen 5-325 MG Oral Tablet (Percocet)Indicati ons:Endometrial cancer (HCC) Take 1 Tablet by mouth every 4 hours as needed for Pain, Moderate. 60 Tablet 01/27/20 24 025 Discontin ued(Patie nt preferenc e/discont inuation) documented as of this encounter (statuses as of 07/13/2024) Active Problems Problem Noted Date Diagnosed Date Encounter for antineoplastic chemotherapy 2023 Vulvar irritation 05/12/2023 Overview (05/12/2023): BIOPSY (05/06/2023) -- BENIGN A. Skin, right vulva, biopsy: Benign mature sebaceous glands with minimal inflammation. Negative for dysplasia and malignancy. Comment: The findings are non-specific, although sebaceous hyperplasia was considered. Clinical correlation is required to determine if the biopsy if agency service representative. B. Skin, left vulva, biopsy: [...] as of this encounter (statuses as of 07/13/2024) Resolved Problems Problem Noted Date Diagnosed Date [...] as of this encounter (statuses as of 07/13/2024) Immunizations Name Administration Dates Next Due Seasonal [...] Sign Reading Time Taken Comments Blood Pressure 145/86 07/13/2024 10:31 AM EST Pulse 77 07/13/2024 10:31 AM EST Temperature 36.5 C (97.7 F) 07/13/2024 10:[address] Respiratory Rate 17 07/13/2024 10:31 AM EST Oxygen Saturation 94% 07/13/2024 10:31 AM EST Inhaled Oxygen Concentration - - Weight 147.4 kg (325 lb) 07/13/2024 8:31 AM EST Height 160 cm (5' 2.99") 07/13/2024 8:31 AM EST Body Mass Index 57.59 07/13/2024 8:31 AM EST documented in this encounter H&P Notes * Fer Rogers MD - 07/13/2024 9:05 AM EST Endoscopy Pre-Procedure Assessment Name: Lissette CARY Date: 07/13/2024 Time: 9:05 AM Procedure: Colonoscopy; with Indication(s) of evaluation of GI blood loss or iron- deficiency anemia Upper GI Endoscopy; with Indication(s) of evaluation and management of GI bleeding and/or iron-deficiency anemia Endoscopy Pre-Procedure Assessment: Prior to the procedure, the patient was identified. The patient's history, medications and allergies were reviewed as per the Anesthesia Assessment. The patient is competent. The risks and benefits of the proposed procedure and the planned sedation were discussed with the patient. All questions were answered and informed consent for the procedure was obtained. This patient has undergone a preprocedural evaluation. A determination has been made to proceed with the planned procedure under [facility] procedural guidelines and the [facility] Non-Emergent, Elective Medical Services and Treatment Recommendations (published on 10-12-19). The community and hospital prevalence of COVID-19 has been discussed as well as this patient's specific risks associated with SARS-CoV-19 infection. Based upon the clinical acuity and patient-specific care considerations, this procedure is deemed a Tier II - Intermediate acuity treatment or service with either progression or the threat of progressive disease related to the delay in treatment. Not providing the service has the potential for increasing morbidity or mortality. BP 137/90 | Pulse 93 | Temp 36 C (96.8 F) (Temporal Artery) | Resp 18 | Ht 1.6 m (5' 2.99") | Wt (!) 147.4 kg (325 lb) | SpO2 97% | BMI 57.59 kg/m | BSA 2.56 m Prior to Admission medications Medication Sig Last Dose Discont. oxyBUTYnin Chloride ER 5 MG Oral Tablet Extended Release 24 Hour (Ditropan XL) Take 1 Tablet by mouth in the morning. 07/13/2024 Morning clonazePAM 0.5 MG Oral Tablet (KlonoPIN) Take 1-2 tablets per mouth at bedtime. Past Week Nortriptyline HCl 25 MG Oral Capsule (Pamelor) Take 1 Capsule by mouth at bedtime. Do not start before May 06, 2024. Past Week rOPINIRole HCl 3 MG Oral Tablet Take 1 Tablet by mouth in the morning and 1 Tablet at noon and 1 Tablet in the evening and 1 Tablet before bedtime. 07/13/2024 Morning Levothyroxine Sodium 200 MCG Oral Tablet (Levoxyl) Take 1 Tablet by mouth daily first thing in the morning. (at least 30 min prior to breakfast or other meds) 07/12/2024 Morning Lisinopril 5 MG Oral Tablet (Prinivil) Take by mouth 1 Tablet in the morning. 07/12/2024 Nitrofurantoin Monohyd Macro 100 MG Oral Capsule (Macrobid) Take 1 Capsule by mouth in the morning and 1 Capsule before bedtime. Do all this for 7 days. With food until gone. Ciprofloxacin HCl 250 MG Oral Tablet (Cipro) Take 1 Tablet by mouth in the morning and 1 Tablet before bedtime. Do all this for 5 days. Nitrofurantoin Monohyd Macro 100 MG Oral Capsule (Macrobid) Take 1 Capsule by mouth in the morning and 1 Capsule before bedtime. Do all this for 7 days. With food until gone. buPROPion HCl ER (XL) 150 MG Oral Tablet Extended Release 24 Hour (Wellbutrin XL) Take 1 Tablet by mouth in the morning. Patient not taking: Reported on 07/13/2024 Not Taking Lidocaine-Prilocaine 2.5-2.5 % External Cream (Emla) APPLY TO SKIN OVER MEDIPORT & COVER 1HR PRIOR TO ACCESSING. Patient not taking: Reported on 07/13/2024 Not Taking dexAMETHasone 4 MG Oral Tablet Take 5 tab (20 mg) 12 and 6 hours before chemo Patient not taking: Reported on 07/13/2024 Not Taking Ondansetron HCl 8 MG Oral Tablet Take 1 Tablet by mouth every 8 hours as needed for Nausea. Patient not taking: Reported on 07/13/2024 Not Taking Review of patient's allergies indicates: Allergen Reactions Gabapentin Neuro complications (Please comment) and Tachycardia Hallucinations Physical Exam: Mental Status Examination: alert and oriented. General: nad, calm Airway Examination: normal oropharyngeal airway and neck mobility. CV: no JVD Respiratory Examination: symmetrical excursion Abd:soft/ntd ASA Grade: III - A patient with severe systemic disease. After reviewing the risks and benefits, the patient was deemed in satisfactory condition to undergothe procedure. The anesthesia plan was to use general anesthesia. Fer Rogers MD 07/13/2024 documented in this encounter Procedure Notes * Lashawn Mejia MD - 07/13/2024 9:18 AM ESTAssociated Order(s): UPPER GI ENDOSCOPY [facility] Patient Name: Lissette Cary Procedure Date: 07/13/2024 9:18 AM Date of : 1965 Admit Type: Outpatient Note Status: Finalized Date of : 1965 Admit Type: Outpatient Age: 59 Room: OR 6 Gender: Female Note Status: Finalized Procedure: Upper GI endoscopy Indications: Iron deficiency anemia Providers: Fer Rogers MD (Doctor) Referring MD: Lashawn Cano Medicines: Propofol per Anesthesia Complications: No immediate complications. Estimated blood loss: None. Procedure: Pre-Anesthesia Assessment: - - Prior to the procedure, a History and Physical was performed, patient medications, allergies and sensitivities were reviewed. The patient's tolerance of previous anesthesia was reviewed. See [facility] for further details. - The risks, benefits, and alternatives of the procedure including the sedation options and risks were discussed with the patient. All questions were answered and informed consent was obtained. - Patient identification and proposed procedure were verified prior to the procedure by the physician and the nurse. The procedure was verified in the procedure room. - See [facility] for documentation of the pre-procedure assessment including ASA status. - After I obtained informed consent, the scope was carefully and meticulously passed under direct vision only when the lumen was definitively identified. CO2 insufflation was utilized throughout the entire procedure exclusively. After obtaining informed consent, the endoscope was passed under direct vision. All instruments were visually inspected immediately before and after removal from the patient to ensure they are fully intact. Throughout the procedure, the patient's blood pressure, pulse, and oxygen saturations were monitored continuously.The upper GI endoscopy was accomplished without difficulty. The patient tolerated the procedure well. The GIF-Q190 Endoscope ([id number]) was introduced through the mouth, and advanced to the second part of duodenum. Findings & Specimens: The examined esophagus was normal. The entire examined stomach was normal. Biopsies were taken with a cold forceps for histology. The pathology specimen was placed into Bottle Number 2. The examined duodenum was normal. Biopsies for histology were taken with a cold forceps for evaluation of celiac disease. The pathology specimen was placed into Bottle Number 1. Impression: - Normal esophagus. - Normal stomach. Biopsied. - Normal examined duodenum. Biopsied. Recommendation: - Discharge patient to home (with escort). - Pathology results will be reviewed with appropriate recommendations to follow. - Return to referring physician as previously scheduled. - Patient has a contact number available for emergencies. The signs and symptoms of potential delayed complications were discussed with the patient. Return to normal activities tomorrow. Written discharge instructions were provided to the patient. - Perform a colonoscopy today. Fer Rogers MD 07/13/2024 9:32:01 AM This report has been signed electronically. documented in this encounter Nursing Notes * John Ndiaye RN - 07/13/2024 9:55 AM EST EGD & Colonoscopy completed. Sedated by IRONWORKER FOREMAN. See anesthesia record for VS and medications given. Pt tolerated procedure well with minimal gagging. Abd soft. Airway patent. Pt to recovery on L side with HOB elevated. Report to recovery room nurse. Bedside cleaning done. Specimen(s) and Location(s) verified with physician. documented in this encounter Plan of Treatment Upcoming Encounters Date Type Department Care Team (Late st Contact Info) Description 08/04/2024 10:00 AM EST Nurse Only Hematology/Oncology Treatment, [place] [address] [facility] [place] [address] Park, Chair [address] Hem Onc [facility] [address] [facility] [place] [address] 08/13/2024 11:40 AM EST Office Visit Urogynecology [facility] [address] [address] Shanti Cummings PA-C [address] [place] [address] 08/18/2024 8:00 AM EST Office Visit Family Medicine [address] [place] [phone] MD [address] [place] [address] [place] [phone] 08/18/2024 8:30 AM EST Laboratory Laboratory [address] [place] [phone] [place] [address] 09/02/2024 9:20 AM EST Telemedicine Neurology [address] [place] [phone] Clif Mckeon MD [address] [facility] [place] [id number] 09/15/2024 7:30 AM EDT Laboratory Laboratory [address] [place] [phone] [place] [address] 09/22/2024 2:15 PM EDT Office Visit Hematology/Oncology [facility] Rosario [place] [address] [place] [address] Flaquita Wilson MD [address] [place] [address] 09/22/2024 2:45 PM EDT Nurse Only Hematology/Oncology Treatment, [place] [address] [place] [address] Rosario, Chair 11 Hem On[address] [place] [address] 11/30/2024 9:00 AM EDT Office Visit Sleep Disorders Ctr Jett Belcher, [place] [address] [place] [phone] Silvia Holt CRNP [address] [place] [address] 02/09/2025 9:00 AM EDT Office Visit Family Medicine [address] [phone] Lashawn Mejia MD [address] [place] [address] [place] [address] Pending Results Name Type Priority Associated Diagnoses Date /Time SURGICAL PATHOLOGY Pathology Routine 2024 9:55 AM EST Scheduled Orders Name Type Priority Associated Diagnoses Orde r Schedule SURGICAL PATHOLOGY Pathology Routine One Ti me for 1 Occurrences starting 07/13/2024 until 07/13/2024, 1 completed Scheduled Procedures Name Priority Associated Diagnoses Date/Ti me COLONOSCOPY FLEXIBLE PROXIMA L DIAGNOSTIC Blood in stool, abena 07/13/2024 9:13 AM EST ESOPHAGOGASTRODUODENOSCOPY ( EGD), FLEXIBLE, TRANSORAL, DIAGNOSTIC Blood in stool, abena 07/13/2024 9:13 AM EST Health Maintenance Due Date Last Done [...] 023, 12/14/2020, 10/21/2007 CKD PHOS USE SMARTSET 69602 12/26/202312/06, 01/16/2016, 02/16/2015, Additional history exists HbA1c 12/26/2023 12/25/2022, 070 07/2021, 12/14/2020, Additional history exists COVID-19 Vaccine ( season) 2024 Influenza Vaccine (FLU shot) (#1) 2024 05/14/2010 TSH 03/21/2024 03/21/2023, 080 09/2022, 12/25/2022, Additional history exists GFR 12/06/2024 06/07/2024, 100 10/2023, 03/10/2024, Additional history exists CKD HGB USE SMARTSET 04015 06/07/202506/07, 06/07/2024, 03/10/2024, Additional history exists Lipid [...] this encounter Medical Devices Implanted Type Area Car Rental Manager Device Identifier Shelf Expiration Date Model / Serial / Lot Port Implant W8f Poly Cath - [id number] Implanted:Qty : 1 on 09/05/2023 by Orville Zendejas MD at [facility] Right: Chest CR BARD : PERIPHERAL VASCULAR [id number] 06/05/2024 [id number] / / [id number] documented as of this encounter Procedures Procedure Name Priority Date/Time Associated Diagnosis Comments UPPER GI ENDOSCOPY 07/13/2024 9: 18 AM EST documented in this encounter Results * UPPER GI ENDOSCOPY (07/13/2024 9:18 AM EST) 07/13/2024 9:18 AM EST Narrative Procedure Note Lashawn Mejia MD - 07/13/2024 9:18 AM EST [facility] Patient Name: Lissette Cary Procedure Date: 07/13/2024 9:18 AM Date of : 1965 Admit Type: Outpatient Note Status:Finalized Date of : 1965 Admit Type: Outpatient Age: 59 Room: OR 6 Gender: Female Note Status: Finalized Procedure: Upper GI endoscopy Indications: Iron deficiency anemia Providers: Fer Rogers MD (Doctor) Referring MD: Lashawn Cano Medicines: Propofol per Anesthesia Complications: No immediate complications. Estimated blood loss:None. Procedure: Pre-Anesthesia Assessment: - - Prior to the procedure, a History and Physicalwas performed, patient medications, allergies and sensitivities were reviewed. Thepatient's tolerance of previous anesthesia was reviewed. See [facility] for furtherdetails. - The risks, benefits, and alternatives of theprocedure including the sedation options and risks were discussed with the patient.All questions were answered and informed consent was obtained. - Patient identification and proposed procedurewere verified prior to the procedure by the physician and the nurse. The procedure wasverified in the procedure room. - See [facility] for documentation of the pre-procedureassessment including ASA status. - After I obtained informed consent, the scope wascarefully and meticulously passed under direct vision only when the lumen wasdefinitively identified. CO2 insufflation was utilized throughout the entire procedureexclusively. After obtaining informed consent, the endoscope waspassed under direct vision. All instruments were visually inspected immediatelybefore and after removal from the patient to ensure they are fully intact. Throughoutthe procedure, the patient's blood pressure, pulse, and oxygen saturations weremonitored continuously.The upper GI endoscopy was accomplished without difficulty.The patient tolerated the procedure well. The GIF-Q190 Endoscope ([id number]) wasintroduced through the mouth, and advanced to the second part of duodenum. Findings & Specimens: The examined esophagus was normal. The entire examined stomach was normal. Biopsies were taken with acold forceps for histology. The pathology specimen was placed into Bottle Number 2. The examined duodenum was normal. Biopsies for histology were takenwith a cold forceps for evaluation of celiac disease. The pathology specimen was placed into BottleNumber 1. Impression: - Normal esophagus. - Normal stomach. Biopsied. - Normal examined duodenum. Biopsied. Recommendation: - Discharge patient to home (with escort). - Pathology results will be reviewed withappropriate recommendations to follow. - Return to referring physician as previouslyscheduled. - [facility] The signs and symptoms of potential delayed complications were discussed withthe patient. Return to normal activities tomorrow. Written discharge instructionswere provided to the patient. - Perform a colonoscopy today. Fer Rogers MD 07/13/2024 9:32:01 AM This report has been signed electronically. Lashawn Cano MD GASTRO UPPER Fi nal Result documented in this encounter Administered Medications Inactive Administered Medications - up to 3 most recent administrations Medication Order MAR Action Action Date Dose Rate Site Isolyte-S pH 7.4 infusion Intravenous, at 10 mL/hr, Plasma-LYTE 148, isolyte-S, and isolyte-S pH 7.4 are considered equivalent - including for MAR barcode scanning., CONTINUOUS, Starting on Fri07/13/24 at 0930, Until Fri07/13/24 at 1459 Restarted 07/13/2024 9:29 AM EST Continue from Pre-Op 07/13/2024 9:21 AM EST 10 mL/hr New Bag 07/13/2024 8:51 AM EST 10 mL/hr documented in this encounter Active and Recently Administered Medications Times are shown in EST. Continuous Medication Order 07/11/2024 07/12/2024 07/13/2024 Isolyte-S pH 7.4 infusion Intravenous, at 10 mL/hr, Plasma-LYTE 148, isolyte-S, and isolyte-S pH 7.4 are considered equivalent - including for MAR barcode scanning., CONTINUOUS, Starting on Fri07/13/24 at 0930, Until Fri07/13/24 at 1459 0851 (New Bag - Prov ider: Marilin Peralta RN)0921 (Continue from Pre-Op - Provider: Brina Magana CRNA)0928 (Paused - Provider: Brina Magana CRNA - Comment: Switch to gravity)0929 (Restarted - Provider: Brina Magana CRNA)1001 (Anes Intra-Op Fluid - Provider: Ashanti Reno CRNA) documented in this encounter Advance Directives * Full Code (Latest Code Status on File) Date Activated Date Inactivated Comments 02/19/2022 1:10 PM 02/19/2022 8:22 PM This order r eflects the patients wishes and were consensually agreed upon. Question Answer Comments Discussion of Advance Directives occurred with: Not Discussed Care Teams Hedis Abstractor Relationship Specialty Start Date End Date Lashawn Mejia MD [address] [place] [address] [place] [id number] PCP - General Family Medicine 09/22/20 documented as of this encounter
--- OUTSIDE RECORDS SUMMARY | 2024-10-01 03:32 | External Medical Summary | Summary of Care ---
Author Name Unknown Organization [facility] Address [address] [place] [address] Phone [phone] Care Team Providers Care Supervisor Coremaker Name Role Phone Lashawn Mejia MD Primary Care Prov ider Encounter Details Date Type Department Care Team (Late st Contact Info) Description 07/21/2024 Telephone [facility] Gastroenterology [address] [facility] [place] [address] Fer Rogers MD [address] [place] [address] Allergies Active Allergy Reactions Criticality Noted Date Comments Gabapentin Neuro complications (Please comment),Tachycardia 02/06/2023 Hallucinations documented as of this encounter (statuses as of 07/21/2024) Medications Lisinopril 5 MG Oral Tablet (Prinivil)Indicati [...] bedtime. 12 Suppository 3 07/21/19 25 Active documented as of this encounter (statuses as of 07/21/2024) Active Problems Problem Noted Date Diagnosed Date Encounter for antineoplastic chemotherapy 2023 Vulvar irritation 05/12/2023 Overview (05/12/2023): BIOPSY (05/06/2023) -- BENIGN A. Skin, right vulva, biopsy: Benign mature sebaceous glands with minimal inflammation. Negative for dysplasia and malignancy. Comment: The findings are non-specific, although sebaceous hyperplasia was considered. Clinical correlation is required to determine if the biopsy if front office representative. B. 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 [address] [place] [address] Shanti Cummings PA-C [address] [place] [address] 08/18/2024 8:00 AM EST Office Visit Family Medicine [address] [place] [phone] MD [address] [place] [address] [place] [phone] 08/18/2024 8:30 AM EST Laboratory Laboratory [address] [place] [phone] [place] [address] 09/02/2024 9:20 AM EST Telemedicine Neurology [address] [place] [address] Clif Mckeon MD [address] [facility] [place], [place] [address] 09/15/2024 7:30 AM EDT Laboratory Laboratory [address] [place] [phone] [place] [address] 09/22/2024 2:15 PM EDT Office Visit Hematology/Oncology [facility] [place] [address] [facility] [place] [address] Flaquita Wilson MD 200 [facility] [place] [address] 09/22/2024 2:45 PM EDT Nurse Only Hematology/Oncology Treatment, [place] [address] [facility] [address] [address] [place] [address] Rosario, Chair 11 Hem Onc [facility] [address] [facility] [place] [address] 11/30/2024 9:00 AM EDT Office Visit Sleep Disorders Ctr [facility] [place] 132 [place] [phone] Silvia Holt CRNP 132 [place] [address] 02/09/2025 9:00 AM EDT Office Visit Family Medicine [address] [place] [phone] Lashawn Mejia MD [address] [place] [address] [place] [address] Scheduled Orders Name Type Priority Associated Diagnoses Orde r Schedule FLEX SIG Gastro Lower Routine Endometrial cancer (HCC) Ordered: 07/21/2024 Health Maintenance Due Date Last Done Comments [...] 023, 12/14/2020, 10/21/2007 CKD PHOS USE SMARTSET 98532 12/26/20232 07/2022, 01/16/2016, 02/16/2015, Additional history exists HbA1c 12/26/2023 12/25/2022, 07/0 07/2021, 12/14/2020, Additional history exists COVID-19 Vaccine ( season) 2024 Influenza Vaccine (FLU shot) (#1) 2024 05/14/2010 TSH 03/21/2024 03/21/2023, 08/0 09/2022, 12/25/2022, Additional history exists GFR 12/06/2024 06/07/2024, 10/0 10/2023, 03/10/2024, Additional history exists CKD HGB USE SMARTSET 33303 06/07/202506/07, 06/07/2024, 03/10/2024, Additional history exists Lipid [...] this encounter Medical Devices Implanted Type Area Mine Engineer Device Identifier Shelf Expiration Date Model / Serial / Lot Port Implant W8f Poly Cath - [id number] Implanted:Qty : 1 on 09/05/2023 by Orville Zendejas MD at [facility] Right: Chest CR BARD : PERIPHERAL VASCULAR [id number] 06/05/2024 [id number] / / [id number] documented as of this encounter Visit Diagnoses [...] Directives occurred with: Not Discussed Care Teams Supervisor Coremaker Relationship Specialty Start Date End Date Lashawn Mejia MD [address] [place] [address] [place] [phone] PCP - General Family Medicine 09/22/20 documented as of this encounter
--- OUTSIDE RECORDS SUMMARY | 2024-10-01 03:32 | External Medical Summary | Summary of Care ---
Author Name Unknown Organization [facility] Address [address] [place] [address] Phone [phone] Care Team Providers Care Small Lot Operator Name Role Phone Lashawn Mejia MD Primary Care Prov ider Reason for Visit * Reason Comments NEW PATIENT * Evaluate & Treat - Unlimited Visits (Within 10 days (routine)) - Authorized Specialty Diagnoses / Procedures Referred By Radha santana Referred To Contact Urology Diagnoses Hematuria, microscopic Shanti Cummings PA-C [address] [place] [address] Phone: tel: fax: Referral ID Status Reason Start Date Expiration Date Visits Requested Visits Authorized [id number] Authorized Specialty Services Required [phone] Encounter Details Date Type Department Care Team (Late st Contact Info) Description 07/09/2024 1:00 PM EST Office Visit Urology Elana Galicia [address] [place] [address] [place] [address] Cee Henley PA-C [address] [place] [address] Microhematuria* Allergies Active Allergy Reactions Criticality Noted Date Comments Gabapentin Neuro complications (Please comment),Tachycardia 02/06/2023 Hallucinations documented as of this encounter (statuses as of 07/10/2024) Medications Lisinopril 5 MG Oral Tablet (Prinivil)Indicati ons:HTN, goal below 140/90 Take by mouth 1 Tablet in the morning. 90 Tablet 1 12/19/19 23 Active dexAMETHasone 4 MG Oral TabletIndications: Endometrial cancer (HCC) Take 5 tab (20 mg) 12 and 6 hours before chemo 60 Tablet 08/26/19 Active Additional Information Patient not [...] for Pain, Moderate. 60 Tablet 01/27/20 24 Active Additional Information Patient not taking.Reported [...] May 06, 2024. 30 Capsule 5 05/06/20 Active clonazePAM 0.5 MG Oral Tablet (KlonoPIN)Indicati ons:RLS (restless legs syndrome) Take 1-2 tablets per mouth at bedtime. 60 Tablet 2 04/29/20 Active oxyBUTYnin Chloride ER 5 MG Oral Tablet Extended Release 24 Hour (Ditropan XL) Take 1 Tablet by mouth in the morning. 30 Tablet 11 07/01/20 Active documented as of this encounter (statuses as of 07/10/2024) Active Problems Problem Noted Date Diagnosed Date Encounter for antineoplastic chemotherapy 2023 Vulvar irritation 05/12/2023 Overview (05/12/2023): BIOPSY (05/06/2023) -- BENIGN A. Skin, right vulva, biopsy: Benign mature sebaceous glands with minimal inflammation. Negative for dysplasia and malignancy. Comment: The findings are non-specific, although sebaceous hyperplasia was considered. Clinical correlation is required to determine if the biopsy if installation service representative. B. Skin, left vulva, biopsy: [...] as of this encounter (statuses as of 07/10/2024) Resolved Problems Problem Noted Date Diagnosed Date [...] as of this encounter (statuses as of 07/10/2024) Immunizations Name Administration Dates Next Due Seasonal [...] on file documented as of this encounter Nursing Notes * Abby Bermudez LPN - 07/09/2024 12:23 PM EST New patient presents for microscopic hematuria. Seen by UroGyn once for urinary incontinence. States she had a hysterectomy two years ago and still experiences vaginal bleeding. UroGyn concerned thisis coming from bladder versus vaginal. States when she wipes she sees blood, noticed blood clots. States she gets the urge to void, tries and doesn't get much output. Voids 4-5 times a night. Startedon Oxytbuynin recently. Has helped with the incontinence. documented in this encounter Plan of Treatment Upcoming Encounters Date Type Department Care Team (Latest Contact Info) Description 07/13/2024 12:34 PM EST Hospital Encounter OR [facility], Operating Room, [facility] - 4th Floor [address] [place] [phone] Fer [facility] [place] [address] 07/13/2024 12:34 PM EST - 07/13/2024 1:27 PM EST Surgery OR [facility], Operating Room, [facility] - 4th Floor [address] [place] [phone] Fer Rogers MD [address] [place] [address] COLONOSCOPY FLEXIBLE PROXIMAL DIAGNOSTIC 08/04/2024 10:00 AM EST Nurse Only Hematology/Oncolog y Treatment, [place] [address] [place] [address] Rosario, Chair 11 Hem Onc [facility] [address] [facility] [address] 08/13/2024 11:40 AM EST Office Visit Urogynecology [facility] [address] [place] [address] Shanti Cummings PA-C [address] [place] [address] 08/18/2024 8:00 AM EST Office Visit Family Medicine [address] [phone] MD [address] [place] [address] [place] [phone] 08/18/2024 8:30 AM EST Laboratory Laboratory [address] [place] [phone] [place] [address] 09/02/2024 9:20 AM EST Telemedicine Neurology [address] [place] [phone] Clif Mckeon MD 100 [address] [facility] [place] [address] 09/15/2024 7:30 AM EDT Laboratory Laboratory [address] [place] [phone] [place], Lab [address] [place] [address] 09/22/2024 2:15 PM EDT Office Visit Hematology/Oncolog y [facility]ery [place] [address] [place] [address] Flaquita Wilson MD [address] [place] [address] 09/22/2024 2:45 PM EDT Nurse Only Hematology/Oncolog y Treatment, [place] [address] [place] [address] Rosario, Chair 11 Hem Onc Scenery [address] [place] [address] 11/30/2024 9:00 AM EDT Office Visit [facility] Disorders Ctr [facility] [place] [facility] [place] [address] Silvia Holt CRNP [facility] [place] [address] 02/09/2025 9:00 AM EDT Office Visit Family Medicine [address] [place] [phone] Lashawn Mejia MD [address] [place] [address] [place] [address] Scheduled Procedures Name Priority Associated Diagnoses Date/Ti me COLONOSCOPY FLEXIBLE PROXIMA L DIAGNOSTIC Blood in stool, abena 07/13/2024 12:34 PM EST ESOPHAGOGASTRODUODENOSCOPY ( EGD), FLEXIBLE, TRANSORAL, DIAGNOSTIC Blood in stool, abena 07/13/2024 12:34 PM EST Scheduled Referrals Name Type Priority Associated Diagnoses Orde r Schedule ADULT/PEDS UROLOGY REFERRAL OP Referral Within 10 days (routine) Hematuria, microscopic Ordered: 07/01/2024 Health Maintenance Due Date Last Done Comments [...] 023, 12/14/2020, 10/21/2007 CKD PHOS USE SMARTSET 43038 12/26/2023 06/2 07/2022, 01/16/2016, 02/16/2015, Additional history exists HbA1c 12/26/2023 12/25/2022, 07/0 07/2021, 12/14/2020, Additional history exists COVID-19 Vaccine ( season) 2024 Influenza Vaccine (FLU shot) (#1) 2024 05/14/2010 TSH 03/21/2024 03/21/2023, 08/0 09/2022, 12/25/2022, Additional history exists GFR 12/06/2024 06/07/2024, 10/0 10/2023, 03/10/2024, Additional history exists CKD HGB USE SMARTSET 79624 06/07/202506/07, 06/07/2024, 03/10/2024, Additional history exists Lipid [...] this encounter Medical Devices Implanted Type Area Distilling Department Supervisor Device Identifier Shelf Expiration Date Model / Serial / Lot Port Implant W8f Poly Cath - [id number] Implanted:Qty : 1 on 09/05/2023 by Orville Zendejas MD at [facility] Right: Chest CR BARD : PERIPHERAL VASCULAR [id number] 06/05/2024 [id number] / / [id number] documented as of this encounter Visit Diagnoses Diagnosis Microhematuria- Primary Microscopic hematuria Blood in stool, abena Blood in stool documented in this encounter Advance Directives * Full Code (Latest Code Status on File) Date Activated Date Inactivated Comments 02/19/2022 1:10 PM 02/19/2022 8:22 PM This order r eflects the patients wishes and were consensually agreed upon. Question Answer Comments Discussion of Advance Directives occurred with: Not Discussed Care Teams Small Lot Operator Relationship Specialty Start Date End Date Lashawn Mejia MD [address] [place] [address] [place] [address] PCP - General Family Medicine 09/22/20 documented as of this encounter
--- OUTSIDE RECORDS SUMMARY | 2024-10-01 03:32 | External Medical Summary | Summary of Care ---
Author Name Unknown Organization [facility] Address [address] [place] [address] Phone [phone] Care Team Providers Care Messenger Floorperson Name Role Phone Lashawn Mejia MD Primary Care Prov ider Reason for Visit * Reason Comments eRx-Medication Refill Encounter Details Date Type Department Care Team (Late st Contact Info) Description 07/29/2024 Refill Family Medicine [address] [phone] Lashawn Mejia MD [address] [place] [address] Restless legs syndrome Allergies Active Allergy Reactions Criticality Noted Date Comments Gabapentin Neuro complications (Please comment),Tachycardia 02/06/2023 Hallucinations documented as of this encounter (statuses as of 07/29/2024) Medications Lisinopril 5 MG Oral Tablet (Prinivil)Indicat ions:HTN, goal below 140/90 Take by mouth 1 Tablet in the morning. 90 Tablet 1 023 Active dexAMETHasone 4 MG Oral TabletIndications :Endometrial cancer (HCC) Take 5 tab (20 mg) 12 and 6 hours before chemo 60 Tablet 024 Active Additional Information Patient not taking.Reported on 07/13/2024 Ondansetron HCl 8 MG Oral TabletIndications :Endometrial [...] 06, 2024. 30 Capsule 5 024 Active clonazePAM 0.5 MG Oral Tablet (KlonoPIN)Indicat ions:RLS (restless legs syndrome) Take 1-2 tablets per mouth at bedtime. 60 Tablet 2 024 Active oxyBUTYnin Chloride ER 5 MG Oral Tablet Extended Release 24 Hour (Ditropan XL) Take 1 Tablet by mouth in the morning. 30 Tablet 11 024 Active Hydrocortisone Acetate 25 MG Rectal Suppository (Anusol HC) Administer 1 Suppository into the rectum at bedtime. 12 Suppository 3 025 Active rOPINIRole HCl 3 MG Oral TabletIndications :Restless legs syndrome Take 1 Tablet by mouth in the morning and 1 Tablet at noon and 1 Tablet in the evening and 1 Tablet before bedtime. 120 Tablet 3 025 Active rOPINIRole HCl 3 MG Oral TabletIndications :Restless legs syndrome Take 1 Tablet by mouth in the morning and 1 Tablet at noon and 1 Tablet in the evening and 1 Tablet before bedtime. 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 Authorizing Provider: LASHAWN MEJIA * Telephone Encounter - Nafisa Corona RP - 07/29/2024 12:05 PM ESTPending Prescriptions: Disp Refills rOPINIRole HCl 3 MG Oral Tablet [Pharmacy *120 Ta*3 Sig: Take 1 Tablet by mouth in the morning and 1 Tablet at noon and 1 Tablet in the evening and 1 Tablet before bedtime. * Telephone Encounter - Nafisa Corona RPh - 07/29/2024 12:02 PM EST [facility] is currently not authorized to approve refills for the pended medication(s) per refill protocol. Please approve if appropriate. Thank you, Nafisa Corona, PharmD Clinical Pharmacist [facility] ([facility]) 07/29/24 12:02 PM [phone] documented in this encounter Plan of Treatment Upcoming Encounters Date Type Department Care Team (Latest Contact Info) Description 08/04/2024 10:00 AM EST Nurse Only Hematology/Oncolog y Treatment, [place] [address] [place] [phone] Rosario, Chair 11 Hem Onc Scenery [address] [place] [address] 08/11/2024 11:30 AM EST Office Visit Gynecology/Oncolog y, [place] [address] [place] [address] Keegan Triplett MD [address] [place] [address] 08/13/2024 11:40 AM EST Office Visit Urogynecology [facility] [address] [place] [phone] Shanti Cummings PA-C [address] [facility] [place] [address] 08/18/2024 8:00 AM EST Office Visit Family Medicine [address] [phone] MD [address] [place] [address] [place] [phone] 08/18/2024 8:30 AM EST Laboratory Laboratory [address] [place] [address] [facility] Lab [address] [place] [address] 09/02/2024 9:20 AM EST Telemedicine Neurology [address] [place] [address] Clif Mckeon MD 100 [address] [facility] [place] [address] 09/15/2024 7:30 AM EDT Laboratory Laboratory [address] [place] [phone] [place], [address] [place] [address] 09/16/2024 2:30 PM EDT Hospital Encounter OR [facility], Operating Room, [facility] - 4th Floor [address] [place] [phone] Anabella Alberto DO [address] [place] [address] 09/16/2024 2:30 PM EDT - 09/16/2024 3:00 PM EDT Surgery OR [facility], Operating Room, [facility] - 4th Floor [address] [place] [phone] Anabella Alberto DO [address] [place] [address] SIGMOIDOSCOPY FLEXIBLE DIAGNOSTIC 09/22/2024 2:15 PM EDT Office Visit Hematology/Oncolog y [facility] Rosario [place] [address] [place] [address] Flaquita Wilson MD [address] [place] [address] 09/22/2024 2:45 PM EDT Nurse Only Hematology/Oncolog y [place], [place] [address] [place] [address] Rosario, Chair 11 Hem Onc Scenery [address] [place] [address] 11/30/2024 9:00 AM EDT Office Visit Sleep Disorders Ctr Jett Belcher [place] [address] [place] [phone] Silvia Holt CRNP [address] [place] [address] 02/09/2025 9:00 AM EDT Office Visit Family Medicine [address] [place] [phone] Lashawn Mejia MD [address] [place] [address] [place] [address] Scheduled Procedures Name Priority Associated Diagnoses Date/Ti me SIGMOIDOSCOPY FLEXIBLE DIAGNOSTIC Endometrial cancer (HCC) 09/16/2024 2:30 PM EDT Health Maintenance Due Date Last [...] 023, 12/14/2020, 10/21/2007 CKD PHOS USE SMARTSET 09942 12/26/2023/07/2022, 01/16/2016, 02/16/2015, Additional history exists HbA1c 12/26/2023 12/25/2022, 07/0 07/2021, 12/14/2020, Additional history exists COVID-19 Vaccine ( season) 2024 Influenza Vaccine (FLU shot) (#1) 2024 05/14/2010 TSH 03/21/2024 03/21/2023, 09/2022, 12/25/2022, Additional history exists GFR 12/06/2024 06/07/2024, 100 10/2023, 03/10/2024, Additional history exists CKD HGB USE SMARTSET 96944 06/07/202506/07, 06/07/2024, 03/10/2024, Additional history exists Lipid [...] this encounter Medical Devices Implanted Type Area Candy Cutter Machine Device Identifier Shelf Expiration Date Model / Serial / Lot Port Implant W8f Poly Cath - [id number] Implanted:Qty : 1 on 09/05/2023 by Orville Zendejas MD at [facility] Right: Chest CR BARD : PERIPHERAL VASCULAR [id number] 06/05/2024 [id number] / / [id number] documented as of this encounter Visit Diagnoses [...] Directives occurred with: Not Discussed Care Teams Messenger Floorperson Relationship Specialty Start Date End Date Lashawn Mejia MD [address] [place] [address] [place] [phone] PCP - General Family Medicine 09/22/20 documented as of this encounter
--- OUTSIDE RECORDS SUMMARY | 2024-10-01 03:32 | External Medical Summary | Summary of Care ---
Author Name Unknown Organization [facility] Address [address] [place] [address] Phone [phone] Care Team Providers Care Syrup Mixer Assistant Name Role Phone Lashawn Mejia MD Primary Care Prov ider Encounter Details Date Type Department Care Team (Late st Contact Info) Description 07/21/2024 Telephone [facility] Gastroenterology [address] [facility] [place] [address] Fer Rogers MD [address] [place] [address] Allergies Active Allergy Reactions Criticality Noted Date Comments Gabapentin Neuro complications (Please comment),Tachycardia 02/06/2023 Hallucinations documented as of this encounter (statuses as of 07/22/2024) Medications Lisinopril 5 MG Oral Tablet (Prinivil)Indicati [...] as of this encounter (statuses as of 07/22/2024) Active Problems Problem Noted Date Diagnosed Date Encounter for antineoplastic chemotherapy 2023 Vulvar irritation 05/12/2023 Overview (05/12/2023): BIOPSY (05/06/2023) -- BENIGN A. Skin, right vulva, biopsy: Benign mature sebaceous glands with minimal inflammation. Negative for dysplasia and malignancy. Comment: The findings are non-specific, although sebaceous hyperplasia was considered. Clinical correlation is required to determine if the biopsy if independent sales representative. B. 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 Alberto. What kind of prep [...] 10:00 AM EST Nurse Only Hematology/Oncology Treatment, [place] [address] [place] [address] Rosario, Chair 11 Hem Onc Scen[address] [place] [address] 08/13/2024 11:40 AM EST Office Visit Urogynecology [address] [place] [address] Shanti Cummings PA-C [address] [place] [address] 08/18/2024 8:00 AM EST Office Visit Family Medicine [address] [place] [phone] MD [address] [place] [address] [place] [phone] 08/18/2024 8:30 AM EST Laboratory Laboratory [address] [place] [phone] [place] [address] 09/02/2024 9:20 AM EST Telemedicine Neurology T[address] [place] [phone] Clif Mckeon MD [address] [facility] [place] [phone] 09/15/2024 7:30 AM EDT Laboratory Laboratory [address] [place] [phone] [place] [address] 09/22/2024 2:15 PM EDT Office Visit Hematology/Oncology [facility] [place] [address] [place] [address] Flaquita Wilson MD [address] [place] [address] 09/22/2024 2:45 PM EDT Nurse Only Hematology/Oncology Treatment, [place] [address] [place] [address] Rosario, Chair 11 Hem Onc [facility] [address] [place] [address] 11/30/2024 9:00 AM EDT Office Visit Sleep Disorders Ctr Jett Belcher [place] [address] [place] [phone] Silvia Holt CRNP [address] [place] [address] 02/09/2025 9:00 AM EDT Office Visit Family Medicine [address] [phone] Lashawn Mejia MD [address] [place] [address] [place] [address] Scheduled Orders Name Type Priority Associated Diagnoses [...] 023, 12/14/2020, 10/21/2007 CKD PHOS USE SMARTSET 49970 12/26/2023/2 07/2022, 01/16/2016, 02/16/2015, Additional history exists HbA1c 12/26/2023 12/25/2022, 07/0 07/2021, 12/14/2020, Additional history exists COVID-19 Vaccine ( season) 2024 Influenza Vaccine (FLU shot) (#1) 2024 05/14/2010 TSH 03/21/2024 03/21/2023, 09/2022, 12/25/2022, Additional history exists GFR 12/06/2024 06/07/2024, 1010/2023, 03/10/2024, Additional history exists CKD HGB USE SMARTSET 32410 06/07/202506/07, 06/07/2024, 03/10/2024, Additional history exists Lipid [...] this encounter Medical Devices Implanted Type Area Hotel Engineer Device Identifier Shelf Expiration Date Model / Serial / Lot Port Implant W8f Poly Cath - [id number] Implanted:Qty : 1 on 09/05/2023 by Orville Zendejas MD at [facility] Right: Chest CR BARD : PERIPHERAL VASCULAR [id number] 06/05/2024 [id number] / / [id number] documented as of this encounter Visit Diagnoses [...] Directives occurred with: Not Discussed Care Teams Syrup Mixer Assistant Relationship Specialty Start Date End Date Lashawn Mejia MD [address] [place] [address] [place] [address] PCP - General Family Medicine 09/22/20 documented as of this encounter
--- OUTSIDE RECORDS SUMMARY | 2024-10-01 03:32 | External Medical Summary ---
Author Name Unknown Address Unknown Organization [id number]:[facility] - [address] [place] [address] Laboratory Report Ordering Provider Test Date Status MEÑO QUAN 08/04/2024 10:13:17 Final Observation Date Value Abnormality Reference (Units ) Status Iron 08/04/2024 10:13:17 21 Below low normal 33-151 (ug/dL) Final Iron-binding capacity 08/04/2024 10:13:17 282 250-425 (ug/dL) Final Transferrin Sat % 08/04/2024 10:13:17 7 Below low normal 15-55 (%) Final Performing Location [facility] - [address] [place] [address]
--- OUTSIDE RECORDS SUMMARY | 2024-10-01 03:32 | External Medical Summary ---
Author Name Unknown Address Unknown Organization K09:[facility] [place] [address] Laboratory Report Ordering Provider Test Date Status MEÑO QUAN 08/04/2024 10:13:17 Final Observation Date Value Abnormality Reference (Units ) Status SYNC LEUKOCYTES IN BLOOD BY AUTOMATED COUNT 08/04/2024 10:13:17 8.43 4.00-10.80 (K/uL) Final Segs 08/04/2024 10:13:17 84.9 Above high normal 40.0-75.0 (%) Final Lymphs % 08/04/2024 10:13:17 5.7 Below low normal 18.0-42.0 (%) Final Monos 08/04/2024 10:13:17 7.2 1.0-11.0 (%) Final Eosinophils 08/04/2024 10:13:17 2.0 0.0-6.0 (%) Final Basos 08/04/2024 10:13:17 0.2 0.0-2.0 (%) Final Absolute Segs 08/04/2024 10:13:17 7.15 1.80-7.70 (K/uL) Final Lymphs, absolute 08/04/2024 10:13:17 0.48 Below low normal 1.00-4.80 (K/ul) Final Monos, Abs 08/04/2024 10:13:17 0.61 0.00-1.10 (K/uL) Final Eos, Abs 08/04/2024 10:13:17 0.17 0.00-0.70 (K/uL) Final Basos, Abs 08/04/2024 10:13:17 0.02 0.00-0.20 (K/uL) Final Performing Location [facility] [place] [address]
--- OUTSIDE RECORDS SUMMARY | 2024-10-01 03:32 | External Medical Summary | Summary of Care ---
Author Name Unknown Organization [facility] Address [address] [place] [address] Phone [phone] Care Team Providers Care Snack Bar Cook Name Role Phone Lashawn Mejia MD Primary Care Prov ider Reason for Referral * Evaluate & Treat - Unlimited Visits (Within 10 days (routine)) - Authorized Specialty Diagnoses / Procedures Referred By Radha santana Referred To Contact Urology Diagnoses Hematuria, microscopic Shanti Cummings PA-C [address] [place] [address] Phone: tel: fax: Referral ID Status Reason Start Date Expiration Date Visits Requested Visits Authorized [id number] Authorized Specialty Services Required 4 [phone] Question Answer Referral Priority Within 10 days (routine) Where should this appointment be scheduled? [facility] What is the patient being referred for? Hematuria What is Hematuria condition? Microscopic Encounter Details Date Type Department Care Team (Late st Contact Info) Description 07/01/2024 Orders Only Urogynecology Alicia Belcher [address] [place] [address] Shanti Cummings PA-C [address] [place] [address] Hematuria, microscopic* Allergies Active Allergy Reactions Criticality Noted Date Comments Gabapentin Neuro complications (Please comment),Tachycardia 02/06/2023 Hallucinations documented as of this encounter (statuses as of 07/01/2024) Medications Lisinopril 5 MG Oral Tablet (Prinivil)Indicati [...] Tablet before bedtime. 120 Tablet 3 04/20/20 Active buPROPion HCl ER (XL) 150 MG Oral Tablet Extended Release 24 Hour (Wellbutrin XL) Take 1 Tablet by mouth in the morning. 30 Tablet 5 04/28/20 Active Additional Information Patient not taking.Reported on [...] as of this encounter (statuses as of 07/01/2024) Active Problems Problem Noted Date Diagnosed Date Encounter for antineoplastic chemotherapy 2023 Vulvar irritation 05/12/2023 Overview (05/12/2023): BIOPSY (05/06/2023) -- BENIGN A. Skin, right vulva, biopsy: Benign mature sebaceous glands with minimal inflammation. Negative for dysplasia and malignancy. Comment: The findings are non-specific, although sebaceous hyperplasia was considered. Clinical correlation is required to determine if the biopsy if pharmaceutical service representative. B. Skin, left vulva, biopsy: [...] IA(cT1a, cN0(sn), cM0) - Signed by Keegan Tripeltt MD on 02/22/2022 Moderate episode of recurrent [...] as of this encounter (statuses as of 07/01/2024) Resolved Problems Problem Noted Date Diagnosed Date [...] as of this encounter (statuses as of 07/01/2024) Immunizations Name Administration Dates Next Due Seasonal [...] AM EST Nurse Only Hematology/Oncolog y Treatment, [place] [address] [place] [address] Rosario, Chair 11 Hem Onc [address] [place] [address] 08/13/2024 11:40 AM EST Office Visit Urogynecology [facility] [address] [place] [address] Shanti Cummigns PA-C [address] [place] [address] 09/02/2024 9:20 AM EST Telemedicine Neurology Titi [address] [place], [place] [phone] Clif Mckeon MD [address] [facility] [place] [address] 09/15/2024 7:30 AM EDT Laboratory Laboratory [address] [place] [address] [place], [address] [place] [address] 09/22/2024 2:15 PM EDT Office Visit Hematology/Oncolog y Scenery Rosario [place] [address] [place] [address] Flaquita Wilson MD [address] [place] [address] 09/22/2024 2:45 PM EDT Nurse Only Hematology/Oncolog y Treatment, [place] [address] [place] [address] Rosario, Chair 11 Hem Onc Scenery [address] [place] [address] 10/11/2024 11:02 AM EDT Hospital Encounter OR [facility], Operating Room, [facility] - 4th Floor [address] [place] [phone] Pillo Wilder, DO [address] [place] [address] 10/11/2024 11:02 AM EDT - 10/11/2024 11:43 AM EDT Surgery OR [facility], Operating Room, [facility] - 4th Floor [address] [place] [address] Pillo Wilder, DO [address] [place] [address] COLONOSCOPY FLEXIBLE PROXIMAL DIAGNOSTIC 11/30/2024 9:00 AM EDT Office Visit Sleep Disorders Ctr [facility] [address] [place] [address] Silvia Holt CRNP [address] [place] [address] Scheduled Procedures Name Priority Associated Diagnoses Date/Ti me COLONOSCOPY FLEXIBLE PROXIMAL DIAGNOSTIC Blood in stool, abena 10/11/2024 11:02 AM EDT Scheduled Referrals Name Type Priority Associated [...] 023, 12/14/2020, 10/21/2007 CKD PHOS USE SMARTSET 95132 12/26/2023 06/2 07/2022, 01/16/2016, 02/16/2015, Additional history exists HbA1c 12/26/2023 12/25/2022, 07/0 07/2021, 12/14/2020, Additional history exists COVID-19 Vaccine ( season) 2024 Influenza Vaccine (FLU shot) (#1) 2024 05/14/2010 TSH 03/21/2024 03/21/2023, 08/0 09/2022, 12/25/2022, Additional history exists GFR 12/06/2024 06/07/2024, 10 10/2023, 03/10/2024, Additional history exists CKD HGB USE SMARTSET 66218 06/07/202506/07, 06/07/2024, 03/10/2024, Additional history exists Lipid [...] this encounter Medical Devices Implanted Type Area Adobe Layer Device Identifier Shelf Expiration Date Model / Serial / Lot Port Implant W8f Poly Cath - [id number] Implanted:Qty : 1 on 09/05/2023 by Orville Zendejas MD at [facility] Right: Chest CR BARD : PERIPHERAL VASCULAR [id number] 06/05/2024 [id number] / / [id number] documented as of this encounter Visit Diagnoses Diagnosis Hematuria, microscopic- Primary Microscopic hematuria Blood in stool, abena Blood in stool documented in this encounter Advance Directives * Full Code (Latest Code Status on File) Date Activated Date Inactivated Comments 02/19/2022 1:10 PM 02/19/2022 8:22 PM This order r eflects the patients wishes and were consensually agreed upon. Question Answer Comments Discussion of Advance Directives occurred with: Not Discussed Care Teams Snack Bar Cook Relationship Specialty Start Date End Date Lashawn Mejia MD [address] [place] [address] [place] [phone] PCP - General Family Medicine 09/22/20 documented as of this encounter
--- OUTSIDE RECORDS SUMMARY | 2024-10-01 03:32 | External Medical Summary ---
Author Name Unknown Address Unknown Organization K09:[facility] [place] [address] Laboratory Report Ordering Provider Test Date Status MEÑO QUAN 08/04/2024 10:13:17 Final Observation Date Value Abnormality Reference (Units ) Status WBC, Total 08/04/2024 10:13:17 8.43 4.00-10.8 0 (K/uL) Final RBC 08/04/2024 10:13:17 3.40 3.85-5.15 (M/uL) Final Hemoglobin 08/04/2024 10:13:17 9.4 Below low normal 12 .0-15.3 (g/dL) Final HCT 08/04/2024 10:13:17 30.1 Below low normal 36. 0-45.2 (%) Final MCV 08/04/2024 10:13:17 88.5 81.5-97.5 (fL) Final MCH 08/04/2024 10:13:17 27.6 27.0-34.0 (pg) Final MCHC 08/04/2024 10:13:17 31.2 32.0-36.0 (g/dL) Final RDW 08/04/2024 10:13:17 15.2 11.5-15.5 (%) Final Platelets 08/04/2024 10:13:17 389 140-400 (K /uL) Final MPV 08/04/2024 10:13:17 8.0 6.6-11.1 ( fL) Final Performing Location [facility] [place] [address]
--- OUTSIDE RECORDS SUMMARY | 2024-10-01 03:32 | External Medical Summary | Summary of Care ---
Author Name Unknown Organization [facility] Address [address] [place] [address] Phone [phone] Care Team Providers Care Reconcilement Clerk Name Role Phone Lashawn Mejia MD Primary Care Prov ider Encounter Details Date Type Department Care Team (Late st Contact Info) Description 07/21/[address] [facility] Gastroenterology [address] [facility] [place] [address] Fer Rogers MD [address] [place] [address] Allergies Active Allergy Reactions Criticality Noted Date Comments Gabapentin Neuro complications (Please comment),Tachycardia 02/06/2023 Hallucinations documented as of this encounter (statuses as of 08/05/2024) Medications Lisinopril 5 MG Oral Tablet (Prinivil)Indicat [...] as of this encounter (statuses as of 08/05/2024) Active Problems Problem Noted Date Diagnosed Date Encounter for antineoplastic chemotherapy 2023 Vulvar irritation 05/12/2023 Overview (05/12/2023): BIOPSY (05/06/2023) -- BENIGN A. Skin, right vulva, biopsy: Benign mature sebaceous glands with minimal inflammation. Negative for dysplasia and malignancy. Comment: The findings are non-specific, although sebaceous hyperplasia was considered. Clinical correlation is required to determine if the biopsy if digital media representative. B. Skin, left vulva, biopsy: Mild [...] as of this encounter (statuses as of 08/05/2024) Resolved Problems Problem Noted Date Diagnosed Date [...] as of this encounter (statuses as of 08/05/2024) Immunizations Name Administration Dates Next Due Seasonal [...] spoke to ptdes'sariah flex sig 09/16/[address] [facility] with Dr. Alberto. What kind of prep [...] Department Care Team (Latest Contact Info) Description 08/11/2024 11:30 AM EST Office Visit Gynecology/Oncolog y, [place] [address] [place] [address] Keegan Triplett MD [address] [place] [address] 08/12/2024 8:30 AM EST Imaging Radiology [address], [place] [address] [place] [address] 08/18/2024 8:00 AM EST Office Visit Family Medicine [address] [place] [address] MD [address] [place] [address] [place] [address] 08/18/2024 8:30 AM EST Laboratory Laboratory [address] [place] [address] [place] [address] 09/02/2024 9:20 AM EST Telemedicine Neurology [place] [address] [place] [phone] Clif Mckeon MD [address] [facility] [place] [address] 09/15/2024 7:30 AM EDT Laboratory Laboratory [address] [place] [phone] [place] [address] 09/16/2024 2:41 PM EDT Hospital Encounter OR [facility], Operating Room, [facility] Floor [address] [place] [phone] Anabella Alberto, [address] [place] [address] 09/16/2024 2:41 PM EDT - 09/16/2024 3:11 PM EDT Surgery OR [facility], Operating Room, [facility] Floor [address] [facility] [place] [phone] Anabella Alberto DO [address] [place] [address] SIGMOIDOSCOPY FLEXIBLE DIAGNOSTIC 09/22/2024 2:15 PM EDT Office Visit Hematology/Oncolog y Scenery [facility] [address] [place] [phone] Flaquita Wilson MD [address] [place] [address] 09/22/2024 2:45 PM EDT Nurse Only Hematology/Oncolog y Treatment, [place] [address] [place] [phone] Rosario, Chair 11 Hem Onc [place] [address] [place] [address] 11/30/2024 9:00 AM EDT Office Visit Sleep Disorders Ctr [facility] [address] [place] [phone] Silvia Holt CRNP [address] [place] [address] 02/09/2025 9:00 AM EDT Office Visit Family [address] [phone] Lashawn Mejia MD [address] [place] [address] [place] [address] Scheduled Orders Name Type Priority Associated Diagnoses [...] 023, 12/14/2020, 10/21/2007 CKD PHOS USE SMARTSET 00787 12/26/202312/06, 01/16/2016, 02/16/2015, Additional history exists HbA1c 12/26/2023 12/25/2022, 07/0 07/2021, 12/14/2020, Additional history exists COVID-19 Vaccine ( season) 2024 Influenza Vaccine (FLU shot) (#1) 2024 05/14/2010 TSH 03/21/2024 03/21/2023, 08/0 09/2022, 12/25/2022, Additional history exists GFR 02/01/2025 08/04/2024, 12/08/2023, 04/09/2024, Additional history exists CKD HGB USE SMARTSET 86131 08/04/202508/04, 08/04/2024, 06/07/2024, Additional history exists Lipid [...] this encounter Medical Devices Implanted Type Area Machine Trimmer Device Identifier Shelf Expiration Date Model / Serial / Lot Port Implant W8f Poly Cath - [id number] Implanted:Qty : 1 on 09/05/2023 by Orville Zendejas MD at [facility] Right: Chest CR BARD : PERIPHERAL VASCULAR [id number] 06/05/2024 [id number] / / [id number] documented as of this encounter Visit Diagnoses [...] Directives occurred with: Not Discussed Care Teams Reconcilement Clerk Relationship Specialty Start Date End Date Lashawn Mejia MD [address] [place] [address] [place] [phone] PCP - General Family Medicine 09/22/20 documented as of this encounter
--- OUTSIDE RECORDS SUMMARY | 2024-10-01 03:33 | External Medical Summary | Summary of Care ---
Author Name Unknown Organization [facility] Address [address] [place] [address] Phone [phone] Care Team Providers Care Customer Care Professional Name Role Phone Lashawn Mejia MD Primary Care Prov ider Reason for Visit * Reason Onset Date Comments Referral 06/23/2024 Encounter Details Date Type Department Care Team (Late st Contact Info) Description 06/23/2024 Telephone Hematology/Oncology Treatment, [place] [address] [place] [phone] Lali Martinez, MIKE [address] [place] [address] Referral Allergies Active Allergy Reactions Criticality Noted Date Comments Gabapentin Neuro complications (Please comment),Tachycardia 02/06/2023 Hallucinations documented as of this encounter (statuses as of 06/24/2024) Medications Lisinopril 5 MG Oral Tablet (Prinivil)Indicati ons:HTN, goal below 140/90 Take by mouth 1 Tablet in the morning. 90 Tablet 1 12/19/19 23 Active dexAMETHasone 4 MG Oral TabletIndications: Endometrial cancer (HCC) Take 5 tab (20 mg) 12 and 6 hours before chemo 60 Tablet 08/26/19 24 Active Ondansetron HCl 8 MG Oral TabletIndications: [...] morning. 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 Do not start before May 06, 2024. 30 Capsule 5 05/06/20 24 Active clonazePAM 0.5 MG Oral Tablet (KlonoPIN)Indicati ons:RLS (restless legs syndrome) Take 1-2 tablets per mouth at bedtime. 60 Tablet 2 04/29/20 Active documented as of this encounter (statuses as of 06/24/2024) Active Problems Problem Noted Date Diagnosed Date Encounter for antineoplastic chemotherapy 2023 Vulvar irritation 05/12/2023 Overview (05/12/2023): BIOPSY (05/06/2023) -- BENIGN A. Skin, right vulva, biopsy: Benign mature sebaceous glands with minimal inflammation. Negative for dysplasia and malignancy. Comment: The findings are non-specific, although sebaceous hyperplasia was considered. Clinical correlation is required to determine if the biopsy if insurance follow up representative. B. 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 Pt is on the move up list for the urgent slot. We will contact pt once slot opens sooner. * Telephone Encounter - Bouchra Webster RN - 06/23/2024 2:49 PM EST At office visit, Lali placed GI referral for colonoscopy- patient with abena blood in stool, history of recurrent endometrial cancer. Gastro: requesting this as urgent referral due to bleeding. Please follow up with patient to schedule. Thank you! documented in this encounter Plan of Treatment Upcoming Encounters Date Type Department Care Team (Latest Contact Info) Description 07/01/2024 9:05 AM EST Office Visit Urogynecology Alicia Belcher [address] [place] [address] Shanti Cummings PA-C [address] [place] [address] Nurse Marques Belcher [address] [place] [address] 08/04/2024 10:00 AM EST Nurse Only Hematology/Oncolog y Treatment, [place] [address] [place] [phone] Rosario, Chair 11 Hem Onc Scenery [address] [place] [address] 09/02/2024 9:20 AM EST Telemedicine Neurology T[address] [place] [phone] Clif Mckeon MD [address] [facility] [place] [address] 09/15/2024 7:30 AM EDT Laboratory Laboratory [address] [place] [address] [place], [address] [place] [address] 09/22/2024 2:15 PM EDT Office Visit Hematology/Oncolog y Scenery Rosario [place] [address] [place] [address] Flaquita Wilson MD [address] [place] [address] 09/22/2024 2:45 PM EDT Nurse Only Hematology/Oncolog y Treatment, [place] [address] [place] [address] Rosario, Chair 11 Hem Onc Scenery [address] [place] [address] 10/11/2024 11:02 AM EDT Hospital Encounter OR [place], Operating Room, [facility] - 4th Floor [address] [place] [phone] Pillo Wilder, DO [address] [place] [address] 10/11/2024 11:02 AM EDT - 10/11/2024 11:43 AM EDT Surgery OR [facility], Operating Room, [facility] - 4th Floor [address] [place] [phone] Pillo Wilder, DO [address] [place] [address] COLONOSCOPY FLEXIBLE PROXIMAL DIAGNOSTIC 11/30/2024 9:00 AM EDT Office Visit Sleep Disorders Ctr [facility] [address] [place] [address] Silvia Holt CRNP [address] [place] [address] Scheduled Procedures Name Priority Associated Diagnoses Date/Ti me COLONOSCOPY FLEXIBLE PROXIMAL DIAGNOSTIC Blood in stool, abena 10/11/2024 11:02 AM EDT Health Maintenance Due Date Last Done [...] 023, 12/14/2020, 10/21/2007 CKD PHOS USE SMARTSET 59592 12/26/2023/2 07/2022, 01/16/2016, 02/16/2015, Additional history exists HbA1c 12/26/2023 12/25/2022, 07/0 07/2021, 12/14/2020, Additional history exists COVID-19 Vaccine ( season) 2024 Influenza Vaccine (FLU shot) (#1) 2024 05/14/2010 TSH 03/21/2024 03/21/2023, 08/0 09/2022, 12/25/2022, Additional history exists GFR 12/06/2024 06/07/2024, 10/0 10/2023, 03/10/2024, Additional history exists CKD HGB USE SMARTSET 23280 06/07/202506/07, 06/07/2024, 03/10/2024, Additional history exists Lipid [...] on patient's age to complete this topic Pneumococcal Vaccine: Pediatrics (0 to 5 Years) and At-Risk Patients (6 to 64 Years) Aged Out No longer eligible based on patient's age to complete this topic Zoster Vaccines Discontinued documented as of this encounter Medical Devices Implanted Type Area Photographer Aerial Device Identifier Shelf Expiration Date Model / Serial / Lot Port Implant W8f Poly Cath - [id number] Implanted:Qty : 1 on 09/05/2023 by Orville Zendejas MD at OR [facility] Right: Chest CR BARD : PERIPHERAL VASCULAR [id number] 06/05/2024 [id number] / / [id number] documented as of this encounter Advance Directives * Full Code (Latest Code Status on File) Date Activated Date Inactivated Comments 02/19/2022 1:10 PM 02/19/2022 8:22 PM This order r eflects the patients wishes and were consensually agreed upon. Question Answer Comments Discussion of Advance Directives occurred with: Not Discussed Care Teams Customer Care Professional Relationship Specialty Start Date End Date Lashawn Mejia MD [address] [place] [address] [place] [phone] PCP - General Family Medicine 09/22/20 documented as of this encounter
--- OUTSIDE RECORDS SUMMARY | 2024-10-01 03:33 | External Medical Summary | Summary of Care ---
Author Name Unknown Organization [facility] Address [address] [place] [address] Phone [phone] Care Team Providers Care Circular Knitter Helper Name Role Phone Lashawn Mejia MD Primary Care Prov ider Reason for Visit * Reason Onset Date Comments Referral 06/23/2024 Encounter Details Date Type Department Care Team (Late st Contact Info) Description 06/23/2024 Telephone Hematology/Oncology Treatment, [place] [address] [place] [phone] Lali Martinez, MIKE [address] [place] [address] Referral Allergies Active Allergy Reactions Criticality Noted Date Comments Gabapentin Neuro complications (Please comment),Tachycardia 02/06/2023 Hallucinations documented as of this encounter (statuses as of 06/25/2024) Medications Lisinopril 5 MG Oral Tablet (Prinivil)Indicati [...] as of this encounter (statuses as of 06/25/2024) Active Problems Problem Noted Date Diagnosed Date Encounter for antineoplastic chemotherapy 2023 Vulvar irritation 05/12/2023 Overview (05/12/2023): BIOPSY (05/06/2023) -- BENIGN A. Skin, right vulva, biopsy: Benign mature sebaceous glands with minimal inflammation. Negative for dysplasia and malignancy. Comment: The findings are non-specific, although sebaceous hyperplasia was considered. Clinical correlation is required to determine if the biopsy if sales representative trainee. B. Skin, left vulva, biopsy: Mild perifollicular [...] as of this encounter (statuses as of 06/25/2024) Resolved Problems Problem Noted Date Diagnosed Date [...] as of this encounter (statuses as of 06/25/2024) Immunizations Name Administration Dates Next Due Seasonal [...] EST Pt is currently scheduled down in [place] or on 10/11 that was the first [...] Alicia Belcher [address] [place] [address] Shanti Cummings PA-C [address] [place] [address] Nurse Marques Belcher [address] [place] [address] 08/04/2024 10:00 AM EST Nurse Only Hematology/Oncolog y Treatment, [place] [address] [place] [phone] Rosario, Chair 11 Hem Onc Scenery [address] [place] [address] 09/02/2024 9:20 AM EST Telemedicine Neurology T[address] [place] [phone] Clif Mckeon MD [address] [facility] [place] [address] 09/15/2024 7:30 AM EDT Laboratory Laboratory [address] [place] [phone] [place], [address] [place] [address] 09/22/2024 2:15 PM EDT Office Visit Hematology/Oncolog y Scenery Rosario [place] [address] [place] [address] Flaquita Wilson MD [address] [place] [address] 09/22/2024 2:45 PM EDT Nurse Only Hematology/Oncolog y Treatment, [place] [address] [place] [address] Rosario, Chair 11 Hem Onc Scenery [address] [place] [address] 10/11/2024 11:02 AM EDT Hospital Encounter OR GL, Operating Room, [facility] - 4th Floor [address] [place] [phone] Pillo Wilder, DO [address] [place] [address] 10/11/2024 11:02 AM EDT - 10/11/2024 11:43 AM EDT Surgery OR [facility], Operating Room, [facility] - 4th Floor [address] [place] [phone] Pillo Wilder, DO [address] [place] [address] COLONOSCOPY FLEXIBLE PROXIMAL DIAGNOSTIC 11/30/2024 9:00 AM EDT Office Visit Sleep Disorders Ctr [facility] [address] [place] [address] Silvia Holt CRNP [address] [place] [address] Scheduled Procedures Name Priority Associated Diagnoses Date/Ti [...] 023, 12/14/2020, 10/21/2007 CKD PHOS USE SMARTSET 44728 12/26/2023/2 07/2022, 01/16/2016, 02/16/2015, Additional history exists HbA1c 12/26/2023 12/25/2022, 07/0 07/2021, 12/14/2020, Additional history exists COVID-19 Vaccine ( season) 2024 Influenza Vaccine (FLU shot) (#1) 2024 05/14/2010 TSH 03/21/2024 03/21/2023, 08/0 09/2022, 12/25/2022, Additional history exists GFR 12/06/2024 06/07/2024, 10/0 10/2023, 03/10/2024, Additional history exists CKD HGB USE SMARTSET 40373 06/07/202506/07, 06/07/2024, 03/10/2024, Additional history exists Lipid [...] this encounter Medical Devices Implanted Type Area Hammer Runner Device Identifier Shelf Expiration Date Model / Serial / Lot Port Implant W8f Poly Cath - [id number] Implanted:Qty : 1 on 09/05/2023 by Orville Zendejas MD at OR [facility] Right: Chest CR BARD : PERIPHERAL VASCULAR [id number] 06/05/2024 [id number] / / [id number] documented as of this encounter Advance Directives * Full Code (Latest Code Status on File) Date Activated Date Inactivated Comments 02/19/2022 1:10 PM 02/19/2022 8:22 PM This order r eflects the patients wishes and were consensually agreed upon. Question Answer Comments Discussion of Advance Directives occurred with: Not Discussed Care Teams Circular Knitter Helper Relationship Specialty Start Date End Date Lashawn Mejia MD [address] [place] [address] [place] [phone] PCP - General Family Medicine 09/22/20 documented as of this encounter
--- OUTSIDE RECORDS SUMMARY | 2024-10-01 03:33 | External Medical Summary | Summary of Care ---
Author Name Unknown Organization [facility] Address [address] [place] [address] Phone [phone] Care Team Providers Care Parent Educator Name Role Phone Lashawn Mejia MD Primary Care Prov ider Reason for Visit * Reason Onset Date Comments Appointment 06/23/2024 Encounter Details Date Type Department Care Team (Late st Contact Info) Description 06/23/2024 Telephone Gastroenterology, [facility] [address] [place] [address] Specified, [facility] [address] [place] [address] Appointment Allergies Active Allergy Reactions Criticality Noted Date [...] determine if the biopsy if sales representative aircraft. B. 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 * Telephone Encounter - Ashley Ford OSA - 06/23/2024 3:29 PM EST Received order from Hem/onc for pt to schedule colonoscopy. Pt is needing or for procedure please call pt to schedule procedure. Case is partially built. documented in this encounter Plan of Treatment Upcoming Encounters Date Type Department Care Team (Latest Contact Info) Description 07/01/2024 9:05 AM EST Office Visit Urogynecology Alicia Belcher [address] [place] [address] Shanti Cummings PA-C [address] [place] [address] Nurse Marques Belcher [address] [place] [address] 08/04/2024 10:00 AM EST Nurse Only Hematology/Oncolog y Treatment, [place] [address] [place] [address] Rosario, Chair 11 Hem Onc Scenery [address] [place] [address] 09/02/2024 9:20 AM EST Telemedicine Neurology T[address] [place] [address] Clif Mckeon MD [address] [facility] [place] [address] 09/15/2024 7:30 AM EDT Laboratory Laboratory [address] [place] [phone] [place], [address] [place] [address] 09/22/2024 2:15 PM EDT Office Visit Hematology/Oncolog y Scenery Rosario [place] [address] [place] [address] Flaquita Wilson MD [address] [place] [address] 09/22/2024 2:45 PM EDT Nurse Only Hematology/Oncolog y [facility], [place] [address] [place] [address] Rosario, Chair 11 Hem Onc Scenery [address] [place] [address] 10/11/2024 11:02 AM EDT Hospital Encounter OR GL, Operating Room, [facility] - 4th Floor [address] [facility] [place] [phone] Pillo Wilder, DO [address] [place] [address] 10/11/2024 11:02 AM EDT - 10/11/2024 11:43 AM EDT Surgery OR [facility], Operating Room, [facility] - 4th Floor [address] [place] [address] Pillo [place], [address] [place] [address] COLONOSCOPY FLEXIBLE PROXIMAL DIAGNOSTIC 11/30/2024 9:00 AM EDT Office Visit Sleep Disorders Ctr Jett Bel[place] [address] [place] [phone] Silvia Holt CRNP [address] [place] [address] Scheduled Procedures Name Priority Associated Diagnoses Date/Ti [...] 023, 12/14/2020, 10/21/2007 CKD PHOS USE SMARTSET 74087 12/26/202312/06, 01/16/2016, 02/16/2015, Additional history exists HbA1c 12/26/2023 12/25/2022, 07/0 07/2021, 12/14/2020, Additional history exists COVID-19 Vaccine ( season) 2024 Influenza Vaccine (FLU shot) (#1) 2024 05/14/2010 TSH 03/21/2024 03/21/2023, 080 09/2022, 12/25/2022, Additional history exists GFR 12/06/2024 06/07/2024, 1010/2023, 03/10/2024, Additional history exists CKD HGB USE SMARTSET 18194 06/07/202506/07, 06/07/2024, 03/10/2024, Additional history exists Lipid [...] Lot Port Implant W8f Poly Cath - [id number] Implanted:Qty : 1 on 09/05/2023 by Orville Zendejas MD at [facility] Right: Chest CR BARD : PERIPHERAL VASCULAR [id number] 06/05/2024 [id number] / / [id number] documented as of this encounter Advance Directives * Full Code (Latest Code Status on File) Date Activated Date Inactivated Comments 02/19/2022 1:10 PM 02/19/2022 8:22 PM This order r eflects the patients wishes and were consensually agreed upon. Question Answer Comments Discussion of Advance Directives occurred with: Not Discussed Care Teams Parent Educator Relationship Specialty Start Date End Date Lashawn Mejia MD [address] [place] [address] [place] [phone] PCP - General Family Medicine 09/22/20 documented as of this encounter
--- OUTSIDE RECORDS SUMMARY | 2024-10-01 03:33 | External Medical Summary | Summary of Care ---
Author Name Unknown Organization [facility] Address [address] [place] [address] Phone [phone] Care Team Providers Care Molder Machine Name Role Phone Lashawn Mejia MD Primary Care Prov ider Reason for Visit * Reason Onset Date Comments Referral 06/23/2024 Encounter Details Date Type Department Care Team (Late st Contact Info) Description 06/23/2024 Telephone Hematology/Oncology Treatment, [place] [address] [place] [address] Lali Martinez, MIKE [address] [place] [address] Referral Allergies Active Allergy Reactions Criticality Noted Date Comments Gabapentin Neuro complications (Please comment),Tachycardia 02/06/2023 Hallucinations documented as of this encounter (statuses as of 06/23/2024) Medications Lisinopril 5 MG Oral Tablet (Prinivil)Indicati [...] as of this encounter (statuses as of 06/23/2024) Active Problems Problem Noted Date Diagnosed Date Encounter for antineoplastic chemotherapy 2023 Vulvar irritation 05/12/2023 Overview (05/12/2023): BIOPSY (05/06/2023) -- BENIGN A. Skin, right vulva, biopsy: Benign mature sebaceous glands with minimal inflammation. Negative for dysplasia and malignancy. Comment: The findings are non-specific, although sebaceous hyperplasia was considered. Clinical correlation is required to determine if the biopsy if parts sales representative. B. Skin, left vulva, [...] as of this encounter (statuses as of 06/23/2024) Resolved Problems Problem Noted Date Diagnosed Date [...] as of this encounter (statuses as of 06/23/2024) Immunizations Name Administration Dates Next Due Seasonal [...] Team (Late st Contact Info) Description 07/01/2024 9:05 AM EST Office Visit Urogynecology Alicia Belcher [address] [place] [address] Shanti Cummings PA-C [address] [place] [address] Nurse Marques Belcher [address] [place] [address] 08/04/2024 10:00 AM EST Nurse Only Hematology/Oncology Treatment, [place] [address] [place] [address] Rosario, Chair 11 Hem Onc Scenery [address] [facility] [place] [address] 09/02/2024 9:20 AM EST Telemedicine Neurology T[address] [place] [phone] Clif Mckeon MD [address] [facility] [place] [id number] 09/15/2024 7:30 AM EDT Laboratory Laboratory [address] [place] [phone] [place], Lab [address] [place] [address] 09/22/2024 2:15 PM EDT Office Visit Hematology/Oncology [facility] [address] [place] [phone] Flaquita Wilson MD [address] [place] [address] 09/22/2024 2:45 PM EDT Nurse Only Hematology/Oncology Treatment, [place] [address] [place] [address] Rosario, Chair 11 Hem Onc [facility] [address] [place] [address] 11/30/2024 9:00 AM EDT [facility] [place] [address] [place] [phone] Silvia Holt CRNP [address] [place] [address] Health Maintenance Due Date Last Done Comments [...] 023, 12/14/2020, 10/21/2007 CKD PHOS USE SMARTSET 61150 12/26/202312/06, 01/16/2016, 02/16/2015, Additional history exists HbA1c 12/26/2023 12/25/2022, 07/0 07/2021, 12/14/2020, Additional history exists COVID-19 Vaccine ( season) 2024 Influenza Vaccine (FLU shot) (#1) 2024 05/14/2010 TSH 03/21/2024 03/21/2023, 08/0 09/2022, 12/25/2022, Additional history exists GFR 12/06/2024 06/07/2024, 10/0 10/2023, 03/10/2024, Additional history exists CKD HGB USE SMARTSET 05949 06/07/202506/07, 06/07/2024, 03/10/2024, Additional history exists Lipid [...] this encounter Medical Devices Implanted Type Area Table Tender Sludge Device Identifier Shelf Expiration Date Model / Serial / Lot Port Implant W8f Poly Cath - [id number] Implanted:Qty : 1 on 09/05/2023 by Orville Zendejas MD at OR [facility] Right: Chest CR BARD : PERIPHERAL VASCULAR [id number] 06/05/2024 [id number] / / [id number] documented as of this encounter Advance Directives * Full Code (Latest Code Status on File) Date Activated Date Inactivated Comments 02/19/2022 1:10 PM 02/19/2022 8:22 PM This order r eflects the patients wishes and were consensually agreed upon. Question Answer Comments Discussion of Advance Directives occurred with: Not Discussed Care Teams Molder Machine Relationship Specialty Start Date End Date Lashawn Mejia MD [address] [place] [address] [place] [phone] PCP - General Family Medicine 09/22/20 documented as of this encounter
--- OUTSIDE RECORDS SUMMARY | 2024-10-01 03:33 | External Medical Summary | Summary of Care ---
Author Name Unknown Organization [facility] Address [address] [place] [address] Phone [phone] Care Team Providers Care Derrickman Helper Name Role Phone Lashawn Mejia MD Primary Care Prov ider Reason for Visit * Reason Comments Procedure Port flush Encounter Details Date Type Department Care Team (Late st Contact Info) Description 06/23/2024 12:30 PM EST Nurse Only Hematology/Oncology Treatment, [place] [address] [place] [phone] Park, Chair 11 Hem Onc Scene [address] [place] [address] Procedure (Port flush) Allergies Active Allergy Reactions Criticality Noted Date [...] required to determine if the biopsy if metals sales representative. B. 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 Pt seen by provider; refer to OV notes. VAD (Venous Access Device) accessed with #[id number] [id number]" without difficulty. VAD flushed with 10 ml NSS and Heparin 5 ml (100 units/ml). Staton needle removed intact. documented in this encounter Plan of Treatment Upcoming Encounters Date Type Department Care Team (Late st Contact Info) Description 07/01/2024 9:05 AM EST Office Visit Urogynecology Alicia Belcher [address] [place] [address] Shanti Cummings PA-C [address] [place] [address] Nurse Marques Belcher [address] [place] [address] 08/04/2024 10:00 AM EST Nurse Only Hematology/Oncology Treatment, [place] [address] [place] [phone] Rosario, Chair 11 Hem Onc Scenery [address] [facility] [address] 09/02/2024 9:20 AM EST Telemedicine Neurology Titi [address] [place] [phone] Clif Mckeon MD [address] [facility] [place] [address] 09/15/2024 7:30 AM EDT Laboratory Laboratory [address] [place] [phone] [place], [address] [place] [address] 09/22/2024 2:15 PM EDT Office Visit Hematology/Oncology [facility] [place] [address] [place] [phone] Flaquita Wilson MD [address] [place] [address] 09/22/2024 2:45 PM EDT Nurse Only Hematology/Oncology Treatment, [place] [address] [place] [address] Rosario, Chair 11 Hem Onc Scene [address] [place] [address] 11/30/2024 9:00 AM EDT Office Visit [facility] Disorders Ctr [facility] [address] [place] [phone] Silvia Holt CRNP [address] [place] [address] Health Maintenance Due Date Last Done Comments [...] 023, 12/14/2020, 10/21/2007 CKD PHOS USE SMARTSET 25677 12/26/2023 06/2 07/2022, 01/16/2016, 02/16/2015, Additional history exists HbA1c 12/26/2023 12/25/2022, 07/0 07/2021, 12/14/2020, Additional history exists COVID-19 Vaccine ( season) 2024 Influenza Vaccine (FLU shot) (#1) 2024 05/14/2010 TSH 03/21/2024 03/21/2023, 08/0 09/2022, 12/25/2022, Additional history exists GFR 12/06/2024 06/07/2024, 100 10/2023, 03/10/2024, Additional history exists CKD HGB USE SMARTSET 61272 06/07/202506/07, 06/07/2024, 03/10/2024, Additional history exists Lipid [...] this encounter Medical Devices Implanted Type Area Emu Farmer Device Identifier Shelf Expiration Date Model / Serial / Lot Port Implant W8f Poly Cath - [id number] Implanted:Qty : 1 on 09/05/2023 by Orville Zendejas MD at [facility] Right: Chest CR BARD : PERIPHERAL VASCULAR [id number] 06/05/2024 [id number] / / [id number] documented as of this encounter Visit Diagnoses Diagnosis Endometrial cancer (HCC)- Primary Malignant neoplasm of corpus uteri, except isthmus Encounter for adjustment and management of vascular access device documented in this encounter Administered Medications Active Administered Medications - up to 3 most recent administrations Medication Order MAR Action Action Date Dose Rate Site hEParin 100 UNIT/ML Lock Flush inj 500 Units 500 Units (5 mL), IV Lock, PRN Other, IV Flush, Starting on Fri06/23/24 at 1254, Until Mary 06/24/24 at 1253, For 24 hours, Do not flush if lock, PICC, or central line not in place; IV infusing or unable to flush.Indications:Endometrial cancer (HCC) Given 06/23/2024 12:56 PM EST 500 Units sodium chloride 0.9 % flush central line 10 mL 10 mL, IV Push, PRN Other, IV Flush, Starting on Fri06/23/24 at 1254, Until Mary 06/24/24 at 1253, For 24 hours, Do not flush if lock, PICC, or central line not in place; IV infusing or unable to flush.Indications:Endometrial cancer (HCC) Given 06/23/2024 12:56 PM EST 10 mL documented in this encounter Advance Directives * Full Code (Latest Code Status on File) Date Activated Date Inactivated Comments 02/19/2022 1:10 PM 02/19/2022 8:22 PM This order r eflects the patients wishes and were consensually agreed upon. Question Answer Comments Discussion of Advance Directives occurred with: Not Discussed Care Teams Derrickman Helper Relationship Specialty Start Date End Date Lashawn Mejia MD [address] [place] [address] [place] [address] PCP - General Family Medicine 09/22/20 documented as of this encounter
--- OUTSIDE RECORDS SUMMARY | 2024-10-01 03:33 | External Medical Summary | Summary of Care ---
Author Name Unknown Organization [facility] Address [address] [place] [address] Phone [phone] Care Team Providers Care Wood Molder Name Role Phone Lashawn Mejia MD Primary Care Prov ider Reason for Visit * Reason Comments Incontinence * Evaluate & Treat - Unlimited Visits (Within 10 days (routine)) - Authorized Specialty Diagnoses / Procedures Referred By Radha santana Referred To Contact MAINTENANCE REPAIRER - Urogynecology / Gynecology Urology Diagnoses Mixed incontinence urge and stress (male)(female) Lashawn Mejia MD [address] [place] [address] [place] [address] Phone: tel: fax: Referral ID Status Reason Start Date Expiration Date Visits Requested Visits Authorized [id number] Authorized Specialty Services Required 05/07/2024 [id number] Encounter Details Date Type Department Care Team (Late st Contact Info) Description 07/01/2024 9:05 AM EST Office Visit Urogynecology Alicia Belcher [address] [place] [address] Shanti Cummings PA-C [address] [place] [address] Nurse Marques Belcher [address] [place] [address] Urge incontinence of urine*; Urinary urgency; Nocturia; Urinary frequency Allergies Active Allergy Reactions Criticality Noted Date [...] required to determine if the biopsy if medicare sales representative. B. Skin, left vulva, biopsy: [...] Date Smoking Tobacco: Never Smokeless Tobacco: Never Tobacco Cessation:Counseling Given: Not Answered Alcohol Use Standard Drinks/Week Comments Yes 0 [...] Sign Reading Time Taken Comments Blood Pressure 158/96 07/01/2024 9:20 AM EST Pulse - - Temperature - - Respiratory Rate - - Oxygen Saturation - - Inhaled Oxygen Concentration - - Weight - - Height 160 cm (5' 3") 07/01/2024 9:20 AM EST Body Mass Index - - documented in this encounter Progress Notes * Shanti Cummings PA-C - 07/01/2024 9:29 AM EST HPI: Lissette CARY is a 59 year old P2 female presenting for evaluation for urinary incontinence. Lissette complains of urinary incontinence for the two months. She has leakage following strong urge to void. She has been soaking through her clothes 2-3x daily. Wearing 2-3 heavy pads daily. In the last 2 days, only small amount of urine lost but otherwise has had full bladder loss. Reports occasional feeling of incomplete bladder emptying. Daytime frequency every 2 hours with urgency. Nocturia 6x nightly. She also complains of bleeding both vaginally and rectally but also feels may be coming from bladder. Hx of endometrial carcinoma. S/p hysterectomy 02/2022. Completed chemotherapy and radiation earlierthis year. Patient was referred by Lashawn Becker MD. Urinary: She leaks with following strong urge to void and also coughing, sneezing, laughing, and getting up. Overall, she leaks severely most days. She uses two to three heavy pads daily for protection. She has occasional sense of incomplete bladder emptying. Prior/current treatment include: none UTI: She denies recent UTIs although has been treated with antibiotics 3x in the last 2 months. Voiding detail: Daytime frequency: every 2 hours Urgency: yes Nocturia: 6x nightly Hesitancy: no Straining: no Hematuria: YES Postvoid dribbling: yes Postvoid urgency: yes Manual reduction: no Drinks: water Prolapse: She denies a palpable bulge. GI: Bowel habits: bowel movements 8x daily, small amounts, has colonoscopy scheduled She denies fecal incontinence. Prior/ current treatments include: none P2 Weight of largest baby: 9 lbs 9 oz Vaginal deliveries: 0 C/S: 2 Past Medical History: Diagnosis Date Adult body mass index 50.0-59.9 ([facility]) 09/21/2010 DDD (degenerative disc disease), cervical 12/16/2014 mild DDD C5-6 and C6-7 Dyslipidemia, goal LDL below 100 09/21/2010 Female stress incontinence Iron deficiency anemia Obesity, morbid (more than 100 lbs over ideal weight or BMI > 40) ([facility]) 08/24/2015 Other organic sleep apnea Prediabetes 01/20/2016 Pseudotumor cerebri 05/09/2000 Restless legs syndrome Urge incontinence of urine 12/05/2011 Vitamin B deficiency Vitamin D deficiency Patient sees Lashawn Becker MD as her primary care provider. Past Surgical History: Procedure Laterality Date DELIVERY 1994 & 1991 COLONOSCOPY, DIAGNOSTIC (RECTUM) 03/20/1998 normal - Dr. Simons COLONOSCOPY, DIAGNOSTIC (RECTUM) N/A 07/03/2023 poor prep/hemorrhoids/diverticulosis/mucosal ulceration sigmoid/biopsies show metastatic carcinoma of endometrial origin/Colonoscopy/[place] EGD, FLEXIBLE, DIAGNOSTIC 03/20/1998 normal INSER TUNN ACC DEV;5 YRS/OLDER Right 09/05/2023 INSERT TUNNELED CENTRAL VENOUS ACCESS WITH SUBQ PORT performed by Orville Zendejas MD at OR [facility] IR BIOPSY 08/06/2023 KNEE ARTHROSCOPY/DEBRIDEMENT 09/04/2009 right knee KNEE ARTHROSCOPY/SURGERY 08/18/1997 left knee - Dr. Pace LAPAROSCOPY TOTAL HYSTX, UTERUS 250GM OR LESS TUBE/OVARY N/A 02/19/2022 ROBOTIC LAPAROSCOPIC HYSTERECTOMY REMOVAL TUBES AND OVARIES FOR UTERUS 250GM OR LESS performed by Keegan Triplett MD at [place] [facility] [place] LIGATE/CUT OVIDUCT(S) MRI C SPINE WO CONTRAST 12/16/2014 degenerative disc C5-6 with mild foraminal narrowing, DDD C6-7 without copmpromise STRESS ECHO (EXERCISE) N/A 09/29/2020 no inducible ischemia. LV function, EF 55% Review of patient's allergies indicates: Allergen Reactions [...] breakfast or other meds) 90 Tablet 1 rOPINIRole HCl 3 MG Oral Tablet Take 1 Tablet by mouth in the morning and 1 Tablet at noon and 1 Tablet in the evening and 1 Tablet before bedtime. 120 Tablet 3 Nortriptyline HCl 25 MG Oral Capsule (Pamelor) Take 1 Capsule by mouth at bedtime. Do not start before May 06, 2024. 30 Capsule 5 clonazePAM 0.5 MG Oral Tablet (KlonoPIN) Take 1-2 tablets per mouth at bedtime. 60 Tablet 2 dexAMETHasone 4 MG Oral Tablet Take 5 tab (20 mg) 12 and 6 hours before chemo (Patient not taking: Reported on 07/01/2024) 60 Tablet 0 Ondansetron HCl 8 MG Oral Tablet Take 1 Tablet by mouth every 8 hours as needed for Nausea. (Patient not taking: Reported on 06/23/2024) 30 Tablet 0 Lidocaine-Prilocaine 2.5-2.5 % External Cream (Emla) APPLY TO SKIN OVER MEDIPORT & COVER 1HR PRIOR TO ACCESSING. (Patient not taking: Reported on 06/23/2024) 30 g 1 Pregabalin 50 MG Oral Capsule (Lyrica) Take 1 Capsule by mouth in the morning and 1 Capsule before bedtime. (Patient not taking: Reported on 06/23/2024) 60 Capsule 0 oxyCODONE-Acetaminophen 5-325 MG Oral Tablet (Percocet) Take 1 Tablet by mouth every 4 hours as needed for Pain, Moderate. (Patient not taking: Reported on 06/23/2024) 60 Tablet 0 buPROPion HCl ER (XL) 150 MG Oral Tablet Extended Release 24 Hour (Wellbutrin XL) Take 1 Tablet by mouth in the morning. (Patient not taking: Reported on 07/01/2024) 30 Tablet 5 No current facility-administered medications for this visit. Family History Problem Relation Name Age of Onset Hypertension Mother Cancer Mother laryngeal Cancer Father prostate Thyroid Disorder Sister Other (Lupus) Sister Thyroid Disorder Sister Half sister Cancer Mother noemi mena Thyroid Disorder Mother noemi mena Hypertension Mother noemi sonithor Arthritis Grandmother (Maternal) Thyroid Disorder Sister [employer] ROS: ROS was performed. Pertinent positives and negatives are documented in the HPI. All others were negative or non contributory. Constitutional: no weight loss, weakness or fatigue Head: no headache Eyes: no worsening of vision Resp: no recent change in breathing Cardiac: no chest pain, palpitations, dyspnea on exertion Breast: no breast lumps, masses, nipple discharge GI: no heartburn, diarrhea, constipation, nausea, vomiting, appetite OK Musculoskeletal: no significant joint/muscle pain or swelling Female : as per HPI Neuro: no weakness, numbness or tingling Psych: denies feeling down, depressed or hopeless in past month, denies being bothered by little interest or pleasure in doing things in past month and no insomnia Heme: no fever, no chills, no sweats and no bleeding/bruising Endo: no unplanned weight change, diaphoresis or hot/cold intolerance Skin: no rash, no itching and no new/changing skin lesion BP 158/96 (BP Site: Left Arm, BP Position: Sitting) | Ht 1.6 m (5' 3") | BMI 55.45 kg/m | BSA 2.51 m GENERAL: alert, healthy, no distress, well nourished and well developed SKIN: Skin color normal. No rashes or significant lesions HEART: RRR without murmurs, gallops, or rubs. LUNG: No increased respiratory effort. ABDOMEN: abdomen soft, non-tender PELVIC: Normal external female genitalia, no vulvar lesions. Clitoris, labia, minor vestibular glands and urethral meatus appear normal. Vagina adequately estrogenized without lesions. Liquid dark red/brown blood present in vaginal vault. BIMANUAL EXAM: no bladder tenderness. PVR: 57 ml via bladder scan Impression: Urge incontinence of urine (Primary) Urinary urgency - URINALYSIS, POINT OF CARE (ENTER/EDIT) - URINALYSIS WITH MICROSCOPIC EXAM Nocturia Urinary frequency Other orders - URINALYSIS, POINT OF CARE - oxyBUTYnin Chloride ER 5 MG Oral Tablet Extended Release 24 Hour (Ditropan XL); Take 1 Tablet by mouth in the morning. Plan: Straight cath urine specimen collected and sent for microscopic exam. Discussed if positive for RBCs, should be seen by urology for further evaluation. Previous specimens were clean catch and with vaginal bleeding, unable to determine if blood truly from bladder or not. Discussed limiting caffeine intake. Discussed practicing daily kegel exercises. Discussed OAB medications, patient would like to start with oxybutynin ER 5mg. Risks, benefits and alternatives reviewed. Briefly discussed third line therapies including botox treatments or sacral nerve modulation as possible future options. Discussed daily Kegel exercises vs. Pelvic floor PT vs. incontinence ring pessary vs. surgical intervention with mid-urethral sling; risks, benefits and success rates reviewed. Surgical risks reviewed including bleeding, infection, injury, mesh exposure and urinary retention. All questions answered. Would not recommend incontinence ring pessary or surgery until vaginal bleeding is resolved. Follow up in 6 weeks or sooner as needed. I spent a total of 40-54 minutes (exact time 40 mins) on the date of service in preparation, delivery, and documentation of the care provided to Lissette CARY excluding any time spent in the performance of separately billed services. Shanti Cummings PA-C 07/01/2024 9:44 AM Shanti Cummings PA-C Urogynecology [address] [place] [address] documented in this encounter Nursing Notes * Elizabeth Borja LPN - 07/01/2024 9:23 AM EST Patient presents to the clinic for evaluation of incontinence. Will leak with C/L/S and urge. documented in this encounter Plan of Treatment Upcoming Encounters Date Type Department Care Team (Latest Contact Info) Description 08/04/2024 10:00 AM EST Nurse Only Hematology/Oncolog y Treatment, [place] [address] [place] [address] Ros[place], Chair 11 Hem Onc Scenery [address] [place] [address] 08/13/2024 11:40 AM EST Office Visit Urogynecology [facility] [address] [place] [address] Shanti Cummings PA-C [address] [place] [address] 09/02/2024 9:20 AM EST Telemedicine Neurology T[address] [place] [phone] Clif Mckeon MD [address] [facility] [place] [address] 09/15/2024 7:30 AM EDT Laboratory Laboratory [address] [place] [phone] [address] [place] [address] 09/22/2024 2:15 PM EDT Office Visit Hematology/Oncolog y [facility] Rosario [place] [address] [place] [phone] Flaquita Wilson MD [address] [place] [address] 09/22/2024 2:45 PM EDT Nurse Only Hematology/Oncolog y Treatment, [place] [address] [place] [phone] Park, Chair 11 Hem Onc Scenery [address] [place] [address] 10/11/2024 11:02 AM EDT Hospital Encounter OR [facility], Operating Room, [facility] - 4th Floor [address] [facility] [place] [phone] [place], [address] [place] [address] 10/11/2024 11:02 AM EDT - 10/11/2024 11:43 AM EDT Surgery OR [facility], Operating Room, [facility] - 4th Floor [address] [place] [phone] [place], [address] [place] [address] COLONOSCOPY FLEXIBLE PROXIMAL DIAGNOSTIC 11/30/2024 9:00 AM EDT Office Visit [facility] Disorders Ctr [facility] [place] [address] [place] [phone] Silvia Holt CRNP [address] [place] [address] Scheduled Orders Name Type Priority Associated Diagnoses Orde r Schedule URINALYSIS, POINT OF CARE (ENTER/EDIT) Point of Care Testing Routine Urinary urgency Ordered: 07/01/2024 Scheduled Procedures Name Priority Associated Diagnoses Date/Ti [...] 023, 12/14/2020, 10/21/2007 CKD PHOS USE SMARTSET 95121 12/26/2023 06/2 07/2022, 01/16/2016, 02/16/2015, Additional history exists HbA1c 12/26/2023 12/25/2022, 07/0 07/2021, 12/14/2020, Additional history exists COVID-19 Vaccine ( season) 2024 Influenza Vaccine (FLU shot) (#1) 2024 05/14/2010 TSH 03/21/2024 03/21/2023, 08/0 09/2022, 12/25/2022, Additional history exists GFR 12/06/2024 06/07/2024, 10/0 10/2023, 03/10/2024, Additional history exists CKD HGB USE SMARTSET 10318 06/07/202506/07, 06/07/2024, 03/10/2024, Additional history exists Lipid [...] this encounter Medical Devices Implanted Type Area Coating Mixer Tender Device Identifier Shelf Expiration Date Model / Serial / Lot Port Implant W8f Poly Cath - [id number] Implanted:Qty : 1 on 09/05/2023 by Orville Zendejas MD at [facility] Right: Chest CR BARD : PERIPHERAL VASCULAR [id number] 06/05/2024 [id number] / / [id number] documented as of this encounter Procedures Procedure Name Priority Date/Time Associated Diagnosis Comments URINALYSIS WITH MICROSCOPIC EXAM Routine 07/01/2024 10:11 AM EST Urinary urgency URINALYSIS, POINT OF CARE ASHOK 07/01/2024 9:26 AM EST documented in this encounter Results * (ABNORMAL) URINALYSIS WITH MICROSCOPIC EXAM (07/01/2024 10:11 AM EST) Color, Urine Yellow Light Yellow, Yellow, Dark Yellow 07/01/2024 11:11 AM EST [facility] [place] [facility] Clarity, Urine Slightly Cloudy(A) Clear 07/01/2024 11:11 AM EST [facility] [place] [facility] Glucose, Urine Negative Negative mg/dL 07/01/2024 11:11 AM EST [facility] [place] [facility]10 Bilirubin, Urine Negative Negative 07/01/2024 11:11 AM EST [facility] [place] [facility]10 Ketone, Urine Negative Negative mg/dL 07/01/2024 11:11 AM EST [facility] [place] [facility]10 Specific Bath, Urine >=1.030 1.003 - 1.030 07/01/2024 11:11 AM EST [facility] [place] [facility]10 Blood, Urine Large(A) Negative 07/01/2024 11:11 AM EST [facility] [place] [facility]10 pH, Urine 5.5 5.0 - 7.5 Units 07/01/2024 11:11 AM EST [facility] [place] [facility] Protein, Urine 100(A) Negative mg/dL 07/01/2024 11:11 AM EST [facility] [place] [facility] Urobilinogen, Urine 0.2 0.2, 1.0 mg/dL 07/01/2024 11:11 AM EST [facility] 57-10 Nitrite, Urine Negative Negative 07/01/2024 11:11 AM EST [facility] 57-10 Esterase, Urine Negative Negative 07/01/2024 11:11 AM EST [facility] 57-10 RBC, Urine 50+(A) 0 - 2 /HPF 07/01/2024 11:11 AM EST [facility] 57-10 WBC, Urine 3-5(A) 0 - 2 /HPF 07/01/2024 11:11 AM EST [facility] 57-10 Bacteria, Urine 26-50(A) 0 - 25 /HPF 07/01/2024 11:11 AM EST [facility] 57-10 Squamous Epithelial Cells, Urine Many(A) None /HPF 07/01/2024 11:11 AM EST [facility] 57[facility]10 Urine Urine specimen / Unknown Non-blood Collection / Unknown 07/01/2024 10:11 AM EST 07/01/2024 10:51 AM EST us Shanti Cummings PA-C LAB URINE ORDERABLES Final Re sult [facility] [address] [place] [address] * (ABNORMAL) URINALYSIS, POINT OF CARE (07/01/2024 9:26 AM EST) Color, Urine Red(A) Light Yellow, Yellow 07/01/2024 9:41 AM EST [facility] 57-10 Clarity, Urine Cloudy(A) Clear 07/01/2024 9:41 AM EST [facility] 57-10 Glucose, Urine Negative Negative mg/dL 07/01/2024 9:41 AM EST [facility] 57-10 Bilirubin, Urine Negative Negative 07/01/2024 9:41 AM EST [facility] 57-10 Ketone, Urine Negative Negative mg/dL 07/01/2024 9:41 AM EST [facility] [place] [facility] Specific Bath, Urine >=1.030 1.003 - 1.030 07/01/2024 9:41 AM EST [facility] [place] Blood, Urine Large(A) Negative 07/01/2024 9:41 AM EST [facility] [place] [facility] pH, Urine 6.0 5.0, 5.5, 6.0, 6.5, 7.0, 7.5 units 07/01/2024 9:41 AM EST [facility] [place] [facility] [facility]10 Protein, Urine >=300(A) Negative mg/dL 07/01/2024 9:41 AM EST [facility] [place] [facility]10 Urobilinogen, Urine 0.2 0.2, 1.0 mg/dL 07/01/2024 9:41 AM EST [facility] [place] [facility]10 Nitrite, Urine Negative Negative 07/01/2024 9:41 AM EST [facility] [place] [facility]10 Esterase, Urine Trace(A) Negative 07/01/2024 9:41 AM EST [facility] [place] [facility]10 Urine 07/01/2024 9:26 AM EST 07/01/2024 9:41 AM EST Shanti Cummings PA-C LAB POINT OF CARE TE ST DOCKED DEVICE UNSOLICITED RESULTS Final Result [facility] [facility] [place] [address] documented in this encounter Visit Diagnoses Diagnosis Urge incontinence of urine- Primary Urge incontinence Urinary urgency Urgency of urination Nocturia Urinary frequency Blood in stool, abena Blood in stool documented in this encounter Advance Directives * Full Code (Latest Code Status on File) Date Activated Date Inactivated Comments 02/19/2022 1:10 PM 02/19/2022 8:22 PM This order r eflects the patients wishes and were consensually agreed upon. Question Answer Comments Discussion of Advance Directives occurred with: Not Discussed Care Teams Wood Molder Relationship Specialty Start Date End Date Lashawn Mejia MD [address] [place] [address] [place] [phone] PCP - General Family Medicine 09/22/20 documented as of this encounter
--- OUTSIDE RECORDS SUMMARY | 2024-10-01 03:33 | External Medical Summary | Summary of Care ---
Author Name Unknown Organization [facility] Address [address] [place] [address] Phone [phone] Care Team Providers Care Tower Foreman Name Role Phone Lashawn Mejia MD Primary Care Prov ider Reason for Visit * Reason Onset Date Comments Appointment 06/23/2024 Encounter Details Date Type Department Care Team (Late st Contact Info) Description 06/23/2024 Telephone Gastroenterology, [facility] [address] [place] [address] Specified, Zz No Resource [address] [place] [address] Appointment Allergies Active Allergy Reactions [...] required to determine if the biopsy if volunteer patient representative. B. 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 Not on file [...] Alicia Belcher [address] [place] [address] Shanti Cummings PA-C [address] [place] [address] Nurse Marques Belcher [address] [place] [address] 08/04/2024 10:00 AM EST Nurse Only Hematology/Oncology Treatment, [place] [address] [place] [phone] Rosario, Chair [address] [place] [facility] [place] [address] 09/02/2024 9:20 AM EST Telemedicine Neurology T[address] [place] [phone] Clif Mckeon MD [address] [facility] [place] [id number] 09/15/2024 7:30 AM EDT Laboratory Laboratory [address] [place] [phone] [address] [place] [address] 09/22/2024 2:15 PM EDT Office Visit Hematology/Oncology [facility] [address] [place] [phone] Flaquita Wilson MD [address] [place] [address] 09/22/2024 2:45 PM EDT Nurse Only Hematology/Oncology Treatment, [place] [address] [place] [phone] Rosario, Chair 11 Hem Onc [facility] [address] [place] [address] 11/30/2024 9:00 AM EDT Office Visit Sleep Disorders Ctr [facility] [place] [address] [place] [phone] Silvia Holt CRNP [address] [place] [address] Scheduled Procedures Name Priority Associated Diagnoses Date/Ti me COLONOSCOPY FLEXIBLE PROXIMAL DIAGNOSTIC Blood in stool, abena Health Maintenance Due Date Last Done Comments [...] 023, 12/14/2020, 10/21/2007 CKD PHOS USE SMARTSET 07139 12/26/202312/06, 01/16/2016, 02/16/2015, Additional history exists HbA1c 12/26/2023 12/25/2022, 07/0 07/2021, 12/14/2020, Additional history exists COVID-19 Vaccine ( season) 2024 Influenza Vaccine (FLU shot) (#1) 2024 05/14/2010 TSH 03/21/2024 03/21/2023, 08/0 09/2022, 12/25/2022, Additional history exists GFR 12/06/2024 06/07/2024, 10/0 10/2023, 03/10/2024, Additional history exists CKD HGB USE SMARTSET 24765 06/07/202506/07, 06/07/2024, 03/10/2024, Additional history exists Lipid [...] this encounter Medical Devices Implanted Type Area Toxicology Supervisor Device Identifier Shelf Expiration Date Model / Serial / Lot Port Implant W8f Poly Cath - [id number] Implanted:Qty : 1 on 09/05/2023 by Orville Zendejas MD at OR [facility] Right: Chest CR BARD : PERIPHERAL VASCULAR [id number] 06/05/2024 [id number] / / [id number] documented as of this encounter Advance Directives * Full Code (Latest Code Status on File) Date Activated Date Inactivated Comments 02/19/2022 1:10 PM 02/19/2022 8:22 PM This order r eflects the patients wishes and were consensually agreed upon. Question Answer Comments Discussion of Advance Directives occurred with: Not Discussed Care Teams Tower Foreman Relationship Specialty Start Date End Date Lashawn Mejia MD [address] [place] [address] [place] [address] PCP - General Family Medicine 09/22/20 documented as of this encounter
--- OUTSIDE RECORDS SUMMARY | 2024-10-01 03:33 | External Medical Summary | Summary of Care ---
Author Name Unknown Organization [facility] Address [address] [place] [address] Phone [phone] Care Team Providers Care Jigger Crown Pouncing Machine Operator Name Role Phone Lashawn Mejia MD Primary Care Prov ider Reason for Referral * Evaluate & Treat - Unlimited Visits (Within 3 days (urgent)) - Authorized Specialty Diagnoses / Procedures Referred By Radha santaan Referred To Contact Gastroenterology Diagnoses Blood in stool, Lali López CRNP [address] [place] [address] Phone: tel: fax: Referral ID Status Reason Start Date Expiration Date Visits Requested Visits Authorized [id number] Authorized Ancillary Services Required 4 [phone] Question Answer Referral Priority Within 3 days (urgent) Where should this appointment be scheduled? Yolanda Comments ALERT: Do not order for pediatric patients (18 years or younger). Cancel off screen and order PEDS GASTROENTEROLOGY CONSULT (Type: 1 visit only-Evaluate and Treat) The following Pt. Instructions are available: - Gastro Colonoscopy Prep Instructions [10739] - Gastro Colonoscopy Prep Instructions (Turkish Version) [58108] Go to the Pt. Instructions section within the Visit Navigator to access. Colonoscopy ASGE Guidelines: Hematochezia and Average risk screening (begin at age 50, 10 year intervals) ADDITIONAL INFORMATION 1. Is the patient on Coumadin? No 2. Is the patient on Pradaxa? No Reason for Visit * Reason Comments Appointment Encounter Details Date Type Department Care Team (Late st Contact Info) Description 06/23/2024 12:00 PM EST Office Visit Hematology/Oncology [place] [facility] [place] [phone] Lali Martinez CRNP [address] [place] [address] Blood in stool, abena* Allergies Active [...] breakfast or other meds) 90 Tablet 1 06/27/20 24 Active oxyCODONE-Acetamin ophen 5-325 MG Oral [...] to determine if the biopsy if customer field representative. B. Skin, left vulva, biopsy: Mild [...] No 04/27/2024 Does the household have a [facility] source of income? 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 Not on file Not on file Not on file documented as of this encounter Last Filed Vital Signs Vital Sign Reading Time Taken Comments Blood Pressure 117/84 06/23/2024 11:57 AM EST Pulse 77 06/23/2024 11:57 AM EST Temperature 36.3 C (97.4 F) 06/23/2024 11:[address] Respiratory Rate - - Oxygen Saturation 92% 06/23/2024 11:57 AM EST Inhaled Oxygen Concentration - - Weight - - Height - - Body Mass Index - - documented in this encounter Progress Notes * Lali Martinez CRNP - 06/23/2024 11:58 AM EST Hematology/Oncology Outpatient Clinic note [facility] [address] [place] [address] Name: Lissette CARY Date: 06/23/2024 CHIEF COMPLAINT: Lissette CARY is a 59 year old female patient of Dr. Sams Steve here today for f/u visit From Patient chart confirmed history with patient. From Dr. Sams Steve note 03/10/24 HEMATOLOGY/ONCOLOGY DIAGNOSIS: Cancer Staging Endometrial cancer (HCC) Staging form: Corpus Uteri - Carcinoma And Carcinosarcoma, AJCC 8th Edition - Clinical stage from 02/19/2022: FIGO Stage IA (cT1a, cN0(sn), cM0) - Signed by Keegan Triplett MD on 02/22/2022 Cancer Diagnosis: Recurrent endometrial cancer Current Treatment: [...] despite dose reduction Taxol was omitted and currently she is receiving single agent carboplatin. Previous Treatment: 12/2021 - underwent robotic assisted total laparoscopic hysterectomy with bilateral salpingo-oophorectomy for uterus and bilateral sentinel pelvic lymph node dissection. Oncologic History : 59-year-old female with a history of multiple medical problems including dyslipidemia, obesity, hypertension was referred with the above diagnosis. Patient presented to Telephone Quotation Clerk 12/28/2021 with complaints of postmenopausal bleeding intermittently for 3months accompanied by pelvic pain. She saw her PCP with similar complaints at which time a TVUS wasordered showing a 4mm polyp and 12mm endometrial lining. At her ob/gyn nurse appointment, an endometrial biopsy weas obtained revealing [...] diagnosed of brain tumor. Interval History: She reports that she has had vaginal spotting and clots on/ off for 2 years. She also c/o new uncontrolled urinary incontinence. This is slowing her down to do anything due to the "mess" She also is having some blood in the stool. Continues to have issues with neuropathy and has appointment with Neurology. Denies any nausea, vomiting, headache, dizziness, chest pain palpitation abdominal pain or distention, bleeding, bruising. HISTORY OF PRESENT ILLNESS: Lissette CARY is a 59 year old female with a history as outlined above. Currently here for f/u visit today. She is frustrated by urinary incontinence. She reports that she was treated three timeswith antibiotics for UTI. This has not helped and she continues to be incontinent Urogyn appt next week. Continues to have some rectal bleeding. Past Medical History: Diagnosis Date Adult body mass index 50.0-59.9 ([facility]) 09/21/2010 DDD (degenerative disc disease), cervical 12/16/2014 mild DDD C5-6 and C6-7 Dyslipidemia, goal LDL below 100 09/21/2010 Female stress incontinence Iron deficiency anemia Obesity, morbid (more than 100 lbs over ideal weight or BMI > 40) ([facility]) 08/24/2015 Other organic sleep apnea Prediabetes 01/20/2016 Pseudotumor cerebri 05/09/2000 Restless legs syndrome Urge incontinence of urine 12/05/2011 Vitamin B deficiency Vitamin D deficiency Past Surgical History: Procedure Laterality Date DELIVERY 1994 & 1991 COLONOSCOPY, DIAGNOSTIC (RECTUM) 03/20/1998 normal - Dr. Simons COLONOSCOPY, DIAGNOSTIC (RECTUM) N/A 07/03/2023 poor prep/hemorrhoids/diverticulosis/mucosal ulceration sigmoid/biopsies show metastatic carcinoma of endometrial origin/Colonoscopy/[place] EGD, FLEXIBLE, DIAGNOSTIC 03/20/1998 normal INSER TUNN ACC DEV;5 YRS/OLDER Right 09/05/2023 INSERT TUNNELED CENTRAL VENOUS ACCESS WITH SUBQ PORT performed by Orville Zendejas MD at OR [facility] IR BIOPSY 08/06/2023 KNEE ARTHROSCOPY/DEBRIDEMENT 09/04/2009 right knee KNEE ARTHROSCOPY/SURGERY 08/18/1997 left knee - Dr. Pace LAPAROSCOPY TOTAL HYSTX, UTERUS 250GM OR LESS TUBE/OVARY N/A 02/19/2022 ROBOTIC LAPAROSCOPIC HYSTERECTOMY REMOVAL TUBES AND OVARIES FOR UTERUS 250GM OR LESS performed by Keegan Triplett MD at OR [facility] LIGATE/CUT OVIDUCT(S) MRI C SPINE WO CONTRAST 12/16/2014 degenerative disc C5-6 with mild foraminal narrowing, DDD C6-7 without copmpromise STRESS ECHO (EXERCISE) N/A 09/29/2020 no inducible ischemia. 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 (Adult - for ages 18 years and over): No Are you able to get enough food for your family? (Household - for ages 0-17 years): Not on file Does your family need food this week? (Household - for ages 0-17 years): Not on file Do you always have enough food for your family? (Household - for ages 0-17 years): Not on file Transportation Needs: No Transportation Needs (04/27/2024) Transportation [...] Stability Do you currently live in a skilled nursing or have no steady place to sleep [...] - for ages0-17 years): Not on file Review of patient's allergies indicates: Allergen Reactions Gabapentin Neuro complications (Please comment) and Tachycardia Hallucinations Current Outpatient Medications Medication Sig Dispense Refill Lisinopril 5 MG Oral Tablet (Prinivil) Take by mouth 1 Tablet in the morning. 90 Tablet 1 dexAMETHasone 4 MG Oral Tablet Take 5 tab (20 mg) 12 and 6 hours before chemo 60 Tablet 0 Ondansetron HCl 8 MG Oral Tablet Take 1 Tablet by mouth every 8 hours as needed for Nausea. 30 Tablet 0 Lidocaine-Prilocaine 2.5-2.5 % External Cream (Emla) APPLY TO SKIN OVER MEDIPORT & COVER 1HR PRIOR TO ACCESSING. 30 g 1 Pregabalin 50 MG Oral Capsule (Lyrica) Take 1 Capsule by mouth in the morning and 1 Capsule before bedtime. 60 Capsule 0 Levothyroxine Sodium 200 MCG Oral Tablet (Levoxyl) Take 1 Tablet by mouth daily first thing in the morning. (at least 30 min prior to breakfast or other meds) 90 Tablet 1 oxyCODONE-Acetaminophen 5-325 MG Oral Tablet (Percocet) Take 1 Tablet by mouth every 4 hours as needed for Pain, Moderate. 60 Tablet 0 rOPINIRole HCl 3 MG Oral Tablet Take 1 Tablet by mouth in the morning and 1 Tablet at noon and 1 Tablet in the evening and 1 Tablet before bedtime. 120 Tablet 3 buPROPion HCl ER (XL) 150 MG Oral Tablet Extended Release 24 Hour (Wellbutrin XL) Take 1 Tablet by mouth in the morning. 30 Tablet 5 Nortriptyline HCl 25 MG Oral Capsule (Pamelor) Take 1 Capsule by mouth at bedtime. Do not start before May 06, 2024. 30 Capsule 5 clonazePAM 0.5 MG Oral Tablet (KlonoPIN) Take 1-2 tablets per mouth at bedtime. 60 Tablet 2 No current facility-administered medications for this visit. REVIEW OF SYSTEMS: See HPI - otherwise negative OBJECTIVE: Filed Vitals: 06/23/24 1157 BP: 117/84 Pulse: 77 Temp: 36.3 C (97.4 F) TempSrc: Tympanic SpO2: 92% PHYSICAL EXAM: ECOG: Performance Status 2 = 60-70% Bedtime, < 50% daytime General Appearance: Normal - Healthy appearing patient in no acute distress HEENT: Normal - No oral or pharyngeal masses, ulceration or thrush noted, no sinus tenderness Lymph Nodes: Normal - No palpable lymph nodes in the neck or supraclavicular areas Lungs/Thorax: Normal - Clear to auscultation Heart: Normal - Regular rate and rhythm, normal S1, S2, no appreciable murmurs, rubs, gallops Pulses/Extremities: Normal - 2+ throughout and symmetrical, no edema Abdomen: Normal - Soft, nontender, bowel sounds present, no appreciable hepatosplenomegaly, no palpable masses Musculoskeletal: Normal - No pain on palpation over bony prominence, no joint or bony deformity Neurologic: Normal - Grossly intact LABS: Results for orders placed or performed in visit on 06/07/24 COMPREHENSIVE METABOLIC PANEL Result Value Ref Range BUN 31 (H) 6 - 20 mg/dL CREATININE 1.2 (H) 0.5 - 1.0 mg/dL EGFR 51 (L) >=60 mL/min SODIUM 141 135 - 146 mmol/L POTASSIUM 4.4 3.5 - 5.1 mmol/L CHLORIDE 102 98 - 107 mmol/L CO2 26 22 - 32 mmol/L ANION GAP 13 7 - 15 mmol/L GLUCOSE 100 70 - 120 mg/dL Albumin 4.2 3.8 - 5.0 g/dL AST 14 10 - 35 U/L Alkaline Phosphatase 109 35 - 130 U/L Bilirubin, Total <0.2 <=1.2 mg/dL CALCIUM 9.7 8.4 - 10.2 mg/dL Protein 7.2 6.0 - 8.3 g/dL ALT 22 10 - 35 U/L CA 125 Result Value Ref Range CA 125 8.8 <=38.1 U/mL FERRITIN Result Value Ref Range Ferritin 99 13 - 150 ng/mL IRON SCREEN, INCLUDING TIBC Result Value Ref Range Iron 51 33 - 151 ug/dL Iron Binding Capacity 312 250 - 425 ug/dL Transferrin Saturation Percent 16 15 - 55 % CBC Result Value Ref Range WBC 7.54 4.00 - 10.80 K/uL RBC 4.05 3.85 - 5.15 M/uL HGB 11.8 (L) 12.0 - 15.3 g/dL HCT 38.5 36.0 - 45.2 % MCV 95.1 81.5 - 97.5 fL MCH 29.1 27.0 - 34.0 pg MCHC 30.6 32.0 - 36.0 g/dL RDW 14.6 11.5 - 15.5 % PLT 316 140 - 400 K/uL MPV 8.3 6.6 - 11.1 fL nRBCs 0 <=0 /100 WBCs DIFFERENTIAL, AUTOMATED Result Value Ref Range WBC 7.54 4.00 - 10.80 K/uL Neutrophils % 76.0 (H) 40.0 - 75.0 % Lymphocytes % 10.5 (L) 18.0 - 42.0 % Monocytes % 9.2 1.0 - 11.0 % Eosinophils % 2.9 0.0 - 6.0 % Basophils % 0.7 0.0 - 2.0 % Immature Granulocytes % 0.7 0.0 - 2.0 % Absolute Neutrophils 5.74 1.80 - 7.70 K/uL Absolute Lymphocytes 0.79 (L) 1.00 - 4.80 K/ul Absolute Monocytes 0.69 0.00 - 1.10 K/uL Absolute Eosinophils 0.22 0.00 - 0.70 K/uL Absolute Basophils 0.05 0.00 - 0.20 K/uL Absolute Immature Granulocytes 0.05 0.00 - 0.20 K/uL URINALYSIS, REFLEX TO CULTURE (CUP ONLY) Result Value Ref Range Urinalysis, Reflex to Culture Specimen Specimen collected and received URINALYSIS, REFLEX TO CULTURE Result Value Ref Range Color, Urine Yellow Colorless, Light Yellow, Yellow, Dark Yellow Clarity, Urine Slightly Cloudy (A) Clear Glucose, Urine Negative Negative mg/dL Bilirubin, Urine Negative Negative Ketone, Urine Negative Negative mg/dL Specific [place], Urine 1.027 1.003 - 1.030 Blood, Urine Large (A) Negative pH, Urine 6.0 5.0 - 7.5 Units Protein, Urine 100 (A) Negative mg/dL Urobilinogen, Urine 2.0 (A) Normal mg/dL Nitrite, Urine Negative Negative Esterase, Urine Small (A) Negative RBC, Urine 50+ (A) 0 - 2 /HPF WBC, Urine 30-49 (A) 0 - 2 /HPF Bacteria, Urine 26-50 (A) 0 - 25 /HPF Calcium Oxalate Crystal, Urine 50+ (A) None /HPF Hyaline, Cast, Urine 1-4 (A) None /LPF Culture, Urine CULTURE, URINE, QUANTITATIVE Specimen: Urine, Clean Catch Result Value Ref Range Culture Growth No significant growth *Note: Due to a large number of results and/or encounters for the requested time period, some results have not been displayed. A complete set of results can be found in Results Review. IMAGING: CT CAP 06/09/24 IMPRESSION: Chest: 1. No findings to suggest metastatic disease to the chest. Abdomen/pelvis: 1. Stable appearance of the vaginal cuff with stable mild anterior vaginal cuff thickening and nodularity closely abutting the posterior bladder wall and sigmoid colon. 2. No new finding since the prior exam. ASSESSMENT: Endometrial cancer- stable Ca [address] scan Persistent vaginal bleeding Rectal bleeding Urinary incontinence - See Urogyn -set up colonoscopy - call office with update -RTC Steve in 3 month with cbc, cmp, ca 125, ferritin and iron MIKE Andrade documented in this encounter Nursing Notes * Sumaya Haskins MED ASSIST - 06/23/2024 12:03 PM EST Patient identifed by name and birthdate [...] it for you? ALREADY ACTIVE Filed Vitals: 06/23/24 1157 BP: 117/84 Pulse: 77 Temp: 36.3 C (97.4 F) TempSrc: Tympanic SpO2: 92% Patient was [...] personnel. Patient voiced full comprehension of instructions. Pt reports swelling in her legs and pain at a level 8. Pt is also having frequent urges to urinate and is incontinent at least 3 times daily. Reports bleeding with clots and blood in stools. documented in this encounter Plan of Treatment Upcoming Encounters Date Type Department Care Team (Latest Contact Info) Description 07/01/2024 9:05 AM EST Office Visit Urogynecology Alicia Belcher [address] [place] [address] Shanti Cummings PA-C [address] [place] [address] Nurse Marques Belcher [address] [place] [address] 08/04/2024 10:00 AM EST Nurse Only [facility] [address] [place] [phone] Rosario, Chair [address] [place] [address] 09/02/2024 9:20 AM EST Telemedicine Neurology [address] [place] [phone] Clif Mckeon MD [address] [facility] [place], [place] [address] 09/15/2024 7:30 AM EDT Laboratory Laboratory [address] [place] [phone] [place] [address] 09/22/2024 2:15 PM EDT Office Visit Hematology/Oncolog y Scenery [facility] [address] [place] [phone] Flaquita Wilson MD [address] [place] [address] 09/22/2024 2:45 PM EDT Nurse Only Hematology/Oncolog y Treatment, [place] [address] [facility] [place] [phone] Rosario, Chair [address] [place] [address] 10/11/2024 11:02 AM EDT Hospital Encounter OR [facility], Operating Room, [facility] - 4th Floor [address] [facility] [place] [phone] Pillo Wilder, DO [address] [place] [address] 10/11/2024 11:02 AM EDT - 10/11/2024 11:43 AM EDT Surgery OR [facility], Operating Room, [facility] - 4th Floor [address] [place] [phone] Pillo Wilder DO [address] [place] [address] COLONOSCOPY FLEXIBLE PROXIMAL DIAGNOSTIC 11/30/2024 9:00 AM EDT Office Visit Sleep Disorders Ctr [facility] [address] [place] [phone] Silvia Holt CRNP [address] [place] [address] Scheduled Procedures Name Priority Associated Diagnoses Date/Ti me COLONOSCOPY FLEXIBLE PROXIMAL DIAGNOSTIC Blood in stool, abena 10/11/2024 11:02 AM EDT Scheduled Referrals Name Type Priority Associated Diagnoses Orde r Schedule COLONOSCOPY, GI REFERRAL OP Referral Within 3 days (urgent) Blood in stool, abena Ordered: 06/23/2024 Health Maintenance Due Date Last Done Comments [...] 023, 12/14/2020, 10/21/2007 CKD PHOS USE SMARTSET 91112 12/26/2023 06/2 07/2022, 01/16/2016, 02/16/2015, Additional history exists HbA1c 12/26/2023 12/25/2022, 0707/2021, 12/14/2020, Additional history exists COVID-19 Vaccine ( season) 2024 Influenza Vaccine (FLU shot) (#1) 2024 05/14/2010 TSH 03/21/2024 03/21/2023, 09/2022, 12/25/2022, Additional history exists GFR 12/06/2024 06/07/2024, 10/2023, 03/10/2024, Additional history exists CKD HGB USE SMARTSET 47275 06/07/202506/07, 06/07/2024, 03/10/2024, Additional history exists Lipid [...] this encounter Medical Devices Implanted Type Area Janitor Helper Device Identifier Shelf Expiration Date Model / Serial / Lot Port Implant W8f Poly Cath - [id number] Implanted:Qty : 1 on 09/05/2023 by Orville Zendejas MD at OR [facility] Right: Chest CR BARD : PERIPHERAL VASCULAR [id number] 06/05/2024 [id number] / / [id number] documented as of this encounter Visit Diagnoses [...] Directives occurred with: Not Discussed Care Teams Jigger Crown Pouncing Machine Operator Relationship Specialty Start Date End Date Lashawn Mejia MD [address] [place] [address] [place] [address] PCP - General Family Medicine 09/22/20 documented as of this encounter
--- OUTSIDE RECORDS SUMMARY | 2024-10-01 03:33 | External Medical Summary | Summary of Care ---
Author Name Unknown Organization [facility] Address [address] [place] [address] Phone [phone] Care Team Providers Care Advanced Nursing Professor Name Role Phone Lashawn Mejia MD Primary Care Prov ider Reason for Visit * Reason Onset Date Comments Referral 06/23/2024 Encounter Details Date Type Department Care Team (Late st Contact Info) Description 06/23/2024 Telephone Hematology/Oncology Treatment, [place] [address] [place] [phone] Lali Martinez, MIKE [address] [place] [phone] Referral Allergies Active Allergy Reactions Criticality [...] required to determine if the biopsy if housing management representative. B. Skin, left vulva, biopsy: Mild [...] EST Pt is currently scheduled down in [place] or on 10/11 that was the first [...] Alicia Belcher [address] [place] [address] Shanti Cummings PA-C [address] [place] [address] Nurse Marques Belcher [address] [place] [address] 08/04/2024 10:00 AM EST Nurse Only Hematology/Oncolog y Treatment, [place] [address] [place] [phone] Rosario, Chair 11 Hem Onc Scenery [address] [place] [address] 09/02/2024 9:20 AM EST Telemedicine Neurology Titi [address] [place] [phone] Clif Mckeon MD [address] [facility] [place] [address] 09/15/2024 7:30 AM EDT Laboratory Laboratory [address] [place] [phone] [place], [address] [place] [address] 09/22/2024 2:15 PM EDT Office Visit Hematology/Oncolog y Scenery Rosario [place] [address] [place] [address] Flaquita Wilson MD [address] [place] [address] 09/22/2024 2:45 PM EDT Nurse Only Hematology/Oncolog y Treatment, [place] [address] [place] [address] Rosario, Chair 11 Hem Onc Scenery [address] [place] [address] 10/11/2024 11:02 AM EDT Hospital Encounter OR [place], Operating Room, [facility] - 4th Floor [address] [place] [phone] Pillo Wilder, DO [address] [place] [address] 10/11/2024 11:02 AM EDT - 10/11/2024 11:43 AM EDT Surgery OR [facility], Operating Room, [facility] - 4th Floor [address] [place] [phone] Pillo Wilder, DO [address] [place] [address] COLONOSCOPY FLEXIBLE PROXIMAL DIAGNOSTIC 11/30/2024 9:00 AM EDT Office Visit Sleep Disorders Ctr Jett [facility] [address] [place] [address] Silvia Holt CRNP [address] [place] [address] Scheduled Procedures Name Priority Associated Diagnoses Date/Ti [...] 023, 12/14/2020, 10/21/2007 CKD PHOS USE SMARTSET 01739 12/26/2023/2 07/2022, 01/16/2016, 02/16/2015, Additional history exists HbA1c 12/26/2023 12/25/2022, 07/0 07/2021, 12/14/2020, Additional history exists COVID-19 Vaccine ( season) 2024 Influenza Vaccine (FLU shot) (#1) 2024 05/14/2010 TSH 03/21/2024 03/21/2023, 08/0 09/2022, 12/25/2022, Additional history exists GFR 12/06/2024 06/07/2024, 10/0 10/2023, 03/10/2024, Additional history exists CKD HGB USE SMARTSET 40434 06/07/202506/07, 06/07/2024, 03/10/2024, Additional history exists Lipid [...] this encounter Medical Devices Implanted Type Area Correctional Officer Lieutenant Device Identifier Shelf Expiration Date Model / Serial / Lot Port Implant W8f Poly Cath - [id number] Implanted:Qty : 1 on 09/05/2023 by Orville Zendejas MD at OR [facility] Right: Chest CR BARD : PERIPHERAL VASCULAR [id number] 06/05/2024 [id number] / / [id number] documented as of this encounter Advance Directives * Full Code (Latest Code Status on File) Date Activated Date Inactivated Comments 02/19/2022 1:10 PM 02/19/2022 8:22 PM This order r eflects the patients wishes and were consensually agreed upon. Question Answer Comments Discussion of Advance Directives occurred with: Not Discussed Care Teams Advanced Nursing Professor Relationship Specialty Start Date End Date Lashawn Mejia MD [address] [place] [address] [place] [phone] PCP - General Family Medicine 09/22/20 documented as of this encounter
--- OUTSIDE RECORDS SUMMARY | 2024-10-01 03:33 | External Medical Summary ---
Author Name Unknown Address Unknown Organization K0[facility] [place] [address] [facility] [address] Laboratory Report Ordering Provider Test Date Status REJI VERMA 07/01/2024 10:11:04 Final Observation Date Value Abnormality Reference (Units ) Status Color of Urine by Auto 07/01/2024 10:11:04 Yellow Light Yellow, Yellow, Dark Yellow Final Clarity, Urine 07/01/2024 10:11:04 Slightly Cloudy Abnormal Clear Final Glucose [Mass/volume] in Urine by Automated test strip 07/01/2024 10:11:04 Negative Negative (mg/dL) Final Bilirubin.total [Presence] in Urine by Automated test strip 07/01/2024 10:11:04 Negative Negative Final Ketones [Mass/volume] in Urine by Automated test strip 07/01/2024 10:11:04 Negative Negative (mg/dL) Final Specific gravity, Urine 07/01/2024 10:11:04 >=1.030 1.003-1.030 Final Hemoglobin [Presence] in Urine by Automated test strip 07/01/2024 10:11:04 Large Abnormal Negative Final pH, Urine 07/01/2024 10:11:04 5.5 5.0-7.5 (Units) Final Protein [Mass/volume] in Urine by Automated test strip 07/01/2024 10:11:04 100 Abnormal Negative (mg/dL) Final Urobilinogen [Mass/volume] in Urine by Automated test strip 07/01/2024 10:11:04 0.2 0.2, 1.0 (mg/dL) Final Nitrite [Presence] in Urine by Automated test strip 07/01/2024 10:11:04 Negative Negative Final Leukocyte esterase [Presence] in Urine by Automated test strip 07/01/2024 10:11:04 Negative Negative Final RBC, Urine 07/01/2024 10:11:04 50+ Abnormal 0-2 (/HPF) Final WBC, Urine 07/01/2024 10:11:04 3-5 Abnormal 0-2 (/HPF) Final Bacteria [#/area] in Urine sediment by Microscopy high power field 07/01/2024 10:11:04 26-50 Abnormal 0-25 (/HPF) Final Epithelial cells.squamous [#/area] in Urine sediment by Microscopy high power field 07/01/2024 10:11:04 Many Abnormal None (/HPF) Final Performing Location [facility] [address] [place] [address]
--- OUTSIDE RECORDS SUMMARY | 2024-10-01 03:33 | External Medical Summary ---
Author Name Unknown Address Unknown Organization K0[facility] [address] [place] [address] Laboratory Report Ordering Provider Test Date Status REJI VERMA 07/01/2024 09:26:00 Final Observation Date Value Abnormality Reference (Units ) Status Color of Urine by Auto 07/01/2024 09:26:00 Red Abnormal Light Yellow, Yellow Final Clarity, Urine 07/01/2024 09:26:00 Cloudy Abnormal Clear Final Glucose [Mass/volume] in Urine by Automated test strip 07/01/2024 09:26:00 Negative Negative (mg/dL) Final Bilirubin.total [Presence] in Urine by Automated test strip 07/01/2024 09:26:00 Negative Negative Final Ketones [Mass/volume] in Urine by Automated test strip 07/01/2024 09:26:00 Negative Negative (mg/dL) Final Specific gravity, Urine 07/01/2024 09:26:00 >=1.030 1.003-1.030 Final Hemoglobin [Presence] in Urine by Automated test strip 07/01/2024 09:26:00 Large Abnormal Negative Final pH, Urine 07/01/2024 09:26:00 6.0 5.0, 5.5, 6.0, 6.5, 7.0, 7.5 (units) Final Protein [Mass/volume] in Urine by Automated test strip 07/01/2024 09:26:00 >=300 Abnormal Negative (mg/dL) Final Urobilinogen, Urine 07/01/2024 09:26:00 0.2 0.2, 1.0 (mg/dL) Final Nitrite [Presence] in Urine by Automated test strip 07/01/2024 09:26:00 Negative Negative Final Leukocyte esterase [Presence] in Urine by Automated test strip 07/01/2024 09:26:00 Trace Abnormal Negative Final Performing Location [facility] [address] [place] [id number]
--- OUTSIDE RECORDS SUMMARY | 2024-10-01 03:34 | External Medical Summary | Summary of Care ---
Author Name Unknown Organization [facility] Address [address] [place] [address] Phone [phone] Care Team Providers Care Special Education Teachers Name Role Phone Lashawn Mejia MD Primary Care Prov ider Reason for Referral * Precert (Within 10 days (routine)) - Pending Review Specialty Diagnoses / Procedures Referred By Radha santana Referred To Contact Radiology Diagnoses Urine frequency Mixed incontinence urge and stress (male)(female) Hematuria, unspecified type Procedures CT ABD/PELVIS WO IV/ORAL CONTRAST Lashawn Mejia MD [address] [place] [address] [place] [address] Phone: tel: fax: Referral ID Status Reason Start Date Expiration Date V isits Requested Visits Authorized [id number] Pending Review 06/08/2024 999 999 Reason for Visit * Reason Onset Date Comments Abnormal Test Results 06/08/2024 Encounter Details Date Type Department Care Team (Late st Contact Info) Description 06/08/2024 Telephone Family Medicine [address] [place] [phone] Lashawn Mejia MD [address] [place] [address] [place] [phone] Abnormal Test Results Allergies Active Allergy Reactions Criticality Noted Date Comments Gabapentin Neuro complications (Please comment),Tachycardia 02/06/2023 Hallucinations documented as of this encounter (statuses as of 06/08/2024) Medications Lisinopril 5 MG Oral Tablet (Prinivil)Indicati ons:HTN, goal below 140/90 Take by mouth 1 Tablet in the morning. 90 Tablet 1 3 Active dexAMETHasone 4 MG Oral TabletIndications: Endometrial cancer (HCC) Take 5 tab (20 mg) 12 and 6 hours before chemo 60 Tablet 4 Active Ondansetron HCl 8 MG Oral TabletIndications: Endometrial cancer (HCC) Take 1 Tablet by mouth every 8 hours as needed for Nausea. 30 Tablet 4 Active Lidocaine-Prilocai ne 2.5-2.5 % External Cream (Emla)Indications: Endometrial cancer (HCC) APPLY TO SKIN OVER MEDIPORT & COVER 1HR PRIOR TO ACCESSING. 30 g 1 4 Active Pregabalin 50 MG Oral Capsule (Lyrica)Indication s:Endometrial cancer (HCC) Take 1 Capsule by mouth in the morning and 1 Capsule before bedtime. 60 Capsule 4 Active Levothyroxine Sodium 200 MCG Oral Tablet (Levoxyl)Indicatio ns:Acquired hypothyroidism Take 1 Tablet by mouth daily first thing in the morning. (at least 30 min prior to breakfast or other meds) 90 Tablet 1 4 Active oxyCODONE-Acetamin ophen 5-325 MG Oral Tablet (Percocet)Indicati ons:Endometrial cancer (HCC) Take 1 Tablet by mouth every 4 hours as needed for Pain, Moderate. 60 Tablet 4 Active rOPINIRole HCl 3 MG Oral TabletIndications: Restless legs syndrome Take 1 Tablet by mouth in the morning and 1 Tablet at noon and 1 Tablet in the evening and 1 Tablet before bedtime. 120 Tablet 3 4 Active buPROPion HCl ER (XL) 150 MG Oral Tablet Extended Release 24 Hour (Wellbutrin XL) Take 1 Tablet by mouth in the morning. 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 Do not start before May 06, 2024. 30 Capsule 5 4 Active clonazePAM 0.5 MG Oral Tablet (KlonoPIN)Indicati ons:RLS (restless legs syndrome) Take 1-2 tablets per mouth at bedtime. 60 Tablet 2 4 Active Nitrofurantoin Monohyd Macro 100 MG Oral Capsule (Macrobid)Indicati ons:Urine frequency,Mixed incontinence urge and stress (male)(female),Hem aturia, unspecified type Take 1 Capsule by mouth in the morning and 1 Capsule before bedtime. Do all this for 7 days. With food until gone. 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 1st Floor, [place] [address] [place] [address] 06/16/2024 10:00 AM EST Immunization/Injection Hematology/Oncology Treatment, [place] [address] [place] [phone] Rosario, Chair 9 Hem Onc Scenery [address] [place] [address] 06/16/2024 10:30 AM EST Office Visit Hematology/Oncology [facility] [place] [address] [place] [address] Flaquita Wilson MD [address] [place] [address] 07/01/2024 9:05 AM EST Office Visit Urogynecology [facility] [address] [facility] [place] [address] Shanti Cummings PA-C [address] [place] [address] Nurse Marques Belcher Jett [address] [place] [address] 09/02/2024 9:20 AM EST Telemedicine Neurology T[address] [place] [phone] Clif Mckeon MD [address] [facility] [place] [id number] 11/30/2024 9:00 AM EDT Office Visit Sleep Disorders Ctr Jett [place] [address] [place] [phone] Silvia Holt CRNP [address] [place] [address] Scheduled Orders Name Type Priority Associated Diagnoses Orde r Schedule CT ABD/PELVIS WO IV/ORAL CONTRAST Medical Imaging Routine Urine frequency Mixed incontinence urge and stress (male)(female) Hematuria, unspecified type Ordered: 06/08/2024 Health Maintenance Due Date Last Done Comments [...] 023, 12/14/2020, 10/21/2007 CKD PHOS USE SMARTSET 72029 12/26/2023 06/2 07/2022, 01/16/2016, 02/16/2015, Additional history exists HbA1c 12/26/2023 12/25/2022, 07/0 07/2021, 12/14/2020, Additional history exists COVID-19 Vaccine ( season) 2024 Influenza Vaccine (FLU shot) (#1) 2024 05/14/2010 TSH 03/21/2024 03/21/2023, 08/0 09/2022, 12/25/2022, Additional history exists GFR 12/06/2024 06/07/2024, 10/0 10/2023, 03/10/2024, Additional history exists CKD HGB USE SMARTSET 93697 06/07/202506/07, 06/07/2024, 03/10/2024, Additional history exists Lipid [...] this encounter Medical Devices Implanted Type Area Silk Winding Machine Operator Device Identifier Shelf Expiration Date Model / Serial / Lot Port Implant W8f Poly Cath - [id number] Implanted:Qty : 1 on 09/05/2023 by Orville Zendejas MD at [facility] Right: Chest CR BARD : PERIPHERAL VASCULAR [id number] 06/05/2024 [id number] / / [id number] documented as of this encounter Visit Diagnoses Diagnosis Urine frequency- Primary Urinary frequency Mixed incontinence urge and stress (male)(female) Hematuria, unspecified type documented in this encounter Advance Directives * Full Code (Latest Code Status on File) Date Activated Date Inactivated Comments 02/19/2022 1:10 PM 02/19/2022 8:22 PM This order r eflects the patients wishes and were consensually agreed upon. Question Answer Comments Discussion of Advance Directives occurred with: Not Discussed Care Teams Special Education Teachers Relationship Specialty Start Date End Date Lashawn Mejia MD [address] [place] [address] [place] [address] PCP - General Family Medicine 09/22/20 documented as of this encounter
--- OUTSIDE RECORDS SUMMARY | 2024-10-01 03:34 | External Medical Summary | Summary of Care ---
Author Name Unknown Organization [facility] Address [address] [place] [address] Phone [phone] Care Team Providers Care Farmer And Grazier Name Role Phone Lashawn Mejia MD Primary Care Prov ider Reason for Visit * Reason Onset Date Comments Advice 06/15/[address] still needed? Encounter Details Date Type Department Care Team (Late st Contact Info) Description 06/15/2024 Telephone Radiology [address] [place], [place] [phone] Kae Mckenzie, RT (R) Advice (Is this CT still needed?) Allergies Active Allergy Reactions Criticality Noted Date Comments Gabapentin Neuro complications (Please comment),Tachycardia 02/06/2023 Hallucinations documented as of this encounter (statuses as of 06/16/2024) Medications Lisinopril 5 MG Oral Tablet (Prinivil)Indicati [...] at bedtime. 60 Tablet 2 4 Active documented as of this encounter (statuses as of 06/16/2024) Active Problems Problem Noted Date Diagnosed Date Encounter for antineoplastic chemotherapy 2023 Vulvar irritation 05/12/2023 Overview (05/12/2023): BIOPSY (05/06/2023) -- BENIGN A. Skin, right vulva, biopsy: Benign mature sebaceous glands with minimal inflammation. Negative for dysplasia and malignancy. Comment: The findings are non-specific, although sebaceous hyperplasia was considered. Clinical correlation is required to determine if the biopsy if dermatology sales representative. B. Skin, left vulva, biopsy: [...] as of this encounter (statuses as of 06/16/2024) Resolved Problems Problem Noted Date Diagnosed Date [...] as of this encounter (statuses as of 06/16/2024) Immunizations Name Administration Dates Next Due Seasonal [...] encounter Miscellaneous Notes * Telephone Encounter - Kae Mckenzie RT (R) - 06/16/2024 4:47 PM EST Spoke with pt and cancelled CT Scan 06/23 * Telephone Encounter - Paula Corona CMA - 06/15/2024 2:06 PM EST fyi * Telephone Encounter - Lashawn Mejia MD - 06/15/2024 8:52 AM EST Please cancel CT as was already completed. * Telephone Encounter - Kae Mckenzie RT (R) - 06/15/2024 7:16 AM EST Do you still need this CT AP WO. Pt just had on done on 06/09 for another provider. If you do not need this CT Scan please have your office contact pt to cancel and scheduling cancel this CT Appt. Kae Newell CT GW documented in this encounter Plan of Treatment Upcoming Encounters Date Type Department Care Team (Late st Contact Info) Description 06/23/2024 12:00 PM EST Office Visit Hematology/Oncology [address] [place] [phone] Lali Martinez CRNP [address] [place] [address] [place] [address] 06/23/2024 12:30 PM EST Nurse Only Hematology/Oncology Treatment, [place] [address] [facility] [phone] Rosario, Chair [address] [place] [address] 07/01/2024 9:05 AM EST Office Visit Urogynecology [facility] [place] Ye [address] [facility] [place] [address] Shanti Cummings PA-C [address] [place] [address] Nurse Ye Uromarbinn Jett [address] [place] [address] 09/02/2024 9:20 AM EST Telemedicine Neurology Catalino Ort[address] [place] [address] [place] [phone] Clif Mckeon MD [address] [facility] [place] [address] 11/30/2024 9:00 AM EDT [facility] [address] [place] [phone] Silvia Holt CRNP 132 [facility] [place] [address] Health Maintenance Due Date Last Done Comments [...] 023, 12/14/2020, 10/21/2007 CKD PHOS USE SMARTSET 93195 12/26/202312/06 07/2022, 01/16/2016, 02/16/2015, Additional history exists HbA1c 12/26/2023 12/25/2022, 07/0 07/2021, 12/14/2020, Additional history exists COVID-19 Vaccine ( season) 2024 Influenza Vaccine (FLU shot) (#1) 2024 05/14/2010 TSH 03/21/2024 03/21/2023, 08/0 09/2022, 12/25/2022, Additional history exists GFR 12/06/2024 06/07/2024, 10/0 10/2023, 03/10/2024, Additional history exists CKD HGB USE SMARTSET 02708 06/07/202506/07, 06/07/2024, 03/10/2024, Additional history exists Lipid [...] this encounter Medical Devices Implanted Type Area Supervisor Inventory Merchandising Device Identifier Shelf Expiration Date Model / Serial / Lot Port Implant W8f Poly Cath - [id number] Implanted:Qty : 1 on 09/05/2023 by Orville Zendejas MD at OR [facility] Right: Chest CR BARD : PERIPHERAL VASCULAR [id number] 06/05/2024 [id number] / / [id number] documented as of this encounter Advance Directives * Full Code (Latest Code Status on File) Date Activated Date Inactivated Comments 02/19/2022 1:10 PM 02/19/2022 8:22 PM This order reflects the patients wishes and were consensually agreed upon. Question Answer Comments Discussion of Advance Directives occurred with: Not Discussed Care Teams Farmer And Grazier Relationship Specialty Start Date End Date Lashawn Mejia MD [address] [place] [address] [place] [address] PCP - General Family Medicine 09/22/20 documented as of this encounter
--- OUTSIDE RECORDS SUMMARY | 2024-10-01 03:34 | External Medical Summary | Summary of Care ---
Author Name Unknown Organization [facility] Address [address] [place] [address] Phone [phone] Care Team Providers Care Fitting Room Associate Name Role Phone Lashawn Mejia MD Primary Care Prov ider Encounter Details Date Type Department Care Team (Late st Contact Info) Description 06/11/2024 Orders Only Hematology/Oncology Treatment, [place] [address] [place] [phone] Flaquita Wilson MD [address] [place] [address] Allergies Active Allergy Reactions Criticality Noted Date Comments Gabapentin Neuro complications (Please comment),Tachycardia 02/06/2023 Hallucinations documented as of this encounter (statuses as of 06/11/2024) Medications Lisinopril 5 MG Oral Tablet (Prinivil)Indicati [...] as of this encounter (statuses as of 06/11/2024) Active Problems Problem Noted Date Diagnosed Date Encounter for antineoplastic chemotherapy 2023 Vulvar irritation 05/12/2023 Overview (05/12/2023): BIOPSY (05/06/2023) -- BENIGN A. Skin, right vulva, biopsy: Benign mature sebaceous glands with minimal inflammation. Negative for dysplasia and malignancy. Comment: The findings are non-specific, although sebaceous hyperplasia was considered. Clinical correlation is required to determine if the biopsy if tax representative. B. Skin, left vulva, biopsy: Mild [...] as of this encounter (statuses as of 06/11/2024) Resolved Problems Problem Noted Date Diagnosed Date [...] as of this encounter (statuses as of 06/11/2024) Immunizations Name Administration Dates Next Due Seasonal [...] Care Team (Late st Contact Info) Description 06/16/2024 10:00 AM EST Immunization/Injection Hematology/Oncology Treatment, [place] [address] [place] [phone] Rosario, Chair 9 Hem Onc [facility] 200 [facility] [place] [address] 06/16/2024 10:30 AM EST Office Visit Hematology/Oncology [facility] [address] [place] [phone] Flaquita Wilson MD [address] [place] [address] 06/23/2024 10:15 AM EST Imaging Radiology [facility] 1st [facility], [place] [address] [place] [facility] [place] [address] 07/01/2024 9:05 AM EST Office Visit Urogynecology [facility] [address] [place] [address] Shanti Cummings PA-C [address] [place] [address] Nurse Ye [facility] [address] [place] [address] 09/02/2024 9:20 AM EST Telemedicine Neurology [address] [place] [phone] Clif Mckeon MD [address] [facility] [place] [address] 11/30/2024 9:00 AM EDT [facility] [address] [place] [address] Silvia Holt CRNP [address] [place] [address] Health Maintenance Due Date Last Done Comments [...] 023, 12/14/2020, 10/21/2007 CKD PHOS USE SMARTSET 56829 12/26/202312/06, 01/16/2016, 02/16/2015, Additional history exists HbA1c 12/26/2023 12/25/2022, 07/0 07/2021, 12/14/2020, Additional history exists COVID-19 Vaccine ( season) 2024 Influenza Vaccine (FLU shot) (#1) 2024 05/14/2010 TSH 03/21/2024 03/21/2023, 08/0 09/2022, 12/25/2022, Additional history exists GFR 12/06/2024 06/07/2024, 1010/2023, 03/10/2024, Additional history exists CKD HGB USE SMARTSET 99420 06/07/202506/07, 06/07/2024, 03/10/2024, Additional history exists Lipid [...] this encounter Medical Devices Implanted Type Area Green End Department Supervisor Device Identifier Shelf Expiration Date Model / Serial / Lot Port Implant W8f Poly Cath - [id number] Implanted:Qty : 1 on 09/05/2023 by Orville Zendejas MD at [facility] Right: Chest CR BARD : PERIPHERAL VASCULAR [id number] 06/05/2024 [id number] / / [id number] documented as of this encounter Advance Directives * Full Code (Latest Code Status on File) Date Activated Date Inactivated Comments 02/19/2022 1:10 PM 02/19/2022 8:22 PM This order r eflects the patients wishes and were consensually agreed upon. Question Answer Comments Discussion of Advance Directives occurred with: Not Discussed Care Teams Fitting Room Associate Relationship Specialty Start Date End Date Lashawn Mejia MD [address] [place] [address] [place] [address] PCP - General Family Medicine 09/22/20 documented as of this encounter
--- OUTSIDE RECORDS SUMMARY | 2024-10-01 03:34 | External Medical Summary | Summary of Care ---
Author Name Unknown Organization [facility] Address [address] [place] [address] Phone [phone] Care Team Providers Care Business Consultant Name Role Phone Lashawn Mejia MD Primary Care Prov ider Reason for Referral * Evaluate & Treat - Unlimited Visits (Within 10 days (routine)) - Authorized Specialty Diagnoses / Procedures Referred By Radha santana Referred To Contact Urology Diagnoses Urine frequency Mixed incontinence urge and stress (male)(female) Hematuria, unspecified type Lashawn Mejia MD [address] [place] [address] [place] [address] Phone: tel: fax: Referral ID Status Reason Start Date Expiration Date Visits Requested Visits Authorized [id number] Authorized Specialty Services Required 06/08/2024 999 999 Question Answer Referral Priority Within 10 days (routine) Where should this appointment be scheduled? [facility] What is the patient being referred for? Hematuria What is Hematuria condition? Microscopic * Precert (Within 10 days (routine)) - Pending Review Specialty Diagnoses / Procedures Referred By Radha santana Referred To Contact Radiology Diagnoses Urine frequency Mixed incontinence urge and stress (male)(female) Hematuria, unspecified type Procedures CT ABD/PELVIS WO IV/ORAL CONTRAST Lashawn Mejia MD [address] [place] [address] [place] [address] Phone: tel: fax: Referral ID Status Reason Start Date Expiration Date V isits Requested Visits Authorized [id number] Pending Review 06/08/[phone] Reason for Visit * Reason Onset Date Comments Abnormal Test Results 06/08/2024 Encounter Details Date Type Department Care Team (Late st Contact Info) Description 06/08/2024 Telephone Family Medicine [address] [place] [address] Lashawn Mejia MD [address] [place] [address] [place] [address] Abnormal Test Results Allergies Active Allergy Reactions [...] Description 06/09/2024 10:15 AM EST [facility] 1st [facility], [place] [address] [facility] [place] [address] 06/16/2024 10:00 AM EST Immunization/Injection Hematology/Oncology Treatment, [place] [address] [place] [address] Rosario, Chair 9 Hem Onc [facility] [address] [place] [address] 06/16/2024 10:30 AM EST Office Visit Hematology/Oncology [facility] [address] [place] [address] Flaquita Wilson MD [address] [place] [address] 07/01/2024 9:05 AM EST Office Visit Urogynecology [facility] [address] [facility] [place] [address] Shanti Cummings PA-C [address] [place] [address] Nurse Marques Belcher Jett [address] [place] [address] 09/02/2024 9:20 AM EST Telemedicine Neurology [address] [place] [address] Clif Mckeon MD [address] [facility] [place] [id number] 11/30/2024 9:00 AM EDT Office Visit Sleep Disorders Ctr [facility] 132 [facility] [place] [phone] Silvia Holt CRNP [address] [place] [address] Scheduled Orders Name Type Priority Associated Diagnoses Orde r Schedule CT ABD/PELVIS WO IV/ORAL CONTRAST Medical Imaging Routine Urine frequency Mixed incontinence urge and stress (male)(female) Hematuria, unspecified type Ordered: 06/08/2024 Scheduled Referrals Name Type Priority Associated Diagnoses Orde r Schedule ADULT/PEDS UROLOGY REFERRAL OP Referral Within 10 days (routine) Urine frequency Mixed incontinence urge and stress [...] 023, 12/14/2020, 10/21/2007 CKD PHOS USE SMARTSET 67421 12/26/2023 06/2 07/2022, 01/16/2016, 02/16/2015, Additional history exists HbA1c 12/26/2023 12/25/2022, 07/0 07/2021, 12/14/2020, Additional history exists COVID-19 Vaccine (2023- season) 2024 Influenza Vaccine (FLU shot) (#1) 2024 05/14/2010 TSH 03/21/2024 03/21/2023, 08/0 09/2022, 12/25/2022, Additional history exists GFR 12/06/2024 06/07/2024, 10/0 10/2023, 03/10/2024, Additional history exists CKD HGB USE SMARTSET 34258 06/07/202506/07, 06/07/2024, 03/10/2024, Additional history exists Lipid [...] this encounter Medical Devices Implanted Type Area Specialist Field Engineer Device Identifier Shelf Expiration Date Model / Serial / Lot Port Implant W8f Poly Cath - [id number] Implanted:Qty : 1 on 09/05/2023 by Orville Zendejas MD at OR [facility] Right: Chest CR BARD : PERIPHERAL VASCULAR [id number] 06/05/2024 [id number] / / [id number] documented as of this encounter Visit Diagnoses [...] Directives occurred with: Not Discussed Care Teams Business Consultant Relationship Specialty Start Date End Date Lashawn Mejia MD [address] [place] [address] [place] [address] PCP - General Family Medicine 09/22/20 documented as of this encounter
--- OUTSIDE RECORDS SUMMARY | 2024-10-01 03:34 | External Medical Summary | Summary of Care ---
Author Name Unknown Organization [facility] Address [address] [place] [address] Phone [phone] Care Team Providers Care Shop Mechanic Name Role Phone Lashawn Mejia MD Primary Care Prov ider Reason for Visit * Reason Comments Outpatient Testing Encounter Details Date Type Department Care Team (Late st Contact Info) Description 06/07/2024 7:40 AM EST Laboratory Laboratory [address] [place] [phone] [place] [address] Endometrial cancer (HCC); Restless legs; Urine frequency Allergies Active Allergy Reactions Criticality Noted Date Comments Gabapentin Neuro complications (Please comment),Tachycardia 02/06/2023 Hallucinations documented as of this encounter (statuses as of 06/07/2024) Medications Lisinopril 5 MG Oral Tablet (Prinivil)Indicati [...] as of this encounter (statuses as of 06/07/2024) Active Problems Problem Noted Date Diagnosed Date Encounter for antineoplastic chemotherapy 2023 Vulvar irritation 05/12/2023 Overview (05/12/2023): BIOPSY (05/06/2023) -- BENIGN A. Skin, right vulva, biopsy: Benign mature sebaceous glands with minimal inflammation. Negative for dysplasia and malignancy. Comment: The findings are non-specific, although sebaceous hyperplasia was considered. Clinical correlation is required to determine if the biopsy if marketing sales representative. B. 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 Not on file Not on file documented as of this encounter Plan of Treatment Upcoming Encounters Date Type Department Care Team (Late st Contact Info) Description 06/09/2024 10:15 AM EST Imaging Radiology [facility] 1st [facility], [place] 132 [facility] [place] [address] 06/16/2024 10:00 AM EST Immunization/Injection Hematology/Oncology Treatment, [place] [address] [place] [phone] Rosario, Chair 9 Hem Onc [place] [address] [place] [address] 06/16/2024 10:30 AM EST Office Visit Hematology/Oncology [facility] [place] [address] [place] [phone] Flaquita Wilson MD [address] [place] [address] 07/01/2024 9:05 AM EST Office Visit Urogynecology [facility] [address] [place] [address] Shanti Cummings PA-C [address] [place] [address] Nurse Marques Belcher Jett [address] [place] [address] 09/02/2024 9:20 AM EST Telemedicine Neurology [address] [place] [phone] Clif Mckeon MD 100 [address] [facility] [place] [address] 11/30/2024 9:00 AM EDT Office Visit [facility] Disorders Ctr [facility] 132 [facility] [place] [phone] Silvia Holt CRNP [address] [place], [place] [phone] Pending Results Name Type Priority Associated Diagnoses Date /Time CBC WITH WBC DIFFERENTIAL Lab STAT Endometrial cancer (HCC) 06/07/2024 7:40 AM EST COMPREHENSIVE METABOLIC PANEL Lab STAT Endometrial cancer (HCC) 06/07/2024 7:40 AM EST CA 125 Lab Routine Endometrial cancer ([facility]) 06/07/2024 7:40 AM EST FERRITIN Lab STAT Endometrial cancer (HCC) Restless legs 06/07/2024 7:40 AM EST IRON SCREEN, INCLUDING TIBC Lab STAT Endometrial cancer (HCC) Restless legs 06/07/2024 7:40 AM EST URINALYSIS, REFLEX TO CULTURE (NOT FOR NEUTROPENIC PATIENTS) Lab Routine Urine frequency 06/07/2024 7:40 AM EST CBC Lab STAT Endometrial cancer (HCC) 06/07/2024 7:40 AM EST DIFFERENTIAL, AUTOMATED Lab STAT Endometrial cancer (HCC) 06/07/2024 7:40 AM EST URINALYSIS, REFLEX TO CULTURE (CUP ONLY) Lab Routine Urine frequency 06/07/2024 7:40 AM EST URINALYSIS, REFLEX TO CULTURE Lab Routine Urine frequency 06/07/2024 7:40 AM EST Health Maintenance Due Date Last [...] 023, 12/14/2020, 10/21/2007 CKD PHOS USE SMARTSET 32902 12/26/2023 06/07/2022, 01/16/2016, 02/16/2015, Additional history exists HbA1c 12/26/2023 12/25/2022, 07/0 07/2021, 12/14/2020, Additional history exists COVID-19 Vaccine ( season) 2024 Influenza Vaccine (FLU shot) (#1) 2024 05/14/2010 TSH 03/21/2024 03/21/2023, 08/0 09/2022, 12/25/2022, Additional history exists GFR 10/08/2024 04/09/2024, 090 10/2023, 02/17/2024, Additional history exists CKD HGB USE SMARTSET 99776 03/10/202503/10, 03/10/2024, 02/17/2024, Additional history exists Lipid Panel 01/04/2027 01/04/2022, [...] encounter Medical Devices Implanted Type Area Engineering Patternmaker Device Identifier Shelf Expiration Date Model / Serial / Lot Port Implant W8f Poly Cath - [id number] Implanted:Qty : 1 on 09/05/2023 by Orville Zendejas MD at OR [facility] Right: Chest CR BARD : PERIPHERAL VASCULAR [id number] 06/05/2024 [id number] / / [id number] documented as of this encounter Visit Diagnoses Diagnosis Endometrial cancer (HCC) Malignant neoplasm of corpus uteri, except isthmus Restless legs Restless legs syndrome (RLS) Urine frequency Urinary frequency documented in this encounter Advance Directives * Full Code (Latest Code Status on File) Date Activated Date Inactivated Comments 02/19/2022 1:10 PM 02/19/2022 8:22 PM This order r eflects the patients wishes and were consensually agreed upon. Question Answer Comments Discussion of Advance Directives occurred with: Not Discussed Care Teams Shop Mechanic Relationship Specialty Start Date End Date Lashawn Mejia MD [address] [place] [address] [place] [address] PCP - General Family Medicine 09/22/20 documented as of this encounter
--- OUTSIDE RECORDS SUMMARY | 2024-10-01 03:34 | External Medical Summary | Summary of Care ---
Author Name Unknown Organization [facility] Address [address] [place] [address] Phone [phone] Care Team Providers Care Music Ministries Director Name Role Phone Lashawn Mejia MD Primary Care Prov ider Reason for Referral * Evaluate & Treat - Unlimited Visits (Within 10 days (routine)) - Authorized Specialty Diagnoses / Procedures Referred By Radha santana Referred To Contact Urology Diagnoses Urine frequency Mixed incontinence urge and stress (male)(female) Hematuria, unspecified type Lashawn Mejia MD [address] [place] [address] [place] [address] Phone: tel: fax: Referral ID Status Reason Start Date Expiration Date Visits Requested Visits Authorized [id number] Authorized Specialty Services Required 06/08/2024 999 999 [...] ABD/PELVIS WO IV/ORAL CONTRAST Lashawn Mejia MD [address] [place] [address] [place] [address] Phone: tel: fax: Referral ID Status Reason Start Date Expiration Date V isits Requested Visits Authorized [id number] Pending Review 06/08/2024 999 999 Reason for Visit * Reason Onset Date Comments Abnormal Test Results 06/08/2024 Encounter Details Date Type Department Care Team (Late st Contact Info) Description 06/08/2024 Telephone Family Medicine [address] [place] [address] Lashawn Mejia MD [address] [place] [address] [place] [address] Abnormal Test Results Allergies [...] No 04/27/2024 Are you (or your family) dariana eless or worried that you might be [...] 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 [address] [facility] [place] [address] 06/16/2024 10:00 AM EST Immunization/Injection Hematology/Oncology Treatment, [place] [address] [place] [phone] Rosario, Chair 9 Hem Onc [facility] [address] [place] [address] 06/16/2024 10:30 AM EST Office Visit Hematology/Oncology [facility] [address] [place] [phone] Flaquita Wilson MD [address] [place] [address] 07/01/2024 9:05 AM EST Office Visit Urogynecology [facility] [address] [place] [address] Shanti Cummings PA-C [address] [place] [address] Nurse Marques Belcher [address] [place] [address] 09/02/2024 9:20 AM EST Telemedicine Neurology [address] [place] [address] Clif Mckeon MD [address] [place] [address] 11/30/2024 9:00 AM EDT Office Visit Sleep Disorders Ctr [facility] [address] [place] [address] Silvia Holt CRNP [address] [place] [address] Scheduled Orders Name Type Priority Associated Diagnoses [...] 023, 12/14/2020, 10/21/2007 CKD PHOS USE SMARTSET 04469 12/26/2023 06/07/2022, 01/16/2016, 02/16/2015, Additional history exists HbA1c 12/26/2023 12/25/2022, 07/0 07/2021, 12/14/2020, Additional history exists COVID-19 Vaccine ( season) 2024 Influenza Vaccine (FLU shot) (#1) 2024 05/14/2010 TSH 03/21/2024 03/21/2023, 0809/2022, 12/25/2022, Additional history exists GFR 12/06/2024 06/07/2024, 100 10/2023, 03/10/2024, Additional history exists CKD HGB USE SMARTSET 60469 06/07/202506/07, 06/07/2024, 03/10/2024, Additional history exists Lipid [...] this encounter Medical Devices Implanted Type Area Can Slider Device Identifier Shelf Expiration Date Model / Serial / Lot Port Implant W8f Poly Cath - [id number] Implanted:Qty : 1 on 09/05/2023 by Orville Zendejas MD at OR [facility] Right: Chest CR BARD : PERIPHERAL VASCULAR [id number] 06/05/2024 [id number] / / [id number] documented as of this encounter Visit Diagnoses [...] occurred with: Not Discussed Care Teams Music Ministries Director Relationship Specialty Start Date End Date Lashawn Mejia MD [address] [place] [address] [place] [address] PCP - General Family Medicine 09/22/20 documented as of this encounter
--- OUTSIDE RECORDS SUMMARY | 2024-10-01 03:34 | External Medical Summary | Summary of Care ---
Author Name Unknown Organization [facility] Address [address] [place] [address] Phone [phone] Care Team Providers Care Solar Sales Name Role Phone Lashawn Mejia MD Primary Care Prov ider Reason for Visit * Reason Onset Date Comments Test Results Imaging Study 06/14/2024 CT Sc an Encounter Details Date Type Department Care Team (Late st Contact Info) Description 06/14/2024 Telephone Hematology/Oncology [facility] 200 [facility] [place] [phone] Flaquita Wilson MD [address] [facility] [place] [address] Test Results Imaging Study (CT Scan) Allergies Active Allergy Reactions Criticality Noted Date Comments Gabapentin Neuro complications (Please comment),Tachycardia 02/06/2023 Hallucinations documented as of this encounter (statuses as of 06/14/2024) Medications Lisinopril 5 MG Oral Tablet (Prinivil)Indicati [...] as of this encounter (statuses as of 06/14/2024) Active Problems Problem Noted Date Diagnosed Date Encounter for antineoplastic chemotherapy 2023 Vulvar irritation 05/12/2023 Overview (05/12/2023): BIOPSY (05/06/2023) -- BENIGN A. Skin, right vulva, biopsy: Benign mature sebaceous glands with minimal inflammation. Negative for dysplasia and malignancy. Comment: The findings are non-specific, although sebaceous hyperplasia was considered. Clinical correlation is required to determine if the biopsy if reimbursement representative. B. 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 * Telephone Encounter - Selin Brown LPN - 06/14/2024 9:43 AM EST ----- Message from Flaquita Wilson MD sent at 06/13/2024 12:24 PM EST ----- CT scan IMPRESSION: Chest: 1. No findings to suggest metastatic disease to the chest. Abdomen/pelvis: 1. Stable appearance of the vaginal cuff with stable mild anterior vaginal cuff thickening and nodularity closely abutting the posterior bladder wall and sigmoid colon. 2. No new finding since the prior exam. documented in this encounter Plan of Treatment Upcoming Encounters Date Type Department Care Team (Late st Contact Info) Description 06/16/2024 10:00 AM EST Immunization/Injection Hematology/Oncology Treatment, [place] [address] [place], [place] [phone] Rosario, Chair 9 Hem Onc [facility] 200 [facility] [place], [place] [address] 06/16/2024 10:30 AM EST Office Visit Hematology/Oncology [facility] [place] [address] [place] [phone] Flaquita Wilsno MD 200 [facility] [place] [address] 06/23/2024 10:15 AM EST Imaging Radiology [facility] 1st [facility], [place] [address] [place] [address] 07/01/2024 9:05 AM EST Office Visit Urogynecology [facility] 132 [facility] [place] [address] Shanti Cummings PA-C [address] [place] [address] BelcherNurse erika Urogyn [facility] [address] [place] [address] 09/02/2024 9:20 AM EST Telemedicine Neurology [address] [place] [phone] Clif Mckeon MD [address] [facility] [place] [address] 11/30/2024 9:00 AM EDT Office Visit Sleep Disorders Ctr [facility] 132 [facility] [place] [phone] Silvia Holt CRNP 132 [facility] [place] [address] Health Maintenance Due Date Last Done Comments [...] 023, 12/14/2020, 10/21/2007 CKD PHOS USE SMARTSET 99804 12/26/202312/06, 01/16/2016, 02/16/2015, Additional history exists HbA1c 12/26/2023 12/25/2022, 07/0 07/2021, 12/14/2020, Additional history exists COVID-19 Vaccine ( season) 2024 Influenza Vaccine (FLU shot) (#1) 2024 05/14/2010 TSH 03/21/2024 03/21/2023, 080 09/2022, 12/25/2022, Additional history exists GFR 12/06/2024 06/07/2024, 10/0 10/2023, 03/10/2024, Additional history exists CKD HGB USE SMARTSET 30946 06/07/202506/07, 06/07/2024, 03/10/2024, Additional history exists Lipid [...] this encounter Medical Devices Implanted Type Area Melter Clerk Device Identifier Shelf Expiration Date Model / Serial / Lot Port Implant W8f Poly Cath - [id number] Implanted:Qty : 1 on 09/05/2023 by Orville Zendejas MD at [facility] Right: Chest CR BARD : PERIPHERAL VASCULAR [id number] 06/05/2024 [id number] / / [id number] documented as of this encounter Advance Directives * Full Code (Latest Code Status on File) Date Activated Date Inactivated Comments 02/19/2022 1:10 PM 02/19/2022 8:22 PM This order r eflects the patients wishes and were consensually agreed upon. Question Answer Comments Discussion of Advance Directives occurred with: Not Discussed Care Teams Solar Sales Relationship Specialty Start Date End Date Lashawn Mejia MD [address] [place] [address] [place] [phone] PCP - General Family Medicine 09/22/20 documented as of this encounter
--- OUTSIDE RECORDS SUMMARY | 2024-10-01 03:34 | External Medical Summary ---
Author Name Unknown Address Unknown Organization K01:[facility] [place] [address] [facility] [address] Laboratory Report Ordering Provider Test Date Status BROCK BURNHAM 06/07/2024 07:40:28 Final Observation Date Value Abnormality Reference (Units ) Status Ferritin 06/07/2024 07:40:28 99 13-150 (ng /mL) Final Postmenopausal women have hi gher ferritin levels than pre-menopausal women. The above reference interval is based on pre-menopausal women. Performing Location [facility] [place] [facility] [address] [facility] [address]
--- OUTSIDE RECORDS SUMMARY | 2024-10-01 03:35 | External Medical Summary ---
Author Name Unknown Address Unknown Organization K01:[facility] - [address] [place] [id number] Laboratory Report Ordering Provider Test Date Status BROCK BURNHAM 06/07/2024 07:40:28 Final Observation Date Value Abnormality Reference (Units ) Status Cancer Ag 125 06/07/2024 07:40:28 8.8 <=38.1 (U/mL) Final Performing Location [facility] - [address] [place] [id number]
--- OUTSIDE RECORDS SUMMARY | 2024-10-01 03:35 | External Medical Summary | Summary of Care ---
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 [facility] What condition is the patient being referred for? Urinary Incontinence/Overactive Bladder Reason for Visit * Reason Onset Date Comments Test Results Lab 04/29/2024 Encounter Details Date Type Department Care Team (Late st Contact Info) Description 04/29/2024 Telephone Family Medicine [address] [phone] Lashawn Mejia MD [address] [place] [address] [place] [address] Test Results Lab Allergies Active Allergy Reactions Criticality Noted Date Comments Gabapentin Neuro complications (Please comment),Tachycardia 02/06/2023 Hallucinations documented as of this encounter (statuses as of 05/07/2024) Medications Medication Sig Dispensed Refills Start Date End Date Status Lisinopril 5 MG Oral Tablet (Prinivil)Indication s:HTN, goal below 140/90 Take by mouth 1 Tablet in the morning. 90 Tablet 1 12/18/2022 Active dexAMETHasone 4 MG Oral TabletIndications:En dometrial cancer (HCC) Take 5 tab (20 mg) 12 and 6 hours before chemo 60 Tablet 08/26/2023 Active Ondansetron HCl 8 MG Oral TabletIndications:En dometrial cancer (HCC) Take 1 Tablet by mouth every 8 hours as needed for Nausea. 30 Tablet 08/26/2023 Active Lidocaine-Prilocaine 2.5-2.5 % External Cream (Emla)Indications:En dometrial cancer (HCC) APPLY TO SKIN OVER MEDIPORT & COVER 1HR PRIOR TO ACCESSING. 30 g 1 09/08/2023 Active Pregabalin 50 MG Oral Capsule (Lyrica)Indications: Endometrial cancer (HCC) Take 1 Capsule by mouth in the morning and 1 Capsule before bedtime. 60 Capsule 11/20/2023 Active Levothyroxine Sodium 200 MCG Oral Tablet (Levoxyl)Indications :Acquired hypothyroidism Take 1 Tablet by mouth daily first thing in the morning. (at least 30 min prior to breakfast or other meds) 90 Tablet 1 01/01/2024 Active oxyCODONE-Acetaminop hen 5-325 MG Oral Tablet (Percocet)Indication s:Endometrial cancer (HCC) Take 1 Tablet by mouth every 4 hours as needed for Pain, Moderate. 60 Tablet 01/27/2024 Active rOPINIRole HCl 3 MG Oral TabletIndications:Re stless legs syndrome Take 1 Tablet by mouth in the morning and 1 Tablet at noon and 1 Tablet in the evening and 1 Tablet before bedtime. 120 Tablet 3 04/20/2024 Active buPROPion HCl ER (XL) 150 MG Oral Tablet Extended Release 24 Hour (Wellbutrin XL) Take 1 Tablet by mouth in the morning. 30 Tablet 5 04/28/2024 Active Nortriptyline HCl 25 MG Oral Capsule (Pamelor)Indications :Chemotherapy-induce d peripheral neuropathy (HCC) Take 1 Capsule by mouth at bedtime. Do not start before May 06, 2024. 30 Capsule 5 05/06/2024 Active clonazePAM 0.5 MG Oral Tablet (KlonoPIN)Indication s:RLS (restless legs syndrome) Take 1-2 tablets per mouth at bedtime. 60 Tablet 2 04/29/2024 Active Nitrofurantoin Monohyd Macro 100 MG Oral Capsule (Macrobid) Take 1 Capsule by mouth in the morning and 1 Capsule before bedtime. Do all this for 7 days. With food until gone. 14 Capsule 04/29/2024 05/06/2024 documented as of this encounter (statuses as of 05/07/2024) Active Problems Problem Noted Date Diagnosed Date Encounter for antineoplastic chemotherapy 2023 Vulvar irritation 05/12/2023 Overview: BIOPSY (05/06/2023) -- BENIGN A. Skin, right vulva, biopsy: Benign mature sebaceous glands with minimal inflammation. Negative for dysplasia and malignancy. Comment: The findings are non-specific, although sebaceous hyperplasia was considered. Clinical correlation is required to determine if the biopsy if inside sales account representative. B. Skin, left vulva, biopsy: [...] 02/25/2015 DDD (degenerative disc disease), cervical 2014 Overview: mild DDD C5-6 and C6-7 CHON (obstructive sleep apnea) 01/03/2012 Overview: Mild on PSG , AHI 8.0 Severe on PSG 01/2010, AHI 41.0, RDI 41 Urge incontinence of urine 12/05/2011 Dyslipidemia, goal LDL below 100 09/21/2010 Other allergic rhinitis 02/15/2009 Overview: ICD-10 update of inactive term Restless legs syndrome 02/06/2007 ADVANCE DIRECTIVE INFORMATION 06/05/2005 Overview: No, Advance Directive brochure given to patient at prior appointment. ABN LIVER FUNCTION STUDY 08/22/2004 Persistent insomnia 05/04/2004 Panic disorder 05/06/2003 Anxiety state 05/06/2003 Acquired hypothyroidism 01/12/2003 Pseudotumor cerebri syndrome 03/30/2001 Vitamin B deficiency Vitamin D deficiency Female stress incontinence documented as of this encounter (statuses as of 05/07/2024) Resolved Problems Problem Noted Date Diagnosed Date Resolved Date Class 3 severe obesity in adult 01/01/2022 09/18/2022 Overview: 51 Obesity, morbid (more than 1 00 lbs over ideal weight or BMI > 40) 08/24/2015 04/10/2017 Overview: Per Obesity protocol #1 Other iron deficiency anemia 03/27/2011 01/04/2013 Overview: ICD-10 update of inactive term Adult body mass index 50.0-59.9 09/21/2010 01/16/2023 Obesity, morbid (more than 1 00 lbs over ideal weight or BMI > 40) 10/03/2009 09/21/2010 Overview: Per Obesity Taxonomy ICD-10 update of inactive term EXTRAPYRAMIDAL DIS NEC 09/30/200509/27 Restless leg syndrome 09/30/20052006 Morbid obesity, BMI not known 05/04/2004 10/03/2009 Overview: Per Obesity Taxonomy Obstructive sleep apnea of adult 02/16/2015 documented as of this encounter (statuses as of 05/07/2024) Immunizations Name Administration Dates Next Due Seasonal [...] ages 0-17 years) Not on file 04/27/2024 Sex and Gender Information Value Date Recorded Sex Assigned at Female 01/14/2022 1:43 AM EDT Gender Identity Female 01/14/2022 1:43 AM EDT Sexual Orientation Straight 01/14/2022 1: 43 AM EDT Job Start Date Occupation Industry Not on file Not on file Not on file documented as of this encounter Miscellaneous Notes * Addendum Note - Lashawn Mejia MD - 05/07/2024 3:14 PM EDT Addended by: LASHAWN AGUILAR on: 05/07/2024 03:14 PM Modules accepted: Orders * Telephone Encounter - Lashawn Mejia MD - 04/29/2024 5:26 PM EDT UA result suggests infection. Rx macrobid sent. MyG sent to patient. documented in this encounter Plan of Treatment Upcoming Encounters Date Type Department Care Team (Late st Contact Info) Description 06/09/2024 10:00 AM EST Laboratory Laboratory, [facility] [address] [facility] [place] [phone] [facility] [place] [address] 06/09/2024 10:15 AM EST Imaging Radiology [facility]st [facility] [place] [address] 06/16/2024 10:00 AM EST Immunization/Injection Hematology/Oncology Treatment, [place] [address] [place] [phone] Park, Chair 9 Hem Onc [facility] [address] [place] [address] 06/16/2024 10:30 AM EST Office Visit Hematology/Oncology [facility] [place] [address] [place] [phone] Flaquita Wilson MD [address] [place] [address] 09/02/2024 9:20 AM EST Telemedicine Neurology [address] [place] [phone] Clif Mckeon MD [address] [facility] [id number] 11/30/2024 9:00 AM EDT Office Visit Sleep Disorders Ctr [facility] 132 [place] [phone] Silvia Holt CRNP [address] [facility] [address] Scheduled Orders Name Type Priority Associated Diagnoses Orde r Schedule URINALYSIS, REFLEX TO CULTURE (NOT FOR NEUTROPENIC PATIENTS) Lab Routine Mixed incontinence urge and stress (male)(female) Expected: 05/07/2024, Expires: 05/07/2025 Scheduled Referrals Name Type Priority Associated Diagnoses Orde r Schedule UROGYNECOLOGY CLINIC REFERRAL OP (FEMALE ONLY) Referral Within 10 days (routine) Mixed incontinence urge and stress (male)(female) Ordered: 05/07/2024 Health Maintenance Due Date Last Done Comments [...] 023, 12/14/2020, 10/21/2007 CKD PHOS USE SMARTSET 60685 12/26/2023 06/2 07/2022, 01/16/2016, 02/16/2015, Additional history exists HbA1c 12/26/2023 12/25/2022, 07/0 07/2021, 12/14/2020, Additional history exists COVID-19 Vaccine ( season) 2024 Influenza Vaccine (FLU shot) (#1) 2024 05/14/2010 TSH 03/21/2024 03/21/2023, 08/0 09/2022, 12/25/2022, Additional history exists GFR 10/08/2024 04/09/2024, 09/0 10/2023, 02/17/2024, Additional history exists CKD HGB USE SMARTSET 47894 03/10/202503/10, 03/10/2024, 02/17/2024, Additional history exists Lipid [...] this encounter Medical Devices Implanted Type Area Vp Research Device Identifier Shelf Expiration Date Model / Serial / Lot Port Implant W8f Poly Cath - [id number] Implanted:Qty : 1 on 09/05/2023 by Orville Zendejas MD at [facility] Right: Chest CR BARD : PERIPHERAL VASCULAR [id number] 06/05/2024 [id number] / / [id number] documented as of this encounter Visit Diagnoses Diagnosis Mixed incontinence urge and stress (male)(female)- Primary documented in this encounter Advance Directives * Full Code (Latest Code Status on File) Date Activated Date Inactivated Comments 02/19/2022 1:10 PM 02/19/2022 8:22 PM This order r eflects the patients wishes and were consensually agreed upon. Question Answer Comments Discussion of Advance Directives occurred with: Not Discussed Care Teams Hat Trimmer Relationship Specialty Start Date End Date Lashawn Mejia MD [address] [place] [address] [place] [phone] PCP - General Family Medicine 09/22/20 documented as of this encounter
--- OUTSIDE RECORDS SUMMARY | 2024-10-01 03:35 | External Medical Summary | Summary of Care ---
Author Name Unknown Organization [facility] Address [address] [place] [address] Phone [phone] Care Team Providers Care Communication Specialist Name Role Phone Lashawn Mejia MD Primary Care Prov ider Reason for Visit * Reason Onset Date Comments Advice 05/13/2024 Js Cain Encounter Details Date Type Department Care Team (Late st Contact Info) Description 05/13/2024 Telephone Hematology/Oncology [facility] [address] [place] [phone] Services, Scheduling [address] [place] [address] Advice (Js Cain) Allergies Active Allergy Reactions Criticality Noted Date Comments Gabapentin Neuro complications (Please comment),Tachycardia 02/06/2023 Hallucinations documented as of this encounter (statuses as of 05/13/2024) Medications Medication Sig Dispensed Refills Start Date End Date Status Lisinopril 5 MG Oral Tablet (Prinivil)Indications :HTN, goal below 140/90 Take by mouth 1 Tablet in the morning. 90 Tablet 1 12/18/2022 Active dexAMETHasone 4 MG Oral TabletIndications:End ometrial cancer (HCC) Take 5 tab (20 mg) 12 and 6 hours before chemo 60 Tablet 08/26/2023 Active Ondansetron HCl 8 MG Oral TabletIndications:End ometrial cancer (HCC) Take 1 Tablet by mouth every 8 hours as needed for Nausea. 30 Tablet 08/26/2023 Active Lidocaine-Prilocaine 2.5-2.5 % External Cream (Emla)Indications:End ometrial cancer (HCC) APPLY TO SKIN OVER MEDIPORT & COVER 1HR PRIOR TO ACCESSING. 30 g 1 09/08/2023 Active Pregabalin 50 MG Oral Capsule (Lyrica)Indications:E ndometrial cancer (HCC) Take 1 Capsule by mouth in the morning and 1 Capsule before bedtime. 60 Capsule 11/20/2023 Active Levothyroxine Sodium 200 MCG Oral Tablet (Levoxyl)Indications: Acquired hypothyroidism Take 1 Tablet by mouth daily first thing in the morning. (at least 30 min prior to breakfast or other meds) 90 Tablet 1 01/01/2024 Active oxyCODONE-Acetaminoph en 5-325 MG Oral Tablet (Percocet)Indications :Endometrial cancer (HCC) Take 1 Tablet by mouth every 4 hours as needed for Pain, Moderate. 60 Tablet 01/27/2024 Active rOPINIRole HCl 3 MG Oral TabletIndications:Res tless legs syndrome Take 1 Tablet by mouth [...] Active Nortriptyline HCl 25 MG Oral Capsule (Pamelor)Indications: Chemotherapy-induced peripheral neuropathy (HCC) Take 1 Capsule by mouth at bedtime. Do not start before May 06, 2024. 30 Capsule 5 05/06/2024 Active clonazePAM 0.5 MG Oral Tablet (KlonoPIN)Indications :RLS (restless legs syndrome) Take 1-2 tablets per mouth at bedtime. 60 Tablet 2 04/29/2024 Active documented as of this encounter (statuses as of 05/13/2024) Active Problems Problem Noted Date Diagnosed Date Encounter for antineoplastic chemotherapy 2023 Vulvar irritation 05/12/2023 Overview: BIOPSY (05/06/2023) -- BENIGN A. Skin, right vulva, biopsy: Benign mature sebaceous glands with minimal inflammation. Negative for dysplasia and malignancy. Comment: The findings are non-specific, although sebaceous hyperplasia was considered. Clinical correlation is required to determine if the biopsy if accounting representative. B. Skin, left vulva, biopsy: [...] as of this encounter (statuses as of 05/13/2024) Resolved Problems Problem Noted Date Diagnosed Date [...] syndrome 09/30/20052006 ADVANCE DIRECTIVE INFORMATION 06/05/2005 05/10/2024 Overview: No, Advance Directive brochure given to patient at prior appointment. Morbid obesity, BMI not known 05/04/2004 10/03/2009 Overview: Per Obesity Taxonomy Obstructive sleep apnea of adult 02/16/2015 documented as of this encounter (statuses as of 05/13/2024) Immunizations Name Administration Dates Next Due Seasonal [...] encounter Miscellaneous Notes * Telephone Encounter - Buochra Webster RN - 05/13/2024 11:19 AM EST Called patient- she states that someone told her that she could apply for Qumas again within 3 months of completing chemotherapy. Checked application and confirmed this- patient has until beginning of June to re-apply. Mailed [employer] application to patients home address, she states that she will drop it back off tous to fax in for her when completed. * Telephone Encounter - Brenton Hilton OSA - 05/13/2024 11:03 AM EST Patient called in asking for Bouchra Webster to give her a call back. She would like to discuss the [employer] Q Funding. documented in this encounter Plan of Treatment Upcoming Encounters Date Type Department Care Team (Late st Contact Info) Description 06/09/2024 10:00 AM EST Laboratory Laboratory, [facility] [place] [phone] [facility] [place] [address] 06/09/2024 10:15 AM EST Imaging Radiology [facility] 1st Floor, [place] 132 [facility] [place] [address] 06/16/2024 10:00 AM EST Immunization/Injection Hematology/Oncology Treatment, [place] [address] [place] [phone] Rosario, Chair 9 Hem Onc [facility] 200 [facility] [place] [address] 06/16/2024 10:30 AM EST Office Visit Hematology/Oncology [facility] [place] [address] [place] [phone] Flaquita Wilson MD [address] [place] [address] 07/01/2024 9:05 AM EST Office Visit Urogynecology [facility] [place] [address] Shanti Cummings PA-C [address] [place] [address] Nurse Marques Belcher [address] [place] [address] 09/02/2024 9:20 AM EST Telemedicine Neurology [address] [place] [address] Clif Mckeon MD [address] [place] [address] 11/30/2024 9:00 AM EDT [facility] [address] [place] [phone] Silvia Holt CRNP [address] [place] [address] Health Maintenance Due Date Last Done Comments [...] 023, 12/14/2020, 10/21/2007 CKD PHOS USE SMARTSET 64926 12/26/2023/07/2022, 01/16/2016, 02/16/2015, Additional history exists HbA1c 12/26/2023 12/25/2022, 07/0 07/2021, 12/14/2020, Additional history exists COVID-19 Vaccine ( season) 2024 Influenza Vaccine (FLU shot) (#1) 2024 05/14/2010 TSH 03/21/2024 03/21/2023, 09/2022, 12/25/2022, Additional history exists GFR 10/08/2024 04/09/2024, 10/2023, 02/17/2024, Additional history exists CKD HGB USE SMARTSET 91820 03/10/202503/10, 03/10/2024, 02/17/2024, Additional history exists Lipid [...] this encounter Medical Devices Implanted Type Area Helicopter Officer Device Identifier Shelf Expiration Date Model / Serial / Lot Port Implant W8f Poly Cath - [id number] Implanted:Qty : 1 on 09/05/2023 by Orville Zendejas MD at [facility] Right: Chest CR BARD : PERIPHERAL VASCULAR [id number] 06/05/2024 [id number] / / [id number] documented as of this encounter Advance Directives * Full Code (Latest Code Status on File) Date Activated Date Inactivated Comments 02/19/2022 1:10 PM 02/19/2022 8:22 PM This order r eflects the patients wishes and were consensually agreed upon. Question Answer Comments Discussion of Advance Directives occurred with: Not Discussed Care Teams Communication Specialist Relationship Specialty Start Date End Date Lashawn Mejia MD [address] [place] [address] [place] [address] PCP - General Family Medicine 09/22/20 documented as of this encounter
--- OUTSIDE RECORDS SUMMARY | 2024-10-01 03:35 | External Medical Summary ---
Author Name Unknown Address Unknown Organization K01:[place] [facility] [address] [facility] [address] Laboratory Report Ordering Provider Test Date Status BROCK BURNHAM 06/07/2024 07:40:28 Final Observation Date Value Abnormality Reference (Units ) Status Iron 06/07/2024 07:40:28 51 33-151 (ug /dL) Final Iron-binding capacity 06/07/2024 07:40:28 312 250-425 (ug/dL) Final Transferrin Sat % 06/07/2024 07:40:28 16 15 -55 (%) Final Performing Location [place] [facility] [place] [address] [facility] [address]
--- OUTSIDE RECORDS SUMMARY | 2024-10-01 03:35 | External Medical Summary ---
Author Name Unknown Address Unknown Organization K01:[place] [facility] [place] [address] [facility] [address] Laboratory Report Ordering Provider Test Date Status BROCK BURNHAM 06/07/2024 07:40:28 Final Observation Date Value Abnormality Reference (Units ) Status WBC, Total 06/07/2024 07:40:28 7.54 4.00-10.80 (K/uL) Final RBC 06/07/2024 07:40:28 4.05 3.85-5.15 (M/uL) Final Hemoglobin 06/07/2024 07:40:28 11.8 Below low normal 12.0-15.3 (g/dL) Final HCT 06/07/2024 07:40:28 38.5 36.0-45.2 (%) Final MCV 06/07/2024 07:40:28 95.1 81.5-97.5 (fL) Final MCH 06/07/2024 07:40:28 29.1 27.0-34.0 (pg) Final MCHC 06/07/2024 07:40:28 30.6 32.0-36.0 (g/dL) Final RDW 06/07/2024 07:40:28 14.6 11.5-15.5 (%) Final Platelets 06/07/2024 07:40:28 316 140-400 (K/uL) Final MPV 06/07/2024 07:40:28 8.3 6.6-11.1 (fL) Final Nucleated erythrocytes/100 leukocytes [Ratio] in Blood by Automated count 06/07/2024 07:40:28 0 <=0 (/100 WBCs) Final Performing Location [place]ORY [facility] [place] [address] [place] [address]
--- OUTSIDE RECORDS SUMMARY | 2024-10-01 03:35 | External Medical Summary ---
Author Name Unknown Address Unknown Organization K01:[place]ORY [facility] [place] [address] [facility] [address] Laboratory Report Ordering Provider Test Date Status BROCK BURNHAM 05/12/2024 07:57:57 Final Observation Date Value Abnormality Reference (Units ) Status Iron 05/12/2024 07:57:57 51 33-151 (ug /dL) Final Iron-binding capacity 05/12/2024 07:57:57 319 250-425 (ug/dL) Final Transferrin Sat % 05/12/2024 07:57:57 16 15 -55 (%) Final Performing Location [place]ORY [facility] [place] [address] [facility] [address]
--- OUTSIDE RECORDS SUMMARY | 2024-10-01 03:35 | External Medical Summary | Summary of Care ---
Author Name Unknown Organization [facility] Address [address] [place] [address] Phone [phone] Care Team Providers Care Pharmaceutical Process Engineer Name Role Phone Lashawn Mejia MD Primary Care Prov ider Reason for Visit * Reason Comments Outpatient Testing Encounter Details Date Type Department Care Team (Late st Contact Info) Description 05/12/2024 8:10 AM EST Laboratory Laboratory [address] [place] [phone] [place] [address] Endometrial cancer (HCC); Restless legs; Mixed incontinence urge and stress (male)(female) Allergies Active Allergy Reactions Criticality Noted Date Comments Gabapentin Neuro complications (Please comment),Tachycardia 02/06/2023 Hallucinations documented as of this encounter (statuses as of 05/12/2024) Medications Medication Sig Dispensed Refills Start Date [...] as of this encounter (statuses as of 05/12/2024) Active Problems Problem Noted Date Diagnosed Date Encounter for antineoplastic chemotherapy 2023 Vulvar irritation 05/12/2023 Overview: BIOPSY (05/06/2023) -- BENIGN A. Skin, right vulva, biopsy: Benign mature sebaceous glands with minimal inflammation. Negative for dysplasia and malignancy. Comment: The findings are non-specific, although sebaceous hyperplasia was considered. Clinical correlation is required to determine if the biopsy if insurance sales representative. B. Skin, left vulva, biopsy: [...] as of this encounter (statuses as of 05/12/2024) Resolved Problems Problem Noted Date Diagnosed Date [...] as of this encounter (statuses as of 05/12/2024) Immunizations Name Administration Dates Next Due Seasonal [...] Description 06/09/2024 10:00 AM EST Laboratory Laboratory, [facility] [address] [place] [phone] Luis Belcher [address] [place] [address] 06/09/2024 10:15 AM EST Imaging Radiology [facility] 1st Floor, [place] [address] [place] [address] 06/16/2024 10:00 AM EST Immunization/Injection Hematology/Oncology Treatment, [place] [address] [place] [address] Park, Chair 9 Hem Onc Scenery [address] [place] [address] 06/16/2024 10:30 AM EST Office Visit Hematology/Oncology [facility] [place] [address] [place] [phone] Flaquita Wilson MD [address] [place] [address] 07/01/2024 9:05 AM EST Office Visit Urogynecology [facility] [address] [place] [address] Shanti Cummings PA-C [address] [place] [address] Nurse Marques Belcher Jett [address] [place] [address] 09/02/2024 9:20 AM EST Telemedicine Neurology [address] [place] [phone] Clif Mckeon MD [address] [facility] [place] [address] 11/30/2024 9:00 AM EDT [facility] 132 [facility] [place] [phone] Silvia Holt CRNP [address] [facility], [place] [phone] Pending Results Name Type Priority Associated Diagnoses Date /Time FERRITIN Lab Routine Endometrial cancer (HCC) Restless legs 05/12/2024 7:57 AM EST IRON SCREEN, INCLUDING TIBC Lab Routine Endometrial cancer (HCC) Restless legs 05/12/2024 7:57 AM EST URINALYSIS, REFLEX TO CULTURE (NOT FOR NEUTROPENIC PATIENTS) Lab Routine Mixed incontinence urge and stress (male)(female) 05/12/2024 7:57 AM EST URINALYSIS, REFLEX TO CULTURE (CUP ONLY) Lab Routine Mixed incontinence urge and stress (male)(female) 05/12/2024 7:57 AM EST URINALYSIS, REFLEX TO CULTURE Lab Routine Mixed incontinence urge and stress (male)(female) 05/12/2024 7:57 AM EST Health Maintenance Due Date Last [...] 023, 12/14/2020, 10/21/2007 CKD PHOS USE SMARTSET 54916 12/26/2023 06/2 07/2022, 01/16/2016, 02/16/2015, Additional history exists HbA1c 12/26/2023 12/25/2022, 07/07/2021, 12/14/2020, Additional history exists COVID-19 Vaccine ( season) 2024 Influenza Vaccine (FLU shot) (#1) 2024 05/14/2010 TSH 03/21/2024 03/21/2023, 08/0 09/2022, 12/25/2022, Additional history exists GFR 10/08/2024 04/09/2024, 09/0 10/2023, 02/17/2024, Additional history exists CKD HGB USE SMARTSET 72499 03/10/202503/10, 03/10/2024, 02/17/2024, Additional history exists Lipid [...] this encounter Medical Devices Implanted Type Area Event Designer Device Identifier Shelf Expiration Date Model / Serial / Lot Port Implant W8f Poly Cath - [id number] Implanted:Qty : 1 on 09/05/2023 by Orville Zendejas MD at [facility] Right: Chest CR BARD : PERIPHERAL VASCULAR [id number] 06/05/2024 [id number] / / [id number] documented as of this encounter Visit Diagnoses Diagnosis Endometrial cancer (HCC) Malignant neoplasm of corpus uteri, except isthmus Restless legs Restless legs syndrome (RLS) Mixed incontinence urge and stress (male)(female) documented in this encounter Advance Directives * Full Code (Latest Code Status on File) Date Activated Date Inactivated Comments 02/19/2022 1:10 PM 02/19/2022 8:22 PM This order r eflects the patients wishes and were consensually agreed upon. Question Answer Comments Discussion of Advance Directives occurred with: Not Discussed Care Teams Pharmaceutical Process Engineer Relationship Specialty Start Date End Date Lashawn Mejia MD [address] [place] [address] [place] [address] PCP - General Family Medicine 09/22/20 documented as of this encounter
--- OUTSIDE RECORDS SUMMARY | 2024-10-01 03:35 | External Medical Summary ---
Author Name Unknown Address Unknown Organization K01:LAB[place]ATORY [facility] [place] [address] [facility] [address] Laboratory Report Ordering Provider Test Date Status EARL CLEMONS 05/12/2024 07:57:57 Final Observation Date Value Abnormality Reference (Units ) Status Color of Urine by Auto 05/12/2024 07:57:57 Dark Yellow Colorless, Light Yellow, Yellow, Dark Yellow Final Clarity, Urine 05/12/2024 07:57:57 Slightly Cloudy Abnormal Clear Final Glucose [Mass/volume] in Urine by Automated test strip 05/12/2024 07:57:57 Negative Negative (mg/dL) Final Bilirubin.total [Presence] in Urine by Automated test strip 05/12/2024 07:57:57 Negative Negative Final Ketones [Mass/volume] in Urine by Automated test strip 05/12/2024 07:57:57 Negative Negative (mg/dL) Final Specific gravity, Urine 05/12/2024 07:57:57 1.028 1.003-1.030 Final Hemoglobin [Presence] in Urine by Automated test strip 05/12/2024 07:57:57 Large Abnormal Negative Final pH, Urine 05/12/2024 07:57:57 6.0 5.0-7.5 (Units) Final Protein [Mass/volume] in Urine by Automated test strip 05/12/2024 07:57:57 30 Abnormal Negative (mg/dL) Final Urobilinogen [Mass/volume] in Urine by Automated test strip 05/12/2024 07:57:57 Normal Normal (mg/dL) Final Nitrite [Presence] in Urine by Automated test strip 05/12/2024 07:57:57 Negative Negative Final Leukocyte esterase [Presence] in Urine by Automated test strip 05/12/2024 07:57:57 Moderate Abnormal Negative Final RBC, Urine 05/12/2024 07:57:57 50+ Abnormal 0-2 (/HPF) Final WBC, Urine 05/12/2024 07:57:57 50+ Abnormal 0-2 (/HPF) Final Bacteria [#/area] in Urine sediment by Microscopy high power field 05/12/2024 07:57:57 51-100 Abnormal 0-25 (/HPF) Final [facility]ULTURE, [facility] 05/12/2024 07:57:57 Final Quantitative urine culture t o be performed Performing Location LAB[facility]ATORY [facility] [place] - [facility] [address]. [facility] [address]
--- OUTSIDE RECORDS SUMMARY | 2024-10-01 03:35 | External Medical Summary | Summary of Care ---
Author Name Unknown Organization [facility] Address [address] [place] [address] Phone [phone] Care Team Providers Care Director Of Federal Sales Name Role Phone Lashawn Mejia MD Primary Care Prov ider Reason for Visit * Reason Comments Procedure Port flush Encounter Details Date Type Department Care Team (Late st Contact Info) Description 04/29/2024 8:45 AM EDT Nurse Only Hematology/Oncology Treatment, [address] [phone] Park, Chair 2 Hem On[address] [address] Procedure (Port flush) Allergies Active Allergy Reactions Criticality Noted Date Comments Gabapentin Neuro complications (Please comment),Tachycardia 02/06/2023 Hallucinations documented as of this encounter (statuses as of 05/17/2024) Medications Lisinopril 5 MG Oral Tablet (Prinivil)Indicati [...] the morning. 30 Tablet 5 4 Active documented as of this encounter (statuses as of 05/17/2024) Active Problems Problem Noted Date Diagnosed Date Encounter for antineoplastic chemotherapy 2023 Vulvar irritation 05/12/2023 Overview (05/12/2023): BIOPSY (05/06/2023) -- BENIGN A. Skin, right vulva, biopsy: Benign mature sebaceous glands with minimal inflammation. Negative for dysplasia and malignancy. Comment: The findings are non-specific, although sebaceous hyperplasia was considered. Clinical correlation is required to determine if the biopsy if electroplating sales representative. B. Skin, left vulva, biopsy: [...] as of this encounter (statuses as of 05/17/2024) Resolved Problems Problem Noted Date Diagnosed Date [...] as of this encounter (statuses as of 05/17/2024) Immunizations Name Administration Dates Next Due Seasonal [...] as of this encounter Nursing Notes * Judy Ann, RN - 04/29/2024 10:41 AM EDT Chair 10. Patient here for port flush. VAD (Venous Access Device) accessed with #19G 3/4" without difficulty.VAD no blood return flushed with 3-10 ml NSS and Heparin 5 ml (100 units/ml). Staton needle removed intact. Requesting order for Cathflo. Patient had an appointment therefore patient discharged to appointment, patient will return after appointment for further treatment. Pt discharged in stable condition. documented in this encounter Plan of Treatment Upcoming Encounters Date Type Department Care Team (Late st Contact Info) Description 06/09/2024 10:00 AM EST Laboratory Laboratory, [facility] 132 [facility] [place] [phone] Luis Belcher [facility] [place] [address] 06/09/2024 10:15 AM EST Imaging Radiology [facility] 1st Floor, [place] [address] [facility] [place] [address] 06/16/2024 10:00 AM EST Immunization/Injection Hematology/Oncology Treatment, [place] [facility] [phone] Rosario, Chair 9 Hem On[address] [place] [address] 06/16/2024 10:30 AM EST Office Visit Hematology/Oncology [facility] [place] 200 [place] [phone] Flaquita Wilson MD 200 [place] [address] 07/01/2024 9:05 AM EST Office Visit Urogynecology [facility] [address] [place] [address] Shanti Cummings PA-C [address] [place] [address] Nurse Marques Belcher [address] [place] [address] 09/02/2024 9:20 AM EST Telemedicine Neurology [address] [place], [place] [phone] Clif Mckeon MD [address] [place] [address] 11/30/2024 9:00 AM EDT Office Visit Sleep Disorders Ctr [facility] [address] [place] [phone] Silvia Holt CRNP [address] [place] [address] Health Maintenance Due Date Last Done Comments [...] 023, 12/14/2020, 10/21/2007 CKD PHOS USE SMARTSET 08969 12/26/2023/2 07/2022, 01/16/2016, 02/16/2015, Additional history exists HbA1c 12/26/2023 12/25/2022, 07/07/2021, 12/14/2020, Additional history exists COVID-19 Vaccine ( season) 2024 Influenza Vaccine (FLU shot) (#1) 2024 05/14/2010 TSH 03/21/2024 03/21/2023, 080 09/2022, 12/25/2022, Additional history exists GFR 10/08/2024 04/09/2024, 090 10/2023, 02/17/2024, Additional history exists CKD HGB USE SMARTSET 45882 03/10/202503/10, 03/10/2024, 02/17/2024, Additional history exists Lipid [...] this encounter Medical Devices Implanted Type Area Aircraft Engine Cylinder Mechanic Device Identifier Shelf Expiration Date Model / Serial / Lot Port Implant W8f Poly Cath - [id number] Implanted:Qty : 1 on 09/05/2023 by Orville Zendejas MD at OR [facility] Right: Chest CR BARD : PERIPHERAL VASCULAR [id number] 06/05/2024 [id number] / / [id number] documented as of this encounter Visit Diagnoses Diagnosis Endometrial cancer (HCC)- Primary Malignant neoplasm of corpus uteri, except isthmus Encounter for adjustment and management of vascular access device documented in this encounter Administered Medications Inactive Administered Medications - up to 3 most recent administrations Medication Order MAR Action Action Date Dose Rate Site hEParin 100 UNIT/ML Lock Flush inj 500 Units 500 Units (5 mL), IV Lock, PRN Other, IV Flush, Starting on Mary 04/29/24 at 1024, Until Mary 04/29/24 at 1115, For 24 hours, Do not flush if lock, PICC, or central line not in place; IV infusing or unable to flush.Indications:Endometrial cancer (HCC) Given 04/29/2024 9:00 AM EDT 500 Units sodium chloride 0.9 % flush central line 10 mL 10 mL, IV Push, PRN Other, IV Flush, Starting on Mary 04/29/24 at 1024, Until Mary 04/29/24 at 1115, For 24 hours, Do not flush if lock, PICC, or central line not in place; IV infusing or unable to flush.Indications:Endometrial cancer (HCC) Given 04/29/2024 9:00 AM EDT 10 mL documented in this encounter Advance Directives * Full Code (Latest Code Status on File) Date Activated Date Inactivated Comments 02/19/2022 1:10 PM 02/19/2022 8:22 PM This order r eflects the patients wishes and were consensually agreed upon. Question Answer Comments Discussion of Advance Directives occurred with: Not Discussed Care Teams Director Of Federal Sales Relationship Specialty Start Date End Date Lashawn Mejia MD [address] [place] [address] [place] [address] PCP - General Family Medicine 09/22/20 documented as of this encounter
--- OUTSIDE RECORDS SUMMARY | 2024-10-01 03:35 | External Medical Summary ---
Author Name Unknown Address Unknown Organization K01:LABORATORY [facility] [place] [address] [facility] [address] Laboratory Report Ordering Provider Test Date Status BROCK BURNHAM 06/07/2024 07:40:28 Final Observation Date Value Abnormality Reference (Units ) Status SYNC LEUKOCYTES IN BLOOD BY AUTOMATED COUNT 06/07/2024 07:40:28 7.54 4.00-10.80 (K/uL) Final Segs 06/07/2024 07:40:28 76.0 Above high normal 40.0-75.0 (%) Final Lymphs % 06/07/2024 07:40:28 10.5 Below low normal 18.0-42.0 (%) Final Monos 06/07/2024 07:40:28 9.2 1.0-11.0 (%) Final Eosinophils 06/07/2024 07:40:28 2.9 0.0-6.0 (%) Final Basos 06/07/2024 07:40:28 0.7 0.0-2.0 (%) Final Immature Granulocyte, Percent 06/07/2024 07:40:28 0.7 0.0-2.0 (%) Final Absolute Segs 06/07/2024 07:40:28 5.74 1.80-7.70 (K/uL) Final Lymphs, absolute 06/07/2024 07:40:28 0.79 Below low normal 1.00-4.80 (K/ul) Final Monos, Abs 06/07/2024 07:40:28 0.69 0.00-1.10 (K/uL) Final Eos, Abs 06/07/2024 07:40:28 0.22 0.00-0.70 (K/uL) Final Basos, Abs 06/07/2024 07:40:28 0.05 0.00-0.20 (K/uL) Final Immature Granulocytes, Number 06/07/2024 07:40:28 0.05 0.00-0.20 (K/uL) Final Performing Location LABORATORY [facility] [place] - [facility] [place] [address]
--- OUTSIDE RECORDS SUMMARY | 2024-10-01 03:35 | External Medical Summary | Summary of Care ---
Author Name Unknown Organization [facility] Address [address] [place] [address] Phone [phone] Care Team Providers Care Motorman/Woman Name Role Phone Lashawn Mejia MD Primary Care Prov ider Reason for Referral * Evaluate & Treat - Unlimited Visits (Within 10 days (routine)) - Authorized Specialty Diagnoses / Procedures Referred By Radha santana Referred To Contact PLATFORM BUILDER - Urogynecology / Gynecology Urology Diagnoses Mixed incontinence urge and stress (male)(female) Lashawn Mejia MD [address] [place] [address] [place] [address] Referral ID Status Reason Start Date Expiration Date Visits Requested Visits Authorized [id number] Authorized Specialty Services Required 05/07/2024 999 999 Question Answer Referral Priority Within 10 days (routine) Where should this appointment be scheduled? [facility] What condition is the patient being referred for? Urinary Incontinence/Overactive Bladder Reason for Visit * Reason Onset Date Comments Test Results Lab 04/29/2024 Encounter Details Date Type Department Care Team (Late st Contact Info) Description 04/29/2024 Telephone Family Medicine [address] [phone] Lashawn Mejia MD [address] [place] [address] [place] [address] Test Results Lab Allergies Active Allergy Reactions [...] encounter Miscellaneous Notes * Telephone Encounter - Nafisa Enciso LPN - 05/07/2024 4:28 PM EDT Urogyn referral placed- needs scheduled. * Addendum Note - Lashawn Mejia MD [...] 10:00 AM EST Laboratory Laboratory, [facility] [address] [facility] [place] [phone] [facility] [address] [facility] [place] [address] 06/09/2024 10:15 AM EST Imaging Radiology [facility] 1st Floor, [place] [address] [place] [address] 06/16/2024 10:00 AM EST Immunization/Injection Hematology/Oncology Treatment, [place] [address] [place] [address] Park, Chair 9 Hem Onc Scenery [address] [place] [address] 06/16/2024 10:30 AM EST Office Visit Hematology/Oncology [facility] [place] [address] [place] [phone] Flaquita Wilson MD [address] [place] [address] 07/01/2024 9:05 AM EST Office Visit Urogynecology [facility] [address] [facility] [place] [address] Shanti Cummings PA-C [facility] [address] Nurse Ye Urostephanie Jett [facility] [address] 09/02/2024 9:20 AM EST Telemedicine Neurology [address] [place] [phone] Clif Mckeon MD [address] [facility] [place] [address] 11/30/2024 9:00 AM EDT Office Visit Sleep Disorders Ctr [facility] [address] [facility] [place] [phone] Silvia Holt CRNP [address] [place] [address] Scheduled Orders Name Type Priority Associated Diagnoses [...] 023, 12/14/2020, 10/21/2007 CKD PHOS USE SMARTSET 92822 12/26/202312/06, 01/16/2016, 02/16/2015, Additional history exists HbA1c 12/26/2023 12/25/2022, 07/0 07/2021, 12/14/2020, Additional history exists COVID-19 Vaccine ( season) 2024 Influenza Vaccine (FLU shot) (#1) 2024 05/14/2010 TSH 03/21/2024 03/21/2023, 08/0 09/2022, 12/25/2022, Additional history exists GFR 10/08/2024 04/09/2024, 09/0 10/2023, 02/17/2024, Additional history exists CKD HGB USE SMARTSET 04805 03/10/202503/10, 03/10/2024, 02/17/2024, Additional history exists Lipid [...] this encounter Medical Devices Implanted Type Area Auto Inspector Device Identifier Shelf Expiration Date Model / Serial / Lot Port Implant W8f Poly Cath - [id number] Implanted:Qty : 1 on 09/05/2023 by Orville Zendejas MD at [facility] Right: Chest CR BARD : PERIPHERAL VASCULAR [id number] 06/05/2024 [id number] / / [id number] documented as of this encounter Visit Diagnoses [...] Directives occurred with: Not Discussed Care Teams Motorman/Woman Relationship Specialty Start Date End Date Lashawn Mejia MD [address] [place] [address] [place] [phone] PCP - General Family Medicine 09/22/20 documented as of this encounter
--- OUTSIDE RECORDS SUMMARY | 2024-10-01 03:35 | External Medical Summary ---
Author Name Unknown Address Unknown Organization K01:LABORATORY [facility] [place] - [address] [place] [address] Laboratory Report Ordering Provider Test Date Status BROCK BURNHAM 06/07/2024 07:40:28 Final Observation Date Value Abnormality Reference (Units ) Status BUN 06/07/2024 07:40:28 31 Above high normal 6-20 (mg/dL) Final Creatinine 06/07/2024 07:40:28 1.2 Above high normal 0.5-1.0 (mg/dL) Final Glomerular filtration rate/1.73 sq M.predicted [Volume Rate/Area] in Serum, Plasma or Blood by Creatinine-based formula (CKD-EPI) 06/07/2024 07:40:28 51 Below low normal >=60 (mL/min) Final eGFR is calculated based on the CKD-EPI 2020 equation. Sodium 06/07/2024 07:40:28 141 135-146 (m mol/L) Final Potassium 06/07/2024 07:40:28 4.4 3.5-5.1 (m mol/L) Final Cl 06/07/2024 07:40:28 102 98-107 (mm ol/L) Final CO2 06/07/2024 07:40:28 26 22-32 (mmo l/L) Final Anion gap 06/07/2024 07:40:28 13 7-15 (mmol /L) Final Glucose 06/07/2024 07:40:28 100 70-120 (mg /dL) Final Albumin 06/07/2024 07:40:28 4.2 3.8-5.0 (g /dL) Final AST (Aspartate aminotransferase) 06/07/2024 07:40:28 14 10-35 (U/L) Final Alk Phos 06/07/2024 07:40:28 109 35-130 (U/ L) Final Bilirubin, Total 06/07/2024 07:40:28 <0.2 <=1 .2 (mg/dL) Final Calcium 06/07/2024 07:40:28 9.7 8.4-10.2 ( mg/dL) Final Protein 06/07/2024 07:40:28 7.2 6.0-8.3 (g /dL) Final ALT (Alanine aminotransferase) 06/07/2024 07:40:28 22 10-35 (U/L) Final Performing Location LABORATORY [facility] [place] - [facility] [address] [facility] [address]
--- OUTSIDE RECORDS SUMMARY | 2024-10-01 03:35 | External Medical Summary | Summary of Care ---
Author Name Unknown Organization [facility] Address [address] [place] [address] Phone [phone] Care Team Providers Care Speech Pathology Supervisor Name Role Phone Lashawn Mejia MD Primary Care Prov ider Reason for Visit * Reason Comments Procedure Cathflo Encounter Details Date Type Department Care Team (Latest Contact Info) Description 04/29/2024 11:00 AM EDT Hem/Onc Treatment Hematology/Oncology Treatment, [address] [phone] Rosario, Chair 1 Hem Onc [address] [address] Endometrial cancer (HCC)*; Encounter for adjustment or management of vascular access device Allergies Active Allergy Reactions Criticality Noted Date [...] to determine if the biopsy if insurance healthcare representative. B. Skin, left vulva, biopsy: Mild [...] of this encounter Nursing Notes * Judy Ann RN - 04/29/2024 1:45 PM EDT Patient tolerated cathflo instillation without issue. See previous note. Patient discharged in stable condition with spouse. * Judy Ann RN - 04/29/2024 11:25 AM EDT Patient returned for Cathflo instillation. Port accessed remained with no blood return. Awaiting signed orders. Patient updated, awaiting orders. Instilled Cathflo per protocol. Waited 30 min and obtained blood return. Removed 10ml blood removed. Flushed port with 20 ml NSS and Heparin 100 U/ml 5 ml instilled. Staton needle removed intact and dry dressing applied. documented in this encounter Plan of Treatment Upcoming Encounters Date Type Department Care Team (Late st Contact Info) Description 06/09/2024 10:00 AM EST Laboratory Laboratory, [facility] 132 [facility] [place] [phone] [facility] 132 [facility] [place] [address] 06/09/2024 10:15 AM EST Imaging Radiology [facility] 1st Floor, [place] [address] [place] [address] 06/16/2024 10:00 AM EST Immunization/Injection Hematology/Oncology Treatment, [place] [address] [place] [phone] Rosario, Chair 9 Hem Onc [facility] 200 [place] [address] 06/16/2024 10:30 AM EST Office Visit Hematology/Oncology [facility] [place] [address] [place] [phone] Flaquita Wilson MD [address] [place] [address] 07/01/2024 9:05 AM EST Office Visit Urogynecology [facility] [address] [place] [address] Shanti Cummings PA-C [address] [place] [address] Nurse Marques Belcher [address] [place] [address] 09/02/2024 9:20 AM EST Telemedicine Neurology [address] [place] [phone] Clif Mckeon MD [address] [facility] [address] [place] [id number] 11/30/2024 9:00 AM EDT [facility] [address] [place] [phone] Silvia Holt CRNP [address] [place] [address] Health Maintenance Due Date Last Done Comments [...] 023, 12/14/2020, 10/21/2007 CKD PHOS USE SMARTSET 71210 12/26/202312/06, 01/16/2016, 02/16/2015, Additional history exists HbA1c 12/26/2023 12/25/2022, 07/0 07/2021, 12/14/2020, Additional history exists COVID-19 Vaccine ( season) 2024 Influenza Vaccine (FLU shot) (#1) 2024 05/14/2010 TSH 03/21/2024 03/21/2023, 09/2022, 12/25/2022, Additional history exists GFR 10/08/2024 04/09/2024, 10/2023, 02/17/2024, Additional history exists CKD HGB USE SMARTSET 52926 03/10/202503/10, 03/10/2024, 02/17/2024, Additional history exists Lipid [...] this encounter Medical Devices Implanted Type Area Collet Maker Device Identifier Shelf Expiration Date Model / Serial / Lot Port Implant W8f Poly Cath - [id number] Implanted:Qty : 1 on 09/05/2023 by Orville Zendejas MD at OR [facility] Right: Chest CR BARD : PERIPHERAL VASCULAR [id number] 06/05/2024 [id number] / / [id number] documented as of this encounter Visit Diagnoses Diagnosis Endometrial cancer (HCC)- Primary Malignant neoplasm of corpus uteri, except isthmus Encounter for adjustment or management of vascular access device Fitting and adjustment of other device documented in this encounter Administered Medications Inactive Administered Medications - up to 3 most recent administrations Medication Order MAR Action Action Date Dose Rate Site Alteplase (Cathflo Activase) inj 2 mg 2 mg, IV Push, ONCE, On Mary 04/29/24 at 1200, For 1 dose, *Obtain Alteplase (CathFlo Activase) *Reconstitute Alteplase (CathFlo Activase) 2 mg in 2.2 mL sterile water *Instill Alteplase (CathFlo Activase) into occluded lumen(s) *After 30 minutes dwell time in catheter, assess catheter patency by attempting to aspirate blood. If catheter is patent withdraw 3 mL of blood to remove Alteplase (CathFlo Activase) and residual clot. Flush lumen with 10 mL 0.9% normal saline *If catheter function is not restored allow for further dwell up to 120 minutes. *If catheter function is not restored, a second dose of Alteplase (CathFlo Activase) may be administered. *if catheter is still not restored call a physician Given 04/29/2024 11:33 AM EDT 2 mg documented in this encounter Advance Directives * Full Code (Latest Code Status on File) Date Activated Date Inactivated Comments 02/19/2022 1:10 PM 02/19/2022 8:22 PM This order r eflects the patients wishes and were consensually agreed upon. Question Answer Comments Discussion of Advance Directives occurred with: Not Discussed Care Teams Speech Pathology Supervisor Relationship Specialty Start Date End Date Lashawn Mejia MD [address] [place] [address] [place] [address] PCP - General Family Medicine 09/22/20 documented as of this encounter
--- OUTSIDE RECORDS SUMMARY | 2024-10-01 03:35 | External Medical Summary ---
Author Name Unknown Address Unknown Organization K01:LABORATORY [facility] [place] - [address] [place] [address] Laboratory Report Ordering Provider Test Date Status EARL CLEMONS 06/07/2024 07:40:28 Final Observation Date Value Abnormality Reference (Units) Status Bacteria identified in Specimen by Culture 06/07/2024 07:40:28 No significant growth Final Test: Culture, Urine, Quanti tative
Specimen Source: Urine, Clean Catch
Specimen Type: Urine
Specimen Date: 06/07/2024 0740
Result Date: 06/08/2024 1118
Result Status: Final result
Resulting Lab: [facility]
[address]
[facility] [address]

CULTURE

No significant growth

null Performing Location LABORATORY [facility] - [address] [facility] [address]
--- OUTSIDE RECORDS SUMMARY | 2024-10-01 03:35 | External Medical Summary | Summary of Care ---
Author Name Unknown Organization [facility] Address [address] [place] [address] Phone [phone] Care Team Providers Care Information Services Manager Name Role Phone Lashawn Mejia MD Primary Care Prov ider Reason for Visit * Reason Onset Date Comments Test Results Lab 04/29/2024 Encounter Details Date Type Department Care Team (Late st Contact Info) Description 04/29/2024 Telephone Family Medicine [address] [phone] Lashawn Mejia MD [address] [place] [address] Test Results Lab Allergies Active Allergy Reactions [...] Description 06/09/2024 10:00 AM EST Laboratory Laboratory, [facility] [phone] [address] [address] 06/09/2024 10:15 AM EST Imaging Radiology [facility] 1st Floor, [place] 132 [facility] [place] [address] 06/16/2024 10:00 AM EST Immunization/Injection Hematology/Oncology Treatment, [place] [address] [place] [phone] Rosario, Chair 9 Hem Onc [address] [place] [address] 06/16/2024 10:30 AM EST Office Visit Hematology/Oncology [facility] [place] 200 [facility] [place] [facility] [place] [phone] Flaquita Wilson MD 200 [facility] [place] [address] 09/02/2024 9:20 AM EST Telemedicine Neurology [address] [place] [phone] Clif Mckeon MD 100 [address] [facility] [place] [id number] 11/30/2024 9:00 AM EDT Office Visit Sleep Disorders Ctr [facility] 132 [facility] [place] [phone] Silvia Holt CRNP 132 [facility] [place] [address] Health Maintenance Due Date Last Done Comments [...] 023, 12/14/2020, 10/21/2007 CKD PHOS USE SMARTSET 83152 12/26/202312/06, 01/16/2016, 02/16/2015, Additional history exists HbA1c 12/26/2023 12/25/2022, 07/0 07/2021, 12/14/2020, Additional history exists COVID-19 Vaccine ( season) 2024 Influenza Vaccine (FLU shot) (#1) 2024 05/14/2010 TSH 03/21/2024 03/21/2023, 08/0 09/2022, 12/25/2022, Additional history exists GFR 10/08/2024 04/09/2024, 09/0 10/2023, 02/17/2024, Additional history exists CKD HGB USE SMARTSET 62897 03/10/202503/10, 03/10/2024, 02/17/2024, Additional history exists Lipid [...] this encounter Medical Devices Implanted Type Area Day Light Relief Operator Device Identifier Shelf Expiration Date Model / Serial / Lot Port Implant W8f Poly Cath - [id number] Implanted:Qty : 1 on 09/05/2023 by Orville Zendejas MD at [facility] Right: Chest CR BARD : PERIPHERAL VASCULAR [id number] 06/05/2024 [id number] / / [id number] documented as of this encounter Advance Directives * Full Code (Latest Code Status on File) Date Activated Date Inactivated Comments 02/19/2022 1:10 PM 02/19/2022 8:22 PM This order r eflects the patients wishes and were consensually agreed upon. Question Answer Comments Discussion of Advance Directives occurred with: Not Discussed Care Teams Information Services Manager Relationship Specialty Start Date End Date Lashawn Mejia MD [address] [place] [address] [place] [address] PCP - General Family Medicine 09/22/20 documented as of this encounter
--- OUTSIDE RECORDS SUMMARY | 2024-10-01 03:35 | External Medical Summary | Summary of Care ---
Author Name Unknown Organization [facility] Address [address] [place] [address] Phone [phone] Care Team Providers Care Medical Physicist Name Role Phone Lashawn Mejia MD Primary Care Prov ider Encounter Details Date Type Department Care Team (Late st Contact Info) Description 05/14/2024 Orders Only Hematology/Oncology [facility] [place] [address] [place] [phone] Flaquita Wilson MD [address] [place] [address] Allergies Active Allergy Reactions Criticality Noted Date Comments Gabapentin Neuro complications (Please comment),Tachycardia 02/06/2023 Hallucinations documented as of this encounter (statuses as of 05/14/2024) Medications Lisinopril 5 MG Oral Tablet (Prinivil)Indicati [...] as of this encounter (statuses as of 05/14/2024) Active Problems Problem Noted Date Diagnosed Date Encounter for antineoplastic chemotherapy 2023 Vulvar irritation 05/12/2023 Overview (05/12/2023): BIOPSY (05/06/2023) -- BENIGN A. Skin, right vulva, biopsy: Benign mature sebaceous glands with minimal inflammation. Negative for dysplasia and malignancy. Comment: The findings are non-specific, although sebaceous hyperplasia was considered. Clinical correlation is required to determine if the biopsy if employment representative. B. 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 [place] [address] 06/09/2024 10:15 AM EST Imaging Radiology [facility] 1st Floor, [place] 132 [facility] [place] [address] 06/16/2024 10:00 AM EST Immunization/Injection Hematology/Oncology Treatment, [place] [address] [place] [address] Rosario, Chair 9 Hem Onc [facility] [address] [place] [address] 06/16/2024 10:30 AM EST Office Visit Hematology/Oncology [facility] [address] [place] [phone] Flaquita Wilson MD [address] [place] [address] 07/01/2024 9:05 AM EST Office Visit Urogynecology [facility] [address] [place] [address] Shanti Cummings PA-C 132 [place] [address] Nurse Ye Urostephanie Jett 132 [place] [address] 09/02/2024 9:20 AM EST Telemedicine Neurology Titi [address] [place] [phone] Clif Mckeon MD 100 [address] [facility] [place] [address] 11/30/2024 9:00 AM EDT Office Visit Sleep Disorders Ctr [facility] [address] [place] [phone] Silvia Holt CRNP [address] [place] [address] Health Maintenance Due Date Last Done Comments [...] 023, 12/14/2020, 10/21/2007 CKD PHOS USE SMARTSET 35949 12/26/202312/06, 01/16/2016, 02/16/2015, Additional history exists HbA1c 12/26/2023 12/25/2022, 07/0 07/2021, 12/14/2020, Additional history exists COVID-19 Vaccine ( season) 2024 Influenza Vaccine (FLU shot) (#1) 2024 05/14/2010 TSH 03/21/2024 03/21/2023, 08/0 09/2022, 12/25/2022, Additional history exists GFR 10/08/2024 04/09/2024, 090 10/2023, 02/17/2024, Additional history exists CKD HGB USE SMARTSET 75064 03/10/202503/10, 03/10/2024, 02/17/2024, Additional history exists Lipid [...] this encounter Medical Devices Implanted Type Area Subsorter Device Identifier Shelf Expiration Date Model / Serial / Lot Port Implant W8f Poly Cath - [id number] Implanted:Qty : 1 on 09/05/2023 by Orville Zendejas MD at [facility] Right: Chest CR BARD : PERIPHERAL VASCULAR [id number] 06/05/2024 [id number] / / [id number] documented as of this encounter Advance Directives * Full Code (Latest Code Status on File) Date Activated Date Inactivated Comments 02/19/2022 1:10 PM 02/19/2022 8:22 PM This order r eflects the patients wishes and were consensually agreed upon. Question Answer Comments Discussion of Advance Directives occurred with: Not Discussed Care Teams Medical Physicist Relationship Specialty Start Date End Date Lashawn Mejia MD [address] [place] [address] [place] [address] PCP - General Family Medicine 09/22/20 documented as of this encounter
--- OUTSIDE RECORDS SUMMARY | 2024-10-01 03:35 | External Medical Summary ---
Author Name Unknown Address Unknown Organization K01:[facility] [place] [address] [facility] [address] Laboratory Report Ordering Provider Test Date Status BROCK BURNHAM 05/12/2024 07:57:57 Final Observation Date Value Abnormality Reference (Units ) Status Ferritin 05/12/2024 07:57:57 119 13-150 (ng /mL) Final Postmenopausal women have hi gher ferritin levels than pre-menopausal women. The above reference interval is based on pre-menopausal women. Performing Location [facility] [place] [address] [facility] [address]
--- OUTSIDE RECORDS SUMMARY | 2024-10-01 03:35 | External Medical Summary ---
Author Name Unknown Address Unknown Organization K01:[facility] [place] [address] [place] [address] Laboratory Report Ordering Provider Test Date Status EARL CLEMONS 05/12/2024 07:57:57 Final Observation Date Value Abnormality Reference (Units) Status Bacteria identified in Specimen by Culture 05/12/2024 07:57:57 No significant growth Final Test: Culture, Urine, Quanti tative
Specimen Source: Urine, Clean Catch
Specimen Type: Urine
Specimen Date: 05/12/2024 0757
Result Date: 05/13/20241127
Result Status: Final result
Resulting Lab: [facility]
[address]
[facility] [address]

CULTURE

No significant growth

null Performing Location [facility] [place] [address] [place] [id number]
--- OUTSIDE RECORDS SUMMARY | 2024-10-01 03:35 | External Medical Summary ---
Author Name Unknown Address Unknown Organization K01:[facility] [place] [address] [facility] [address] Laboratory Report Ordering Provider Test Date Status EARL CLEMONS 06/07/2024 07:40:28 Final Observation Date Value Abnormality Reference (Units ) Status Color of Urine by Auto 06/07/2024 07:40:28 Yellow Colorless, Light Yellow, Yellow, Dark Yellow Final Clarity, Urine 06/07/2024 07:40:28 Slightly Cloudy Abnormal Clear Final Glucose [Mass/volume] in Urine by Automated test strip 06/07/2024 07:40:28 Negative Negative (mg/dL) Final Bilirubin.total [Presence] in Urine by Automated test strip 06/07/2024 07:40:28 Negative Negative Final Ketones [Mass/volume] in Urine by Automated test strip 06/07/2024 07:40:28 Negative Negative (mg/dL) Final Specific gravity, Urine 06/07/2024 07:40:28 1.027 1.003-1.030 Final Hemoglobin [Presence] in Urine by Automated test strip 06/07/2024 07:40:28 Large Abnormal Negative Final pH, Urine 06/07/2024 07:40:28 6.0 5.0-7.5 (Units) Final Protein [Mass/volume] in Urine by Automated test strip 06/07/2024 07:40:28 100 Abnormal Negative (mg/dL) Final Urobilinogen [Mass/volume] in Urine by Automated test strip 06/07/2024 07:40:28 2.0 Abnormal Normal (mg/dL) Final Nitrite [Presence] in Urine by Automated test strip 06/07/2024 07:40:28 Negative Negative Final Leukocyte esterase [Presence] in Urine by Automated test strip 06/07/2024 07:40:28 Small Abnormal Negative Final RBC, Urine 06/07/2024 07:40:28 50+ Abnormal 0-2 (/HPF) Final WBC, Urine 06/07/2024 07:40:28 30-49 Abnormal 0-2 (/HPF) Final Bacteria [#/area] in Urine sediment by Microscopy high power field 06/07/2024 07:40:28 26-50 Abnormal 0-25 (/HPF) Final Calcium oxalate crystals [#/area] in Urine sediment by Microscopy high power field 06/07/2024 07:40:28 50+ Abnormal None (/HPF) Final Hyaline casts, Urine 06/07/2024 07:40:28 1-4 Abnormal None (/LPF) Final CULTURE, URINE - [facility] 06/07/2024 07:40:28 Final Quantitative urine culture t o be performed Performing Location [facility] - [facility] [address] [facility] [address]
--- OUTSIDE RECORDS SUMMARY | 2024-10-01 03:36 | External Medical Summary | Summary of Care ---
Author Name Unknown Organization [facility] Address [address] [place] [address] Phone [phone] Care Team Providers Care College Basketball Coach Name Role Phone Lashawn Mejia MD Primary Care Prov ider Reason for Visit * Reason Onset Date Comments Test Results Lab 04/29/2024 Encounter Details Date Type Department Care Team (Late st Contact Info) Description 04/29/2024 Telephone Family Medicine [address] [phone] Lashawn Mejia MD [address] [place] [address] Test Results Lab Allergies Active Allergy Reactions Criticality Noted Date Comments Gabapentin Neuro complications (Please comment),Tachycardia 02/06/2023 Hallucinations documented as of this encounter (statuses as of 04/29/2024) Medications Medication Sig Dispensed Refills Start Date [...] food until gone. 14 Capsule 04/29/2024 05/06/2024 Active documented as of this encounter (statuses as of 04/29/2024) Active Problems Problem Noted Date Diagnosed Date [...] as of this encounter (statuses as of 04/29/2024) Resolved Problems Problem Noted Date Diagnosed Date [...] as of this encounter (statuses as of 04/29/2024) Immunizations Name Administration Dates Next Due Seasonal [...] Description 06/09/2024 10:00 AM EST Laboratory Laboratory, [facility] 132 [place] [phone] [place] [address] 06/09/2024 10:15 AM EST Imaging Radiology [facility] 1st Floor, [address] [place] [address] 06/16/2024 10:00 AM EST Immunization/Injection Hematology/Oncology Treatment, [place] [address] [place] [address] Park, Chair 9 Hem Onc [address] [place] [address] 06/16/2024 10:30 AM EST Office Visit Hematology/Oncology [facility] [place] 200 [facility] [place] [phone] Flaquita Wilson MD [address] [place] [address] 09/02/2024 9:20 AM EST Telemedicine Neurology [address] [place] [phone] Clif Mckeon MD [address] [facility] [place] [id number] 11/30/2024 9:00 AM EDT Office Visit [facility] Disorders [facility]tr [address] [phone] Silvia Holt CRNP 132 [place] [address] Health Maintenance Due Date Last Done Comments [...] 023, 12/14/2020, 10/21/2007 CKD PHOS USE SMARTSET 13958 12/26/[address] 07/2022, 01/16/2016, 02/16/2015, Additional history exists HbA1c 12/26/2023 12/25/2022, 07/0 07/2021, 12/14/2020, Additional history exists COVID-19 Vaccine ( season) 2024 Influenza Vaccine (FLU shot) (#1) 2024 05/14/2010 TSH 03/21/2024 03/21/2023, 08/0 09/2022, 12/25/2022, Additional history exists GFR 10/08/2024 04/09/2024, 09/0 10/2023, 02/17/2024, Additional history exists CKD HGB USE SMARTSET 54753 03/10/202503/10, 03/10/2024, 02/17/2024, Additional history exists Lipid [...] this encounter Medical Devices Implanted Type Area Peoplesoft Administrator Device Identifier Shelf Expiration Date Model / Serial / Lot Port Implant W8f Poly Cath - [id number] Implanted:Qty : 1 on 09/05/2023 by Orville Zendejas MD at OR [facility] Right: Chest CR BARD : PERIPHERAL VASCULAR [id number] 06/05/2024 [id number] / / [id number] documented as of this encounter Advance Directives * Full Code (Latest Code Status on File) Date Activated Date Inactivated Comments 02/19/2022 1:10 PM 02/19/2022 8:22 PM This order r eflects the patients wishes and were consensually agreed upon. Question Answer Comments Discussion of Advance Directives occurred with: Not Discussed Care Teams College Basketball Coach Relationship Specialty Start Date End Date Lashawn Mejia MD [address] [place] [address] [place] [address] PCP - General Family Medicine 09/22/20 documented as of this encounter
--- OUTSIDE RECORDS SUMMARY | 2024-10-01 03:36 | External Medical Summary | Summary of Care ---
Author Name Unknown Organization [facility] Address [address] [place] [address] Phone [phone] Care Team Providers Care Degreasing Solution Mixer Name Role Phone Lashawn Mejia MD Primary Care Prov ider Reason for Visit * Reason Comments Procedure Cathflo Encounter Details Date Type Department Care Team (Latest Contact Info) Description 04/29/2024 11:00 AM EDT Hem/Onc Treatment Hematology/Oncology Treatment, [address] [phone] Rosario, Chair [address] [address] Endometrial cancer (HCC)* Allergies Active Allergy Reactions [...] required to determine if the biopsy if lifeline representatives. B. Skin, left vulva, biopsy: Mild [...] Description 06/09/2024 10:00 AM EST Laboratory Laboratory, [address] [place] [phone] [address] [place] [address] 06/09/2024 10:15 AM EST Imaging Radiology [facility] 1st [facility] [place] [address] [place] [address] 06/16/2024 10:00 AM EST Immunization/Injection Hematology/Oncology Treatment, [place] [address] [place] [phone] Park, Chair 9 Hem Onc [address] [place] [address] 06/16/2024 10:30 AM EST Office Visit Hematology/Oncology [facility] 200 [facility] [place] [phone] Flaquita Wilson MD [address] [place] [address] 09/02/2024 9:20 AM EST Telemedicine Neurology T[address] [place] [phone] Clif Mckeon MD [address] [facility] [place] [id number] 11/30/2024 9:00 AM EDT Office Visit Sleep Disorders Ctr [facility] [address] [place] [phone] Silvia Holt CRNP [address] [place] [address] Health Maintenance Due Date Last Done Comments [...] 023, 12/14/2020, 10/21/2007 CKD PHOS USE SMARTSET 07934 12/26/20232 07/2022, 01/16/2016, 02/16/2015, Additional history exists HbA1c 12/26/2023 12/25/2022, 07/0 07/2021, 12/14/2020, Additional history exists COVID-19 Vaccine ( season) 2024 Influenza Vaccine (FLU shot) (#1) 2024 05/14/2010 TSH 03/21/2024 03/21/2023, 080 09/2022, 12/25/2022, Additional history exists GFR 10/08/2024 04/09/2024, 090 10/2023, 02/17/2024, Additional history exists CKD HGB USE SMARTSET 41545 03/10/202503/10, 03/10/2024, 02/17/2024, Additional history exists Lipid [...] this encounter Medical Devices Implanted Type Area Transformer Builder Device Identifier Shelf Expiration Date Model / Serial / Lot Port Implant W8f Poly Cath - [id number] Implanted:Qty : 1 on 09/05/2023 by Orville Zendejas MD at OR [facility] Right: Chest CR BARD : PERIPHERAL VASCULAR [id number] 06/05/2024 [id number] / / [id number] documented as of this encounter Visit Diagnoses Diagnosis Endometrial cancer (HCC)- Primary Malignant neoplasm of corpus uteri, except isthmus documented in this encounter Administered Medications Inactive [...] Directives occurred with: Not Discussed Care Teams Degreasing Solution Mixer Relationship Specialty Start Date End Date Lashawn Mejia MD [address] [place] [address] [place] [phone] PCP - General Family Medicine 09/22/20 documented as of this encounter
--- OUTSIDE RECORDS SUMMARY | 2024-10-01 03:36 | External Medical Summary | Summary of Care ---
Author Name Unknown Organization [facility] Address [address] [place] [address] Phone [phone] Care Team Providers Care Broommaking Supervisor Name Role Phone Lashawn Mejia MD Primary Care Prov ider Reason for Visit * Reason Comments Procedure Port flush Encounter Details Date Type Department Care Team (Late st Contact Info) Description 04/29/2024 8:45 AM EDT Nurse Only Hematology/Oncology Treatment, [address] [phone] Park, Chair [address] [address] Procedure (Port flush) Allergies Active Allergy Reactions [...] the morning. 30 Tablet 5 04/28/2024 Active documented as of this encounter (statuses [...] Description 06/09/2024 10:00 AM EST Laboratory Laboratory, [facility] 132 [facility] [place] [address] BelcherLuis james Jett 132 [facility] [place] [address] 06/09/2024 10:15 AM EST Imaging Radiology [facility] 1st [facility] 132 [facility] [place] [address] 06/16/2024 10:30 AM EST Office [facility] [address] [place] [phone] Flaquita Wilson MD [address] [place] [address] 09/02/2024 9:20 AM EST Telemedicine Neurology Catalino Ortiz [place] [address] [place] [phone] Clif Mckeon MD 100 [place] [address] 11/30/2024 9:00 AM EDT Office Visit Sleep Disorders Ctr [facility] 132 [facility] [place] [phone] Silvia Holt CRNP 132 [facility] [place] [address] Health Maintenance Due Date Last Done Comments [...] 023, 12/14/2020, 10/21/2007 CKD PHOS USE SMARTSET 65026 12/26/202312/06, 01/16/2016, 02/16/2015, Additional history exists HbA1c 12/26/2023 12/25/2022, 07/0 07/2021, 12/14/2020, Additional history exists COVID-19 Vaccine ( season) 2024 Influenza Vaccine (FLU shot) (#1) 2024 05/14/2010 TSH 03/21/2024 03/21/2023, 08/0 09/2022, 12/25/2022, Additional history exists GFR 10/08/2024 04/09/2024, 09/0 10/2023, 02/17/2024, Additional history exists CKD HGB USE SMARTSET 87803 03/10/202503/10, 03/10/2024, 02/17/2024, Additional history exists Lipid [...] this encounter Medical Devices Implanted Type Area News Content Specialist Device Identifier Shelf Expiration Date Model / Serial / Lot Port Implant W8f Poly Cath - [id number] Implanted:Qty : 1 on 09/05/2023 by Orville Zendejas MD at OR [facility] Right: Chest CR BARD : PERIPHERAL VASCULAR [id number] 06/05/2024 [id number] / / [id number] documented as of this encounter Visit Diagnoses [...] place; IV infusing or unable to flush. Given 04/29/2024 9:00 AM EDT 500 Units sodium chloride 0.9 % flush central line 10 mL 10 mL, IV Push, PRN Other, IV Flush, Starting on Mary 04/29/24 at 1024, Until Mary 24 at 1115, For 24 hours, Do not flush if lock, PICC, or central line not in place; IV infusing or unable to flush. Given 04/29/2024 9:00 AM EDT 10 mL documented in this encounter Advance Directives * Full Code (Latest Code Status on File) Date Activated Date Inactivated Comments 02/19/2022 1:10 PM 02/19/2022 8:22 PM This order r eflects the patients wishes and were consensually agreed upon. Question Answer Comments Discussion of Advance Directives occurred with: Not Discussed Care Teams Broommaking Supervisor Relationship Specialty Start Date End Date Lashawn Mejia MD [address] [place] [address] [place] [phone] PCP - General Family Medicine 09/22/20 documented as of this encounter
--- OUTSIDE RECORDS SUMMARY | 2024-10-01 03:36 | External Medical Summary | Summary of Care ---
Author Name Unknown Organization [facility] Address [address] [place] [address] Phone [phone] Care Team Providers Care Editorial Specialist Name Role Phone Lashawn Mejia MD Primary Care Prov ider Reason for Visit * Reason Comments Procedure Cathflo Encounter Details Date Type Department Care Team (Latest Contact Info) Description 04/29/2024 11:00 AM EDT Hem/Onc Treatment Hematology/Oncology Treatment, [address] [phone] Rosario, Chair 1 Hem On[address] [address] Endometrial cancer (HCC)* Allergies Active Allergy Reactions [...] to determine if the biopsy if customer contact representative. B. Skin, left vulva, biopsy: Mild [...] Description 06/09/2024 10:00 AM EST Laboratory Laboratory, [address] [place] [phone] [address] [place] [address] 06/09/2024 10:15 AM EST Imaging Radiology [facility] 1st [facility] [place] 132 [facility] [place] [address] 06/16/2024 10:00 AM EST Immunization/Injection Hematology/Oncology Treatment, [place] [address] [place] [phone] Park, Chair 9 Hem Onc [address] [place] [address] 06/16/2024 10:30 AM EST Office Visit Hematology/Oncology [facility] [address] [facility] [place] [phone] Flaquita Wilson MD [address] [place] [address] 09/02/2024 9:20 AM EST Telemedicine Neurology Titi Ort[address] [place] [phone] Clif Mckeon MD [address] [facility] [place] CR[place] [id number] 11/30/2024 9:00 AM EDT Office Visit Sleep Disorders Ctr [facility] [address] [place] [phone] Silvia Holt CRNP [address] [place] [address] Health Maintenance Due Date Last Done Comments [...] 023, 12/14/2020, 10/21/2007 CKD PHOS USE SMARTSET 50844 12/26/20232 07/2022, 01/16/2016, 02/16/2015, Additional history exists HbA1c 12/26/2023 12/25/2022, 07/0 07/2021, 12/14/2020, Additional history exists COVID-19 Vaccine ( season) 2024 Influenza Vaccine (FLU shot) (#1) 2024 05/14/2010 TSH 03/21/2024 03/21/2023, 080 09/2022, 12/25/2022, Additional history exists GFR 10/08/2024 04/09/2024, 090 10/2023, 02/17/2024, Additional history exists CKD HGB USE SMARTSET 98530 03/10/202503/10, 03/10/2024, 02/17/2024, Additional history exists Lipid [...] this encounter Medical Devices Implanted Type Area Sandstone Splitter Device Identifier Shelf Expiration Date Model / Serial / Lot Port Implant W8f Poly Cath - [id number] Implanted:Qty : 1 on 09/05/2023 by Orville Zendejas MD at OR [facility] Right: Chest CR BARD : PERIPHERAL VASCULAR [id number] 06/05/2024 [id number] / / [id number] documented as of this encounter Visit Diagnoses [...] Directives occurred with: Not Discussed Care Teams Editorial Specialist Relationship Specialty Start Date End Date Lashawn Mejia MD [address] [place] [address] [place] Doran [phone] PCP - General Family Medicine 09/22/20 documented as of this encounter
--- OUTSIDE RECORDS SUMMARY | 2024-10-01 03:36 | External Medical Summary | Summary of Care ---
Author Name Unknown Organization [facility] Address [address] [place] [address] Phone [phone] Care Team Providers Care Check And Transfer Beader Name Role Phone Lashawn Mejia MD Primary Care Prov ider Encounter Details Date Type Department Care Team (Late st Contact Info) Description 04/29/2024 Orders Only Hematology/Oncology, [facility] [address] [place], [place] [phone] Flaquita Wilson MD 200 [place] [address] Allergies Active Allergy Reactions Criticality [...] required to determine if the biopsy if containers sales representative. B. Skin, left vulva, biopsy: [...] 10:00 AM EST Laboratory Laboratory, [facility] 132 [facility] [place] [phone] Luis [place] 132 [facility] [place] [address] 06/09/2024 10:15 AM EST Imaging Radiology [facility] 1st [facility] 132 [place] [address] 06/16/2024 10:30 AM EST Office [facility] [address] [place] [phone] Flaquita Wilson MD [address] [place] [address] 09/02/2024 9:20 AM EST Telemedicine Neurology Catal[address] Ort[address] [place] [address] [place] [phone] Clif Mckeon MD [address] [place] [address] 11/30/2024 9:00 AM EDT Office Visit Sleep Disorders Ctr [facility] 132 [facility] [place] [phone] Silvia Holt CRNP 132 [facility] [place] [address] Health Maintenance Due Date Last Done Comments [...] 023, 12/14/2020, 10/21/2007 CKD PHOS USE SMARTSET 89859 12/26/202312/06, 01/16/2016, 02/16/2015, Additional history exists HbA1c 12/26/2023 12/25/2022, 07/0 07/2021, 12/14/2020, Additional history exists COVID-19 Vaccine ( season) 2024 Influenza Vaccine (FLU shot) (#1) 2024 05/14/2010 TSH 03/21/2024 03/21/2023, 08/0 09/2022, 12/25/2022, Additional history exists GFR 10/08/2024 04/09/2024, 09/0 10/2023, 02/17/2024, Additional history exists CKD HGB USE SMARTSET 14770 03/10/202503/10, 03/10/2024, 02/17/2024, Additional history exists Lipid [...] this encounter Medical Devices Implanted Type Area Sweet Pickle Maker Device Identifier Shelf Expiration Date Model / Serial / Lot Port Implant W8f Poly Cath - [id number] Implanted:Qty : 1 on 09/05/2023 by Orvlile Zendejas MD at OR [facility] Right: Chest CR BARD : PERIPHERAL VASCULAR [id number] 06/05/2024 [id number] / / [id number] documented as of this encounter Advance Directives * Full Code (Latest Code Status on File) Date Activated Date Inactivated Comments 02/19/2022 1:10 PM 02/19/2022 8:22 PM This order r eflects the patients wishes and were consensually agreed upon. Question Answer Comments Discussion of Advance Directives occurred with: Not Discussed Care Teams Check And Transfer Beader Relationship Specialty Start Date End Date Lashawn Mejia MD [address] [place] [address] [place] Doran [phone] PCP - General Family Medicine 09/22/20 documented as of this encounter
--- OUTSIDE RECORDS SUMMARY | 2024-10-01 03:36 | External Medical Summary ---
Author Name Unknown Address Unknown Organization K01:[facility] - [address] [place] [id number] Laboratory Report Ordering Provider Test Date Status EARL CLEMONS 04/29/2024 08:30:09 Final Observation Date Value Abnormality Reference (Units) Status Bacteria identified in Specimen by Culture 04/29/2024 08:30:09 No significant growth Final Test: Culture, Urine, Quanti tative
Specimen Source: Urine, Clean Catch
Specimen Type: Urine
Specimen Date: 04/29/2024829
Result Date: 04/30/2024 1020
Result Status: Final result
Resulting Lab: [facility]
[address]
[facility] [address]

CULTURE

No significant growth

null Performing Location [facility] - [address] [facility] [address]
--- OUTSIDE RECORDS SUMMARY | 2024-10-01 03:36 | External Medical Summary | Summary of Care ---
Author Name Unknown Organization [facility] Address [address] [place] [address] Phone [phone] Care Team Providers Care Mailing Manager Name Role Phone Lashawn Mejia MD Primary Care Prov ider Reason for Visit * Reason Comments Procedure Cathflo Encounter Details Date Type Department Care Team (Latest Contact Info) Description 04/29/2024 11:00 AM EDT Hem/Onc Treatment Hematology/Oncology Treatment, [address] [phone] Rosario, Chair [address] [address] Endometrial cancer (HCC)*; Encounter for adjustment or [...] required to determine if the biopsy if brewery representative. B. Skin, left vulva, biopsy: Mild [...] Description 06/09/2024 10:00 AM EST Laboratory Laboratory, [facility] 132 [facility] [place] [phone] [address] [place] [address] 06/09/2024 10:15 AM EST Imaging Radiology [facility] 1st [facility] [place] 132 [facility] [place] [address] 06/16/2024 10:00 AM EST Immunization/Injection Hematology/Oncology Treatment, [place] [address] [place] [phone] Rosario, Chair 9 Hem Onc [facility] 200 [facility] [place] [address] 06/16/2024 10:30 AM EST Office Visit Hematology/Oncology [facility] [place] [address] [place] [address] Flaquita Wilson MD [address] [place] [address] 09/02/2024 9:20 AM EST Telemedicine Neurology Titi [address] [place] [phone] Clif Mckeon MD 100 N [facility] [place] [id number] 11/30/2024 9:00 AM EDT Office Visit Sleep Disorders Ctr [facility] [address] [place] [phone] Silvia Holt CRNP [address] [place] [address] Health Maintenance Due Date Last Done Comments [...] 023, 12/14/2020, 10/21/2007 CKD PHOS USE SMARTSET 90823 12/26/2023 06/2 07/2022, 01/16/2016, 02/16/2015, Additional history exists HbA1c 12/26/2023 12/25/2022, 0707/2021, 12/14/2020, Additional history exists COVID-19 Vaccine ( season) 2024 Influenza Vaccine (FLU shot) (#1) 2024 05/14/2010 TSH 03/21/2024 03/21/2023, 080 09/2022, 12/25/2022, Additional history exists GFR 10/08/2024 04/09/2024, 090 10/2023, 02/17/2024, Additional history exists CKD HGB USE SMARTSET 66098 03/10/202503/10, 03/10/2024, 02/17/2024, Additional history exists Lipid [...] this encounter Medical Devices Implanted Type Area Floating Operator Device Identifier Shelf Expiration Date Model / Serial / Lot Port Implant W8f Poly Cath - [id number] Implanted:Qty : 1 on 09/05/2023 by Orville Zendejas MD at OR [facility] Right: Chest CR BARD : PERIPHERAL VASCULAR [id number] 06/05/2024 [id number] / / [id number] documented as of this encounter Visit Diagnoses [...] Directives occurred with: Not Discussed Care Teams Mailing Manager Relationship Specialty Start Date End Date Lashawn Mejia MD [address] [place] [address] [place] Doran [phone] PCP - General Family Medicine 09/22/20 documented as of this encounter
--- OUTSIDE RECORDS SUMMARY | 2024-10-01 03:36 | External Medical Summary | Summary of Care ---
Author Name Unknown Organization [facility] Address [address] [place] [address] Phone [phone] Care Team Providers Care Insurance Biller Name Role Phone Lashawn Mejia MD Primary Care Prov ider Reason for Visit * Reason Comments Procedure Port flush Encounter Details Date Type Department Care Team (Late st Contact Info) Description 04/29/2024 8:45 AM EDT Nurse Only Hematology/Oncology Treatment, [address] [phone] Park, Chair 2 Hem On[address] [address] Procedure (Port flush) Allergies Active Allergy Reactions [...] Description 06/09/2024 10:00 AM EST Laboratory Laboratory, [facility] 132 [facility] [place] [phone] Belcher Lusi Pates 132 [facility] [address] 06/09/2024 10:15 AM EST Imaging Radiology [facility] 132 [facility] [place] [address] 06/16/2024 10:00 AM EST Immunization/Injection Hematology/Oncology Treatment, [place] [address] [place] [phone] Park, Chair 9 Hem Onc [address] [place] [address] 06/16/2024 10:30 AM EST Office Visit Hematology/Oncology [facility] [place] [address] [place] [phone] Flaquita Wilson MD [address] [place] [address] 09/02/2024 9:20 AM EST Telemedicine Neurology [address] [place] [phone] Clif Mckeon MD 100 [address] [facility] [place] [address] 11/30/2024 9:00 AM EDT Office Visit Sleep Disorders Ctr [facility] 132 [facility] [place] [phone] Silvia Holt CRNP 132 [facility] [place] [address] Health Maintenance Due Date Last Done Comments [...] 023, 12/14/2020, 10/21/2007 CKD PHOS USE SMARTSET 36720 12/26/[address] 07/2022, 01/16/2016, 02/16/2015, Additional history exists HbA1c 12/26/2023 12/25/2022, 07/0 07/2021, 12/14/2020, Additional history exists COVID-19 Vaccine ( season) 2024 Influenza Vaccine (FLU shot) (#1) 2024 05/14/2010 TSH 03/21/2024 03/21/2023, 08/0 09/2022, 12/25/2022, Additional history exists GFR 10/08/2024 04/09/2024, 09/0 10/2023, 02/17/2024, Additional history exists CKD HGB USE SMARTSET 02066 03/10/202503/10, 03/10/2024, 02/17/2024, Additional history exists Lipid [...] this encounter Medical Devices Implanted Type Area Manufacturing Electrician Device Identifier Shelf Expiration Date Model / Serial / Lot Port Implant W8f Poly Cath - [id number] Implanted:Qty : 1 on 09/05/2023 by Orville Zendejas MD at OR [facility] Right: Chest CR BARD : PERIPHERAL VASCULAR [id number] 06/05/2024 [id number] / / [id number] documented as of this encounter Visit Diagnoses [...] Directives occurred with: Not Discussed Care Teams Insurance Biller Relationship Specialty Start Date End Date Lashawn Mejia MD [address] [place] [address] [place] [phone] PCP - General Family Medicine 09/22/20 documented as of this encounter
--- OUTSIDE RECORDS SUMMARY | 2024-10-01 03:36 | External Medical Summary | Summary of Care ---
Author Name Unknown Organization [facility] Address [address] [place] [address] Phone [phone] Care Team Providers Care Wallcovering Texturer Name Role Phone Lashawn Mejia MD Primary Care Prov ider Reason for Visit * Reason Comments Procedure Port flush Encounter Details Date Type Department Care Team (Late st Contact Info) Description 04/29/2024 8:45 AM EDT Nurse Only Hematology/Oncology Treatment, [address] [phone] Park, Chair 2 Hem On[address] [address] Procedure (Port flush) Allergies Active Allergy Reactions [...] to determine if the biopsy if business banking representative. B. Skin, left vulva, biopsy: [...] Description 06/09/2024 10:00 AM EST Laboratory Laboratory, [facility] 132 [facility] [place] [phone] BelcherLuis james Jett 132 [facility] [place] [address] 06/09/2024 10:15 AM EST Imaging Radiology [facility] 1st [facility] 132 [facility] [place] [address] 06/16/2024 10:30 AM EST Office Visit Hematology/[facility] [address] [place] [phone] Flaquita Wilson MD [address] [place] [address] 09/02/2024 9:20 AM EST Telemedicine Neurology [address] Ort[address] [place] [address] [place] [phone] Clif Mckeon MD 100 [address] [facility] [place] [address] 11/30/2024 9:00 AM EDT Office Visit Sleep Disorders Ctr [facility] 132 [facility] [place] [phone] Silvia Holt CRNP 132 [facility] [place] [address] Health Maintenance Due Date Last Done Comments [...] 023, 12/14/2020, 10/21/2007 CKD PHOS USE SMARTSET 56979 12/26/202312/06, 01/16/2016, 02/16/2015, Additional history exists HbA1c 12/26/2023 12/25/2022, 07/0 07/2021, 12/14/2020, Additional history exists COVID-19 Vaccine ( season) 2024 Influenza Vaccine (FLU shot) (#1) 2024 05/14/2010 TSH 03/21/2024 03/21/2023, 08/0 09/2022, 12/25/2022, Additional history exists GFR 10/08/2024 04/09/2024, 09/0 10/2023, 02/17/2024, Additional history exists CKD HGB USE SMARTSET 94101 03/10/202503/10, 03/10/2024, 02/17/2024, Additional history exists Lipid [...] this encounter Medical Devices Implanted Type Area Celluloid Trimmer Device Identifier Shelf Expiration Date Model / Serial / Lot Port Implant W8f Poly Cath - [id number] Implanted:Qty : 1 on 09/05/2023 by Orville Zendejas MD at OR [facility] Right: Chest CR BARD : PERIPHERAL VASCULAR [id number] 06/05/2024 [id number] / / [id number] documented as of this encounter Visit Diagnoses [...] Starting on Mary 04/29/24 at 1024, Until Fri04/30/24 at 1023, For 24 hours, Do not flush if lock, PICC, or central line not in place; IV infusing or unable to flush. Given 04/29/2024 9:00 AM EDT 500 Units sodium chloride 0.9 % flush central line 10 mL 10 mL, IV Push, PRN Other, IV Flush, Starting on Mary 04/29/24 at 1024, Until 04/30/24 at 1023, For 24 hours, Do not flush if [...] Directives occurred with: Not Discussed Care Teams Wallcovering Texturer Relationship Specialty Start Date End Date Lashawn Mjeia MD [address] [place] [address] [place] [phone] PCP - General Family Medicine 09/22/20 documented as of this encounter
--- OUTSIDE RECORDS SUMMARY | 2024-10-01 03:36 | External Medical Summary | Summary of Care ---
Author Name Unknown Organization [facility] Address [address] [place] [address] Phone [phone] Care Team Providers Care Coating Mixer Name Role Phone Lashawn Mejia MD Primary Care Prov ider Reason for Visit * Reason Comments Procedure Port flush Encounter Details Date Type Department Care Team (Late st Contact Info) Description 04/29/2024 8:45 AM EDT Nurse Only Hematology/Oncology Treatment, [address] [phone] Park, Chair 2 Hem On[address] [address] Procedure (Port flush) Allergies Active Allergy Reactions [...] required to determine if the biopsy if group sales representative. B. Skin, left vulva, biopsy: [...] Description 06/09/2024 10:00 AM EST Laboratory Laboratory, [facility] 132 [facility] [place] [address] BelcherLuis james Jett 132 [facility] [place] [address] 06/09/2024 10:15 AM EST Imaging Radiology [facility] 1st [facility] 132 [facility] [place] [address] 06/16/2024 10:30 AM EST Office Visit [facility] [address] [place] [address] Flaquita Wilson MD [address] [place] [address] 09/02/2024 9:20 AM EST Telemedicine Neurology [facility] [place] [address] [place] [address] Clif Mckeon MD 100 [place] [place] [address] 11/30/2024 9:00 AM EDT Office Visit Sleep Disorders Ctr [facility] 132 [facility] [place] [phone] Silvia Holt CRNP 132 [facility] [place] [address] Health Maintenance Due Date Last Done Comments [...] 023, 12/14/2020, 10/21/2007 CKD PHOS USE SMARTSET 20109 12/26/202312/06, 01/16/2016, 02/16/2015, Additional history exists HbA1c 12/26/2023 12/25/2022, 07/0 07/2021, 12/14/2020, Additional history exists COVID-19 Vaccine ( season) 2024 Influenza Vaccine (FLU shot) (#1) 2024 05/14/2010 TSH 03/21/2024 03/21/2023, 08/0 09/2022, 12/25/2022, Additional history exists GFR 10/08/2024 04/09/2024, 09/0 10/2023, 02/17/2024, Additional history exists CKD HGB USE SMARTSET 61535 03/10/202503/10, 03/10/2024, 02/17/2024, Additional history exists Lipid [...] this encounter Medical Devices Implanted Type Area Masonry Teacher Device Identifier Shelf Expiration Date Model / Serial / Lot Port Implant W8f Poly Cath - [id number] Implanted:Qty : 1 on 09/05/2023 by Orville Zendejas MD at OR [facility] Right: Chest CR BARD : PERIPHERAL VASCULAR [id number] 06/05/2024 [id number] / / [id number] documented as of this encounter Visit Diagnoses [...] Directives occurred with: Not Discussed Care Teams Coating Mixer Relationship Specialty Start Date End Date Lashawn Mejia MD [address] [place] [address] [place] [phone] PCP - General Family Medicine 09/22/20 documented as of this encounter
--- OUTSIDE RECORDS SUMMARY | 2024-10-01 03:36 | External Medical Summary | Summary of Care ---
Author Name Unknown Organization [facility] Address [address] [place] [address] Phone [phone] Care Team Providers Care Voice Coach Name Role Phone Lashawn Mejia MD Primary Care Prov ider Reason for Visit * Reason Comments Outpatient Testing Encounter Details Date Type Department Care Team (Late st Contact Info) Description 04/29/2024 8:30 AM EDT Laboratory Laboratory [facility] [place] [address] [place] [phone] Park, Lab Scenery [address] [place] [address] Urge incontinence of urine; History of endometrial cancer Allergies Active Allergy Reactions Criticality Noted Date [...] Team (Late st Contact Info) Description 04/29/2024 9:20 AM EDT Office Visit Neurology [facility] [address] [place] [address] Clif Mckeon MD [address] [place] [address] 06/09/2024 10:00 AM EST Laboratory Laboratory, [facility] [phone] [facility] 132 [place] [address] 06/09/2024 10:15 AM EST Imaging Radiology [facility] 1st [facility] 132 [facility] [place] [address] 06/16/2024 10:30 AM EST Office Visit Hematology/Oncology Emy Ponce [place] 200 [facility] [place] [address] Flaquita Wilson MD 200 [facility] [place] [address] Pending Results Name Type Priority Associated Diagnoses Date /Time URINALYSIS, REFLEX TO CULTURE (NOT FOR NEUTROPENIC PATIENTS) Lab Routine Urge incontinence of urine History of endometrial cancer 04/29/2024 8:30 AM EDT URINALYSIS, REFLEX TO CULTURE (CUP ONLY) Lab Routine Urge incontinence of urine History of endometrial cancer 04/29/2024 8:30 AM EDT URINALYSIS, REFLEX TO CULTURE Lab Routine Urge incontinence of urine History of endometrial cancer 04/29/2024 8:30 AM EDT Health Maintenance Due Date Last [...] 023, 12/14/2020, 10/21/2007 CKD PHOS USE SMARTSET 16547 12/26/2023 06/2 07/2022, 01/16/2016, 02/16/2015, Additional history exists HbA1c 12/26/2023 12/25/2022, 07/0 07/2021, 12/14/2020, Additional history exists COVID-19 Vaccine ( season) 2024 Influenza Vaccine (FLU shot) (#1) 2024 05/14/2010 TSH 03/21/2024 03/21/2023, 080 09/2022, 12/25/2022, Additional history exists GFR 10/08/2024 04/09/2024, 090 10/2023, 02/17/2024, Additional history exists CKD HGB USE SMARTSET 12278 03/10/202503/10, 03/10/2024, 02/17/2024, Additional history exists Lipid [...] this encounter Medical Devices Implanted Type Area [place] Device Identifier Shelf Expiration Date Model / Serial / Lot Port Implant W8f Poly Cath - [id number] Implanted:Qty : 1 on 09/05/2023 by Orville Zendejas MD at [facility] Right: Chest CR BARD : PERIPHERAL VASCULAR [id number] 06/05/2024 [id number] / / [id number] documented as of this encounter Visit Diagnoses Diagnosis Urge incontinence of urine Urge incontinence History of endometrial cancer Personal history of malignant neoplasm of other parts of uterus documented in this encounter Advance Directives * Full Code (Latest Code Status on File) Date Activated Date Inactivated Comments 02/19/2022 1:10 PM 02/19/2022 8:22 PM This order r eflects the patients wishes and were consensually agreed upon. Question Answer Comments Discussion of Advance Directives occurred with: Not Discussed Care Teams Voice Coach Relationship Specialty Start Date End Date Lashawn Mejia MD [address] [place] [address] [place] [phone] PCP - General Family Medicine 09/22/20 documented as of this encounter
--- OUTSIDE RECORDS SUMMARY | 2024-10-01 03:36 | External Medical Summary | Summary of Care ---
Author Name Unknown Organization [facility] Address [address] [place] [address] Phone [phone] Care Team Providers Care Spine Nurse Name Role Phone Lashawn Mejia MD Primary Care Prov ider Reason for Visit * Reason Onset Date Comments Test Results Lab 04/29/2024 Encounter Details Date Type Department Care Team (Late st Contact Info) Description 04/29/2024 Telephone Family Medicine [address] [phone] Lashawn Mejia MD [address] [place] [address] Test Results Lab Allergies Active Allergy Reactions Criticality Noted Date Comments Gabapentin Neuro complications (Please comment),Tachycardia 02/06/2023 Hallucinations documented as of this encounter (statuses as of 04/30/2024) Medications Medication Sig Dispensed Refills Start Date [...] as of this encounter (statuses as of 04/30/2024) Active Problems Problem Noted Date Diagnosed Date Encounter for antineoplastic chemotherapy 2023 Vulvar irritation 05/12/2023 Overview: BIOPSY (05/06/2023) -- BENIGN A. Skin, right vulva, biopsy: Benign mature sebaceous glands with minimal inflammation. Negative for dysplasia and malignancy. Comment: The findings are non-specific, although sebaceous hyperplasia was considered. Clinical correlation is required to determine if the biopsy if financial services sales representative. B. Skin, left vulva, biopsy: [...] as of this encounter (statuses as of 04/30/2024) Resolved Problems Problem Noted Date Diagnosed Date [...] as of this encounter (statuses as of 04/30/2024) Immunizations Name Administration Dates Next Due Seasonal [...] 06/09/2024 10:00 AM EST Laboratory Laboratory, [facility] 132 [place] [phone] [place] [address] 06/09/2024 10:15 AM EST Imaging Radiology [facility] 1st Floor, [address] [place] [address] 06/16/2024 10:00 AM EST Immunization/Injection Hematology/Oncology Treatment, [place] [address] [place] [address] Park, Chair 9 Hem Onc [address] [place] [address] 06/16/2024 10:30 AM EST Office Visit Hematology/Oncology [facility] [place] 200 [place] [phone] Flaquita Wilson MD [address] [place] [address] 09/02/2024 9:20 AM EST Telemedicine Neurology [address] [place] [address] Clif Mckeon MD [address] [employer] [facility] [place] [id number] 11/30/2024 9:00 AM EDT Office Visit Sleep Disorders Ctr [address] [phone] Silvia Holt CRNP 132 [place] [address] Health Maintenance Due Date Last Done Comments [...] 023, 12/14/2020, 10/21/2007 CKD PHOS USE SMARTSET 84435 12/26/202[address] 07/2022, 01/16/2016, 02/16/2015, Additional history exists HbA1c 12/26/2023 12/25/2022, 07/0 07/2021, 12/14/2020, Additional history exists COVID-19 Vaccine ( season) 2024 Influenza Vaccine (FLU shot) (#1) 2024 05/14/2010 TSH 03/21/2024 03/21/2023, 08/0 09/2022, 12/25/2022, Additional history exists GFR 10/08/2024 04/09/2024, 09/0 10/2023, 02/17/2024, Additional history exists CKD HGB USE SMARTSET 68328 03/10/202503/10, 03/10/2024, 02/17/2024, Additional history exists Lipid [...] this encounter Medical Devices Implanted Type Area Hair Or Beauty Salon Assistant Device Identifier Shelf Expiration Date Model / Serial / Lot Port Implant W8f Poly Cath - [id number] Implanted:Qty : 1 on 09/05/2023 by Orville Zendejas MD at OR [facility] Right: Chest CR BARD : PERIPHERAL VASCULAR [id number] 06/05/2024 [id number] / / [id number] documented as of this encounter Advance Directives * Full Code (Latest Code Status on File) Date Activated Date Inactivated Comments 02/19/2022 1:10 PM 02/19/2022 8:22 PM This order r eflects the patients wishes and were consensually agreed upon. Question Answer Comments Discussion of Advance Directives occurred with: Not Discussed Care Teams Spine Nurse Relationship Specialty Start Date End Date Lashawn Mejia MD [address] [place] [address] [place] [phone] PCP - General Family Medicine 09/22/20 documented as of this encounter
--- OUTSIDE RECORDS SUMMARY | 2024-10-01 03:36 | External Medical Summary | Summary of Care ---
Author Name Unknown Organization [facility] Address [address] [place] [address] Phone [phone] Care Team Providers Care Bicycle Repair Technician Name Role Phone Lashawn Mejia MD Primary Care Prov ider Reason for Referral * Evaluate & Treat - Unlimited Visits (Within 10 days (routine)) - Authorized Specialty Diagnoses / Procedures Referred By Radha santana Referred To Contact Sleep Medicine / Sleep Disorders Diagnoses Obstructive sleep apnea of adult Clif Mckeon MD [address] [place] [address] Referral ID Status Reason Start Date Expiration Date Visits Requested Visits Authorized [id number] Authorized Specialty Services Required 4 2 2 Question Answer Referral Priority Within 10 days (routine) Where should this appointment be scheduled? [facility] SLEEP MED ADULT REFERRAL Sleep Apnea Testing and Management Does the patient snore and/or gasp at night or has been told they stop breathing at night? Yes, document patient's symptoms in progress note Comments Hx of CHON, not treated for years. BMI 55 Reason for Visit * Reason Comments NEW PATIENT * Evaluate & Treat - Unlimited Visits (Within 30 days (routine)) - Closed Specialty Diagnoses / Procedures Referred By Radha santana Referred To Contact Neurology Diagnoses Restless legs syndrome Lashawn Mejia MD [address] [place] [address] [place] [phone] Referral ID Status Reason Start Date Expiration Date V isits Requested Visits Authorized [id number] Closed Specialty Services Required 08/18/[phone] Encounter Details Date Type Department Care Team (Late st Contact Info) Description 04/29/2024 9:20 AM EDT Office Visit Neurology E[facility] [place] [address] [place] [address] Clif Mckeon MD [address] [place] [address] RLS (restless legs syndrome)*; Chemotherapy-induced [...] to determine if the biopsy if manufacturers service representative. B. Skin, left vulva, biopsy: [...] Sign Reading Time Taken Comments Blood Pressure 128/86 04/29/2024 9:16 AM EDT Pulse 71 04/29/2024 9:16 AM EDT Temperature 36.2 C (97.1 F) 04/29/2024 9:16 AM ED T Respiratory Rate 18 04/29/2024 9:16 AM EDT Oxygen Saturation 96% 04/29/2024 9:16 AM EDT Inhaled Oxygen Concentration - - Weight - - Height - - Body Mass Index - - documented in this encounter Progress Notes * Clif Mckeon MD - 04/29/2024 9:29 AM EDT 04/29/2024 9:31 AM Lissette CARY 59 year old female REF: LASHAWN MEJIA ABHINAV [address] [place] [address] [place] [phone] (office) [phone] (fax) Asked by Lashawn Becker MD to render opinion regarding evaluation and management of restless legs syndrome CC: Chief Complaint Patient presents with NEW PATIENT HPI: The patient is a 59-year-old woman with medically refractory restless legs syndrome for many years. Has been on a fairly high dose of ropinirole 3 milligrams 4 times a day. Symptoms are 24/7. Wears off in between doses Comorbidities are recurrent endometrial cancer since 2021 and had several cycles of chemotherapy including carboplatin and paclitaxel. Just got done with chemo. She is considered to be in remission now. She does have iron deficiency. Also history of benign intracranial hypertension. She was on Diamox for a long time, not any longer. She was unable to tolerate Gabapentin and Pregabalin. She would hallucinate and was tachycardic. She has a sister with RLS. Has not tried tonic water. She never tried medical marijuana. She has burning and tingling of her feet. Has CHON, did not use CPAP for the past years. Excessive daytime sleepiness. Snores and gasps for air at night. PAST MEDICAL HISTORY: Patient Active Problem List Diagnosis Date Noted Encounter for antineoplastic chemotherapy [Z51.11] 08/26/2023 Vulvar irritation [N90.89] 05/12/2023 BIOPSY (05/06/2023) -- BENIGN A. Skin, right vulva, biopsy: Benign mature sebaceous glands with minimal inflammation. Negative for dysplasia and malignancy. Comment: The findings are non-specific, although sebaceous hyperplasia was considered. Clinical correlation is required to determine if the biopsy if manufacturers service representative. B. Skin, left vulva, biopsy: [...] inactive term Restless legs syndrome [G25.81] 02/06/2007 ADVANCE DIRECTIVE INFORMATION 06/05/2005 No, Advance Directive brochure given to patient at prior appointment. ABN LIVER FUNCTION STUDY [R94.5] 08/22/2004 Persistent [...] mouth in the morning. 30 Tablet 5 No current facility-administered medications for this visit. 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 Trying to get on disability HIV risk factors: None FAMILY HISTORY Family History Problem Relation Name Age of Onset Hypertension Mother Cancer Mother laryngeal Cancer Father prostate Thyroid Disorder Sister Other (Lupus) Sister Thyroid Disorder Sister Half sister Cancer Mother lachelle san Thyroid Disorder Mother lachelle san Hypertension Mother lachelle san Arthritis Grandmother (Maternal) Thyroid Disorder Sister [employer] Family Status Relation Status Mo Alive HTN & cancer of larynx (smoker) - Lachelle Josias Fa Alive unkown Sis Alive SLE Sis Alive Bro Alive Bro Alive Bro Alive Elvin Alive Elvin Alive Sis (Not Specified) Sis (Not Specified) Sis (Not Specified) Mo (Not Specified) MGMA (Not Specified) Sis (Not Specified) REVIEW OF SYSTEMS: The patient denies new cardiac, lung, kidney, liver, skin (dry) , thyroid, bladder (stress incontinence), or digestive problems. The patient also denies acute changes in hearing or vision. Otherwise,all other systems are negative or as noted above. BP 128/86 (BP Site: Right Arm, BP Position: Sitting, BP Cuff Size: Regular) | Pulse 71 | Temp 36.2 C (97.1 F) (Tympanic) | Resp 18 | SpO2 96% The patient is a 59 year old female who is well developed and appears to be their stated age. NEUROLOGIC EXAMINATION: Mental status: Intact higher integrative functions. Orientated to person, place, and time. Some wordfinding difficulty Cranial nerves: CN 2: Visual rico are full to confrontation in both eyes. No papilledema CN 3-4, 6: Pupils are equal, round, reactive to light and accommodation. Extraocular motility is intact in both eyes without nystagmus. CN 5: Facial sensation and jaw strength are normal bilaterally. CN 7: No facial muscle weakness or significant asymmetries. CN 8: Hearing is intact in both ears to whispered voice and finger rub. CN 9-10: Palate is symmetric and moves normally in the midline. CN 11: Sternocleidomastoid and trapezius muscle strength are normal bilaterally. CN 12: Tongue protrudes in midline. No tongue atrophy or fasciculation. Crowded oropharynx. Motor: mild generalized weakness. Sensory: sensory disturbance in both forefeet and bottom of feet and finger tips. Coordination: Vzkcju-aq-auxh, and rapid alternating movements are normal bilaterally. Fine motor coordination is normal in both hands. Reflexes: Hyporeflexic and symmetric in the arms and absent in legs. No pathologic reflexes. Gait/station: not tested. GENERAL EXAMINATION: Head: Normocephalic without mass, lesion, or tenderness. Neck: No palpable thyromegaly or adenopathy. Cardiovascular: Heart rate and rhythm are normal to auscultation without murmur, click, or gallop. Carotid pulses have normal amplitudes bilaterally without bruit. Lungs: Clear to auscultation bilaterally. Extremities: Bilateral LE edema. Peripheral pulses are intact. Skin: No neurocutaneous stigmata or rash. Dry skin. IMPRESSION: The patient has medically refractory RLS. Most likely has augmentation for high dose dopamine agonists. Also has iron deficiency which may contribute to severity of RLS. Never had iron infusion. Never tried tonic water or MM. Also has chemotherapy induced peripheral neuropathy. Could not tolerate Gabapentin or Pregabalin. Was not tried on low dose TCAs yet. Also has untreated sleep apnea which contributes to her daytime fatigue and minor cognitive issues.If untreated and severe it is a RF for stroke. RECOMMENDATIONS: I will put her on low dose Clonazepam 0.5 -1mg at bedtime. I recommend iron infusions and a trial of tonic water. Advised to drinks 1-2 glasses of tonic water throughout the day. I will put her on low dose Nortriptyline 25mg at bedtime and send her to sleep medicine. Next f/u in 4 months with Telemedicine. Thank-you for the pleasure of this consultation. Clif Mckeon MD Neurology [address] [place] [address] Please send copy to requesting physician, Lashawn Becker MD documented in this encounter Nursing Notes * Rossy Funes LPN - 04/29/2024 9:15 AM EDT Patient verified identity by spelling of last name and date. Chief Complaint Patient presents with NEW PATIENT documented in this encounter Plan of Treatment Upcoming Encounters Date Type Department Care Team (Late st Contact Info) Description 04/29/2024 11:00 AM EDT Hem/Onc Treatment Hematology/Oncology [address], [address] [phone] Rosario, Chair 1 Hem Onc [address] [address] 06/09/2024 10:00 AM EST Laboratory Laboratory, [facility] 132 [facility] [place] [phone] [facility] [address] [facility] [place] [address] 06/09/2024 10:15 AM EST Imaging Radiology [facility] 1st [facility] 132 [facility] [place] [address] 06/16/2024 10:30 AM EST Office [facility] [address] [place] [phone] Flaquita Wilson MD [address] [place] [address] 09/02/2024 9:20 AM EST Telemedicine Neurology [address] [place] [address] Clif Mckeon MD [address] [place] [address] 11/30/2024 9:00 AM EDT Office Visit Sleep Disorders Ctr [facility] [address] [place] [phone] Silvia Holt CRNP [address] [place] [address] Scheduled Referrals Name Type Priority Associated Diagnoses Orde r Schedule SLEEP MEDICINE REFERRAL OP Referral Within 10 days (routine) Obstructive sleep apnea of adult Ordered: 04/29/2024 Health Maintenance Due Date Last Done Comments [...] 023, 12/14/2020, 10/21/2007 CKD PHOS USE SMARTSET 26958 12/26/2023/07/2022, 01/16/2016, 02/16/2015, Additional history exists HbA1c 12/26/2023 12/25/2022, 07/0 07/2021, 12/14/2020, Additional history exists COVID-19 Vaccine ( season) 2024 Influenza Vaccine (FLU shot) (#1) 2024 05/14/2010 TSH 03/21/2024 03/21/2023, 08/0 09/2022, 12/25/2022, Additional history exists GFR 10/08/2024 04/09/2024, 090 10/2023, 02/17/2024, Additional history exists CKD HGB USE SMARTSET 81906 03/10/202503/10, 03/10/2024, 02/17/2024, Additional history exists Lipid [...] this encounter Medical Devices Implanted Type Area Commercial Credit Analyst Device Identifier Shelf Expiration Date Model / Serial / Lot Port Implant W8f Poly Cath - [id number] Implanted:Qty : 1 on 09/05/2023 by rOville Zendejas MD at OR [facility] Right: Chest CR BARD : PERIPHERAL VASCULAR [id number] 06/05/2024 [id number] / / [id number] documented as of this encounter Visit Diagnoses [...] Directives occurred with: Not Discussed Care Teams Bicycle Repair Technician Relationship Specialty Start Date End Date Lashawn Mejia MD [address] [place] [address] [place] [phone] PCP - General Family Medicine 09/22/20 documented as of this encounter"
--- OUTSIDE RECORDS SUMMARY | 2024-10-01 03:37 | External Medical Summary | Summary of Care ---
Author Name Unknown Organization [facility] Address [address] [place] [address] Phone [phone] Care Team Providers Care Hide Spreader Name Role Phone Lashawn Mejia MD Primary Care Prov ider Encounter Details Date Type Department Care Team (Late st Contact Info) Description 04/14/2024 Orders Only Hematology/Oncology Emy Ponce [place] [address] [place] [phone] Flaquita Wilson MD [address] [facility] [place] [address] Allergies Active Allergy Reactions Criticality Noted Date Comments Gabapentin Neuro complications (Please comment),Tachycardia 02/06/2023 Hallucinations documented as of this encounter (statuses as of 04/14/2024) Medications Medication Sig Dispensed Refills Start Date End Date Status buPROPion HCl ER (XL) 150 MG Oral Tablet Extended Release 24 Hour (Wellbutrin XL)Indications:Moder ate episode of recurrent major depressive disorder (HCC) Take1 Tablet by mouth in the morning. 90 Tablet 1 04/19/2022 Active Additional Information Patient not taking.Reported on 08/26/2023 Docusate Sodium 100 MG Oral Capsule (Colace) Take 1 Capsule by mouth in the morning and 1 Capsule before bedtime. Active Lisinopril 5 MG Oral Tablet (Prinivil)Indication s:HTN, goal below 140/90 Take by mouth 1 Tablet in the morning. 90 Tablet 1 12/18/2022 Active Naltrexone HCl 50 MG Oral Tablet (Revia) Take 1/2 tab by mouth once a day for 1 week then take 1/2 tab twice a day (morning & late afternoon) 30 Tablet 1 03/07/2023 Active Additional Information Patient not taking.Reported on 08/26/2023 Nystatin 789332 UNIT/GM External Powder (Nystop)Indications: Skin irritation Apply topically to affected area as needed for Other (Skin irritation and pain). 60 g 5 04/14/2023 Active Additional Information Patient not taking.Reported on 08/26/2023 Nystatin-Triamcinolo [place] 633500-2.1 UNIT/GM-% External Cream (Mycolog)Indications :Vulvar irritation Apply topically to affected area 2 times a day. Apply to the areas of vulvar pain and irritation 30 g 05/12/2023 Active Additional Information Patient not taking.Reported on 08/26/2023 dexAMETHasone 4 MG Oral TabletIndications:En dometrial cancer (HCC) Take 5 tab (20 mg) 12 and 6 hours before chemo 60 Tablet 08/26/2023 Active Ondansetron HCl 8 MG Oral TabletIndications:En dometrial cancer (HCC) Take 1 Tablet by mouth every 8 hours as needed for Nausea. 30 Tablet 08/26/2023 Active Prochlorperazine Maleate 10 MG Oral Tablet (Compazine)Indicatio ns:Endometrial cancer (HCC) Take 1 Tablet by mouth every 6 hours as needed for Nausea. 30 Tablet 08/26/2023 Active Additional Information Patient not taking.Reported on 01/27/2024 Lidocaine-Prilocaine 2.5-2.5 % External Cream (Emla)Indications:En dometrial cancer (HCC) APPLY TO SKIN OVER MEDIPORT & COVER 1HR PRIOR TO ACCESSING. 30 g 1 09/08/2023 Active traZODone HCl 50 MG Oral Tablet (Desyrel)Indications :Insomnia, unspecified type Take 1 Tablet by mouth at bedtime. 30 Tablet 10/20/2023 Active Additional Information Patient not taking.Reported on 01/27/2024 Pregabalin 50 MG Oral Capsule (Lyrica)Indications: Endometrial cancer (HCC) Take 1 Capsule by mouth in the morning and 1 Capsule before bedtime. 60 Capsule 11/20/2023 Active Levothyroxine Sodium 200 MCG Oral Tablet (Levoxyl)Indications :Acquired hypothyroidism Take 1 Tablet by mouth daily first thing in the morning. (at least 30 min prior to breakfast or other meds) 90 Tablet 1 01/01/2024 Active rOPINIRole HCl 2 MG Oral Tablet (Requip)Indications: Restless legs syndrome Take 1 Tablet by mouth in the morning and 1 Tablet at noon and 1 Tablet in the evening and 1 Tablet before bedtime. 120 Tablet 5 01/01/2024 Active oxyCODONE-Acetaminop hen 5-325 MG Oral Tablet (Percocet)Indication s:Endometrial cancer (HCC) Take 1 Tablet by mouth every 4 hours as needed for Pain, Moderate. 60 Tablet 01/27/2024 Active documented as of this encounter (statuses as of 04/14/2024) Active Problems Problem Noted Date Diagnosed Date Encounter for antineoplastic chemotherapy 2023 Vulvar irritation 05/12/2023 Overview: BIOPSY (05/06/2023) -- BENIGN A. Skin, right vulva, biopsy: Benign mature sebaceous glands with minimal inflammation. Negative for dysplasia and malignancy. Comment: The findings are non-specific, although sebaceous hyperplasia was considered. Clinical correlation is required to determine if the biopsy if provider relations representative. B. Skin, left vulva, biopsy: [...] as of this encounter (statuses as of 04/14/2024) Resolved Problems Problem Noted Date Diagnosed Date [...] as of this encounter (statuses as of 04/14/2024) Immunizations Name Administration Dates Next Due Seasonal [...] the money to buy more. Never true 12/10/19 23 Within the past 12 months, t he food you bought just didn't last and you didn't have money to get more. Never true 12/09/2022 Utilities Answer Date Recorded Do you have trouble paying y our heating, water, or electric bill? (Adult - for ages 18 years and over) Not on file 12/23/2023 Is your family able to pay t he heat, water, or electric bill? (Household - for ages 0-17 years) Not on file 12/23/2023 Does your family have access to good internet? (Household - for ages 0-17 years) Not on file 12/23/2023 Social Connections Answer Date Recorded How often do you feel lonely or isolated from those around you? (Adult - for ages 18 years and over) Not on file 12/23/2023 Sex and Gender Information Value Date Recorded [...] 8:45 AM EDT Nurse Only Hematology/Oncology Treatment, [place] [address] [place], [place] [phone] Park, Chair 2 Hem Onc [facility] [address] [facility] [place] [address] 04/29/2024 9:20 AM EDT Office Visit Neurology [facility] [address] [place] [address] Clif Mckeon MD [address] [place] [address] 06/09/2024 10:00 AM EST Laboratory Laboratory, [facility] [address] [facility] [place] [phone] [facility] [address] [facility] [place] [address] 06/09/2024 10:15 AM EST Imaging Radiology [facility] 1st [facility] [address] [facility] [place] [address] 06/16/2024 10:30 AM EST Office Visit Hematology/Oncology [facility] [address] [place] [phone] Flaquita Wilson MD [address] [place] [address] Health Maintenance Due Date Last Done Comments [...] 023, 12/14/2020, 10/21/2007 CKD PHOS USE SMARTSET 19082 12/26/2023 06/2 07/2022, 01/16/2016, 02/16/2015, Additional history exists HbA1c 12/26/2023 12/25/2022, 07/0 07/2021, 12/14/2020, Additional history exists COVID-19 Vaccine ( season) 2024 Influenza Vaccine (FLU shot) (#1) 2024 05/14/2010 TSH 03/21/2024 03/21/2023, 08/0 09/2022, 12/25/2022, Additional history exists GFR 10/08/2024 04/09/2024, 09/0 10/2023, 02/17/2024, Additional history exists CKD HGB USE SMARTSET 70617 03/10/202503/10, 03/10/2024, 02/17/2024, Additional history exists Lipid [...] this encounter Medical Devices Implanted Type Area Anaesthesiologist Device Identifier Shelf Expiration Date Model / Serial / Lot Port Implant W8f Poly Cath - [id number] Implanted:Qty : 1 on 09/05/2023 by Orville Zendejas MD at OR [facility] Right: Chest CR BARD : PERIPHERAL VASCULAR [id number] 06/05/2024 [id number] / / [id number] documented as of this encounter Advance Directives * Full Code (Latest Code Status on File) Date Activated Date Inactivated Comments 02/19/2022 1:10 PM 02/19/2022 8:22 PM This order r eflects the patients wishes and were consensually agreed upon. Question Answer Comments Discussion of Advance Directives occurred with: Not Discussed Care Teams Hide Spreader Relationship Specialty Start Date End Date Lashawn Mejia MD [address] [place] [address] [place] [address] PCP - General Family Medicine 09/22/20 documented as of this encounter
--- OUTSIDE RECORDS SUMMARY | 2024-10-01 03:37 | External Medical Summary | Summary of Care ---
Author Name Unknown Organization [facility] Address [address] [place] [address] Phone [phone] Care Team Providers Care Pipe Tester Name Role Phone Lashawn Mejia MD Primary Care Prov ider Reason for Visit * Reason Comments Chemotherapy Carboplatin * Episode Based Medications (Routine) - Closed Specialty Diagnoses / Procedures Referred By Radha santana Referred To Contact Diagnoses Endometrial cancer (HCC) Encounter for antineoplastic chemotherapy Procedures MT CARBOPLATIN INJECTION MT FOSAPREPITANT INJECTION MT PACLITAXEL INJECTION Flaquita Wilson MD [address] [place] [address] Anc Hem/Onc [address] [address] Referral ID Status Reason Start Date Expiration Date Visits Re quested Visits Authorized [id number] Closed 08/26/2023 08/26/[phone] Encounter Details Date Type Department Care Team (Latest Contact Info) Description 03/10/2024 9:30 AM EDT Hem/Onc Treatment Hematology/Oncolog y Treatment, [address] [phone] Rosario, Chair 6 Hem Onc [address] [place] [address] Endometrial cancer (HCC)*; Encounter for antineoplastic chemotherapy Allergies Active Allergy Reactions Criticality Noted Date Comments Gabapentin Neuro complications (Please comment),Tachycardia 02/06/2023 Hallucinations documented as of this encounter (statuses as of 04/20/2024) Medications Medication Sig Dispensed Refills Start Date End Date Status Docusate Sodium 100 MG Oral Capsule (Colace) Take 1 Capsule by mouth in the morning and 1 Capsule before bedtime. Active Lisinopril 5 MG Oral Tablet (Prinivil)Indicati ons:HTN, goal below 140/90 Take by mouth 1 Tablet in the morning. 90 Tablet 1 3 Active Nystatin-Triamcino lone 824477-9.1 UNIT/GM-% External Cream (Mycolog)Indicatio ns:Vulvar irritation Apply topically to affected area 2 times a day. Apply to the areas of vulvar pain and irritation 30 g 3 Active Additional Information Patient not taking.Reported on 08/26/2023 dexAMETHasone 4 MG Oral TabletIndications: Endometrial cancer [...] for Pain, Moderate. 60 Tablet 4 Active buPROPion HCl ER (XL) 150 MG Oral Tablet Extended Release 24 Hour (Wellbutrin XL)Indications:Mod erate episode of recurrent major depressive disorder (HCC) Take1 Tablet by mouth in the morning. 90 Tablet 1 2 024 Discontinued Naltrexone HCl 50 MG Oral Tablet (Revia) Take 1/2 tab by mouth once a day for 1 week then take 1/2 tab twice a day (morning & late afternoon) 30 Tablet 1 3 024 Discontinued Nystatin 722799 UNIT/GM External Powder (Nystop)Indication s:Skin irritation Apply topically to affected area as needed for Other (Skin irritation and pain). 60 g 5 3 024 Discontinued Prochlorperazine Maleate 10 MG Oral Tablet (Compazine)Indicat ions:Endometrial cancer (HCC) Take 1 Tablet by mouth every 6 hours as needed for Nausea. 30 Tablet 4 024 Discontinued traZODone HCl 50 MG Oral Tablet (Desyrel)Indicatio ns:Insomnia, unspecified type Take 1 Tablet by mouth at bedtime. 30 Tablet 4 024 Discontinued rOPINIRole HCl 2 MG Oral Tablet (Requip)Indication s:Restless legs syndrome Take 1 Tablet by mouth in the morning and 1 Tablet at noon and 1 Tablet in the evening and 1 Tablet before bedtime. 120 Tablet 5 4 024 Discontinued(Re fill) documented as of this encounter (statuses as of 04/20/2024) Active Problems Problem Noted Date Diagnosed Date [...] as of this encounter (statuses as of 04/20/2024) Resolved Problems Problem Noted Date Diagnosed Date [...] as of this encounter (statuses as of 04/20/2024) Immunizations Name Administration Dates Next Due Seasonal [...] Nursing Notes * Judy Ann RN - 03/10/2024 11:10 AM EDT Patient tolerated treatment without difficulty. VAD flushed with 10 ml NSS and Heparin 5 ml (100 units/ml). Stat[place] needle removed intact. Goals: Patient will remain free from injury. Possible barriers to meeting goals: Weakness and neuropathy Stability of the patient: Moderately stable - low risk of patient condition declining or worsening Summary regarding today's goals: Met: Patient remained free of harm. Pt discharged in stable condition. * Judy Ann RN - 03/10/2024 9:49 AM EDT Chair 5 Patient here for treatment. Accessed port with brisk blood return. Chemotherapy/Immunotherapy agents: CARBOPLATIN Consent for chemotherapy drug treatment complete, dated, and signed? yes, date - 08/26/23 Treatment lab parameters met? Yes Has treatment weight changed > than 10%? No Treatment preauthorized? Yes VITALS There were no vitals filed for this visit. Urine protein: N/A Patient education completed for treatment? Yes Blood transfusion consent signed and complete? NA Return appointment scheduled? Yes Patient had provider visit today? Yes - Ok to release order and treat per provider Functional Status: Functional status at today's visit: Fully active, able to carry on all pre-disease performance without restriction The drug name, dose, infusion volume, rate [...] documented in this encounter Miscellaneous Notes * Addendum Note - Chris Bazzi RN - 03/10/2024 3:21 PM EDTAddended by: CHRIS BAZZI on: 03/10/2024 03:21 PM Modules accepted: Orders documented in this encounter Plan of Treatment Upcoming Encounters Date Type Department Care Team (Late st Contact Info) Description 04/29/2024 8:45 AM EDT Nurse Only Hematology/Oncology Treatment, [place] [address] [place] [phone] Park, Chair 2 Hem Onc [address] [place] [address] 04/29/2024 9:20 AM EDT Office Visit Neurology [facility] [address] [facility] [place] [address] Clif Mckeon MD [address] [place], [place] [address] 06/09/2024 10:00 AM EST Laboratory Laboratory, [facility] [phone] [facility] 132 [facility] [place] [address] 06/09/2024 10:15 AM EST Imaging Radiology [facility] [address] [facility] 132 [facility] [place] [address] 06/16/2024 10:30 AM EST Office Visit Hematology/Oncology Emy Ponce [place] [address] [facility] [place] [address] Flaquita Wilson MD [address] [place] [address] Health Maintenance Due Date Last Done Comments [...] 023, 12/14/2020, 10/21/2007 CKD PHOS USE SMARTSET 96172 12/26/202312/06, 01/16/2016, 02/16/2015, Additional history exists HbA1c 12/26/2023 12/25/2022, 0707/2021, 12/14/2020, Additional history exists COVID-19 Vaccine ( season) 2024 Influenza Vaccine (FLU shot) (#1) 2024 05/14/2010 TSH 03/21/2024 03/21/2023, 080 09/2022, 12/25/2022, Additional history exists GFR 10/08/2024 04/09/2024, 0910/2023, 02/17/2024, Additional history exists CKD HGB USE SMARTSET 41226 03/10/202503/10, 03/10/2024, 02/17/2024, Additional history exists Lipid [...] this encounter Medical Devices Implanted Type Area Multi Slide Machine Tender Device Identifier Shelf Expiration Date Model / Serial / Lot Port Implant W8f Poly Cath - [id number] Implanted:Qty : 1 on 09/05/2023 by Orville Zendejas MD at OR [facility] Right: Chest CR BARD : PERIPHERAL VASCULAR [id number] 06/05/2024 [id number] / / [id number] documented as of this encounter Visit Diagnoses Diagnosis Endometrial cancer (HCC)- Primary Malignant neoplasm of corpus uteri, except isthmus Encounter for antineoplastic chemotherapy documented in this encounter Administered Medications Inactive Administered Medications - up to 3 most recent administrations Medication Order MAR Action Action Date Dose Rate Site CARBOplatin (Paraplatin) 572 mg in D5W 250 mL infusion 572 mg (rounded from 572.4 mg, Target AUC = 6), IV Piggyback, at 510 mL/hr Administer over 30 Minutes, PROTECT FROM LIGHT (Max Creatinine Clearance at 125 ml/min for calculating AUC dose), ONCE, 1 dose, On Fri03/10/24 at 1200 Start Infusion 03/10/2024 10:18 AM EDT 572 mg 510 mL/hr Fosaprepitant Dimeglumine (Emend) 150 mg, ondansetron (Zofran) 16 mg, dexamethasone sodium phosphate 12 mg in NSS 250 mL Infusion 150 mg, IV Piggyback, ONCE, 1 dose, On Fri03/10/24 at 1030, Administer over 30 Minutes, Give 30 minutes prior to chemotherapy. Infuse over 30 minutes. Start Infusion 03/10/2024 9:39 AM EDT 150 mg 538.4 mL/hr hEParin 100 UNIT/ML Lock Flush inj 500 Units 500 Units (5 mL), IV Lock, PRN Other, IV Flush, Starting on Fri03/10/24 at 0929, Until Fri03/10/24 at 1514, For 24 hours, Do not flush if lock, PICC, or central line not in place; IV infusing or unable to flush. Given 03/10/2024 10:56 AM EDT 500 Units NSS infusion Intravenous, at 50 mL/hr, PRN, Starting on Fri03/10/24 at 1030, Until Fri03/10/24 at 1514, Maintenance line Start Infusion 03/10/2024 9:35 AM EDT 50 mL/hr sodium chloride 0.9 % flush central line 10 mL 10 mL, IV Push, PRN Other, IV Flush, Starting on Fri03/10/24 at 0929, Until Fri03/10/24 at 1514, For 24 hours, Do not flush if lock, PICC, or central line not in place; IV infusing or unable to flush. Given 03/10/2024 10:56 AM EDT 10 mL documented in this encounter Advance Directives * Full Code (Latest Code Status on File) Date Activated Date Inactivated Comments 02/19/2022 1:10 PM 02/19/2022 8:22 PM This order r eflects the patients wishes and were consensually agreed upon. Question Answer Comments Discussion of Advance Directives occurred with: Not Discussed Care Teams Pipe Tester Relationship Specialty Start Date End Date Lashawn Mejia MD [address] [place] [address] [place] [address] PCP - General Family Medicine 09/22/20 documented as of this encounter
--- OUTSIDE RECORDS SUMMARY | 2024-10-01 03:37 | External Medical Summary ---
Author Name Unknown Address Unknown Organization K01:[facility] - [address] [facility] [address] Laboratory Report Ordering Provider Test Date Status CHRIS BEY 04/09/2024 07:31:34 Final Observation Date Value Abnormality Reference (Units ) Status Cancer Ag 19-9 04/09/2024 07:31:34 1.6 <35.0 (U/mL) Final Performing Location [facility] [address] [facility] [address]
--- OUTSIDE RECORDS SUMMARY | 2024-10-01 03:37 | External Medical Summary | Summary of Care ---
Author Name Unknown Organization [facility] Address [address] [place] [address] Phone [phone] Care Team Providers Care Director Of Manufacturing Operations Name Role Phone Lashawn Mejia MD Primary Care Prov ider Reason for Visit * Reason Comments Chemotherapy Carboplatin * Episode Based Medications (Routine) - Closed Specialty Diagnoses / Procedures Referred By Radha santana Referred To Contact Diagnoses Endometrial cancer (HCC) Encounter for antineoplastic chemotherapy Procedures [place] CARBOPLATIN INJECTION [place] FOSAPREPITANT INJECTION PA PACLITAXEL INJECTION Flaquita Wilson MD [address] [place] [address] Anc Hem/Onc [address] [address] Referral ID Status Reason Start Date Expiration Date Visits Re quested Visits Authorized [id number] Closed 08/26/2023 08/26/[phone] Encounter Details Date Type Department Care Team (Latest Contact Info) Description 03/10/2024 9:30 AM EDT Hem/Onc Treatment Hematology/Oncolog y Treatment, [address] [address] Rosario, Chair 6 Hem Onc [address] [place] [address] Endometrial cancer (HCC)*; Encounter for antineoplastic chemotherapy Allergies Active Allergy Reactions Criticality Noted Date Comments Gabapentin Neuro complications (Please comment),Tachycardia 02/06/2023 Hallucinations documented as of this encounter (statuses as of 04/21/2024) Medications Medication Sig Dispensed Refills Start Date End Date Status Docusate Sodium 100 MG Oral Capsule (Colace) Take 1 Capsule by mouth in the morning and 1 Capsule before bedtime. Active Lisinopril 5 MG Oral Tablet (Prinivil)Indicati ons:HTN, goal below 140/90 Take by mouth 1 Tablet in the morning. 90 Tablet 1 3 Active Nystatin-Triamcino lone 333089-1.1 UNIT/GM-% External Cream (Mycolog)Indicatio ns:Vulvar irritation Apply [...] 30 Tablet 1 3 024 Discontinued Nystatin 127444 UNIT/GM External Powder (Nystop)Indication s:Skin irritation Apply [...] as of this encounter (statuses as of 04/21/2024) Active Problems Problem Noted Date Diagnosed Date [...] as of this encounter (statuses as of 04/21/2024) Resolved Problems Problem Noted Date Diagnosed Date [...] as of this encounter (statuses as of 04/21/2024) Immunizations Name Administration Dates Next Due Seasonal [...] 8:45 AM EDT Nurse Only Hematology/Oncology Treatment, [place] [address] [place] [address] Park, Chair 2 Hem Onc [place] 200 [facility] [place] [address] 04/29/2024 9:20 AM EDT Office Visit Neurology [facility] 200 [facility] [place] [address] Clif Mckeon MD [address] [place], [place] [address] 06/09/2024 10:00 AM EST Laboratory Laboratory, [facility] [place] [phone] [facility] 132 [facility] [place] [address] 06/09/2024 10:15 AM EST Imaging Radiology [facility] 1st [facility] 132 [facility] [place] [address] 06/16/2024 10:30 AM EST Office Visit Hematology/Oncology Emy Ponce [place] 200 [facility] [place] [address] Flaquita Wilson MD [address] [facility] [place] [address] Health Maintenance Due Date Last Done Comments [...] 023, 12/14/2020, 10/21/2007 CKD PHOS USE SMARTSET 52762 12/26/202312/06, 01/16/2016, 02/16/2015, Additional history exists HbA1c 12/26/2023 12/25/2022, 0707/2021, 12/14/2020, Additional history exists COVID-19 Vaccine ( season) 2024 Influenza Vaccine (FLU shot) (#1) 2024 05/14/2010 TSH 03/21/2024 03/21/2023, 080 09/2022, 12/25/2022, Additional history exists GFR 10/08/2024 04/09/2024, 0910/2023, 02/17/2024, Additional history exists CKD HGB USE SMARTSET 09817 03/10/202503/10, 03/10/2024, 02/17/2024, Additional history exists Lipid [...] this encounter Medical Devices Implanted Type Area Prototype Assembler Electronics Device Identifier Shelf Expiration Date Model / Serial / Lot Port Implant W8f Poly Cath - [id number] Implanted:Qty : 1 on 09/05/2023 by Orville Zendejas MD at OR [facility] Right: Chest CR BARD : PERIPHERAL VASCULAR [id number] 06/05/2024 [id number] / / [id number] documented as of this encounter Visit Diagnoses [...] with: Not Discussed Care Teams Director Of Manufacturing Operations Relationship Specialty Start Date End Date Lashawn Mejia MD [address] [place] [address] [place] [address] PCP - General Family Medicine 09/22/20 documented as of this encounter
--- OUTSIDE RECORDS SUMMARY | 2024-10-01 03:37 | External Medical Summary ---
Author Name Unknown Address Unknown Organization K01:[facility] - [address] [place] [address] Laboratory Report Ordering Provider Test Date Status CHRIS BEY 04/09/2024 07:31:34 Final Observation Date Value Abnormality Reference (Units ) Status Creatinine 04/09/2024 07:31:34 1.2 Above high normal 0.5-1.0 (mg/dL) Final Glomerular filtration rate/1.73 sq M.predicted [Volume Rate/Area] in Serum, Plasma or Blood by Creatinine-based formula (CKD-EPI) 04/09/2024 07:31:34 51 Below low normal >=60 (mL/min) Final eGFR is calculated based on the CKD-EPI 2020 equation. Performing Location LABORATORY [facility] - [address] [place] [address]
--- OUTSIDE RECORDS SUMMARY | 2024-10-01 03:37 | External Medical Summary ---
Author Name Unknown Address Unknown Organization K01[facility] [address] [facility] [address] Laboratory Report Ordering Provider Test Date Status CHRIS BEY 04/09/2024 07:31:34 Final Observation Date Value Abnormality Reference (Units ) Status Cancer Ag 125 04/09/2024 07:31:34 4.0 <=38.1 (U/mL) Final Performing Location [facility] [address] [facility] [address]
--- OUTSIDE RECORDS SUMMARY | 2024-10-01 03:37 | External Medical Summary | Summary of Care ---
Author Name Unknown Organization [facility] Address [address] [place] [address] Phone [phone] Care Team Providers Care Tanyard Worker Name Role Phone Lashawn Mejia MD Primary Care Prov ider Reason for Visit * Reason Comments Outpatient Testing Encounter Details Date Type Department Care Team (Late st Contact Info) Description 04/09/2024 7:40 AM EDT Laboratory Laboratory [address] [place] [phone] [place] [address] Endometrial cancer (HCC) Allergies Active Allergy Reactions Criticality Noted Date Comments Gabapentin Neuro complications (Please comment),Tachycardia 02/06/2023 Hallucinations documented as of this encounter (statuses as of 04/09/2024) Medications Medication Sig Dispensed Refills Start Date [...] Information Patient not taking.Reported on 08/26/2023 Nystatin 382646 UNIT/GM External Powder (Nystop)Indications: Skin irritation Apply topically to affected area as needed for Other (Skin irritation and pain). 60 g 5 04/14/2023 Active Additional Information Patient not taking.Reported on 08/26/2023 Nystatin-Triamcinolo ne 041837-0.1 UNIT/GM-% External Cream (Mycolog)Indications :Vulvar irritation Apply [...] as of this encounter (statuses as of 04/09/2024) Active Problems Problem Noted Date Diagnosed Date Encounter for antineoplastic chemotherapy 2023 Vulvar irritation 05/12/2023 Overview: BIOPSY (05/06/2023) -- BENIGN A. Skin, right vulva, biopsy: Benign mature sebaceous glands with minimal inflammation. Negative for dysplasia and malignancy. Comment: The findings are non-specific, although sebaceous hyperplasia was considered. Clinical correlation is required to determine if the biopsy if parts counter representative. B. Skin, left vulva, biopsy: Mild [...] as of this encounter (statuses as of 04/09/2024) Resolved Problems Problem Noted Date Diagnosed Date [...] as of this encounter (statuses as of 04/09/2024) Immunizations Name Administration Dates Next Due Seasonal [...] Care Team (Late st Contact Info) Description 04/13/2024 12:00 PM EDT Imaging Radiology [address] [facility] [address] 04/21/2024 9:30 AM EDT Nurse Only Hematology/Oncology Treatment, [place] [address] [place] [address] 04/29/2024 9:20 AM EDT Office Visit Neurology [facility] [address] [place] [address] Clif Mckeon MD [address] [place] [address] 06/09/2024 10:00 AM EST Laboratory Laboratory, [address] [place] [phone] [facility] [address] [address] 06/09/2024 10:15 AM EST Imaging Radiology [address] 132 [facility] [place] [address] 06/16/2024 10:30 AM EST Office Visit Hematology/Oncology [facility] [address] [place] [address] Flaquita Wilson MD [address] [place] [address] Pending Results Name Type Priority Associated Diagnoses Date /Time CA 125 Lab Routine Endometrial cancer (HCC) 04/09/2024 7:31 AM EDT CA 19-9 Lab Routine Endometrial cancer (HCC) 04/09/2024 7:31 AM EDT CREATININE Lab Routine Endometrial cancer (HCC) 04/09/2024 7:31 AM EDT Health Maintenance Due Date Last [...] 023, 12/14/2020, 10/21/2007 CKD PHOS USE SMARTSET 47222 12/26/202312/06, 01/16/2016, 02/16/2015, Additional history exists HbA1c 12/26/2023 12/25/2022, 07/0 07/2021, 12/14/2020, Additional history exists COVID-19 Vaccine ( season) 2024 Influenza Vaccine (FLU shot) (#1) 2024 05/14/2010 TSH 03/21/2024 03/21/2023, 08/0 09/2022, 12/25/2022, Additional history exists GFR 09/07/2024 03/10/2024, 02/04, 01/27/2024, Additional history exists CKD HGB USE SMARTSET 19071 03/10/202503/10, 03/10/2024, 02/17/2024, Additional history exists Lipid [...] encounter Medical Devices Implanted Type Area Supervisor Furnace Process Device Identifier Shelf Expiration Date Model / Serial / Lot Port Implant W8f Poly Cath - [id number] Implanted:Qty : 1 on 09/05/2023 by Orville Zendejas MD at [facility] Right: Chest CR BARD : PERIPHERAL VASCULAR [id number] 06/05/2024 [id number] / / [id number] documented as of this encounter Visit Diagnoses [...] Directives occurred with: Not Discussed Care Teams Tanyard Worker Relationship Specialty Start Date End Date Lashawn Mejia MD [address] [place] [address] [place] [address] PCP - General Family Medicine 09/22/20 documented as of this encounter
--- OUTSIDE RECORDS SUMMARY | 2024-10-01 03:37 | External Medical Summary | Summary of Care ---
Author Name Unknown Organization [facility] Address [address] [place] [address] Phone [phone] Care Team Providers Care Sales Superintendent Name Role Phone Lashawn Mejia MD Primary Care Prov ider Reason for Visit * Reason Comments Follow Up Encounter Details Date Type Department Care Team (Late st Contact Info) Description 04/28/2024 10:00 AM EDT Telemedicine Family Medicine [address] [phone] Lashawn Mejia MD [address] [place] [phone] Urge incontinence of urine*; History of endometrial cancer; Moderate episode of recurrent major depressive disorder (HCC); Vagina bleeding; Class 3 severe obesity due to excess calories with serious comorbidity and body mass index (BMI) of 50.0 to 59.9 in adult ([facility]); Chronic kidney disease, stage 3a ([facility]) Allergies Active Allergy Reactions Criticality Noted Date Comments Gabapentin Neuro complications (Please comment),Tachycardia 02/06/2023 Hallucinations documented as of this encounter (statuses as of 04/28/2024) Medications Medication Sig Dispensed Refills Start Date End Date Status Lisinopril 5 MG Oral Tablet (Prinivil)Indicatio ns:HTN, goal below 140/90 Take by mouth 1 Tablet in the morning. 90 Tablet 1 3 Active dexAMETHasone 4 MG Oral TabletIndications:E ndometrial cancer (HCC) Take 5 tab (20 mg) 12 and 6 hours before chemo 60 Tablet 4 Active Ondansetron HCl 8 MG Oral TabletIndications:E ndometrial cancer (HCC) Take 1 Tablet by mouth every 8 hours as needed for Nausea. 30 Tablet 4 Active Lidocaine-Prilocain e 2.5-2.5 % External Cream (Emla)Indications:E ndometrial cancer (HCC) APPLY TO SKIN OVER MEDIPORT & COVER 1HR PRIOR TO ACCESSING. 30 g 1 4 Active Pregabalin 50 MG Oral Capsule (Lyrica)Indications :Endometrial cancer (HCC) Take 1 Capsule by mouth in the morning and 1 Capsule before bedtime. 60 Capsule 4 Active Levothyroxine Sodium 200 MCG Oral Tablet (Levoxyl)Indication s:Acquired hypothyroidism Take 1 Tablet by mouth daily first thing in the morning. (at least 30 min prior to breakfast or other meds) 90 Tablet 1 4 Active oxyCODONE-Acetamino phen 5-325 MG Oral Tablet (Percocet)Indicatio ns:Endometrial cancer (HCC) Take 1 Tablet by mouth every 4 hours as needed for Pain, Moderate. 60 Tablet 4 Active rOPINIRole HCl 3 MG Oral TabletIndications:R estless legs syndrome Take 1 Tablet by mouth in the morning and 1 Tablet at noon and 1 Tablet in the evening and 1 Tablet before bedtime. 120 Tablet 3 4 Active buPROPion HCl ER (XL) 150 MG Oral Tablet Extended Release 24 Hour (Wellbutrin XL) Take 1 Tablet by mouth in the morning. 30 Tablet 5 4 Active Docusate Sodium 100 MG Oral Capsule (Colace) Take 1 Capsule by mouth in the morning and 1 Capsule before bedtime. 04/28/20 24 Discontinued Nystatin-Triamcinol one 653929-3.1 UNIT/GM-% External Cream (Mycolog)Indication s:Vulvar irritation Apply topically to affected area 2 times a day. Apply to the areas of vulvar pain and irritation 30 g 3 04/28/20 24 Discontinued documented as of this encounter (statuses as of 04/28/2024) Active Problems Problem Noted Date Diagnosed Date Encounter for antineoplastic chemotherapy 2023 Vulvar irritation 05/12/2023 Overview: BIOPSY (05/06/2023) -- BENIGN A. Skin, right vulva, biopsy: Benign mature sebaceous glands with minimal inflammation. Negative for dysplasia and malignancy. Comment: The findings are non-specific, although sebaceous hyperplasia was considered. Clinical correlation is required to determine if the biopsy if denial management representative. B. Skin, left vulva, biopsy: [...] as of this encounter (statuses as of 04/28/2024) Resolved Problems Problem Noted Date Diagnosed Date [...] as of this encounter (statuses as of 04/28/2024) Immunizations Name Administration Dates Next Due Seasonal [...] as of this encounter Progress Notes * Lashawn Mejia MD - 04/28/2024 10:18 AM EDT Images from the original note were not included. Subjective Lissette CHAVEZ is a 59 year old female that presents for No chief complaint on file. History of Present Illness The patient, with a history of endometrial cancer treated with chemotherapy and radiation, presentswith new onset urinary incontinence and persistent vaginal bleeding. The urinary incontinence started about two weeks ago, characterized by urgency and accidents. She reports no dysuria or hematuria.The vaginal bleeding has been ongoing since her hysterectomy two years ago. Despite multiple evaluat ions, including a recent CT scan, the source of the bleeding remains unclear. The patient denies any recurrence of cancer. She also expresses a desire to restart her previous antidepressant medication, Wellbutrin, due to feelings of depression related to her current health status and limited mobility. Objective There were no vitals filed for this visit. Physical Exam General: alert, healthy, and no distress I have reviewed the following results: Results RADIOLOGY CT scan: No recurrent cancer, thickened area at surgical site (04/07/2024) None Assessment and Plan Assessment & Plan Urinary Incontinence New onset of urinary incontinence over the past two weeks. No dysuria. History of endometrial cancer treated with chemotherapy and radiation, completed a few months ago. -Collect urine sample for urinalysis and culture to rule out urinary tract infection. Vaginal Bleeding Persistent vaginal bleeding post-hysterectomy for endometrial cancer. Recent CT scan showed no recurrence of cancer. -Communicate with oncology team regarding persistent bleeding and new urinary symptoms. -Follow-up CT scan scheduled in June to monitor for possible recurrence of cancer. Depression History of depression, off medication for a while, now experiencing return of depressive symptoms. -Resume Wellbutrin, prescription sent to [facility] in [facility]. Follow-up Await results of urine culture, to be communicated to patient upon receipt. There are no diagnoses linked to this encounter. Wrap-Up Time: I spent a total of 20-29 minutes (exact time 27 mins) on the date of service in [...] during the encounter consented to its use. Telemedicine: Patient location: HOME. I was in a hospital or clinic location. After connecting through televideo,patient was verified with two unique identifiers. Patient (or authorized legal denial management representative) was then informed that this was a Telemedicine visit and being conducted confidentially over secure lines. Methods to assure confidentiality were taken. Patient acknowledged consent and understanding of pr ivacy and security of the Telemedicine visit. The patient agreed to participate. documented in this encounter Plan of Treatment Upcoming Encounters Date Type Department Care Team (Late st Contact Info) Description 04/29/2024 8:45 AM EDT Nurse Only Hematology/Oncology Treatment, [place] [facility] [phone] Rosario, Chair 2 Hem On[address] [place] [address] 04/29/2024 9:20 AM EDT Office Visit Neurology [address] [place] [address] Clif Mckeon MD [address] [place] [address] 06/09/2024 10:00 AM EST Laboratory Laboratory, [facility] [address] [place] [phone] [facility] [address] [place] [address] 06/09/2024 10:15 AM EST Imaging Radiology [facility] 1st [facility] [address] [place] [address] 06/16/2024 10:30 AM EST Office Visit Hematology/Oncology [address] [place] [address] Flaquita Wilson MD [address] [place] [address] [place] [address] Scheduled Orders Name Type Priority Associated Diagnoses Orde r Schedule URINALYSIS, REFLEX TO CULTURE (NOT FOR NEUTROPENIC PATIENTS) Lab Routine Urge incontinence of urine History of endometrial cancer Expected: 04/28/2024, Expires: 04/28/2025 Health Maintenance Due Date Last Done Comments [...] 023, 12/14/2020, 10/21/2007 CKD PHOS USE SMARTSET 95626 12/26/2023 06/2 07/2022, 01/16/2016, 02/16/2015, Additional history exists HbA1c 12/26/2023 12/25/2022, 07/0 07/2021, 12/14/2020, Additional history exists COVID-19 Vaccine ( season) 2024 Influenza Vaccine (FLU shot) (#1) 2024 05/14/2010 TSH 03/21/2024 03/21/2023, 08/0 09/2022, 12/25/2022, Additional history exists GFR 10/08/2024 04/09/2024, 09/0 10/2023, 02/17/2024, Additional history exists CKD HGB USE SMARTSET 48479 03/10/202503/10, 03/10/2024, 02/17/2024, Additional history exists Lipid [...] encounter Medical Devices Implanted Type Area Assembler Musical Instruments Device Identifier Shelf Expiration Date Model / Serial / Lot Port Implant W8f Poly Cath - [id number] Implanted:Qty : 1 on 09/05/2023 by Orville Zendejas MD at [facility] Right: Chest CR BARD : PERIPHERAL VASCULAR [id number] 06/05/2024 [id number] / / [id number] documented as of this encounter Visit Diagnoses Diagnosis Urge incontinence of urine- Primary Urge incontinence History of endometrial cancer Personal history of malignant neoplasm of other parts of uterus Moderate episode of recurrent major depressive disorder (HCC) Vagina bleeding Other specified noninflammatory disorder of vagina Class 3 severe obesity due to excess calories with serious comorbidity and body mass index (BMI) of 50.0 to 59.9 in adult (HCC) Chronic kidney disease, stage 3a (HCC) documented in this encounter Advance Directives * Full Code (Latest Code Status on File) Date Activated Date Inactivated Comments 02/19/2022 1:10 PM 02/19/2022 8:22 PM This order r eflects the patients wishes and were consensually agreed upon. Question Answer Comments Discussion of Advance Directives occurred with: Not Discussed Care Teams Sales Superintendent Relationship Specialty Start Date End Date Lashawn Mejia MD [address] [place] [address] [place] [phone] PCP - General Family Medicine 09/22/20 documented as of this encounter
--- OUTSIDE RECORDS SUMMARY | 2024-10-01 03:37 | External Medical Summary | Summary of Care ---
Author Name Unknown Organization [facility] Address [address] [place] [address] Phone [phone] Care Team Providers Care Hydroelectric Production Technician Name Role Phone Lashawn Mejia MD Primary Care Prov ider Reason for Visit * Reason Comments Chemotherapy Carboplatin * Episode Based Medications (Routine) - Closed Specialty Diagnoses / Procedures Referred By Radha santana Referred To Contact Diagnoses Endometrial cancer (HCC) Encounter for antineoplastic chemotherapy Procedures MA CARBOPLATIN INJECTION MA FOSAPREPITANT INJECTION MA PACLITAXEL INJECTION Flaquita Wilson MD [address] [place] [address] Anc Hem/Onc [address] [address] Referral ID Status Reason Start Date Expiration Date Visits Re quested Visits Authorized [id number] Closed 08/26/2023 08/26/[phone] Encounter Details Date Type Department Care Team (Latest Contact Info) Description 03/10/2024 9:30 AM EDT Hem/Onc Treatment Hematology/Oncolog y Treatment, [address] [phone] Rosario, Chair 6 Hem On[address] [place] [address] Endometrial cancer (HCC)*; Encounter for antineoplastic chemotherapy [...] 90 Tablet 1 3 Active Nystatin-Triamcino lone 144288-5.1 UNIT/GM-% External Cream (Mycolog)Indicatio ns:Vulvar irritation Apply [...] 30 Tablet 1 3 024 Discontinued Nystatin 990223 UNIT/GM External Powder (Nystop)Indication s:Skin irritation Apply [...] 8:45 AM EDT Nurse Only Hematology/Oncology Treatment, [place] [address] [place] [phone] [place], Chair 2 Hem Onc [address] 200 [facility] [place] [address] 04/29/2024 9:20 AM EDT Office Visit Neurology [facility] 200 [facility] [place] [address] Clif Mckeon MD [address] [place], [place] [address] 06/09/2024 10:00 AM EST Laboratory Laboratory, [facility] 132 [facility] [phone] [facility] 132 [facility] [place] [address] 06/09/2024 10:15 AM EST Imaging Radiology [facility] 1st [facility] 132 [facility] [place] [address] 06/16/2024 10:30 AM EST Office Visit Hematology/Oncology [facility] [place] 200 [facility] [place] [address] Flaquita Wilson MD 200 [facility] [place] [address] Health Maintenance Due Date Last Done Comments [...] 023, 12/14/2020, 10/21/2007 CKD PHOS USE SMARTSET 61280 12/26/202312/06, 01/16/2016, 02/16/2015, Additional history exists HbA1c 12/26/2023 12/25/2022, 0707/2021, 12/14/2020, Additional history exists COVID-19 Vaccine ( season) 2024 Influenza Vaccine (FLU shot) (#1) 2024 05/14/2010 TSH 03/21/2024 03/21/2023, 080 09/2022, 12/25/2022, Additional history exists GFR 10/08/2024 04/09/2024, 0910/2023, 02/17/2024, Additional history exists CKD HGB USE SMARTSET 67396 03/10/202503/10, 03/10/2024, 02/17/2024, Additional history exists Lipid [...] this encounter Medical Devices Implanted Type Area Toolroom Attendant Device Identifier Shelf Expiration Date Model / Serial / Lot Port Implant W8f Poly Cath - [id number] Implanted:Qty : 1 on 09/05/2023 by Orville Zendejas MD at [facility] Right: Chest CR BARD : PERIPHERAL VASCULAR [id number] 06/05/2024 [id number] / / [id number] documented as of this encounter Visit Diagnoses [...] Directives occurred with: Not Discussed Care Teams Hydroelectric Production Technician Relationship Specialty Start Date End Date Lashawn Mejia MD [address] [place] [address] [place] [address] PCP - General Family Medicine 09/22/20 documented as of this encounter
--- OUTSIDE RECORDS SUMMARY | 2024-10-01 03:37 | External Medical Summary | Summary of Care ---
Author Name Unknown Organization [facility] Address [address] [place] [address] Phone [phone] Care Team Providers Care Research Associate Quality Control Qc Name Role Phone Lashawn Mjeia MD Primary Care Prov ider Encounter Details Date Type Department Care Team (Late st Contact Info) Description 04/08/2024 Orders Only PATIENT PORTAL DO NOT DELETE THIS DEPT USED BY [place] [id number] Allergies Active Allergy Reactions Criticality Noted Date Comments Gabapentin Neuro complications (Please comment),Tachycardia 02/06/2023 Hallucinations documented as of this encounter (statuses as of 04/08/2024) Medications Medication Sig Dispensed Refills Start Date [...] Information Patient not taking.Reported on 08/26/2023 Nystatin 365285 UNIT/GM External Powder (Nystop)Indications: Skin irritation Apply topically to affected area as needed for Other (Skin irritation and pain). 60 g 5 04/14/2023 Active Additional Information Patient not taking.Reported on 08/26/2023 Nystatin-Triamcinolo ne 757437-2.1 UNIT/GM-% External Cream (Mycolog)Indications :Vulvar irritation Apply [...] as of this encounter (statuses as of 04/08/2024) Active Problems Problem Noted Date Diagnosed Date Encounter for antineoplastic chemotherapy 2023 Vulvar irritation 05/12/2023 Overview: BIOPSY (05/06/2023) -- BENIGN A. Skin, right vulva, biopsy: Benign mature sebaceous glands with minimal inflammation. Negative for dysplasia and malignancy. Comment: The findings are non-specific, although sebaceous hyperplasia was considered. Clinical correlation is required to determine if the biopsy if graphic art sales representative. B. Skin, left vulva, biopsy: [...] as of this encounter (statuses as of 04/08/2024) Resolved Problems Problem Noted Date Diagnosed Date [...] as of this encounter (statuses as of 04/08/2024) Immunizations Name Administration Dates Next Due Seasonal [...] Description 04/13/2024 12:00 PM EDT Imaging Radiology [address] [place] [phone] 04/21/2024 9:30 AM EDT Nurse Only Hematology/Oncology Treatment, [place] [address] [place], [place] [phone] 04/29/2024 9:20 AM EDT Office Visit Neurology [facility] [address] [place] [address] Clif Mckeon MD [address] [place] [address] 06/09/2024 10:00 AM EST Laboratory Laboratory, [address] [place] [phone] [facility] 132 [place] [address] 06/09/2024 10:15 AM EST Imaging Radiology [facility] 1st [address] [place] [address] 06/16/2024 10:30 AM EST Office Visit Hematology/Oncology [facility] 200 [facility] [place] [phone] Flaquita Wilson MD [address] [place] [address] Health Maintenance Due Date Last Done Comments [...] 023, 12/14/2020, 10/21/2007 CKD PHOS USE SMARTSET 01345 12/26/2023 06/2 07/2022, 01/16/2016, 02/16/2015, Additional history exists HbA1c 12/26/2023 12/25/2022, 07/0 07/2021, 12/14/2020, Additional history exists COVID-19 Vaccine ( season) 2024 Influenza Vaccine (FLU shot) (#1) 2024 05/14/2010 TSH 03/21/2024 03/21/2023, 08/0 09/2022, 12/25/2022, Additional history exists GFR 09/07/2024 03/10/2024, 02/04, 01/27/2024, Additional history exists CKD HGB USE SMARTSET 35128 03/10/202503/10, 03/10/2024, 02/17/2024, Additional history exists Lipid [...] this encounter Medical Devices Implanted Type Area Cellular Phone Repairer Device Identifier Shelf Expiration Date Model / Serial / Lot Port Implant W8f Poly Cath - [id number] Implanted:Qty : 1 on 09/05/2023 by Orville Zendejas MD at [facility] Right: Chest CR BARD : PERIPHERAL VASCULAR [id number] 06/05/2024 [id number] / / [id number] documented as of this encounter Advance Directives * Full Code (Latest Code Status on File) Date Activated Date Inactivated Comments 02/19/2022 1:10 PM 02/19/2022 8:22 PM This order r eflects the patients wishes and were consensually agreed upon. Question Answer Comments Discussion of Advance Directives occurred with: Not Discussed Care Teams Research Associate Quality Control Qc Relationship Specialty Start Date End Date Lashawn Mejia MD [address] [place] [address] [place] [phone] PCP - General Family Medicine 09/22/20 documented as of this encounter
--- OUTSIDE RECORDS SUMMARY | 2024-10-01 03:37 | External Medical Summary ---
Author Name Unknown Address Unknown Organization K09:[facility] [address] [place] [address] Laboratory Report Ordering Provider Test Date Status EARL CLEMONS 04/29/2024 08:30:09 Final Observation Date Value Abnormality Reference (Units ) Status Color of Urine by Auto 04/29/2024 08:30:09 Yellow Light Yellow, Yellow, Dark Yellow Final Clarity, Urine 04/29/2024 08:30:09 Slightly Cloudy Abnormal Clear Final Glucose [Mass/volume] in Urine by Automated test strip 04/29/2024 08:30:09 Negative Negative (mg/dL) Final Bilirubin.total [Presence] in Urine by Automated test strip 04/29/2024 08:30:09 Negative Negative Final Ketones [Mass/volume] in Urine by Automated test strip 04/29/2024 08:30:09 Negative Negative (mg/dL) Final Specific gravity, Urine 04/29/2024 08:30:09 1.025 1.003-1.030 Final Hemoglobin [Presence] in Urine by Automated test strip 04/29/2024 08:30:09 Large Abnormal Negative Final pH, Urine 04/29/2024 08:30:09 5.5 5.0-7.5 (Units) Final Protein [Mass/volume] in Urine by Automated test strip 04/29/2024 08:30:09 100 Abnormal Negative (mg/dL) Final Urobilinogen [Mass/volume] in Urine by Automated test strip 04/29/2024 08:30:09 0.2 0.2, 1.0 (mg/dL) Final Nitrite [Presence] in Urine by Automated test strip 04/29/2024 08:30:09 Negative Negative Final Leukocyte esterase [Presence] in Urine by Automated test strip 04/29/2024 08:30:09 Trace Abnormal Negative Final RBC, Urine 04/29/2024 08:30:09 50+ Abnormal 0-2 (/HPF) Final WBC, Urine 04/29/2024 08:30:09 10-19 Abnormal 0-2 (/HPF) Final Bacteria [#/area] in Urine sediment by Microscopy high power field 04/29/2024 08:30:09 26-50 Abnormal 0-25 (/HPF) Final CULTURE, URINE - [facility] 04/29/2024 08:30:09 Final Quantitative urine culture t o be performed Performing Location [facility] [address] [place] [address]
--- OUTSIDE RECORDS SUMMARY | 2024-10-01 03:37 | External Medical Summary | Summary of Care ---
Author Name Unknown Organization [facility] Address [address] [place] [address] Phone [phone] Care Team Providers Care Jeeper Operator Name Role Phone Lashawn Mejia MD Primary Care Prov ider Reason for Visit * Reason Comments Chemotherapy Carboplatin * Episode Based Medications (Routine) - Closed Specialty Diagnoses / Procedures Referred By Radha santana Referred To Contact Diagnoses Endometrial cancer (HCC) Encounter for antineoplastic chemotherapy Procedures ID CARBOPLATIN INJECTION ID FOSAPREPITANT INJECTION ID PACLITAXEL INJECTION Flaquita Wilson MD [address] [place] [phone] Anc Hem/Onc [address] [address] Referral ID Status Reason Start Date Expiration Date Visits Re quested Visits Authorized [id number] Closed 08/26/2023 08/26/[phone] Encounter Details Date Type Department Care Team (Latest Contact Info) Description 03/10/2024 9:30 AM EDT Hem/Onc Treatment Hematology/Oncolog y Treatment, [address] [phone] Rosario, Chair 6 Hem On[address] [place] [address] Endometrial cancer (HCC)*; Encounter for antineoplastic chemotherapy [...] Information Patient not taking.Reported on 08/26/2023 Nystatin 550226 UNIT/GM External Powder (Nystop)Indications: Skin irritation Apply topically to affected area as needed for Other (Skin irritation and pain). 60 g 5 04/14/2023 Active Additional Information Patient not taking.Reported on 08/26/2023 Nystatin-Triamcinolo ne 630138-8.1 UNIT/GM-% External Cream (Mycolog)Indications :Vulvar irritation Apply [...] required to determine if the biopsy if life assurance representative. B. Skin, left vulva, biopsy: Mild [...] 8:45 AM EDT Nurse Only Hematology/Oncology Treatment, [place] [address] [place] [phone] Rosario, Chair 2 Hem Onc [address] [address] 04/29/2024 9:20 AM EDT Office Visit Neurology [address] [place] [address] Clif Mckeon MD [address] [place], [place] [id number] 06/09/2024 10:00 AM EST Laboratory Laboratory, [facility] [address] [place] [phone] [facility] [address] [place] [address] 06/09/2024 10:15 AM EST Imaging Radiology [facility] 1st [facility] [address] [place] [address] 06/16/2024 10:30 AM EST Office Visit Hematology/Oncology Emy Ponce [place] [address] [place] [phone] Flaquita Wilson MD [address] [place] [address] Health Maintenance Due Date Last Done Comments [...] 023, 12/14/2020, 10/21/2007 CKD PHOS USE SMARTSET 08229 12/26/202312/06, 01/16/2016, 02/16/2015, Additional history exists HbA1c 12/26/2023 12/25/2022, 07/0 07/2021, 12/14/2020, Additional history exists COVID-19 Vaccine ( season) 2024 Influenza Vaccine (FLU shot) (#1) 2024 05/14/2010 TSH 03/21/2024 03/21/2023, 08/0 09/2022, 12/25/2022, Additional history exists GFR 10/08/2024 04/09/2024, 09/0 10/2023, 02/17/2024, Additional history exists CKD HGB USE SMARTSET 21902 03/10/202503/10, 03/10/2024, 02/17/2024, Additional history exists Lipid [...] this encounter Medical Devices Implanted Type Area Bench Molder Apprentice Device Identifier Shelf Expiration Date Model / Serial / Lot Port Implant W8f Poly Cath - [id number] Implanted:Qty : 1 on 09/05/2023 by Orville Zendejas MD at [facility] Right: Chest CR BARD : PERIPHERAL VASCULAR [id number] 06/05/2024 [id number] / / [id number] documented as of this encounter Visit Diagnoses [...] Directives occurred with: Not Discussed Care Teams Jeeper Operator Relationship Specialty Start Date End Date Lashawn Mejia MD [address] [place] [address] [place] [id number] PCP - General Family Medicine 09/22/20 documented as of this encounter
--- OUTSIDE RECORDS SUMMARY | 2024-10-01 03:37 | External Medical Summary | Summary of Care ---
Author Name Unknown Organization [facility] Address [address] [place] [address] Phone [phone] Care Team Providers Care Production Recorder Name Role Phone Lashawn Mejia MD Primary Care Prov ider Reason for Visit * Reason Comments Chemotherapy Carboplatin * Episode Based Medications (Routine) - Closed Specialty Diagnoses / Procedures Referred By Radha santana Referred To Contact Diagnoses Endometrial cancer (HCC) Encounter for antineoplastic chemotherapy Procedures SC CARBOPLATIN INJECTION SC FOSAPREPITANT INJECTION SC PACLITAXEL INJECTION Flaquita Wilson MD [address] [place] [phone] Anc Hem/Onc [address] [address] Referral ID Status Reason Start Date Expiration Date Visits Re quested Visits Authorized [id number] Closed 08/26/2023 08/26/[phone] Encounter Details Date Type Department Care Team (Latest Contact Info) Description 03/10/2024 9:30 AM EDT Hem/Onc Treatment Hematology/Oncolog y Treatment, [address] [address] Rosario, Chair 6 Hem Onc [address] [place] [address] Endometrial cancer (HCC)*; Encounter for antineoplastic chemotherapy [...] 90 Tablet 1 3 Active Nystatin-Triamcino lone 622519-3.1 UNIT/GM-% External Cream (Mycolog)Indicatio ns:Vulvar irritation Apply [...] 30 Tablet 1 3 024 Discontinued Nystatin 200975 UNIT/GM External Powder (Nystop)Indication s:Skin irritation Apply [...] 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 B. Skin, left vulva, biopsy: [...] 8:45 AM EDT Nurse Only Hematology/Oncology Treatment, [place] [address] [place] [address] [place], Chair 2 Hem Onc Scenery [address] [facility] [place] [address] 04/29/2024 9:20 AM EDT Office Visit Neurology [facility] [address] [facility] [place] [address] Clif Mckeon MD [address] [place], [place] [phone] 06/09/2024 10:00 AM EST Laboratory Laboratory, [facility] [phone] [facility] 132 [facility] [place] [address] 06/09/2024 10:15 AM EST Imaging Radiology [facility]st [facility] 132 [facility] [place] [address] 06/16/2024 10:30 AM EST Office Visit Hematology/Oncology Emy Ponce [place] [address] [facility] [place] [address] Flaquita Wilson MD [address] [facility] [place] [address] Health Maintenance Due Date Last Done Comments [...] 023, 12/14/2020, 10/21/2007 CKD PHOS USE SMARTSET 90583 12/26/202312/06, 01/16/2016, 02/16/2015, Additional history exists HbA1c 12/26/2023 12/25/2022, 0707/2021, 12/14/2020, Additional history exists COVID-19 Vaccine ( season) 2024 Influenza Vaccine (FLU shot) (#1) 2024 05/14/2010 TSH 03/21/2024 03/21/2023, 080 09/2022, 12/25/2022, Additional history exists GFR 10/08/2024 04/09/2024, 0910/2023, 02/17/2024, Additional history exists CKD HGB USE SMARTSET 45120 03/10/202503/10, 03/10/2024, 02/17/2024, Additional history exists Lipid [...] this encounter Medical Devices Implanted Type Area Physical Security Engineer Device Identifier Shelf Expiration Date Model / Serial / Lot Port Implant W8f Poly Cath - [id number] Implanted:Qty : 1 on 09/05/2023 by Orville Zendejas MD at [facility] Right: Chest CR BARD : PERIPHERAL VASCULAR [id number] 06/05/2024 [id number] / / [id number] documented as of this encounter Visit Diagnoses [...] Directives occurred with: Not Discussed Care Teams Production Recorder Relationship Specialty Start Date End Date Lashawn Mejia MD [address] [place] [address] [place] [phone] PCP - General Family Medicine 09/22/20 documented as of this encounter
--- OUTSIDE RECORDS SUMMARY | 2024-10-01 03:37 | External Medical Summary | Summary of Care ---
Author Name Unknown Organization [facility] Address [address] [place] [address] Phone [phone] Care Team Providers Care Machinist Set Up Name Role Phone Lashawn Mejia MD Primary Care Prov ider Reason for Visit * Reason Onset Date Comments Follow Up 04/20/2024 Encounter Details Date Type Department Care Team (Late st Contact Info) Description 04/20/2024 Telephone Gynecology/Oncology, [place] [address] [place], [place] [phone] Jazymn Mcclure PA-C [address] [place] [address] Follow Up Allergies Active Allergy Reactions Criticality Noted Date [...] Information Patient not taking.Reported on 08/26/2023 Nystatin 768249 UNIT/GM External Powder (Nystop)Indications: Skin irritation Apply topically to affected area as needed for Other (Skin irritation and pain). 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 B. Skin, left vulva, biopsy: [...] encounter Miscellaneous Notes * Telephone Encounter - Jazmyn Mcclure PA-C - 04/20/2024 9:58 AM EDT Called patient to review imaging and tumor markers labs. Discussed with the patient that this imaging was also review by Dr Triplett, and there is no evidence of disease seen post treatment. Tumor markers are also within normal limits. Therefore recommendations are to continue to proceed with surveillance. Patient states she is still having episodes of vaginal bleeding, although she is not saturating a pad. Will review with Dr Triplett. Also will discuss plan with Dr Wilson in Hematology Oncology. Patient also inquired if she should proceed with scheduled CT scan per Dr Wilson in June since she had this one. Will also communicate that question with him. Offered patient follow up appointment, however patient states she does not want to follow up at this time and is possibly seeking care at another facility. Encouraged her to notify our office should she change her mind Jazmyn Mcclure PA-C Gynecologic Oncology 04/20/2024 documented in this encounter Plan of Treatment Upcoming Encounters Date Type Department Care Team (Late st Contact Info) Description 04/29/2024 8:45 AM EDT Nurse Only Hematology/Oncology Treatment, [place] [address] [facility] [phone] Rosario, Chair 2 Hem Onc [address] [place] [address] 04/29/2024 9:20 AM EDT Office Visit Neurology [facility] [place] 200 [facility] [place] [address] Clif Mckeon MD [address] [place] [address] 06/09/2024 10:00 AM EST Laboratory Laboratory, [facility] [phone] Luis [place] [facility] [place] [address] 06/09/2024 10:15 AM EST Imaging Radiology [address] [place] [address] 06/16/2024 10:30 AM EST Office Visit Hematology/Oncology [facility] Rosario [place] [address] [place] [phone] Flaquita Wilson MD [address] [place] [address] Health Maintenance Due Date Last Done Comments [...] 023, 12/14/2020, 10/21/2007 CKD PHOS USE SMARTSET 20240 12/26/202[address] 07/2022, 01/16/2016, 02/16/2015, Additional history exists HbA1c 12/26/2023 12/25/2022, 07/0 07/2021, 12/14/2020, Additional history exists COVID-19 Vaccine ( season) 2024 Influenza Vaccine (FLU shot) (#1) 2024 05/14/2010 TSH 03/21/2024 03/21/2023, 08/0 09/2022, 12/25/2022, Additional history exists GFR 10/08/2024 04/09/2024, 09/0 10/2023, 02/17/2024, Additional history exists CKD HGB USE SMARTSET 52673 03/10/202503/10, 03/10/2024, 02/17/2024, Additional history exists Lipid [...] this encounter Medical Devices Implanted Type Area Health Sciences Department Chair Device Identifier Shelf Expiration Date Model / Serial / Lot Port Implant W8f Poly Cath - [id number] Implanted:Qty : 1 on 09/05/2023 by Orville Zendejas MD at [facility] Right: Chest CR BARD : PERIPHERAL VASCULAR [id number] 06/05/2024 [id number] / / [id number] documented as of this encounter Advance Directives * Full Code (Latest Code Status on File) Date Activated Date Inactivated Comments 02/19/2022 1:10 PM 02/19/2022 8:22 PM This order r eflects the patients wishes and were consensually agreed upon. Question Answer Comments Discussion of Advance Directives occurred with: Not Discussed Care Teams Machinist Set Up Relationship Specialty Start Date End Date Lashawn Mejia MD [address] [place] [address] [place] [phone] PCP - General Family Medicine 09/22/20 documented as of this encounter
--- OUTSIDE RECORDS SUMMARY | 2024-10-01 03:38 | External Medical Summary | Summary of Care ---
Author Name Unknown Organization [facility] Address [address] [place] [address] Phone [phone] Care Team Providers Care Salvationist Name Role Phone Lashawn Mejia MD Primary Care Prov ider Reason for Referral * Precert (Within 10 days (routine)) - Pending Review Specialty Diagnoses / Procedures Referred By Radha santana Referred To Contact Radiology Diagnoses Endometrial cancer (HCC) Procedures CT CHEST/ABDOMEN/PELVIS WITH IV CONTRAST WITH ORAL CONTRAST Jazmyn Mcclure PA-C [address] [place] [address] Referral ID Status Reason Start Date Expiration Date V isits Requested Visits Authorized [id number] Pending Review 04/13/2024 999 999 Reason for Visit * Reason Comments Follow Up After treatment Encounter Details Date Type Department Care Team (Late st Contact Info) Description 04/06/2024 9:30 AM EDT Office Visit Gynecology/Oncology, [place] [address] [place] [address] Jazmyn Mcclure PA-C [address] [place] [address] Endometrial cancer (HCC)* Allergies Active Allergy Reactions Criticality Noted Date Comments Gabapentin Neuro complications (Please comment),Tachycardia 02/06/2023 Hallucinations documented as of this encounter (statuses as of 04/06/2024) Medications Medication Sig Dispensed Refills Start Date [...] Information Patient not taking.Reported on 08/26/2023 Nystatin 027263 UNIT/GM External Powder (Nystop)Indications: Skin irritation Apply topically to affected area as needed for Other (Skin irritation and pain). 60 g 5 04/14/2023 Active Additional Information Patient not taking.Reported on 08/26/2023 Nystatin-Triamcinolo [place] 064932-4.1 UNIT/GM-% External Cream (Mycolog)Indications :Vulvar irritation Apply [...] as of this encounter (statuses as of 04/06/2024) Active Problems Problem Noted Date Diagnosed Date Encounter for antineoplastic chemotherapy 2023 Vulvar irritation 05/12/2023 Overview: BIOPSY (05/06/2023) -- BENIGN A. Skin, right vulva, biopsy: Benign mature sebaceous glands with minimal inflammation. Negative for dysplasia and malignancy. Comment: The findings are non-specific, although sebaceous hyperplasia was considered. Clinical correlation is required to determine if the biopsy if client services representative. B. Skin, left vulva, biopsy: [...] as of this encounter (statuses as of 04/06/2024) Resolved Problems Problem Noted Date Diagnosed Date [...] as of this encounter (statuses as of 04/06/2024) Immunizations Name Administration Dates Next Due Seasonal [...] Sign Reading Time Taken Comments Blood Pressure 125/78 04/06/2024 9:11 AM EDT Pulse 69 04/06/2024 9:11 AM EDT Temperature - - Respiratory Rate - - Oxygen Saturation - - Inhaled Oxygen Concentration - - Weight - - Height - - Body Mass Index - - documented in this encounter Progress Notes * Jazmyn Mcclure PA-C - 04/06/2024 9:05 AM EDT CC: Recurrent endometrial cancer surveillance. HPI: Lissette CHAVEZ is a 59 year old female with a history of Recurrent endometrial cancer who returns today for routine surveillance examination. Her oncology history is as follows: Treatment Summary Endometrial cancer (HCC) 12/28/2021 Initial Diagnosis Endometrial cancer (office, 9 cm) Endometrial biopsy: Endometrial adenocarcinoma, endometrioid type, preliminary FIGO 2 grade from this biopsy Ca 125: 9.3 CEA: 1.0 Ca 19-9: 3.6 02/19/2022 Surgery Robotic assisted total laparoscopic hysterectomy with bilateral salpingo- oophorectomy bilateral sentinel pelvic lymph node dissection. Stage IA grade 2 endometrioid adenocarcinoma of the uterus. 02/19/2022 Genetics Testing Results Patient has genetic testing done for microsatellite instability. Results revealed patient has the following mutation(s): NONE 02/19/2022 Cancer Staged Staging form: Corpus Uteri - Carcinoma And Carcinosarcoma, AJCC 8th Edition, Clinical stage from 02/19/2022: FIGO Stage IA (cT1a, cN0(sn), cM0) - Signed by Keegan Triplett MD on 02/22/2022 07/03/2023 Procedure Colonoscopy at [facility] " Ulcerated mucosa with stigmata of recent bleeding were present in the sigmoid colon. Biopsies were taken with a cold forceps for histology" 07/03/2023 Biopsy MICROSLIDE CONSULT Outside slide review/ [facility]/ [id number]/ [id number] stained slides & Block A1 (1 H&E and 8 IHC) Sigmoid colon, ulcerated mucosa, biopsy: Atypical endometrial glands within hyperplastic colonic mucosa Comment: H&E stained slides show fragmented minute colonic tissue with atypical glands in a background of hyperplastic colonic mucosa. There is mucosal hemorrhage present. Foci of squamoid cells are also present. Multiple deeper levels have been examined. Immunohistochemical stains performed at the outside institution with adequate controls on block A1 were performed. The atypical glands are positive for CK7, PAX8, and ER (patchy) while they are negative for CK20 and CDX2. p53 shows a wild-type pattern in the atypical glands. CD10 shows a high background staining pattern but the H&E slides do not show obvious endometrial stroma which would support endometriosis. The Ki67 proliferative index is increased in the atypical glands (approximately 10%). An additional immunohistochemical stain forp40 performed at our institution with adequate controls shows focal strong staining. The morphology and immunohistochemical profile support the above diagnosis of atypical endometrial glands. The patient's history of superficially myoinvasive endometrioid type endometrial adenocarcinoma, FIGO grade 2, with squamous differentiation is noted. The combined findings of atypical endometrial glands with focal squamous differentiation without endometrial stroma would support a diagnosisof metastatic endometrial carcinoma. Endometriosis cannot be definitively excluded. 07/16/2023 Discussion Ca 125: 83.2 Ca 19-9: 212.8 CEA: 3.1 07/23/[address] C/A/P IMPRESSION: Given history of hysterectomy 02/2022, the mass in the region of the uterus is highly concerning forlocal recurrence. The mass is inseparable from the urinary bladder anteriorly and the sigmoid colonposterior superiorly concerning for invasion. MRI of the pelvis with and without intravenous contrast may be of value for further evaluation. Mass measures approximately 5.6 x 4.7 x 5.9 cm (AP by transverse by cc). Stable round 1 cm right common iliac lymph node. No new or enlarging lymphadenopathy. Stable 2 mm left lower lobe nodule. No definite CT evidence of thoracic metastatic disease. 08/06/2023 Progression 08/06/2023 Biopsy Pelvis, CT/US guided core needle biopsy: Adequacy: Satisfactory for evaluation. Category: Malignant. Interpretation: Metastatic carcinoma, favor endometrial adenocarcinoma Other: Biopsy: The histological sections of the biopsy specimen contain fragments of tissue. Comment: The touch preparations and histologic sections of cell block show clusters of malignant appearing epithelial cells with glandular and squamous differentiation. Immunohistochemical studies with appropriate controls are performed (A1); the tumor cells are positive for PAX-8 and CK7 with the CDX-2 highlighting areas of squamous differentiation while the SARA-3, CK20, and p40 are negative. Overall the morphology and immunohistochemical profile supports the diagnosis of endometrioid adenocarcinoma with squamous differentiation. Recommend correlation with clinical and radiographic findings. 09/08/2023 - 10/20/2023 Chemotherapy 3 cycles carboplatin AUC 6 and paclitaxel 175 milligrams/meters squared Q 21 days 11/12/2023 - 01/07/2024 Radiation 5040 Gy external beam radiation therapy at [facility] Ca 125: 6.1 01/27/2024 - 03/10/2024 Chemotherapy 3 cycles single agent Carboplatin. Taxol was omitted per Hematology Oncology secondary to issues with neuropathy. CA 125: PENDING Ca 19-9: PENDING CT C/A/P 02/10/2024 FINDINGS CHEST LUNGS, PLEURA: Patent central airways. Bilateral lower lobe subsegmental atelectasis versus scarring. No suspicious pulmonary nodule. No pleural effusion. CARDIOVASCULAR, MEDIASTINUM: Normal heart size. No pericardial effusion. Mitral annular calcification. Normal caliber of the thoracic aorta and main pulmonary artery. LYMPH NODES: No lymphadenopathy. CHEST WALL AND LOWER NECK: Right chest wall MediPort. ABDOMEN/PELVIS LIVER: Enlarged measuring 21.0 cm. Normal morphology. No suspicious mass. BILE DUCTS: No biliary ductal dilation. GALLBLADDER: Contracted. No radiopaque stones. PANCREAS: Unremarkable. No main pancreatic duct dilation. SPLEEN: Unremarkable. ADRENAL GLANDS: Unremarkable. KIDNEYS/URETERS: No hydronephrosis. Small right-sided extrarenal pelvis. Ill- defined hypoattenuation in the lower pole of the right kidney, nonspecific a new from prior CT. Findings may be sequela ofprior infection. BLADDER: Grossly normal. REPRODUCTIVE ORGANS: ARISTEO/BSO. Near complete interval resolution of the previously seen recurrent mass at the vaginal cuff. Tethering of the adjacent sigmoid colon was demonstrates mild wall thickening. Findings likely reflective of posttreatment changes, however small amount of residual viable tumor would be difficult to excluded. BOWEL: No bowel obstruction. Normal appendix. PERITONEUM/RETROPERITONEUM: No fluid collection, ascites, or pneumoperitoneum. LYMPH NODES: No lymphadenopathy. VESSELS: No abdominal aortic aneurysm. ABDOMINAL/PELVIC WALL: Unremarkable. BONES: Degenerative changes of the spine. No suspicious osseous lesion. IMPRESSION Near complete interval resolution of the recurrent mass at the vaginal cuff. Mild focal wall thickening of the sigmoid colon inseparable from the vaginal cuff, likely representing posttreatment changes. No new site of disease identified. Focal ill-defined hypoattenuation involving the right renal lower pole, nonspecific, new. Findings may be sequela of prior infection. Attention on routine follow-up exam recommended. CA 125 CA 19-9 Latest Ref Rng <=38.1 U/mL <35.0 U/mL 01/04/2022 9.3 3.6 07/16/2023 83.2 (H) 212.8 (H) 01/27/2024 6.1 Legend: (H) High Today she returns with complaints of bleeding x 1 week. She notes that this bleeding started as a light pink, but over the days it has slowly gotten darker. She is not saturating a pad. She is using about 3 pads a day, stating it is uncomfortable to have the blood on her pad. Denies blood in the urine or stool. 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 She was started on Cymbalta per Heme Onc, however she is no longer taking it due to tolerance. She denies difficulty ambulating at home, however she does have difficulty ambulating with long distances. She useda wheelchair today for transportation down the longer hallway to the clinic. She has an appointmentwith Neurology for further evaluation and management. She continues to have some fatigue lingering following cancer directed treatment. She denies change in bowel or bladder habits, increasing abdominal girth, early satiety, bloating, lower back pain, flank pain, sciatica, lower leg edema. Review of Systems Review of Systems Constitutional: Positive for fatigue. Negative for appetite change, chills, fever and unexpected weight change. Respiratory: Negative for cough, chest tightness, shortness of breath and wheezing. Cardiovascular: Negative for chest pain, palpitations and leg swelling. Gastrointestinal: Negative for abdominal distention, abdominal pain, constipation, diarrhea, nauseaand vomiting. Genitourinary: Positive for vaginal bleeding. Negative for dyspareunia, dysuria, flank pain, pelvicpain, urgency, vaginal discharge and vaginal pain. Neurological: Positive for numbness. Psychiatric/Behavioral: The patient is not nervous/anxious. All others negative, except as noted above. Medical and surgical history, medications, and allergies have been updated since last office visit. Health Maintenance: Last Mammogram: 2019 Last Colonoscopy: 07/03/2023 Past Medical History: Diagnosis Date Adult body mass index 50.0-59.9 ([facility]) 09/21/2010 DDD (degenerative disc disease), cervical 12/16/2014 mild DDD C5-6 and C6-7 Dyslipidemia, goal LDL below 100 09/21/2010 Female stress incontinence Iron deficiency anemia Obesity, morbid (more than 100 lbs over ideal weight or BMI > 40) ([facility]) 08/24/2015 Other organic sleep apnea Prediabetes 01/20/2016 [...] performed by Orville Zendejas MD at OR [facility] IR BIOPSY 08/06/2023 KNEE ARTHROSCOPY/DEBRIDEMENT 09/04/2009 right knee KNEE ARTHROSCOPY/SURGERY 08/18/1997 left knee - Dr. Pace LAPAROSCOPY TOTAL HYSTX, UTERUS 250GM OR LESS TUBE/OVARY N/A 02/19/2022 ROBOTIC LAPAROSCOPIC HYSTERECTOMY REMOVAL TUBES AND OVARIES FOR UTERUS 250GM OR LESS performed by Keegan Triplett MD at OR [facility] LIGATE/CUT OVIDUCT(S) MRI C SPINE WO CONTRAST 12/16/2014 degenerative disc C5-6 with mild foraminal narrowing, DDD C6-7 without copmpromise STRESS ECHO (EXERCISE) N/A 09/29/2020 no inducible ischemia. LV function, EF 55% Current Outpatient Medications Medication Sig Dispense Refill buPROPion HCl ER (XL) 150 MG Oral Tablet Extended Release 24 Hour (Wellbutrin XL) Take1 Tablet by mouth in the morning. (Patient not taking: Reported on 08/26/2023) 90 Tablet 1 Docusate Sodium 100 MG Oral Capsule (Colace) Take 1 Capsule by mouth in the morning and 1 Capsule before bedtime. (Patient not taking: Reported on 08/26/2023) Lisinopril 5 MG Oral Tablet (Prinivil) Take by mouth 1 Tablet in the morning. 90 Tablet 1 Naltrexone HCl 50 MG Oral Tablet (Revia) Take 1/2 tab by mouth once a day for 1 week then take 1/2 tab twice a day (morning & late afternoon) (Patient not taking: Reported on 08/26/2023) 30 Tablet1 Nystatin 655738 UNIT/GM External Powder (Nystop) Apply topically to affected area as needed for Other (Skin irritation and pain). (Patient not taking: Reported on 08/26/2023) 60 g 5 Nystatin-Triamcinolone 514473-2.1 UNIT/GM-% External Cream (Mycolog) Apply topically to affected area 2 times a day. Apply to the areas of vulvar pain and irritation (Patient not taking: Reported on 08/26/2023) 30 g 0 dexAMETHasone 4 MG Oral Tablet Take 5 tab (20 mg) 12 and 6 hours before chemo 60 Tablet 0 Ondansetron HCl 8 MG Oral Tablet Take 1 Tablet by mouth every 8 hours as needed for Nausea. 30 Tablet 0 Prochlorperazine Maleate 10 MG Oral Tablet (Compazine) Take 1 Tablet by mouth every 6 hours as needed for Nausea. (Patient not taking: Reported on 01/27/2024) 30 Tablet 0 Lidocaine-Prilocaine 2.5-2.5 % External Cream (Emla) APPLY TO SKIN OVER MEDIPORT & COVER 1HR PRIOR TO ACCESSING. 30 g 1 traZODone HCl 50 MG Oral Tablet (Desyrel) Take 1 Tablet by mouth at bedtime. (Patient not taking: Reported on 01/27/2024) 30 Tablet 0 Pregabalin 50 MG Oral Capsule (Lyrica) Take 1 Capsule by mouth in the morning and 1 Capsule before bedtime. 60 Capsule 0 Levothyroxine Sodium 200 MCG Oral Tablet (Levoxyl) Take 1 Tablet by mouth daily first thing in the morning. (at least 30 min prior to breakfast or other meds) 90 Tablet 1 rOPINIRole HCl 2 MG Oral Tablet (Requip) Take 1 Tablet by mouth in the morning and 1 Tablet at noonand 1 Tablet in the evening and 1 Tablet before bedtime. 120 Tablet 5 oxyCODONE-Acetaminophen 5-325 MG Oral Tablet (Percocet) Take 1 Tablet by mouth every 4 hours as needed for Pain, Moderate. 60 Tablet 0 No current facility-administered medications for this visit. Family History Problem Relation Name Age of Onset Hypertension Mother Cancer Mother laryngeal Cancer Father prostate Thyroid Disorder Sister Other (Lupus) Sister Thyroid Disorder Sister Half sister Cancer Mother noemi sonithor Thyroid Disorder Mother noemi sonithor Hypertension Mother noemi sonithor Arthritis Grandmother (Maternal) Thyroid Disorder Sister [employer] ECOG Performance Scale: 2 PHYSICAL EXAM: BP 125/78 (BP Site: Left Arm, BP Position: Sitting, BP Cuff Size: Regular) | Pulse 69 General: well developed woman in no acute distress. Alert and oriented x 3, appropriate mood and affect Neck: supple, no thyromegaly, no cervical lymphadenopathy, no nodularity No palpable supraclavicular lymph nodes Lungs: clear to auscultation bilaterally, unlabored respiratory effort, equal chest rise bilaterally CV: normal rate and rhythm, no murmur or gallop Breasts: deferred Abdomen: soft, bowel sounds present, non-tender, non-distended, no palpable masses No CVA tenderness bilaterally No palpable inguinal lymphadenopathy bilaterally Vulva: no suspicious lesions, no rash, no discoloration, non-tender Vagina: vaginal cuff visualized using the long metal speculum for full visualization, dark blood removed from the vaginal canal using 2 scopettes, no visible bleeding mass on speculum exam amenable to biopsy Cervix: surgically absent Bimanual: no palpable masses or nodularity on bimanual. RV: deferred Extremities: no peripheral edema, no calf tenderness Neuro: grossly intact, fluent speech, attentive Skin: warm, dry, no worrisome lesions Body And Frame Technician Documentation Patient offered cytometry technologist and accepted. Name of cytometry technologist: Chelsea Crawford RN Impression: - Recurrent endometrial cancer - patient has completed adjuvant treatment, but has been having new vaginal bleeding x 1 week. Plan: Recurrent endometrial cancer - Dicussed with the patient that due to her new symptoms and vaginal bleeding noted on exam, there is possible concern for progressive versus persistent disease. Her most recent CT scan was prior to the completion of full treatment, and her tumor markers were last drawn in January. Therefore, her imaging and labs are not up to date. - Recommend proceeding with having tumor markers drawn. Order placed - Order placed for updated CT C/A/P with IV and PO contrast - Discussed with the patient that treatment recommendations will be based on imaging. Discussed that imaging may show no evidence of disease, persistent disease, or possible progressive disease. She expressed understanding. Patient verbalized understanding of diagnosis & treatment plan and had no further questions. I spent a total of 20-29 minutes (exact time 29 mins) on the date of service in preparation, delivery, and documentation of the care provided to Lissette CHAVEZ excluding any time spent in the performance of separately billed services. Jazmyn Mcclure PA-C Gynecologic Oncology 04/06/2024 documented in this encounter Nursing Notes * Lurdes Osborn MED ASSIST - 04/06/2024 9:12 AM EDT Lissette presents in clinic today for follow up after treatment states she has been bleeding for aweek documented in this encounter Plan of Treatment Upcoming Encounters Date Type Department Care Team (Late st Contact Info) Description 04/21/2024 9:30 AM EDT Nurse Only [facility]emat[facility] [place] [facility] [phone] 04/29/2024 9:20 AM EDT Office Visit [facility] [address] Clif Mckeon MD [address] [facility] [place] [address] 06/09/2024 10:00 AM EST Laboratory Laboratory, [address] [place] [phone] [facility] [address] [facility] [place] [address] 06/09/2024 10:15 AM EST Imaging Radiology [facility] [address] [facility] [place] [address] 06/16/2024 10:30 AM EST Office Visit [facility] [address] [place] [phone] Flaquita Wilson MD [address] [place] [address] Scheduled Orders Name Type Priority Associated Diagnoses Orde r Schedule CA 125 Lab Routine Endometrial cancer (HCC) Expected: 04/13/2024, Expires: 04/06/2025 CA 19-9 Lab Routine Endometrial cancer (HCC) Expected: 04/13/2024, Expires: 04/06/2025 CT CHEST/ABDOMEN/PELVIS WITH IV CONTRAST WITH ORAL CONTRAST Medical Imaging Routine Endometrial cancer (HCC) Expected: 04/13/2024, Expires: 05/07/2025 CREATININE Lab Routine Endometrial cancer (HCC) Expected: 04/13/2024, Expires: 04/06/2025 Health Maintenance Due Date Last Done Comments [...] 023, 12/14/2020, 10/21/2007 CKD PHOS USE SMARTSET 11583 12/26/202312/062023, 01/16/2016, 02/16/2015, Additional history exists HbA1c 12/26/2023 12/25/2022, 070 07/2021, 12/14/2020, Additional history exists COVID-19 Vaccine ( season) 2024 Influenza Vaccine (FLU shot) (#1) 2024 05/14/2010 TSH 03/21/2024 03/21/2023, 080 09/2022, 12/25/2022, Additional history exists GFR 09/07/2024 03/10/2024, 02/04, 01/27/2024, Additional history exists CKD HGB USE SMARTSET 44230 03/10/202503/10, 03/10/2024, 02/17/2024, Additional history exists Lipid [...] this encounter Medical Devices Implanted Type Area Member Of Technical Staff Device Identifier Shelf Expiration Date Model / Serial / Lot Port Implant [id number] Poly Cath - [id number] Implanted:Qty : 1 on 09/05/2023 by Orville Zendejas MD at OR [facility] Right: Chest CR BARD : PERIPHERAL VASCULAR [id number] 06/05/2024 [id number] / / [id number] documented as of this encounter Visit Diagnoses [...] Directives occurred with: Not Discussed Care Teams Salvationist Relationship Specialty Start Date End Date Lashawn Mejia MD [address] [place] [address] [place] [phone] PCP - General Family Medicine 09/22/20 documented as of this encounter
[2024-10-01] MEDS: LEVOTHYROXINE SODIUM 200 MCG TABLET PO SCH (05:53)
[2024-10-01 07:04] LABS: Basophils # (auto) 0.03 K/uL (0.00-0.20); Basophils % (auto) 0.3 %; Eosinophils # (auto) 0.15 K/uL (0.00-0.50); Eosinophils % (auto) 1.5 %; Hematocrit (blood only) 30.6 % (37.0-47.0); Hemoglobin 9.5 g/dl (12.0-16.0); Immature Granulocytes # (auto) 0.11 K/uL (0.01-0.20); Immature Granulocytes % (auto) 1.1 %; Lymphocytes # (auto) 0.48 K/uL (1.20-3.40); Lymphocytes % (auto) 4.8 %; Mean Corpuscular Hemoglobin 25.3 pg (25.0-34.0); Mean Corpuscular Volume 81.6 fL (80.0-100.0); Mean Platelet Volume 8.8 fL (9.4-12.4); Monocytes # (auto) 1.12 K/uL (0.11-0.59); Monocytes % (auto) 11.3 %; Neutrophils # (auto) 8.02 K/uL (1.40-6.50); Nucleated RBC # (auto) 0.02 K/uL (0.00-0.12); Nucleated RBC % (auto) 0.2 %; Platelet Count 275 K/uL (130-400); RDW Coefficient of Variation 18.6 % (11.5-14.5); RDW Standard Deviation 53.7 fL (36.4-46.3); Red Blood Count 3.75 M/uL (4.20-5.40); White Blood Count 9.91 K/ul (4.8-10.8)
--- NOTE | 2024-10-01 07:06 | Ultrasound Report ---
EXAM: US carotid doppler BI CLINICAL HISTORY: CVA TECHNIQUE: Ultrasound examination of the carotid arteries was performed in real-time and duplex. One or more of the following were performed- spectral analysis, resistive index, waveform analysis, and pulsed Doppler. COMPARISON: None. FINDINGS: Doppler Profile: Vessel Right (PSV/EDV cm/sec) Left (PSV/EDV cm/sec) Common Carotid Artery (CCA) - Proximal 95.4/24.7 cm/sec 96 / 30.7 cm/sec Common Carotid Artery (CCA) - Distal 94.2 / 30.7 cm/sec 70.6 / 23.4 cm/sec Bulb 72.4 / 23.4 cm/sec 85.1 / 25.2 cm/sec Internal Carotid Artery (ICA) - Proximal 114.3 / 25.7 cm/sec 96 / 27 cm/sec Internal Carotid Artery (ICA) - Distal 96.2 / 34.1 cm/sec 112.3 / 37.9 cm/sec External Carotid Artery (ECA) 79.7 / 7.1 cm/sec 72.4 / 16.1 cm/sec Vertebral Artery (VA)38.9 38.9 / 14.6 cm/sec 50.4 / 16.4 cm/sec Right ICA/CCA Ratio 1.2 Left ICA/CCA Ratio 1.6 Plaque Characterization: Mild atherosclerotic changes. No flow-limiting atherosclerotic plaques were identified. Stenosis Evaluation: No significant stenosis in the internal carotid artery bilaterally. ICA/CCA ratio remains within normal limits (less than 2.0). Vertebral Arteries: Normal flow noted in the vertebral arteries bilaterally. No evidence of vertebral artery stenosis or subclavian steal phenomenon. Additional Findings: No evidence of dissection, aneurysm, or significant intimal thickening. Exam limited by increased BMI. IMPRESSION: 1. Normal flow characteristics with no evidence of significant stenosis or occlusion. 2. Mild atherosclerotic changes. 3. Clinical correlation with symptoms and further evaluation as indicated. Routine follow-up or additional imaging may be recommended based on clinical presentation or if significant plaque is identified. NASCET Criteria for carotid stenosis: Degree of Stenosis Measurement Criteria (Angiography) Peak Systolic Velocity (PSV) End Diastolic Velocity (EDV) PSV Ratio ICA/CCA Clinical Indications for Surgery Normal No narrowing 125 cm/s 40 cm/s 2.0 Not indicated for surgery Mild Stenosis 50% narrowing of the carotid artery 125 cm/s 40 cm/s 2.0 Generally, not indicated for surgery Moderate Stenosis 50% to 69% narrowing of the carotid artery 125 - 230 cm/s 40 - 100 cm/s 2.0 - 4.0 May be considered for surgery based on individual factors Severe Stenosis 70% to 99% narrowing of the carotid artery 230 cm/s 100 cm/s 4.0 Recommended for surgery in symptomatic patients Total Occlusion 100% blockage of the carotid artery No flow detected No flow detected Not applicable Surgery is not typically performed due to complete blockage Electronically signed by Mata Stratton 10-01-2024 07:06 AM
[2024-10-01 07:20] LABS: BUN Creatinine Ratio 14.1 (10-20); Calcium 8.8 mg/dl (8.6-10.3); Chol HDL Ratio 3.6 (0-5); Creatinine Clr Calc Pharmacy 49.9 ml/min; Potassium 4.4 mmol/L (3.5-5.1)
[2024-10-01 08:18] LABS: Estimated Average Glucose 111 mg/dl; Hemoglobin A1C 5.5 % (4.5-5.6)
[2024-10-01] MEDS: POLYETHYLENE (MIRALAX) 17 GM PACK PO SCH (08:38)
[2024-10-01] MEDS: lisinopril 5 MG TAB PO SCH (08:40)
[2024-10-01] MEDS: ASPIRIN 81 MG ECTAB PO SCH (08:40)
[2024-10-01] MEDS: OXYBUTYNIN CHLORIDE XL 5 MG TABCR PO SCH (08:41)
[2024-10-01] MEDS ORDERED: B12 PO SCH (09:00)
[2024-10-01] MEDS: PROCHLORPERAZINE MALEATE 10 MG TAB PO PRN (10:17)
[2024-10-01] MEDS ORDERED: HEPARIN 100 UNIT/ML 5ML FLUSH FLUSH PRN (10:26)
[2024-10-01] MEDS: ALPRAZolam 0.25 MG TABLET PO STA (11:13)
--- NOTE | 2024-10-01 11:43 | Anesthesiology Consultation ---
Date of Service October 01, 2024 Assessment & Plan (1) Encounter for pre-operative examination: Chart Review Chart Review: Acceptable Risk for Surgery History Surgery Operation Date: 10/01/24 09:40 Proposed Procedures p Cystoscopy, Retrograde Pyelogram, Right Ureteral Stent Placement - Keegan Chun MD Height/Weight Height: 5 ft 3 in Weight: 143.335 kg Allergies Allergy/AdvReac Type Severity Reaction Status Date / Time gabapentin Allergy hallucinations, Verified 10/02/23 08:49 tachycardia, "arms started flying" Medications Home Medications Medication Instructions Recorded Confirmed Last Taken ibuprofen 200 mg capsule 400 mg PO Q6H PRN Pain 06/24/23 09/30/24 Unknown lisinopril 5 mg tablet 5 mg PO QAM 06/24/23 09/30/24 06/26/23 docusate sodium 100 mg capsule 100 mg PO BID PRN Constipation 10/02/23 09/30/24 Unknown levothyroxine 200 mcg capsule 200 mcg PO QAM 10/02/23 09/30/24 Unknown nystatin 100,000 unit/gram topical 1 applic topical DAILY PRN Other 10/02/23 09/30/24 Unknown powder nystatin-triamcinolone 100,000 1 applic topical BID PRN Other 10/02/23 09/30/24 Unknown unit/g-0.1 % topical cream ondansetron HCl 8 mg tablet 8 mg PO Q8H PRN n/v 10/02/23 09/30/24 Unknown prochlorperazine maleate 10 mg 10 mg PO Q6H PRN n/v 10/02/23 09/30/24 Unknown tablet (Compazine) ropinirole 2 mg tablet 3 mg PO TID 10/02/23 09/30/24 Unknown B12 1 tab PO DAILY 09/30/24 09/30/24 Unknown Dilaudid 2 mg PO Q4H PRN Breakthrough Pain, 09/30/24 09/30/24 Unknown Severe clonazepam 0.5 mg tablet 0.5 - 1 mg PO HS 09/30/24 09/30/24 Unknown lenvatinib 20 mg/day (10 mg x 2) 20 mg PO DAILY 09/30/24 09/30/24 Unknown capsule (Lenvima) nortriptyline 50 mg capsule 50 mg PO HS 09/30/24 09/30/24 Unknown oxybutynin chloride 10 mg 20 mg PO DAILY 09/30/24 09/30/24 Unknown tablet,extended release 24 hr polyethylene glycol 3350 17 gram 17 g PO DAILY 09/30/24 09/30/24 Unknown oral powder packet (Miralax) urea 20 % topical cream 1 applic topical DAILY 09/30/24 09/30/24 Unknown Active Medications Generic Name Dose Route Start Last Admin Trade Name Freq PRN Reason Stop Dose Admin Aspirin 81 mg 10/01/24 09:00 10/01/24 08:40 Aspirin 81 Mg Ectab PO 10/31/24 08:59 81 mg QAM DAVE Administration Clonazepam 0.5 - 1 mg 09/30/24 21:00 09/30/24 22:35 Clonazepam 0.5 Mg Tab PO 10/30/24 20:59 1 mg HS DAVE Administration Doxycycline Hyclate 100 mg 09/30/24 21:45 10/01/24 08:41 Doxycycline Hyclate 100 Mg Cap PO 10/02/24 21:44 100 mg BID DAVE Administration Hydromorphone HCl 2 mg 09/30/24 18:58 10/01/24 00:45 Hydromorphone Hcl 2 Mg Tab PO 10/14/24 18:57 2 mg Q4H PRN Administration Breakthrough Pain, Severe Piperacillin Sod/Tazobactam Sod 4.5 gm in 100 mls @ 25 mls/hr 09/30/24 22:00 10/01/24 09:53 Zosyn IV 10/02/24 21:59 Infused Q8H DAVE Infusion Protocol Levothyroxine Sodium 200 mcg 10/01/24 06:30 10/01/24 05:53 Levothyroxine Sodium 200 Mcg Tablet PO 10/31/24 06:29 200 mcg DAILYBB DAVE Administration Lisinopril 5 mg 10/01/24 09:00 10/01/24 08:40 Lisinopril 5 Mg Tab PO 10/31/24 08:59 5 mg QAM DAVE Administration Miconazole Nitrate 1 appln 09/30/24 21:00 10/01/24 08:40 Miconazole Nitrate 2% Cr 30 Gm Tube EXT 10/30/24 20:59 1 appln BID DAVE Administration Miscellaneous 1 each 10/01/24 08:00 10/01/24 07:04 Urea 20%~Order Awaiting Action N/A 10/31/24 07:59 Not Given QS DAVE Non-Formulary 1 each 10/01/24 09:00 10/01/24 11:13 Patient's Own Med PO 10/31/24 08:59 2 tab Lenvima Dose 20 Mg DAILY DAVE Administration Nortriptyline HCl 50 mg 09/30/24 21:00 09/30/24 22:33 Nortriptyline Hcl 25 Mg Cap PO 10/30/24 20:59 50 mg HS DAVE Administration Nystatin 1 appln 09/30/24 21:00 10/01/24 08:40 Nystatin Powder 15gm Btl EXT 10/30/24 20:59 1 appln QID DAVE Administration Oxybutynin Chloride 20 mg 10/01/24 09:00 10/01/24 08:41 Oxybutynin Chloride Xl 5 Mg Tabcr PO 10/31/24 08:59 20 mg DAILY DAVE Administration Polyethylene Glycol 17 gm 10/01/24 09:00 10/01/24 08:38 Polyethylene (Miralax) 17 Gm Pack PO 10/31/24 08:59 Not Given DAILY DAVE Prochlorperazine 10 mg 10/01/24 09:28 10/01/24 10:17 Prochlorperazine Maleate 10 Mg Tab PO 10/31/24 09:29 10 mg Q6H PRN Administration nausea/vomiting Ropinirole HCl 3 mg 09/30/24 21:00 10/01/24 08:40 Ropinirole Hcl 1 Mg Tablet PO 10/30/24 20:59 3 mg TID DAVE Administration Past Medical History Medical History Port-A-Cath in place Pseudotumor cerebri Iron deficiency anemia Stress incontinence Degenerative disc disease, cervical History of panic disorder Recurrent major depressive disorder hx Prediabetes per s record Hx of iron deficiency anemia Dyslipidemia Nausea and vomiting after administration of anesthetic agent w/ first Anxiety and depression History of endometrial cancer Diagnosed 12/28/21 Recurrence diagnosed on 08/06/23 Hx of migraines Sleep apnea non compliant w/device Blood in stool currently, "had been taking 10-200mg tablets per day until 06/21/23" Hypothyroidism Hypertension Restless legs syndrome Past Family History Family History Mother , in her 70s MVA (motor vehicle accident) Cancer "Throat cancer" - had larynx removed; Hypertension Father , in his 70s Myocardial infarction Prostate cancer Brother No problems noted. Brother No problems noted. Brother No problems noted. Sister No problems noted. Sister Lupus Daughter No problems noted. Daughter Brain tumor (benign) Past Surgical History Surgical History H/O tubal ligation Hx of arthroscopic knee surgery Bilateral H/O esophagogastroduodenoscopy History of arthroscopy of both knees Hx of section x2 Hx of colonoscopy [place] teeth removed Hx of total hysterectomy with removal of both tubes and ovaries laparoscopic 02/19/22 Social History Smoking Status: Never smoker Do You Dip or Chew Tobacco: No Hx Alcohol Use: No Hx Substance Use: No substance use type: does not use Physical Exam Vital Signs Last Vital Signs Temp 36.6 C 10/01/24 11:40 Pulse 71 10/01/24 11:40 Resp 16 10/01/24 11:40 BP 138/81 10/01/24 11:40 Pulse Ox 91 10/01/24 11:40 O2 Del Method Room Air 10/01/24 11:40 Testing Laboratory Results 10/01/24 06:28 10/01/24 06:28 PT 11.4 Seconds (9.0-12.0) 09/30/24 15:31 INR 1.1 (0.9-1.1) 09/30/24 15:31 Hemoglobin A1c 5.5 % (4.5-5.6) 10/01/24 06:28 Urine Color Yellow 09/30/24 14:30 Urine Appearance Cloudy (Clear) A 09/30/24 14:30 Urine pH 5.5 (4.5-7.5) 09/30/24 14:30 Ur Specific [place] 1.018 (1.000-1.030) 09/30/24 14:30 Urine Protein 1+ (Negative) H 09/30/24 14:30 Urine Glucose (UA) Negative (Negative) 09/30/24 14:30 Urine Ketones Trace (Negative) H 09/30/24 14:30 Urine Nitrite Negative (Negative) 09/30/24 14:30 Ur Leukocyte Esterase 3+ (Negative) H 09/30/24 14:30 Urine WBC (Auto) >50 /hpf (0-5) H 09/30/24 14:30 Urine RBC (Auto) 11-20 /hpf (0-2) H 09/30/24 14:30 U Hyaline Cast (Auto) 3-5 /lpf (0-2) H 09/30/24 14:30 U Epithel Cells (Auto) 6-10 /hpf (0-2) H 09/30/24 14:30 Urine Bacteria (Auto) 3+ (None Seen) H 09/30/24 14:30 09/30/24 14:30 Urine Culture - Preliminary Urine,Clean Catch Enterococcus faecalis Electrocardiogram Date: 09/30/24 Findings: + NSR @ (63)
[2024-10-01] MEDS ORDERED: MIDAZOLAM HCL 1 MG/ML 2ML VIAL ONE (12:28)
[2024-10-01] MEDS ORDERED: PROPOFOL IV EMULSION 10 MG/ML 20 ML VIAL IV ONE (12:28)
[2024-10-01] MEDS ORDERED: KETAMINE HCL 10MG/ML SYR ONE (12:29)
[2024-10-01] MEDS ORDERED: fentaNYL citrate PF 100 MCG/2 ML VIAL ONE (12:29)
[2024-10-01] MEDS ORDERED: ONDANSETRON INJ 2 MG/ML 2 ML VIAL ONE (12:30)
--- NOTE | 2024-10-01 12:46 | Urology Consultation ---
Date of Consultation October 01, 2024 Assessment & Plan (1) Hydroureteronephrosis: (2) UTI (urinary tract infection), bacterial: (3) TIMMY (acute kidney injury): Plan 59-year-old female with a history of endometrial cancer status postsurgery with a local recurrence who has been treated with chemotherapy and radiation. She presented to hospital and was admitted due to generalized weakness. Labs showed a creatinine of 1.7 and previously outside values had been lower at 1.1. U rinalysis was concerning for infection cultures growing Enterococcus. A CT scan was performed which shows right hydroureteronephrosis with a soft tissue defect in the bladder. Urology was consulted. I reviewed her CT scan I suspect she has had a recurrence in the bladder that is likely obstructing her right ureteral orifice. In the setting of TIMMY and UTI, recommended intervention with cystoscopy and right ureteral stent placement. Discussed that there may be a possibility where I cannot get a stent in place and then she would require transfer for for a right nephrostomy tube. Patient expressed understanding. Discussed that this stent could be a permanent fixture in her treatment depending on how she responds from a cancer perspective Consent obtained Patient marked History of Present Illness Attending Physician: Chirag Rhoades MD History of Present Illness 59-year-old female with a history of endometrial cancer status postsurgery with a local recurrence who has been treated with chemotherapy and radiation. She presented to hospital and was admitted due to generalized weakness. Labs showed a creatinine of 1.7 and previously outside values had been lower at 1.1. Urinalysis was concerning for infection cultures growing Enterococcus. A CT sca n was performed which shows right hydroureteronephrosis with a soft tissue defect in the bladder. Urology was consulted. Allergies Allergy/AdvReac Type Severity Reaction Status Date / Time gabapentin Allergy hallucinations, Verified 10/02/23 08:49 tachycardia, "arms started flying" Home Medications Medication Instructions Recorded Confirmed Type ibuprofen 200 mg capsule 400 mg PO Q6H PRN Pain 06/24/23 09/30/24 History lisinopril 5 mg tablet 5 mg PO QAM 06/24/23 09/30/24 History docusate sodium 100 mg capsule 100 mg PO BID PRN Constipation 10/02/23 09/30/24 History levothyroxine 200 mcg capsule 200 mcg PO QAM 10/02/23 09/30/24 History nystatin 100,000 unit/gram topical 1 applic topical DAILY PRN Other 10/02/23 09/30/24 History powder nystatin-triamcinolone 100,000 1 applic topical BID PRN Other 10/02/23 09/30/24 History unit/g-0.1 % topical cream ondansetron HCl 8 mg tablet 8 mg PO Q8H PRN n/v 10/02/23 09/30/24 History prochlorperazine maleate 10 mg 10 mg PO Q6H PRN n/v 10/02/23 09/30/24 History tablet (Compazine) ropinirole 2 mg tablet 3 mg PO TID 10/02/23 09/30/24 History B12 1 tab PO DAILY 09/30/24 09/30/24 History Dilaudid 2 mg PO Q4H PRN Breakthrough Pain, 09/30/24 09/30/24 History Severe clonazepam 0.5 mg tablet 0.5 - 1 mg PO HS 09/30/24 09/30/24 History lenvatinib 20 mg/day (10 mg x 2) 20 mg PO DAILY 09/30/24 09/30/24 History capsule (Lenvima) nortriptyline 50 mg capsule 50 mg PO HS 09/30/24 09/30/24 History oxybutynin chloride 10 mg 20 mg PO DAILY 09/30/24 09/30/24 History tablet,extended release 24 hr polyethylene glycol 3350 17 gram 17 g PO DAILY 09/30/24 09/30/24 History oral powder packet (Miralax) urea 20 % topical cream 1 applic topical DAILY 09/30/24 09/30/24 History Patient History Medical History Port-A-Cath in place Pseudotumor cerebri Iron deficiency anemia Stress incontinence Degenerative disc disease, cervical History of panic disorder Recurrent major depressive disorder hx Prediabetes per [facility] record Hx of iron deficiency anemia Dyslipidemia Nausea and vomiting after administration of anesthetic agent w/ first Anxiety and depression History of endometrial cancer Diagnosed 12/28/21 Recurrence diagnosed on 08/06/23 Hx of migraines Sleep apnea non compliant w/device Blood in stool currently, "had been taking 10-200mg tablets per day until 06/21/23" Hypothyroidism Hypertension Restless legs syndrome Surgical History H/O tubal ligation Hx of arthroscopic knee surgery Bilateral H/O esophagogastroduodenoscopy History of arthroscopy of both knees Hx of section x2 Hx of colonoscopy [place] teeth removed Hx of total hysterectomy with removal of both tubes and ovaries laparoscopic 02/19/22 Family History Mother , in her 70s MVA (motor vehicle accident) Cancer "Throat cancer" - had larynx removed; Hypertension Father , in his 70s Myocardial infarction Prostate cancer Brother No problems noted. Brother No problems noted. Brother No problems noted. Sister No problems noted. Sister Lupus Daughter No problems noted. 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 How many Children do You have: 2 Other Information That Helps Us Care for You: No Feels Safe at Home: Yes Safety Concerns: Feels Safe At This Time Diet: regular caffeine: No during the past year weight has: remained stable Assistive Devices: Glasses, Lift Chair, Raised Toilet Seat and Walker Physical Exam Physical Exam: General: Alert and oriented, no acute distress HEENT: Normocephalic, mucous membranes moist Pulmonary: Nonlabored respirations Abdomen: Nondistended Extremities: Moves all 4 spontaneously Neuro: No gross deficits Skin: Warm, dry, no rashes noted Results & Data Vital Signs (Past 12 Hours) Vital Signs Temp Pulse Pulse Resp BP Pulse Ox O2 Del Method 10/01/24 11:40 36.6 C 71 16 138/81 91 Room Air 10/01/24 08:14 36.7 C 73 20 135/77 91 Room Air 10/01/24 05:36 74 10/01/24 03:50 36.6 C 75 18 134/78 90 Room Air PG Care Time/CCT Total # of Minutes Spent Total Time Spent with Patient: Total time spent is greater than 50% in coordination of care (as documented) at patient's floor/unit and/or counseling patient: Coding Level of Care Code 78648 IN/OBS CONSULT LVL 3,45M Diagnoses Hydroureteronephrosis N13.30 UTI (urinary tract infection), bacterial N39.0; A49.9 TIMMY (acute kidney injury) N17.9
--- NOTE | 2024-10-01 12:57 | Neurology Consultation ---
Date of Consultation October 01, 2024 Assessment & Plan (1) Embolic stroke: Lissette Chavez is a 59 yo F presenting with hallucinations and word finding difficulties for the past month, found to have leptomeningeal enhancement on MRI concerning for CSF spread of her metastatic CA. Also noted two punctate acute s trokes. Discussed findings at length with the patient and her family at bedside. Regarding the strokes, they are likely secondary to hypercoag of malignancy, though her VEGF inhibitor could rarely increase risk of stroke and should perhaps be discontinued. Regarding the possible lepto carcinomatosis she will decide if she wants further investigations including high volume LP and including potential biopsy if LP is nondiagnostic. Would discuss with oncology if she would want to pursue a change in treatment if carcinomatosis was found. -- Agree with aspirin -- Complete embolic stroke workup with TTE -- Would consider stopping her chemo -- LP for cytology, flow cytometry, cell count, protein, glucose -- Consider oncology involvement to guide decision making Telehealth Consultation Telehealth Information Telehealth Information: I performed this visit using a real-time telehealth connection between my location and the patients location ([facility]). After connecting through interactive tele-video, patient was identified by name and date of and/or wristband check.Patient (or authorized healthcare inbound customer service representative) was informed that this was a telemedicine visit and it was being conducted confidentially over secure lines. My office door was closed and no one else was present in the room with me.Patient (or authorized healthcare inbound customer service representative) provided consent to proceed with the visit, expressed an understanding of privacy and security of the telemedicine visit, and gave permission to have a hospital inbound customer service representative in the room in order to assist with the visit and to conduct portions of the visit, as needed. I informed the patient (or authorized healthcare inbound customer service representative) that I reviewed their record and presented the opportunity for them to ask any questions regarding the visit today. The patient agreed to participate. History of Present Illness Reason for Consultation: Stroke Requesting Physician: Dr. Rhoades Attending Physician: Chirag Rhoades MD Allergies Allergy/AdvReac Type Severity Reaction Status Date / Time gabapentin Allergy hallucinations, Verified 10/02/23 08:49 tachycardia, "arms started flying" Home Medications Medication Instructions Recorded Confirmed Type ibuprofen 200 mg capsule 400 mg PO Q6H PRN Pain 06/24/23 09/30/24 History lisinopril 5 mg tablet 5 mg PO QAM 06/24/23 09/30/24 History docusate sodium 100 mg capsule 100 mg PO BID PRN Constipation 10/02/23 09/30/24 History levothyroxine 200 mcg capsule 200 mcg PO QAM 10/02/23 09/30/24 History nystatin 100,000 unit/gram topical 1 applic topical DAILY PRN Other 10/02/23 09/30/24 History powder nystatin-triamcinolone 100,000 1 applic topical BID PRN Other 10/02/23 09/30/24 History unit/g-0.1 % topical cream ondansetron HCl 8 mg tablet 8 mg PO Q8H PRN n/v 10/02/23 09/30/24 History prochlorperazine maleate 10 mg 10 mg PO Q6H PRN n/v 10/02/23 09/30/24 History tablet (Compazine) ropinirole 2 mg tablet 3 mg PO TID 10/02/23 09/30/24 History B12 1 tab PO DAILY 09/30/24 09/30/24 History Dilaudid 2 mg PO Q4H PRN Breakthrough Pain, 09/30/24 09/30/24 History Severe clonazepam 0.5 mg tablet 0.5 - 1 mg PO HS 09/30/24 09/30/24 History lenvatinib 20 mg/day (10 mg x 2) 20 mg PO DAILY 09/30/24 09/30/24 History capsule (Lenvima) nortriptyline 50 mg capsule 50 mg PO HS 09/30/24 09/30/24 History oxybutynin chloride 10 mg 20 mg PO DAILY 09/30/24 09/30/24 History tablet,extended release 24 hr polyethylene glycol 3350 17 gram 17 g PO DAILY 09/30/24 09/30/24 History oral powder packet (Miralax) urea 20 % topical cream 1 applic topical DAILY 09/30/24 09/30/24 History Patient History Medical History Port-A-Cath in place Pseudotumor cerebri Iron deficiency anemia Stress incontinence Degenerative disc disease, cervical History of panic disorder Recurrent major depressive disorder hx Prediabetes per [facility] record Hx of iron deficiency anemia Dyslipidemia Nausea and vomiting after administration of anesthetic agent w/ first Anxiety and depression History of endometrial cancer Diagnosed 12/28/21 Recurrence diagnosed on 08/06/23 Hx of migraines Sleep apnea non compliant w/device Blood in stool currently, "had been taking 10-200mg tablets per day until 06/21/23" Hypothyroidism Hypertension Restless legs syndrome Surgical History H/O tubal ligation Hx of arthroscopic knee surgery Bilateral H/O esophagogastroduodenoscopy History of arthroscopy of both knees Hx of section x2 Hx of colonoscopy [place] teeth removed Hx of total hysterectomy with removal of both tubes and ovaries laparoscopic 02/19/22 Family History Mother , in her 70s MVA (motor vehicle accident) Cancer "Throat cancer" - had larynx removed; Hypertension Father , in his 70s Myocardial infarction Prostate cancer Brother No problems noted. Brother No problems noted. Brother No problems noted. Sister No problems noted. Sister Lupus Daughter No problems noted. 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 Physical Exam Neurological Examination: Mental Status: Awake and alert. Oriented to person, place, and time. Fluent. Comprehension intact. Affect appropriate. Cranial Nerves: II: Reads NIHSS cards, pupils 3/3 to 2/2, rico grossly intact. III/IV/: Versions intact without nystagmus, no gaze preference. V: Facial sensation symmetric to light touch VII: Facial expression symmetric Motor: Strength was symmetric and antigravity throughout. Pronator drift was absent. There were no abnormal movements. Reflexes: Unable to assess over telemedicine Results & Data Vital Signs (Past 12 Hours) Vital Signs Temp Pulse Pulse Resp BP Pulse Ox O2 Del Method 10/01/24 11:40 36.6 C 71 16 138/81 91 Room Air 10/01/24 08:14 36.7 C 73 20 135/77 91 Room Air 10/01/24 05:36 74 10/01/24 03:50 36.6 C 75 18 134/78 90 Room Air Laboratory Results Abnormal lab results 09/30/24 09/30/24 10/01/24 Range/Units 14:30 15:31 06:28 WBC 10.81 H (4.8-10.8) K/ul RBC 3.94 L 3.75 L (4.20-5.40) M/uL Hgb 9.9 L 9.5 L (12.0-16.0) g/dl Hct 32.4 L 30.6 L (37.0-47.0) % MCHC 30.6 L 31.0 L (32.0-36.0) g/dL RDW Std Deviation 54.3 H 53.7 H (36.4-46.3) fL RDW Coeff of Rodri 18.6 H 18.6 H (11.5-14.5) % MPV 8.6 L 8.8 L (9.4-12.4) fL Neut # (Auto) 9.02 H 8.02 H (1.40-6.50) K/uL Lymph # (Auto) 0.53 L 0.48 L (1.20-3.40) K/uL [place] # (Auto) 1.10 H 1.12 H (0.11-0.59) K/uL BUN 26 H 24 H (6-23) mg/dl Creatinine 1.68 H 1.70 H (0.6-1.2) mg/dl Glucose 103 H (70-99(Fasting)) mg/dl Urine Appearance Cloudy A (Clear) Urine Protein 1+ H (Negative) Urine Ketones Trace H (Negative) Urine Blood 2+ H (Negative) Ur Leukocyte Esterase 3+ H (Negative) Urine WBC (Auto) >50 H (0-5) /hpf Urine RBC (Auto) 11-20 H (0-2) /hpf U Hyaline Cast (Auto) 3-5 H (0-2) /lpf U Epithel Cells (Auto) 6-10 H (0-2) /hpf Urine Bacteria (Auto) 3+ H (None Seen) Diagnostic Findings MRI brain - two punctate infarcts, L cerebellum and L centrum, L frontal leptomeningeal enhancement
[2024-10-01] MEDS ORDERED: ATROPINE SULFATE 0.1 MG/ML 10ML SYR IV PRN (13:09)
[2024-10-01] MEDS ORDERED: HYDROmorphone INJ 1 MG/ML SYRINGE IV PRN (13:09)
[2024-10-01] MEDS ORDERED: fentaNYL citrate PF 100 MCG/2 ML VIAL IV PRN (13:09)
[2024-10-01] MEDS ORDERED: ONDANSETRON INJ 2 MG/ML 2 ML VIAL IV PRN (13:09)
[2024-10-01] MEDS ORDERED: ePHEDrine sulfate 50 MG/ML AMP IV PRN (13:09)
[2024-10-01] MEDS: LACTATED RINGER'S 1,000 ML IV SCH (13:12)
--- OUTSIDE RECORDS SUMMARY | 2024-10-01 13:37 | External Medical Summary | Summary of Care ---
Author Name Unknown Organization [facility] Address [address] [place] [address] Phone [phone] Care Team Providers Care Pipe Foreman Name Role Phone Lashawn Mejia MD Primary Care Prov ider Reason for Visit * Reason Onset Date Comments Forms Request 09/30/2024 FMLA Encounter Details Date Type Department Care Team (Late st Contact Info) Description 09/30/2024 Telephone Hematology/Oncology [facility] [address] [facility] [place] [address] Belinda Christianson CRNP [address] [place] [address] Forms Request ([place]) Allergies Active Allergy Reactions Criticality Noted Date [...] on 09/30/2024 rOPINIRole HCl 3 MG Oral TabletIndications: Restless [...] bedtime. 30 Capsule 5 09/02/19 25 Active oxyCODONE-Acetamin ophen 5-325 MG Oral [...] FOR ONE DOSE 09/21/19 25 Active Nystatin PowderIndications: Yeast dermatitis Apply to rash [...] XL)Indications:Urg e incontinence of urine,Urinary urgency,Nocturia Take 2 Tablets by mouth in the morning. 60 Tablet 10/01/19 25 Active documented as of this encounter [...] to determine if the biopsy if sales representatives. B. Skin, left vulva, biopsy: [...] Telephone Encounter - Selin Brown LPN - 09/30/2024 2:13 PM EDT Form faxed successfully to Attn: Jeanne at the number provided. Form scanned in with fax confirmation page. My G sent. * Telephone Encounter - Selin Brown LPN - 09/30/2024 11:16 AM EDT Form completed, awaiting [facility] signature. * Telephone Encounter - Selin Brown LPN - 09/30/2024 9:00 AM EDT Patient's daughter dropped FMLA form. She is requesting "intermittent" and would like the original form back. She is requesting the form be faxed to Attshay Angel at [phone]. She is agreeable to picking up the form the next time she is in the clinic. Will place at the frontdesk when completed. Daughter verbalizes understanding. documented in this encounter Plan of Treatment Upcoming Encounters Date Type Department Care Team (Late st Contact Info) Description 10/01/2024 9:00 AM EDT Scheduled Telephone Palliative Medicine, [address] 5th Floor [place] [address] [place], Nurse Palliative Medicine [facility] [address] [place] [address] [place] [address] 10/06/2024 9:45 AM EDT Pharmacy Pharmacy Hematology Oncology [facility] [place] [address] [place] [address] [facility]Onc [address] [place] [address] 11/30/2024 9:00 AM EDT Office Visit Sleep Disorders Ctr [facility] [address] [place] [phone] Silvia Holt CRNP [address] [place] [address] 02/09/2025 9:00 AM EDT Office Visit Family Medicine [address] [address] Lashawn Mejia MD [address] [place] [address] [place] [address] 03/02/2025 10:40 AM EDT Telemedicine Neurology [facility] [place] [address] [place] [address] Clif Mckeon MD [address], [place] [id number] Scheduled Procedures Name Priority Associated Diagnoses Date/Ti [...] 023, 12/14/2020, 10/21/2007 CKD PHOS USE SMARTSET 23575 12/26/2023/07/2022, 01/16/2016, 02/16/2015, Additional history exists HbA1c 12/26/2023 12/25/2022, 0707/2021, 12/14/2020, Additional history exists Influenza Vaccine (FLU shot) (#1) 2024 05/14/2010 GFR 04/02/2025 09/30/2024, 09/04, 09/06/2024, Additional history exists TSH 08/30/2025 08/30/2024, 03/07, 02/06/2023, Additional history exists CKD HGB USE SMARTSET 51900 09/30/202509/30, 09/30/2024, 09/19/2024, Additional history exists Lipid [...] this encounter Medical Devices Implanted Type Area Process Worker Device Identifier Shelf Expiration Date Model / Serial / Lot Port Implant W8f Poly Cath - [id number] Implanted:Qty : 1 on 09/05/2023 by Orville Zendejas MD at OR [facility] Right: Chest CR BARD : PERIPHERAL VASCULAR [id number] 06/05/2024 [id number] / / [id number] documented as of this encounter Advance Directives * Full Code (Latest Code Status on File) Date Activated Date Inactivated Comments 02/19/2022 1:10 PM 02/19/2022 8:22 PM This order r eflects the patients wishes and were consensually agreed upon. Question Answer Comments Discussion of Advance Directives occurred with: Not Discussed Care Teams Pipe Foreman Relationship Specialty Start Date End Date Lashawn Mejia MD [address] [place] [address] [place] [address] PCP - General Family Medicine 09/22/20 documented as of this encounter
--- OUTSIDE RECORDS SUMMARY | 2024-10-01 13:37 | External Medical Summary | Summary of Care ---
Author Name Unknown Organization [facility] Address [address] [place] [address] Phone [phone] Care Team Providers Care Director Of Clinical Applications Name Role Phone Lashawn Mejia MD Primary Care Prov ider Reason for Visit * Reason Comments Follow Up Encounter Details Date Type Department Care Team (Late st Contact Info) Description 09/30/2024 9:00 AM EDT Office Visit Hematology/Oncology [facility] [address] [place] [address] Belinda Christianson CRNP [address] [place] [address] Endometrial cancer (HCC)*; Iron deficiency anemia due to chronic blood loss; TIMMY (acute kidney injury) (HCC) Allergies Active Allergy Reactions Criticality Noted [...] 11 09/03/19 25 025 Disconti nued(Ref ill) Nystatin 324039 UNIT/GM External CreamIndications: Yeast dermatitis Apply topically to affected area 2 times a day. To affacted area for two weeks. 30 g 2 09/28/19 25 025 Disconti nued(Pat ient torien ce/disco ntinuati on) documented as of this [...] to determine if the biopsy if labor service representative. B. 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 Not on file Not on file documented as of this encounter Last Filed Vital Signs Vital Sign Reading Time Taken Comments Blood Pressure 119/80 09/30/2024 8:49 AM EDT Pulse 88 09/30/2024 8:49 AM EDT Temperature 36.9 C (98.5 F) 09/30/2024 8 :49 AM EDT Respiratory Rate 20 09/30/2024 8:49 AM EDT Oxygen Saturation 88% 09/30/2024 8:4 9 AM EDT Range 88-91% RA, patient c/o SOB Inhaled Oxygen Concentration - - Weight - - Height - - Body Mass Index - - documented in this encounter Progress Notes * Belinda Christianson CRNP - 09/30/2024 8:55 AM EDT Hematology/Oncology Outpatient Clinic note Dines[facility] Quevedo [place] [address] [facility] [place] [address] Name: Lissette CARY Date: 09/30/2024 CHIEF COMPLAINT: Lissette CARY is a 59 year old female patient of Dr. Sams Steve here today for f/u visit today. From Patient chart confirmed with patient. HEMATOLOGY/ONCOLOGY DIAGNOSIS: Recurrent endometrial cancer Cancer Staging Endometrial cancer (HCC) Staging form: Corpus Uteri - Carcinoma And Carcinosarcoma, AJCC 8th Edition - Clinical stage from 02/19/2022: FIGO Stage IA (cT1a, cN0(sn), cM0) - Signed by Keegan Triplett MD on 02/22/2022 Treatment Summary Endometrial cancer (HCC) 12/28/2021 Initial [...] MD on 02/22/2022 07/03/2023 Procedure Colonoscopy at [facility] " Ulcerated mucosa with stigmata of recent bleeding were present in the sigmoid colon. Biopsies were taken with a cold forceps for histology" 07/03/2023 Biopsy MICROSLIDE CONSULT Outside slide review/ [facility]/ [id number]/ [id number] stained slides & Block A1 (1 [...] 5040 Gy external beam radiation therapy at [facility] [place] 125: 6.1 01/27/2024 - 03/10/2024 Chemotherapy 3 cycles single agent Carboplatin. Taxol was omitted per Hematology Oncology secondary to issues with neuropathy. [place] 125: 4.0 [place] 19-9: 1.6 08/30/2024 - Chemotherapy Lenvatinib 20 mg PO QD + Pembrolizumab 200 mg IV D1 q21 Days [id number] Procedure Result: Antibody Clone Block %Positive Tumor Cells / Intensity Interpretation PD-L1 (SP263) A1 <1% No PD-L1 expression (TPS<1%) 08/30/2024 - Supportive Therapy SCP - IRON SUCROSE (VENOFER) (1 Cycle/4 Weeks) [id number] Plan Provider: Flaquita Wilson MD Treatment goal: Supportive Line of treatment: [No plan line of treatment] ONCOLOGY HISTORY: Patient presented to [facility] 12/28/2021 with complaints of postmenopausal bleeding intermittently for 3months accompanied by pelvic pain. She saw her PCP with similar complaints at which time a TVUS wasordered showing a 4mm polyp and 12mm endometrial lining. 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 She can benefit with second-line treatment including combination of lenvatinib and pembrolizumab. Discussed with her about the benefit, side effects, toxicity and the risk of treatment. After detailed discussion she agreed to proceed with treatment signed the consent form. HISTORY OF PRESENT ILLNESS: Lissette CARY is a 59 year old female with a history as outlined above. Currently here for f/u visit today and consideration for C2D1 of Keytruda. Presents with her and daughter today. Per patient report was in ED in [place] last week for UTI and rash to abdominal skin folds. Rash is causing significant skin breakdown. Appears to be a mal infection. Completed oral antibiotic and antifungal a few days ago but has noted no improvement. Continues to have urinary and bowel incontinence. Spends almost all of her time in a chair. Cannot stand without assistance and can only walk about two steps before she has to sit down d/t severe weakness and SOB. Has gained 20 pounds in the lastmonth and abdomen is distended. Health and quality of life has significantly declined in the last few months. Is hoping to get more help in the home. Is unsure if she wants to continue treatment. Thus far is tolerating treatment well. Denies nausea. Denies mouth sores or pain. Past Medical History: Diagnosis Date Adult body mass index 50.0-59.9 ([facility]) 09/21/2010 DDD (degenerative disc disease), cervical 12/16/2014 mild DDD C5-6 and C6-7 Dyslipidemia, goal LDL below 100 09/21/2010 Female stress incontinence Iron deficiency anemia Obesity, morbid (more than 100 lbs over ideal weight or BMI > 40) ([facility]) 08/24/2015 Other organic sleep apnea PONV (postoperative nausea and vomiting) Prediabetes 01/20/2016 Pseudotumor cerebri 05/09/2000 Restless legs syndrome Urge incontinence of urine 12/05/2011 Vitamin B deficiency Vitamin D deficiency Past Surgical History: Procedure Laterality Date DELIVERY 1994 & 1991 COLONOSCOPY, DIAGNOSTIC (RECTUM) 03/20/1998 normal - Dr. Simons COLONOSCOPY, DIAGNOSTIC (RECTUM) N/A 07/03/2023 poor prep/hemorrhoids/diverticulosis/mucosal ulceration sigmoid/biopsies show metastatic carcinoma of endometrial origin/Colonoscopy/[place] COLONOSCOPY, DIAGNOSTIC (RECTUM) N/A 07/13/2024 diverticulosis/hemorrhoids/altered vascular, congested, inflamed and ulcerated mucosa/biopsies showtubular adenoma/COLONOSCOPY FLEXIBLE PROXIMAL DIAGNOSTIC performed by Fer Rogers MD at OR [facility] EGD, FLEXIBLE, DIAGNOSTIC 03/20/1998 normal EGD, FLEXIBLE, DIAGNOSTIC N/A 07/13/2024 biopsies normal/ESOPHAGOGASTRODUODENOSCOPY (EGD), FLEXIBLE, TRANSORAL, DIAGNOSTIC performed by Fer Rogers MD at OR [facility] INSER TUNN ACC DEV;5 YRS/OLDER Right 09/05/2023 INSERT TUNNELED CENTRAL VENOUS ACCESS WITH SUBQ PORT performed by Orville Zendejas MD at OR [facility] IR BIOPSY 08/06/2023 KNEE ARTHROSCOPY/DEBRIDEMENT 09/04/2009 right knee KNEE ARTHROSCOPY/SURGERY 08/18/1997 left knee - Dr. Pace LAPAROSCOPY TOTAL HYSTX, UTERUS 250GM OR LESS TUBE/OVARY N/A 02/19/2022 ROBOTIC LAPAROSCOPIC HYSTERECTOMY REMOVAL TUBES AND OVARIES FOR UTERUS 250GM OR LESS performed by Keegan Triplett MD at OR [facility] LIGATE/CUT OVIDUCT(S) MRI C SPINE WO CONTRAST 12/16/2014 degenerative disc C5-6 with mild foraminal narrowing, DDD C6-7 without copmpromise STRESS ECHO (EXERCISE) N/A 09/29/2020 no inducible ischemia. 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 (at least 30 min prior to breakfast or other meds) 90 Tablet 1 clonazePAM 0.5 MG Oral Tablet (KlonoPIN) Take 1-2 tablets per mouth at bedtime. 60 Tablet 2 Lisinopril 5 MG Oral Tablet (Prinivil) Take 1 Tablet by mouth in the morning. 90 Tablet 1 Lenvatinib (20 MG Daily Dose) 2 x 10 MG Oral Capsule Therapy Pack (Lenvima 20 MG Daily Dose) Take 20 mg by mouth in the morning. 60 Each 5 Nortriptyline HCl 50 MG Oral Capsule (Pamelor) Take 1 Capsule by mouth at bedtime. 30 Capsule 5 Ketoconazole 2 % External Shampoo (Nizoral) Apply topically to affected area every 3 days for 28 days. Shampoo twice a week 120 mL 1 fentaNYL 12 MCG/HR Transdermal Patch 72 Hour (Duragesic) Place 1 Patch over 72 hours topically on the skin every 3 days. 5 Patch 0 HYDROmorphone HCl 2 MG Oral Tablet (Dilaudid) Take 1 Tablet by mouth every 4 hours as needed for Pain, Severe. 60 Tablet 0 buPROPion HCl ER (XL) 150 MG Oral Tablet Extended Release 24 Hour (Wellbutrin XL) Take 1 Tablet by mouth in the morning. (Patient not taking: Reported on 09/30/2024) 30 Tablet 5 rOPINIRole HCl 3 MG Oral Tablet Take 1 Tablet by mouth in the morning and 1 Tablet at noon and 1 Tablet in the evening and 1 Tablet before bedtime. 120 Tablet 3 Ondansetron HCl 8 MG Oral Tablet (Zofran) [...] and feet twice daily 228 g 3 oxyBUTYnin Chloride ER 10 MG Oral Tablet Extended Release 24 Hour (Ditropan XL) Take 1 Tablet by mouth in the morning. 30 Tablet 11 oxyCODONE-Acetaminophen 5-325 MG Oral Tablet (Percocet) Take 1 Tablet by mouth every 4 hours as needed for Pain, Moderate. (Patient not taking: Reported on 09/30/2024) 60 Tablet 0 Cefpodoxime Proxetil 200 MG Oral Tablet TAKE ONE TABLET BY MOUTH EVERY TWELVE HOURS FOR SEVEN DAYS (Patient not taking: Reported on 09/30/2024) Clotrimazole 1 % External Cream (Lotrimin) APPLY TO THE AFFECTED AREA(S) TWICE DAILY (Patient not taking: Reported on 09/30/2024) Fluconazole 150 MG Oral Tablet (Diflucan) TAKE ONE TABLET BY MOUTH NOW FOR ONE DOSE (Patient not taking: Reported on 09/30/2024) Nystatin Powder Apply to rash under skin folds twice daily 1 Each 3 Polyethylene Glycol 3350 17 GM Oral Packet (Miralax) Take 1 Packet by mouth in the morning. 14 Each0 Senna 8.6 MG Oral Tablet Take 1 Tablet by mouth at bedtime. No current facility-administered medications for this visit. REVIEW OF SYSTEMS: See HPI - otherwise negative OBJECTIVE: Filed Vitals: 09/30/24 0849 BP: 119/80 Pulse: 88 Resp: 20 Temp: 36.9 C (98.5 F) TempSrc: Tympanic SpO2: 88% Wt Readings from Last 5 Encounters: 09/27/24 (!) 155.1 kg (342 lb) 08/30/24 (!) 147.4 kg (325 lb) 07/13/24 (!) 147.4 kg (325 lb) 02/17/24 (!) 142 kg (313 lb 0.9 oz) 12/30/23 (!) 142 kg (313 lb 1.6 oz) PHYSICAL EXAM: ECOG: Performance Status 2-3 General Appearance: No acute distress HEENT: Normal - No oral or pharyngeal masses, ulceration or thrush noted Lymph Nodes: Normal - No palpable lymph nodes in the neck or supraclavicular areas Lungs/Thorax: Clear and diminished to auscultation Heart: Normal - Regular rate and rhythm, normal S1, S2, no appreciable murmurs Extremities: +trace BLE edema Abdomen: Soft, significantly distended, nontender, bowel sounds present Neurologic: alert and oriented x 4, in wheelchair today Skin: patient declined exam LABS: Results for orders placed or performed in visit on 09/30/24 COMPREHENSIVE METABOLIC PANEL Result Value Ref Range BUN 27 (H) 6 - 20 mg/dL CREATININE 1.8 (H) 0.5 - 1.0 mg/dL EGFR 32 (L) >=60 mL/min SODIUM 136 135 - 146 mmol/L POTASSIUM 4.6 3.5 - 5.1 mmol/L CHLORIDE 100 98 - 107 mmol/L CO2 24 22 - 32 mmol/L ANION GAP 12 7 - 15 mmol/L GLUCOSE 107 70 - 120 mg/dL Albumin 3.6 (L) 3.8 - 5.0 g/dL AST 28 10 - 35 U/L Alkaline Phosphatase 126 35 - 130 U/L Bilirubin, Total 0.6 <=1.2 mg/dL CALCIUM 9.6 8.4 - 10.2 mg/dL Protein 7.4 6.0 - 8.3 g/dL ALT 28 10 - 35 U/L CBC Result Value Ref Range WBC 13.16 (H) 4.00 - 10.80 K/uL RBC 4.14 3.85 - 5.15 M/uL HGB 10.5 (L) 12.0 - 15.3 g/dL HCT 34.8 (L) 36.0 - 45.2 % MCV 84.1 81.5 - 97.5 fL MCH 25.4 27.0 - 34.0 pg MCHC 30.2 32.0 - 36.0 g/dL RDW 18.8 11.5 - 15.5 % PLT 312 140 - 400 K/uL MPV 8.8 6.6 - 11.1 fL DIFFERENTIAL, AUTOMATED Result Value Ref Range WBC 13.16 (H) 4.00 - 10.80 K/uL Neutrophils % 85.9 (H) 40.0 - 75.0 % Lymphocytes % 4.3 (L) 18.0 - 42.0 % Monocytes % 9.2 1.0 - 11.0 % Eosinophils % 0.4 0.0 - 6.0 % Basophils % 0.2 0.0 - 2.0 % Absolute Neutrophils 11.31 (H) 1.80 - 7.70 K/uL Absolute Lymphocytes 0.57 (L) 1.00 - 4.80 K/ul Absolute Monocytes 1.21 (H) 0.00 - 1.10 K/uL Absolute Eosinophils 0.05 0.00 - 0.70 K/uL Absolute Basophils 0.02 0.00 - 0.20 K/uL *Note: Due to a large number of results and/or encounters for the requested time period, some results have not been displayed. A complete set of results can be found in Results Review. IMPRESSION/PLAN: Recurrent endometrial cancer Iron and vitamin b12 deficiency anemia TIMMY She completed 3 cycles of chemotherapy including [...] mild left hydroureteronephrosis secondary to the mass. Consistent with disease progression. Has now initiated treatment with Lenvima and Keytruda. Presents today for consideration of C2D1 of Keytruda. Patients PS has significantly declined over the last few months. Cannot stand or ambulate a few steps without assistance. Is incontinent of both bowel and bladder. Incontinence has caused a severe mal infection and skin breakdown to abdominal skin folds. Has gained 20 pounds in the last month. Abdomen is severely distended and is causing her discomfort. Lab results reviewed: WBC count is elevated at 13.16 Hgb has improved at 10.5 - will receive last of 4 Venofer infusions today. Also has started oral vitamin b12 supplement as recommended. Renal function is worsening with creatinine of 1.8, EGFR 32 Ok for Keytruda today as scheduled Continue Lenvima 20 mg daily Will consider for restaging scans s/p C4 Now established with palliative care and [facility] Due to considerable decline in patient's overall clinical status in the last few months along with concern for development of ascites and decline in kidney function; patient's daughter planning on taking patient to [facility] ED after treatment today which I am in agreement with. Will send patient's records including CT scan from 08/13/24 as well as call report to [facility] ED. RTC pending MIKE Torres * Selin Brown LPN - 09/30/2024 8:47 AM EDT Patient identifed by name and birthdate Do you have any concerns about pain management for today's visit? No Living Will or Advance Directive for Health Care as noted on the problem list. [facility] is a way you can talk to your provider on line through e-mail. Would you like to sign up? I can activate it for you? ALREADY ACTIVE Patient O2 Saturation ranging between 88-91%, RA. Patient complaint of SOB, no s/s of respiratory distress noted at this time. Filed Vitals: 09/30/24 0849 BP: 119/80 Pulse: 88 Resp: 20 Temp: 36.9 C (98.5 F) TempSrc: Tympanic SpO2: 88% Patient was instructed to not get up [...] 9:00 AM EDT Scheduled Telephone Palliative Medicine, [address] 5th [place] [address] Wy, Nurse Palliative Medicine [address] [address] 10/06/2024 9:45 AM EDT Pharmacy Pharmacy Hematology Oncology [facility] [address] [place] [address] [facility] Hem/Onc [address] [place] [address] 10/21/2024 9:00 AM EDT Laboratory Laboratory [facility] Stark [address] [place] [address] [facility] [address] [place] [address] 10/21/2024 9:30 AM EDT Office Visit Hematology/Oncology [facility] [address] [facility] [place] [address] Lali Martinez CRNP [address] [facility] [place] [address] 10/21/2024 10:00 AM EDT Hem/Onc Treatment Hematology/Oncology Treatment, [place] 200 [place] [address] Rosario, Chair 5 Hem Onc [facility] [address] [facility] [place] [address] 11/30/2024 9:00 AM EDT [facility] [address] [place] [phone] Silvia Holt CRNP [address] [place] [address] 02/09/2025 9:00 AM EDT Office Visit Family Medicine [address] [address] Lashawn Mejia MD [address] [place] [address] 03/02/2025 10:40 AM EDT Telemedicine Neurology [address] [place] [address] Clif Mckeon MD [address] [facility] [place] [address] Scheduled Procedures Name Priority Associated Diagnoses Date/Ti [...] 023, 12/14/2020, 10/21/2007 CKD PHOS USE SMARTSET 39870 12/26/202312/06, 01/16/2016, 02/16/2015, Additional history exists HbA1c 12/26/2023 12/25/2022, 07/0 07/2021, 12/14/2020, Additional history exists Influenza Vaccine (FLU shot) (#1) 2024 05/14/2010 GFR 04/02/2025 09/30/2024, 09/04, 09/06/2024, Additional history exists CKD HGB USE SMARTSET 38074 09/30/202509/30, 09/30/2024, 09/19/2024, Additional history exists TSH 09/30/2025 09/30/2024, 08/08, 03/21/2023, Additional history exists Lipid Panel 01/04/2027 01/04/2022, [...] this encounter Medical Devices Implanted Type Area Incinerator Plant Laborer Device Identifier Shelf Expiration Date Model / Serial / Lot Port Implant W8f Poly Cath - [id number] Implanted:Qty : 1 on 09/05/2023 by Orville Zendejas MD at [facility] Right: Chest CR BARD : PERIPHERAL VASCULAR [id number] 06/05/2024 [id number] / / [id number] documented as of this encounter Visit Diagnoses Diagnosis Endometrial cancer (HCC)- Primary Malignant neoplasm of corpus uteri, except isthmus Iron deficiency anemia due to chronic blood loss Iron deficiency anemia secondary to blood loss (chronic) TIMMY (acute kidney injury) (HCC) Acute kidney failure, unspecified documented in this encounter Advance Directives * Full Code (Latest Code Status on File) Date Activated Date Inactivated Comments 02/19/2022 1:10 PM 02/19/2022 8:22 PM This order r eflects the patients wishes and were consensually agreed upon. Question Answer Comments Discussion of Advance Directives occurred with: Not Discussed Care Teams Director Of Clinical Applications Relationship Specialty Start Date End Date Lashawn Mejia MD [address] [place] [address] [place] [phone] PCP - General Family Medicine 09/22/20 documented as of this encounter
--- OUTSIDE RECORDS SUMMARY | 2024-10-01 13:37 | External Medical Summary | Summary of Care ---
Author Name Unknown Organization [facility] Address [address] [place] [address] Phone [phone] Care Team Providers Care Poultry Breeder Name Role Phone Lashawn Mejia MD Primary Care Prov ider Reason for Visit * Reason Onset Date Comments Forms Request 09/30/2024 FMLA Encounter Details Date Type Department Care Team (Late st Contact Info) Description 09/30/2024 Telephone Hematology/Oncology [facility] [address] [facility] [place] [address] Belinda Christianson CRNP [address] [place] [address] Forms Request ([facility]) Allergies Active Allergy Reactions Criticality Noted Date [...] to determine if the 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 B. 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 Form scanned in with fax confirmation page. My G sent. * Telephone Encounter - Selin Brown LPN - 09/30/2024 11:16 AM EDT Form completed, awaiting CHILDREN'S LIBRARIAN signature. * Telephone Encounter - Selin Brown LPN - 09/30/2024 9:00 AM EDT Patient's daughter dropped FMLA form. She is requesting "intermittent" and would like the original form back. She is requesting the form be faxed to Attshay Angel at [phone]. She is agreeable to picking up the form the next time she is in the clinic. Will place at the frontdesk when completed. Daughter verbalizes understanding. documented in this encounter Plan of Treatment Upcoming Encounters Date Type Department Care Team (Late st Contact Info) Description 10/01/2024 9:00 AM EDT Scheduled Telephone Palliative Medicine, [address] 5th Floor [place] [address] [address], Nurse Palliative Medicine [facility] [address] [place] [address] [place] [address] 10/06/2024 9:45 AM EDT Pharmacy Pharmacy Hematology Oncology [facility] [address] [place] [address] [facility], [facility] Hem/Onc [address] [place] [address] 10/21/2024 9:00 AM EDT Laboratory Laboratory [facility] [place] 200 [facility] [place] [address] Rosario Lab [facility] 200 [facility] [place] [address] 10/21/2024 9:30 AM EDT Office Visit Hematology/Oncology [facility] 200 [facility] [place] [address] Lali Martinez CRNP [address] [place], [place] [id number] 10/21/2024 10:00 AM EDT [facility] 200 [place] [address] Rosario, Chair 5 Hem On[address] [place] [address] 11/30/2024 9:00 AM EDT Office Visit Sleep Disorders Ctr [facility] [address] [place] [phone] Silvia Holt CRNP [address] [place] [address] 02/09/2025 9:00 AM EDT Office Visit Family Medicine [address] [place] [phone] Lasahwn Mejia MD [address] [place] [address] [place] [address] 03/02/2025 10:40 AM EDT Telemedicine Neurology [address] [place] [address] Clif Mckeon MD [address] [place] [address] Scheduled Procedures Name Priority [...] 023, 12/14/2020, 10/21/2007 CKD PHOS USE SMARTSET 88716 12/26/202312/06, 01/16/2016, 02/16/2015, Additional history exists HbA1c 12/26/2023 12/25/2022, 07/0 07/2021, 12/14/2020, Additional history exists Influenza Vaccine (FLU shot) (#1) 2024 05/14/2010 GFR 04/02/2025 09/30/2024, 09/04, 09/06/2024, Additional history exists CKD HGB USE SMARTSET 67983 09/30/202509/30, 09/30/2024, 09/19/2024, Additional history exists TSH [...] this encounter Medical Devices Implanted Type Area Junior Account Executive Device Identifier Shelf Expiration Date Model / Serial / Lot Port Implant W8f Poly Cath - [id number] Implanted:Qty : 1 on 09/05/2023 by Orville Zendejas MD at [facility] Right: Chest CR BARD : PERIPHERAL VASCULAR [id number] 06/05/2024 [id number] / / [id number] documented as of this encounter Advance Directives * Full Code (Latest Code Status on File) Date Activated Date Inactivated Comments 02/19/2022 1:10 PM 02/19/2022 8:22 PM This order r eflects the patients wishes and were consensually agreed upon. Question Answer Comments Discussion of Advance Directives occurred with: Not Discussed Care Teams Poultry Breeder Relationship Specialty Start Date End Date Lashawn Mejia MD [address] [place] [address] [place] [address] PCP - General Family Medicine 09/22/20 documented as of this encounter
--- OUTSIDE RECORDS SUMMARY | 2024-10-01 13:37 | External Medical Summary | Summary of Care ---
Author Name Unknown Organization [facility] Address [address] [place] [address] Phone [phone] Care Team Providers Care Multiple Cut Off Saw Operator Name Role Phone Lashawn Mejia MD Primary Care Prov ider Reason for Visit * Reason Onset Date Comments Forms Request 09/30/2024 FMLA Encounter Details Date Type Department Care Team (Late st Contact Info) Description 09/30/2024 Telephone Hematology/Oncology [facility] 200 [facility] [place] [address] Belinda Christianson CRNP [address] [place] [address] Forms Request ([facility]) Allergies Active Allergy Reactions Criticality Noted [...] required to determine if the biopsy if desk representative. B. 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 * Telephone Encounter - Selin Brown LPN - 09/30/2024 9:00 AM EDT Patient's daughter dropped FMLA form. She is requesting "intermittent" and would like the original form back. She is requesting the form be faxed to Attshay Angel at [phone]. She is agreeable to picking up the form the next time she is in the clinic. Will place at the frontdesk when completed. Daughter verbalizes understanding. documented in this encounter Plan of Treatment Upcoming Encounters Date Type Department Care Team (Late st Contact Info) Description 10/01/2024 9:00 AM EDT Scheduled Telephone Palliative Medicine, [address] 5th Floor [place] [address] [place], Nurse Palliative Medicine [facility] [address] [place] [address] [place] [address] 10/06/2024 9:45 AM EDT Pharmacy Pharmacy Hematology Oncology [facility] [address] [place] [address] [facility], [facility] Clinic Hem/Onc [address] [place] [address] 10/21/2024 9:00 AM EDT Laboratory Laboratory [facility] [place] 200 [facility] [place] [address] Rosario Lab [facility] 200 [facility] [place] [address] 10/21/2024 9:30 AM EDT Office Visit Hematology/Oncology [facility] 200 [facility] [place] [address] Lali Martinez CRNP [address] [place], [place] [phone] 10/21/2024 10:00 AM EDT Hem[facility] 200 [place] [address] Rosario, Chair 5 Hem On[address] [place] [address] 11/30/2024 9:00 AM EDT Office Visit Sleep Disorders Ctr [facility] [address] [place] [phone] Silvia Holt CRNP [address] [place] [address] 02/09/2025 9:00 AM EDT Office Visit Family Medicine [address] [place] [phone] Lashawn Mejia MD [address] [place] [address] [place] [address] 03/02/2025 10:40 AM EDT Telemedicine Neurology Titi [...] 023, 12/14/2020, 10/21/2007 CKD PHOS USE SMARTSET 34497 12/26/202312/06, 01/16/2016, 02/16/2015, Additional history exists HbA1c 12/26/2023 12/25/2022, 07/0 07/2021, 12/14/2020, Additional history exists Influenza Vaccine (FLU shot) (#1) 2024 05/14/2010 GFR 04/02/2025 09/30/2024, 09/04, 09/06/2024, Additional history exists CKD HGB USE SMARTSET 74882 09/30/202509/30, 09/30/2024, 09/19/2024, Additional history exists TSH [...] this encounter Medical Devices Implanted Type Area Safety And Security Manager Device Identifier Shelf Expiration Date Model / Serial / Lot Port Implant W8f Poly Cath - [id number] Implanted:Qty : 1 on 09/05/2023 by Orville Zendejas MD at [facility] Right: Chest CR BARD : PERIPHERAL VASCULAR [id number] 06/05/2024 [id number] / / [id number] documented as of this encounter Advance Directives * Full Code (Latest Code Status on File) Date Activated Date Inactivated Comments 02/19/2022 1:10 PM 02/19/2022 8:22 PM This order r eflects the patients wishes and were consensually agreed upon. Question Answer Comments Discussion of Advance Directives occurred with: Not Discussed Care Teams Multiple Cut Off Saw Operator Relationship Specialty Start Date End Date Lashawn Mejia MD [address] [place] [address] [place] [address] PCP - General Family Medicine 09/22/20 documented as of this encounter
--- OUTSIDE RECORDS SUMMARY | 2024-10-01 13:37 | External Medical Summary | Summary of Care ---
Author Name Unknown Organization [facility] Address [address] [place] [address] Phone [phone] Care Team Providers Care Electromyographic Technician Name Role Phone Lashawn Mejia MD Primary Care Prov ider Encounter Details Date Type Department Care Team (Late st Contact Info) Description 09/30/2024 Telephone Urogynecology [facility] [address] [place] [address] Shanti Cummings PA-C [address] [place] [address] Allergies Active Allergy Reactions Criticality Noted Date [...] XL)Indications:Ur ge incontinence of urine,Urinary urgency,Nocturia Take 2 Tablets by mouth in the morning. 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 Continues to experience urinary urgency, frequency and urge incontinence. Mild dry mouth with oxybutynin. Reviewed medication options. She would like to try increasing dose. Discussed increase oxybutynin ER to 20mg daily. Patient to call to schedule office appointment in 6-8 weeks for f/u. Discussed coming with full bladder to assess for REMIGIO and can review options at that time. Discussed if urgency/frequency/urge incontinence not improved, can consider combination therapy of oxybutynin with beta-3 agonist. All questions answered at this time. documented in this encounter Plan of Treatment Upcoming Encounters Date Type Department Care Team (Late st Contact Info) Description 10/01/2024 9:00 AM EDT Scheduled Telephone Palliative Medicine, [facility] 400 [facility] 5th Floor [place] [address] [place], Nurse Palliative Medicine [address] [address] 10/06/2024 9:45 AM EDT Pharmacy Pharmacy Hematology Oncology [facility] [place] [address] [place] [facility] [place] [address] [facility], [facility] Hem/Onc [address] [facility] [place] [address] 11/30/2024 9:00 AM EDT Office Visit Sleep Disorders Ctr [facility] 132 [facility] [place] [address] Silvia Holt CRNP [address] [place] [address] 02/09/2025 9:00 AM EDT Office Visit Family Medicine [address] [place] [phone] Lashawn Mejia MD [address] [place] [address] [place] [address] 03/02/2025 10:40 AM EDT Telemedicine Neurology [address] [place] [address] Clif Mckeon MD 100 [address] [facility] [place] [address] Scheduled Procedures [...] 023, 12/14/2020, 10/21/2007 CKD PHOS USE SMARTSET 98320 12/26/2023 0607/2022, 01/16/2016, 02/16/2015, Additional history exists HbA1c 12/26/2023 12/25/2022, 07/07/2021, 12/14/2020, Additional history exists Influenza Vaccine (FLU shot) (#1) 2024 05/14/2010 GFR 04/02/2025 09/30/2024, 09/04, 09/06/2024, Additional history exists TSH 08/30/2025 08/30/2024, 03/07, 02/06/2023, Additional history exists CKD HGB USE SMARTSET 35756 09/30/202509/30, 09/30/2024, 09/19/2024, Additional history exists Lipid [...] this encounter Medical Devices Implanted Type Area Tongue And Groove Machine Operator Device Identifier Shelf Expiration Date Model / Serial / Lot Port Implant W8f Poly Cath - [id number] Implanted:Qty : 1 on 09/05/2023 by Orville Zendejas MD at [facility] Right: Chest CR BARD : PERIPHERAL VASCULAR [id number] 06/05/2024 [id number] / / [id number] documented as of this encounter Visit Diagnoses Diagnosis Urge incontinence of urine Urge incontinence Urinary urgency Urgency of urination Nocturia documented in this encounter Advance Directives * Full Code (Latest Code Status on File) Date Activated Date Inactivated Comments 02/19/2022 1:10 PM 02/19/2022 8:22 PM This order r eflects the patients wishes and were consensually agreed upon. Question Answer Comments Discussion of Advance Directives occurred with: Not Discussed Care Teams Electromyographic Technician Relationship Specialty Start Date End Date Lashawn Mejia MD [address] [place] [address] [place] [phone] PCP - General Family Medicine 09/22/20 documented as of this encounter
--- OUTSIDE RECORDS SUMMARY | 2024-10-01 13:38 | External Medical Summary ---
Author Name Unknown Address Unknown Organization K01:[facility] - [address] [place] [address] Laboratory Report Ordering Provider Test Date Status BROCK BURNHAM 09/30/2024 08:20:22 Final Priot to treatment then [facility] Observation Date Value Abnormality Reference (Units ) Status TSH 09/30/2024 08:20:22 3.35 0.27-4.20 (uIU/mL) Final Performing Location [facility] - [address] [place] [address]
--- NOTE | 2024-10-01 14:02 | Hospitalist Progress Note ---
Date of Service October 01, 2024 Assessment & Plan (1) Hydroureteronephrosis: (2) Ambulatory dysfunction: (3) Abnormal CT of the abdomen: (4) Recurrent carcinoma of endometrium: (5) Visual hallucinations: (6) Acute kidney injury superimposed on stage 3a chronic kidney disease: Plan: Lissette valentino 59y/o F with PMHx significant for hypothyroidism, HLD, HTN, prediabetes, CHON with intolerance to CPAP, vitamin B deficiency, vitamin D deficiency, severe obesity, recurrent endometrial cancer, iron deficiency anemia, CKD stage IIIa, urge incontinence of urine, restless leg syndrome, cervical DDD, pseudotumor cerebri syndrome, depression, anxiety and persistent insomnia who presented to the ED via referral by her outpatient oncologist for evaluation multiple complaints including increased generalized weakness, decrease in overall mobility, SOB, weight gain and worsening candidal intertrigo beneath her abdominal folds. Known recurrent endometrial cancer. Follows with Dr. Wilson of [facility] Hematology/Oncology. First diagnosed in December 2021 and she underwent robotic assisted total laparoscopic hysterectomy with bilateral salpingo-oophorectomy and bilateral sentinel pelvic lymph node dissection with pathology consistent with endometrioid adenocarcinoma. Postoperatively patient required no further treatment up until she experienced an episode of rectal bleeding and had a colonoscopy done in June 2023 which revealed ulcerated mucosa with stigmata of recent bleeding present in the sigmoid colon. Biopsy was positive for atypical glands most consistent with metastatic carcinoma of endometrial origin. Patient underwent radiation and round of chemotherapy. However, CT chest and CT abdomen pelvis showed possible recurrent endometrial cancer. CT abdomen pelvis done here shows moderate right-sided hydro nephrosis as well as hyperdense focus within dependent urinary bladder. Urinalysis is suggestive of infection. Urine culture growing Enterococcus faecalis MRI brain showing 2 tiny focus of acute ischemia within the left cerebellum and left frontal lobe. 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 Patient has been going through rounds of treatments since last 3 years; her quality of life has gradually declined. We discussed possibility of hospice care after the hospitalization at home which she is agreeable with. She is agreeable with trying ureteral stent placement if possible; does not want nephrostomy tube. Continue antibiotics; follow-up on final culture Plan for hospice referral; possibly discharge on Friday (7) Colovaginal fistula: Plan: Noted on above imaging. Will need outpatient follow-up regarding this. Could possibly be contributing to contamination on UA and subsequent urine culture results. (8) Candidal intertrigo: Plan: Worsening candidal intertrigo beneath her abdominal folds/pannus Nystatin powder 4X daily Given fluconazole Also Ramirez catheter ordered (9) Fecal incontinence: Plan: Lumbar spine CT with no evidence of fracture. Noted lower lumbar degenerative changes however no evidence of severe central canal or neuroforaminal narrowing to explain etiology of fecal incontinence. Denies any saddle anesthesia. 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 Other Chronic Medical Conditions: Hypothyroidism - TSH WNL. Continue levothyroxine. RLS - Continue ropinirole. LEFTY/Depression - Continue Klonopin HS to alleviate anxiety. Can also continue nortriptyline. HTN - Continue lisinopril with routine BP monitoring. DVT Prophylaxis: SCDs/TEDs for now in anticipation for possible urological procedure as per above. Code Status: FULL CODE PCP: Lashawn Becker MD Disposition:Possible DC to hospice on Friday Time spent evaluating patient, direct bedside care, chart review, placing orders, interpretation of diagnostic studies, discussion with consultants, patient, and family members, as well as other required patient management activities is 50 minutes Please note the above document was generated using voice recognition software. It may contain grammatical, syntax or spelling errors. Any formal questions or concerns about the content, text or information contained within the body of this dictation should be directly addressed to the provider for clarification Admission and Anticipated Discharge Date Admission Date: September 30, 2024 Subjective Patient seen and examined at bedside. Her family is also at bedside. She is comfortable; denies any pain and discomfort at this time. Review of Systems Review of Systems: All systems reviewed & are unremarkable except as noted in Subjective Physical Exam Physical Exam: Constitutional: Awake alert oriented x 3. Chest; Port-A-Cath in place Respiratory: normal respiratory effort, lungs clear to auscultation, no wheeze, rales, rhonchi. Normal insp/exp effort, no accessory muscle use Cardiovascular: RRR, no murmur, no edema Vessels: no JVD or carotid bruit Chest: normal inspection of chest Abdomen: normal bowel sounds, soft, nontender, no hepatosplenomegaly Musculoskeletal: no cyanosis or clubbing, extremities motor strength 5/5 Skin: Abdomen folds with erythema, redness. Neurologic: PERRL, EOMI, accommodation nl, no face palsy, no dysarthria CN's II- XI intact bilaterally and moves all extremities Psychiatric: A+Ox3, euthymic affect Results & Data Results & Data Vital Signs (Past 12 Hours) Vital Signs Temp Pulse Pulse Resp BP BP Pulse Ox 10/01/24 13:01 36.8 C 76 136/91 76 L 10/01/24 11:40 36.6 C 71 16 138/81 91 10/01/24 08:14 36.7 C 73 20 135/77 91 10/01/24 05:36 74 10/01/24 03:50 36.6 C 75 18 134/78 90 O2 Del Method 10/01/24 13:01 Room Air 10/01/24 11:40 Room Air 10/01/24 08:14 Room Air 10/01/24 05:36 10/01/24 03:50 Room Air (9) Fecal incontinence Fecal incontinence type: unspecified Qualified Code(s): R15.9 - Full incontinence of feces
--- NOTE | 2024-10-01 14:04 | Electrocardiogram Report ---
Test Reason : Blood Pressure : */* mmHG Vent. Rate : 75 BPM Atrial Rate : 75 BPM P-R Int : 168 ms QRS Dur : 68 ms QT Int : 396 ms P-R-T Axes : 38 38 43 degrees QTcB Int : 442 ms Normal sinus rhythm Low voltage QRS Possible Anterolateral infarct , age undetermined Abnormal ECG No previous ECGs available Confirmed by Naveed Cameron ([id number]) on 10/01/2024 2:04:40 PM Referred By: Confirmed By: Naveed Cameron
--- NOTE | 2024-10-01 14:14 | Operative Report ---
PG Post Operative Report Pre & Post Diagnosis Right hydronephrosis Operation Date: 10/01/24 09:40 <No data on this case meets the specified criteria> Right hydronephrosis I identified the patient and participated in the time-out.: Yes Procedure Cystoscopy Operation Date: 10/01/24 09:40 <No data on this case meets the specified criteria> Surgeon Keegan Chun MD Biology Manager None Estimated Blood Loss 2 Findings See Below Suspected invasion of endometrial cancer into the bladder trigone. Large friable tissue throughout the entire trigone obscuring both ureteral orifice ease. Spent significant time trying to probe the right ureteral orifice but unsuccessful. Tissue verified friable which bled which made visualization even more difficult. Specimens None Drains 16 Greenlandic Armirez catheter Anesthesia Type MAC Complications none Indications 59-year-old female with a history of recurrent endometrial cancer who now has right hydronephrosis and a soft tissue mass in the bladder. Discussed risk of not being able to place a stent and needing required transfer for nephrostomy tube and patient expressed understanding. Description of Procedure After informed consent was obtained, the patient was transported to the operative suite. General anesthesia was induced. They were placed in dorsal lithotomy position and prepped and draped in sterile fashion. They received preoperative Zosyn. An appropriate surgical timeout was performed. 21 Greenlandic rigid cystoscope inserted per urethra into the bladder. The entire trigone had been overtaken by what I suspect is metastatic disease. This area was friable and bled very easily. I was unable to visualize either ureteral orifice. I gently probed in the anatomic area of the right ureteral orifice for 10 to 15 minutes with a sensor wire but was unsuccessful. Visualization became even more poor due to friable tissue. Ultimately elected to abort procedure and recommend transfer for nephrostomy tube. Bladder was emptied and scope was removed. This concluded the end of the case. All counts correct at the end of the case. I was present scrubbed and actively participated for the entirety of the procedure I attest to the content of the Intraoperative Record and any orders documented therein. Any exceptions are noted below.
--- NOTE | 2024-10-01 14:29 | Fluoroscopy Report ---
FL KUB CLINICAL HISTORY: CYSTO COMPARISON STUDY: None FLUOROSCOPY TIME: 9 seconds FLUOROSCOPY IMAGES: 1 EXPOSURE DOSE: 7.1 mGy FINDINGS: Fluoroscopy was provided for urologic procedure. IMPRESSION: Intraoperative fluoroscopy. ACT 112: Negative or not required by law. Electronically signed by: Kirby Avila M.D. 10/01/2024 2:28 PM
--- NOTE | 2024-10-01 14:59 | Anesthesiology Progress Note ---
Date of Service October 01, 2024 Anesthesia Post Procedure Vital Signs Vital Signs: Temp Pulse Pulse Pulse Resp BP BP 10/01/24 14:50 94 H 22 10/01/24 14:40 71 20 10/01/24 14:30 37.1 C 75 14 10/01/24 13:01 36.8 C 76 10/01/24 11:40 36.6 C 71 16 138/81 10/01/24 08:14 36.7 C 73 20 135/77 10/01/24 05:36 74 10/01/24 03:50 36.6 C 75 18 134/78 10/01/24 00:00 72 09/30/24 21:04 73 09/30/24 20:40 73 09/30/24 20:40 09/30/24 20:40 36.6 C 76 14 124/76 09/30/24 19:33 75 21 151/84 H 09/30/24 19:30 151/84 H 09/30/24 19:30 151/84 H 09/30/24 19:30 151/84 H 09/30/24 19:30 151/84 H 09/30/24 19:30 151/84 H 09/30/24 19:30 151/84 H 09/30/24 19:30 151/84 H 09/30/24 19:30 151/84 H 09/30/24 19:30 151/84 H 09/30/24 19:30 151/84 H 09/30/24 19:30 151/84 H 09/30/24 19:30 151/84 H 09/30/24 19:30 151/84 H 09/30/24 19:21 74 26 H 09/30/24 19:09 74 23 09/30/24 19:00 152/82 H 09/30/24 19:00 152/82 H 09/30/24 19:00 152/82 H 09/30/24 19:00 152/82 H 09/30/24 19:00 152/82 H 09/30/24 19:00 152/82 H 09/30/24 19:00 152/82 H 09/30/24 19:00 152/82 H 09/30/24 19:00 152/82 H 09/30/24 19:00 152/82 H 09/30/24 19:00 152/82 H 09/30/24 19:00 152/82 H 09/30/24 18:42 64 21 09/30/24 18:39 98 H 25 H 09/30/24 18:30 157/86 H 09/30/24 18:30 157/86 H 09/30/24 18:30 157/86 H 09/30/24 18:30 157/86 H 09/30/24 18:30 157/86 H 09/30/24 18:30 157/86 H 09/30/24 18:30 157/86 H 09/30/24 18:30 157/86 H 09/30/24 18:30 157/86 H 09/30/24 18:30 157/86 H 09/30/24 18:00 139/77 09/30/24 18:00 139/77 09/30/24 18:00 139/77 09/30/24 18:00 139/77 09/30/24 18:00 139/77 09/30/24 18:00 139/77 09/30/24 18:00 139/77 09/30/24 18:00 81 17 09/30/24 17:36 65 26 H 09/30/24 17:03 72 27 H 09/30/24 17:00 148/92 H 09/30/24 17:00 148/92 H 09/30/24 17:00 148/92 H 09/30/24 16:57 75 28 H 09/30/24 16:33 57 L 24 09/30/24 16:24 67 16 129/80 09/30/24 16:03 55 L 24 09/30/24 16:00 137/81 09/30/24 16:00 137/81 09/30/24 16:00 137/81 09/30/24 16:00 137/81 09/30/24 16:00 137/81 09/30/24 16:00 137/81 09/30/24 15:48 66 19 09/30/24 15:36 120/85 09/30/24 15:36 120/85 09/30/24 15:36 120/85 09/30/24 15:36 120/85 09/30/24 15:36 120/85 09/30/24 15:36 69 23 09/30/24 15:36 120/85 09/30/24 15:36 120/85 09/30/24 15:33 65 22 09/30/24 15:05 09/30/24 15:00 92 H 24 BP Pulse Ox O2 Del Method O2 Flow Rate 10/01/24 14:50 141/85 H 93 Room Air 10/01/24 14:40 138/91 95 Oxymask 4 10/01/24 14:30 137/82 96 Oxymask 6 10/01/24 13:01 136/91 76 L Room Air 10/01/24 11:40 91 Room Air 10/01/24 08:14 91 Room Air 10/01/24 05:36 10/01/24 03:50 90 Room Air 10/01/24 00:00 09/30/24 21:04 09/30/24 20:40 09/30/24 20:40 Room Air 09/30/24 20:40 92 Room Air 09/30/24 19:33 09/30/24 19:30 09/30/24 19:30 09/30/24 19:30 09/30/24 19:30 09/30/24 19:30 09/30/24 19:30 09/30/24 19:30 09/30/24 19:30 09/30/24 19:30 09/30/24 19:30 09/30/24 19:30 09/30/24 19:30 09/30/24 19:30 09/30/24 19:21 09/30/24 19:09 90 09/30/24 19:00 09/30/24 19:00 09/30/24 19:00 09/30/24 19:00 09/30/24 19:00 09/30/24 19:00 09/30/24 19:00 09/30/24 19:00 09/30/24 19:00 09/30/24 19:00 09/30/24 19:00 09/30/24 19:00 09/30/24 18:42 92 09/30/24 18:39 90 09/30/24 18:30 09/30/24 18:30 09/30/24 18:30 09/30/24 18:30 09/30/24 18:30 09/30/24 18:30 09/30/24 18:30 09/30/24 18:30 09/30/24 18:30 09/30/24 18:30 09/30/24 18:00 09/30/24 18:00 09/30/24 18:00 09/30/24 18:00 09/30/24 18:00 09/30/24 18:00 09/30/24 18:00 09/30/24 18:00 89 L 09/30/24 17:36 90 09/30/24 17:03 90 09/30/24 17:00 09/30/24 17:00 09/30/24 17:00 09/30/24 16:57 91 09/30/24 16:33 91 09/30/24 16:24 91 09/30/24 16:03 91 09/30/24 16:00 09/30/24 16:00 09/30/24 16:00 09/30/24 16:00 09/30/24 16:00 09/30/24 16:00 09/30/24 15:48 95 09/30/24 15:36 09/30/24 15:36 09/30/24 15:36 09/30/24 15:36 09/30/24 15:36 09/30/24 15:36 91 09/30/24 15:36 09/30/24 15:36 09/30/24 15:33 90 09/30/24 15:05 Room Air 09/30/24 15:00 91 Pain Intensity Medial Groin: Pain Intensity: 7 Transfer of Care Handoff Completed per policy Notes Mental Status: alert / awake / arousable and participated in evaluation Patient Amnestic to Procedure: Yes Nausea / Vomiting: adequately controlled Pain: adequately controlled Airway Patency, RR, SpO2: stable & adequate BP & HR: stable & adequate Hydration State: stable & adequate Anesthetic Complications: no major complications apparent
[2024-10-01] MEDS: FLUCONAZOLE 50 MG TAB PO ONE (15:33)
[2024-10-01] MEDS: ALPRAZolam 0.5 MG TABLET PO PRN (16:56)
[2024-10-01] MEDS: rOPINIRole HCL 1 MG TABLET PO STA (18:34)
--- NOTE | 2024-10-02 09:41 | Hospitalist Progress Note ---
Date of Service October 02, 2024 Assessment & Plan (1) Hydroureteronephrosis: (2) Ambulatory dysfunction: (3) Abnormal CT of the abdomen: (4) Recurrent carcinoma of endometrium: (5) Visual hallucinations: (6) Acute kidney injury superimposed on stage 3a chronic kidney disease: Plan: Lissette valentino 59y/o F with PMHx significant for hypothyroidism, HLD, HTN, prediabetes, CHON with intolerance to CPAP, vitamin B deficiency, vitamin D deficiency, severe obesity, recurrent endometrial cancer, iron deficiency anemia, CKD stage IIIa, urge incontinence of urine, restless leg syndrome, cervical DDD, pseudotumor cerebri syndrome, depression, anxiety and persistent insomnia who presented to the ED via referral by her outpatient oncologist for evaluation multiple complaints including increased generalized weakness, decrease in overall mobility, SOB, weight gain and worsening candidal intertrigo beneath her abdominal folds. Known recurrent endometrial cancer. Follows with Dr. Wilson of [facility] Hematology/Oncology. First diagnosed in December 2021 and she underwent robotic assisted total laparoscopic hysterectomy with bilateral salpingo-oophorectomy and bilateral sentinel pelvic lymph node dissection with pathology consistent with endometrioid adenocarcinoma. Postoperatively patient required no further treatment up until she experienced an episode of rectal bleeding and had a colonoscopy done in June 2023 which revealed ulcerated mucosa with stigmata of recent bleeding present in the sigmoid colon. Biopsy was positive for atypical glands most consistent with metastatic carcinoma of endometrial origin. Patient underwent radiation and round of chemotherapy. However, CT chest and CT abdomen pelvis showed possible recurrent endometrial cancer. CT abdomen pelvis done here shows moderate right-sided hydro nephrosis as well as hyperdense focus within dependent urinary bladder. Urinalysis is suggestive of infection. Urine culture growing Enterococcus faecalis MRI brain showing 2 tiny focus of acute ischemia within the left cerebellum and left frontal lobe. 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 Patient has been going through rounds of treatments since last 3 years; her quality of life has gradually declined. We discussed possibility of hospice care after the hospitalization at home which she is agreeable with. She is agreeable with trying ureteral stent placement if possible; does not want nephrostomy tube. Cystoscopy showed suspected invasion of endometrial cancer into the bladder trigone; patient did not want additional intervention. CODE STATUS changed to DNR/DNI. Plan to arrange for home hospice in next few days. (7) Candidal intertrigo: Plan: Worsening candidal intertrigo beneath her abdominal folds/pannus Nystatin powder 4X daily Given fluconazole (8) Fecal incontinence: Plan: Lumbar spine CT with no evidence of fracture. Noted lower lumbar degenerative changes however no evidence of severe central canal or neuroforaminal narrowing to explain etiology of fecal incontinence. Denies any saddle anesthesia. 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 Other Chronic Medical Conditions: Hypothyroidism - TSH WNL. Continue levothyroxine. RLS - Continue ropinirole. LEFTY/Depression - Continue Klonopin HS to alleviate anxiety. Can also continue nortriptyline. HTN - Continue lisinopril with routine BP monitoring. DVT Prophylaxis: SCDs/TEDs Code Status: DNR/DNI PCP: Lashawn Becker MD Disposition:Possible DC to hospice on Friday Please note the above document was generated using voice recognition software. It may contain grammatical, syntax or spelling errors. Any formal questions or concerns about the content, text or information contained within the body of this dictation should be directly addressed to the provider for clarification Admission and Anticipated Discharge Date Admission Date: September 30, 2024 Subjective Patient seen and examined at bedside. Comfortable; not in distress. Denies fever, chills, chest pain, shortness of breath, abdominal pain or urinary symptoms. No significant overnight events Review of Systems Review of Systems: All systems reviewed & are unremarkable except as noted in Subjective Physical Exam Physical Exam: Constitutional: Awake alert oriented x 3. Chest; Port-A-Cath in place Respiratory: normal respiratory effort, lungs clear to auscultation, no wheeze, rales, rhonchi. Normal insp/exp effort, no accessory muscle use Cardiovascular: RRR, no murmur, no edema Vessels: no JVD or carotid bruit Chest: normal inspection of chest Abdomen: normal bowel sounds, soft, nontender, no hepatosplenomegaly Musculoskeletal: no cyanosis or clubbing, extremities motor strength 5/5 Skin: Abdomen folds with erythema, redness. Neurologic: PERRL, EOMI, accommodation nl, no face palsy, no dysarthria CN's II- XI intact bilaterally and moves all extremities Psychiatric: A+Ox3, euthymic affect Results & Data Results & Data Vital Signs (Past 12 Hours) Vital Signs Temp Pulse Pulse Resp BP BP Pulse Ox 10/02/24 08:09 36.6 C 68 20 150/89 H 96 10/02/24 07:38 10/02/24 02:46 36.5 C 71 18 160/90 H 94 10/01/24 23:31 36.7 C 68 18 118/78 95 O2 Del Method O2 Flow Rate 10/02/24 08:09 Room Air 10/02/24 07:38 Nasal Cannula 2 10/02/24 02:46 Nasal Cannula 2 10/01/24 23:31 Nasal Cannula 2 (8) Fecal incontinence Fecal incontinence type: unspecified Qualified Code(s): R15.9 - Full incontinence of feces
[2024-10-02] MEDS: AMOXICILLIN/CLAVULANATE 875 MG TAB PO SCH (17:11)
[2024-10-02] MEDS: ONDANSETRON INJ 2 MG/ML 2 ML VIAL IV PRN (17:46)
--- NOTE | 2024-10-03 14:24 | Hospitalist Progress Note ---
Date of Service October 03, 2024 Assessment & Plan (1) Hydroureteronephrosis: (2) Ambulatory dysfunction: (3) Abnormal CT of the abdomen: (4) Recurrent carcinoma of endometrium: (5) Visual hallucinations: (6) Acute kidney injury superimposed on stage 3a chronic kidney disease: Plan: Lissette valentino 59y/o F with PMHx significant for hypothyroidism, HLD, HTN, prediabetes, CHON with intolerance to CPAP, vitamin B deficiency, vitamin D deficiency, severe obesity, recurrent endometrial cancer, iron deficiency anemia, CKD stage IIIa, urge incontinence of urine, restless leg syndrome, cervical DDD, pseudotumor cerebri syndrome, depression, anxiety and persistent insomnia who presented to the ED via referral by her outpatient oncologist for evaluation multiple complaints including increased generalized weakness, decrease in overall mobility, SOB, weight gain and worsening candidal intertrigo beneath her abdominal folds. Known recurrent endometrial cancer. Follows with Dr. Wilson of [facility] Hematology/Oncology. First diagnosed in December 2021 and she underwent robotic assisted total laparoscopic hysterectomy with bilateral salpingo-oophorectomy and bilateral sentinel pelvic lymph node dissection with pathology consistent with endometrioid adenocarcinoma. Postoperatively patient required no further treatment up until she experienced an episode of rectal bleeding and had a colonoscopy done in June 2023 which revealed ulcerated mucosa with stigmata of recent bleeding present in the sigmoid colon. Biopsy was positive for atypical glands most consistent with metastatic carcinoma of endometrial origin. Patient underwent radiation and round of chemotherapy. However, CT chest and CT abdomen pelvis showed possible recurrent endometrial cancer. CT abdomen pelvis done here shows moderate right-sided hydro nephrosis as well as hyperdense focus within dependent urinary bladder. Urinalysis is suggestive of infection. Urine culture growing Enterococcus faecalis MRI brain showing 2 tiny focus of acute ischemia within the left cerebellum and left frontal lobe. 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 Patient has been going through rounds of treatments since last 3 years; her quality of life has gradually declined. We discussed possibility of hospice care after the hospitalization at home which she is agreeable with. She is agreeable with trying ureteral stent placement if possible; does not want nephrostomy tube. Cystoscopy showed suspected invasion of endometrial cancer into the bladder trigone; patient did not want additional intervention. CODE STATUS changed to DNR/DNI. Plan to arrange for home hospice in next few days. Continue comfort measures; Started on scheduled Ativan Continue dexamethasone Increase Dilaudid for comfort. (7) Candidal intertrigo: Plan: Worsening candidal intertrigo beneath her abdominal folds/pannus Nystatin powder 4X daily Given fluconazole (8) Fecal incontinence: Plan: Lumbar spine CT with no evidence of fracture. Noted lower lumbar degenerative changes however no evidence of severe central canal or neuroforaminal narrowing to explain etiology of fecal incontinence. Denies any saddle anesthesia. 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 Other Chronic Medical Conditions: Hypothyroidism - TSH WNL. Continue levothyroxine. RLS - Continue ropinirole. LEFTY/Depression - Continue Klonopin HS to alleviate anxiety. Can also continue nortriptyline. HTN - Continue lisinopril with routine BP monitoring. DVT Prophylaxis: SCDs/TEDs Code Status: DNR/DNI PCP: Lashawn Becker MD Disposition:Possible DC to hospice on Friday Please note the above document was generated using voice recognition software. It may contain grammatical, syntax or spelling errors. Any formal questions or concerns about the content, text or information contained within the body of this dictation should be directly addressed to the provider for clarification Admission and Anticipated Discharge Date Admission Date: September 30, 2024 Subjective Patient seen at bedside. She has twitching of her extremities intermittently. Also, has hallucinations She appears more tired compared to previous days. Review of Systems Review of Systems: All systems reviewed & are unremarkable except as noted in Subjective Physical Exam Physical Exam: Constitutional: Sleepy; awake able to voice. Chest; Port-A-Cath in place Respiratory: normal respiratory effort, lungs clear to auscultation, no wheeze, rales, rhonchi. Normal insp/exp effort, no accessory muscle use Cardiovascular: RRR, no murmur, no edema Vessels: no JVD or carotid bruit Chest: normal inspection of chest Abdomen: normal bowel sounds, soft, nontender, no hepatosplenomegaly Musculoskeletal: no cyanosis or clubbing, extremities motor strength 5/5 Skin: Abdomen folds with erythema, redness. Neurologic: PERRL, EOMI, accommodation nl, no face palsy, no dysarthria CN's II- XI intact bilaterally and moves all extremities Psychiatric: A+Ox3, euthymic affect Results & Data Results & Data Vital Signs (Past 12 Hours) Vital Signs Temp Pulse Resp BP Pulse Ox O2 Del Method O2 Flow Rate 10/03/24 07:53 36.6 C 71 18 148/94 H 97 Nasal Cannula 2 10/03/24 07:15 Nasal Cannula 2 (8) Fecal incontinence Fecal incontinence type: unspecified Qualified Code(s): R15.9 - Full incontinence of feces
[2024-10-03] MEDS: LORazepam 0.5 MG TAB PO SCH (14:55)
[2024-10-03] MEDS: HYDROmorphone HCL 4 MG TAB PO PRN (18:22)
[2024-10-03 20:02] VITALS: RESP 20
[2024-10-03] MEDS: dexAMETHasone 4 MG TAB PO SCH (21:19)
[2024-10-04 00:12] VITALS: TEMP 97.7
[2024-10-04 07:59] VITALS: PULSE 90; O2SAT 93
[2024-10-04] MEDS ORDERED: STROKE PATIENT DISCHARGE STA (09:41)
--- NOTE | 2024-10-04 10:25 | Pharmacy Report ---
- Date of Service October 04, 2024 - Pharmacy CVA/TIA Medication Review Medications to Prevent Stroke handout has been added to the patients discharge packet. Antiplatelet(s) * aspirin 81mg PO daily Cholesterol * patient discharging home on hospice DVT Prophylaxis * SCD knee Therapeutic Anticoagulation * No history of Afib/Aflutter noted Type 2 Diabetes * Patient does not have T2DM
[2024-10-04 11:20] VITALS: BP 160/90
[2024-10-04] MEDS: HEPARIN 100 UNIT/ML 5ML FLUSH FLUSH PRN (13:13)
--- NOTE | 2024-10-04 14:50 | Discharge Summary ---
Date of Service October 04, 2024 Admission HPI Per Admitting Provider Lissette valentino 59y/o F with PMHx significant for hypothyroidism, HLD, HTN, prediabetes, CHON with intolerance to CPAP, vitamin B deficiency, vitamin D deficiency, severe obesity, recurrent endometrial cancer, iron deficiency anemia, CKD stage IIIa, urge incontinence of urine, restless leg syndrome, cervical DDD, pseudotumor cerebri syndrome, depression, anxiety and persistent insomnia who presented to the ED via referral by her outpatient oncologist for evaluation multiple complaints including increased generalized weakness, decrease in overall mobility, SOB, weight gain and worsening candidal intertrigo beneath her abdominal folds. History obtained from the patient, daughter at bedside and associated chart review. Known recurrent endometrial cancer. Follows with Dr. Wilson of [facility]. First diagnosed in December 2021 and she underwent robotic assisted total laparoscopic hysterectomy with bilateral salpingo-oophorectomy and bilateral sentinel pelvic lymph node dissection with pathology consistent with endometrioid adenocarcinoma. Postoperatively patient required no further treatment up until she experienced an episode of rectal bleeding and had a colonoscopy done in June 2023 which revealed ulcerated mucosa with stigmata of recent bleeding present in the sigmoid colon. Biopsy was positive for atypical glands most consistent with metastatic carcinoma of endometrial origin. Had both chest CT and CTAP done in July 2023 which revealed a heterogenous masslike enlargement of the uterus which extended to the endocervical canal highly concerning for neoplasm. The mass was noted to be inseparable from the urinary bladder anteriorly and sigmoid colon posteriorly subsequently raising concern for invasion. Core biopsy from the masses was positive for metastatic carcinoma favoring endometrial adenocarcinoma. She completed 3 cycles of chemotherapy including combination of Taxol and carboplatin and also completed radiation therapy. Postradiation therapy she received 3 cycles of single agent carboplatin. Because of neuropathy the Taxol was omitted. She received last dose of chemotherapy on 03/10/2024. Had subsequent follow-up CT chest and CTAP in August 2024 which revealed a mass that appeared to involve the vaginal cuff, posterior aspect of the urinary bladder and inferior aspect of the sigmoid colon measuring approximately 5.7 x 3.9 x 3.4 cm, previously 5.3 x 3.4 x 3.1 cm. Mass presumably reflects the patient's known recurrent endometrial cancer. Also noted new moderate right and mild left hydroureteronephrosis secondary to the mass. It was also noted that there was air present within the vaginal cuff which is nonspecific but raises the possibility of a colovaginal fistula. She is currently on a chemotherapy regimen consisting of Lenvima and Keytruda. Currently on day 14 of the Lenvima. Received dose of Keytruda today. Progressively worsening generalized weakness over the past month with significant decline in her overall mobility. Patient unable to walk even a few steps without significant assistance and feeling short of breath. Has been using a walker at home however can barely stand without assistance. Approximate weight gain of about 20 pounds in the last month or so. Also with worsening candidal intertrigo beneath her abdominal folds/pannus - noted that previous clotrimazole cream has been ineffective. Patient has been using nystatin powder without much improvement unfortunately and has a lot of pain with palpation of this area. Recently saw [facility] yesterday. Started on fentanyl patch for long-acting pain relief and PRN oral Dilaudid 2mg every 4 hours for breakthrough pain. Daughter endorses that she has been having some visual hallucinations over the past 2 weeks in addition to a "hard time coming up with words" occasionally. Also with bowel and urinary incontinence. Endorses that she now needs to wear incontinence briefs. No urinary burning or discomfort however did note hematuria today. Admission Exam Per Admitting Provider Head: normocephalic, Atraumatic Eyes: normal inspection, EOMI Neck: supple, Trachea midline Respiratory/Chest: Normal breath sounds, CTA, No accessory muscle use Cardiovascular: S1, S2, No murmur Abdomen/GI:Soft, Non tender, Bowel sounds present Extremities/Musculoskeletal:normal inspection, nonpitting edema Neurologic/Psych:AAOX3, grossly no focal neurological deficits Skin: normal color, warm,+ abdominal folds with erythema, small wounds, tenderne Principal Diagnosis (1) Hydroureteronephrosis: (2) Ambulatory dysfunction: (3) Abnormal CT of the abdomen: (4) Recurrent carcinoma of endometrium: (5) Visual hallucinations: (6) Acute kidney injury superimposed on stage 3a chronic kidney disease: Discharge Exam Constitutional: Sleepy; awake able to voice. Chest; Port-A-Cath in place Respiratory: normal respiratory effort, lungs clear to auscultation, no wheeze, rales, rhonchi. Normal insp/exp effort, no accessory muscle use Cardiovascular: RRR, no murmur, no edema Vessels: no JVD or carotid bruit Chest: normal inspection of chest Abdomen: normal bowel sounds, soft, nontender, no hepatosplenomegaly Musculoskeletal: no cyanosis or clubbing, extremities motor strength 5/5 Skin: Abdomen folds with erythema, redness. Neurologic: PERRL, EOMI, accommodation nl, no face palsy, no dysarthria CN's II- XI intact bilaterally and moves all extremities Psychiatric: A+Ox3, euthymic affect Discharge Data Allergies Allergy/AdvReac Type Severity Reaction Status Date / Time gabapentin Allergy hallucinations, Verified 10/02/23 08:49 tachycardia, "arms started flying" Consultations 09/30/24 16:53 ED Decision to Admit Stat 09/30/24 21:11 Consult Urology Routine 10/01/24 08:00 Consult Neurology Routine Procedures Performed Operation Date: 10/01/24 09:40 Actual Procedures p Cystoscopy(Right) - Keegan Chun MD Ordered Studies 09/30/24 14:05 CT abd pelvis wo con Stat CT chest diagnostic wo con Stat 09/30/24 14:25 CT lumbar spine wo con Stat 09/30/24 18:13 MRI Brain [MR brain wo/w con] Routine 10/01/24 FL KUB Routine US carotid doppler BI Routine Hospital Course (1) Hydroureteronephrosis: (2) Ambulatory dysfunction: (3) Abnormal CT of the abdomen: (4) Recurrent carcinoma of endometrium: (5) Visual hallucinations: (6) Acute kidney injury superimposed on stage 3a chronic kidney disease: (7) Candidal intertrigo: (8) Fecal incontinence: Lissette Chavez a 59y/o F with PMHx significant for hypothyroidism, HLD, HTN, prediabetes, CHON with intolerance to CPAP, vitamin B deficiency, vitamin D deficiency, severe obesity, recurrent endometrial cancer, iron deficiency anemia, CKD stage IIIa, urge incontinence of urine, restless leg syndrome, cervical DDD, pseudotumor cerebri syndrome, depression, anxiety and persistent insomnia who presented to the ED via referral by her outpatient oncologist for evaluation multiple complaints including increased generalized weakness, decrease in overall mobility, SOB, weight gain and worsening candidal intertrigo beneath her abdominal folds. Known recurrent endometrial cancer. Follows with Dr. Wilson of [facility]. First diagnosed in December 2021 and she underwent robotic assisted total laparoscopic hysterectomy with bilateral salpingo-oophorectomy and bilateral sentinel pelvic lymph node dissection with pathology consistent with endometrioid adenocarcinoma. Postoperatively patient required no further treatment up until she experienced an episode of rectal bleeding and had a colonoscopy done in June 2023 which revealed ulcerated mucosa with stigmata of recent bleeding present in the sigmoid colon. Biopsy was positive for atypical glands most consistent with metastatic carcinoma of endometrial origin. Patient underwent radiation and round of chemotherapy. However, CT chest and CT abdomen pelvis showed possible recurrent endometrial cancer. CT abdomen pelvis done here shows moderate right-sided hydro nephrosis as well as hyperdense focus within dependent urinary bladder. Urinalysis is suggestive of infection. Urine culture growing Enterococcus faecalis MRI brain showing 2 tiny focus of acute ischemia within the left cerebellum and left frontal lobe. 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 Patient has been going through rounds of treatments since last 3 years; her quality of life has gradually declined. We discussed possibility of hospice care after the hospitalization at home which prince arceo is agreeable with. She is agreeable with trying ureteral stent placement if possible; does not want nephrostomy tube. Cystoscopy showed suspected invasion of endometrial cancer into the bladder trigone; patient did not want additional intervention. CODE STATUS changed to DNR/DNI. Plan was discharged home with hospice in consistent with her goals of care. Please note the above document was generated using voice recognition software. It may contain grammatical, syntax or spelling errors. Any formal questions or concerns about the content, text or information contained within the body of this dictation should be directly addressed to the provider for clarification Total Time Total Time Spent Total Time Spent (In Minutes): 35 Total Time Includes: Examination of the Patient, Discharge Planning, Medication Reconciliation, Communication With Other Providers and Other Discharge Plan Discharge Items Patient Disposition: Hospice - Home Reason For Visit: R-SIDED HYDROURETERONEPHROSIS,UTI Discharge Diagnosis: Metastatic endometrial cancer UTI Activity: Resume your previous activity Non-emergency contact: Primary Care Provider Call non-emergency contact if: you have any medication questions and your symptoms worsen Follow-up/Referrals: Lashawn Becker MD [Primary Care Provider] - Diet: Regular Addtl Attending Provider Instructions: You are prescribed following medication; Augmentin twice a day for 4 days Dexamethasone 4 mg twice a day Ativan 0.5 mg every 6 hours as needed Aspirin 81 mg once a day Pending Studies at Discharge: No Stand-Alone Forms: My [facility], Medications to Prevent Stroke Medications and DC Order Prescriptions: New lorazepam 0.5 mg Tablet 0.5 mg PO Q6H PRN (Reason: agitation) Qty: 10 0RF dexamethasone 4 mg Tablet 4 mg PO BID Qty: 10 0RF amoxicillin-pot clavulanate 875-125 mg Tablet 1 tab PO BIDM 4 Days Qty: 8 0RF hydromorphone [Dilaudid] 4 mg tablet 4 mg PO Q4H PRN (Reason: pain) Qty: 14 0RF aspirin 81 mg capsule 81 mg PO DAILY Qty: 30 0RF Continued nystatin-triamcinolone 100,000-0.1 unit/g-% cream 1 applic topical BID PRN (Reason: Other) ropinirole 2 mg tablet 3 mg PO TID levothyroxine 200 mcg capsule 200 mcg PO QAM ondansetron HCl 8 mg tablet 8 mg PO Q8H PRN (Reason: n/v) prochlorperazine maleate [Compazine] 10 mg tablet 10 mg PO Q6H PRN (Reason: n/v) docusate sodium 100 mg capsule 100 mg PO BID PRN (Reason: Constipation) ibuprofen 200 mg Capsule 400 mg PO Q6H PRN (Reason: Pain) B12 1 tab PO DAILY oxybutynin chloride 10 mg Tablet Extended Release 24hr 20 mg PO DAILY urea 20 % Cream 1 applic TOPICAL DAILY Rx Instructions: Apply topically to affected area 2 times a day. Apply topically to hands and feet twice daily - Topical. clonazepam 0.5 mg Tablet 0.5 - 1 mg PO HS Rx Instructions: administer 30 minutes before bedtime nortriptyline 50 mg Capsule 50 mg PO HS Lenvima 20 mg/day (10 mg x 2) Capsule 20 mg PO DAILY polyethylene glycol 3350 [Miralax] 17 gram Powder In Packet 17 g PO DAILY Changed nystatin 100,000 unit/gram powder 1 applic topical BID PRN (Reason: Other) Qty: 0 0RF Discontinued lisinopril 5 mg Tablet 5 mg PO QAM Dilaudid 2 mg tablet 2 mg PO Q4H PRN (Reason: Breakthrough Pain, Severe) Rx Instructions: Take 1 Tablet by mouth every 4 hours as needed for Pain, Severe. Discharge Orders: Discharge Order (Routine); Ordered 10/04/24 Ordered By: Chirag Rhoades Admission Data Admit Date/Time: 09/30/24 18:07 Attending Provider: Chirag Rhoades Admit Provider: Alberto Valverde Primary Care Provider: Lashawn Becker Other Providers: Alberto Valverde; Laci Crespo; Valerie Beltran; Arthur Magana; Valerie Mckinney; Kirby Martin; Chris Dickinson; Simón Arreaga; William Rodriguez; Elizabeth Mejia; Ming Gutierrez; Romulo Ramires; Aleyda Bronson; Keegan Trent; Lianne Fuller; Chelsey Richard; William Butt; Mary Enciso Other Interventions: Discharge Summary Assessment (RN) Last Done: 10/04/24 11:20
== END 2024-10-04 13:41 | disposition hospice, home (50) | DRG 686 ==
LOC: ED 13:30 → 2N 18:07 → SUATTDRO 18:07 → 2N 20:48 → 2W 10-01 18:21